=== PATIENT | female | born 1990 | race Caucasian/White ===

== ENCOUNTER 2018-03-29 16:01 | Inpatient (IN) | payer OTHER ==
[2018-03-29] MEDS ORDERED: THIAMINE 100 MG TAB PO SCH (17:00)
[2018-03-29] MEDS ORDERED: SODIUM CHLORIDE 0.9% 1,000 ML IV STA (17:03)
[2018-03-29] MEDS ORDERED: LORazepam 1 MG TAB PO STA (17:08)
[2018-03-29] MEDS ORDERED: ONDANSETRON 4 MG/2 ML VIAL IVP STA (17:09)
[2018-03-29 17:20] LABS: Chloride 102 mmol/L (98-107)
[2018-03-29 17:23] LABS: ALT 387 U/L (9-52); Albumin 4.1 g/dL (3.5-5.0); Alkaline Phosphatase 149 U/L (38-126); Amylase 133 U/L (30-110); Anion Gap 11 mmol/L; Blood Urea Nitrogen 4 mg/dL (7-17); Calcium 8.6 mg/dL (8.4-10.2); Carbon Dioxide 22 mmol/L (22-30); Glucose 92 mg/dL (74-99); Lipase 987 U/L (23-300); Potassium 3.9 mmol/L (3.5-5.1); Sodium 135 mmol/L (137-145); Total Bilirubin 1.1 mg/dL (0.2-1.3); Total Protein 7.1 g/dL (6.3-8.2)
[2018-03-29 17:24] LABS: Basophils % (A) 1 %; Eosinophils # (A) 0.1 k/uL (0-0.7); Eosinophils % (A) 4 %; HCT 30.4 % (34.0-46.0); HGB 10.7 gm/dL (11.4-16.0); Lymphocytes # (A) 0.3 k/uL (1.0-4.8); Lymphocytes % (A) 15 %; MCH 34.9 pg (25.0-35.0); MCHC 35.2 g/dL (31.0-37.0); MCV 99.2 fL (80.0-100.0); Macrocytosis Slight; Mean Platelet Volume 8.7; Monocytes # (A) 0.1 k/uL (0-1.0); Monocytes % (A) 6 %; Neutrophils # (A) 1.4 k/uL (1.3-7.7); Neutrophils % (A) 73 %; RBC 3.06 m/uL (3.80-5.40); RDW 15.6 % (11.5-15.5)
--- NOTE | 2018-03-29 17:24 | ED ---
General Adult HPI - General Chief complaint: Vaginal Bleeding Stated complaint: Bleeding rectum Time Seen by Provider: 03/29/18 16:17 Source: patient, RN notes reviewed Mode of arrival: ambulatory Limitations: no limitations - History of Present Illness Initial comments: 27-year-old female presents to the emergency department for a chief complaint of vaginal bleeding x 1 week. Patient was transferred from [facility] due to pancytopenia and vaginal bleeding. Patient states the bleeding started about one week ago and she has been passing clots. Patient has also been nauseous. She has a seizure disorder and takes Keppra for this. Patient also complains of lower abdominal cramping. Patient states her menstrual cycles are irregular and she has not had a period for the past 3 months. Patient denies any chance of . Patient denies concerns for sexually transmitted diseases. According to the documents from [facility] patient's hemoglobin decreased from 12.4 to 9.0 18 hours later while in the ED. Patient was held for an alcohol level of 413. Platelets were 43. Patient was sent for hematology consult. Patient states she is feeling somewhat lightheaded but this may be related to alcohol. Patient states she "drinks more days than not." Patient states she drinks no more than a pint of vodka on days that she does drink. Patient has no other complaints at this time including fevers, chest pain, headache, or visual changes. - Related Data Home Medications Medication Instructions Recorded Confirmed levETIRAcetam [Keppra] 750 mg PO BID 03/29/18 03/29/18 Allergies Allergy/AdvReac Type Severity Reaction Status Date / Time Penicillins Allergy Unknown Verified 03/29/18 16:15 Review of Systems ROS Statement: Those systems with pertinent positive or pertinent negative responses have been documented in the HPI. ROS Other: All systems not noted in ROS Statement are negative. Past Medical History Past Medical History: Seizure Disorder History of Any Multi-Drug Resistant Organisms: None Reported Past Surgical History: Section, Orthopedic Surgery Past Psychological History: No Psychological Hx Reported Smoking Status: Current some day smoker Past Alcohol Use History: Daily Past Drug Use History: None Reported - Past Family History Father Family Medical History: No Reported History Mother Family Medical History: No Reported History General Exam Limitations: no limitations General appearance: alert, in no apparent distress (well appearing, interactive , ) Head exam: Present: atraumatic, normocephalic, normal inspection Eye exam: Present: PERRL, EOMI, other (small subconjunctival hemorrhage noted of the right eye, patient states this improving and was worse one week ago.). Absent: scleral icterus, conjunctival injection ENT exam: Present: normal exam, normal oropharynx, mucous membranes moist, TM's normal bilaterally, normal external ear exam Neck exam: Present: normal inspection, full ROM. Absent: tenderness, meningismus, lymphadenopathy Respiratory exam: Present: normal lung sounds bilaterally. Absent: respiratory distress, wheezes, rales, rhonchi, stridor Cardiovascular Exam: Present: regular rate, normal rhythm, normal heart sounds. Absent: systolic murmur, diastolic murmur, rubs, gallop, clicks GI/Abdominal exam: Present: soft, tenderness (diffuse mild abdominal tenderness) , normal bowel sounds. Absent: distended, guarding, rebound, rigid External exam: Absent: erythema, swelling, lesions, lacerations, ecchymosis Speculum exam: Present: vaginal bleeding. Absent: vaginal discharge, cervical discharge, foreign body By manual exam: Present: adnexal tenderness, uterine tenderness, other (mild generalized tenderness noted on bimanual. No cervical motion tenderness.). Absent: cervical motion tenderness, adnexal mass, uterine enlargement Neurological exam: Present: alert, oriented X3, CN II-XII intact Psychiatric exam: Present: normal affect, normal mood Course Vital Signs 03/29/18 03/29/18 03/29/18 16:05 17:19 18:42 Temperature 98.3 F Pulse Rate 90 90 87 Pulse Rate [ Left Supine Brachial] Respiratory 18 18 18 Rate Blood Pressure 117/70 139/78 126/69 Blood Pressure [Left Arm Supine] O2 Sat by Pulse 100 100 100 Oximetry 03/29/18 03/29/18 03/29/18 19:38 21:01 22:07 Temperature 98.8 F Pulse Rate 94 91 Pulse Rate [ 90 Left Supine Brachial] Respiratory 16 17 16 Rate Blood Pressure 131/83 142/90 Blood Pressure 117/81 [Left Arm Supine] O2 Sat by Pulse 97 97 97 Oximetry Medical Decision Making - Medical Decision Making 27-year-old female transferred from [facility] for vaginal bleeding and pancytopenia. Patient has been experiencing vaginal bleeding for about one week. Patient denies any urinary symptoms, cough, congestion, shortness of breath, or fevers. Patient also complains of lower abdominal cramping. Patient is alert and oriented. She does not seem in distress. On exam patient has mild diffuse abdominal tenderness. Speculum exam reveals moderate vaginal bleeding with about 10 cc blood in vaginal vault. Bimanual exam does not reveal any cervical motion tenderness. Vitals within normal limits. Patient is afebrile. Patient does have leukopenia of 1.9 in the emergency department. Hemoglobin 10.7 and hematocrit 30.4. Platelet count 60. Patient also has an AST of 1387 and ALT of 387. Lipase 987. Patient does have a history of alcoholism. UA from [facility] shows negative leuk esterase without WBCs. Consistent findings here in the ER. Culture sent. HCG Quant negative. Ultrasound shows cervical cysts without endometrial thickening. Bilateral simple ovarian cyst. No evidence of ovarian torsion. On reevaluation patient is no longer tender upon palpation of the abdomen so CAT scan was not warranted at this point. It is likely that her lower abdominal cramping is related to vaginal bleeding. Patient would benefit from further workup of panctopenia as well as pancreatitis management. Patient will be admitted for pancytopenia of unknown source, vaginal bleeding, and pancreatitis. - Lab Data Result diagrams: 03/29/18 16:50 03/29/18 16:50 Lab Results 03/29/18 03/29/18 03/29/18 Range/Units 16:50 16:50 16:50 WBC 1.9 L* (3.8-10.6) k/uL RBC 3.06 L (3.80-5.40) m/uL Hgb 10.7 L (11.4-16.0) gm/dL Hct 30.4 L (34.0-46.0) % MCV 99.2 (80.0-100.0) fL MCH 34.9 (25.0-35.0) pg MCHC 35.2 (31.0-37.0) g/dL RDW 15.6 H (11.5-15.5) % Plt Count 60 L (150-450) k/uL Neutrophils % 73 % Lymphocytes % 15 % Monocytes % 6 % Eosinophils % 4 % Basophils % 1 % Neutrophils # 1.4 (1.3-7.7) k/uL Lymphocytes # 0.3 L (1.0-4.8) k/uL Monocytes # 0.1 (0-1.0) k/uL Eosinophils # 0.1 (0-0.7) k/uL Basophils # 0.0 (0-0.2) k/uL Manual Slide Review Performed Large Platelets Present Poikilocytosis (manual Present Macrocytosis Slight PT (9.0-12.0) sec INR (<1.2) APTT (22.0-30.0) sec Sodium 135 L (137-145) mmol/L Potassium 3.9 (3.5-5.1) mmol/L Chloride 102 (98-107) mmol/L Carbon Dioxide 22 (22-30) mmol/L Anion Gap 11 mmol/L BUN 4 L (7-17) mg/dL Creatinine 0.59 (0.52-1.04) mg/dL Est GFR (CKD-EPI)AfAm >90 (>60 ml/min/1.73 sqM) Est GFR (CKD-EPI)NonAf >90 (>60 ml/min/1.73 sqM) Glucose 92 (74-99) mg/dL Calcium 8.6 (8.4-10.2) mg/dL Magnesium (1.6-2.3) mg/dL Total Bilirubin 1.1 (0.2-1.3) mg/dL AST 1387 H (14-36) U/L ALT 387 H (9-52) U/L Alkaline Phosphatase 149 H (38-126) U/L Total Protein 7.1 (6.3-8.2) g/dL Albumin 4.1 (3.5-5.0) g/dL Amylase 133 H (30-110) U/L Lipase 987 H (23-300) U/L HCG, Quant <2.4 mIU/mL Urine Color Dark Red Urine Appearance Bloody H (Clear) Urine pH (5.0-8.0) Ur Specific [place] (1.001-1.035) Urine Protein (Negative) Urine Glucose (UA) (Negative) Urine Ketones (Negative) Urine Blood (Negative) Urine Nitrite (Negative) Urine Bilirubin (Negative) Urine Urobilinogen (<2.0) mg/dL Ur Leukocyte Esterase (Negative) Urine RBC >182 H (0-5) /hpf Urine WBC (0-5) /hpf Ur Squamous Epith Cells 3 (0-4) /hpf Urine Bacteria (None) /hpf Urine Mucus (None) /hpf Urine HCG, Qual (Not Detectd) Blood Type Blood Type Confirm Blood Type Recheck Antibody Screen Spec Expiration Date 03/29/18 03/29/18 03/29/18 Range/Units 16:50 16:50 16:50 WBC (3.8-10.6) k/uL RBC (3.80-5.40) m/uL Hgb (11.4-16.0) gm/dL Hct (34.0-46.0) % MCV (80.0-100.0) fL MCH (25.0-35.0) pg MCHC (31.0-37.0) g/dL RDW (11.5-15.5) % Plt Count (150-450) k/uL Neutrophils % % Lymphocytes % % Monocytes % % Eosinophils % % Basophils % % Neutrophils # (1.3-7.7) k/uL Lymphocytes # (1.0-4.8) k/uL Monocytes # (0-1.0) k/uL Eosinophils # (0-0.7) k/uL Basophils # (0-0.2) k/uL Manual Slide Review Large Platelets Poikilocytosis (manual Macrocytosis PT (9.0-12.0) sec INR (<1.2) APTT (22.0-30.0) sec Sodium (137-145) mmol/L Potassium (3.5-5.1) mmol/L Chloride (98-107) mmol/L Carbon Dioxide (22-30) mmol/L Anion Gap mmol/L BUN (7-17) mg/dL Creatinine (0.52-1.04) mg/dL Est GFR (CKD-EPI)AfAm (>60 ml/min/1.73 sqM) Est GFR (CKD-EPI)NonAf (>60 ml/min/1.73 sqM) Glucose (74-99) mg/dL Calcium (8.4-10.2) mg/dL Magnesium 1.3 L (1.6-2.3) mg/dL Total Bilirubin (0.2-1.3) mg/dL AST (14-36) U/L ALT (9-52) U/L Alkaline Phosphatase (38-126) U/L Total Protein (6.3-8.2) g/dL Albumin (3.5-5.0) g/dL Amylase (30-110) U/L Lipase (23-300) U/L HCG, Quant mIU/mL Urine Color Urine Appearance (Clear) Urine pH (5.0-8.0) Ur Specific [place] (1.001-1.035) Urine Protein (Negative) Urine Glucose (UA) (Negative) Urine Ketones (Negative) Urine Blood (Negative) Urine Nitrite (Negative) Urine Bilirubin (Negative) Urine Urobilinogen (<2.0) mg/dL Ur Leukocyte Esterase (Negative) Urine RBC (0-5) /hpf Urine WBC (0-5) /hpf Ur Squamous Epith Cells (0-4) /hpf Urine Bacteria (None) /hpf Urine Mucus (None) /hpf Urine HCG, Qual Not Detected (Not Detectd) Blood Type B Positive Blood Type Confirm Blood Type Recheck CABO Indicated Antibody Screen NEGATIVE Spec Expiration Date 04/01/2018 - 234903/29/18 03/29/18 03/29/18 Range/Units 16:50 17:10 19:30 WBC (3.8-10.6) k/uL RBC (3.80-5.40) m/uL Hgb (11.4-16.0) gm/dL Hct (34.0-46.0) % MCV (80.0-100.0) fL MCH (25.0-35.0) pg MCHC (31.0-37.0) g/dL RDW (11.5-15.5) % Plt Count (150-450) k/uL Neutrophils % % Lymphocytes % % Monocytes % % Eosinophils % % Basophils % % Neutrophils # (1.3-7.7) k/uL Lymphocytes # (1.0-4.8) k/uL Monocytes # (0-1.0) k/uL Eosinophils # (0-0.7) k/uL Basophils # (0-0.2) k/uL Manual Slide Review Large Platelets Poikilocytosis (manual Macrocytosis PT 9.8 (9.0-12.0) sec INR 1.0 (<1.2) APTT 22.8 (22.0-30.0) sec Sodium (137-145) mmol/L Potassium (3.5-5.1) mmol/L Chloride (98-107) mmol/L Carbon Dioxide (22-30) mmol/L Anion Gap mmol/L BUN (7-17) mg/dL Creatinine (0.52-1.04) mg/dL Est GFR (CKD-EPI)AfAm (>60 ml/min/1.73 sqM) Est GFR (CKD-EPI)NonAf (>60 ml/min/1.73 sqM) Glucose (74-99) mg/dL Calcium (8.4-10.2) mg/dL Magnesium (1.6-2.3) mg/dL Total Bilirubin (0.2-1.3) mg/dL AST (14-36) U/L ALT (9-52) U/L Alkaline Phosphatase (38-126) U/L Total Protein (6.3-8.2) g/dL Albumin (3.5-5.0) g/dL Amylase (30-110) U/L Lipase (23-300) U/L HCG, Quant mIU/mL Urine Color Yellow Urine Appearance Clear (Clear) Urine pH 7.0 (5.0-8.0) Ur Specific [place] 1.009 (1.001-1.035) Urine Protein Negative (Negative) Urine Glucose (UA) Negative (Negative) Urine Ketones Negative (Negative) Urine Blood Negative (Negative) Urine Nitrite Negative (Negative) Urine Bilirubin Negative (Negative) Urine Urobilinogen 4.0 (<2.0) mg/dL Ur Leukocyte Esterase Trace H (Negative) Urine RBC <1 (0-5) /hpf Urine WBC 5 (0-5) /hpf Ur Squamous Epith Cells (0-4) /hpf Urine Bacteria Rare H (None) /hpf Urine Mucus Rare H (None) /hpf Urine HCG, Qual (Not Detectd) Blood Type Blood Type Confirm B Positive Blood Type Recheck Antibody Screen Spec Expiration Date Disposition Clinical Impression: Pancytopenia, Pancreatitis, Vaginal bleeding Disposition: ADMITTED IP TO THIS [facility] Condition: Good Time of Disposition: 20:36
[2018-03-29 17:27] LABS: WBC 1.9 k/uL (3.8-10.6)
[2018-03-29 17:30] LABS: RBC,Urine >182 /hpf (0-5); Squamous Epithelial Cell,Urine 3 /hpf (0-4)
[2018-03-29 17:31] LABS: Color,Urine Dark Red
[2018-03-29 17:32] LABS: Appearance,Urine Bloody (Clear)
[2018-03-29 17:39] LABS: AST 1387 U/L (14-36)
[2018-03-29 17:40] LABS: HCG,Quantitative Serum <2.4 mIU/mL
[2018-03-29 17:41] LABS: Large Platelets Present; Platelet Count 60 k/uL (150-450); Poikilocytosis (M) Present
--- NOTE | 2018-03-29 17:57 | US ---
EXAMINATION TYPE: US transvaginal DATE OF EXAM: 03/29/2018 COMPARISON: NONE CLINICAL HISTORY: pain. Heavy vaginal bleeding x 1 week TECHNIQUE: Transvaginal (TV). Date of LMP: 1 week ago EXAM MEASUREMENTS: Uterus: 11.0 x 4.3 x 5.3 cm Endometrial Stripe: 1.2 cm Right Ovary: 3.2 x 2.0 x 3.5 cm Left Ovary: 2.5 x 1.7 x 3.1 cm 1. Uterus: Anteverted Heterogeneous with multiple Nabothian cysts in cervix 2. Endometrium: Ill-defined borders, thickened 3. Right Ovary: Dominant follicle= 1.8 x 1.1 cm 4. Left Ovary: Follicles Spectral, color and waveform doppler imaging shows good arterial and venous flow within the ovaries ; there is no evidence for ovarian torsion. 5. Bilateral Adnexa: wnl 6. Posterior cul-de-sac: wnl IMPRESSION: Cervical cysts. No endometrial thickening. Bilateral simple ovarian cysts. No evidence of ovarian torsion.
[2018-03-29 20:09] LABS: Partial Thromboplastin Time 22.8 sec (22.0-30.0); Prothrombin Time 9.8 sec (9.0-12.0)
[2018-03-29] MEDS ORDERED: NALOXONE 0.4 MG/ML 1 ML VIAL IV PRN (20:29)
[2018-03-29] MEDS ORDERED: LORazepam 2 MG/ML INJ IV PRN ×2 (21:23)
[2018-03-29] MEDS ORDERED: THIAMINE 100 MG/ML 2 ML VIAL IM STA (21:23)
[2018-03-29] MEDS ORDERED: SODIUM CHLORIDE 0.9% 1,000 ML IV SCH (21:30)
[2018-03-29] MEDS: THIAMINE 100 MG TAB PO SCH (22:28)
[2018-03-29 22:30] LABS: Appearance,Urine Clear (Clear); Bacteria,Urine Rare /hpf; Bilirubin,Urine Negative (Negative); Blood,Urine Negative (Negative); Color,Urine Yellow; Glucose,Urine (UA) Negative (Negative); Ketones,Urine Negative (Negative); Leukocyte Esterase,Urine Trace (Negative); Mucus,Urine Rare /hpf; Nitrite,Urine Negative (Negative); Protein,Urine Negative (Negative); RBC,Urine <1 /hpf (0-5); Specific Gravity,Urine 1.009 (1.001-1.035); WBC,Urine 5 /hpf (0-5)
[2018-03-29] MEDS ORDERED: HYDROmorphone 1 MG/ML 1 ML SYRINGE IVP PRN (23:26)
[2018-03-29] MEDS ORDERED: traMADol-ACETAMINOP 37.5-325MG 1 EACH TAB PO PRN (23:26)
[2018-03-29] MEDS ORDERED: TEMAZEPAM 15 MG CAP PO PRN (23:26)
[2018-03-29] MEDS ORDERED: traMADol 50 MG TAB PO PRN (23:27)
[2018-03-30] MEDS: MAGNESIUM SULFATE-D5W PMX 1 GM in DEXTROSE/WATER 1 100ML.BAG IVPB SCH ×2 (00:29→01:33)
[2018-03-30] MEDS: SODIUM CHLORIDE 0.9% 1,000 ML with POTASSIUM CHLORIDE 20 MEQ, MVI, ADULT NO.4 WITH VIT ... IV SCH ×10 (00:29→15:54)
--- NOTE | 2018-03-30 06:12 | HP ---
HISTORY AND PHYSICAL CHIEF COMPLAINTS: Vaginal bleeding and pancytopenia. HISTORY OF PRESENT ILLNESS: This 27-year-old woman with a past medical history of seizure disorder, history of heartburn, history of right ankle bruise sprain and significant history of alcohol and smoking being followed Dr. Salazar in the outpatient setting presented to [facility] with vaginal bleeding. The patient drinks 4-5 days out of the week and the patient could drink up to a pint of vodka and beer 5 or 6 on days that patient drinks. The patient was found to have pancytopenia and the patient was directed to [facility] for further evaluation and treatment. Hemoglobin reduced from 12.4 to 9 and alcohol was 413, platelets also reduced. There is no history of any fever, rigors. No headache, loss of consciousness, seizures at this time. PAST MEDICAL HISTORY: Seizure disorder, history of section, history of nicotine abuse, history of EtOH. MEDICATIONS: Prior to admission include Keppra 750 p.o. b.i.d. ALLERGIES: PENICILLIN. FAMILY HISTORY: No history of heart disease or strokes in family. SOCIAL HISTORY: History of smoking. No history of alcohol. REVIEW OF SYSTEMS: ENT: No diminished hearing or diminished vision. CARDIOVASCULAR: No angina. RESPIRATORY: As mentioned earlier. GI: No nausea. : No dysuria. NERVOUS SYSTEM: No numbness or weakness. ALLERGY/IMMUNOLOGY: No asthma or hayfever. MUSCULOSKELETAL: As mentioned earlier. HEMATOLOGY/ONCOLOGY: No history of anemia. ENDOCRINE: No history of diabetes or hypothyroidism. CONSTITUTIONAL: As mentioned earlier. DERMATOLOGY: Negative. RHEUMATOLOGY: Negative. PSYCHIATRY: As mentioned earlier. PHYSICAL EXAMINATION: Alert and oriented x3. Pulse 90, blood pressure 170/81, respiration 16, temperature 98.8, pulse ox 97% on room air. HEENT: Conjunctivae normal. Oral mucosa moist. Neck is no jugular venous distention. No carotid bruit. No lymph node enlargement. CARDIOVASCULAR: S1, S2. RESPIRATORY: Breath sounds diminished in the bases. A few scattered rhonchi. No crackles. ABDOMEN: Soft, mild diffuse disease. Nontender. No mass palpable. LEGS: No edema, no swelling. NERVOUS SYSTEM: Higher functions as mentioned. Moves all 4 limbs. No focal motor deficits. LYMPHATICS: No lymphadenopathy in the neck, axillae, groin. SKIN: No ulcer, rash, bleeding. LAB STUDIES: WBC 1, hemoglobin 10.7, platelets 60. Sodium is 135, AST is 1387, ALT is 387, and amylase 133 and lipase 987. ASSESSMENT: 1. Pancytopenia, possibly secondary to alcohol intake. 2. Acute alcoholic intoxication and withdrawal. 3. Acute pancreatitis possibly secondary to alcohol. 4. Acute alcoholic hepatitis with increased AST and ALT. 5. Hypomagnesemia. 6. Vaginal bleeding. 7. Seizure disorder. 8. History of untreated urinary tract infection. 9. History of gastroesophageal reflux disease. 10.History of right ankle sprain. 11.History of motion sickness. 12.History of nicotine dependence. RECOMMENDATIONS AND DISCUSSION: This 27-year-old woman who presented with multiple complex medical issues, we will monitor the patient closely. Continue the current management and symptomatic treatment. Alcohol cessation. CIWA protocol. Symptomatic treatment. Repeat labs. The exact etiology pancytopenia, unknown at this time, but could be secondary to alcohol. The patient also had normal coags with normal PT/INR and PTT. We will continue to monitor for any vaginal bleeding. In case of recurrence will recommend an [employer] consultation. Otherwise the transvaginal ultrasound showed cervical cyst and no evidence of torsion and endometrial thickening and bilateral simple ovarian cyst also. The prognosis guarded because of multiple complex medical issues and further recommendations to follow. I would also recommend a CT scan of the abdomen if not done elsewhere. A copy of dictation forwarded to for Dr. Salazar who is the primary physician. MMODL / IJN: [id number] /
[2018-03-30] MEDS: LORazepam 2 MG/ML INJ IV PRN ×2 (06:36→13:07)
[2018-03-30] MEDS: IOPAMIDOL-300 CONTRAST 30 ML VIAL (ORAL USE) PO PRN ×2 (06:43→07:58)
[2018-03-30 09:43] LABS: Basophils % (A) 1 %; Eosinophils # (A) 0.1 k/uL (0-0.7); Eosinophils % (A) 3 %; HCT 27.1 % (34.0-46.0); HGB 9.4 gm/dL (11.4-16.0); Lymphocytes # (A) 0.3 k/uL (1.0-4.8); Lymphocytes % (A) 8 %; MCH 35.3 pg (25.0-35.0); MCHC 34.7 g/dL (31.0-37.0); MCV 101.8 fL (80.0-100.0); Macrocytosis Slight; Monocytes # (A) 0.2 k/uL (0-1.0); Monocytes % (A) 6 %; Neutrophils # (A) 2.5 k/uL (1.3-7.7); Neutrophils % (A) 82 %; RBC 2.67 m/uL (3.80-5.40); RDW 15.9 % (11.5-15.5); WBC 3.1 k/uL (3.8-10.6)
[2018-03-30 10:00] LABS: ALT 537 U/L (9-52); Albumin 3.4 g/dL (3.5-5.0); Alkaline Phosphatase 127 U/L (38-126); Amylase 151 U/L (30-110); Anion Gap 7 mmol/L; Blood Urea Nitrogen 3 mg/dL (7-17); Calcium 8.4 mg/dL (8.4-10.2); Carbon Dioxide 27 mmol/L (22-30); Chloride 101 mmol/L (98-107); Glucose 87 mg/dL (74-99); Lipase 1245 U/L (23-300); Potassium 3.7 mmol/L (3.5-5.1); Sodium 135 mmol/L (137-145); Total Bilirubin 1.3 mg/dL (0.2-1.3); Total Protein 6.1 g/dL (6.3-8.2)
[2018-03-30 10:27] LABS: AST 1383 U/L (14-36)
[2018-03-30 10:37] LABS: Platelet Count 58 k/uL (150-450)
[2018-03-30 10:39] LABS: Poikilocytosis (M) Present
--- NOTE | 2018-03-30 11:10 | CT ---
EXAMINATION TYPE: CT abdomen pelvis wo con DATE OF EXAM: 03/30/2018 HISTORY: lower abdominal pain and vaginal bleeding CT DLP: 938 mGycm. Automated Exposure Control for Dose Reduction was Utilized. TECHNIQUE: CT scan of the abdomen and pelvis is performed with oral but without IV contrast. COMPARISON: Transvaginal pelvic ultrasound from yesterday. FINDINGS: Within the limitations of a non-contrast study, the following observations are made. LUNG BASES: No significant abnormality is appreciated. LIVER/GB: Liver is diffusely low dense consistent with marked diffuse fatty infiltration. Liver is fe lt overall upper limits of normal in size. Gallbladder has distended margins without CT dense intralu vero focal gallstones or surrounding inflammatory change. PANCREAS: Pancreas is slightly bulky particularly body and tail portion axial image 28 without surrou nding inflammatory change to suggest acute pancreatitis perhaps normal variant. SPLEEN: Spleen is upper limits of normal in size measuring 12.9 cm long axis axial image 24. Subcenti meter splenule splenic hilum axial image 29 is noted. ADRENALS: No significant abnormality is seen. KIDNEYS: No renal calculi or hydronephrosis is evident bilaterally. Bladder felt within normal limits . BOWEL: The oral contrast reaches level of the transverse colon. There is no suspicious small or large bowel dilatation. GENITAL ORGANS: There is heterogeneous anteverted uterus with complex suspected solid and cystic mass or lesion in the lower uterine segment and cervix, cervical neoplasm needs to be excluded seen best axial image 80. Correlation with direct physical exam and/or Pap smear is advised. Findings less susp icious on pelvic ultrasound which is more sensitive just showing multiple nabothian cysts. Both ovari es are seen in the adnexa without suspicious enlargement. LYMPH NODES: No greater than 1cm abdominal or pelvic lymph nodes are appreciated. OSSEOUS STRUCTURES: Mild facet arthropathy lower lumbar levels is seen.. OTHER: No significant additional abnormality is seen. IMPRESSION: Lower uterine segment and cervix are more suspicious on CT versus ultrasound and neoplasm needs to BE excluded. No suspicious masses or adenopathy otherwise identified.
[2018-03-30] MEDS ORDERED: ONDANSETRON 4 MG/2 ML VIAL IVP PRN (11:33)
[2018-03-30] MEDS: THIAMINE 100 MG TAB PO SCH ×2 (13:02→17:55)
--- NOTE | 2018-03-30 14:07 | P.CONS ---
History of Present Illness - Reason for Consult Consult date: 03/30/18 Pancreatitis elevated liver enzymes Requesting physician: Javier E Sheet - History of Present Illness 27-year-old female with a long-standing history of daily alcohol consumption on and off for several years last drink a few days prior to admission admitted with possible vaginal bleeding possibly hematuria she's unsure. Consultation requested for elevated pancreatic and liver enzymes. Denies history of pancreatic liver diseases. No history of hepatitis. She's been experiencing bloody discharge possibly vaginal possible hematuria with clots for 2 weeks. Mild lower abdominal pelvic discomfort. No history of pancreatitis. White count 1.9. Hemoglobin 10.7. Platelets 60,000. INR 1.0. Total bilirubin 1.1. AST 1387. ALT 387. AP 149. Lipase 987. Amylase 133. HCG not detected. Liver enzymes today total bilirubin 1.3. AST 1383. ALT 537. AP 127. Amylase 151. Lipase 1245. Presently denies upper abdominal pain. No fever or chills. No weight loss. Transvaginal ultrasound cervical cysts no endometrial thickening bilateral simple ovarian cysts. CT abdomen liver is diffusely low dense consistent with marked diffuse fatty infiltration. Gallbladder without stones or inflammatory changes. Pancreas slightly bulky in the body and tail without surrounding inflammatory change possible normal variant. Heterogeneous anteverted uterus with complex suspected solid and cystic mass or lesion in the lower uterine segment and cervix. Cervical neoplasm could not be excluded. Review of Systems Constitutional: Denies fever, chills, sweats, weight gain, or loss. HEENT: Negative for migraines, blurred vision or loss, earaches, drainage, tinnitus, oral mucosal lesions, dysphagia, or odynophagia. CARDIAC: Negative for chest pain, arrhythmias, or palpitation. RESPIRATORY: Negative for shortness of breath, hemoptysis, cough, or sputum production. GI: See HPI for pertinent findings. : Possible hematuria, denies urgency, frequency, polyuria, or dysuria. GYNc: Denies possibility of . Reports possible bloody vaginal discharge. MUSCULOSKELETAL: Negative for muscle aches, swelling, arthritis, and arthralgias. NEUROLOGIC: Negative for stroke or TIA. ENDOCRINE: Negative for thyroid problems. SKIN: Negative for rash or itching. 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 History of Any Multi-Drug Resistant Organisms: None Reported Past Surgical History: Section, Orthopedic Surgery Additional Past Surgical History / Comment(s): 2 rt foot sx in past Past Anesthesia/Blood Transfusion Reactions: Motion Sickness Past Psychological History: No Psychological Hx Reported Smoking Status: Current some day smoker Past Alcohol Use History: Daily Past Drug Use History: None Reported - Past Family History Father Family Medical History: No Reported History Mother Family Medical History: No Reported History Medications and Allergies Home Medications Medication Instructions Recorded Confirmed Type levETIRAcetam [Keppra] 750 mg PO BID 03/29/18 03/29/18 History Allergies Allergy/AdvReac Type Severity Reaction Status Date / Time Penicillins Allergy Unknown Verified 03/29/18 16:15 Physical Exam Vitals: Vital Signs Temp Pulse Pulse Resp BP BP Pulse Ox 03/30/18 07:00 98.8 F 100 20 109/72 100 03/29/18 22:07 98.8 F 90 16 117/81 97 03/29/18 21:01 91 17 142/90 97 03/29/18 19:38 94 16 131/83 97 03/29/18 18:42 87 18 126/69 100 03/29/18 17:19 90 18 139/78 100 03/29/18 16:05 98.3 F 90 18 117/70 100 Intake and Output 03/29/18 03/30/18 03/30/18 22:59 06:59 14:59 Intake Total 0 Balance 0 Intake: Oral 0 Other: # Voids 1 0 Weight 89.5 kg General appearance: The patient is alert, oriented, in no acute distress. HET: Head is normocephalic and atraumatic. Pupils are equal and reactive. Oropharynx is clear without lesions. Neck: Supple without lymphadenopathy. Trachea midline. Heart: S1 S2. Regular rate and rhythm. Lungs: No crackles or wheezes are heard. Abdomen: Soft, nontender, nondistended with bowel sounds. No peritoneal signs. No palpable organomegaly or masses. Extremities: Normal skin color and turgor. No cyanosis, rash, ulceration, clubbing, or edema. Radial and pedal pulses are 2/4 bilaterally. Neurological: No focal deficits. Strength and sensation are grossly intact. Results CBC & Chem 7: 18 08:34 03/30/18 08:34 Labs: Abnormal Lab Results - Last 24 Hours (Table) 03/29/18 03/29/18 03/29/18 Range/Units 16:50 16:50 16:50 WBC 1.9 L* (3.8-10.6) k/uL RBC 3.06 L (3.80-5.40) m/uL Hgb 10.7 L (11.4-16.0) gm/dL Hct 30.4 L (34.0-46.0) % MCV (80.0-100.0) fL MCH (25.0-35.0) pg RDW 15.6 H (11.5-15.5) % Plt Count 60 L (150-450) k/uL Lymphocytes # 0.3 L (1.0-4.8) k/uL Sodium 135 L (137-145) mmol/L BUN 4 L (7-17) mg/dL Magnesium (1.6-2.3) mg/dL AST 1387 H (14-36) U/L ALT 387 H (9-52) U/L Alkaline Phosphatase 149 H (38-126) U/L Total Protein (6.3-8.2) g/dL Albumin (3.5-5.0) g/dL Amylase 133 H (30-110) U/L Lipase 987 H (23-300) U/L Urine Appearance Bloody H (Clear) Ur Leukocyte Esterase (Negative) Urine RBC >182 H (0-5) /hpf Urine Bacteria (None) /hpf Urine Mucus (None) /hpf 03/29/18 03/29/18 03/30/18 Range/Units 16:50 19:30 08:34 WBC 3.1 L (3.8-10.6) k/uL RBC 2.67 L (3.80-5.40) m/uL Hgb 9.4 L (11.4-16.0) gm/dL Hct 27.1 L (34.0-46.0) % MCV 101.8 H (80.0-100.0) fL MCH 35.3 H (25.0-35.0) pg RDW 15.9 H (11.5-15.5) % Plt Count 58 L (150-450) k/uL Lymphocytes # 0.3 L (1.0-4.8) k/uL Sodium (137-145) mmol/L BUN (7-17) mg/dL Magnesium 1.3 L (1.6-2.3) mg/dL AST (14-36) U/L ALT (9-52) U/L Alkaline Phosphatase (38-126) U/L Total Protein (6.3-8.2) g/dL Albumin (3.5-5.0) g/dL Amylase (30-110) U/L Lipase (23-300) U/L Urine Appearance (Clear) Ur Leukocyte Esterase Trace H (Negative) Urine RBC (0-5) /hpf Urine Bacteria Rare H (None) /hpf Urine Mucus Rare H (None) /hpf 03/30/ Range/Units 08:34 WBC (3.8-10.6) k/uL RBC (3.80-5.40) m/uL Hgb (11.4-16.0) gm/dL Hct (34.0-46.0) % MCV (80.0-100.0) fL MCH (25.0-35.0) pg RDW (11.5-15.5) % Plt Count (150-450) k/uL Lymphocytes # (1.0-4.8) k/uL Sodium 135 L (137-145) mmol/L BUN 3 L (7-17) mg/dL Magnesium (1.6-2.3) mg/dL AST 1383 H (14-36) U/L ALT 537 H (9-52) U/L Alkaline Phosphatase 127 H (38-126) U/L Total Protein 6.1 L (6.3-8.2) g/dL Albumin 3.4 L (3.5-5.0) g/dL Amylase 151 H (30-110) U/L Lipase 1245 H (23-300) U/L Urine Appearance (Clear) Ur Leukocyte Esterase (Negative) Urine RBC (0-5) /hpf Urine Bacteria (None) /hpf Urine Mucus (None) /hpf CT scan - abdomen: report reviewed (Dr. Hartley) Assessment and Plan (1) Pancreatitis Narrative/Plan: 27-year-old female with a long-standing history of daily EtOH consumption admitted with possible vaginal bleeding possible hematuria 2 weeks with clots with elevated transaminases and pancreatic enzymes consistent with acute pancreatitis alcohol hepatitis underlying pancytopenia reflective of chronic liver disease platelet sequestration. CT imaging of the abdomen and pelvis could not exclude underlying cervical neoplasm. Underlying fatty liver disease suggested mild splenomegaly without biliary duct dilatation. Current Visit: Yes Status: Acute Code(s): K85.90 - ACUTE PANCREATITIS WITHOUT NECROSIS OR INFECTION, UNSP SNOMED Code(s): 37300195 (2) Alcoholic hepatitis Current Visit: Yes Status: Acute Code(s): K70.10 - ALCOHOLIC HEPATITIS WITHOUT ASCITES SNOMED Code(s): 869748771 (3) ETOH abuse Current Visit: Yes Status: Acute Code(s): F10.10 - ALCOHOL ABUSE, UNCOMPLICATED SNOMED Code(s): 00604610 (4) Cervix abnormality Narrative/Plan: Cervical neoplasm could not be excluded per CT of the abdomen and pelvis Current Visit: Yes Status: Acute Code(s): N88.9 - NONINFLAMMATORY DISORDER OF CERVIX UTERI, UNSPECIFIED SNOMED Code(s): 65975552 (5) Pancytopenia Current Visit: Yes Status: Acute Code(s): D61.818 - OTHER PANCYTOPENIA SNOMED Code(s): 874265126 Plan: 1. Hepatitis screen. AFP. Light diet as tolerated. Repeat CMP pancreatic enzymes in a.m. and in 1 week, follow-up in [place] office in 3-4 weeks for reevaluation. We'll follow with you. Alcoholic absence was advised. Gynecology consultation. Thank you for this kind referral and the opportunity to participate in the care of your patient. This consultation was discussed with Dr. Hartley. The impression and plan of care have been directed as dictated.
--- NOTE | 2018-03-30 17:58 | P.PN ---
Subjective Progress Note Date: 03/30/18 Progress note Being dictated for Dr. Graff. Interval history: This is a 27-year-old female admitted with pancytopenia, acute alcoholic intoxication with DTs, acute alcoholic pancreatitis, vaginal bleeding and multiple other medical issues. Maintained on CIWA protocol. Last Medicated with Ativan last night. Bloody discharge with Blood clots noted in urine-possibly vaginal, UA negative for blood. Hemoglobin 9.4. CT of abdomen and pelvis reporting lower uterine segment and cervix mass/lesion, suspicious of cervical neoplasm. Complains of fluctuating bilateral lower quadrants abdominal pain. Total bili 1.3, lipase worsening, 1245, LFTs remain elevated with ALT increased. Review of systems: CONSTITUTIONAL: No fever, positive fatigue HEENT: No recent visual problems or hearing problems. Denied any sore throat. CARDIOVASCULAR: No chest pain, orthopnea, PND, no palpitations, no syncope. PULMONARY: No shortness of breath, no cough, no hemoptysis. GASTROINTESTINAL: No diarrhea, no nausea, no vomiting, positive abdominal pain. Normoactive bowel sounds. NEUROLOGICAL: No headaches, no weakness, no numbness. HEMATOLOGICAL: Denies any bleeding or petechiae. GENITOURINARY: Denies any hematuria, burning micturition, frequency, or urgency. MUSCULOSKELETAL/RHEUMATOLOGICAL: Denies any joint pain, swelling, or any muscle pain. ENDOCRINE: Denies any polyuria or polydipsia. PSYCHIATRIC: No anxiety, no depression The rest of the 14 point review of systems is negative Active Medications Hydromorphone HCl (Dilaudid) 0.5 mg IVP Q6HR PRN PRN Reason: Severe Pain Potassium Chloride 20 meq/Parenteral Vitamin Supplement 10 ml/ Thiamine HCl 100 mg/Folic Acid 1 mg/ Sodium Chloride 1,021.2 mls @ 75 mls/hr IV .[id number] [facility] Last Admin: 03/30/18 15:54 Dose: 75 mls/hr Levetiracetam (Keppra) 750 mg PO BID [facility] Last Admin: 03/30/18 08:01 Dose: 750 mg Lorazepam (Ativan) 1 mg IV Q2HR PRN PRN Reason: CIWA 8 or 9 Last Admin: 03/30/18 13:07 Dose: 1 mg Lorazepam (Ativan) 1 mg IV Q1HR PRN PRN Reason: CIWA 10 to 15 Lorazepam (Ativan) 2 mg IV Q10M PRN PRN Reason: CIWA 16 or higher Stop: 03/31/18 21:23 Naloxone HCl (Narcan) 0.2 mg IV Q2M PRN PRN Reason: Opioid Reversal Ondansetron HCl (Zofran) 4 mg IVP Q6HR PRN PRN Reason: Nausea And Vomiting Temazepam (Restoril) 15 mg PO HS PRN PRN Reason: Insomnia Thiamine HCl (Vitamin B-1) 100 mg PO BID@1200,1700 CE Last Admin: 03/30/18 13:02 Dose: 100 mg Tramadol HCl (Ultram) 50 mg PO QID PRN PRN Reason: MODERATE Pain Objective - Vital Signs Vital signs: Vital Signs Temp 98.8 F 03/30/18 07:00 Pulse 100 03/30/18 07:00 Resp 20 03/30/18 07:00 BP 109/72 03/30/18 07:00 Pulse Ox 100 03/30/18 07:00 Intake & Output 03/29/18 03/30/18 03/30/18 18:59 06:59 18:59 Intake Total 0 Balance 0 Weight 77.111 kg 89.5 kg Intake: Oral 0 Other: # Voids 0 - Exam PHYSICAL EXAM: VITAL SIGNS: As above GENERAL: Sitting up in bed, no acute distress HEENT: Conjunctivae normal. eyes normal. Oral mucosa dry NECK: No JVD. No thyroid enlargement. No LNs CARDIOVASCULAR: S1, S2 muffled. No murmur RESPIRATION: Breath sounds diminished in the bases. No rhonchi or crackles. No bronchial breathing. ABDOMEN: Soft, nontender . No guarding. no masses palpable. Bowel sounds heard. LEGS: No edema. no swelling PSYCHIATRY: Alert and oriented -3, mood and affect normal. NERVOUS SYSTEM: Cranial N 2-12 grossly normal. Moves all 4 limbs. Diffuse weakness ,No focal deficits. - Labs CBC & Chem 7: 03/30/18 08:34 03/30/18 08:34 Labs: Abnormal Lab Results - Last 24 Hours (Table) 03/29/18 03/29/18 03/29/18 Range/Units 16:50 16:50 16:50 WBC 1.9 L* (3.8-10.6) k/uL RBC 3.06 L (3.80-5.40) m/uL Hgb 10.7 L (11.4-16.0) gm/dL Hct 30.4 L (34.0-46.0) % MCV (80.0-100.0) fL MCH (25.0-35.0) pg RDW 15.6 H (11.5-15.5) % Plt Count 60 L (150-450) k/uL Lymphocytes # 0.3 L (1.0-4.8) k/uL Sodium 135 L (137-145) mmol/L BUN 4 L (7-17) mg/dL Magnesium (1.6-2.3) mg/dL AST 1387 H (14-36) U/L ALT 387 H (9-52) U/L Alkaline Phosphatase 149 H (38-126) U/L Total Protein (6.3-8.2) g/dL Albumin (3.5-5.0) g/dL Amylase 133 H (30-110) U/L Lipase 987 H (23-300) U/L Urine Appearance Bloody H (Clear) Ur Leukocyte Esterase (Negative) Urine RBC >182 H (0-5) /hpf Urine Bacteria (None) /hpf Urine Mucus (None) /hpf 03/29/18 03/29/18 03/30/18 Range/Units 16:50 19:30 08:34 WBC 3.1 L (3.8-10.6) k/uL RBC 2.67 L (3.80-5.40) m/uL Hgb 9.4 L (11.4-16.0) gm/dL Hct 27.1 L (34.0-46.0) % MCV 101.8 H (80.0-100.0) fL MCH 35.3 H (25.0-35.0) pg RDW 15.9 H (11.5-15.5) % Plt Count 58 L (150-450) k/uL Lymphocytes # 0.3 L (1.0-4.8) k/uL Sodium (137-145) mmol/L BUN (7-17) mg/dL Magnesium 1.3 L (1.6-2.3) mg/dL AST (14-36) U/L ALT (9-52) U/L Alkaline Phosphatase (38-126) U/L Total Protein (6.3-8.2) g/dL Albumin (3.5-5.0) g/dL Amylase (30-110) U/L Lipase (23-300) U/L Urine Appearance (Clear) Ur Leukocyte Esterase Trace H (Negative) Urine RBC (0-5) /hpf Urine Bacteria Rare H (None) /hpf Urine Mucus Rare H (None) /hpf 03/30/ Range/Units 08:34 WBC (3.8-10.6) k/uL RBC (3.80-5.40) m/uL Hgb (11.4-16.0) gm/dL Hct (34.0-46.0) % MCV (80.0-100.0) fL MCH (25.0-35.0) pg RDW (11.5-15.5) % Plt Count (150-450) k/uL Lymphocytes # (1.0-4.8) k/uL Sodium 135 L (137-145) mmol/L BUN 3 L (7-17) mg/dL Magnesium (1.6-2.3) mg/dL AST 1383 H (14-36) U/L ALT 537 H (9-52) U/L Alkaline Phosphatase 127 H (38-126) U/L Total Protein 6.1 L (6.3-8.2) g/dL Albumin 3.4 L (3.5-5.0) g/dL Amylase 151 H (30-110) U/L Lipase 1245 H (23-300) U/L Urine Appearance (Clear) Ur Leukocyte Esterase (Negative) Urine RBC (0-5) /hpf Urine Bacteria (None) /hpf Urine Mucus (None) /hpf Assessment and Plan Assessment: 1. Pancytopenia, possibly secondary to alcohol intake 2. Acute alcohol intoxication with DTs 3. Acute pancreatitis possibly secondary to alcohol 4. Acute alcoholic hepatitis with elevated LFTs 5 vaginal bleeding, cervix mass, lesion, possible neoplasm per CT 6. Hypomagnesemia 7. Seizure disorder Plan: Continue current medication regime ,monitoring and symptomatic treatment. OB/ [employer] SUPERVISOR consulted regarding abnormal CT findings. Maintain CIWA protocol. Hepatitis screen pending. Diet advanced. Alcohol cessation readdressed. The impression and plan of care has been dictated as directed. : I performed a history and examination of this patient, discussed the same with the dictator. I agree with the dictator's note ,documented as a scribe. Any additional findings or plans will be noted.
--- NOTE | 2018-03-30 18:21 | P.OBCN ---
History of Present Illness Consult date: 03/30/18 Reason for consult: menorrhagia Chief complaint: Vaginal bleeding History of present illness: This patient is a pleasant 27-year-old 1 para 1 female who was transferred from [facility] yesterday for evaluation pancytopenia and vaginal bleeding. Please see dictated admission history and physical and medical consultation on this patient's admission, however her current medical history is significant for severe alcoholic hepatitis and seizure disorder. In regards to her gynecologic history, patient states that she has not seen a cleat blanker in approximately 5 years since the of her daughter. Patient states that her menstrual cycle is very irregular and she oftentimes skips for many months and then has prolonged bleeding for 1-2 weeks with clots. Patient has been sexually active however is not using anything for control. HCG here is negative. Patient states that she most recently started bleeding and went to the emergency department due to ill feeling and heavier bleeding. It appears her hemoglobin has stabilized at 9.4 and at this time she is not having any significant bleeding. Bleeding is dark red in nature. Imaging done at [facility] demonstrates a normal endometrial lining of 1.2 cm and a normal uterus. The cervix did appear to have multiple nabothian cysts. There was some concern on her CAT scan about a cystic mass in the lower uterine segment and cervix, however in comparison with her ultrasound this looked less suspicious and just consistent with nabothian cyst. Patient has not had a and examination or Pap smear in approximately 5 years. Review of Systems Genitourinary: Reports menorrhagia, Denies dysuria, Denies hematuria Menstruation: Reports as per HPI Past Medical History Past Medical History: Seizure Disorder Additional Past Medical History / Comment(s): Past obstetrical history significant for 1 section for failure to progress. History of Any Multi-Drug Resistant Organisms: None Reported Past Surgical History: Section, Orthopedic Surgery Additional Past Surgical History / Comment(s): 2 rt foot sx in past Past Anesthesia/Blood Transfusion Reactions: Motion Sickness Past Psychological History: No Psychological Hx Reported Smoking Status: Current some day smoker Past Alcohol Use History: Daily Past Drug Use History: None Reported - Past Family History Father Family Medical History: No Reported History Mother Family Medical History: No Reported History Medications and Allergies Home Medications Medication Instructions Recorded Confirmed Type levETIRAcetam [Keppra] 750 mg PO BID 03/29/18 03/29/18 History Allergies Allergy/AdvReac Type Severity Reaction Status Date / Time Penicillins Allergy Unknown Verified 03/29/18 16:15 Exam Vital Signs Temp Pulse Pulse Resp BP BP Pulse Ox 03/30/18 14:46 98.9 F 111 H 16 131/89 100 03/30/18 07:00 98.8 F 100 20 109/72 100 03/29/18 22:07 98.8 F 90 16 117/81 97 03/29/18 21:01 91 17 142/90 97 03/29/18 19:38 94 16 131/83 97 03/29/18 18:42 87 18 126/69 100 Intake and Output 03/30/18 03/30/18 03/30/18 06:59 14:59 22:59 Intake Total 0 600 Balance 0 600 Intake: Intake, IV Titration 600 Amount Sodium Chloride 0.9% 1, 600 000 ml @ 75 mls/hr IV . [id number] CE with Potassium Chloride 20 meq with Mvi, Adult No.4 with Vit K 10 ml with Thiamine 100 mg with Folic Acid 1 mg Rx#: [id number] Oral 0 Other: # Voids 0 Results Transvaginal ultrasound and CAT scan as above. Result Diagrams: 03/30/18 08:34 03/30/18 08:34 Abnormal Lab Results - Last 24 Hours (Table) 03/29/18 03/29/18 03/30/18 Range/Units 16:50 19:30 08:34 WBC 3.1 L (3.8-10.6) k/uL RBC 2.67 L (3.80-5.40) m/uL Hgb 9.4 L (11.4-16.0) gm/dL Hct 27.1 L (34.0-46.0) % MCV 101.8 H (80.0-100.0) fL MCH 35.3 H (25.0-35.0) pg RDW 15.9 H (11.5-15.5) % Plt Count 58 L (150-450) k/uL Lymphocytes # 0.3 L (1.0-4.8) k/uL Sodium (137-145) mmol/L BUN (7-17) mg/dL Magnesium 1.3 L (1.6-2.3) mg/dL AST (14-36) U/L ALT (9-52) U/L Alkaline Phosphatase (38-126) U/L Lactate Dehydrogenase (313-618) U/L Total Protein (6.3-8.2) g/dL Albumin (3.5-5.0) g/dL Amylase (30-110) U/L Lipase (23-300) U/L Ur Leukocyte Esterase Trace H (Negative) Urine Bacteria Rare H (None) /hpf Urine Mucus Rare H (None) /hpf 18 03/30/18 Range/Units 08:34 08:34 WBC (3.8-10.6) k/uL RBC (3.80-5.40) m/uL Hgb (11.4-16.0) gm/dL Hct (34.0-46.0) % MCV (80.0-100.0) fL MCH (25.0-35.0) pg RDW (11.5-15.5) % Plt Count (150-450) k/uL Lymphocytes # (1.0-4.8) k/uL Sodium 135 L (137-145) mmol/L BUN 3 L (7-17) mg/dL Magnesium (1.6-2.3) mg/dL AST 1383 H (14-36) U/L ALT 537 H (9-52) U/L Alkaline Phosphatase 127 H (38-126) U/L Lactate Dehydrogenase 2022 H (313-618) U/L Total Protein 6.1 L (6.3-8.2) g/dL Albumin 3.4 L (3.5-5.0) g/dL Amylase 151 H (30-110) U/L Lipase 1245 H (23-300) U/L Ur Leukocyte Esterase (Negative) Urine Bacteria (None) /hpf Urine Mucus (None) /hpf Assessment and Plan Assessment: This is a pleasant 27-year-old 1 para 1 female with what appears to be long-standing dysfunctional uterine bleeding. This most likely is anovulatory in nature per history. Fortunately at this age, it is unlikely to be neoplastic in etiology. Patient's prolonged bleeding is probably also secondary to her liver dysfunction and coagulation factors. Since she has significant liver enzyme elevations, she is not a hormone candidate to control her bleeding. Since the endometrium appears normal thickness, surgical intervention by D&C also will not provide any benefit and may actually increase her bleeding. Fortunately patient's bleeding does appear to be subsiding at this point and therefore I do not recommend any gynecologic intervention at this time. If she became significantly anemic then the best recourse would be to transfuse and replace. At this point this is not indicated. The ultrasound and CAT scan are suggestive of benign nabothian cysts of the cervix which are normal. That being said, it is important for this patient to have a pelvic exam and Pap smear to rule out cervical neoplasm. I have arranged for the patient to see me after discharge on April 09 at 9:45 AM in my office. She indicates to me that she is going into rehab for approximately 1 month starting later that day and therefore I we'll see her in the morning before she is admitted for rehab. I did not do an examination at this time because a Pap smear really can't be done with this bleeding. It should subside by the and at that time I can do an exam and cervical evaluation.. (1) Dysfunctional uterine bleeding Current Visit: Yes Status: Chronic Code(s): N93.8 - OTHER SPECIFIED ABNORMAL UTERINE AND VAGINAL BLEEDING SNOMED Code(s): 76737793
[2018-03-30 19:45] LABS: Iron Saturation 20.35 (12.00-45.00); Rheumatoid Factor 5 IU/mL (0-15)
[2018-03-30 20:09] LABS: Folate, Serum 15.3 ng/mL
--- NOTE | 2018-03-30 20:46 | P.CONS ---
History of Present Illness - Reason for Consult Consult date: 03/30/18 Pancytopenia Requesting physician: Nicci Graff - Chief Complaint Menorrhagia - History of Present Illness Janette is a pleasant 27 year old female who presented to [facility] after experiencing vaginal bleeding that was very heavy and contained multiple clots. She stated she has had irregular periods for some time now and assumed she was starting her monthly menses, although has never experienced such a severe menses. Apon initial evaluation in the Emergency department she was found to be pancytopenic and have liver transiminitis. Her WBC 1.9, Hgb = 10.7, Platelets 60. On Admission. She also admits to drinking one pint of vodka daily. She has been in and out of rehab in past. She states she has already signed to go back to rehab on April 08. Since admission her bleeding has improved. Review of Systems A full 14 point review of systems has been assessed and completed and all negative except HPI Past Medical History Past Medical History: Seizure Disorder Additional Past Medical History / Comment(s): Past obstetrical history significant for 1 section for failure to progress. History of Any Multi-Drug Resistant Organisms: None Reported Past Surgical History: Section, Orthopedic Surgery Additional Past Surgical History / Comment(s): 2 rt foot sx in past Past Anesthesia/Blood Transfusion Reactions: Motion Sickness Past Psychological History: No Psychological Hx Reported Smoking Status: Current some day smoker Past Alcohol Use History: Daily Past Drug Use History: None Reported - Past Family History Father Family Medical History: No Reported History Mother Family Medical History: No Reported History Medications and Allergies Home Medications Medication Instructions Recorded Confirmed Type levETIRAcetam [Keppra] 750 mg PO BID 03/29/18 03/29/18 History Allergies Allergy/AdvReac Type Severity Reaction Status Date / Time Penicillins Allergy Unknown Verified 03/29/18 16:15 Physical Exam Vitals: Vital Signs Temp Pulse Pulse Resp BP BP Pulse Ox 03/30/18 14:46 98.9 F 111 H 16 131/89 100 03/30/18 07:00 98.8 F 100 20 109/72 100 03/29/18 22:07 98.8 F 90 16 117/81 97 03/29/18 21:01 91 17 142/90 97 03/29/18 19:38 94 16 131/83 97 Intake and Output 03/30/18 03/30/18 03/30/18 06:59 14:59 22:59 Intake Total 0 600 Balance 0 600 Intake: Intake, IV Titration 600 Amount Sodium Chloride 0.9% 1, 600 000 ml @ 75 mls/hr IV . [id number] CE with Potassium Chloride 20 meq with Mvi, Adult No.4 with Vit K 10 ml with Thiamine 100 mg with Folic Acid 1 mg Rx#: [id number] Oral 0 Other: # Voids 0 - Constitutional General appearance: cooperative, no acute distress - EENT Eyes: EOMI, PERRLA, dentition normal ENT: NA/AT, normal oropharynx - Neck Supple, Trachea Midline Neck: normal ROM - Respiratory Respiratory: bilateral: CTA - Cardiovascular Rhythm: regular Heart sounds: normal: S1, S2 - Gastrointestinal General gastrointestinal: normal bowel sounds, soft - Integumentary Integumentary: pale - Neurologic Neurologic: CNII-XII intact - Musculoskeletal Musculoskeletal: gait normal, strength equal bilaterally - Psychiatric Psychiatric: A&O x's 3, appropriate affect, intact judgment & insight Results CBC & Chem 7: 03/30/18 08:34 03/30/18 08:34 Labs: Abnormal Lab Results - Last 24 Hours (Table) 03/29/18 03/29/18 03/30/18 Range/Units 16:50 19:30 08:34 WBC 3.1 L (3.8-10.6) k/uL RBC 2.67 L (3.80-5.40) m/uL Hgb 9.4 L (11.4-16.0) gm/dL Hct 27.1 L (34.0-46.0) % MCV 101.8 H (80.0-100.0) fL MCH 35.3 H (25.0-35.0) pg RDW 15.9 H (11.5-15.5) % Plt Count 58 L (150-450) k/uL Lymphocytes # 0.3 L (1.0-4.8) k/uL Sodium (137-145) mmol/L BUN (7-17) mg/dL Magnesium 1.3 L (1.6-2.3) mg/dL AST (14-36) U/L ALT (9-52) U/L Alkaline Phosphatase (38-126) U/L Lactate Dehydrogenase (313-618) U/L Total Protein (6.3-8.2) g/dL Albumin (3.5-5.0) g/dL Amylase (30-110) U/L Lipase (23-300) U/L Ur Leukocyte Esterase Trace H (Negative) Urine Bacteria Rare H (None) /hpf Urine Mucus Rare H (None) /hpf 03/30/18 03/30/18 Range/Units 08:34 08:34 WBC (3.8-10.6) k/uL RBC (3.80-5.40) m/uL Hgb (11.4-16.0) gm/dL Hct (34.0-46.0) % MCV (80.0-100.0) fL MCH (25.0-35.0) pg RDW (11.5-15.5) % Plt Count (150-450) k/uL Lymphocytes # (1.0-4.8) k/uL Sodium 135 L (137-145) mmol/L BUN 3 L (7-17) mg/dL Magnesium (1.6-2.3) mg/dL AST 1383 H (14-36) U/L ALT 537 H (9-52) U/L Alkaline Phosphatase 127 H (38-126) U/L Lactate Dehydrogenase 2022 H (313-618) U/L Total Protein 6.1 L (6.3-8.2) g/dL Albumin 3.4 L (3.5-5.0) g/dL Amylase 151 H (30-110) U/L Lipase 1245 H (23-300) U/L Ur Leukocyte Esterase (Negative) Urine Bacteria (None) /hpf Urine Mucus (None) /hpf Assessment and Plan Plan: Assessment and Recommendations: 1. Pancytopenia: - Likely secondary to underlying bone marrow suppression secondary to alcohol induced liver disease - Other etiology and full work-up in progress, will await results. - Transfusion support if bleeding and platlets less than 50K, Hemoglobin less than 7. - Await Vitamin B12, FOlate, Iron Studies, Peripheral smear, pancytopenia work- up. 2. Menorrhagia - Improved since admission - Abdominal CT, Ultrasound 3. 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 ETOH Abuse: - COunseled on Cessation THank you for allowing us to participate in the care of this patient, we will follow along with you
[2018-03-30 22:52] VITALS: RESP 17
[2018-03-31 01:58] LABS: Hepatitis A Antibody IgM Non-Reactive (Non-Reactive); Hepatitis B Core IgM Non-Reactive (Non-Reactive)
[2018-03-31 06:00] VITALS: BP 110/74; PULSE 84; TEMP 96.7
[2018-03-31] MEDS: SODIUM CHLORIDE 0.9% 1,000 ML with POTASSIUM CHLORIDE 20 MEQ, MVI, ADULT NO.4 WITH VIT ... IV SCH ×5 (06:40)
[2018-03-31 08:34] LABS: Anisocytosis Slight; Basophils % (A) 0 %; Eosinophils # (A) 0.1 k/uL (0-0.7); Eosinophils % (A) 6 %; HCT 26.3 % (34.0-46.0); HGB 9.3 gm/dL (11.4-16.0); Lymphocytes # (A) 0.4 k/uL (1.0-4.8); Lymphocytes % (A) 19 %; MCH 35.9 pg (25.0-35.0); MCHC 35.3 g/dL (31.0-37.0); MCV 101.9 fL (80.0-100.0); Macrocytosis Slight; Mean Platelet Volume 8.9; Monocytes # (A) 0.2 k/uL (0-1.0); Monocytes % (A) 8 %; Neutrophils # (A) 1.4 k/uL (1.3-7.7); Neutrophils % (A) 65 %; RBC 2.58 m/uL (3.80-5.40); WBC 2.1 k/uL (3.8-10.6)
[2018-03-31 08:35] LABS: ALT 347 U/L (9-52); AST 438 U/L (14-36); Albumin 3.3 g/dL (3.5-5.0); Alkaline Phosphatase 107 U/L (38-126); Amylase 137 U/L (30-110); Anion Gap 7 mmol/L; Blood Urea Nitrogen 3 mg/dL (7-17); Calcium 8.4 mg/dL (8.4-10.2); Carbon Dioxide 25 mmol/L (22-30); Chloride 104 mmol/L (98-107); Glucose 82 mg/dL (74-99); Lipase 748 U/L (23-300); Platelet Count 62 k/uL (150-450); Potassium 3.8 mmol/L (3.5-5.1); Sodium 136 mmol/L (137-145); Total Protein 6.2 g/dL (6.3-8.2)
[2018-03-31 08:36] LABS: INR 1.1 (<1.2); Prothrombin Time 10.5 sec (9.0-12.0)
[2018-03-31] MEDS: THIAMINE 100 MG TAB PO SCH (11:38)
--- NOTE | 2018-03-31 11:47 | PN ---
PROGRESS NOTE DATE OF SERVICE: March 31, 2018. CHIEF COMPLAINT: Vaginal bleeding. Janette is seen today as a followup. She feels better. She denies any abdominal pain, nausea, or vomiting. She continues to have some vaginal bleeding, but it is much better. CURRENT MEDICATION: Reviewed in her electronic medical record. PHYSICAL EXAMINATION: She is alert, oriented x3. No distress. Vital signs temperature 97.6. Afebrile. Pulse 84, regular, respirations 16, blood pressure 110/74. HEENT: Normocephalic, atraumatic. NECK: Supple. Chest equal expansion bilaterally. LUNGS: Clear. ABDOMEN: Soft. There is no tenderness or ascites or obvious organomegaly. Extremities revealed no edema. LABORATORY DATA: WBC of 2.1, hemoglobin 9.3, hematocrit is 26.3. MCV is 101.9, platelets are 62. Sodium 136, potassium 3.8, chloride 104, CO2 is 25, BUN is 3, creatinine 0.6. AST 438, ALT is 347, alkaline phosphatase is 107. IMPRESSION: Pancytopenia. This is likely related to significant alcohol consumption and in part related to acute liver injury from alcohol abuse as well. Also, she may have a component of iron deficiency anemia from heavy menstrual bleeding. RECOMMENDATION: 1. Her blood count appears to be slowly improving for now. 2. This should be repeated in the outpatient setting. If there is no improvement, then further workup would be considered. 3. Although her ferritin is within normal range, however, this is considered to be low in view of acute alcoholic hepatitis because this is an acute phase reactant. 4. Her current iron side studies really do not reflect her iron stores. This should be repeated once her liver enzymes improve. 5. She was highly advised to discontinue alcohol. MMODL / IJN: [id number] /
[2018-03-31 13:23] LABS: T4/T8 Ratio (CD4:CD8) 1.1 (1.0-3.7)
--- NOTE | 2018-03-31 14:36 | P.PN ---
Subjective Progress Note Date: 03/31/18 The patient is a 27-year-old female with history of daily alcohol consumption of several years duration was admitted to the hospital with possible hematuria/ vaginal bleeding. Colonoscopy to see her because of elevated liver and pancreas enzymes. The patient was having low abdominal and pelvic discomfort. No prior history of pancreatitis. She had significant elevation in her transaminases as well as alkaline phosphatase and lipase. CT of the abdomen showed diffuse fatty infiltration of the liver without any gallbladder inflammatory changes. There was no definite inflammatory changes in the pancreas. The patient was evaluated by hematology because of pancytopenia and by the [facility] service because of her vaginal bleeding. Today, the patient reports improvement in her abdominal pain. Her AST is down from 1383 to 438, ALT 347 and albumin 3.3. Amylase 137 lipase down to 748. Her hepatitis serology was negative. White cell count remained low at 2.1 platelets low at 62. Objective - Vital Signs Vital signs: Vital Signs Temp 96.7 F L 03/31/18 05:59 Pulse 84 03/31/18 05:59 Resp 17 03/31/18 05:59 BP 110/74 03/31/18 05:59 Pulse Ox 99 03/31/18 05:59 Intake & Output 03/30/18 03/31/18 03/31/18 18:59 06:59 18:59 Intake Total 600 Balance 600 Intake: Intake, IV Titration 600 Amount Sodium Chloride 0.9% 1, 600 000 ml @ 75 mls/hr IV . [id number] CE with Potassium Chloride 20 meq with Mvi, Adult No.4 with Vit K 10 ml with Thiamine 100 mg with Folic Acid 1 mg Rx#: [id number] Other: Voiding Method Toilet # Voids 1 - Exam General: Appears stated age, very pleasant, in no acute distress Neck: Normocephalic and atraumatic, conjunctivae pink and sclerae not icteric, mucous membranes moist and pink. No masses in the neck or tracheal shifts Lungs: Clear to auscultation with no dullness to percussion Heart: Regular, no abnormal sounds, gallops or friction rubs Abdomen: Soft, no tenderness, bowel sounds present. No masses or organomegalies Extremities: No clubbing, cyanosis or edema Neurologic: Alert and oriented 3, cranial nerves grossly intact, no gross sensory or motor abnormalities - Labs CBC & Chem 7: 03/31/18 08:02 03/31/18 08:02 Labs: Abnormal Lab Results - Last 24 Hours (Table) 03/30/18 03/30/18 03/30/18 Range/Units 08:34 08:34 08:34 WBC 3.1 L (3.8-10.6) k/uL RBC 2.67 L (3.80-5.40) m/uL Hgb 9.4 L (11.4-16.0) gm/dL Hct 27.1 L (34.0-46.0) % MCV 101.8 H (80.0-100.0) fL MCH 35.3 H (25.0-35.0) pg RDW 15.9 H (11.5-15.5) % Plt Count 58 L (150-450) k/uL Lymphocytes # 0.3 L (1.0-4.8) k/uL Sodium 135 L (137-145) mmol/L BUN 3 L (7-17) mg/dL Iron (50-170) ug/dL TIBC (228-460) ug/dL AST 1383 H (14-36) U/L ALT 537 H (9-52) U/L Alkaline Phosphatase 127 H (38-126) U/L Lactate Dehydrogenase 2022 H (313-618) U/L Total Protein 6.1 L (6.3-8.2) g/dL Albumin 3.4 L (3.5-5.0) g/dL Amylase 151 H (30-110) U/L Lipase 1245 H (23-300) U/L Vitamin B12 (200.0-944.0) pg/mL 03/30/18 03/31/18 03/31/18 Range/Units 08:34 08:02 08:02 WBC 2.1 L (3.8-10.6) k/uL RBC 2.58 L (3.80-5.40) m/uL Hgb 9.3 L (11.4-16.0) gm/dL Hct 26.3 L (34.0-46.0) % MCV 101.9 H (80.0-100.0) fL MCH 35.9 H (25.0-35.0) pg RDW 16.0 H (11.5-15.5) % Plt Count 62 L (150-450) k/uL Lymphocytes # 0.4 L (1.0-4.8) k/uL Sodium 136 L (137-145) mmol/L BUN 3 L (7-17) mg/dL Iron 46 L (50-170) ug/dL TIBC 226 L (228-460) ug/dL AST 438 H (14-36) U/L ALT 347 H (9-52) U/L Alkaline Phosphatase (38-126) U/L Lactate Dehydrogenase (313-618) U/L Total Protein 6.2 L (6.3-8.2) g/dL Albumin 3.3 L (3.5-5.0) g/dL Amylase 137 H (30-110) U/L Lipase 748 H (23-300) U/L Vitamin B12 1322.0 H (200.0-944.0) pg/mL Assessment and Plan Assessment: 27-year-old female with history of excessive alcohol use and biochemical and hematologic findings consistent with alcohol effects on bone marrow and liver. The patient seems to be doing clinically better and articulates interest and commitment to abstain from drinking alcohol and start alcohol rehab. Plan: I agree with your current management. Will advance to low-fat diet. Further plans based on her course.
--- NOTE | 2018-04-01 05:58 | DS ---
DISCHARGE SUMMARY DATE OF SERVICE: 03/31/2018. FINAL DIAGNOSES: 1. Pancytopenia possibly secondary to alcohol intake. 2. Acute alcohol intoxication and delirium tremens. 3. Acute pancreatitis possibly secondary to alcohol. 4. Acute alcoholic hepatitis, elevated LFTs. 5. Vaginal bleeding, rule out cervical mass. For outpatient followup per CLAIMS TECHNICIAN. 6. Hypomagnesia. 7. History of seizure disorder. DISCHARGE DISPOSITION: The patient will be discharged in stable condition with guarded prognosis. The patient is extremely keen on going home. HISTORY OF PRESENT ILLNESS: This 27-year-old woman with past medical history of multiple medical problems, was admitted with pancytopenia and vaginal bleeding. Patient treated. Monitored closely. The white count is stable at 2.2, hemoglobin 9.2, platelets 62. CLAIMS TECHNICIAN recommended outpatient followup and liver enzymes improved significantly. Patient is extremely keen on going home at this time. Alcohol cessation has been advised. Patient is also seen by multiple consultants including Gastroenterology during the hospitalization. On exam, vitals are stable. Cardiovascular: S1, S2. Abdomen: Soft. Nervous System: No focal deficits. DISCHARGE ADVICE: 1. Diet is cardiac. 2. Activity limited until followup. 3. No ETOH. 4. Follow up with Dr. Salazar in 2-3 days. 5. Follow with CLAIMS TECHNICIAN and Gastroenterology as mentioned earlier. 6. AA meetings. MEDICATIONS: 1. Keppra 750 p.o. b.i.d. 2. Tylenol 500 mg q.6h p.r.n. 3. Folic acid 1 mg. 4. Multivitamins. 5. Thiamin 100 mg p.o. daily. Once again, the patient is discharged in stable condition with guarded prognosis. MMODL / IJN: [id number] /
[2018-04-02 15:26] LABS: Albumin 3.68 g/dL (3.80-4.90); Gamma Globulin 0.87 g/dL (0.70-1.50); Protein, Total 5.9 g/dL (6.2-8.2)
== END 2018-03-31 13:54 | disposition home or self-care (01) | DRG 808 ==
LOC: EC 16:01 → 4MS4W 20:23
PROVIDERS: ADMIT Internal Medicine; ATTEND Internal Medicine
DX: D61.818 Other pancytopenia (principal); K85.20 Alcohol induced acute pancreatitis without necrosis or infection; F10.231 Alcohol dependence with withdrawal delirium; F10.221 Alcohol dependence with intoxication delirium; E83.42 Hypomagnesemia; F17.200 Nicotine dependence, unspecified, uncomplicated; G40.909 Epilepsy, unspecified, not intractable, without status epilepticus; K21.9 Gastro-esophageal reflux disease without esophagitis; K70.10 Alcoholic hepatitis without ascites; K76.0 Fatty (change of) liver, not elsewhere classified; N83.299 Other ovarian cyst, unspecified side; N85.4 Malposition of uterus; N88.8 Other specified noninflammatory disorders of cervix uteri; N93.8 Other specified abnormal uterine and vaginal bleeding; R79.1 Abnormal coagulation profile; Y90.8 Blood alcohol level of 240 mg/100 ml or more; Z79.899 Other long term (current) drug therapy; Z98.891 History of uterine scar from previous surgery; Z88.0 Allergy status to penicillin
CPT/HCPCS: 36415; 51701; 74176; 76830; 80053; 80074; 81001; 81025; 82105; 82150; 82607; 82728; 82746; 83010; 83540; 83550; 83615; 83690; 83735; 83883; 84165; 84702; 85025; 85610; 85730; 86038; 86334; 86355; 86357; 86359; 86360; 86431; 86850; 86900; 86901; 93975; 96361; 96374; 99285

== ENCOUNTER 2018-05-24 05:33 | Inpatient (IN) | payer OTHER ==
[2018-05-24] MEDS ORDERED: SODIUM CHLORIDE 0.9% 1,000 ML IV ONE ×2 (06:02→09:16)
[2018-05-24] MEDS ORDERED: LORazepam 2 MG/ML INJ IV STA (06:12)
--- NOTE | 2018-05-24 06:13 | ED ---
Altered Mental Status HPI - General Source: EMS Mode of arrival: EMS Limitations: no limitations - History of Present Illness MD Complaint: confusion, other (Tachycardia) -: hour(s) Severity: moderate Context: alcohol abuse Associated Symptoms: denies other symptoms <Nahum Martell - Last Filed: 05/24/18 07:34> <Guille Hannon - Last Filed: 05/24/18 09:34> - General Chief Complaint: Altered Mental Status Stated Complaint: Rapid heart rate Time Seen by Provider: 05/24/18 05:36 - History of Present Illness Initial Comments: This patient is 27-year-old woman who comes here from [facility]. The patient was somewhat confused this morning and also had been tachycardic. They stated that at the facility her heart rate was 150. The patient states that she had been drinking post to a fifth of vodka per day. She had stopped completely approximately 2 days ago now. She states that they are giving her Ativan at the other facility. She states she feels less tremulous with the Ativan. Patient denies headache, chest pain, dyspnea, abdominal pain or vomiting. (Nahum Martell) - Related Data Home Medications Medication Instructions Recorded Confirmed levETIRAcetam [Keppra] 750 mg PO BID 03/29/18 05/24/18 Allergies Allergy/AdvReac Type Severity Reaction Status Date / Time Penicillins Allergy Unknown Verified 05/24/18 08:01 Review of Systems ROS Other: All systems not noted in ROS Statement are negative. Constitutional: Denies: fever, chills, weakness Eyes: Denies: vision change Respiratory: Denies: cough, dyspnea Cardiovascular: Denies: chest pain, palpitations, edema, syncope Gastrointestinal: Denies: abdominal pain, nausea, vomiting, diarrhea, melena, hematochezia Genitourinary: Denies: dysuria Musculoskeletal: Denies: back pain Skin: Denies: rash Neurological: Denies: headache, weakness, numbness Psychiatric: Denies: anxiety <Nahum Martell - Last Filed: 05/24/18 07:34> ROS Other: All systems not noted in ROS Statement are negative. <Guille Hannon - Last Filed: 05/24/18 09:34> ROS Statement: Those systems with pertinent positive or pertinent negative responses have been documented in the HPI. Past Medical History Past Medical History: Seizure Disorder Additional Past Medical History / Comment(s): Past obstetrical history significant for 1 section for failure to progress. History of Any Multi-Drug Resistant Organisms: None Reported Past Surgical History: Section, Orthopedic Surgery Additional Past Surgical History / Comment(s): 2 rt foot sx in past Past Anesthesia/Blood Transfusion Reactions: Motion Sickness Past Psychological History: No Psychological Hx Reported Smoking Status: Former smoker Past Alcohol Use History: Heavy Past Drug Use History: None Reported - Past Family History Father Family Medical History: No Reported History Mother Family Medical History: No Reported History <JabsirNahum - Last Filed: 05/24/18 07:34> General Exam Limitations: no limitations General appearance: alert, anxious (Patient does appear very mildly anxious), other (There is a mild tremor) Head exam: Present: atraumatic, normocephalic Eye exam: Present: normal appearance. Absent: scleral icterus, conjunctival injection ENT exam: Present: normal oropharynx Neck exam: Present: normal inspection, full ROM Respiratory exam: Present: normal lung sounds bilaterally. Absent: respiratory distress, wheezes, rales, rhonchi, stridor Cardiovascular Exam: Present: normal rhythm, tachycardia, normal heart sounds. Absent: systolic murmur, diastolic murmur, rubs, gallop GI/Abdominal exam: Present: soft. Absent: distended, tenderness, guarding, rebound, rigid, mass, pulsatile mass Extremities exam: Present: normal inspection, normal capillary refill. Absent: pedal edema, calf tenderness Neurological exam: Present: alert, oriented X3, CN II-XII intact. Absent: motor sensory deficit Psychiatric exam: Present: anxious. Absent: homicidal ideation, suicidal ideation Skin exam: Present: warm, dry, intact, normal color. Absent: rash <JasbirNahum - Last Filed: 05/24/18 07:34> Vital Signs 05/24/18 05/24/18 05:35 08:48 Temperature 100.3 F H Pulse Rate 121 H 120 H Respiratory 20 16 Rate Blood Pressure 123/79 131/73 O2 Sat by Pulse 99 99 Oximetry Medical Decision Making - Lab Data Result diagrams: 05/24/18 05:35 05/24/18 05:35 - EKG Data -: EKG Interpreted by Me EKG shows normal: sinus rhythm, axis (Normal), intervals (Normal), QRS complexes (Normal) Rate: tachycardia (Rate 118 bpm) Interpretation: nonspecific ST-T wave changes <Nahum Martell - Last Filed: 05/24/18 07:34> - Lab Data Result diagrams: 05/24/18 05:35 05/24/18 05:35 <Guille Hannon - Last Filed: 05/24/18 09:34> - Medical Decision Making Patient evaluated by previous physician, she was given Ativan and symptoms did improve. Workup in the emergency department did show some significant abnormalities however these were chronic in nature including pancytopenia and elevated liver enzymes, these enzymes are down trending. Patient was discharged however at the time of discharge patient remains somewhat tachycardic , she was having hallucinations. Given the patient is proximally 48 hours since her last drink, she will be admitted to the hospital for alcohol withdrawal and concern for delirium tremens. Case discussed with admitting physician Dr. Muñiz, will accept admission. She is placed on Valium scheduled dosing as well as Ativan as needed based on [facility] protocol. She is also started on metoprolol. (Guille Hannon) - Lab Data Lab Results 05/24/18 05/24/18 05/24/18 Range/Units 05:35 05:35 05:35 WBC 3.0 L (3.8-10.6) k/uL RBC 2.92 L (3.80-5.40) m/uL Hgb 8.6 L (11.4-16.0) gm/dL Hct 26.7 L (34.0-46.0) % MCV 91.4 D (80.0-100.0) fL MCH 29.4 (25.0-35.0) pg MCHC 32.2 (31.0-37.0) g/dL RDW 14.9 (11.5-15.5) % Plt Count 69 L (150-450) k/uL Neutrophils % 71 % Lymphocytes % 13 % Monocytes % 11 % Eosinophils % 2 % Basophils % 1 % Neutrophils # 2.1 (1.3-7.7) k/uL Lymphocytes # 0.4 L (1.0-4.8) k/uL Monocytes # 0.3 (0-1.0) k/uL Eosinophils # 0.1 (0-0.7) k/uL Basophils # 0.0 (0-0.2) k/uL Hypochromasia Slight Poikilocytosis Slight PT (9.0-12.0) sec INR (<1.2) APTT (22.0-30.0) sec Sodium 134 L (137-145) mmol/L Potassium 3.5 (3.5-5.1) mmol/L Chloride 92 L (98-107) mmol/L Carbon Dioxide 23 (22-30) mmol/L Anion Gap 19 mmol/L BUN 11 (7-17) mg/dL Creatinine 0.70 (0.52-1.04) mg/dL Est GFR (CKD-EPI)AfAm >90 (>60 ml/min/1.73 sqM) Est GFR (CKD-EPI)NonAf >90 (>60 ml/min/1.73 sqM) Glucose 106 H (74-99) mg/dL Plasma Lactic Acid John (0.7-2.0) mmol/L Calcium 9.7 (8.4-10.2) mg/dL Total Bilirubin 0.8 (0.2-1.3) mg/dL AST 237 H (14-36) U/L ALT 144 H (9-52) U/L Alkaline Phosphatase 128 H (38-126) U/L Total Creatine Kinase 924 H (30-135) U/L CK-MB (CK-2) 3.4 H (0.0-2.4) ng/mL CK-MB (CK-2) Rel Index 0.4 Troponin I <0.012 (0.000-0.034) ng/mL Total Protein 7.8 (6.3-8.2) g/dL Albumin 4.6 (3.5-5.0) g/dL Urine Color Urine Appearance (Clear) Urine pH (5.0-8.0) Ur Specific [place] (1.001-1.035) Urine Protein (Negative) Urine Glucose (UA) (Negative) Urine Ketones (Negative) Urine Blood (Negative) Urine Nitrite (Negative) Urine Bilirubin (Negative) Urine Urobilinogen (<2.0) mg/dL Ur Leukocyte Esterase (Negative) Urine RBC (0-5) /hpf Urine WBC (0-5) /hpf Urine WBC Clumps (None) /hpf Ur Squamous Epith Cells (0-4) /hpf Urine Mucus (None) /hpf Urine Opiates Screen (NotDetected) Ur Oxycodone Screen (NotDetected) Urine Methadone Screen (NotDetected) Ur Propoxyphene Screen (NotDetected) Ur Barbiturates Screen (NotDetected) U Tricyclic Antidepress (NotDetected) Ur Phencyclidine Scrn (NotDetected) Ur Amphetamines Screen (NotDetected) U Methamphetamines Scrn (NotDetected) U Benzodiazepines Scrn (NotDetected) Urine Cocaine Screen (NotDetected) U Marijuana (THC) Screen (NotDetected) 05/24/18 05/24/18 05/24/18 Range/Units 05:35 05:35 05:35 WBC (3.8-10.6) k/uL RBC (3.80-5.40) m/uL Hgb (11.4-16.0) gm/dL Hct (34.0-46.0) % MCV (80.0-100.0) fL MCH (25.0-35.0) pg MCHC (31.0-37.0) g/dL RDW (11.5-15.5) % Plt Count (150-450) k/uL Neutrophils % % Lymphocytes % % Monocytes % % Eosinophils % % Basophils % % Neutrophils # (1.3-7.7) k/uL Lymphocytes # (1.0-4.8) k/uL Monocytes # (0-1.0) k/uL Eosinophils # (0-0.7) k/uL Basophils # (0-0.2) k/uL Hypochromasia Poikilocytosis PT 10.4 (9.0-12.0) sec INR 1.1 (<1.2) APTT 22.7 (22.0-30.0) sec Sodium (137-145) mmol/L Potassium (3.5-5.1) mmol/L Chloride (98-107) mmol/L Carbon Dioxide (22-30) mmol/L Anion Gap mmol/L BUN (7-17) mg/dL Creatinine (0.52-1.04) mg/dL Est GFR (CKD-EPI)AfAm (>60 ml/min/1.73 sqM) Est GFR (CKD-EPI)NonAf (>60 ml/min/1.73 sqM) Glucose (74-99) mg/dL Plasma Lactic Acid John 1.0 (0.7-2.0) mmol/L Calcium (8.4-10.2) mg/dL Total Bilirubin (0.2-1.3) mg/dL AST (14-36) U/L ALT (9-52) U/L Alkaline Phosphatase (38-126) U/L Total Creatine Kinase (30-135) U/L CK-MB (CK-2) (0.0-2.4) ng/mL CK-MB (CK-2) Rel Index Troponin I (0.000-0.034) ng/mL Total Protein (6.3-8.2) g/dL Albumin (3.5-5.0) g/dL Urine Color [place] Urine Appearance Cloudy H (Clear) Urine pH 6.0 (5.0-8.0) Ur Specific [place] 1.031 (1.001-1.035) Urine Protein 3+ H (Negative) Urine Glucose (UA) Negative (Negative) Urine Ketones 3+ H (Negative) Urine Blood Moderate H (Negative) Urine Nitrite Negative (Negative) Urine Bilirubin 1+ H (Negative) Urine Urobilinogen 4.0 (<2.0) mg/dL Ur Leukocyte Esterase Moderate H (Negative) Urine RBC 9 H (0-5) /hpf Urine WBC 15 H (0-5) /hpf Urine WBC Clumps Occasional H (None) /hpf Ur Squamous Epith Cells 25 H (0-4) /hpf Urine Mucus Moderate H (None) /hpf Urine Opiates Screen Not Detected (NotDetected) Ur Oxycodone Screen Not Detected (NotDetected) Urine Methadone Screen Not Detected (NotDetected) Ur Propoxyphene Screen Not Detected (NotDetected) Ur Barbiturates Screen Not Detected (NotDetected) U Tricyclic Antidepress Not Detected (NotDetected) Ur Phencyclidine Scrn Not Detected (NotDetected) Ur Amphetamines Screen Not Detected (NotDetected) U Methamphetamines Scrn Not Detected (NotDetected) U Benzodiazepines Scrn Detected H (NotDetected) Urine Cocaine Screen Not Detected (NotDetected) U Marijuana (THC) Screen Not Detected (NotDetected) Disposition Is patient prescribed a controlled substance at d/c from ED?: No <Nahum Martell - Last Filed: 05/24/18 07:34> Time of Disposition: 09:34 <Guille Hannon - Last Filed: 05/24/18 09:34> Clinical Impression: Alcohol withdrawal, Pancytopenia Disposition: ADMITTED IP TO THIS HOSP Condition: Stable Instructions: Alcohol Withdrawal (ED) Referrals: Robert Salazar MD [Primary Care Provider] - 1-2 days
[2018-05-24 06:49] LABS: Appearance,Urine Cloudy (Clear); Bilirubin,Urine 1+ (Negative); Blood,Urine Moderate (Negative); Color,Urine Orange; Glucose,Urine (UA) Negative (Negative); Ketones,Urine 3+ (Negative); Leukocyte Esterase,Urine Moderate (Negative); Mucus,Urine Moderate /hpf; Nitrite,Urine Negative (Negative); Protein,Urine 3+ (Negative); RBC,Urine 9 /hpf (0-5); Specific Gravity,Urine 1.031 (1.001-1.035); Squamous Epithelial Cell,Urine 25 /hpf (0-4); WBC,Urine 15 /hpf (0-5)
[2018-05-24 06:53] LABS: ALT 144 U/L (9-52); AST 237 U/L (14-36); Albumin 4.6 g/dL (3.5-5.0); Alkaline Phosphatase 128 U/L (38-126); Anion Gap 19 mmol/L; Blood Urea Nitrogen 11 mg/dL (7-17); Calcium 9.7 mg/dL (8.4-10.2); Carbon Dioxide 23 mmol/L (22-30); Chloride 92 mmol/L (98-107); Glucose 106 mg/dL (74-99); Potassium 3.5 mmol/L (3.5-5.1); Sodium 134 mmol/L (137-145); Total Bilirubin 0.8 mg/dL (0.2-1.3); Total Protein 7.8 g/dL (6.3-8.2)
[2018-05-24 06:55] LABS: Basophils % (A) 1 %; Eosinophils # (A) 0.1 k/uL (0-0.7); Eosinophils % (A) 2 %; HCT 26.7 % (34.0-46.0); HGB 8.6 gm/dL (11.4-16.0); Hypochromasia Slight; Lymphocytes # (A) 0.4 k/uL (1.0-4.8); Lymphocytes % (A) 13 %; MCH 29.4 pg (25.0-35.0); MCHC 32.2 g/dL (31.0-37.0); Mean Platelet Volume 10.8; Monocytes # (A) 0.3 k/uL (0-1.0); Monocytes % (A) 11 %; Neutrophils # (A) 2.1 k/uL (1.3-7.7); Neutrophils % (A) 71 %; Poikilocytosis Slight; RBC 2.92 m/uL (3.80-5.40); RDW 14.9 % (11.5-15.5)
[2018-05-24 06:57] LABS: Amphetamine Screen,Urine Not Detected (NotDetected); Barbiturate Screen,Urine Not Detected (NotDetected); Benzodiazepines Screen,Urine Detected (NotDetected); Cocaine Screen,Urine Not Detected (NotDetected); INR 1.1 (<1.2); Methadone Screen, Urine Not Detected (NotDetected); Opiate Screen,Urine Not Detected (NotDetected); Oxycodone Screen, Urine Not Detected (NotDetected); Partial Thromboplastin Time 22.7 sec (22.0-30.0); Phencyclidine Screen,Urine Not Detected (NotDetected); Prothrombin Time 10.4 sec (9.0-12.0); Tricyclic Antidepressant,Urine Not Detected (NotDetected); Urn Cannabinoid Scrn Not Detected (NotDetected)
[2018-05-24 07:01] LABS: MCV 91.4 fL (80.0-100.0)
[2018-05-24 07:06] LABS: Creatine Kinase 924 U/L (30-135)
[2018-05-24 07:18] LABS: Creatine Kinase MB 3.4 ng/mL (0.0-2.4); Troponin I <0.012 ng/mL (0.000-0.034)
--- NOTE | 2018-05-24 07:53 | XR ---
EXAMINATION TYPE: XR chest 2V DATE OF EXAM: 05/24/2018 COMPARISON: NONE HISTORY: Altered mental status and rapid heart rate. TECHNIQUE: Frontal and lateral views of the chest are obtained. FINDINGS: Overlying EKG leads are seen. There is no focal air space opacity, pleural effusion, or pne umothorax seen. The cardiac silhouette size is within normal limits. The osseous structures are in tact. IMPRESSION: No acute cardiopulmonary process.
--- NOTE | 2018-05-24 07:54 | CT ---
EXAMINATION TYPE: CT brain wo con DATE OF EXAM: 05/24/2018 COMPARISON: None. HISTORY: rapid heart rate, AMS CT DLP: 953.60 mGycm. Automated Exposure Control for Dose Reduction was Utilized. TECHNIQUE: CT scan of the head is performed without contrast. FINDINGS: There is no acute intracranial hemorrhage, mass effect, or midline shift identified. The ventricles and sulci are within normal limits in size. Borden-white matter differentiation is maintai johan. The globes are intact and the visualized sinuses are clear. IMPRESSION: No acute intracranial hemorrhage, mass effect, or midline shift is seen.
[2018-05-24 08:34] LABS: Platelet Count 69 k/uL (150-450)
[2018-05-24] MEDS ORDERED: THIAMINE 100 MG/ML 2 ML VIAL IM STA (09:16)
[2018-05-24] MEDS ORDERED: LORazepam 2 MG/ML INJ IV PRN (09:16)
[2018-05-24] MEDS ORDERED: NALOXONE 0.4 MG/ML 1 ML VIAL IV PRN (09:29)
[2018-05-24] MEDS: LORazepam 2 MG/ML INJ IV PRN ×20 (09:40→19:55)
[2018-05-24] MEDS ORDERED: HALOPERIDOL LACTATE 5 MG/ML 1 ML VIAL IM PRN (12:45)
[2018-05-24] MEDS ORDERED: HALOPERIDOL LACTATE 5 MG/ML 1 ML VIAL IM STA (12:48)
[2018-05-24] MEDS: SODIUM CHLORIDE 0.9% 1,000 ML IV SCH (12:53)
[2018-05-24 14:13] LABS: Glucose,Whole Blood 127 mg/dL (75-99)
--- NOTE | 2018-05-24 15:22 | P.CNPUL ---
History of Present Illness Consult date: 05/24/18 Requesting physician: Gonzales Muñiz Chief complaint: Altered mental status History of present illness: This is a 27-year-old female patient who follows with Dr. Salazar as her primary care physician. She has a history of alcoholism and alcoholic seizures from withdrawal in the past. She was on Keppra in the outpatient setting. She was recently admitted to [facility] and her last drink was approximately 48 hours ago. While there she was having altered mental status and hallucinations and EMS was called and she was transported here for the same. She was treated with Ativan and Haldol thus far. Mr. hernández was required to be called on her while on the selective care unit. She was subsequently transferred here to the intensive care unit and we are consulted for the same. Presently she is awake, agitated, hallucinating. Disoriented to place and time. Somewhat combative and trying to climb out of bed. The CIWA protocol is in place. She has received another 2 mg of Ativan. She has had a T -max of 100.3. She is tachycardic. Urinalysis cloudy and positive for moderate amount of leukocytes, WBCs, ketones, protein. Urine drug screen positive for benzodiazepines. AST 237, ALT 144, alk phos 128, total creatinine kinase 924. White count 3.0. Hemoglobin 8.6. Platelet count 69,000. Computed tomography scan of the brain revealed no acute intracranial hemorrhage, mass effect or midline shift. Chest x-ray reveals no acute pulmonary process. Review of Systems ROS unobtainable: due to mental status Past Medical History Past Medical History: Seizure Disorder Additional Past Medical History / Comment(s): Past obstetrical history significant for 1 section for failure to progress. History of Any Multi-Drug Resistant Organisms: None Reported Past Surgical History: Section, Orthopedic Surgery Additional Past Surgical History / Comment(s): 2 rt foot sx in past Past Anesthesia/Blood Transfusion Reactions: Motion Sickness Past Psychological History: No Psychological Hx Reported Smoking Status: Former smoker Past Alcohol Use History: Heavy Past Drug Use History: None Reported - Past Family History Father Family Medical History: No Reported History Mother Family Medical History: No Reported History Medications and Allergies Home Medications Medication Instructions Recorded Confirmed Type levETIRAcetam [Keppra] 750 mg PO BID 03/29/18 05/24/18 History Allergies Allergy/AdvReac Type Severity Reaction Status Date / Time Penicillins Allergy Unknown Verified 05/24/18 08:01 Physical Exam Vitals: Vital Signs Temp Pulse Pulse Resp BP BP Pulse Ox 05/24/18 12:00 97.7 F 120 H 20 134/94 98 05/24/18 10:44 99.2 F 121 H 20 120/84 96 05/24/18 10:09 125 H 16 132/71 99 05/24/18 08:48 120 H 16 131/73 99 05/24/18 05:35 100.3 F H 121 H 20 123/79 99 Intake and Output 05/24/18 05/24/18 05/24/18 06:59 14:59 22:59 Other: Weight 77.111 kg - Constitutional Alert, uncooperative, hallucinating General appearance: average body habitus, disheveled, mild distress - EENT Eyes: EOMI, PERRLA ENT: hearing grossly normal Ears: bilateral: normal - Neck Neck: normal ROM Carotids: bilateral: upstroke normal Thyroid: bilateral: normal size - Respiratory Respiratory: bilateral: CTA - Cardiovascular Rhythm: regular Heart sounds: normal: S1, S2 - Gastrointestinal General gastrointestinal: normal bowel sounds - Integumentary Integumentary: normal turgor - Neurologic Neurologic: CNII-XII intact - Musculoskeletal Musculoskeletal: generalized weakness - Psychiatric Disoriented, altered mental status, acute withdrawals. Results - Laboratory Findings CBC and BMP: 05/24/18 05:35 05/24/18 05:35 PT/INR, D-dimer PT 10.4 sec (9.0-12.0) 05/24/18 05:35 INR 1.1 (<1.2) 05/24/18 05:35 Abnormal lab findings: Abnormal Labs 05/24/18 05/24/18 05/24/18 05:35 05:35 05:35 WBC 3.0 L RBC 2.92 L Hgb 8.6 L Hct 26.7 L Plt Count 69 L Lymphocytes # 0.4 L Sodium 134 L Chloride 92 L Glucose 106 H POC Glucose (mg/dL) AST 237 H ALT 144 H Alkaline Phosphatase 128 H Total Creatine Kinase 924 H CK-MB (CK-2) 3.4 H Urine Appearance Urine Protein Urine Ketones Urine Blood Urine Bilirubin Ur Leukocyte Esterase Urine RBC Urine WBC Urine WBC Clumps Ur Squamous Epith Cells Urine Mucus U Benzodiazepines Scrn 05/24/18 05/24/18 05:35 14:11 WBC RBC Hgb Hct Plt Count Lymphocytes # Sodium Chloride Glucose POC Glucose (mg/dL) 127 H AST ALT Alkaline Phosphatase Total Creatine Kinase CK-MB (CK-2) Urine Appearance Cloudy H Urine Protein 3+ H Urine Ketones 3+ H Urine Blood Moderate H Urine Bilirubin 1+ H Ur Leukocyte Esterase Moderate H Urine RBC 9 H Urine WBC 15 H Urine WBC Clumps Occasional H Ur Squamous Epith Cells 25 H Urine Mucus Moderate H U Benzodiazepines Scrn Detected H - Diagnostic Findings Chest x-ray: image reviewed Assessment and Plan Assessment: Impression: #1 Altered mental status secondary to acute alcohol withdrawal. #2 Elevated liver enzymes secondary to alcoholism. #3 Pancytopenia secondary to above. #4 Urinary tract infection, culture pending. #5 Prior history of alcohol withdrawal seizures. #6 Chronic tobacco dependence. #7 Urine drug screen positive for benzodiazepines. Plan: The patient was seen and evaluated by Dr. Emerson. We'll monitor her here closely in the intensive care unit. A sitter is at the bedside. Continue CIWA protocol. Add ceftriaxone for suspected UTI. Resume Keppra. GI prophylaxis. Seizure precautions. We will continue to follow and make further recommendations based on her clinical status. I, the cosigning physician, performed a history & physical examination of the patient. Lungs sounds are clear. Maintaining good O2 saturations in the 90s on room air. I discussed the assessment and plan of care with my nurse practitioner, Erika Edmondson. I attest to the above note as dictated by her. Time with Patient: Greater than 30
[2018-05-24] MEDS ORDERED: DIAZEPAM 5 MG TAB PO SCH (16:00)
[2018-05-24] MEDS ORDERED: METOPROLOL TARTRATE 12.5 MG TAB PO SCH (16:00)
[2018-05-24] MEDS: PANTOPRAZOLE 40 MG/10 ML VIAL IVP SCH (16:30)
[2018-05-24] MEDS: THIAMINE 100 MG TAB PO SCH (16:30)
[2018-05-24] MEDS: PROPOFOL 1,000 MG in EMPTY BAG 1 BAG IV SCH (19:40)
--- NOTE | 2018-05-24 20:27 | XR ---
EXAMINATION TYPE: XR chest 1V portable DATE OF EXAM: 05/24/2018 COMPARISON: Today HISTORY: Check tube placement TECHNIQUE: Single frontal view of the chest is obtained. FINDINGS: Endotracheal tube is 2.5 cm from the roddy. Nasogastric tube is in good position. Lungs a re clear. There is no heart failure. There are chest leads. IMPRESSION: Tubing in good position. No cardiopulmonary disease.
[2018-05-24] MEDS: CIPROFLOXACIN HCL 500 MG TAB PO SCH (23:30)
[2018-05-24] MEDS: CHLORHEXIDINE GLUCONATE 15 ML CUP MUCOUS MEM SCH (23:32)
[2018-05-24] MEDS: METOPROLOL TARTRATE 25 MG TAB PO SCH (23:32)
[2018-05-25] MEDS: PROPOFOL 1,000 MG in EMPTY BAG 1 BAG IV SCH ×6 (00:06→22:03)
[2018-05-25] MEDS: SODIUM CHLORIDE 0.9% 1,000 ML IV SCH ×2 (00:08→07:13)
[2018-05-25] MEDS: LORazepam 2 MG/ML INJ IV PRN ×2 (00:08→00:40)
--- NOTE | 2018-05-25 00:41 | HP ---
HISTORY AND PHYSICAL DATE OF ADMISSION: 05/24/2018. PRESENTING COMPLAINT: Confused. HISTORY OF PRESENTING COMPLAINT: This is a 27-year-old patient who presented this morning to the ER from [facility]. Most of the history is obtained from the nursing, ER, and a gentleman called Donald with whom the patient has been living for 7 months. Telephone number [phone]. The patient has been drinking significant alcohol, including vodka off and on for quite some time. She has had multiple seizure episodes. She informed me that he has multiple admissions to [place] and [place]. They also told her that if she continued to drinking, she may have 1 or 2 years to live. The patient was decided to go to [facility] and patient was there for 2 days. The patient's last drink apparently was 2 days ago. The patient started hallucinating. She started seeing things, spiders and animals, became tachycardic, agitated. Hence, she was admitted for DTs. Initially she was put on Valium, then switched over to the CIWA protocol with Ativan, admitted to the medical floor. Patient continued to become agitated. Did get 1 dose of Haldol. The patient became more and more agitated, confused, tachycardic. She was moved over to the intensive care unit under top collar baster, Dr. Emerson. She continued to be on the protocol with Ativan. Later this evening, the patient became more and more confused and it was determined she was compromising her airway and had to be intubated by Dr. Emerson. The patient is currently living with Donald, who is 58 years of age, just a friend, just takes care of her. The patient also has a boyfriend, often times lives at different places. He also informs me that the patient has a 5-year-old daughter who lives with her parents. He does inform me that the patient's parents do not wish to be involved with her any more. I did tell him to have the parents call us and let us know that directly since they are next of kin. The patient also smokes cigarettes. History of seizures. REVIEW OF SYSTEMS:: When I saw the patient, the patient was rather very delirious, could not give me much of a history other than above. PAST MEDICAL HISTORY: Seizure disorder, chronic alcoholism. PAST SURGICAL HISTORY: , orthopedic surgery, two right foot surgeries. SOCIAL HISTORY: Drinks a significant amount of alcohol including vodka. Smokes cigarettes. Lives with a person called Donald, telephone number [phone]. No recreational drugs reported. FAMILY HISTORY: Cannot be obtained from the patient's state. HOME MEDICATIONS: Keppra 750 mg p.o. b.i.d. ALLERGIES: PENICILLIN. PHYSICAL EXAMINATION: Temperature 98.5, pulse 128, respirations 23, blood pressure 134/51, pulse ox 98 percent. GENERAL APPEARANCE: Well-built, 31.2, restless, confused. EYES: Pupils equal. Conjunctivae normal. HEENT: External nose and ears normal. Oral cavity normal. NECK: JVD unable to assess. Mass not palpable. Respiratory effort normal. LUNGS: Fair entry. CARDIOVASCULAR: 1st and 2nd heart sounds normal. No edema. ABDOMEN: Soft, nontender. Liver and spleen not palpable. LYMPHATIC: No lymph nodes palpable in neck or axillae. PSYCHIATRY: The patient is very confused, delirious. NEUROLOGIC: Pupils equal. No facial asymmetry. Moving all 4 limbs. Restless. INVESTIGATIONS: White count 3, hemoglobin 8.6, platelets 69. Potassium 3.5. BUN and creatinine normal. AST 237, ALT 144. Urine drug screen positive for benzodiazepine. CT scan of the brain nonacute. ASSESSMENT: 1. Acute delirium tremens from acute alcohol withdrawal. 2. Chronic alcohol dependence. 3. Alcoholic hepatitis. 4. Pancytopenia, probably due to marrow suppression from chronic alcoholism. 5. Seizure disorder related to alcoholism. 6. Poor social structure. 7. Acute respiratory compromise leading the patient to be on ventilator support. PLAN: Patient was on CIWA protocol and IV Ativan protocol, Lucia Mendosa. The patient will be followed by top collar baster, Dr. Emerson. Stem Cutter will be involved. Seizure precautions. The patient also had a sitter. Also blood will be sent off for hepatitis, HIV. PROGNOSIS: Guarded. MMODL / IJN: [id number] /
[2018-05-25] MEDS: MIDAZOLAM HCL 100 MG in SODIUM CHLORIDE 0.9% 80 ML IV SCH ×2 (01:17→10:13)
[2018-05-25] MEDS: fentaNYL (PF) 2,500 MCG in SODIUM CHLORIDE 0.9% 200 ML IV SCH (02:14)
[2018-05-25] MEDS: MORPHINE SULFATE 2 MG/ML SYRINGE IV SCH ×2 (03:26→03:27)
[2018-05-25] MEDS ORDERED: MORPHINE SULFATE 2 MG/ML SYRINGE IV PRN (03:26)
[2018-05-25] MEDS: ARTIFICIAL TEARS-HYPROMELLOSE DROPS 15 ML BTL BOTH EYES SCH ×6 (03:29→22:15)
[2018-05-25] MEDS: SCOPOLAMINE 1.5MG/72HR PATCH TRANSDERM SCH (04:12)
[2018-05-25 05:15] LABS: Basophils % (A) 0 %; Eosinophils # (A) 0.1 k/uL (0-0.7); Eosinophils % (A) 2 %; HCT 24.1 % (34.0-46.0); HGB 7.8 gm/dL (11.4-16.0); Hypochromasia Moderate; Lymphocytes # (A) 0.3 k/uL (1.0-4.8); Lymphocytes % (A) 8 %; MCH 30.5 pg (25.0-35.0); MCHC 32.2 g/dL (31.0-37.0); MCV 94.7 fL (80.0-100.0); Mean Platelet Volume 9.5; Monocytes # (A) 0.2 k/uL (0-1.0); Monocytes % (A) 6 %; Neutrophils % (A) 82 %; Poikilocytosis Slight; RBC 2.54 m/uL (3.80-5.40); RDW 15.4 % (11.5-15.5); WBC 3.6 k/uL (3.8-10.6)
[2018-05-25 05:16] LABS: Platelet Count 48 k/uL (150-450)
[2018-05-25 05:24] LABS: ALT 111 U/L (9-52); AST 136 U/L (14-36); Albumin 3.8 g/dL (3.5-5.0); Alkaline Phosphatase 80 U/L (38-126); Anion Gap 12 mmol/L; Blood Urea Nitrogen 8 mg/dL (7-17); Calcium 8.7 mg/dL (8.4-10.2); Carbon Dioxide 21 mmol/L (22-30); Chloride 104 mmol/L (98-107); Glucose 103 mg/dL (74-99); Magnesium 1.6 mg/dL (1.6-2.3); Phosphorus 5.5 mg/dL (2.5-4.5); Potassium 3.3 mmol/L (3.5-5.1); Sodium 137 mmol/L (137-145); Total Bilirubin 0.5 mg/dL (0.2-1.3); Total Protein 6.8 g/dL (6.3-8.2)
[2018-05-25] MEDS ORDERED: Magnesium Replacement Protocol 1 EACH MISC MISCELLANE PRN (06:23)
[2018-05-25] MEDS ORDERED: Potassium Replacement Protocol 1 EACH MISC MISCELLANE PRN (06:23)
[2018-05-25 06:38] LABS: Glucose,Whole Blood 106 mg/dL (75-99)
[2018-05-25] MEDS: POTASSIUM BICARBONATE/CIT AC 20 MEQ TABLET.EFF NG-TUBE SCH ×2 (06:41→09:11)
[2018-05-25] MEDS: MAGNESIUM SULFATE-D5W PMX 1 GM in DEXTROSE/WATER 1 100ML.BAG IVPB SCH ×2 (06:41→09:11)
--- NOTE | 2018-05-25 07:15 | XR ---
EXAMINATION TYPE: XR chest 1V portable DATE OF EXAM: 05/25/2018 COMPARISON: 05/24/2018 INDICATION: Tube placement TECHNIQUE: Single frontal view of the chest is obtained. FINDINGS: The heart size is mildly prominent. The pulmonary vasculature is normal. The lungs are clear. Endotracheal tube tip remains above the roddy. Nasogastric tube transverses the thorax. IMPRESSION: 1. Mild cardiomegaly 2. Lines and catheters remain in position
[2018-05-25 09:00] LABS: ABG Base Excess 1.9 mmol/L; ABG HCO3 26 mmol/L (21-25); ABG PCO2 36 mmHg (35-45); ABG PH 7.47 (7.35-7.45); ABG PO2 176 mmHg (83-108); ABG TCO2 27 mmol/L (19-24)
[2018-05-25] MEDS: CISATRACURIUM 200 MG in SODIUM CHLORIDE 0.9% 180 ML IV SCH (09:10)
[2018-05-25] MEDS: CHLORHEXIDINE GLUCONATE 15 ML CUP MUCOUS MEM SCH ×2 (09:11→22:15)
[2018-05-25] MEDS: PANTOPRAZOLE 40 MG/10 ML VIAL IVP SCH (09:12)
[2018-05-25] MEDS: CIPROFLOXACIN HCL 500 MG TAB PO SCH ×2 (09:12→22:15)
[2018-05-25] MEDS: METOPROLOL TARTRATE 25 MG TAB PO SCH ×2 (09:13→22:16)
--- NOTE | 2018-05-25 11:05 | P.PN ---
Subjective Progress Note Date: 05/25/18 Principal diagnosis: Acute alcohol withdrawal/delirium tremens This is a 27-year-old female patient who follows with Dr. Salazar as her primary care physician. She has a history of alcoholism and alcoholic seizures from withdrawal in the past. She was on Keppra in the outpatient setting. She was recently admitted to [facility] and her last drink was approximately 48 hours ago. While there she was having altered mental status and hallucinations and EMS was called and she was transported here for the same. She was treated with Ativan and Haldol thus far. Mr. heránndez was required to be called on her while on the selective care unit. She was subsequently transferred here to the intensive care unit and we are consulted for the same. Presently she is awake, agitated, hallucinating. Disoriented to place and time. Somewhat combative and trying to climb out of bed. The CIWA protocol is in place. She has received another 2 mg of Ativan. She has had a T -max of 100.3. She is tachycardic. Urinalysis cloudy and positive for moderate amount of leukocytes, WBCs, ketones, protein. Urine drug screen positive for benzodiazepines. AST 237, ALT 144, alk phos 128, total creatinine kinase 924. White count 3.0. Hemoglobin 8.6. Platelet count 69,000. Computed tomography scan of the brain revealed no acute intracranial hemorrhage, mass effect or midline shift. Chest x-ray reveals no acute pulmonary process. Patient was reevaluated today on 05/25/2018, after transfer to the ICU, and in spite of significant amount of Ativan given to the patient, she continued to have significant agitation, and took at least 3 or 4 people to calm her down. I was notified about the extreme agitation of the patient, hence I recommended intubation and recommended sedation using propofol. Patient continues to have extreme agitation even on a high dose of propofol, hence I added Versed, and she remained agitated in spite of propofol and Versed on board. Then we added fentanyl 50 g per hour. The patient is now on mechanical ventilation, on 50 g of propofol, 5 mg per hour of Versed, and 50 mcg/h of fentanyl. That seems to be calming the patient down enough that she doesn't extubate herself, and does not harm herself. No paralytics were used, we will try to avoid paralytic agents as much as possible. Her ventilator settings at present are tidal volume of 400, FiO2 of 40%, assist control rate of 20, and PEEP at 5. ABG showed a pO2 of 176 pCO2 of 36 pH of 7.47. CBC showed WBC count of 3.6 hemoglobin of 7.8. Electrolytes are normal except for a low potassium of 3.3 being corrected. Liver enzymes/transaminases are trending down. Her urine is suggestive of urinary tract infection there is evidence of pyuria, bacteriuria, and positive leukocyte esterase. Patient is already on antibiotics. Culture is pending. Chest x-ray showed no evidence of active disease. Adequate placement of the endotracheal tube and orogastric tube. Nutritional support will be initiated today. Via enteral feeding. Objective - Vital Signs Vital signs: Vital Signs Temp 99.2 F 05/25/18 04:30 Pulse 93 05/25/18 07:00 Resp 19 05/25/18 07:00 BP 106/59 05/25/18 07:00 Pulse Ox 99 05/25/18 07:00 Intake & Output 05/24/18 05/25/18 05/25/18 18:59 06:59 18:59 Intake Total 300 1144.031 480.235 Output Total 1720 120 Balance 300 -575.969 360.235 Weight 85 kg 88.5 kg Intake: IV 300 920 160 Sodium Chloride 0.9% 1, 300 900 150 000 ml @ 75 mls/hr IV . [id number] CE Rx#:[id number] fentaNYL (PF) 2,500 mcg 20 10 In Sodium Chloride 0.9% 200 ml @ 50 MCG/HR 5 mls/ hr IV .Q24H CE Rx#: [id number] Intake, IV Titration 224.031 260.235 Amount Magnesium Sulfate-D5w Pmx 100 1 gm In Dextrose/Water 1 100ml.bag @ 100 mls/hr IVPB Q1H CE Rx#: [id number] Midazolam HCl 100 mg In 3.031 68.233 Sodium Chloride 0.9% 80 ml @ 0.02 MG/KG/HR 1.7 mls/hr IV .Q24H CE Rx#: [id number] Propofol 1,000 mg In 221.000 92.002 Empty Bag 1 bag @ Titrate IV .Q0M CE Rx#: [id number] Other 60 Output: Gastric Drainage 250 Urine 1470 120 Other: Voiding Method Bedpan Indwelling Catheter # Voids 1 # Bowel Movements 1 - Exam Physical Exam: Revealed a 27-year-old female on mechanical ventilation, sedated , in no distress. Head: Atraumatic, normocephalic. HEENT:[Neck is supple.] [No neck masses.] [No thyromegaly.] [No JVD.] PERRLA, EOMI, no icterus. Endotracheal tube and orogastric tube are intact. Chest: [Clear throughout, no crackles, no rhonchi, no wheezes.] Cardiac Exam: [Normal S1 and S2, no S3 gallop, no murmur.] Abdomen: [Obese, Soft, nontender, no megaly, no rebound, no guarding, normal bowel sounds.] Extremities: [No clubbing, no edema, no cyanosis.] Good pulses bilaterally. Neurological Exam: Cannot be assessed, patient is heavily sedated with propofol , Versed, and she is also on fentanyl. Lymphatics: No lymphadenopathy. Psychiatric: Could not be assessed because of sedation. - Labs CBC & Chem 7: 05/25/18 04:41 05/25/18 04:41 Labs: Abnormal Lab Results - Last 24 Hours (Table) 05/24/18 05/25/18 05/25/18 Range/Units 14:11 04:41 04:41 WBC 3.6 L (3.8-10.6) k/uL RBC 2.54 L (3.80-5.40) m/uL Hgb 7.8 L (11.4-16.0) gm/dL Hct 24.1 L (34.0-46.0) % Plt Count 48 L (150-450) k/uL Lymphocytes # 0.3 L (1.0-4.8) k/uL ABG pH (7.35-7.45) ABG pO2 (83-108) mmHg ABG HCO3 (21-25) mmol/L ABG Total CO2 (19-24) mmol/L ABG O2 Saturation (94-97) % Potassium 3.3 L (3.5-5.1) mmol/L Carbon Dioxide 21 L (22-30) mmol/L Creatinine 0.47 L (0.52-1.04) mg/dL Glucose 103 H (74-99) mg/dL POC Glucose (mg/dL) 127 H (75-99) mg/dL Phosphorus 5.5 H (2.5-4.5) mg/dL AST 136 H (14-36) U/L ALT 111 H (9-52) U/L 05/25/18 05/25/18 Range/Units 06:37 08:59 WBC (3.8-10.6) k/uL RBC (3.80-5.40) m/uL Hgb (11.4-16.0) gm/dL Hct (34.0-46.0) % Plt Count (150-450) k/uL Lymphocytes # (1.0-4.8) k/uL ABG pH 7.47 H (7.35-7.45) ABG pO2 176 H (83-108) mmHg ABG HCO3 26 H (21-25) mmol/L ABG Total CO2 27 H (19-24) mmol/L ABG O2 Saturation 100.0 H (94-97) % Potassium (3.5-5.1) mmol/L Carbon Dioxide (22-30) mmol/L Creatinine (0.52-1.04) mg/dL Glucose (74-99) mg/dL POC Glucose (mg/dL) 106 H (75-99) mg/dL Phosphorus (2.5-4.5) mg/dL AST (14-36) U/L ALT (9-52) U/L Microbiology - Last 24 Hours (Table) 05/25/18 01:16 Sputum Culture - Preliminary Sputum 05/24/18 05:35 Urine Culture - Preliminary Urine,Voided Assessment and Plan Assessment: Impression: 1 acute hypoxic respiratory failure secondary to acute alcohol withdrawal and delirium tremens. 2 alcohol liver disease 3 pancytopenia secondary to underlying liver disease 4 acute urinary tract infection cultures are pending 5 history of alcohol withdrawal seizures 6 elevated liver enzymes secondary to chronic history of alcohol abuse and alcohol liver disease. Recommendation: Continue ventilatory support, sedation, alcohol withdrawal protocol, nutritional support, GI and DVT prophylaxis, I have no plans to extubate the patient today, but we'll address on a daily basis and have daily sedation interruption, and depending on her overall all the response to treatment, further decisions and recommendations will be made. Considering her extreme agitation yesterday in spite of propofol, may take longer. Of time for the patient to be extubated from mechanical ventilation. That will be decided upon on a daily basis. Critical care time is 38 minutes. Time with Patient: Greater than 30
[2018-05-25 12:08] LABS: Glucose,Whole Blood 104 mg/dL (75-99)
[2018-05-25] MEDS: THIAMINE 100 MG TAB PO SCH ×2 (12:14→17:08)
[2018-05-25 13:33] LABS: HIV 1 AB Non-Reactive (Non-Reactive); HIV AB P24 Non-Reactive (Non-Reactive); HIV P24 AG Non-Reactive (Non-Reactive)
--- NOTE | 2018-05-25 14:36 | PN ---
PROGRESS NOTE DATE OF SERVICE: 05/24/2018 PRESENTING COMPLAINT: DTs. INTERVAL HISTORY: This patient is a long-standing alcoholic, presented from [place] with DTs, DTs are pretty severe, had to be moved to the ICU, then had to be intubated because of respiratory compromise last evening. Patient's current drips include propofol 50, Versed 5, fentanyl 50, no trach secretion, FiO2 is 50% with a PEEP of 5. REVIEW OF SYSTEMS: Patient intubated. CURRENT MEDICATIONS: Reviewed that include as above. PHYSICAL EXAMINATION: Temperature 99.3, pulse 85, respiration 20, blood pressure 106/61, pulse ox 99% on mechanical ventilator. GENERAL APPEARANCE: Well-built, lying in bed, intubated. EYES: Pupils equal, conjunctivae normal. HEENT: External appearance of nose and ears normal. Oral cavity, endotracheal tube, neck JVD unable to assess. Mass not palpable. RESPIRATORY: Effort normal. LUNGS: Fair entry. CARDIOVASCULAR: First and second sounds normal. No edema. ABDOMEN: Soft, nontender. Liver and spleen not palpable. NEUROLOGICAL: Pupils are reactive. Plantars are downgoing. INVESTIGATIONS: Blood gases are noted. White count 3.6, hemoglobin 7.8, platelets 48, potassium 3.3. ASSESSMENT: 1. Acute delirium tremens, severe from alcohol withdrawal. 2. Chronic alcohol dependence. 3. Alcoholic hepatitis. 4. Pancytopenia probably due to marrow suppression from chronic alcoholism. 5. Seizure disorder related to alcoholism. 6. Poor social structure. 7. Acute respiratory compromise leading to patient being on ventilator support. 8. Hepatitis B surface antibody. PLAN: Continue current medication and treatment plan. Supportive care. IV fluids. Will also have Neurology see the patient because of seizures. MMODL / IJN: [id number] /
[2018-05-25 18:13] LABS: Glucose,Whole Blood 96 mg/dL (75-99)
--- NOTE | 2018-05-25 20:58 | CT ---
EXAMINATION TYPE: CT brain wo con DATE OF EXAM: 05/25/2018 COMPARISON: Yesterday HISTORY: ams, overdose CT DLP: 3115.5 mGycm. Automated Exposure Control for Dose Reduction was Utilized. TECHNIQUE: CT scan of the head is performed without contrast. FINDINGS: There is mild cerebral cortical atrophy. There is no mass effect nor midline shift. There i s no sign of intracranial hemorrhage. The calvarium is intact. Endotracheal tube is noted. IMPRESSION: Mild atrophy. No acute intracranial abnormality. No change.
[2018-05-25 23:44] LABS: Glucose,Whole Blood 92 mg/dL (75-99)
[2018-05-26] MEDS: MIDAZOLAM HCL 100 MG in SODIUM CHLORIDE 0.9% 80 ML IV SCH ×2 (00:30→18:59)
[2018-05-26] MEDS: SODIUM CHLORIDE 0.9% 1,000 ML IV SCH ×2 (00:31→14:25)
[2018-05-26] MEDS: CISATRACURIUM 200 MG in SODIUM CHLORIDE 0.9% 180 ML IV SCH (02:30)
[2018-05-26] MEDS: ARTIFICIAL TEARS-HYPROMELLOSE DROPS 15 ML BTL BOTH EYES SCH ×5 (04:36→20:41)
[2018-05-26] MEDS: PROPOFOL 1,000 MG in EMPTY BAG 1 BAG IV SCH ×5 (05:12→20:41)
[2018-05-26 05:45] LABS: Anion Gap 7 mmol/L; Blood Urea Nitrogen 7 mg/dL (7-17); Calcium 8.1 mg/dL (8.4-10.2); Carbon Dioxide 22 mmol/L (22-30); Chloride 108 mmol/L (98-107); Glucose 89 mg/dL (74-99); Phosphorus 4.9 mg/dL (2.5-4.5); Potassium 3.4 mmol/L (3.5-5.1); Sodium 137 mmol/L (137-145)
[2018-05-26 05:51] LABS: HCT 22.1 % (34.0-46.0); Hypochromasia Marked; MCH 29.9 pg (25.0-35.0); MCHC 31.4 g/dL (31.0-37.0); MCV 95.1 fL (80.0-100.0); Mean Platelet Volume 9.4; Poikilocytosis Slight; RBC 2.32 m/uL (3.80-5.40); RDW 15.3 % (11.5-15.5)
[2018-05-26 05:54] LABS: Platelet Count 71 k/uL (150-450)
[2018-05-26 05:57] LABS: HGB 6.9 gm/dL (11.4-16.0)
[2018-05-26 06:17] LABS: Basophils # (M) 0.03 k/uL (0-0.2); Eosinophils # (M) 0.12 k/uL (0-0.7); Lymphocytes # (M) 0.84 k/uL (1.0-4.8); Monocytes # (M) 0.15 k/uL (0-1.0); Neutrophils # (M) 1.86 k/uL (1.3-7.7); Neutrophils % (M) 62 %; Nucleated Red Blood Cells 0 /100 WBC (0-0); Total Cells Counted 100
[2018-05-26 06:22] LABS: Basophils % (A) 1 %; Eosinophils # (A) 0.1 k/uL (0-0.7); Eosinophils % (A) 5 %; HCT 22.7 % (34.0-46.0); HGB 7.4 gm/dL (11.4-16.0); Hypochromasia Moderate; Lymphocytes # (A) 0.5 k/uL (1.0-4.8); Lymphocytes % (A) 19 %; MCH 30.6 pg (25.0-35.0); MCHC 32.4 g/dL (31.0-37.0); MCV 94.5 fL (80.0-100.0); Mean Platelet Volume 9.8; Monocytes # (A) 0.3 k/uL (0-1.0); Monocytes % (A) 10 %; Neutrophils # (A) 1.6 k/uL (1.3-7.7); Neutrophils % (A) 63 %; Platelet Count 59 k/uL (150-450); Poikilocytosis Slight; RBC 2.41 m/uL (3.80-5.40); RDW 15.5 % (11.5-15.5); WBC 2.5 k/uL (3.8-10.6)
[2018-05-26 06:38] LABS: Glucose,Whole Blood 82 mg/dL (75-99)
--- NOTE | 2018-05-26 07:05 | XR ---
EXAMINATION TYPE: XR chest 1V portable DATE OF EXAM: 05/26/2018 HISTORY: Tube placement. REFERENCE: Previous study dated 05/25/2018. FINDINGS: The patient is intubated. ET tube is in satisfactory position overlying the T3-4 disc level . An NG tube is in place and its tip is in the stomach. The heart is normal in size. The lungs are clear. Pleural spaces are clear. IMPRESSION: NO ACTIVE CARDIOTHORACIC ABNORMALITY.
[2018-05-26 07:21] LABS: ABG Base Excess -0.7 mmol/L; ABG HCO3 24 mmol/L (21-25); ABG PCO2 36 mmHg (35-45); ABG PH 7.43 (7.35-7.45); ABG PO2 161 mmHg (83-108); ABG TCO2 25 mmol/L (19-24)
[2018-05-26] MEDS: CIPROFLOXACIN HCL 500 MG TAB PO SCH ×2 (08:52→20:41)
[2018-05-26] MEDS: POTASSIUM BICARBONATE/CIT AC 20 MEQ TABLET.EFF NG-TUBE SCH ×2 (08:52→08:56)
[2018-05-26] MEDS: METOPROLOL TARTRATE 25 MG TAB PO SCH ×2 (08:52→22:35)
[2018-05-26] MEDS: PANTOPRAZOLE 40 MG/10 ML VIAL IVP SCH (08:52)
[2018-05-26] MEDS: CHLORHEXIDINE GLUCONATE 15 ML CUP MUCOUS MEM SCH ×2 (08:52→20:41)
[2018-05-26] MEDS: THIAMINE 100 MG TAB PO SCH ×2 (11:12→16:06)
[2018-05-26 12:13] LABS: Glucose,Whole Blood 107 mg/dL (75-99)
--- NOTE | 2018-05-26 12:14 | P.PN ---
Subjective Progress Note Date: 05/26/18 Principal diagnosis: Acute alcohol withdrawal/delirium tremens This is a 27-year-old female patient who follows with Dr. Salazar as her primary care physician. She has a history of alcoholism and alcoholic seizures from withdrawal in the past. She was on Keppra in the outpatient setting. She was recently admitted to [facility] and her last drink was approximately 48 hours ago. While there she was having altered mental status and hallucinations and EMS was called and she was transported here for the same. She was treated with Ativan and Haldol thus far. Mr. hernández was required to be called on her while on the selective care unit. She was subsequently transferred here to the intensive care unit and we are consulted for the same. Presently she is awake, agitated, hallucinating. Disoriented to place and time. Somewhat combative and trying to climb out of bed. The CIWA protocol is in place. She has received another 2 mg of Ativan. She has had a T -max of 100.3. She is tachycardic. Urinalysis cloudy and positive for moderate amount of leukocytes, WBCs, ketones, protein. Urine drug screen positive for benzodiazepines. AST 237, ALT 144, alk phos 128, total creatinine kinase 924. White count 3.0. Hemoglobin 8.6. Platelet count 69,000. Computed tomography scan of the brain revealed no acute intracranial hemorrhage, mass effect or midline shift. Chest x-ray reveals no acute pulmonary process. Patient was reevaluated today on 05/25/2018, after transfer to the ICU, and in spite of significant amount of Ativan given to the patient, she continued to have significant agitation, and took at least 3 or 4 people to calm her down. I was notified about the extreme agitation of the patient, hence I recommended intubation and recommended sedation using propofol. Patient continues to have extreme agitation even on a high dose of propofol, hence I added Versed, and she remained agitated in spite of propofol and Versed on board. Then we added fentanyl 50 g per hour. The patient is now on mechanical ventilation, on 50 g of propofol, 5 mg per hour of Versed, and 50 mcg/h of fentanyl. That seems to be calming the patient down enough that she doesn't extubate herself, and does not harm herself. No paralytics were used, we will try to avoid paralytic agents as much as possible. Her ventilator settings at present are tidal volume of 400, FiO2 of 40%, assist control rate of 20, and PEEP at 5. ABG showed a pO2 of 176 pCO2 of 36 pH of 7.47. CBC showed WBC count of 3.6 hemoglobin of 7.8. Electrolytes are normal except for a low potassium of 3.3 being corrected. Liver enzymes/transaminases are trending down. Her urine is suggestive of urinary tract infection there is evidence of pyuria, bacteriuria, and positive leukocyte esterase. Patient is already on antibiotics. Culture is pending. Chest x-ray showed no evidence of active disease. Adequate placement of the endotracheal tube and orogastric tube. Nutritional support will be initiated today. Via enteral feeding. Reevaluated today on 05/26/2018, remains in the ICU on mechanical ventilation, ventilator settings were reviewed, and they are basically unchanged however the FiO2 was decreased down to 30%. Tidal volume is 400 assist control rate of 20 PEEP is 5. ABG was reviewed, chest x-ray was reviewed, both are relatively unremarkable. Labs were reviewed, she has a hemoglobin of 7.4, it was 6.9 yesterday. Seems to be consistent with iron deficiency anemia. Platelets are low at 59,000. Related to her chronic alcohol liver disease. ABG showed a pO2 of 161 pCO2 of 36 pH of 7.43. Patient remains on propofol, fentanyl, and Versed drip. Doses are being adjusted however she is mostly on 50 mcg/kg/m of propofol, 5 mg per hour of Versed and 50 mcg/h of fentanyl. Propofol was placed on hold, and were able to assess her mental status, patient is following instructions, but she gets easily agitated, tachycardic, tachypneic, even with minimal decrease in the amount of sedation. Hence I have no plans to extubate the patient today. Objective - Vital Signs Vital signs: Vital Signs Temp 99 F 05/26/18 08:00 Pulse 85 05/26/18 11:00 Resp 20 05/26/18 11:09 BP 105/58 05/26/18 11:00 Pulse Ox 100 05/26/18 11:00 Intake & Output 05/25/18 05/26/18 05/26/18 18:59 06:59 18:59 Intake Total 7874.055 9438.417 818.158 Output Total 710 595 395 Balance 780.235 936.417 423.158 Weight 89 kg 89.5 kg Intake: IV 880 960 400 Sodium Chloride 0.9% 1, 825 900 375 000 ml @ 75 mls/hr IV . [id number] CE Rx#:[id number] fentaNYL (PF) 2,500 mcg 55 60 25 In Sodium Chloride 0.9% 200 ml @ 50 MCG/HR 5 mls/ hr IV .Q24H CE Rx#: [id number] Intake, IV Titration 460.235 171.417 136.158 Amount Magnesium Sulfate-D5w Pmx 100 1 gm In Dextrose/Water 1 100ml.bag @ 100 mls/hr IVPB Q1H CE Rx#: [id number] Midazolam HCl 100 mg In 68.233 71.417 Sodium Chloride 0.9% 80 ml @ 0.02 MG/KG/HR 1.7 mls/hr IV .Q24H CE Rx#: [id number] Propofol 1,000 mg In 292.002 100 136.158 Empty Bag 1 bag @ Titrate IV .Q0M CE Rx#: [id number] Oral 60 Tube Feeding 30 250 132 Other 60 150 150 Output: Urine 710 595 395 Other: Voiding Method Indwelling Catheter Indwelling Catheter Indwelling Catheter # Voids 1 1 # Bowel Movements 0 0 - Exam Physical Exam: Revealed a 27-year-old female on mechanical ventilation, sedated , in no distress. Head: Atraumatic, normocephalic. HEENT:[Neck is supple.] [No neck masses.] [No thyromegaly.] [No JVD.] PERRLA, EOMI, no icterus. Endotracheal tube and orogastric tube are intact. Chest: [Clear throughout, no crackles, no rhonchi, no wheezes.] Cardiac Exam: [Normal S1 and S2, no S3 gallop, no murmur.] Abdomen: [Obese, Soft, nontender, no megaly, no rebound, no guarding, normal bowel sounds.] Extremities: [No clubbing, no edema, no cyanosis.] Good pulses bilaterally. Neurological Exam: Off propofol, patient was noted to follow simple instructions , but gets agitated very easily. Lymphatics: No lymphadenopathy. Psychiatric: Could not be assessed because of sedation. - Labs CBC & Chem 7: 05/26/18 06:10 05/26/18 05:05 Labs: Abnormal Lab Results - Last 24 Hours (Table) 05/25/18 05/26/18 05/26/18 Range/Units 12:05 05:05 05:05 WBC 3.0 L (3.8-10.6) k/uL RBC 2.32 L (3.80-5.40) m/uL Hgb 6.9 L* (11.4-16.0) gm/dL Hct 22.1 L (34.0-46.0) % Plt Count 71 L (150-450) k/uL Lymphocytes # (1.0-4.8) k/uL Lymphocytes # (Manual) 0.84 L (1.0-4.8) k/uL ABG pO2 (83-108) mmHg ABG Total CO2 (19-24) mmol/L ABG O2 Saturation (94-97) % Potassium 3.4 L (3.5-5.1) mmol/L Chloride 108 H (98-107) mmol/L Creatinine 0.46 L (0.52-1.04) mg/dL POC Glucose (mg/dL) 104 H (75-99) mg/dL Calcium 8.1 L (8.4-10.2) mg/dL Phosphorus 4.9 H (2.5-4.5) mg/dL 05/26/18 05/26/18 Range/Units 06:10 07:18 WBC 2.5 L (3.8-10.6) k/uL RBC 2.41 L (3.80-5.40) m/uL Hgb 7.4 L (11.4-16.0) gm/dL Hct 22.7 L (34.0-46.0) % Plt Count 59 L (150-450) k/uL Lymphocytes # 0.5 L (1.0-4.8) k/uL Lymphocytes # (Manual) (1.0-4.8) k/uL ABG pO2 161 H (83-108) mmHg ABG Total CO2 25 H (19-24) mmol/L ABG O2 Saturation 100.0 H (94-97) % Potassium (3.5-5.1) mmol/L Chloride (98-107) mmol/L Creatinine (0.52-1.04) mg/dL POC Glucose (mg/dL) (75-99) mg/dL Calcium (8.4-10.2) mg/dL Phosphorus (2.5-4.5) mg/dL Microbiology - Last 24 Hours (Table) 05/25/18 01:16 Gram Stain - Preliminary Sputum Sputum Culture - Preliminary 05/24/18 05:35 Urine Culture - Final Urine,Voided Assessment and Plan Assessment: Impression: 1 acute hypoxic respiratory failure secondary to acute alcohol withdrawal and delirium tremens. 2 alcohol liver disease 3 pancytopenia secondary to underlying liver disease 4 acute urinary tract infection cultures are pending 5 history of alcohol withdrawal seizures 6 elevated liver enzymes secondary to chronic history of alcohol abuse and alcohol liver disease. Recommendation: Continue ventilatory support, sedation, continue propofol Versed and fentanyl, continue nutritional support, GI and DVT prophylaxis, I have no plans to extubate the patient today, I was able to assess mental status briefly off propofol, patient gets extremely agitated once sedation is placed on hold for a longer time, hence no plans to extubate the patient critical care time is 35 minutes Time with Patient: Greater than 30
[2018-05-26 18:45] LABS: Glucose,Whole Blood 98 mg/dL (75-99)
--- NOTE | 2018-05-26 21:12 | P.PN ---
Subjective On-call hospitalist covering for Dr. Muñiz This is a pleasant 27 years old female who was sent from [place] for alcohol withdrawal and delirium tremens. Patient was found to be educated that need. Intubation on 05/25/2018 as well as adding multiple sedatives including Versed, propofol and fentanyl drips, her down. Patient has low hemoglobin of 6.9 and 7.4. Her labs from 2 months ago showing low aren't at 46 with low TIBC which shows more towards anemia of chronic disease. Iron saturation is within normal limits at 20. ferritin is within normal limits at 126. Patient has reactive hepatitis BS antibody. Her liver enzymes are trending down. B12 level more than 1000 and folate is within normal limits. Review of systems could not be done because pt is sedated medication reviewed: Cipro 500 mg, fentanyl 250 ml, peridex 15 ml, Keppra 750 mg, ativan as per [facility] protocol , midazolam 100 mg, morphine sulfate 2 mg, protonix 40 mg, scopolamine patch, normal saline at 75 ml/h, thiamin 100 mg Objective - Vital Signs Vital signs: Vital Signs Temp 99 F 05/26/18 08:00 Pulse 85 05/26/18 11:00 Resp 20 05/26/18 11:09 BP 105/58 05/26/18 11:00 Pulse Ox 100 05/26/18 11:00 Intake & Output 05/25/18 05/26/18 05/26/18 18:59 06:59 18:59 Intake Total 6259.370 3630.417 818.158 Output Total 710 595 395 Balance 780.235 936.417 423.158 Weight 89 kg 89.5 kg Intake: IV 880 960 400 Sodium Chloride 0.9% 1, 825 900 375 000 ml @ 75 mls/hr IV . [id number] CE Rx#:[id number] fentaNYL (PF) 2,500 mcg 55 60 25 In Sodium Chloride 0.9% 200 ml @ 50 MCG/HR 5 mls/ hr IV .Q24H CE Rx#: [id number] Intake, IV Titration 460.235 171.417 136.158 Amount Magnesium Sulfate-D5w Pmx 100 1 gm In Dextrose/Water 1 100ml.bag @ 100 mls/hr IVPB Q1H CE Rx#: [id number] Midazolam HCl 100 mg In 68.233 71.417 Sodium Chloride 0.9% 80 ml @ 0.02 MG/KG/HR 1.7 mls/hr IV .Q24H CE Rx#: [id number] Propofol 1,000 mg In 292.002 100 136.158 Empty Bag 1 bag @ Titrate IV .Q0M CE Rx#: [id number] Oral 60 Tube Feeding 30 250 132 Other 60 150 150 Output: Urine 710 595 395 Other: Voiding Method Indwelling Catheter Indwelling Catheter Indwelling Catheter # Voids 1 1 # Bowel Movements 0 0 - Exam -GENERAL: The patient is intubated and sedated, not in any acute distress. Well developed, well nourished. HEENT: Pupils are round and equally reacting to light. EOMI. No scleral icterus. No conjunctival pallor. Normocephalic, atraumatic. No pharyngeal erythema. No thyromegaly. CARDIOVASCULAR: S1 and S2 present. No murmurs, rubs, or gallops. PULMONARY: Chest is clear to auscultation, no wheezing or crackles. ABDOMEN: Soft, nontender, nondistended, normoactive bowel sounds. No palpable organomegaly. MUSCULOSKELETAL: No joint swelling or deformity. EXTREMITIES: No cyanosis, clubbing, or pedal edema. NEUROLOGICAL: Gross neurological examination did not reveal any focal deficits. SKIN: No rashes. - Labs CBC & Chem 7: 05/26/18 06:10 05/26/18 05:05 Labs: Abnormal Lab Results - Last 24 Hours (Table) 05/26/18 05/26/18 05/26/18 Range/Units 05:05 05:05 06:10 WBC 3.0 L 2.5 L (3.8-10.6) k/uL RBC 2.32 L 2.41 L (3.80-5.40) m/uL Hgb 6.9 L* 7.4 L (11.4-16.0) gm/dL Hct 22.1 L 22.7 L (34.0-46.0) % Plt Count 71 L 59 L (150-450) k/uL Lymphocytes # 0.5 L (1.0-4.8) k/uL Lymphocytes # (Manual) 0.84 L (1.0-4.8) k/uL ABG pO2 (83-108) mmHg ABG Total CO2 (19-24) mmol/L ABG O2 Saturation (94-97) % Potassium 3.4 L (3.5-5.1) mmol/L Chloride 108 H (98-107) mmol/L Creatinine 0.46 L (0.52-1.04) mg/dL POC Glucose (mg/dL) (75-99) mg/dL Calcium 8.1 L (8.4-10.2) mg/dL Phosphorus 4.9 H (2.5-4.5) mg/dL 05/26/18 05/26/18 Range/Units 07:18 12:11 WBC (3.8-10.6) k/uL RBC (3.80-5.40) m/uL Hgb (11.4-16.0) gm/dL Hct (34.0-46.0) % Plt Count (150-450) k/uL Lymphocytes # (1.0-4.8) k/uL Lymphocytes # (Manual) (1.0-4.8) k/uL ABG pO2 161 H (83-108) mmHg ABG Total CO2 25 H (19-24) mmol/L ABG O2 Saturation 100.0 H (94-97) % Potassium (3.5-5.1) mmol/L Chloride (98-107) mmol/L Creatinine (0.52-1.04) mg/dL POC Glucose (mg/dL) 107 H (75-99) mg/dL Calcium (8.4-10.2) mg/dL Phosphorus (2.5-4.5) mg/dL Microbiology - Last 24 Hours (Table) 05/25/18 01:16 Gram Stain - Preliminary Sputum Sputum Culture - Preliminary 05/24/18 05:35 Urine Culture - Final Urine,Voided Assessment and Plan Assessment: Acute alcohol withdrawal and delirium tremens Confusion and unable to protect her airway secondary to above, status post intubation History of alcohol withdrawal seizure UTI Chronic anemia Chronic alcoholic liver disease Pancytopenia , of unknown etiology Plan: This is a pleasant 27 years old female who presents because of alcohol withdrawal and delirium tremens that needed intubation. Labs and medication refills. Continue with same treatment. Continue with symptomatic treatment. Monitor lytes and vitals. Pulmonary/critical care unit team were consulted. Neurology has been called for her history of seizure. Patient with pancytopenia and recommend hematology team to see patient. DVT prophylaxis. Further recommendations of the clinical course of the patient DVT prophylaxis: Heparin GI prophylaxis: Protonix prognosis is guarded
[2018-05-26] MEDS ORDERED: Potassium Replacement Protocol 1 EACH MISC MISCELLANE PRN (22:33)
[2018-05-26] MEDS ORDERED: POTASSIUM CHLORIDE 10 MEQ in WATER FOR INJECTION 1 100ML.BAG IVPB SCH (22:45)
[2018-05-26] MEDS ORDERED: POTASSIUM BICARBONATE/CIT AC 20 MEQ TABLET.EFF NG-TUBE SCH (23:00)
[2018-05-27] MEDS: ARTIFICIAL TEARS-HYPROMELLOSE DROPS 15 ML BTL BOTH EYES SCH ×6 (00:20→21:16)
[2018-05-27 00:21] LABS: Glucose,Whole Blood 90 mg/dL (75-99)
[2018-05-27] MEDS: fentaNYL (PF) 2,500 MCG in SODIUM CHLORIDE 0.9% 200 ML IV SCH ×2 (00:33→14:15)
[2018-05-27] MEDS: CISATRACURIUM 200 MG in SODIUM CHLORIDE 0.9% 180 ML IV SCH ×2 (02:19→23:11)
[2018-05-27 03:49] LABS: Basophils % (A) 0 %; Eosinophils # (A) 0.1 k/uL (0-0.7); Eosinophils % (A) 4 %; HCT 21.9 % (34.0-46.0); HGB 7.1 gm/dL (11.4-16.0); Hypochromasia Moderate; Lymphocytes # (A) 0.4 k/uL (1.0-4.8); Lymphocytes % (A) 14 %; MCH 30.1 pg (25.0-35.0); MCHC 32.4 g/dL (31.0-37.0); MCV 92.7 fL (80.0-100.0); Mean Platelet Volume 8.8; Monocytes # (A) 0.4 k/uL (0-1.0); Monocytes % (A) 12 %; Neutrophils % (A) 66 %; Poikilocytosis Slight; RBC 2.36 m/uL (3.80-5.40); RDW 15.2 % (11.5-15.5)
[2018-05-27 03:50] LABS: Platelet Count 101 k/uL (150-450)
[2018-05-27 03:55] LABS: ALT 90 U/L (9-52); AST 90 U/L (14-36); Alkaline Phosphatase 95 U/L (38-126); Anion Gap 7 mmol/L; Blood Urea Nitrogen 4 mg/dL (7-17); Calcium 8.3 mg/dL (8.4-10.2); Carbon Dioxide 23 mmol/L (22-30); Chloride 107 mmol/L (98-107); Glucose 98 mg/dL (74-99); Magnesium 1.9 mg/dL (1.6-2.3); Phosphorus 4.5 mg/dL (2.5-4.5); Potassium 3.8 mmol/L (3.5-5.1); Sodium 137 mmol/L (137-145); Total Bilirubin 0.4 mg/dL (0.2-1.3); Total Protein 5.8 g/dL (6.3-8.2)
[2018-05-27] MEDS: MAGNESIUM SULFATE-D5W PMX 1 GM in DEXTROSE/WATER 1 100ML.BAG IVPB SCH ×2 (04:37→05:45)
[2018-05-27] MEDS: PROPOFOL 1,000 MG in EMPTY BAG 1 BAG IV SCH ×7 (04:37→22:50)
[2018-05-27] MEDS ORDERED: POTASSIUM BICARBONATE/CIT AC 20 MEQ TABLET.EFF NG-TUBE SCH (05:00)
[2018-05-27 05:09] LABS: ABG Base Excess 0.3 mmol/L; ABG HCO3 25 mmol/L (21-25); ABG Oxygen Saturation 99.5 % (94-97); ABG PCO2 38 mmHg (35-45); ABG PH 7.42 (7.35-7.45); ABG PO2 118 mmHg (83-108); ABG TCO2 26 mmol/L (19-24)
[2018-05-27] MEDS: MIDAZOLAM HCL 100 MG in SODIUM CHLORIDE 0.9% 80 ML IV SCH ×4 (05:45→15:18)
--- NOTE | 2018-05-27 05:55 | XR ---
EXAMINATION TYPE: XR chest 1V portable DATE OF EXAM: 05/27/2018 HISTORY: Tube placement. REFERENCE: Previous study dated 05/26/2018. FINDINGS: The patient's ET tube and NG tube remain in place, unchanged in appearance. The heart is mildly enlarged. There is bibasilar atelectasis. Pleural spaces are clear. IMPRESSION: 1. CARDIOMEGALY. 2. BIBASILAR ATELECTASIS.
[2018-05-27 05:58] LABS: Glucose,Whole Blood 115 mg/dL (75-99)
[2018-05-27] MEDS: CIPROFLOXACIN HCL 500 MG TAB PO SCH ×2 (08:06→21:57)
[2018-05-27] MEDS: CHLORHEXIDINE GLUCONATE 15 ML CUP MUCOUS MEM SCH ×2 (08:06→21:17)
[2018-05-27] MEDS: METOPROLOL TARTRATE 25 MG TAB PO SCH ×2 (08:06→21:07)
[2018-05-27] MEDS: PANTOPRAZOLE 40 MG/10 ML VIAL IVP SCH (08:06)
[2018-05-27] MEDS: SODIUM CHLORIDE 0.9% 1,000 ML IV SCH ×2 (08:07→17:06)
--- NOTE | 2018-05-27 09:44 | P.PN ---
Subjective Progress Note Date: 05/26/18 This patient is a 27-year-old female who was admitted from [place] [facility] for alcohol withdrawal and acute delirium tremens. Patient has a known history of alcohol abuse in the past. She also has underlying seizure disorder and has been taking anticonvulsant therapy with Keppra. She was admitted to the intensive care unit where she was started on a CIWA protocol for alcohol withdrawal. Her Keppra blood level is pending today. The patient was given a sedation holiday this morning but could not tolerate this. She had to be restarted on Diprivan. She is currently on Diprivan 50 g/ h and she remains heavily sedated. She does open her eyes only minimally the sternal rub. Her Keppra blood level is still pending from the laboratory. She has not had any fever today. We will continue close neurological follow-up of this patient in the intensive care unit. Objective - Vital Signs Vital signs: Vital Signs Temp 98.4 F 05/26/18 20:00 Pulse 79 05/26/18 21:00 Resp 20 05/26/18 21:00 BP 99/56 05/26/18 21:00 Pulse Ox 99 05/26/18 21:00 Intake & Output 05/26/18 05/26/18 05/27/18 06:59 18:59 06:59 Intake Total 9785.290 5530.118 316 Output Total 595 1255 170 Balance 936.417 730.118 146 Weight 89.5 kg Intake: IV 960 1040 160 Sodium Chloride 0.9% 1, 900 975 150 000 ml @ 75 mls/hr IV . [id number] CE Rx#:[id number] fentaNYL (PF) 2,500 mcg 60 65 10 In Sodium Chloride 0.9% 200 ml @ 50 MCG/HR 5 mls/ hr IV .Q24H CE Rx#: [id number] Intake, IV Titration 171.417 379.118 100 Amount Midazolam HCl 100 mg In 71.417 100.000 Sodium Chloride 0.9% 80 ml @ 0.02 MG/KG/HR 1.7 mls/hr IV .Q24H CE Rx#: [id number] Propofol 1,000 mg In 100 279.118 100 Empty Bag 1 bag @ Titrate IV .Q0M CE Rx#: [id number] Tube Feeding 250 356 56 Other 150 210 Output: Urine 595 1255 170 Other: Voiding Method Indwelling Catheter Indwelling Catheter # Voids 1 # Bowel Movements 0 0 - Exam Physical examination: PHYSICAL EXAMINATION: Patient is examined in the intensive care unit and she is currently intubated on the ventilator. She is receiving Diprivan for sedation. VITAL SIGNS: Blood pressure is [99/56]. Heart rate is [79]. Respiration is [20] . Temperature is [98.4]. HEENT: Head is atraumatic, neck is supple, there were no carotid bruits. CHEST: Lungs are clear to auscultation and percussion. CARDIAC: S1, S2 normal rate and rhythm. There is no murmur. ABDOMEN: Soft and nontender. Bowel sounds are present. EXTREMITIES: There is no pedal edema. Peripheral pulses are present, Neurological examination: Patient's neurological examination is unchanged from yesterday. - Labs CBC & Chem 7: 05/27/18 03:05 05/27/18 05:58 Labs: Abnormal Lab Results - Last 24 Hours (Table) 05/26/18 05/26/18 05/26/18 Range/Units 05:05 05:05 06:10 WBC 3.0 L 2.5 L (3.8-10.6) k/uL RBC 2.32 L 2.41 L (3.80-5.40) m/uL Hgb 6.9 L* 7.4 L (11.4-16.0) gm/dL Hct 22.1 L 22.7 L (34.0-46.0) % Plt Count 71 L 59 L (150-450) k/uL Lymphocytes # 0.5 L (1.0-4.8) k/uL Lymphocytes # (Manual) 0.84 L (1.0-4.8) k/uL ABG pO2 (83-108) mmHg ABG Total CO2 (19-24) mmol/L ABG O2 Saturation (94-97) % Potassium 3.4 L (3.5-5.1) mmol/L Chloride 108 H (98-107) mmol/L Creatinine 0.46 L (0.52-1.04) mg/dL POC Glucose (mg/dL) (75-99) mg/dL Calcium 8.1 L (8.4-10.2) mg/dL Phosphorus 4.9 H (2.5-4.5) mg/dL 05/26/18 05/26/18 Range/Units 07:18 12:11 WBC (3.8-10.6) k/uL RBC (3.80-5.40) m/uL Hgb (11.4-16.0) gm/dL Hct (34.0-46.0) % Plt Count (150-450) k/uL Lymphocytes # (1.0-4.8) k/uL Lymphocytes # (Manual) (1.0-4.8) k/uL ABG pO2 161 H (83-108) mmHg ABG Total CO2 25 H (19-24) mmol/L ABG O2 Saturation 100.0 H (94-97) % Potassium (3.5-5.1) mmol/L Chloride (98-107) mmol/L Creatinine (0.52-1.04) mg/dL POC Glucose (mg/dL) 107 H (75-99) mg/dL Calcium (8.4-10.2) mg/dL Phosphorus (2.5-4.5) mg/dL Assessment and Plan (1) Acute metabolic encephalopathy Current Visit: Yes Status: Acute Code(s): G93.41 - METABOLIC ENCEPHALOPATHY SNOMED Code(s): 25106478 (2) Alcohol withdrawal Current Visit: Yes Status: Acute Code(s): F10.239 - ALCOHOL DEPENDENCE WITH WITHDRAWAL, UNSPECIFIED SNOMED Code(s): 700246867 (3) Seizure disorder Current Visit: Yes Status: Acute Code(s): G40.909 - EPILEPSY, UNSP, NOT INTRACTABLE, WITHOUT STATUS EPILEPTICUS SNOMED Code(s): 774420520 (4) Alcoholic hepatitis Current Visit: No Status: Acute Code(s): K70.10 - ALCOHOLIC HEPATITIS WITHOUT ASCITES SNOMED Code(s): 294224071 (5) ETOH abuse Current Visit: No Status: Acute Code(s): F10.10 - ALCOHOL ABUSE, UNCOMPLICATED SNOMED Code(s): 03727662 Plan: This patient is a 27-year-old right-handed white female who is seen today in the intensive care unit as follow-up for alcohol withdrawal seizures. Patient was recovering from alcohol abuse and was at [place] [facility] when she was found to be obtunded with multiple breakthrough seizures. She has a history of underlying seizure disorder and is taking Keppra. Her Keppra blood level is still pending today. She was intubated in the ER and transferred to the intensive care unit where she has been closely monitored for the last several days. A sedation holiday was tried today but she failed. She is back on the ventilator with Diprivan at a setting of 50 g per hour. The patient remains sedated. Computed tomography scan of the brain failed to reveal any acute changes. She is afebrile. We will await the results of her Keppra level and adjust her dose as needed. Her overall prognosis at this time remains very guarded. We will continue close neurological follow-up of this patient in the intensive care unit.
--- NOTE | 2018-05-27 09:56 | P.CONS ---
History of Present Illness - Reason for Consult Consult date: 05/27/18 pancytopenia - History of Present Illness The patient is a 27-year-old lady, with an ongoing history of heavy alcohol use. The patient has had multiple admissions for alcohol toxicity. She was currently resident at [facility] as she was trying to quit. However she developed symptoms of withdrawal for which she was brought to the hospital. Due to progressive symptoms, the patient was intubated. Her CBC showed pancytopenia, with hemoglobin 7.1, WBC 3, and platelets 101. The patient was admitted in 03/31 for alcohol toxicity, and was noted to have pancytopenia at that time too, with W BC and platelets actually worse than the current admission. Hemoglobin on admission was 10 but had declined into the 8 range at the time of discharge. The patient is intubated and is unable to provide any history. Therefore history, and review of systems is obtained from nursing, as well as from the EMR. The patient is currently on her menstrual period. No other obvious bleeding has been noted. Review of Systems Obtained from nursing and EMR. Therefore somewhat limited Constitutional: Reports poor appetite, Reports weakness Eyes: denies blurred vision, denies pain Ears: deny: decreased hearing, ear discharge, earache, tinnitus Ears, nose, mouth and throat: Denies headache, Denies sore throat Cardiovascular: Reports decreased exercise tolerance Respiratory: Denies cough Gastrointestinal: Reports abdominal pain, Reports nausea Genitourinary: Denies dysuria, Denies hematuria Menstruation: Reports currently menstrual Musculoskeletal: Denies myalgias Integumentary: Denies pruritus, Denies rash Neurological: Reports as per HPI Psychiatric: Reports as per HPI, Reports anxiety Endocrine: Denies fatigue, Denies weight change Hematologic/Lymphatic: Reports as per HPI Past Medical History Past Medical History: Seizure Disorder Additional Past Medical History / Comment(s): Past obstetrical history significant for 1 section for failure to progress. History of Any Multi-Drug Resistant Organisms: None Reported Past Surgical History: Section, Orthopedic Surgery Additional Past Surgical History / Comment(s): 2 rt foot sx in past Past Anesthesia/Blood Transfusion Reactions: Motion Sickness Smoking Status: Former smoker - Past Family History Father Family Medical History: No Reported History Mother Family Medical History: No Reported History Medications and Allergies Home Medications Medication Instructions Recorded Confirmed Type levETIRAcetam [Keppra] 750 mg PO BID 03/29/18 05/24/18 History Allergies Allergy/AdvReac Type Severity Reaction Status Date / Time Penicillins Allergy Unknown Verified 05/24/18 08:01 Physical Exam Vitals: Vital Signs Temp Pulse Resp BP Pulse Ox 05/27/18 08:00 97 F L 73 19 111/59 100 05/27/18 07:43 19 05/27/18 07:00 82 19 109/53 99 05/27/18 06:00 84 20 107/58 100 05/27/18 05:00 96 20 109/66 100 05/27/18 04:00 99.0 F 93 20 111/64 100 05/27/18 03:00 73 20 103/52 100 05/27/18 02:00 85 20 97/48 100 05/27/18 01:00 107 H 20 113/60 100 05/27/18 00:00 99.3 F 97 20 106/64 100 05/26/18 23:00 82 20 97/58 99 05/26/18 22:00 80 20 101/61 100 05/26/18 21:00 79 20 99/56 99 05/26/18 20:00 98.4 F 73 20 96/55 99 05/26/18 19:00 85 20 97/59 100 05/26/18 18:00 74 19 103/56 99 05/26/18 17:00 81 20 95/52 98 05/26/18 16:00 98 F 78 19 99/56 98 05/26/18 15:41 21 05/26/18 15:00 92 21 101/52 100 05/26/18 14:00 68 20 105/65 99 05/26/18 13:00 71 20 98/54 98 05/26/18 12:00 99 F 80 20 102/59 99 05/26/18 11:09 20 05/26/18 11:00 85 20 105/58 100 05/26/18 10:00 93 19 101/52 99 Intake and Output 05/26/18 05/27/18 05/27/18 22:59 06:59 14:59 Intake Total 1250 1611.583 616.003 Output Total 730 790 635 Balance 520 821.583 -18.997 Intake: IV 640 840 240 Magnesium Sulfate-D5w Pmx 200 1 gm In Dextrose/Water 1 100ml.bag @ 100 mls/hr IVPB Q1H CE Rx#: [id number] Sodium Chloride 0.9% 1, 600 600 225 000 ml @ 75 mls/hr IV . [id number] CE Rx#:[id number] fentaNYL (PF) 2,500 mcg 40 40 15 In Sodium Chloride 0.9% 200 ml @ 50 MCG/HR 5 mls/ hr IV .Q24H CE Rx#: [id number] Intake, IV Titration 300 431.583 202.003 Amount Midazolam HCl 100 mg In 100 100 100 Sodium Chloride 0.9% 80 ml @ 0.02 MG/KG/HR 1.7 mls/hr IV .Q24H CE Rx#: [id number] Propofol 1,000 mg In 200 100 102.003 Empty Bag 1 bag @ Titrate IV .Q0M CE Rx#: [id number] fentaNYL (PF) 2,500 mcg 231.583 In Sodium Chloride 0.9% 200 ml @ 50 MCG/HR 5 mls/ hr IV .Q24H CE Rx#: [id number] Tube Feeding 280 280 84 Other 30 60 90 Output: Urine 730 790 635 Other: Voiding Method Indwelling Catheter Indwelling Catheter Indwelling Catheter # Voids 1 1 Weight 89 kg intubated, but arousable - Constitutional General appearance: no acute distress - EENT Eyes: PERRLA ENT: normal oropharynx - Neck Thyroid: bilateral: normal size - Respiratory Respiratory: bilateral: CTA - Cardiovascular Rhythm: regular Heart sounds: normal: S1, S2 - Gastrointestinal General gastrointestinal: normal bowel sounds, soft - Integumentary Integumentary: normal - Neurologic Intubated on vent. Moving all 4 extremities with normal-appearing strength - Musculoskeletal Musculoskeletal: generalized weakness, strength equal bilaterally - Psychiatric Intubated, on vent. Sedated Results CBC & Chem 7: 05/27/18 03:05 05/27/18 05:58 Labs: Abnormal Lab Results - Last 24 Hours (Table) 05/26/18 05/27/18 05/27/18 Range/Units 12:11 03:05 03:05 WBC 3.0 L (3.8-10.6) k/uL RBC 2.36 L (3.80-5.40) m/uL Hgb 7.1 L (11.4-16.0) gm/dL Hct 21.9 L (34.0-46.0) % Plt Count 101 L D (150-450) k/uL Lymphocytes # 0.4 L (1.0-4.8) k/uL ABG pO2 (83-108) mmHg ABG Total CO2 (19-24) mmol/L ABG O2 Saturation (94-97) % BUN 4 L (7-17) mg/dL Creatinine 0.43 L (0.52-1.04) mg/dL POC Glucose (mg/dL) 107 H (75-99) mg/dL Calcium 8.3 L (8.4-10.2) mg/dL AST 90 H (14-36) U/L ALT 90 H (9-52) U/L Total Protein 5.8 L (6.3-8.2) g/dL Albumin 3.0 L (3.5-5.0) g/dL 05/27/18 05/27/18 Range/Units 05:04 05:55 WBC (3.8-10.6) k/uL RBC (3.80-5.40) m/uL Hgb (11.4-16.0) gm/dL Hct (34.0-46.0) % Plt Count (150-450) k/uL Lymphocytes # (1.0-4.8) k/uL ABG pO2 118 H (83-108) mmHg ABG Total CO2 26 H (19-24) mmol/L ABG O2 Saturation 99.5 H (94-97) % BUN (7-17) mg/dL Creatinine (0.52-1.04) mg/dL POC Glucose (mg/dL) 115 H (75-99) mg/dL Calcium (8.4-10.2) mg/dL AST (14-36) U/L ALT (9-52) U/L Total Protein (6.3-8.2) g/dL Albumin (3.5-5.0) g/dL Microbiology - Last 24 Hours (Table) 05/25/18 01:16 Gram Stain - Final Sputum Sputum Culture - Final Comments: Pelvic ultrasound report reviewed. Chest x-ray: report reviewed CT Scan - head: report reviewed US - abdomen: report reviewed MRI - abdomen: report reviewed Assessment and Plan (1) Pancytopenia Narrative/Plan: This was present even during her previous admission and 03/31. Actually degree of leukopenia and thrombo-cytopenia is better this admission compared to last time. That is likely because the patient has been off alcohol for a few days at least. Hemoglobin is lower than the previous admission, but that could be due to the patient having active menstruation. - The patient's CT of the abdomen and pelvis confirmed diffuse fatty infiltration, as well as the spleen borderline-enlarged at 1.9 cm. - Therefore the etiology of the pancytopenia is most likely bone marrow suppression from alcohol. In this patient's case, additional stress due to alcohol withdrawal, as well as ongoing menstruation can also be contoured in. Given that the spleen is borderline in size, could also be an element of splenic sequestration. - WBC and platelets are in a safe range. They can be followed with monitoring. Transfuse PRBC to keep hemoglobin greater than 7. - Labs will be ordered to rule out any deficiency states, or other etiologies. - The patient will need follow-up after discharge to monitor for recovery of counts, assuming that she stays off the alcohol. Current Visit: Yes Status: Acute Code(s): D61.818 - OTHER PANCYTOPENIA SNOMED Code(s): 998889521 (2) Alcohol withdrawal Narrative/Plan: Patient currently being treated per protocol. She is intubated, but is being given sedation already. Defer to the admitting service and [facility] for continued management Current Visit: Yes Status: Acute Code(s): F10.239 - ALCOHOL DEPENDENCE WITH WITHDRAWAL, UNSPECIFIED SNOMED Code(s): 263437390
[2018-05-27] MEDS: THIAMINE 100 MG TAB PO SCH ×2 (12:06→17:28)
--- NOTE | 2018-05-27 12:08 | P.PN ---
Subjective On-call hospitalist covering for Dr. Muñiz This is a pleasant 27 years old female who was sent from [facility] for alcohol withdrawal and delirium tremens. Patient was found to be educated that need. Intubation on 05/25/2018 as well as adding multiple sedatives including Versed, propofol and fentanyl drips, her down. Patient has low hemoglobin of 6.9 and 7.4. Her labs from 2 months ago showing low aren't at 46 with low TIBC which shows more towards anemia of chronic disease. Iron saturation is within normal limits at 20. ferritin is within normal limits at 126. Patient has reactive hepatitis BS antibody. Her liver enzymes are trending down. B12 level more than 1000 and folate is within normal limits. 05/27/2018 Patient is still in ICU, intubated and on so that the implant and Versed, fentanyl and propofol. Patient got easily agitated and follow commands when the sedatives are low doses alert. Head CT was negative as per neurology recommendation. Patient continued to be on Keppra. Check level. Repeat chest x-ray from today shows cardiomegaly. Hematology evaluation is appreciated should most likely pancytopenia is up from heavy alcohol intoxication. As per staff patient was drinking about 1 pint per day. Liver enzymes are trending down Review of systems could not be done because pt is sedated medication reviewed: Cipro 500 mg, fentanyl 250 ml, peridex 15 ml, Keppra 750 mg, ativan as per [facility] protocol , midazolam 100 mg, morphine sulfate 2 mg, protonix 40 mg, scopolamine patch, normal saline at 75 ml/h, thiamin 100 mg Objective - Vital Signs Vital signs: Vital Signs Temp 97 F L 05/27/18 08:00 Pulse 84 05/27/18 11:00 Resp 21 05/27/18 11:00 BP 113/56 05/27/18 11:00 Pulse Ox 100 05/27/18 11:00 Intake & Output 05/26/18 05/27/18 05/27/18 18:59 06:59 18:59 Intake Total 1870.107 5173.583 732.003 Output Total 5817 646 6521 Balance 926.809 8920.583 -302.997 Weight 89 kg Intake: IV 1040 1080 400 Magnesium Sulfate-D5w Pmx 200 1 gm In Dextrose/Water 1 100ml.bag @ 100 mls/hr IVPB Q1H CE Rx#: [id number] Sodium Chloride 0.9% 1, 975 825 375 000 ml @ 75 mls/hr IV . [id number] CE Rx#:[id number] fentaNYL (PF) 2,500 mcg 65 55 25 In Sodium Chloride 0.9% 200 ml @ 50 MCG/HR 5 mls/ hr IV .Q24H CE Rx#: [id number] Intake, IV Titration 379.118 631.583 102.003 Amount Midazolam HCl 100 mg In 100.000 200 Sodium Chloride 0.9% 80 ml @ 0.02 MG/KG/HR 1.7 mls/hr IV .Q24H CE Rx#: [id number] Propofol 1,000 mg In 279.118 200 102.003 Empty Bag 1 bag @ Titrate IV .Q0M CE Rx#: [id number] fentaNYL (PF) 2,500 mcg 231.583 In Sodium Chloride 0.9% 200 ml @ 50 MCG/HR 5 mls/ hr IV .Q24H CE Rx#: [id number] Tube Feeding 356 420 140 Other 210 60 90 Output: Urine 5734 997 1109 Other: Voiding Method Indwelling Catheter Indwelling Catheter Indwelling Catheter # Voids 1 1 # Bowel Movements 0 - Exam -GENERAL: The patient is intubated and sedated, not in any acute distress. Well developed, well nourished. HEENT: Pupils are round and equally reacting to light. EOMI. No scleral icterus. No conjunctival pallor. Normocephalic, atraumatic. No pharyngeal erythema. No thyromegaly. CARDIOVASCULAR: S1 and S2 present. No murmurs, rubs, or gallops. PULMONARY: Chest is clear to auscultation, no wheezing or crackles. ABDOMEN: Soft, nontender, nondistended, normoactive bowel sounds. No palpable organomegaly. MUSCULOSKELETAL: No joint swelling or deformity. EXTREMITIES: No cyanosis, clubbing, or pedal edema. NEUROLOGICAL: Gross neurological examination did not reveal any focal deficits. SKIN: No rashes. - Labs CBC & Chem 7: 05/27/18 03:05 05/27/18 05:58 Labs: Abnormal Lab Results - Last 24 Hours (Table) 05/26/18 05/27/18 05/27/18 Range/Units 12:11 03:05 03:05 WBC 3.0 L (3.8-10.6) k/uL RBC 2.36 L (3.80-5.40) m/uL Hgb 7.1 L (11.4-16.0) gm/dL Hct 21.9 L (34.0-46.0) % Plt Count 101 L D (150-450) k/uL Lymphocytes # 0.4 L (1.0-4.8) k/uL ABG pO2 (83-108) mmHg ABG Total CO2 (19-24) mmol/L ABG O2 Saturation (94-97) % BUN 4 L (7-17) mg/dL Creatinine 0.43 L (0.52-1.04) mg/dL POC Glucose (mg/dL) 107 H (75-99) mg/dL Calcium 8.3 L (8.4-10.2) mg/dL AST 90 H (14-36) U/L ALT 90 H (9-52) U/L Total Protein 5.8 L (6.3-8.2) g/dL Albumin 3.0 L (3.5-5.0) g/dL 05/27/18 05/27/18 Range/Units 05:04 05:55 WBC (3.8-10.6) k/uL RBC (3.80-5.40) m/uL Hgb (11.4-16.0) gm/dL Hct (34.0-46.0) % Plt Count (150-450) k/uL Lymphocytes # (1.0-4.8) k/uL ABG pO2 118 H (83-108) mmHg ABG Total CO2 26 H (19-24) mmol/L ABG O2 Saturation 99.5 H (94-97) % BUN (7-17) mg/dL Creatinine (0.52-1.04) mg/dL POC Glucose (mg/dL) 115 H (75-99) mg/dL Calcium (8.4-10.2) mg/dL AST (14-36) U/L ALT (9-52) U/L Total Protein (6.3-8.2) g/dL Albumin (3.5-5.0) g/dL Microbiology - Last 24 Hours (Table) 05/25/18 01:16 Gram Stain - Final Sputum Sputum Culture - Final Assessment and Plan Assessment: Acute alcohol withdrawal and delirium tremens Confusion and unable to protect her airway secondary to above, status post intubation History of alcohol withdrawal seizure UTI Chronic alcoholic liver disease Chronic Pancytopenia , secondary to alcoholism Plan: This is a pleasant 27 years old female who presents because of alcohol withdrawal and delirium tremens that needed intubation. Labs and medication refills. Continue with same treatment. Continue with symptomatic treatment. Monitor lytes and vitals. Pulmonary/critical care unit team were consulted. Neurology has been called for her history of seizure. Patient with pancytopenia and recommend hematology team to see patient. DVT prophylaxis. Further recommendations of the clinical course of the patient DVT prophylaxis: Heparin GI prophylaxis: Protonix prognosis is guarded
--- NOTE | 2018-05-27 13:17 | P.PN ---
Subjective Progress Note Date: 05/27/18 Principal diagnosis: Acute alcohol withdrawal/delirium tremens This is a 27-year-old female patient who follows with Dr. Salazar as her primary care physician. She has a history of alcoholism and alcoholic seizures from withdrawal in the past. She was on Keppra in the outpatient setting. She was recently admitted to [facility] and her last drink was approximately 48 hours ago. While there she was having altered mental status and hallucinations and EMS was called and she was transported here for the same. She was treated with Ativan and Haldol thus far. Mr. hernández was required to be called on her while on the selective care unit. She was subsequently transferred here to the intensive care unit and we are consulted for the same. Presently she is awake, agitated, hallucinating. Disoriented to place and time. Somewhat combative and trying to climb out of bed. The CIWA protocol is in place. She has received another 2 mg of Ativan. She has had a T -max of 100.3. She is tachycardic. Urinalysis cloudy and positive for moderate amount of leukocytes, WBCs, ketones, protein. Urine drug screen positive for benzodiazepines. AST 237, ALT 144, alk phos 128, total creatinine kinase 924. White count 3.0. Hemoglobin 8.6. Platelet count 69,000. Computed tomography scan of the brain revealed no acute intracranial hemorrhage, mass effect or midline shift. Chest x-ray reveals no acute pulmonary process. Patient was reevaluated today on 05/25/2018, after transfer to the ICU, and in spite of significant amount of Ativan given to the patient, she continued to have significant agitation, and took at least 3 or 4 people to calm her down. I was notified about the extreme agitation of the patient, hence I recommended intubation and recommended sedation using propofol. Patient continues to have extreme agitation even on a high dose of propofol, hence I added Versed, and she remained agitated in spite of propofol and Versed on board. Then we added fentanyl 50 g per hour. The patient is now on mechanical ventilation, on 50 g of propofol, 5 mg per hour of Versed, and 50 mcg/h of fentanyl. That seems to be calming the patient down enough that she doesn't extubate herself, and does not harm herself. No paralytics were used, we will try to avoid paralytic agents as much as possible. Her ventilator settings at present are tidal volume of 400, FiO2 of 40%, assist control rate of 20, and PEEP at 5. ABG showed a pO2 of 176 pCO2 of 36 pH of 7.47. CBC showed WBC count of 3.6 hemoglobin of 7.8. Electrolytes are normal except for a low potassium of 3.3 being corrected. Liver enzymes/transaminases are trending down. Her urine is suggestive of urinary tract infection there is evidence of pyuria, bacteriuria, and positive leukocyte esterase. Patient is already on antibiotics. Culture is pending. Chest x-ray showed no evidence of active disease. Adequate placement of the endotracheal tube and orogastric tube. Nutritional support will be initiated today. Via enteral feeding. Reevaluated today on 05/26/2018, remains in the ICU on mechanical ventilation, ventilator settings were reviewed, and they are basically unchanged however the FiO2 was decreased down to 30%. Tidal volume is 400 assist control rate of 20 PEEP is 5. ABG was reviewed, chest x-ray was reviewed, both are relatively unremarkable. Labs were reviewed, she has a hemoglobin of 7.4, it was 6.9 yesterday. Seems to be consistent with iron deficiency anemia. Platelets are low at 59,000. Related to her chronic alcohol liver disease. ABG showed a pO2 of 161 pCO2 of 36 pH of 7.43. Patient remains on propofol, fentanyl, and Versed drip. Doses are being adjusted however she is mostly on 50 mcg/kg/m of propofol, 5 mg per hour of Versed and 50 mcg/h of fentanyl. Propofol was placed on hold, and were able to assess her mental status, patient is following instructions, but she gets easily agitated, tachycardic, tachypneic, even with minimal decrease in the amount of sedation. Hence I have no plans to extubate the patient today. Patient was reevaluated today on 05/27/2018, remains in the intensive care unit , on mechanical ventilation, her ventilator settings are basically the same as noted above, her FiO2 was decreased down to 28%. Chest x-ray today showed mostly atelectasis at the bases. ABG showed a pO2 of 118 pCO2 of 38 pH of 7.42. CBC continues to show pancytopenia with low WBC count, low hemoglobin, and low platelets. Seen by hematology on consultation, felt to have bone marrow suppression from alcohol. And additional stress from alcohol withdrawal. Ongoing menstruation is another factor to her anemia. Patient remains on multiple meds for sedation including propofol at 50 mcg/kg/m, Versed was earlier at 10 mg per hour, and she remains on fentanyl 50 g per hour. Objective - Vital Signs Vital signs: Vital Signs Temp 99 F 05/27/18 12:00 Pulse 76 05/27/18 13:00 Resp 20 05/27/18 13:00 BP 110/66 05/27/18 13:00 Pulse Ox 100 05/27/18 13:00 Intake & Output 05/26/18 05/27/18 05/27/18 18:59 06:59 18:59 Intake Total 1105.420 6142.583 1067.448 Output Total 2084 639 4692 Balance 089.840 7375.583 -382.552 Weight 89 kg Intake: IV 1040 1080 560 Magnesium Sulfate-D5w Pmx 200 1 gm In Dextrose/Water 1 100ml.bag @ 100 mls/hr IVPB Q1H CE Rx#: [id number] Sodium Chloride 0.9% 1, 975 825 525 000 ml @ 75 mls/hr IV . [id number] CE Rx#:[id number] fentaNYL (PF) 2,500 mcg 65 55 35 In Sodium Chloride 0.9% 200 ml @ 50 MCG/HR 5 mls/ hr IV .Q24H CE Rx#: [id number] Intake, IV Titration 379.118 631.583 191.448 Amount Midazolam HCl 100 mg In 100.000 200 Sodium Chloride 0.9% 80 ml @ 0.02 MG/KG/HR 1.7 mls/hr IV .Q24H CE Rx#: [id number] Propofol 1,000 mg In 279.118 200 191.448 Empty Bag 1 bag @ Titrate IV .Q0M CE Rx#: [id number] fentaNYL (PF) 2,500 mcg 231.583 In Sodium Chloride 0.9% 200 ml @ 50 MCG/HR 5 mls/ hr IV .Q24H CE Rx#: [id number] Tube Feeding 356 420 196 Other 210 60 120 Output: Urine 8583 603 1963 Other: Voiding Method Indwelling Catheter Indwelling Catheter Indwelling Catheter # Voids 1 1 # Bowel Movements 0 - Exam Physical Exam: Revealed a 27-year-old female on mechanical ventilation, sedated , in no distress. And to give the patient a sedation holiday today, just before we transfer to the [facility]. Suggested holding Versed to evaluate and assess mental status. Head: Atraumatic, normocephalic. HEENT:[Neck is supple.] [No neck masses.] [No thyromegaly.] [No JVD.] PERRLA, EOMI, no icterus. Chest: [Clear throughout, no crackles, no rhonchi, no wheezes.] Cardiac Exam: [Normal S1 and S2, no S3 gallop, no murmur.] Abdomen: [Obese, Soft, nontender, no megaly, no rebound, no guarding, normal bowel sounds.] Extremities: [No clubbing, no edema, no cyanosis.] Good pulses bilaterally. Neurological Exam: Could not be assessed, patient is heavily sedated. Nurses were instructed to hold sedation and assessment of status. Lymphatics: No lymphadenopathy. Psychiatric: Could not be assessed because of sedation. - Labs CBC & Chem 7: 05/27/18 03:05 05/27/18 05:58 Labs: Abnormal Lab Results - Last 24 Hours (Table) 05/27/18 05/27/18 05/27/18 Range/Units 03:05 03:05 05:04 WBC 3.0 L (3.8-10.6) k/uL RBC 2.36 L (3.80-5.40) m/uL Hgb 7.1 L (11.4-16.0) gm/dL Hct 21.9 L (34.0-46.0) % Plt Count 101 L D (150-450) k/uL Lymphocytes # 0.4 L (1.0-4.8) k/uL ABG pO2 118 H (83-108) mmHg ABG Total CO2 26 H (19-24) mmol/L ABG O2 Saturation 99.5 H (94-97) % BUN 4 L (7-17) mg/dL Creatinine 0.43 L (0.52-1.04) mg/dL POC Glucose (mg/dL) (75-99) mg/dL Calcium 8.3 L (8.4-10.2) mg/dL AST 90 H (14-36) U/L ALT 90 H (9-52) U/L Total Protein 5.8 L (6.3-8.2) g/dL Albumin 3.0 L (3.5-5.0) g/dL 05/27/18 Range/Units 05:55 WBC (3.8-10.6) k/uL RBC (3.80-5.40) m/uL Hgb (11.4-16.0) gm/dL Hct (34.0-46.0) % Plt Count (150-450) k/uL Lymphocytes # (1.0-4.8) k/uL ABG pO2 (83-108) mmHg ABG Total CO2 (19-24) mmol/L ABG O2 Saturation (94-97) % BUN (7-17) mg/dL Creatinine (0.52-1.04) mg/dL POC Glucose (mg/dL) 115 H (75-99) mg/dL Calcium (8.4-10.2) mg/dL AST (14-36) U/L ALT (9-52) U/L Total Protein (6.3-8.2) g/dL Albumin (3.5-5.0) g/dL Microbiology - Last 24 Hours (Table) 05/25/18 01:16 Gram Stain - Final Sputum Sputum Culture - Final Assessment and Plan Assessment: Impression: 1 acute hypoxic respiratory failure secondary to acute alcohol withdrawal and delirium tremens. 2 alcohol liver disease 3 pancytopenia secondary to underlying liver disease, bone marrow suppression, evaluated by hematology. We'll continue to monitor. 4 acute urinary tract infection cultures are nondiagnostic, was mostly skin and gentle sushant. 5 history of alcohol withdrawal seizures 6 elevated liver enzymes secondary to chronic history of alcohol abuse and alcohol liver disease. Recommendation: We plan to assess mental status today, we will hold sedation and evaluate, very likely that the patient will not be able to be extubated today, she gets extremely agitated as soon as the sedation wears off. I believe the patient will need a few more days of detox medication before we can easily wean off sedation and extubate. In the meantime we will continue nutritional support, ventilatory support, GI and DVT prophylaxis, monitor her abnormal CBC and pancytopenia, continue precautions for alcohol withdrawal at all times. Patient remains critically ill, and not quite ready for extubation at this point. We will continue to follow. Critical care time is 32 minutes. Time with Patient: Greater than 30
[2018-05-27 18:25] LABS: Glucose,Whole Blood 119 mg/dL (75-99)
[2018-05-28] MEDS: ARTIFICIAL TEARS-HYPROMELLOSE DROPS 15 ML BTL BOTH EYES SCH ×3 (00:22→08:46)
[2018-05-28] MEDS: MIDAZOLAM HCL 100 MG in SODIUM CHLORIDE 0.9% 80 ML IV SCH (00:51)
[2018-05-28] MEDS: PROPOFOL 1,000 MG in EMPTY BAG 1 BAG IV SCH ×2 (01:33→04:49)
[2018-05-28] MEDS: SCOPOLAMINE 1.5MG/72HR PATCH TRANSDERM SCH (01:33)
[2018-05-28 01:53] LABS: Glucose,Whole Blood 75 mg/dL (75-99)
[2018-05-28 06:07] LABS: HCT 27.4 % (34.0-46.0); HGB 8.3 gm/dL (11.4-16.0); Hypochromasia Marked; MCH 29.1 pg (25.0-35.0); MCHC 30.3 g/dL (31.0-37.0); Mean Platelet Volume 9.6; Platelet Count 142 k/uL (150-450); RBC 2.85 m/uL (3.80-5.40); RDW 14.9 % (11.5-15.5); WBC 3.1 k/uL (3.8-10.6)
[2018-05-28 06:08] LABS: Anion Gap 9 mmol/L; Blood Urea Nitrogen 5 mg/dL (7-17); Calcium 8.7 mg/dL (8.4-10.2); Carbon Dioxide 22 mmol/L (22-30); Chloride 106 mmol/L (98-107); Glucose 92 mg/dL (74-99); Phosphorus 5.4 mg/dL (2.5-4.5); Potassium 4.4 mmol/L (3.5-5.1); Sodium 137 mmol/L (137-145)
[2018-05-28 06:28] LABS: Eosinophils # (M) 0.12 k/uL (0-0.7); Lymphocytes # (M) 0.47 k/uL (1.0-4.8); Monocytes # (M) 0.74 k/uL (0-1.0); Neutrophils # (M) 1.77 k/uL (1.3-7.7); Neutrophils % (M) 57 %; Nucleated Red Blood Cells 0 /100 WBC (0-0); Total Cells Counted 100
[2018-05-28 06:29] LABS: Large Platelets Present
[2018-05-28 07:07] LABS: Glucose,Whole Blood 107 mg/dL (75-99)
[2018-05-28 07:53] LABS: ABG Base Excess -0.3 mmol/L; ABG HCO3 24 mmol/L (21-25); ABG PCO2 35 mmHg (35-45); ABG PH 7.44 (7.35-7.45); ABG PO2 159 mmHg (83-108); ABG TCO2 25 mmol/L (19-24)
--- NOTE | 2018-05-28 08:04 | XR ---
EXAMINATION TYPE: XR chest 1V portable DATE OF EXAM: 05/28/2018 Comparison: 05/27/2018 Clinical History: 27-year-old female Tube placement Findings: ET tube tip satisfactory. NG tube courses below the diaphragm. Heart normal size. Patient rotated tow ards the right altering the normal cardiomediastinal contours. There is some patchy lower lung opacit ies which persist and some strandy atelectasis at the left base. Heart upper limits of normal in size possibly accentuated due to portable technique.. Impression: Redemonstrated patchy lower lung opacities that could represent atelectasis or early infiltrates.
[2018-05-28] MEDS: CHLORHEXIDINE GLUCONATE 15 ML CUP MUCOUS MEM SCH (08:46)
[2018-05-28] MEDS: SODIUM CHLORIDE 0.9% 1,000 ML IV SCH (08:47)
[2018-05-28] MEDS: PANTOPRAZOLE 40 MG/10 ML VIAL IVP SCH (08:48)
[2018-05-28] MEDS: METOPROLOL TARTRATE 25 MG TAB PO SCH ×3 (08:53→21:08)
[2018-05-28] MEDS: CIPROFLOXACIN HCL 500 MG TAB PO SCH (08:54)
--- NOTE | 2018-05-28 09:04 | P.PN ---
Subjective Progress Note Date: 05/28/18 Principal diagnosis: Respiratory failure Progress note dated 05/28/2018 This is a 27-year-old female with acute hypoxemic respiratory failure secondary to acute alcohol withdrawal syndrome and delirium tremens. 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 Currently, the patient is sedated. We are going to do a daily interruption of sedation. Currently, her vent settings include the volume assist control mode, rate of 20, tidal volume of 400, FiO2 28% PEEP of 5. Arterial blood gases have not yet been done. Chest x-ray is normal. She is on propofol at 50 mics per kilogram per minute, fentanyl drip at 50 g per hour of Versed drip and saline at 75 mL an hour. She is also receiving vital AF at 28 with a goal of 28 mL. The patient was admitted on May 24 with alcohol withdrawal symptoms and delirium tremens and intubated on the . Objective - Vital Signs Vital signs: Vital Signs Temp 99.4 F 05/28/18 08:00 Pulse 75 05/28/18 08:00 Resp 14 05/28/18 08:00 BP 103/69 05/28/18 08:00 Pulse Ox 100 05/28/18 08:00 Intake & Output 05/27/18 05/28/18 05/28/18 18:59 06:59 18:59 Intake Total 1444.101 9336.575 188 Output Total 2570 1080 105 Balance -775.957 651.575 83 Weight 89.8 kg Intake: IV 960 960 160 Sodium Chloride 0.9% 1, 900 900 150 000 ml @ 75 mls/hr IV . [id number] CE Rx#:[id number] fentaNYL (PF) 2,500 mcg 60 60 10 In Sodium Chloride 0.9% 200 ml @ 50 MCG/HR 5 mls/ hr IV .Q24H CE Rx#: [id number] Intake, IV Titration 518.043 433.575 Amount Midazolam HCl 100 mg In 93 95.5 Sodium Chloride 0.9% 80 ml @ 0.02 MG/KG/HR 1.7 mls/hr IV .Q24H CE Rx#: [id number] Propofol 1,000 mg In 356.543 338.075 Empty Bag 1 bag @ Titrate IV .Q0M CE Rx#: [id number] fentaNYL (PF) 2,500 mcg 68.5 In Sodium Chloride 0.9% 200 ml @ 50 MCG/HR 5 mls/ hr IV .Q24H CE Rx#: [id number] Tube Feeding 196 308 28 Other 120 30 Output: Urine 2570 1080 105 Other: Voiding Method Indwelling Catheter Indwelling Catheter # Voids 1 - Exam No acute distress, sedated, orally placed endotracheal tube and NG tube. HEENT examination is grossly unremarkable. Mucous membranes are moist. Neck supple. Full range of motion. No adenopathy thyromegaly or neck vein distention. Cardiovascular examination reveals regular rhythm rate. S1-S2 normal. No S3 or S4. No discernible murmur noted. Lungs reveal coarse bilateral rhonchi. Breath sounds equal bilaterally. No wheezes. No crackles. Abdomen soft bowel sounds are heard. No masses or tenderness. Extremities are intact. No cyanosis clubbing or edema. Skin is without rash or lesion. Neurologic examination could not be adequately assessed as the patient is currently heavily sedated on propofol, fentanyl and Versed. - Labs CBC & Chem 7: 05/28/18 05:46 05/28/18 05:46 Labs: Abnormal Lab Results - Last 24 Hours (Table) 05/27/18 05/28/18 05/28/18 Range/Units 18:13 05:46 05:46 WBC 3.1 L (3.8-10.6) k/uL RBC 2.85 L (3.80-5.40) m/uL Hgb 8.3 L (11.4-16.0) gm/dL Hct 27.4 L (34.0-46.0) % MCHC 30.3 L (31.0-37.0) g/dL Plt Count 142 L (150-450) k/uL Lymphocytes # (Manual) 0.47 L (1.0-4.8) k/uL BUN 5 L (7-17) mg/dL Creatinine 0.43 L (0.52-1.04) mg/dL POC Glucose (mg/dL) 119 H (75-99) mg/dL Phosphorus 5.4 H (2.5-4.5) mg/dL 05/28/18 Range/Units 07:03 WBC (3.8-10.6) k/uL RBC (3.80-5.40) m/uL Hgb (11.4-16.0) gm/dL Hct (34.0-46.0) % MCHC (31.0-37.0) g/dL Plt Count (150-450) k/uL Lymphocytes # (Manual) (1.0-4.8) k/uL BUN (7-17) mg/dL Creatinine (0.52-1.04) mg/dL POC Glucose (mg/dL) 107 H (75-99) mg/dL Phosphorus (2.5-4.5) mg/dL Microbiology - Last 24 Hours (Table) 05/25/18 01:16 Gram Stain - Final Sputum Sputum Culture - Final Assessment and Plan Assessment: Assessment Acute hypoxemic respiratory failure, with intubation on May 24, secondary to acute alcohol withdrawal and delirium tremens Alcoholic liver disease Alcohol involvement of bone marrow with pancytopenia Acute urinary tract infection History of alcohol withdrawal seizures Elevated liver enzymes secondary to alcoholic liver disease Failure to wean from mechanical ventilation Plan: Plan dated 05/28/2018 The patient will get a daily interruption of sedation with a spontaneous breathing trial. We will stop or wean the propofol, fentanyl, and Versed. Apparently, when she received a daily interruption of sedation, she was alert and oriented. Attempt will be made at trying to extubate her today. Labs x- rays and medications are all reviewed. Chest x-ray looked excellent. Microbiology is negative. White count 3.1 hemoglobin 8.3 hematocrit 27.4 and platelet count 142,000. Sodium 137 potassium 4.4 chloride 106 CO2 22 a 90 abnormal with a BUN of 5 and a creatinine of 0.43. Prognosis is guarded. Critical care time 33 minutes Time with Patient: Greater than 30
[2018-05-28] MEDS: LORazepam 2 MG/ML INJ IV PRN (10:13)
[2018-05-28] MEDS: fentaNYL (PF) 2,500 MCG in SODIUM CHLORIDE 0.9% 200 ML IV SCH (10:43)
[2018-05-28 11:43] LABS: Iron Saturation 6.04 (12.00-45.00); Protein, Total 6.2 g/dL (6.2-8.2)
[2018-05-28 12:08] LABS: Glucose,Whole Blood 111 mg/dL (75-99)
[2018-05-28] MEDS ORDERED: ONDANSETRON 4 MG/2 ML VIAL IVP PRN (12:27)
[2018-05-28] MEDS ORDERED: ACETAMINOPHEN IV (For NPO) 1,000 MG in EMPTY BAG 1 BAG IVPB ONE (12:33)
[2018-05-28] MEDS: LIDOCAINE 2% (PF) 20 MG/ML 2 ML AMP INHALATION ONE ×2 (14:10→21:28)
[2018-05-28] MEDS: RACEPINEPHRINE 2.25% NEB 0.5 ML NEBU INHALATION STA ×2 (14:10→21:28)
[2018-05-28] MEDS: DEXAMETHASONE SOD PHOSPHATE 10 MG/ML 1 ML VIAL IV SCH ×2 (14:24→17:24)
[2018-05-28] MEDS: THIAMINE 100 MG TAB PO SCH ×2 (15:26→17:26)
[2018-05-28 15:42] LABS: Reticulocyte % 1.6 % (0.5-2.0)
[2018-05-28] MEDS ORDERED: ACETAMINOPHEN IV (For NPO) 1,000 MG in EMPTY BAG 1 BAG IVPB PRN (17:47)
[2018-05-28 18:34] LABS: Glucose,Whole Blood 131 mg/dL (75-99)
--- NOTE | 2018-05-28 19:42 | P.PN ---
Subjective On-call hospitalist covering for Dr. Muñiz This is a pleasant 27 years old female who was sent from [place] for alcohol withdrawal and delirium tremens. Patient was found to be educated that need. Intubation on 05/25/2018 as well as adding multiple sedatives including Versed, propofol and fentanyl drips, her down. Patient has low hemoglobin of 6.9 and 7.4. Her labs from 2 months ago showing low aren't at 46 with low TIBC which shows more towards anemia of chronic disease. Iron saturation is within normal limits at 20. ferritin is within normal limits at 126. Patient has reactive hepatitis BS antibody. Her liver enzymes are trending down. B12 level more than 1000 and folate is within normal limits. 05/27/2018 Patient is still in ICU, intubated and on so that the implant and Versed, fentanyl and propofol. Patient got easily agitated and follow commands when the sedatives are low doses alert. Head CT was negative as per neurology recommendation. Patient continued to be on Keppra. Check level. Repeat chest x-ray from today shows cardiomegaly. Hematology evaluation is appreciated should most likely pancytopenia is up from heavy alcohol intoxication. As per staff patient was drinking about 1 pint per day. Liver enzymes are trending down 05/28/2018 Patient got extubated today, she looks calm. She has some heart problems and she looks tired. The patient didn't complain of any specific signs and symptoms. No chest pain. No dyspnea. No change in urine bowel habits. No nausea vomiting. No shakiness or trauma. No fever.patient was started on the Review of systems could not be done because pt was started medication reviewed: Cipro 500 mg, fentanyl 250 ml, peridex 15 ml, Keppra 750 mg, ativan as per [facility] protocol , midazolam 100 mg, morphine sulfate 2 mg, protonix 40 mg, scopolamine patch, normal saline at 75 ml/h, thiamin 100 mg. She is continued to be on Cipro on Keppra.pancytopenia but looks his stable mostly due to alcohol effect. Objective - Vital Signs Vital signs: Vital Signs Temp 100.7 F H 05/28/18 16:00 Pulse 105 H 05/28/18 19:00 Resp 20 05/28/18 19:00 BP 118/77 05/28/18 19:00 Pulse Ox 94 L 05/28/18 19:00 Intake & Output 05/28/18 05/28/18 05/29/18 06:59 18:59 06:59 Intake Total 4479.714 6686 Output Total 1080 2215 Balance 651.575 -1136 Weight 89.8 kg 89.8 kg Intake: IV 960 995 Sodium Chloride 0.9% 1, 900 975 000 ml @ 75 mls/hr IV . [id number] CE Rx#:[id number] fentaNYL (PF) 2,500 mcg 60 20 In Sodium Chloride 0.9% 200 ml @ 50 MCG/HR 5 mls/ hr IV .Q24H CE Rx#: [id number] Intake, IV Titration 433.575 Amount Midazolam HCl 100 mg In 95.5 Sodium Chloride 0.9% 80 ml @ 0.02 MG/KG/HR 1.7 mls/hr IV .Q24H CE Rx#: [id number] Propofol 1,000 mg In 338.075 Empty Bag 1 bag @ Titrate IV .Q0M CE Rx#: [id number] Tube Feeding 308 84 Other 30 Output: Urine 1080 2215 Other: Voiding Method Indwelling Catheter Indwelling Catheter - Exam -GENERAL: The patient is intubated and sedated, not in any acute distress. Well developed, well nourished. HEENT: Pupils are round and equally reacting to light. EOMI. No scleral icterus. No conjunctival pallor. Normocephalic, atraumatic. No pharyngeal erythema. No thyromegaly. CARDIOVASCULAR: S1 and S2 present. No murmurs, rubs, or gallops. PULMONARY: Chest is clear to auscultation, no wheezing or crackles. ABDOMEN: Soft, nontender, nondistended, normoactive bowel sounds. No palpable organomegaly. MUSCULOSKELETAL: No joint swelling or deformity. EXTREMITIES: No cyanosis, clubbing, or pedal edema. NEUROLOGICAL: Gross neurological examination did not reveal any focal deficits. SKIN: No rashes. - Labs CBC & Chem 7: 05/28/18 05:46 05/28/18 05:46 Labs: Abnormal Lab Results - Last 24 Hours (Table) 05/28/18 05/28/18 05/28/18 Range/Units 05:46 05:46 05:46 WBC 3.1 L (3.8-10.6) k/uL RBC 2.85 L (3.80-5.40) m/uL Hgb 8.3 L (11.4-16.0) gm/dL Hct 27.4 L (34.0-46.0) % MCHC 30.3 L (31.0-37.0) g/dL Plt Count 142 L (150-450) k/uL Lymphocytes # (Manual) 0.47 L (1.0-4.8) k/uL ABG pO2 (83-108) mmHg ABG Total CO2 (19-24) mmol/L ABG O2 Saturation (94-97) % BUN 5 L (7-17) mg/dL Creatinine 0.43 L (0.52-1.04) mg/dL POC Glucose (mg/dL) (75-99) mg/dL Phosphorus 5.4 H (2.5-4.5) mg/dL Iron 18 L (50-170) ug/dL Iron Saturation 6.04 L (12.00-45.00) [place] LC, Quant 2.11 H (0.33-1.94) mg/dL 05/28/18 05/28/18 05/28/18 Range/Units 07:03 07:24 12:05 WBC (3.8-10.6) k/uL RBC (3.80-5.40) m/uL Hgb (11.4-16.0) gm/dL Hct (34.0-46.0) % MCHC (31.0-37.0) g/dL Plt Count (150-450) k/uL Lymphocytes # (Manual) (1.0-4.8) k/uL ABG pO2 159 H (83-108) mmHg ABG Total CO2 25 H (19-24) mmol/L ABG O2 Saturation 100.0 H (94-97) % BUN (7-17) mg/dL Creatinine (0.52-1.04) mg/dL POC Glucose (mg/dL) 107 H 111 H (75-99) mg/dL Phosphorus (2.5-4.5) mg/dL Iron (50-170) ug/dL Iron Saturation (12.00-45.00) [place] LC, Quant (0.33-1.94) mg/dL 05/28/18 Range/Units 18:08 WBC (3.8-10.6) k/uL RBC (3.80-5.40) m/uL Hgb (11.4-16.0) gm/dL Hct (34.0-46.0) % MCHC (31.0-37.0) g/dL Plt Count (150-450) k/uL Lymphocytes # (Manual) (1.0-4.8) k/uL ABG pO2 (83-108) mmHg ABG Total CO2 (19-24) mmol/L ABG O2 Saturation (94-97) % BUN (7-17) mg/dL Creatinine (0.52-1.04) mg/dL POC Glucose (mg/dL) 131 H (75-99) mg/dL Phosphorus (2.5-4.5) mg/dL Iron (50-170) ug/dL Iron Saturation (12.00-45.00) [place] LC, Quant (0.33-1.94) mg/dL Assessment and Plan Assessment: Acute alcohol withdrawal and delirium tremens Confusion and unable to protect her airway secondary to above, status post intubation History of alcohol withdrawal seizure UTI Chronic alcoholic liver disease Chronic Pancytopenia , secondary to alcoholism Plan: This is a pleasant 27 years old female who presents because of alcohol withdrawal and delirium tremens that needed intubation. Labs and medication refills. Continue with same treatment. Continue with symptomatic treatment. Monitor lytes and vitals. Pulmonary/critical care unit team were consulted. Neurology has been called for her history of seizure. Patient with pancytopenia and recommend hematology team to see patient. DVT prophylaxis. Further recommendations of the clinical course of the patient DVT prophylaxis: Heparin GI prophylaxis: Protonix prognosis is guarded
[2018-05-28] MEDS: levETIRAcetam IV 750 MG in SODIUM CHLORIDE 0.9% 100 ML IVPB SCH (20:56)
[2018-05-28] MEDS ORDERED: CIPROFLOXACIN/DEXTROSE PMX 400 MG in DEXTROSE/WATER 1 200ML.BAG IVPB SCH (21:00)
[2018-05-28] MEDS ORDERED: CIPROFLOXACIN HCL 500 MG TAB PO SCH (21:00)
--- NOTE | 2018-05-28 23:07 | P.PN ---
Subjective Progress Note Date: 05/28/18 This patient is a 27-year-old female who was admitted from [place] [facility] program for alcohol withdrawal and acute delirium tremens. Patient has a known history of alcohol abuse in the past. She also has underlying seizure disorder and has been taking anticonvulsant therapy with Keppra. She was admitted to the intensive care unit where she was started on a CIWA protocol for alcohol withdrawal. Her Keppra blood level is pending today. The patient was given a sedation holiday this morning but could not tolerate this. She had to be restarted on Diprivan. She is currently on Diprivan 50 g/ h and she remains heavily sedated. She does open her eyes only minimally the sternal rub. Her Keppra blood level was available today from the laboratory. Her Keppra level is therapeutic at 14.8. She is to be maintained on current dose of Keppra. Patient does have a history of alcohol leak liver disease with pancytopenia secondary from alcohol involvement and bone marrow suppression. She has a history of alcohol withdrawal seizures in the past as well. As noted her Keppra blood level did come back therapeutic range. She is to continue on her current dose of Keppra. She has evidence of a diffuse metabolic encephalopathy at this time. We will continue to monitor her progress daily to see if there is ongoing improvement in her mental status. We will continue close neurological follow-up of this patient Objective - Vital Signs Vital signs: Vital Signs Temp 100.7 F H 05/28/18 16:00 Pulse 117 H 05/28/18 21:44 Resp 20 05/28/18 19:00 BP 118/77 05/28/18 19:00 Pulse Ox 94 L 05/28/18 19:00 Intake & Output 05/28/18 05/28/18 05/29/18 06:59 18:59 06:59 Intake Total 5990.041 4824 Output Total 8532 2215 Balance 651.575 -1136 Weight 89.8 kg 89.8 kg Intake: IV 960 995 Sodium Chloride 0.9% 1, 900 975 000 ml @ 75 mls/hr IV . [id number] CE Rx#:[id number] fentaNYL (PF) 2,500 mcg 60 20 In Sodium Chloride 0.9% 200 ml @ 50 MCG/HR 5 mls/ hr IV .Q24H CE Rx#: [id number] Intake, IV Titration 433.575 Amount Midazolam HCl 100 mg In 95.5 Sodium Chloride 0.9% 80 ml @ 0.02 MG/KG/HR 1.7 mls/hr IV .Q24H CE Rx#: [id number] Propofol 1,000 mg In 338.075 Empty Bag 1 bag @ Titrate IV .Q0M CE Rx#: [id number] Tube Feeding 308 84 Other 30 Output: Urine 1080 2215 Other: Voiding Method Indwelling Catheter Indwelling Catheter - Exam Physical examination: PHYSICAL EXAMINATION: Patient is examined in the intensive care unit and she is currently intubated on the ventilator. She is receiving Diprivan for sedation. VITAL SIGNS: Blood pressure is [118/77]. Heart rate is [105]. Respiration is [20 ]. Temperature is [100.7]. HEENT: Head is atraumatic, neck is supple, there were no carotid bruits. CHEST: Lungs are clear to auscultation and percussion. CARDIAC: S1, S2 normal rate and rhythm. There is no murmur. ABDOMEN: Soft and nontender. Bowel sounds are present. EXTREMITIES: There is no pedal edema. Peripheral pulses are present, Neurological examination: Patient's neurological examination is unchanged from yesterday. - Labs CBC & Chem 7: 05/28/18 05:46 05/28/18 05:46 Labs: Abnormal Lab Results - Last 24 Hours (Table) 05/28/18 05/28/18 05/28/18 Range/Units 05:46 05:46 05:46 WBC 3.1 L (3.8-10.6) k/uL RBC 2.85 L (3.80-5.40) m/uL Hgb 8.3 L (11.4-16.0) gm/dL Hct 27.4 L (34.0-46.0) % MCHC 30.3 L (31.0-37.0) g/dL Plt Count 142 L (150-450) k/uL Lymphocytes # (Manual) 0.47 L (1.0-4.8) k/uL ABG pO2 (83-108) mmHg ABG Total CO2 (19-24) mmol/L ABG O2 Saturation (94-97) % BUN 5 L (7-17) mg/dL Creatinine 0.43 L (0.52-1.04) mg/dL POC Glucose (mg/dL) (75-99) mg/dL Phosphorus 5.4 H (2.5-4.5) mg/dL Iron 18 L (50-170) ug/dL Iron Saturation 6.04 L (12.00-45.00) Free [place] LC, Quant 2.11 H (0.33-1.94) mg/dL 05/28/18 05/28/18 05/28/18 Range/Units 07:03 07:24 12:05 WBC (3.8-10.6) k/uL RBC (3.80-5.40) m/uL Hgb (11.4-16.0) gm/dL Hct (34.0-46.0) % MCHC (31.0-37.0) g/dL Plt Count (150-450) k/uL Lymphocytes # (Manual) (1.0-4.8) k/uL ABG pO2 159 H (83-108) mmHg ABG Total CO2 25 H (19-24) mmol/L ABG O2 Saturation 100.0 H (94-97) % BUN (7-17) mg/dL Creatinine (0.52-1.04) mg/dL POC Glucose (mg/dL) 107 H 111 H (75-99) mg/dL Phosphorus (2.5-4.5) mg/dL Iron (50-170) ug/dL Iron Saturation (12.00-45.00) Free [place] LC, Quant (0.33-1.94) mg/dL 05/28/18 Range/Units 18:08 WBC (3.8-10.6) k/uL RBC (3.80-5.40) m/uL Hgb (11.4-16.0) gm/dL Hct (34.0-46.0) % MCHC (31.0-37.0) g/dL Plt Count (150-450) k/uL Lymphocytes # (Manual) (1.0-4.8) k/uL ABG pO2 (83-108) mmHg ABG Total CO2 (19-24) mmol/L ABG O2 Saturation (94-97) % BUN (7-17) mg/dL Creatinine (0.52-1.04) mg/dL POC Glucose (mg/dL) 131 H (75-99) mg/dL Phosphorus (2.5-4.5) mg/dL Iron (50-170) ug/dL Iron Saturation (12.00-45.00) [place] LC, Quant (0.33-1.94) mg/dL Assessment and Plan (1) Acute metabolic encephalopathy Current Visit: Yes Status: Acute Code(s): G93.41 - METABOLIC ENCEPHALOPATHY SNOMED Code(s): 84870472 (2) Alcohol withdrawal Current Visit: Yes Status: Acute Code(s): F10.239 - ALCOHOL DEPENDENCE WITH WITHDRAWAL, UNSPECIFIED SNOMED Code(s): 976731885 (3) Seizure disorder Current Visit: Yes Status: Acute Code(s): G40.909 - EPILEPSY, UNSP, NOT INTRACTABLE, WITHOUT STATUS EPILEPTICUS SNOMED Code(s): 028152625 (4) Alcoholic hepatitis Current Visit: No Status: Acute Code(s): K70.10 - ALCOHOLIC HEPATITIS WITHOUT ASCITES SNOMED Code(s): 632231825 (5) ETOH abuse Current Visit: No Status: Acute Code(s): F10.10 - ALCOHOL ABUSE, UNCOMPLICATED SNOMED Code(s): 66813191 Plan: This patient is a 27-year-old female was admitted to the intensive care unit for treatment of acute hypoxemic respiratory failure. She has a history of alcohol leak liver disease with pancytopenia likely secondary from alcohol abuse. She was residing at [place] [facility] prior to [facility]. She was intubated back on 05/25/2018 and attempts have been made to wean her. Patient was eventually extubated today and she looks to be following simple commands. She is not able to give details as to what had happened at [place] prior to her admission. The patient is to be maintained on a CIWA protocol given her history of alcohol abuse. She is currently on Cipro. As noted her Keppra level did come back in a therapeutic range. We will continue close neurological follow-up with this patient during this admission. Her overall prognosis at this time remains very guarded.
[2018-05-28 23:56] LABS: Glucose,Whole Blood 102 mg/dL (75-99)
[2018-05-29] MEDS: DEXAMETHASONE SOD PHOSPHATE 10 MG/ML 1 ML VIAL IV SCH ×2 (01:47→10:02)
[2018-05-29 06:45] LABS: Anion Gap 14 mmol/L; Blood Urea Nitrogen 8 mg/dL (7-17); Calcium 9.7 mg/dL (8.4-10.2); Carbon Dioxide 21 mmol/L (22-30); Chloride 104 mmol/L (98-107); Glucose 103 mg/dL (74-99); Magnesium 1.9 mg/dL (1.6-2.3); Phosphorus 4.5 mg/dL (2.5-4.5); Potassium 4.4 mmol/L (3.5-5.1); Sodium 139 mmol/L (137-145)
[2018-05-29 06:48] LABS: Basophils % (A) 0 %; Eosinophils % (A) 1 %; HCT 26.5 % (34.0-46.0); HGB 8.4 gm/dL (11.4-16.0); Hypochromasia Moderate; Lymphocytes # (A) 0.4 k/uL (1.0-4.8); Lymphocytes % (A) 10 %; MCH 29.1 pg (25.0-35.0); MCHC 31.5 g/dL (31.0-37.0); MCV 92.2 fL (80.0-100.0); Mean Platelet Volume 8.2; Monocytes # (A) 0.3 k/uL (0-1.0); Monocytes % (A) 8 %; Neutrophils # (A) 3.2 k/uL (1.3-7.7); Neutrophils % (A) 80 %; Platelet Count 230 k/uL (150-450); Poikilocytosis Slight; RBC 2.88 m/uL (3.80-5.40); RDW 14.7 % (11.5-15.5)
--- NOTE | 2018-05-29 06:59 | P.PN ---
Subjective Progress Note Date: 05/29/18 Principal diagnosis: Respiratory failure Progress note dated 05/28/2018 This is a 27-year-old female with acute hypoxemic respiratory failure secondary to acute alcohol withdrawal syndrome and delirium tremens. 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 Currently, the patient is sedated. We are going to do a daily interruption of sedation. Currently, her vent settings include the volume assist control mode, rate of 20, tidal volume of 400, FiO2 28% PEEP of 5. Arterial blood gases have not yet been done. Chest x-ray is normal. She is on propofol at 50 mics per kilogram per minute, fentanyl drip at 50 g per hour of Versed drip and saline at 75 mL an hour. She is also receiving vital AF at 28 with a goal of 28 mL. The patient was admitted on May 24 with alcohol withdrawal symptoms and delirium tremens and intubated on the . Progress note dated 05/29/2018 This is a 27-year-old female with a history of acute hypoxemic respiratory failure secondary to acute alcohol withdrawal syndrome and delirium tremens. She has a history of alcoholic liver disease, pancytopenia secondary to bone marrow involvement from her alcohol intake, alcohol withdrawal seizures, elevated liver function test and a history of chronic alcohol abuse with previous and right foot surgery. She also has a history of ongoing heavy tobacco use and drinks 1/5 of vodka per day. Yesterday, after evaluating her, I decided that it was time for her to be extubated. We will ahead and woke her up, and did a cuff leak test and we went ahead and extubated her to nasal cannula. The patient did develop some post extubation stridor. He was treated with Decadron 6 mg IV push every 6 hours 4 doses and also aerosolized lidocaine and a Vaponefrin. Currently she is doing relatively well. She is very stable. Currently she is on O2 at 3 L by nasal cannula and receiving IV at 75 mL an hour. She apparently developed developed some blisters difficulty swallowing and speech was called for a swallow evaluation. In addition, we had some Lovenox at 40 mg subcu daily for DVT prophylaxis. Objective - Vital Signs Vital signs: Vital Signs Temp 99 F 05/29/18 04:00 Pulse 93 05/29/18 06:30 Resp 20 05/29/18 06:30 BP 113/66 05/29/18 06:30 Pulse Ox 100 05/29/18 06:30 Intake & Output 05/28/18 05/28/18 05/29/18 06:59 18:59 06:59 Intake Total 0384.693 9195 1125 Output Total 1080 2215 1190 Balance 651.575 -1136 -65 Weight 89.8 kg 89.8 kg 83.9 kg Intake: IV 496 183 5099 Ciprofloxacin/Dextrose 200 Pmx 400 mg In Dextrose/ Water 1 200ml.bag @ 200 mls/hr IVPB Q12HR CE Rx# :[id number] Sodium Chloride 0.9% 1, 900 975 825 000 ml @ 75 mls/hr IV . [id number] CE Rx#:[id number] fentaNYL (PF) 2,500 mcg 60 20 In Sodium Chloride 0.9% 200 ml @ 50 MCG/HR 5 mls/ hr IV .Q24H CE Rx#: [id number] levETIRAcetam IV 750 mg 100 In Sodium Chloride 0.9% 100 ml @ 400 mls/hr IVPB Q12HR CE Rx#:[id number] Intake, IV Titration 433.575 Amount Midazolam HCl 100 mg In 95.5 Sodium Chloride 0.9% 80 ml @ 0.02 MG/KG/HR 1.7 mls/hr IV .Q24H CE Rx#: [id number] Propofol 1,000 mg In 338.075 Empty Bag 1 bag @ Titrate IV .Q0M CE Rx#: [id number] Tube Feeding 308 84 Other 30 Output: Urine 1080 2215 1190 Other: Voiding Method Indwelling Catheter Indwelling Catheter Indwelling Catheter - Exam No acute distress, oriented 3, nasal O2 in place. HEENT examination is grossly unremarkable. Mucous membranes are moist. Neck supple. Full range of motion. No adenopathy thyromegaly or neck vein distention. Minimal stridor noted. Cardiovascular examination reveals regular rhythm rate. S1-S2 normal. No S3 or S4. No discernible murmur noted. Lungs reveal coarse bilateral rhonchi. Breath sounds equal bilaterally. No wheezes. No crackles. Abdomen soft bowel sounds are heard. No masses or tenderness. Extremities are intact. No cyanosis clubbing or edema. Skin is without rash or lesion. Neurologic examination is brief but nonfocal. - Labs CBC & Chem 7: 05/28/18 05:46 05/29/18 05:31 Labs: Abnormal Lab Results - Last 24 Hours (Table) 05/28/18 05/28/18 05/28/18 Range/Units 05:46 05:46 07:03 ABG pO2 (83-108) mmHg ABG Total CO2 (19-24) mmol/L ABG O2 Saturation (94-97) % Carbon Dioxide (22-30) mmol/L Creatinine (0.52-1.04) mg/dL Glucose (74-99) mg/dL POC Glucose (mg/dL) 107 H (75-99) mg/dL Iron 18 L (50-170) ug/dL Iron Saturation 6.04 L (12.00-45.00) RBC Folate 980 H (280 - 791) ng/mL Free Comfrey LC, Quant 2.11 H (0.33-1.94) mg/dL 05/28/18 05/28/18 05/28/18 Range/Units 07:24 12:05 18:08 ABG pO2 159 H (83-108) mmHg ABG Total CO2 25 H (19-24) mmol/L ABG O2 Saturation 100.0 H (94-97) % Carbon Dioxide (22-30) mmol/L Creatinine (0.52-1.04) mg/dL Glucose (74-99) mg/dL POC Glucose (mg/dL) 111 H 131 H (75-99) mg/dL Iron (50-170) ug/dL Iron Saturation (12.00-45.00) RBC Folate (280 - 791) ng/mL Free Comfrey LC, Quant (0.33-1.94) mg/dL 05/28/18 05/29/18 Range/Units 23:53 05:31 ABG pO2 (83-108) mmHg ABG Total CO2 (19-24) mmol/L ABG O2 Saturation (94-97) % Carbon Dioxide 21 L (22-30) mmol/L Creatinine 0.45 L (0.52-1.04) mg/dL Glucose 103 H (74-99) mg/dL POC Glucose (mg/dL) 102 H (75-99) mg/dL Iron (50-170) ug/dL Iron Saturation (12.00-45.00) RBC Folate (280 - 791) ng/mL Free Comfrey LC, Quant (0.33-1.94) mg/dL Assessment and Plan Assessment: Assessment Acute hypoxemic respiratory failure, with intubation on May 24, secondary to acute alcohol withdrawal and delirium tremens, Status post extubation on May 28. Post extubation stridor, treated with Decadron as well as aerosolized epinephrine and lidocaine. Alcoholic liver disease Alcohol involvement of bone marrow with pancytopenia Acute urinary tract infection History of alcohol withdrawal seizures Elevated liver enzymes secondary to alcoholic liver disease Failure to wean from mechanical ventilation Plan: Plan dated 05/28/2018 The patient will get a daily interruption of sedation with a spontaneous breathing trial. We will stop or wean the propofol, fentanyl, and Versed. Apparently, when she received a daily interruption of sedation, she was alert and oriented. Attempt will be made at trying to extubate her today. Labs x- rays and medications are all reviewed. Chest x-ray looked excellent. Microbiology is negative. White count 3.1 hemoglobin 8.3 hematocrit 27.4 and platelet count 142,000. Sodium 137 potassium 4.4 chloride 106 CO2 22 a 90 abnormal with a BUN of 5 and a creatinine of 0.43. Prognosis is guarded. Critical care time 33 minutes Plan dated 05/29/2018 The patient was extubated yesterday. She did develop post extubation stridor treated with Decadron IV and aerosolized lidocaine and Vaponefrin. She's currently on 3 L nasal cannula. She seems relatively comfortable. She's getting a saline IV at 75 mL an hour. Speech will be evaluating her today because of her difficulty in swallowing. Should she pass, we can advance her diet. Currently, hemoglobin is 8.4 hematocrit 26.5 and white count is 4. Platelet count is 230,000. Sodium and potassium are normal. Chlorides 104. CO2 21. BUN and creatinine were 8 and 0.45 respectively. Microbiologic studies are negative. Orders are reviewed. Additional recommendations and suggestions are forthcoming. Prognosis is guarded. Critical care time 33 minutes Time with Patient: Greater than 30
[2018-05-29 07:37] LABS: Glucose,Whole Blood 101 mg/dL (75-99)
[2018-05-29] MEDS: SODIUM CHLORIDE 0.9% 1,000 ML IV SCH ×3 (08:55→21:32)
[2018-05-29] MEDS: ENOXAPARIN 40 MG/0.4 ML SYRINGE SQ SCH (08:55)
[2018-05-29] MEDS: PANTOPRAZOLE 40 MG/10 ML VIAL IVP SCH (08:55)
[2018-05-29] MEDS: levETIRAcetam IV 750 MG in SODIUM CHLORIDE 0.9% 100 ML IVPB SCH ×2 (08:56→21:17)
[2018-05-29] MEDS: MAGNESIUM SULFATE-D5W PMX 1 GM in DEXTROSE/WATER 1 100ML.BAG IVPB SCH ×2 (08:56→11:04)
[2018-05-29] MEDS: METOPROLOL TARTRATE 25 MG TAB PO SCH ×2 (08:59→21:29)
[2018-05-29 11:02] LABS: Albumin 3.29 g/dL (3.80-4.90); Gamma Globulin 0.81 g/dL (0.70-1.50)
--- NOTE | 2018-05-29 13:24 | P.PN ---
Subjective On-call hospitalist covering for Dr. Muñiz This is a pleasant 27 years old female who was sent from [place] for alcohol withdrawal and delirium tremens. Patient was found to be educated that need. Intubation on 05/25/2018 as well as adding multiple sedatives including Versed, propofol and fentanyl drips, her down. Patient has low hemoglobin of 6.9 and 7.4. Her labs from 2 months ago showing low aren't at 46 with low TIBC which shows more towards anemia of chronic disease. Iron saturation is within normal limits at 20. ferritin is within normal limits at 126. Patient has reactive hepatitis BS antibody. Her liver enzymes are trending down. B12 level more than 1000 and folate is within normal limits. 05/27/2018 Patient is still in ICU, intubated and on so that the implant and Versed, fentanyl and propofol. Patient got easily agitated and follow commands when the sedatives are low doses alert. Head CT was negative as per neurology recommendation. Patient continued to be on Keppra. Check level. Repeat chest x-ray from today shows cardiomegaly. Hematology evaluation is appreciated should most likely pancytopenia is up from heavy alcohol intoxication. As per staff patient was drinking about 1 pint per day. Liver enzymes are trending down 05/28/2018 Patient got extubated today, she looks calm. She has some heart problems and she looks tired. The patient didn't complain of any specific signs and symptoms. No chest pain. No dyspnea. No change in urine bowel habits. No nausea vomiting. No shakiness or trauma. No fever. 05/29/2018 Patient seen and examined in the ICU today. Patient status post extubation. All sedatives continued. Patient is awake and does not complain from symptoms. She denies chest pain. No abdominal pain. No nausea vomiting. No change in urine or bowel habits. No dyspnea. No fever. Cipro was DC'd. Keppra level is therapeutic, neurology following the patient.. Speech Evaluation is pending. WBC 4.0. Hemoglobin 8.4. And platelets normal at 2:30. Pancytopenia looks resolving goes more due to alcohol toxicity. BMP was unremarkable CONSTITUTIONAL: No fever, no malaise, no fatigue. HEENT: No recent visual problems or hearing problems. Denied any sore throat. CARDIOVASCULAR: No orthopnea, PND, no palpitations, no syncope. PULMONARY: No shortness of breath, no cough, no hemoptysis. GASTROINTESTINAL: No diarrhea, no nausea, no vomiting, no abdominal pain. Normoactive bowel sounds. NEUROLOGICAL: No headaches, no weakness, no numbness. HEMATOLOGICAL: Denies any bleeding or petechiae. GENITOURINARY: Denies any burning micturition, frequency, or urgency. MUSCULOSKELETAL/RHEUMATOLOGICAL: Denies any joint pain, swelling, or any muscle pain. ENDOCRINE: Denies any polyuria or polydipsia. medication reviewed: Lovenox 40 mg, Keppra 750 mg, Lopressor 25 mg, Zofran 4 mg , Protonix 40 mg, normal saline at 75 mL/h, thiamine 100 mg t. Objective - Vital Signs Vital signs: Vital Signs Temp 99.5 F 05/29/18 12:00 Pulse 83 05/29/18 12:00 Resp 16 05/29/18 12:00 BP 120/76 05/29/18 12:00 Pulse Ox 100 05/29/18 12:00 Intake & Output 05/28/18 05/29/18 05/29/18 18:59 06:59 18:59 Intake Total 1079 1125 750 Output Total 2215 1190 335 Balance -1136 -65 415 Weight 89.8 kg 83.9 kg Intake: IV 995 1125 650 Ciprofloxacin/Dextrose 200 Pmx 400 mg In Dextrose/ Water 1 200ml.bag @ 200 mls/hr IVPB Q12HR CE Rx# :[id number] Sodium Chloride 0.9% 1, 975 825 450 000 ml @ 75 mls/hr IV . [id number] CE Rx#:[id number] fentaNYL (PF) 2,500 mcg 20 In Sodium Chloride 0.9% 200 ml @ 50 MCG/HR 5 mls/ hr IV .Q24H CE Rx#: [id number] levETIRAcetam IV 750 mg 100 200 In Sodium Chloride 0.9% 100 ml @ 400 mls/hr IVPB Q12HR CE Rx#:[id number] Intake, IV Titration 100 Amount Magnesium Sulfate-D5w Pmx 100 1 gm In Dextrose/Water 1 100ml.bag @ 100 mls/hr IVPB Q1H CE Rx#: [id number] Tube Feeding 84 Output: Urine 2215 1190 335 Other: Voiding Method Indwelling Catheter Indwelling Catheter - Exam -GENERAL: The patient is intubated and sedated, not in any acute distress. Well developed, well nourished. HEENT: Pupils are round and equally reacting to light. EOMI. No scleral icterus. No conjunctival pallor. Normocephalic, atraumatic. No pharyngeal erythema. No thyromegaly. CARDIOVASCULAR: S1 and S2 present. No murmurs, rubs, or gallops. PULMONARY: Chest is clear to auscultation, no wheezing or crackles. ABDOMEN: Soft, nontender, nondistended, normoactive bowel sounds. No palpable organomegaly. MUSCULOSKELETAL: No joint swelling or deformity. EXTREMITIES: No cyanosis, clubbing, or pedal edema. NEUROLOGICAL: Gross neurological examination did not reveal any focal deficits. SKIN: No rashes. - Labs CBC & Chem 7: 05/29/18 05:31 05/29/18 05:31 Labs: Abnormal Lab Results - Last 24 Hours (Table) 05/28/18 05/28/18 05/28/18 Range/Units 05:46 05:46 18:08 RBC (3.80-5.40) m/uL Hgb (11.4-16.0) gm/dL Hct (34.0-46.0) % Lymphocytes # (1.0-4.8) k/uL Carbon Dioxide (22-30) mmol/L Creatinine (0.52-1.04) mg/dL Glucose (74-99) mg/dL POC Glucose (mg/dL) 131 H (75-99) mg/dL Albumin (PEP) 3.29 L (3.80-4.90) g/dL RBC Folate 980 H (280 - 791) ng/mL 05/28/18 05/29/18 05/29/18 Range/Units 23:53 05:31 05:31 RBC 2.88 L (3.80-5.40) m/uL Hgb 8.4 L (11.4-16.0) gm/dL Hct 26.5 L (34.0-46.0) % Lymphocytes # 0.4 L (1.0-4.8) k/uL Carbon Dioxide 21 L (22-30) mmol/L Creatinine 0.45 L (0.52-1.04) mg/dL Glucose 103 H (74-99) mg/dL POC Glucose (mg/dL) 102 H (75-99) mg/dL Albumin (PEP) (3.80-4.90) g/dL RBC Folate (280 - 791) ng/mL 05/29/18 Range/Units 06:58 RBC (3.80-5.40) m/uL Hgb (11.4-16.0) gm/dL Hct (34.0-46.0) % Lymphocytes # (1.0-4.8) k/uL Carbon Dioxide (22-30) mmol/L Creatinine (0.52-1.04) mg/dL Glucose (74-99) mg/dL POC Glucose (mg/dL) 101 H (75-99) mg/dL Albumin (PEP) (3.80-4.90) g/dL RBC Folate (280 - 791) ng/mL Assessment and Plan Assessment: Acute alcohol withdrawal and delirium tremens Confusion and unable to protect her airway secondary to above, status post intubation History of alcohol withdrawal seizure UTI Chronic alcoholic liver disease Chronic Pancytopenia , secondary to alcoholism Plan: This is a pleasant 27 years old female who presents because of alcohol withdrawal and delirium tremens that needed intubation. Labs and medication refills. Continue with same treatment. Continue with symptomatic treatment. Monitor lytes and vitals. Pulmonary/critical care unit team were consulted. Neurology has been called for her history of seizure. Patient with pancytopenia and recommend hematology team to see patient. DVT prophylaxis. Further recommendations of the clinical course of the patient DVT prophylaxis: lovenox GI prophylaxis: Protonix prognosis is guarded
[2018-05-29] MEDS: THIAMINE 100 MG TAB PO SCH ×2 (13:32→17:01)
[2018-05-29 13:45] LABS: Glucose,Whole Blood 163 mg/dL (75-99)
[2018-05-29] MEDS: INSULIN ASPART 100 UNIT/ML 1 ML 10 ML VIAL SQ SCH ×2 (14:04→17:16)
[2018-05-29] MEDS ORDERED: diphenhydrAMINE 25 MG CAP PO PRN (15:18)
[2018-05-29] MEDS ORDERED: diphenhydrAMINE 25 MG CAP PO ONE (16:41)
[2018-05-29 17:20] LABS: Glucose,Whole Blood 132 mg/dL (75-99)
--- NOTE | 2018-05-29 18:17 | P.PN ---
Subjective Progress Note Date: 05/29/18 Principal diagnosis: Pancytopenia Pt seen in f/u in ICU, she is shakey, feels anxious, her abd hurts, mild nausea , she had T max 100.7F in the last 24 hours, she continues on abx. She is menstruating, states the flow has slowed down, denies dysuria, hematuria, black or bloody stool. She does not remember what has happened to her the last several days. Objective - Vital Signs Vital signs: Vital Signs Temp 98.6 F 05/29/18 16:00 Pulse 89 05/29/18 18:00 Resp 12 05/29/18 18:00 BP 113/77 05/29/18 18:00 Pulse Ox 97 05/29/18 18:00 Intake & Output 05/28/18 05/29/18 05/29/18 18:59 06:59 18:59 Intake Total 1079 1125 1955 Output Total 2215 1190 1315 Balance -1136 -65 640 Weight 89.8 kg 83.9 kg Intake: IV 995 1125 1000 Ciprofloxacin/Dextrose 200 Pmx 400 mg In Dextrose/ Water 1 200ml.bag @ 200 mls/hr IVPB Q12HR CE Rx# :[id number] Sodium Chloride 0.9% 1, 975 825 900 000 ml @ 75 mls/hr IV . [id number] CE Rx#:[id number] fentaNYL (PF) 2,500 mcg 20 In Sodium Chloride 0.9% 200 ml @ 50 MCG/HR 5 mls/ hr IV .Q24H CE Rx#: [id number] levETIRAcetam IV 750 mg 100 100 In Sodium Chloride 0.9% 100 ml @ 400 mls/hr IVPB Q12HR CE Rx#:[id number] Intake, IV Titration 200 Amount Magnesium Sulfate-D5w Pmx 200 1 gm In Dextrose/Water 1 100ml.bag @ 100 mls/hr IVPB Q1H CE Rx#: [id number] Oral 755 Tube Feeding 84 Output: Urine 2215 1190 1315 Other: Voiding Method Indwelling Catheter Indwelling Catheter Indwelling Catheter - Constitutional General appearance: Present: average body habitus, cooperative, mild distress - EENT Eyes: Present: anicteric sclerae, EOMI ENT: Present: hearing grossly normal, normal oropharynx - Respiratory Respiratory: bilateral: CTA - Cardiovascular Rhythm: regular Heart sounds: normal: S1, S2 Abnormal Heart Sounds: Absent: systolic murmur, diastolic murmur, rub, S3 Gallop , S4 Gallop, click, other - Peripheral edema leg Peripheral Edema: bilateral: Trace - Gastrointestinal General gastrointestinal: Present: normal bowel sounds, soft - Integumentary Integumentary: Present: pale - Neurologic Neurologic: Present: CNII-XII intact - Musculoskeletal Musculoskeletal: Present: generalized weakness - Psychiatric Psychiatric: Present: A&O x's 3, appropriate affect, intact judgment & insight - Labs CBC & Chem 7: 05/29/18 05:31 05/29/18 05:31 Labs: Abnormal Lab Results - Last 24 Hours (Table) 05/28/18 05/28/18 05/28/18 Range/Units 05:46 05:46 18:08 RBC (3.80-5.40) m/uL Hgb (11.4-16.0) gm/dL Hct (34.0-46.0) % Lymphocytes # (1.0-4.8) k/uL Carbon Dioxide (22-30) mmol/L Creatinine (0.52-1.04) mg/dL Glucose (74-99) mg/dL POC Glucose (mg/dL) 131 H (75-99) mg/dL Albumin (PEP) 3.29 L (3.80-4.90) g/dL RBC Folate 980 H (280 - 791) ng/mL 05/28/18 05/29/18 05/29/18 Range/Units 23:53 05:31 05:31 RBC 2.88 L (3.80-5.40) m/uL Hgb 8.4 L (11.4-16.0) gm/dL Hct 26.5 L (34.0-46.0) % Lymphocytes # 0.4 L (1.0-4.8) k/uL Carbon Dioxide 21 L (22-30) mmol/L Creatinine 0.45 L (0.52-1.04) mg/dL Glucose 103 H (74-99) mg/dL POC Glucose (mg/dL) 102 H (75-99) mg/dL Albumin (PEP) (3.80-4.90) g/dL RBC Folate (280 - 791) ng/mL 05/29/18 05/29/18 05/29/18 Range/Units 06:58 13:41 17:05 RBC (3.80-5.40) m/uL Hgb (11.4-16.0) gm/dL Hct (34.0-46.0) % Lymphocytes # (1.0-4.8) k/uL Carbon Dioxide (22-30) mmol/L Creatinine (0.52-1.04) mg/dL Glucose (74-99) mg/dL POC Glucose (mg/dL) 101 H 163 H 132 H (75-99) mg/dL Albumin (PEP) (3.80-4.90) g/dL RBC Folate (280 - 791) ng/mL Assessment and Plan (1) Pancytopenia Narrative/Plan: As pt is recovering from ETOH withdraw her WBC has stabilized, platelets are improving and Hgb is stable. Paraproteinemia work up negative Iron deficiency. Will await >24 hours without fever before initiating parenteral iron supplementation Discussed with pt what happened to her and that she was having alcohol withdraw. Explained that her blood problem is in part related to alcohol abuse as alcohol damages the bone marrow and its ability to produce blood. She seemed to understand. She did understand that her current situation is a direct result of alcohol abuse. Encouraged pt to ask for help and support. Current Visit: Yes Status: Acute Priority: High Code(s): D61.818 - OTHER PANCYTOPENIA SNOMED Code(s): 667098312 Plan: Due to iron deficiency a GI work up would be indicated. Will discuss case with GI and get their opinion as to when would be the best time to evaluate pt. No acute interventions from a Hematology standpoint. Cont to monitor CBC
[2018-05-29] MEDS: diphenhydrAMINE 25 MG CAP PO SCH (21:29)
[2018-05-29 21:36] LABS: Glucose,Whole Blood 109 mg/dL (75-99)
[2018-05-30] MEDS: INSULIN ASPART 100 UNIT/ML 1 ML 10 ML VIAL SQ SCH ×5 (00:42→23:52)
[2018-05-30 05:41] LABS: HGB 8.5 gm/dL (11.4-16.0); Hypochromasia Moderate; MCHC 32.6 g/dL (31.0-37.0); MCV 91.9 fL (80.0-100.0); Mean Platelet Volume 8.8; Platelet Count 293 k/uL (150-450); Poikilocytosis Slight; RBC 2.83 m/uL (3.80-5.40); RDW 14.8 % (11.5-15.5); WBC 4.3 k/uL (3.8-10.6)
[2018-05-30 05:45] LABS: Anion Gap 10 mmol/L; Blood Urea Nitrogen 13 mg/dL (7-17); Calcium 9.2 mg/dL (8.4-10.2); Carbon Dioxide 20 mmol/L (22-30); Chloride 108 mmol/L (98-107); Glucose 108 mg/dL (74-99); Magnesium 1.8 mg/dL (1.6-2.3); Potassium 4.3 mmol/L (3.5-5.1); Sodium 138 mmol/L (137-145)
[2018-05-30 06:45] LABS: Band Neutrophils % 1 %; Eosinophils # (M) 0.04 k/uL (0-0.7); Lymphocytes # (M) 1.08 k/uL (1.0-4.8); Neutrophils % (M) 59 %; Nucleated Red Blood Cells 0 /100 WBC (0-0); Total Cells Counted 100
[2018-05-30 06:46] LABS: Anisocytosis (M) Present; Large Platelets Present; Polychromasia Present
[2018-05-30 07:48] LABS: Glucose,Whole Blood 104 mg/dL (75-99)
[2018-05-30] MEDS: PANTOPRAZOLE 40 MG TABLET PO SCH (08:00)
[2018-05-30] MEDS: levETIRAcetam IV 750 MG in SODIUM CHLORIDE 0.9% 100 ML IVPB SCH ×2 (08:00→20:28)
[2018-05-30] MEDS: diphenhydrAMINE 25 MG CAP PO SCH ×3 (08:01→23:11)
[2018-05-30] MEDS: METOPROLOL TARTRATE 25 MG TAB PO SCH ×2 (08:01→20:29)
[2018-05-30] MEDS: ENOXAPARIN 40 MG/0.4 ML SYRINGE SQ SCH (08:01)
--- NOTE | 2018-05-30 08:11 | P.PN ---
Subjective Progress Note Date: 05/30/18 Principal diagnosis: Acute hypoxic rest or a failure secondary to acute alcohol intoxication, and delirium tremens Progress note dated 05/28/2018 This is a 27-year-old female with acute hypoxemic respiratory failure secondary to acute alcohol withdrawal syndrome and delirium tremens. 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 Currently, the patient is sedated. We are going to do a daily interruption of sedation. Currently, her vent settings include the volume assist control mode, rate of 20, tidal volume of 400, FiO2 28% PEEP of 5. Arterial blood gases have not yet been done. Chest x-ray is normal. She is on propofol at 50 mics per kilogram per minute, fentanyl drip at 50 g per hour of Versed drip and saline at 75 mL an hour. She is also receiving vital AF at 28 with a goal of 28 mL. The patient was admitted on May 24 with alcohol withdrawal symptoms and delirium tremens and intubated on the . Progress note dated 05/29/2018 This is a 27-year-old female with a history of acute hypoxemic respiratory failure secondary to acute alcohol withdrawal syndrome and delirium tremens. She has a history of alcoholic liver disease, pancytopenia secondary to bone marrow involvement from her alcohol intake, alcohol withdrawal seizures, elevated liver function test and a history of chronic alcohol abuse with previous and right foot surgery. She also has a history of ongoing heavy tobacco use and drinks 1/5 of vodka per day. Yesterday, after evaluating her, I decided that it was time for her to be extubated. We will ahead and woke her up, and did a cuff leak test and we went ahead and extubated her to nasal cannula. The patient did develop some post extubation stridor. He was treated with Decadron 6 mg IV push every 6 hours 4 doses and also aerosolized lidocaine and a Vaponefrin. Currently she is doing relatively well. She is very stable. Currently she is on O2 at 3 L by nasal cannula and receiving IV at 75 mL an hour. She apparently developed developed some blisters difficulty swallowing and speech was called for a swallow evaluation. In addition, we had some Lovenox at 40 mg subcu daily for DVT prophylaxis. On 05/30/2018 patient seen in follow-up in the intensive care unit. She is awake and alert, oriented 3, in no acute distress, she sits up in the breakfast , room air pulse ox is 98%, vital signs are stable, she is afebrile. Lung sounds are clear to auscultation. No signs of DTs. IV 0.9 has been hep- locked. Patient did pass her swallow evaluation, and she is tolerating oral diet, currently on chopped diet. No new chest x-rays today, today's blood work has been reviewed, the WBCs 4.3, hemoglobin is 8.5, sodium is 138, potassium is 4.3, chloride is 108, CO2 is 20, BUN is 13, creatinine 0.49. Magnesium is 1.8. Sputum and urine cultures are negative. From pulmonary standpoint patient can be moved out of the intensive care unit today to general medical floor. Discontinue Staples catheter, ambulate patient. Objective - Vital Signs Vital signs: Vital Signs Temp 98.2 F 05/30/18 04:00 Pulse 75 05/30/18 06:00 Resp 17 05/30/18 06:00 BP 117/78 05/30/18 06:00 Pulse Ox 96 05/30/18 06:00 Intake & Output 05/29/18 05/30/18 05/30/18 18:59 06:59 18:59 Intake Total 1955 1225 Output Total 1315 1375 Balance 640 -150 Weight 83.8 kg Intake: IV 1000 1225 Sodium Chloride 0.9% 1, 900 825 000 ml @ 75 mls/hr IV . [id number] [facility] Rx#:[id number] levETIRAcetam IV 750 mg 100 400 In Sodium Chloride 0.9% 100 ml @ 400 mls/hr IVPB Q12HR [facility] Rx#:[id number] Intake, IV Titration 200 Amount Magnesium Sulfate-D5w Pmx 200 1 gm In Dextrose/Water 1 100ml.bag @ 100 mls/hr IVPB Q1H [facility] Rx#: [id number] Oral 755 Output: Urine 1315 1375 Other: Voiding Method Indwelling Catheter Indwelling Catheter - Exam No acute distress, oriented 3, nasal O2 in place. HEENT examination is grossly unremarkable. Mucous membranes are moist. Neck supple. Full range of motion. No adenopathy thyromegaly or neck vein distention. Minimal stridor noted. Cardiovascular examination reveals regular rhythm rate. S1-S2 normal. No S3 or S4. No discernible murmur noted. Lungs sounds are clear. Breath sounds equal bilaterally. No wheezes. No crackles. Abdomen soft bowel sounds are heard. No masses or tenderness. Extremities are intact. No cyanosis clubbing or edema. Skin is without rash or lesion. Neurologic examination is brief but nonfocal - Labs CBC & Chem 7: 05/30/18 04:59 05/30/18 04:59 Labs: Abnormal Lab Results - Last 24 Hours (Table) 05/28/18 05/29/18 05/29/18 Range/Units 05:46 13:41 17:05 RBC (3.80-5.40) m/uL Hgb (11.4-16.0) gm/dL Hct (34.0-46.0) % Chloride (98-107) mmol/L Carbon Dioxide (22-30) mmol/L Creatinine (0.52-1.04) mg/dL Glucose (74-99) mg/dL POC Glucose (mg/dL) 163 H 132 H (75-99) mg/dL Albumin (PEP) 3.29 L (3.80-4.90) g/dL 05/29/18 05/30/18 05/30/18 Range/Units 21:34 04:59 04:59 RBC 2.83 L (3.80-5.40) m/uL Hgb 8.5 L (11.4-16.0) gm/dL Hct 26.0 L (34.0-46.0) % Chloride 108 H (98-107) mmol/L Carbon Dioxide 20 L (22-30) mmol/L Creatinine 0.49 L (0.52-1.04) mg/dL Glucose 108 H (74-99) mg/dL POC Glucose (mg/dL) 109 H (75-99) mg/dL Albumin (PEP) (3.80-4.90) g/dL 05/30/18 Range/Units 07:34 RBC (3.80-5.40) m/uL Hgb (11.4-16.0) gm/dL Hct (34.0-46.0) % Chloride (98-107) mmol/L Carbon Dioxide (22-30) mmol/L Creatinine (0.52-1.04) mg/dL Glucose (74-99) mg/dL POC Glucose (mg/dL) 104 H (75-99) mg/dL Albumin (PEP) (3.80-4.90) g/dL Assessment and Plan Plan: Assessment: Acute hypoxemic respiratory failure, with intubation on May 24, secondary to acute alcohol withdrawal and delirium tremens, Status post extubation on May 28. Post extubation stridor, treated with Decadron as well as aerosolized epinephrine and lidocaine. Alcoholic liver disease Alcohol involvement of bone marrow with pancytopenia Acute urinary tract infection History of alcohol withdrawal seizures Elevated liver enzymes secondary to alcoholic liver disease Plan: Patient is doing well, advance her diet, discontinue Staples catheter, ambulate the patient. Hep-Lock IV fluids. Patient can move out of the intensive care unit today to general medical floor. We will see the patient on as-needed basis. I performed a history & physical examination of the patient and discussed their management with my nurse practitioner, Cecille Rios. I reviewed the nurse practitioner's note and agree with the documented findings and plan of care. Lung sounds are clear. The findings and the impression was discussed with the patient. I attest to the documentation by the nurse practitioner. Time with Patient: Less than 30
[2018-05-30 09:20] VITALS: BMI 30.7
--- NOTE | 2018-05-30 09:48 | P.CN ---
Psychiatric Consult - . Consult date: 05/30/18 Consult:: 05/29/18 14:35 Alcohol use disorder severe Assessment and Plan Assessment: History of Present Illness The patient is a 27-year-old lady, with an ongoing history of heavy alcohol use. The patient has had multiple admissions for alcohol toxicity. She was currently resident at [facility] as she was trying to quit. However she developed symptoms of withdrawal for which she was brought to the hospital. Due to progressive symptoms, the patient was intubated. Her CBC showed pancytopenia, with hemoglobin 7.1, WBC 3, and platelets 101. The patient was admitted in 03/31 for alcohol toxicity, and was noted to have pancytopenia at that time too, with W BC and platelets actually worse than the current admission. Hemoglobin on admission was 10 but had declined into the 8 range at the time of discharge. Clinical note the last 5 days from internal medicine is listed below; 05/27/2018 Patient is still in ICU, intubated and on so that the implant and Versed, fentanyl and propofol. Patient got easily agitated and follow commands when the sedatives are low doses alert. Head CT was negative as per neurology recommendation. Patient continued to be on Keppra. Check level. Repeat chest x-ray from today shows cardiomegaly. Hematology evaluation is appreciated should most likely pancytopenia is up from heavy alcohol intoxication. As per staff patient was drinking about 1 pint per day. Liver enzymes are trending down 05/28/2018 Patient got extubated today, she looks calm. She has some heart problems and she looks tired. The patient didn't complain of any specific signs and symptoms. No chest pain. No dyspnea. No change in urine bowel habits. No nausea vomiting. No shakiness or trauma. No fever. 05/29/2018 Patient seen and examined in the ICU today. Patient status post extubation. All sedatives continued. Patient is awake and does not complain from symptoms. She denies chest pain. No abdominal pain. No nausea vomiting. No change in urine or bowel habits. No dyspnea. No fever. Cipro was DC'd. Keppra level is therapeutic, neurology following the patient.. Speech Evaluation is pending. WBC 4.0. Hemoglobin 8.4. And platelets normal at 2:30. Pancytopenia looks resolving goes more due to alcohol toxicity. BMP was unremarkable Past Medical History Past Medical History: Seizure Disorder Additional Past Medical History / Comment(s): Past obstetrical history significant for 1 section for failure to progress. History of Any Multi-Drug Resistant Organisms: None Reported Past Surgical History: Section, Orthopedic Surgery Additional Past Surgical History / Comment(s): 2 rt foot sx in past Past Anesthesia/Blood Transfusion Reactions: Motion Sickness Past Psychological History: Alcohol use disorder severe; nicotine use disorder severe Smoking Status: Former smoker Past Alcohol Use History: Heavy Past Drug Use History: Alcohol use disorder severe; nicotine disorder severe Musculoskeletal Examination - Abnormal/Involuntary Movements: [none, tremors, spasm, tics] Strength: [greater than antigravity (greater than/equal to 3/5) in all extremities, weakness:] Muscle Tone: [no impairment, dystonia, hypertonic/myoclonus, rigidity, flaccid] Gait: [grossly normal, antalgic, limping, in wheelchair, wide-based] Station: [grossly normal, unsteady, in wheelchair] Mental Status Examination - General Appearance: [well groomed, appears stated age, Speech/Language: [spontaneous Attitude/Behavior: [cooperative Mood: [euthymic Affect: [full range Orientation: [time, person, place situation] Thought Content: [wnl Risk Factors: [ she is not suicidal (ideations, plan), and/or Homicidal ( ideations, plan), Perception: [wnl, she denies in any hallucinations hallucinations (auditory, visual, tactile) Thought Processes: [goal-oriented, Concentration/Attention Span: [wnl, [Per observation and interview with the patient] Recent Memory: [wnl 3 out of 3 in 3 minutes] Remote Memory: [wnl, [past events, as related history] Intelligence: [ average] [based on history, based on vocabulary, syntax, grammar , and content] Judgement: [good] [per patient's behavior/history of present illness] Insight: [good] [understanding severity of illness/history of present illness] Clinical impression and diagnosis; is a recovering alcohol use disorder severe with severe complications from her use. At the present time this 27-year-old is able to make good decisions and has a capacity to understand the right and wrong. She is able to be discharged and return to [facility] for treatment. Recommendations: Discharge, follow-up at [place], AA meetings 90 9D would also recommend Re[facility]ia and/or naltrexone future Thank you for the consult Naseem Hurt D.O. PhD attending psychiatrist [facility] (1) Alcohol withdrawal Current Visit: Yes Status: Acute Code(s): F10.239 - ALCOHOL DEPENDENCE WITH WITHDRAWAL, UNSPECIFIED SNOMED Code(s): 165194614 Time with Patient: Less than 30
[2018-05-30 11:55] LABS: Glucose,Whole Blood 112 mg/dL (75-99)
[2018-05-30] MEDS: THIAMINE 100 MG TAB PO SCH ×2 (11:55→16:55)
[2018-05-30] MEDS: SODIUM FERRIC GLUCONAT-SUCROSE 125 MG in SODIUM CHLORIDE 0.9% 100 ML IVPB SCH (12:30)
--- NOTE | 2018-05-30 21:55 | P.PN ---
Subjective On-call hospitalist covering for Dr. Muñiz This is a pleasant 27 years old female who was sent from [place] for alcohol withdrawal and delirium tremens. Patient was found to be educated that need. Intubation on 05/25/2018 as well as adding multiple sedatives including Versed, propofol and fentanyl drips, her down. Patient has low hemoglobin of 6.9 and 7.4. Her labs from 2 months ago showing low aren't at 46 with low TIBC which shows more towards anemia of chronic disease. Iron saturation is within normal limits at 20. ferritin is within normal limits at 126. Patient has reactive hepatitis BS antibody. Her liver enzymes are trending down. B12 level more than 1000 and folate is within normal limits. 05/27/2018 Patient is still in ICU, intubated and on so that the implant and Versed, fentanyl and propofol. Patient got easily agitated and follow commands when the sedatives are low doses alert. Head CT was negative as per neurology recommendation. Patient continued to be on Keppra. Check level. Repeat chest x-ray from today shows cardiomegaly. Hematology evaluation is appreciated should most likely pancytopenia is up from heavy alcohol intoxication. As per staff patient was drinking about 1 pint per day. Liver enzymes are trending down 05/28/2018 Patient got extubated today, she looks calm. She has some heart problems and she looks tired. The patient didn't complain of any specific signs and symptoms. No chest pain. No dyspnea. No change in urine bowel habits. No nausea vomiting. No shakiness or trauma. No fever. 05/29/2018 Patient seen and examined in the ICU today. Patient status post extubation. All sedatives continued. Patient is awake and does not complain from symptoms. She denies chest pain. No abdominal pain. No nausea vomiting. No change in urine or bowel habits. No dyspnea. No fever. Cipro was DC'd. Keppra level is therapeutic, neurology following the patient.. Speech Evaluation is pending. WBC 4.0. Hemoglobin 8.4. And platelets normal at 2:30. Pancytopenia looks resolving goes more due to alcohol toxicity. BMP was unremarkable 05/30/2018 pt is more stable today , she denies chest pain or dyspnea , no other complaint , pt is going to be transferred out of the icu pending bed in the general medical floor, pt is pending evaluation to be sent back to [place] to finish he detox therapy . Objective - Vital Signs Vital signs: Vital Signs Temp 99.0 F 05/30/18 12:00 Pulse 80 05/30/18 12:00 Resp 14 05/30/18 12:00 BP 117/80 05/30/18 12:00 Pulse Ox 98 05/30/18 12:00 Intake & Output 05/29/18 05/30/18 05/30/18 18:59 06:59 18:59 Intake Total 1955 1225 840 Output Total 1315 1375 250 Balance 640 -150 590 Weight 83.8 kg 83.8 kg Intake: IV 1000 1225 200 Sodium Chloride 0.9% 1, 900 825 000 ml @ 75 mls/hr IV . [id number] [facility] Rx#:[id number] Sodium Ferric Gluconat- 100 Sucrose 125 mg In Sodium Chloride 0.9% 100 ml @ 100 mls/hr IVPB DAILY [facility] Rx#:[id number] levETIRAcetam IV 750 mg 100 400 100 In Sodium Chloride 0.9% 100 ml @ 400 mls/hr IVPB Q12HR [facility] Rx#:[id number] Intake, IV Titration 200 Amount Magnesium Sulfate-D5w Pmx 200 1 gm In Dextrose/Water 1 100ml.bag @ 100 mls/hr IVPB Q1H [facility] Rx#: [id number] Oral 755 640 Output: Urine 1315 1375 250 Other: Voiding Method Indwelling Catheter Indwelling Catheter Toilet # Voids 1 - Exam -GENERAL: The patient is intubated and sedated, not in any acute distress. Well developed, well nourished. HEENT: Pupils are round and equally reacting to light. EOMI. No scleral icterus. No conjunctival pallor. Normocephalic, atraumatic. No pharyngeal erythema. No thyromegaly. CARDIOVASCULAR: S1 and S2 present. No murmurs, rubs, or gallops. PULMONARY: Chest is clear to auscultation, no wheezing or crackles. ABDOMEN: Soft, nontender, nondistended, normoactive bowel sounds. No palpable organomegaly. MUSCULOSKELETAL: No joint swelling or deformity. EXTREMITIES: No cyanosis, clubbing, or pedal edema. NEUROLOGICAL: Gross neurological examination did not reveal any focal deficits. SKIN: No rashes. - Labs CBC & Chem 7: 05/30/18 04:59 05/30/18 04:59 Labs: Abnormal Lab Results - Last 24 Hours (Table) 05/29/18 05/29/18 05/30/18 Range/Units 17:05 21:34 04:59 RBC 2.83 L (3.80-5.40) m/uL Hgb 8.5 L (11.4-16.0) gm/dL Hct 26.0 L (34.0-46.0) % Chloride (98-107) mmol/L Carbon Dioxide (22-30) mmol/L Creatinine (0.52-1.04) mg/dL Glucose (74-99) mg/dL POC Glucose (mg/dL) 132 H 109 H (75-99) mg/dL 05/30/18 05/30/18 05/30/18 Range/Units 04:59 07:34 11:52 RBC (3.80-5.40) m/uL Hgb (11.4-16.0) gm/dL Hct (34.0-46.0) % Chloride 108 H (98-107) mmol/L Carbon Dioxide 20 L (22-30) mmol/L Creatinine 0.49 L (0.52-1.04) mg/dL Glucose 108 H (74-99) mg/dL POC Glucose (mg/dL) 104 H 112 H (75-99) mg/dL Assessment and Plan Assessment: Acute alcohol withdrawal and delirium tremens Confusion and unable to protect her airway secondary to above, status post intubation History of alcohol withdrawal seizure UTI Chronic alcoholic liver disease Chronic Pancytopenia , secondary to alcoholism Plan: This is a pleasant 27 years old female who presents because of alcohol withdrawal and delirium tremens that needed intubation. Labs and medication refills. Continue with same treatment. Continue with symptomatic treatment. Monitor lytes and vitals. Pulmonary/critical care unit team were consulted. Neurology has been called for her history of seizure. Patient with pancytopenia and recommend hematology team to see patient. DVT prophylaxis. Further recommendations of the clinical course of the patient DVT prophylaxis: lovenox GI prophylaxis: Protonix prognosis is guarded
[2018-05-30 23:46] LABS: Glucose,Whole Blood 111 mg/dL (75-99)
[2018-05-31 06:27] LABS: Glucose,Whole Blood 104 mg/dL (75-99)
[2018-05-31] MEDS: INSULIN ASPART 100 UNIT/ML 1 ML 10 ML VIAL SQ SCH (06:34)
[2018-05-31 07:37] LABS: Methylmalonic Acid <0.10 umol/L (<0.40)
[2018-05-31] MEDS: PANTOPRAZOLE 40 MG TABLET PO SCH (08:50)
[2018-05-31] MEDS: ENOXAPARIN 40 MG/0.4 ML SYRINGE SQ SCH (08:50)
[2018-05-31] MEDS ORDERED: levETIRAcetam 250 MG TAB PO SCH (09:00)
--- NOTE | 2018-05-31 09:02 | P.PN ---
Subjective Progress Note Date: 05/31/18 Principal diagnosis: Acute hypoxic rest or a failure secondary to acute alcohol intoxication, and delirium tremens Progress note dated 05/28/2018 This is a 27-year-old female with acute hypoxemic respiratory failure secondary to acute alcohol withdrawal syndrome and delirium tremens. 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 Currently, the patient is sedated. We are going to do a daily interruption of sedation. Currently, her vent settings include the volume assist control mode, rate of 20, tidal volume of 400, FiO2 28% PEEP of 5. Arterial blood gases have not yet been done. Chest x-ray is normal. She is on propofol at 50 mics per kilogram per minute, fentanyl drip at 50 g per hour of Versed drip and saline at 75 mL an hour. She is also receiving vital AF at 28 with a goal of 28 mL. The patient was admitted on May 24 with alcohol withdrawal symptoms and delirium tremens and intubated on the . Progress note dated 05/29/2018 This is a 27-year-old female with a history of acute hypoxemic respiratory failure secondary to acute alcohol withdrawal syndrome and delirium tremens. She has a history of alcoholic liver disease, pancytopenia secondary to bone marrow involvement from her alcohol intake, alcohol withdrawal seizures, elevated liver function test and a history of chronic alcohol abuse with previous and right foot surgery. She also has a history of ongoing heavy tobacco use and drinks 1/5 of vodka per day. Yesterday, after evaluating her, I decided that it was time for her to be extubated. We will ahead and woke her up, and did a cuff leak test and we went ahead and extubated her to nasal cannula. The patient did develop some post extubation stridor. He was treated with Decadron 6 mg IV push every 6 hours 4 doses and also aerosolized lidocaine and a Vaponefrin. Currently she is doing relatively well. She is very stable. Currently she is on O2 at 3 L by nasal cannula and receiving IV at 75 mL an hour. She apparently developed developed some blisters difficulty swallowing and speech was called for a swallow evaluation. In addition, we had some Lovenox at 40 mg subcu daily for DVT prophylaxis. On 05/30/2018 patient seen in follow-up in the intensive care unit. She is awake and alert, oriented 3, in no acute distress, she sits up in the breakfast , room air pulse ox is 98%, vital signs are stable, she is afebrile. Lung sounds are clear to auscultation. No signs of DTs. IV 0.9 has been hep- locked. Patient did pass her swallow evaluation, and she is tolerating oral diet, currently on chopped diet. No new chest x-rays today, today's blood work has been reviewed, the WBCs 4.3, hemoglobin is 8.5, sodium is 138, potassium is 4.3, chloride is 108, CO2 is 20, BUN is 13, creatinine 0.49. Magnesium is 1.8. Sputum and urine cultures are negative. From pulmonary standpoint patient can be moved out of the intensive care unit today to general medical floor. Discontinue Staples catheter, ambulate patient. On 05/31/2018 patient seen in follow-up. Patient has been an overflow for general medical floor since yesterday. She is sitting up in bed, awake and alert, in no acute distress, denies any shortness of breath, denies any chest pain, she has ambulated, and tolerated activity well. Her IV fluids have been hep-locked, she is afebrile, room air pulse ox 95%, no acute issues overnight. Patient is awaiting transfer to the [facility] sometime today. Objective - Vital Signs Vital signs: Vital Signs Temp 98.6 F 05/31/18 08:00 Pulse 64 05/31/18 08:00 Resp 12 05/31/18 08:00 BP 103/58 05/31/18 08:00 Pulse Ox 95 05/31/18 08:55 Intake & Output 05/30/18 05/31/18 05/31/18 18:59 06:59 18:59 Intake Total 1080 240 Output Total 250 0 Balance 830 240 Weight 83.8 kg Intake: IV 200 0 Sodium Chloride 0.9% 1, 0 000 ml @ 75 mls/hr IV . [id number] [facility] Rx#:[id number] Sodium Ferric Gluconat- 100 Sucrose 125 mg In Sodium Chloride 0.9% 100 ml @ 100 mls/hr IVPB DAILY [facility] Rx#:[id number] levETIRAcetam IV 750 mg 100 In Sodium Chloride 0.9% 100 ml @ 400 mls/hr IVPB Q12HR [facility] Rx#:[id number] Oral 880 240 Output: Urine 250 0 Other: Voiding Method Toilet # Voids 2 1 - Exam No acute distress, oriented 3, on room air HEENT examination is grossly unremarkable. Mucous membranes are moist. Neck supple. Full range of motion. No adenopathy thyromegaly or neck vein distention. Minimal stridor noted. Cardiovascular examination reveals regular rhythm rate. S1-S2 normal. No S3 or S4. No discernible murmur noted. Lungs sounds are clear. Breath sounds equal bilaterally. No wheezes. No crackles. Abdomen soft bowel sounds are heard. No masses or tenderness. Extremities are intact. No cyanosis clubbing or edema. Skin is without rash or lesion. Neurologic examination is brief but nonfocal - Labs CBC & Chem 7: 05/30/18 04:59 05/30/18 04:59 Labs: Abnormal Lab Results - Last 24 Hours (Table) 05/30/18 05/30/18 05/31/18 Range/Units 11:52 23:41 06:13 POC Glucose (mg/dL) 112 H 111 H 104 H (75-99) mg/dL Assessment and Plan Plan: Assessment: Acute hypoxemic respiratory failure, with intubation on May 24, secondary to acute alcohol withdrawal and delirium tremens, Status post extubation on May 28. Post extubation stridor, treated with Decadron as well as aerosolized epinephrine and lidocaine. Alcoholic liver disease Alcohol involvement of bone marrow with pancytopenia Acute urinary tract infection History of alcohol withdrawal seizures Elevated liver enzymes secondary to alcoholic liver disease Plan: Patient is doing well, no evidence of DTs, she is awake and alert, no acute distress, vital signs are stable. No new chest x-rays or lab work. Awaiting transfer to the [facility] sometime today. I performed a history & physical examination of the patient and discussed their management with my nurse practitioner, Cecille Rios. I reviewed the nurse practitioner's note and agree with the documented findings and plan of care. Lung sounds are clear. The findings and the impression was discussed with the patient. I attest to the documentation by the nurse practitioner. Time with Patient: Less than 30
[2018-05-31] MEDS ORDERED: FERROUS SULFATE 325 MG TAB PO SCH (09:30)
[2018-05-31] MEDS: SODIUM FERRIC GLUCONAT-SUCROSE 125 MG in SODIUM CHLORIDE 0.9% 100 ML IVPB SCH (09:43)
--- NOTE | 2018-05-31 10:45 | P.DS ---
Providers Date of admission: 05/24/18 09:31 Attending physician: Gonzales Muñiz Consults: 05/24/18 13:42 Consult Physician Urgent Consulting Provider: Liza Emerson Consult Reason/Comments: ICU MANAGEMENT Do you want consulting provider notified?: Yes 05/25/18 13:34 Consult Physician Routine Consulting Provider: Priya Read Consult Reason/Comments: seizures Do you want consulting provider notified?: Yes 05/26/18 12:27 Consult Physician Routine Consulting Provider: Eddy Arias Consult Reason/Comments: pancytopenia Do you want consulting provider notified?: Yes 05/28/18 19:52 Consult Physician Routine Consulting Provider: Naseem Hurt Consult Reason/Comments: alcohol abuse Do you want consulting provider notified?: Yes, Notify in am Primary care physician: [facility] Course: On-call hospitalist covering for Dr. Muñiz This is a pleasant 27 years old female who was sent from [place] for alcohol withdrawal and delirium tremens. Patient has a long history of alcohol abuse with multiple hospitalization for the same reason. Patient still in December she drinks about 1 pint of liquor every day. On the presentation patient was delirious and agitated. She got intubated for a few days and started on several sedatives including Versed, propofol and fentanyl drips. A few days patient started improving and they weaned her off as well as got extubated. Patient currently lying in bed feeling comfortable awake and oriented. She denies chest pain. No dyspnea. No change in urine or bowel habits. No nausea or vomiting. No fever Patient also found to have pancytopenia secondary mostly to alcoholism. The patient's CT of the abdomen and pelvis confirmed diffuse fatty infiltration, as well as the spleen borderline-enlarged at 1.9 cm. patient was provided with iron therapy as per recommendation of the tunnel kiln operator. Patient has history of seizure and she was on Keppra 750 mg twice a day. Patient has been evaluated by neurologist. CT of the head no acute intracranial abnormality. Patient was stable in the hospital with no more seizure activities. Also patient has been treated for possible mild aspiration pneumonia with antibiotics. She had fever which is subsided over the last 2-3 days. And on the day of discharge patient denies any respiratory symptoms except for mild cough with scant yellow phlegm about 3 times in the whole 24 hours. Fever subsided and WBC came back to normal. She has been cleared by all consultants including the cheesemaker/pulmonary, neurologist, psychiatrist and tunnel kiln operator team for discharge Problems and management plan was discussed with the patient and she verbalized understanding Patient is found stable and can be discharged to [place] [facility] guarded prognosis. However she needs follow-up as an outpatient. Patient agrees with making appointments for her Patient is going back to [place] to finish her 21 days of detox as inpatient rehab. And she is telling me she is going to follow up is in as an outpatient rehab after that. physical exam Gen.: Patient alert awake and oriented X 3, NOT IN DISTRESS CVS: s1-s2, RRR, no murmur CHEST:bilateral CTA, no wheezing or crepitation Abdomen: Soft, no tenderness, no distention, positive bowel sounds Extremities: No leg edema or induration Time spent more than 35 minutes Patient Condition at Discharge: Stable Plan - Discharge Summary Discharge Rx Participant: No New Discharge Prescriptions: New Pantoprazole [Protonix] 40 mg PO DAILY #15 tablet. Thiamine [Vitamin B-1] 100 mg PO BID@1200,1700 30 Days #30 tab No Action levETIRAcetam [Keppra] 750 mg PO BID Discharge Medication List levETIRAcetam [Keppra] 750 mg PO BID 03/29/18 [History] Pantoprazole [Protonix] 40 mg PO DAILY #15 tablet. 05/31/18 [Rx] Thiamine [Vitamin B-1] 100 mg PO BID@1200,1700 30 Days #30 tab 05/31/18 [Rx] Follow up Appointment(s)/Referral(s): Eddy Arias MD [STAFF PHYSICIAN] - 1 Week Robert Salazar MD [Primary Care Provider] - 1-2 days Priya Read MD [STAFF PHYSICIAN] - 2 Weeks Patient Instructions/Handouts: Alcohol Withdrawal (ED) Discharge Disposition: OTHER INSTITUTION NOT DEFINED
[2018-05-31 12:26] VITALS: BP 122/77; PULSE 80; RESP 14; TEMP 98.2
[2018-05-31 13:18] LABS: Albumin 4.1 g/dL (3.5-5.0); Bilirubin, Delta 0.3 mg/dL (0.0-0.2); Bilirubin,Unconjugated 0.1 mg/dL (0.0-1.1); Total Bilirubin 0.4 mg/dL (0.2-1.3); Total Protein 7.3 g/dL (6.3-8.2)
[2018-05-31] MEDS ORDERED: SCOPOLAMINE 1.5MG/72HR PATCH TRANSDERM SCH (13:30)
[2018-05-31] MEDS: THIAMINE 100 MG TAB PO SCH (13:48)
== END 2018-05-31 16:20 | disposition designated cancer center or children's hospital (05) | DRG 896 ==
LOC: EC 05:33 → 6SEL 09:31 → 6ICU 14:03 → 2SICU 05-27 10:55
PROVIDERS: ADMIT Hospitalist; ATTEND Hospitalist
PROC: 5A1945Z Respiratory Ventilation, 24-96 Consecutive Hours (ICD-10-PCS; principal; 2018-05-24)
PROC: 0BH17EZ Insertion of Endotracheal Airway into Trachea, Via Natural or Artificial Opening (ICD-10-PCS; 2018-05-24)
PROC: 0D9670Z Drainage of Stomach with Drainage Device, Via Natural or Artificial Opening (ICD-10-PCS; 2018-05-24)
PROC: 3E0G76Z Introduction of Nutritional Substance into Upper GI, Via Natural or Artificial Opening (ICD-10-PCS; 2018-05-25)
DX: F10.231 Alcohol dependence with withdrawal delirium (principal); D61.811 Other drug-induced pancytopenia; J96.01 Acute respiratory failure with hypoxia; G93.41 Metabolic encephalopathy; J69.0 Pneumonitis due to inhalation of food and vomit; N39.0 Urinary tract infection, site not specified; J98.11 Atelectasis; K70.10 Alcoholic hepatitis without ascites; G40.909 Epilepsy, unspecified, not intractable, without status epilepticus; D50.9 Iron deficiency anemia, unspecified; I51.7 Cardiomegaly; F17.210 Nicotine dependence, cigarettes, uncomplicated; D63.8 Anemia in other chronic diseases classified elsewhere; Z79.899 Other long term (current) drug therapy; Z98.891 History of uterine scar from previous surgery; Z88.0 Allergy status to penicillin
CPT/HCPCS: 36415; 36600; 70450; 71045; 71046; 80048; 80053; 80076; 80177; 80306; 81001; 82550; 82553; 82607; 82728; 82747; 82805; 83540; 83550; 83605; 83735; 83883; 83921; 84100; 84132; 84165; 84484; 84703; 85025; 85045; 85610; 85730; 86706; 87070; 87086; 87205; 87390; 94002; 94003; 94640; 96361; 96374; 96376; 99285

== ENCOUNTER 2019-06-17 11:58 | Inpatient (IN) | payer OTHER ==
[2019-06-17 15:34] VITALS: BMI 27.3
[2019-06-17] MEDS ORDERED: NALOXONE 0.4 MG/ML 1 ML VIAL IV PRN (16:12)
[2019-06-17] MEDS ORDERED: ACETAMINOPHEN TAB 500 MG TAB PO PRN (16:14)
[2019-06-17] MEDS ORDERED: cloNIDine HCL 0.1 MG TAB PO PRN (16:14)
[2019-06-17] MEDS ORDERED: TEMAZEPAM 15 MG CAP PO PRN (16:14)
[2019-06-17] MEDS ORDERED: HYDROcodone/APAP 5-325MG 1 EACH TAB PO PRN (16:14)
[2019-06-17] MEDS ORDERED: SODIUM CHLORIDE 0.9% 1,000 ML IV SCH (16:15)
[2019-06-17] MEDS ORDERED: LORazepam 2 MG/ML INJ IV PRN (16:15)
[2019-06-17] MEDS ORDERED: THIAMINE 100 MG/ML 2 ML VIAL IM STA (16:15)
[2019-06-17] MEDS ORDERED: IBUPROFEN 600 MG TAB PO PRN (16:16)
[2019-06-17 16:25] LABS: ALT 57 U/L (9-52); AST 79 U/L (14-36); African American GFR (CKD) >90 (>60 ml/min/1.73 sqM); Albumin 3.2 g/dL (3.5-5.0); Alkaline Phosphatase 122 U/L (38-126); Anion Gap 14 mmol/L; Blood Urea Nitrogen 13 mg/dL (7-17); Calcium 7.6 mg/dL (8.4-10.2); Carbon Dioxide 20 mmol/L (22-30); Chloride 102 mmol/L (98-107); Glucose 123 mg/dL (74-99); Potassium 3.6 mmol/L (3.5-5.1); Sodium 136 mmol/L (137-145); Total Bilirubin 0.7 mg/dL (0.2-1.3); Total Protein 6.1 g/dL (6.3-8.2)
[2019-06-17] MEDS: ATOMOXETINE HCL 10 MG PO SCH (16:37)
[2019-06-17 16:39] LABS: HCT 25.7 % (34.0-46.0); HGB 9.1 gm/dL (11.4-16.0); MCH 37.4 pg (25.0-35.0); MCHC 35.6 g/dL (31.0-37.0); MCV 105.2 fL (80.0-100.0); Macrocytosis Slight; RBC 2.44 m/uL (3.80-5.40); RDW 13.2 % (11.5-15.5); WBC 7.6 k/uL (3.8-10.6)
[2019-06-17 16:41] LABS: Platelet Count 61 k/uL (150-450)
[2019-06-17] MEDS ORDERED: SODIUM CHLORIDE 0.9% 500 ML 500 ML IV ONE ×2 (16:42→17:06)
[2019-06-17] MEDS: SODIUM CHLORIDE 0.9% 1,000 ML IV SCH (16:51)
[2019-06-17] MEDS: THIAMINE 100 MG TAB PO SCH (16:52)
[2019-06-17 17:00] LABS: Band Neutrophils % 17 %; Lymphocytes # (M) 0.15 k/uL (1.0-4.8); Metamyelocytes # (M) 0.08 k/uL (0); Metamyelocytes % 1 %; Monocytes # (M) 0.08 k/uL (0-1.0); Neutrophils % (M) 81 %; Nucleated Red Blood Cells 0 /100 WBC (0-0); Total Cells Counted 200
[2019-06-17 17:01] LABS: Dohle Bodies Present
[2019-06-17] MEDS: SODIUM CHLORIDE 0.9% 1,000 ML with MVI, ADULT NO.4 WITH VIT K 10 ML, THIAMINE 100 MG, F... IV ONE ×4 (17:12)
[2019-06-17] MEDS ORDERED: THIAMINE 100 MG TAB PO SCH (17:30)
[2019-06-17] MEDS ORDERED: LEVOFLOXACIN 500MG-D5W PMX 500 MG in DEXTROSE/WATER 1 100ML.BAG IVPB SCH (18:00)
--- NOTE | 2019-06-17 18:05 | US ---
EXAMINATION TYPE: US renals and bladder DATE OF EXAM: 06/17/2019 COMPARISON: CT 2018 CLINICAL HISTORY: enlarged kidneys , UTI . Enlarged kidneys, UTI per order. Bilateral flank pain x 1 week. Hematuria per patient. EXAM MEASUREMENTS: Right Kidney: 12.8 x 6.9 x 5.3 cm Left Kidney: 12.5 x 6.3 x 5.6 cm Patient gassy, slightly limited exam due to gas and rib shadow. Right Kidney: Appears enlarged. Left Kidney: Appears enlarged. Bladder: appears to be anechoic. Bilateral Jets seen: Right jet seen. Incidental, spleen measures 13.8 cm. IMPRESSION: 1. No hydronephrosis or nephrolithiasis. Kidneys are prominent in size. 2. Incidental note is made of mild splenomegaly
[2019-06-17 18:14] LABS: Appearance,Urine Cloudy (Clear); Bacteria,Urine Rare /hpf; Bilirubin,Urine Negative (Negative); Blood,Urine Large (Negative); Color,Urine Yellow; Glucose,Urine (UA) Negative (Negative); Ketones,Urine Negative (Negative); Leukocyte Esterase,Urine Moderate (Negative); Mucus,Urine Rare /hpf; Nitrite,Urine Negative (Negative); PH, Urine 6.5 (5.0-8.0); Protein,Urine 1+ (Negative); RBC,Urine 23 /hpf (0-5); Specific Gravity,Urine 1.015 (1.001-1.035); Squamous Epithelial Cell,Urine 7 /hpf (0-4)
[2019-06-17] MEDS: ALBUTEROL NEBULIZED 2.5 MG/3 ML INHALATION SCH ×2 (19:07→19:18)
--- NOTE | 2019-06-17 19:19 | XR ---
EXAMINATION TYPE: XR chest 1V portable DATE OF EXAM: 06/17/2019 COMPARISON: 05/28/2018 HISTORY: Shortness of breath TECHNIQUE: Single frontal view of the chest is obtained. FINDINGS: There is no focal air space opacity, pleural effusion, or pneumothorax seen. The cardiac silhouette size is within normal limits. The osseous structures are intact. No overt failure. IMPRESSION: No acute process.
[2019-06-17] MEDS: LORazepam 2 MG/ML INJ IV PRN ×2 (19:50→23:18)
[2019-06-17] MEDS: IOPAMIDOL CONTRAST (ORAL USE) VIAL PO PRN ×2 (20:06→21:17)
[2019-06-17] MEDS: HEPARIN SODIUM,PORCINE 5,000 UNIT/ML 1 ML VIAL SQ SCH (20:15)
[2019-06-17] MEDS: levETIRAcetam 500 MG TAB PO SCH (20:17)
--- NOTE | 2019-06-17 21:37 | HP ---
HISTORY AND PHYSICAL CHIEF COMPLAINTS: Abdominal pain and UTI and EtOH withdrawal. HISTORY OF PRESENT ILLNESS: This 28-year-old woman with a past medical history of multiple medical problems including seizure disorder, history of section, history of DJD, ADHD, anxiety, depression, being followed by Dede Harmon in the outpatient setting also had an episode of sepsis related to UTI 2 years ago. Patient treated in [facility], improved. Currently the patient is not feeling well over the past several days. The patient was drinking heavily about a pint a day and the patient is trying to cut down on the last drink was about yesterday. The patient is complaining of lower abdominal pain. Patient also complaining of occasional cough and shortness of breath and sputum and the patient went to [facility] where the patient was found to have evidence of sepsis, elevated lactic acid, and UTI with sepsis suspected and the patient directly transferred to [facility] after discussing the case with the on-call physician. There is no history of any headache, loss of consciousness, seizures. No history of any chest pain, palpitations, hematochezia or melena at this time. PAST HISTORY: Of seizure disorder, history EtOH abuse, ADHD, anxiety, depression, nicotine dependence, previous history of sepsis. MEDICATIONS: Home medications are reviewed and include: 1. Protonix 40 mg b.i.d. 2. Vitamin B1 100 mg p.o. b.i.d. 3. Motrin 600 mg p.o. q.8 p.r.n. 4. Strattera 10 mg q.a.m. 5. Keppra 750 p.o. b.i.d. 6. ProAir 2 puffs q.4 p.r.n. ALLERGIES: CEFTRIAXONE AND PENICILLIN. FAMILY HISTORY: No history of heart disease or strokes in the family. SOCIAL HISTORY: Previous history of smoking. Occasional alcohol intake. REVIEW OF SYSTEMS: ENT: No diminished vision. No diminished hearing. CARDIOVASCULAR: No angina or palpitations. RESPIRATION: As mentioned earlier. GI no nausea or vomiting. as mentioned earlier. NERVOUS SYSTEM: As mentioned earlier. ALLERGY/IMMUNOLOGY: No asthma or hayfever. MUSCULOSKELETAL as mentioned earlier. HEMATOLOGY/ONCOLOGY: No history of anemia. ENDOCRINE: No history of diabetes or hypothyroidism. CONSTITUTIONAL: As mentioned earlier. DERMATOLOGY: Negative. RHEUMATOLOGY: Negative. PSYCHIATRY: As mentioned earlier. PHYSICAL EXAMINATION: Alert and oriented times three. Pulse is 135, blood pressure 114/70, respiration 18, temp 98.2, pulse ox 98% on room air. HEENT: Conjunctivae normal. Oral mucosa moist. Otherwise, cold sores present. NECK is no jugular venous distention. No carotid bruit. No lymph node enlargement . Cardiovascular system: S1, S2 normal. No S3, no S4. RESPIRATORY: Breath sounds diminished in the bases. Bilateral scattered rhonchi and a few crackles. ABDOMEN: Soft. Mild diffuse discomfort on palpation. No guarding. No rigidity. No mass palpable. LEGS: No edema. No swelling. NERVOUS SYSTEM: Higher functions as mentioned earlier. Moves all 4 limbs. No motor or sensory deficit. LYMPHATICS: No lymph nodes palpable in the neck, axillae or groin. JOINTS: No active deforming arthropathy. LABS: WBC 7.2, hemoglobin 10.1, and MCV 105.2. Sodium 132, potassium 3.6. Lactic acid 4.6. UA noted. ASSESSMENT: 1. Possible acute urinary tract infection with sepsis present on admission. 2. ETOH withdrawal and early delirium tremens. 3. Anemia macrocytic secondary to alcohol. 4. Thrombocytopenia. 5. Hyponatremia. 6. Elevated plasma lactic acid. 7. Hypocalcemia. 8. Increased AST and ALT, possibly alcoholic hepatitis. 9. History of previous sepsis related to urinary tract infection. 10.History of seizure disorder. 11.History of attention-deficit disorder/attention deficit hyperactivity disorder. 12.Anxiety, depression. 13.History of nicotine dependence. RECOMMENDATIONS AND DISCUSSION: In this 28-year-old woman who presented with multiple complex medical issues, we will monitor the patient closely. Continue the current medications, management symptomatic treatment. Recommend initiating intravenous antibiotics, infectious disease evaluation. I would also recommend a CT scan of the abdomen and pelvis. Symptomatic treatment. Proton pump inhibitors. Resume the home medication. Overall prognosis extremely guarded because of multiple complex medical issues. [facility] protocol for alcohol withdrawal and prognosis guarded. Further recommendations to follow. A copy of dictation forwarded to Dr. Dede Harmon who is the primary physician. MMODL / IJN: [id number] /
--- NOTE | 2019-06-17 22:10 | CT ---
EXAMINATION TYPE: CT abdomen pelvis w con DATE OF EXAM: 06/17/2019 COMPARISON: 03/30/2018 HISTORY: abdominal pain CT DLP: 970.2 mGycm Automated exposure control for dose reduction was used. TECHNIQUE: Helical acquisition of images was performed from the lung bases through the pelvis. CONTRAST: Performed without Oral Contrast and with IV Contrast, patient injected with 100 mL of Isovue 300. FINDINGS: Lung bases are clear. There is no pleural effusion. There is fatty infiltration of the liver. Spleen is intact. Stomach is intact. There is no evidence of pancreatic mass. Bile ducts are not dilated. Ga llbladder has normal size. There is no adrenal mass. There is mild left-sided hydronephrosis and slightly delayed left-sided lyle logram compared to the right. Kidneys have normal size. There is mild left-sided hydroureter. There i s probably a 5 mm calculus distal left ureter. Appendix appears normal. There is no mesenteric edema. Bladder distends smoothly. Uterus is anteverte d. There is extensive cystic enlargement of the cervical region of the uterus. This measures 4 x 3 cm . There is no ascites. There is no free air. There is minimal fat stranding and fluid at the left parac olic gutter. This is probably related to perinephric edema. Lumbar spine is intact. I see no bony elías tructive process. IMPRESSION: THERE IS MILD LEFT-SIDED HYDRONEPHROSIS AND HYDROURETER AND PROBABLY OBSTRUCTING CALCULUS DISTAL LEFT URETER AT THE URETERAL VESICLE JUNCTION. FATTY INFILTRATION OF THE LIVER. NORMAL APPENDIX. COMPLEX CYSTIC ENLARGEMENT OF THE LOWER UTERINE SEGMENT AND CERVIX WHICH APPEARS SLIGHTLY INCREASED C OMPARED TO OLD CT SCAN. CERVICAL TUMOR IS POSSIBLE. ULTRASOUND WOULD BE HELPFUL FOR FURTHER EVALUATIO N IF CLINICALLY INDICATED.
[2019-06-17] MEDS: ONDANSETRON 4 MG/2 ML VIAL IVP PRN (23:18)
[2019-06-18] MEDS: ALBUTEROL NEBULIZED 2.5 MG/3 ML INHALATION SCH ×5 (00:55→15:30)
[2019-06-18] MEDS: LORazepam 2 MG/ML INJ IV PRN ×4 (03:17→11:44)
[2019-06-18] MEDS: SODIUM CHLORIDE 0.9% 1,000 ML IV SCH (03:20)
[2019-06-18] MEDS: SODIUM CHLORIDE 0.9% 1,000 ML with MVI, ADULT NO.4 WITH VIT K 10 ML, THIAMINE 100 MG, F... IV ONE ×4 (05:17)
[2019-06-18] MEDS: THIAMINE 100 MG TAB PO SCH (05:59)
[2019-06-18 06:47] LABS: HCT 33.7 % (34.0-46.0); HGB 11.4 gm/dL (11.4-16.0); MCHC 33.7 g/dL (31.0-37.0); MCV 106.8 fL (80.0-100.0); Macrocytosis Moderate; Mean Platelet Volume 7.3; Platelet Count 53 k/uL (150-450); RBC 3.16 m/uL (3.80-5.40); RDW 13.2 % (11.5-15.5)
[2019-06-18] MEDS: ONDANSETRON 4 MG/2 ML VIAL IVP PRN (06:55)
[2019-06-18] MEDS ORDERED: PANTOPRAZOLE 40 MG TABLET PO SCH (07:30)
[2019-06-18 07:52] LABS: African American GFR (CKD) >90 (>60 ml/min/1.73 sqM); Anion Gap 15 mmol/L; Blood Urea Nitrogen 12 mg/dL (7-17); Calcium 8.5 mg/dL (8.4-10.2); Carbon Dioxide 21 mmol/L (22-30); Chloride 107 mmol/L (98-107); Glucose 102 mg/dL (74-99); Potassium 4.2 mmol/L (3.5-5.1); Sodium 143 mmol/L (137-145)
[2019-06-18] MEDS: levETIRAcetam 500 MG TAB PO SCH (08:03)
[2019-06-18] MEDS: HEPARIN SODIUM,PORCINE 5,000 UNIT/ML 1 ML VIAL SQ SCH (08:20)
[2019-06-18] MEDS: ATOMOXETINE HCL 10 MG PO SCH (08:20)
[2019-06-18 08:26] LABS: Monocytes # (M) 0.16 k/uL (0-1.0); Neutrophils % (M) 93 %; Nucleated Red Blood Cells 0 /100 WBC (0-0); Total Cells Counted 100
[2019-06-18 08:52] VITALS: RESP 18
[2019-06-18] MEDS ORDERED: FOLIC ACID 1 MG TAB PO SCH (12:00)
[2019-06-18] MEDS ORDERED: MULTIVITAMINS, THERA 1 EACH TAB PO SCH (12:00)
[2019-06-18 12:09] VITALS: BP 135/82; PULSE 115; TEMP 98.2
--- NOTE | 2019-06-18 13:24 | P.GSCN ---
History of Present Illness Consult date: 06/18/19 Reason for Consult: The patient is a 28-year-old female who was transferred from [facility] because of urinary tract infection with sepsis and alcohol intoxicat ion. Patient states that for the week prior to coming in the hospital she had abdominal pain and fever and chills nausea and vomiting. On the emergency room she was evaluated and found to have an elevated lactic acid 4.8 infected appearing urine and a computed tomography scan identifying a 5 mm distal ureteral stone on the left lateral hydronephrosis and 2 tiny stones one in each kidney. Patient who is an alcoholic has been drinking heavily for the last year. she has been incarcerated for this problem in the past. She has never had a stone. She is feeling better than she did when she was up from [facility]. There is a family history of stones. She has had a previous urine infection. There's been no blood in the urine. She has been afebrile since she is in the hospital. Her lactic acid is dropped to 1.6. White count is normal at 8000. Review of Systems - Constitutional Reports fever, Reports lethargy - Gastrointestinal Reports abdominal pain Past Medical History Past Medical History: Seizure Disorder Additional Past Medical History / Comment(s): Past obstetrical history significant for 1 section for failure to progress. ETOH abuse History of Any Multi-Drug Resistant Organisms: None Reported Past Surgical History: Section, Orthopedic Surgery Additional Past Surgical History / Comment(s): 2 rt foot sx in past Past Anesthesia/Blood Transfusion Reactions: Motion Sickness Past Psychological History: ADD/ADHD, Anxiety, Depression Smoking Status: Former smoker Past Alcohol Use History: Heavy Additional Past Alcohol Use History / Comment(s): started smoking at age 18- a pack will last 2 weeks. pt stated she drinks 4-5 days out of the week. if drinking liquour she will drink a pint of vodka or if beer she will take in 5-6 on days that she drinks Past Drug Use History: None Reported - Past Family History Father Family Medical History: No Reported History Mother Family Medical History: No Reported History Medications and Allergies Home Medications Medication Instructions Recorded Confirmed Type Albuterol Sulfate [Proair 2 puff PO RT-Q4H PRN 06/17/19 06/17/19 History Respiclick] Atomoxetine HCl [Strattera] 20 mg PO BID 06/17/19 06/17/19 History Dextroamphetamine/Amphetamine 20 mg PO BID 06/17/19 06/17/19 History [Adderall] Ibuprofen [Motrin] 600 mg PO Q8HR PRN 06/17/19 06/17/19 History levETIRAcetam [Keppra] 1,000 mg PO BID 06/17/19 06/17/19 History Allergies Allergy/AdvReac Type Severity Reaction Status Date / Time ceftriaxone Allergy Anaphylaxis Verified 06/17/19 18:29 Penicillins Allergy Unknown Verified 06/17/19 18:29 Surgical - Exam Vital Signs Temp Pulse Resp BP Pulse Ox 98.2 F 135 H 18 114/70 98 06/17/19 15:19 06/17/19 15:19 06/17/19 15:19 06/17/19 15:19 06/17/19 15:19 - General Disheveled well developed, well nourished, no distress - Eyes PERRL - ENT no hearing loss - Neck trachea midline - Respiratory normal expansion, normal respiratory effort - Cardiovascular Tachycardic, 110 - Abdomen Mild left flank pain Abdomen: soft, non tender - Neurologic normal coordination, normal sensation - Musculoskeletal normal gait, normal posture - Psychiatric oriented to time, oriented to person, oriented to place, speech is normal, memory intact Results - Labs 06/18/19 06:04 06/18/19 06:04 Abnormal Lab Results - Last 24 Hours (Table) 06/17/19 06/17/19 06/17/19 Range/Units 15:58 15:58 16:04 RBC 2.44 L (3.80-5.40) m/uL Hgb 9.1 L (11.4-16.0) gm/dL Hct 25.7 L (34.0-46.0) % MCV 105.2 H (80.0-100.0) fL MCH 37.4 H (25.0-35.0) pg Plt Count 61 L (150-450) k/uL Lymphocytes # (Manual) 0.15 L (1.0-4.8) k/uL Metamyelocytes # (Man) 0.08 H (0) k/uL Sodium 136 L (137-145) mmol/L Carbon Dioxide 20 L (22-30) mmol/L Glucose 123 H (74-99) mg/dL Plasma Lactic Acid John 4.6 H* (0.7-2.0) mmol/L Calcium 7.6 L (8.4-10.2) mg/dL AST 79 H (14-36) U/L ALT 57 H (9-52) U/L Total Protein 6.1 L (6.3-8.2) g/dL Albumin 3.2 L (3.5-5.0) g/dL Urine Appearance (Clear) Urine Protein (Negative) Urine Blood (Negative) Ur Leukocyte Esterase (Negative) Urine RBC (0-5) /hpf Urine WBC (0-5) /hpf Ur Squamous Epith Cells (0-4) /hpf Urine Bacteria (None) /hpf Urine Mucus (None) /hpf 06/17/19 06/17/19 06/18/19 Range/Units 17:40 20:24 06:04 RBC 3.16 L (3.80-5.40) m/uL Hgb (11.4-16.0) gm/dL Hct 33.7 L (34.0-46.0) % MCV 106.8 H (80.0-100.0) fL MCH 36.0 H (25.0-35.0) pg Plt Count 53 L (150-450) k/uL Lymphocytes # (Manual) 0.40 L (1.0-4.8) k/uL Metamyelocytes # (Man) (0) k/uL Sodium (137-145) mmol/L Carbon Dioxide (22-30) mmol/L Glucose (74-99) mg/dL Plasma Lactic Acid John 4.8 H* (0.7-2.0) mmol/L Calcium (8.4-10.2) mg/dL AST (14-36) U/L ALT (9-52) U/L Total Protein (6.3-8.2) g/dL Albumin (3.5-5.0) g/dL Urine Appearance Cloudy H (Clear) Urine Protein 1+ H (Negative) Urine Blood Large H (Negative) Ur Leukocyte Esterase Moderate H (Negative) Urine RBC 23 H (0-5) /hpf Urine WBC 49 H (0-5) /hpf Ur Squamous Epith Cells 7 H (0-4) /hpf Urine Bacteria Rare H (None) /hpf Urine Mucus Rare H (None) /hpf 06/18/19 Range/Units 06:04 RBC (3.80-5.40) m/uL Hgb (11.4-16.0) gm/dL Hct (34.0-46.0) % MCV (80.0-100.0) fL MCH (25.0-35.0) pg Plt Count (150-450) k/uL Lymphocytes # (Manual) (1.0-4.8) k/uL Metamyelocytes # (Man) (0) k/uL Sodium (137-145) mmol/L Carbon Dioxide 21 L (22-30) mmol/L Glucose 102 H (74-99) mg/dL Plasma Lactic Acid John (0.7-2.0) mmol/L Calcium (8.4-10.2) mg/dL AST (14-36) U/L ALT (9-52) U/L Total Protein (6.3-8.2) g/dL Albumin (3.5-5.0) g/dL Urine Appearance (Clear) Urine Protein (Negative) Urine Blood (Negative) Ur Leukocyte Esterase (Negative) Urine RBC (0-5) /hpf Urine WBC (0-5) /hpf Ur Squamous Epith Cells (0-4) /hpf Urine Bacteria (None) /hpf Urine Mucus (None) /hpf Microbiology - Last 24 Hours (Table) 06/17/19 17:40 Urine Culture - Preliminary Urine,Voided Diabetes panel 06/17/19 06/18/19 Range/Units 15:58 06:04 Sodium 136 L 143 (137-145) mmol/L Potassium 3.6 4.2 (3.5-5.1) mmol/L Chloride 102 107 (98-107) mmol/L Carbon Dioxide 20 L 21 L (22-30) mmol/L BUN 13 12 (7-17) mg/dL Creatinine 0.65 0.61 (0.52-1.04) mg/dL Glucose 123 H 102 H (74-99) mg/dL Calcium 7.6 L 8.5 (8.4-10.2) mg/dL AST 79 H (14-36) U/L ALT 57 H (9-52) U/L Alkaline Phosphatase 122 (38-126) U/L Total Protein 6.1 L (6.3-8.2) g/dL Albumin 3.2 L (3.5-5.0) g/dL Calcium panel 06/17/19 06/18/19 Range/Units 15:58 06:04 Calcium 7.6 L 8.5 (8.4-10.2) mg/dL Albumin 3.2 L (3.5-5.0) g/dL Pituitary panel 06/17/19 06/18/19 Range/Units 15:58 06:04 Sodium 136 L 143 (137-145) mmol/L Potassium 3.6 4.2 (3.5-5.1) mmol/L Chloride 102 107 (98-107) mmol/L Carbon Dioxide 20 L 21 L (22-30) mmol/L BUN 13 12 (7-17) mg/dL Creatinine 0.65 0.61 (0.52-1.04) mg/dL Glucose 123 H 102 H (74-99) mg/dL Calcium 7.6 L 8.5 (8.4-10.2) mg/dL Adrenal panel 06/17/19 06/18/19 Range/Units 15:58 06:04 Sodium 136 L 143 (137-145) mmol/L Potassium 3.6 4.2 (3.5-5.1) mmol/L Chloride 102 107 (98-107) mmol/L Carbon Dioxide 20 L 21 L (22-30) mmol/L BUN 13 12 (7-17) mg/dL Creatinine 0.65 0.61 (0.52-1.04) mg/dL Glucose 123 H 102 H (74-99) mg/dL Calcium 7.6 L 8.5 (8.4-10.2) mg/dL Total Bilirubin 0.7 (0.2-1.3) mg/dL AST 79 H (14-36) U/L ALT 57 H (9-52) U/L Alkaline Phosphatase 122 (38-126) U/L Total Protein 6.1 L (6.3-8.2) g/dL Albumin 3.2 L (3.5-5.0) g/dL - Imaging CT scan - abdomen: report reviewed, image reviewed CT scan - pelvis: report reviewed, image reviewed Assessment and Plan Assessment: Impression: Left ureteral calculus with obstruction, urinary tract infection with sepsis resolving, alcohol withdrawal Recommendations: Patient appears to responded quickly to antibiotics. Her pain is minimal. At this point in time I do not think emergent stent is necessary. We'll see how she does overnight. If she continues to improve and spontaneous passage is an option if the patient has a fever or her vital signs deteriorate then she would need a stent. I'll follow patient with you.
--- NOTE | 2019-06-18 14:54 | P.CN ---
Psychiatric Consult - . Consult date: 06/18/19 Consult:: Reason for consultation: Alcohol dependence, and depression Identifying data: Patient is a 28-year-old female who has history of depression, alcohol use disorder, ADHD, hypothyroidism, and seizure disorder. The patient was seen while she was at medical floor. Chief complaint and history of present illness: The patient was admitted to medical floor because of abdominal pain, UTI, and alcohol withdrawal. Patient reports having alcohol withdrawal symptoms including nausea, night sweating, shaking, and headache. Patient is currently receiving when necessary Ativan for alcohol withdrawal symptoms monitored by CIWA scale. She reports last time at alcohol drink was 2 nights ago. Patient reports history of depression for which she receives treatment at [facility] and she already placed on Zoloft but she couldn't recall the dose. Patient reports a stabilization of her depression symptoms and denies feeling hopeless, worthless, or suicidal. She denies any suicidal ideation, intent, or plan to hurt self or others. She denies diminished motivation, lack of interest, feeling guilty, or sleep disturbances. Patient denies any current symptoms of severe unremitting anxiety, racing thoughts, or panic attacks. She denies any current or previous history of manic symptoms including feeling inflated self-esteem, a euphoric mood, unusual increased level of energy, lack need to sleep due to increased activities, impulsive and irrational behavior. Patient denies any current or previous history of psychotic symptoms including auditory/visual hallucinations, paranoid ideation, delusions. She reports history of PTSD symptoms including nightmares and flashbacks and reliving trauma which wasn't related to previous psychological trauma when she was 5-year-old but she preferred not to talk about it now. Patient denies any history of self-injurious behavior or severe mood disturbance or personality disorder. Past psychiatric history: Previous psychiatric hospitalization: Denies any previous psychiatric hospitalization. Previous suicidal attempts: Denies any previous suicidal attempts. Previous psychiatric treatment: Reports currently connected with [facility] and she receives therapy and psychiatric medication management through [facility]. She reports currently on Zoloft but she couldn't recall the dose. Substance use history: Nicotine: Smokes about 5-10 cigarettes every week. Alcohol: Started to drink at age 20, and escalated very quickly to heavy drinking at age 21 with average 4-5m double shots and few beers every night. She reports was drinking heavily for a few years and had history of previous inpatient rehab treatment with the last time was about one year ago. She reports history of severe DTs and alcohol withdrawal seizures. She reports history of DWIs was the last time was 2011. She denies any history of using street drugs including cannabis, methamphetamine, cocaine, or heroin. Denies any history of IV drug use. Family history of psychiatric illness: Denies any family history of substance use disorder, depression, other mental illness, or suicide. Brief social history: Patient was born in [place] and moved to [place] with her parents when she was 5-year-old. Completed high school and has bachelor degree in special education. Never and has 1 daughter. Denies any history of legal problems besides been arrested related to previous DWIs. Reports history of psychological trauma when she was 5-year-old but she preferred not to talk about it. She reports symptoms of PTSD Mental status examination; Appearance: The patient appears stated age, dressed in hospital gown, no specific features. Gait/posture: Normal gait, Normal arm swinging, No abnormal movements. Attitude and behavior: engaged, cooperative, eye contact. Motor activity: Increased psychomotor activity which is most probably due to withdrawal from alcohol Speech: Normal rate, tone. Mood: Anxious Affect: Constricted Thought form: goal-directed, linear, coherent. Thought content: Non-delusional, denies suicidal thoughts, denies homicidal thoughts, denies intentions or plans. Perception: Denies any auditory or visual hallucinations Attention: No impairment. Patient was able to repeat serial 5. Orientation: Patient patient was fully oriented to time place person and situation. Insight: Patient has fair insight about his psychiatric disorder. Judgment: Patient has fair judgment about his psychiatric treatment. Assessment: Major depressive disorder, recurrent, severe without psychotic features. Post traumatic stress disorder. Alcohol use disorder, severe. Alcohol withdrawal ADHD by history Recommendations: Addressed and ensured patient's safety, patient is not actively suicidal, and she denies any active plan or intent of suicide. Patient is psychiatrically stable, and does not meet the criteria for psychiatric hospitalization. Discharge of the patient's when medically stable. At this time there is no need for further follow-up by psychiatric team. Medication management: Continue with her prior to admission psychiatric medications including Zoloft. Please contact [facility] or the patient's pharmacy to obtain information about the most recent dose of Zoloft prior to admission. Continue follow-up with [facility] after discharge for medication management. Consider taper doses of benzodiazepines for alcohol withdrawal symptoms considering the patient has history of severe withdrawal including DTs and alcohol withdrawal seizures. Individual therapy: Continue outpatient therapy with [facility] Discussed the treatment plan with the requesting physician/service. Brief supportive psychotherapy was provided regarding patient's acute and chronic stressors. Psycho-education was provided to the patient. Thank you for permitting me to assist in this patient's treatment. Please call psychiatry department if you have any question or need further help with this case. 06/18/19 14:38
[2019-06-18] MEDS ORDERED: LEVOFLOXACIN 500 MG TAB PO SCH (18:00)
--- NOTE | 2019-06-18 22:04 | PN ---
PROGRESS NOTE DATE OF SERVICE: 06/18/2019 This 28-year-old woman who was admitted with UTI with possible sepsis also had abdominal pain. The patient also had possible urolithiasis. A CT scan of the abdomen and pelvis showed mild left-sided hydronephrosis, hydroureter, and probably obstructing calculus distal left ureter at the UV junction, and complex cystic enlargement of the lower uterine segment was also noted with fatty liver. The patient had significant ETOH and apparently going through early DTs also. Patient is being closely monitored. Psychiatry evaluation in progress. Past medical history reviewed. REVIEW OF SYSTEMS: CARDIOVASCULAR SYSTEM: No angina, palpitations. RESPIRATORY SYSTEM: No cough, hemoptysis. GI: As mentioned earlier. : As mentioned earlier. NERVOUS SYSTEM: No numbness, weakness. CURRENT MEDICATIONS: Reviewed. They include: 1. Tylenol p.r.n. 2. Lindon 5 mg q.6 p.r.n. 3. Ventolin p.r.n. 4. Catapres 0.1 . 5. Folic acid 1 mg daily. 6. Heparin. 7. Motrin. 8. Keppra. 9. Levaquin. 10.Ativan. 11.Multivitamins. 12.Narcan. 13.Zofran. 14.Restoril. 15.Vitamin B1. Doses are reviewed. PHYSICAL EXAMINATION: Patient is alert, oriented x3. Pulse 115, blood pressure 135/82, respiration 18, temperature 98.2, pulse ox 99% on room air. HEENT: Conjunctivae normal. NECK: No jugular venous distention. CARDIOVASCULAR SYSTEM: S1, S2 muffled. RESPIRATORY SYSTEM: Breath sounds diminished at the bases. A few scattered rhonchi. No crackles. ABDOMEN: Soft, non-tender. LEGS: No edema. No swelling. NERVOUS SYSTEM: No focal deficit. LABS: Labs at this time show WBC 8, hemoglobin 11.4. ASSESSMENT: 1. Acute urinary tract infection with sepsis, present on admission. 2. Left-sided hydronephrosis and hydroureter, possibly caused by obstructing calculus in the left ureteral junction. 3. Ethanol withdrawal and early delirium tremens. 4. Anemia, macrocytic, secondary to alcohol. 5. Thrombocytopenia. 6. Hyponatremia. 7. Elevated plasma lactic acid. 8. Hypocalcemia. 9. Increased AST, ALT, possibly alcoholic hepatitis. 10.History of possible sepsis related to urinary tract infection previously. 11.Seizure disorder. 12.History of attention deficit disorder, attention deficit hyperactivity disorder. 13.History of anxiety, depression. 14.History of nicotine dependence. RECOMMENDATIONS AND DISCUSSION: I recommend to continue current medications, continue with the monitoring, symptomatic treatment. Continue with the antibiotics. Urology evaluation. Psychiatry evaluation appreciated. Prognosis guarded because of multiple complex medical issues. We will follow the cultures. Further recommendations to follow. MMODL / IJN: [id number] / ZITA
--- NOTE | 2019-06-19 05:42 | DS ---
DISCHARGE SUMMARY DATE OF SERVICE: 06/18/2019 FINAL DIAGNOSES: 1. Acute urinary tract infection with possible sepsis, present on admission. 2. EtOH withdrawal and early delirium tremens. 3. Anemia macrocytic secondary alcohol. 4. Thrombocytopenia. 5. Hyponatremia. 6. Elevated plasma lactic acid. 7. Hypocalcemia. 8. Increased AST, ALT, possible alcoholic hepatitis. 9. History of previous sepsis related to urinary tract infection. 10.History of seizure disorder. 11.History of attention deficit disorder, attention deficit hyperactivity disorder. 12.Depression. 13.History of nicotine dependence. 14.History of anxiety. DISCHARGE DISPOSITION: The patient left the hospital AGAINST MEDICAL ADVICE. HISTORY OF PRESENT ILLNESS: This 28-year-old woman with a past medical history of multiple medical problems admitted with acute urinary tract infection and multiple other complex medical issues. Patient also had some DTs, however, the patient is not willing to stay and the patient signed against herself. Please refer to multiple notes for information. The prognosis remains guarded. Psychiatry also saw the patient. MMODL / IJN: [id number] /
== END 2019-06-18 16:31 | disposition left against medical advice (07) | DRG 872 ==
LOC: 3SCARD 15:17
PROVIDERS: ADMIT Internal Medicine; ATTEND Internal Medicine
DX: A41.9 Sepsis, unspecified organism (principal); E87.1 Hypo-osmolality and hyponatremia; F10.231 Alcohol dependence with withdrawal delirium; N13.6 Pyonephrosis; D53.9 Nutritional anemia, unspecified; D69.6 Thrombocytopenia, unspecified; E83.51 Hypocalcemia; F32.9 Major depressive disorder, single episode, unspecified; F41.9 Anxiety disorder, unspecified; G40.909 Epilepsy, unspecified, not intractable, without status epilepticus; K76.0 Fatty (change of) liver, not elsewhere classified; Z87.891 Personal history of nicotine dependence; Z98.891 History of uterine scar from previous surgery; Z88.1 Allergy status to other antibiotic agents; Z88.0 Allergy status to penicillin; Z79.1 Long term (current) use of non-steroidal anti-inflammatories (NSAID); Z79.899 Other long term (current) drug therapy; K70.10 Alcoholic hepatitis without ascites
CPT/HCPCS: 71045; 74177; 76770; 80048; 80053; 81001; 83605; 83735; 84703; 85025; 87040; 87086; 87502; 94640; 94760

== ENCOUNTER 2019-11-28 18:50 | Inpatient (IN) | payer OTHER ==
[2019-11-28] MEDS ORDERED: SODIUM CHLORIDE 0.9% 1,000 ML IV STA ×2 (19:08→20:05)
[2019-11-28] MEDS ORDERED: ONDANSETRON 4 MG/2 ML VIAL IVP STA (19:22)
[2019-11-28] MEDS ORDERED: MORPHINE SULFATE 4 MG/ML SYRINGE IVP STA (19:22)
[2019-11-28 19:30] LABS: Basophils % (A) 1 %; Eosinophils # (A) 0.1 k/uL (0-0.7); Eosinophils % (A) 1 %; Lymphocytes # (A) 0.8 k/uL (1.0-4.8); Lymphocytes % (A) 15 %; MCH 36.1 pg (25.0-35.0); MCHC 33.1 g/dL (31.0-37.0); MCV 108.8 fL (80.0-100.0); Macrocytosis Marked; Monocytes # (A) 0.5 k/uL (0-1.0); Monocytes % (A) 8 %; Neutrophils # (A) 3.9 k/uL (1.3-7.7); Neutrophils % (A) 73 %; RDW 14.6 % (11.5-15.5); WBC 5.3 k/uL (3.8-10.6)
[2019-11-28 19:42] LABS: ALT 68 U/L (4-34); AST 430 U/L (14-36); African American GFR (CKD) >90 (>60 ml/min/1.73 sqM); Albumin 3.5 g/dL (3.5-5.0); Alkaline Phosphatase 375 U/L (38-126); Amylase 188 U/L (30-110); Anion Gap 14 mmol/L; Blood Urea Nitrogen 4 mg/dL (7-17); Calcium 7.8 mg/dL (8.4-10.2); Carbon Dioxide 23 mmol/L (22-30); Chloride 102 mmol/L (98-107); Glucose 117 mg/dL (74-99); Non-African American GFR(CKD) >90 (>60 ml/min/1.73 sqM); Potassium 3.4 mmol/L (3.5-5.1); Sodium 139 mmol/L (137-145); Total Bilirubin 2.8 mg/dL (0.2-1.3); Total Protein 6.7 g/dL (6.3-8.2)
[2019-11-28 19:44] LABS: Bacteria,Urine Rare /hpf; Mucus,Urine Rare /hpf; RBC,Urine 37 /hpf (0-5); Squamous Epithelial Cell,Urine <1 /hpf (0-4); WBC,Urine 11 /hpf (0-5)
[2019-11-28 19:46] LABS: INR 1.1 (<1.2); Partial Thromboplastin Time 24.2 sec (22.0-30.0); Prothrombin Time 11.7 sec (9.0-12.0)
[2019-11-28 19:47] LABS: Appearance,Urine Clear (Clear)
[2019-11-28 19:48] LABS: Color,Urine Orange
[2019-11-28 19:51] LABS: Alcohol 392 mg/dL
[2019-11-28 20:07] LABS: HCT 18.5 % (34.0-46.0); HGB 6.1 gm/dL (11.4-16.0)
[2019-11-28 20:28] LABS: Platelet Count 89 k/uL (150-450)
--- NOTE | 2019-11-28 21:45 | US ---
EXAMINATION TYPE: US transvaginal DATE OF EXAM: 11/28/2019 COMPARISON: 03/29/2018 CLINICAL HISTORY: bleeding. Vaginal bleeding x 3 months with clots. Hx . Hx 2 miscarriages. . TECHNIQUE: Transvaginal (TV). Date of LMP: Unknown EXAM MEASUREMENTS: Uterus: 9.3 x 4.6 x 4.0 cm Endometrial Stripe: 0.35 cm Right Ovary: 3.3 x 2.9 x 1.7 cm Left Ovary: 3.1 x 1.8 x 2.0 cm 1. Uterus: Anteverted Septated complex area seen in cervix that measures 2.4 x 1.8 x 1.6 cm. Multi ple anechoic areas seen in cervix. 2. Endometrium: Appears to be wnl. 3. Right Ovary: Anechoic area seen measurin.4 x 1.3 x 0.8 cm. 4. Left Ovary: Limited due to depth and position posterior to the uterus. Hypoechoic area seen measu rin.4 x 1.4 x 1.2 cm. Spectral, color and waveform doppler imaging shows arterial and venous flow within the ovaries. 5. Bilateral Adnexa: Appear to be wnl. 6. Posterior cul-de-sac: Appears to be wnl. IMPRESSION: Multiple cervical cysts. Negative transvaginal pelvic sonogram. No adverse change compared to old exa m. No evidence of ovarian torsion.
[2019-11-28] MEDS ORDERED: ONDANSETRON 4 MG/2 ML VIAL IVP PRN (22:27)
[2019-11-28] MEDS ORDERED: HYDROmorphone 0.5 MG/0.5 ML SYRINGE IVP PRN (22:27)
[2019-11-28] MEDS ORDERED: NALOXONE 0.4 MG/ML 1 ML VIAL IV PRN (22:27)
--- NOTE | 2019-11-28 22:27 | ED ---
General Adult HPI - General Source: patient, RN notes reviewed Mode of arrival: EMS Limitations: no limitations <Josafat Pedraza - Last Filed: 11/28/19 23:38> <Amanda Mcclellan - Last Filed: 11/30/19 13:49> - General Chief complaint: Vaginal Bleeding Stated complaint: Vaginal Bleeding Time Seen by Provider: 11/28/19 19:00 - History of Present Illness Initial comments: 29-year-old female with a history of 2 miscarriages presents to the emergency department for a chief complaint of vaginal bleeding 3 months. Patient states she has had vaginal bleeding for 3 months on and off. States that she was going to see an FINAL APPLICATION REVIEWER at [facility] but does not know their name and never had an appointment. Patient states she has been feeling a little lightheaded on and off for the past few weeks. Patient states that she was seen at [facility] yesterday and left because she had to take care of some things at home. States that she was told she may have something wrong with her gallbladder and that her liver enzymes are high. Patient does admit to chronic alcoholism. States she has not been drinking much lately.Patient has no other complaints at this time including shortness of breath, chest pain, abdominal pain, nausea or vomiting, headache, or visual changes. (Josafat Pedraza) - Related Data Home Medications Medication Instructions Recorded Confirmed Dextroamphetamine/Amphetamine 20 mg PO BID PRN 06/17/19 11/28/19 [Adderall] levETIRAcetam [Keppra] 1,000 mg PO BID 06/17/19 11/28/19 LORazepam [Ativan] 1 - 2 mg PO Q6HR PRN 11/28/19 11/28/19 Ondansetron HCl [Zofran] 8 mg PO Q8HR PRN 11/28/19 11/28/19 Potassium Chloride ER [K-Dur 10] 20 mg PO DAILY 11/28/19 11/28/19 Vitamin C (Unknown Dose) 1 tab PO DAILY 11/28/19 11/28/19 Allergies Allergy/AdvReac Type Severity Reaction Status Date / Time ceftriaxone Allergy Anaphylaxis Verified 11/28/19 22:42 Penicillins Allergy Rash/Hives Verified 11/28/19 22:42 Review of Systems ROS Other: All systems not noted in ROS Statement are negative. <Josafat Pedraza P - Last Filed: 11/28/19 23:38> ROS Other: All systems not noted in ROS Statement are negative. <Amanda Mcclellan - Last Filed: 11/30/19 13:49> ROS Statement: Those systems with pertinent positive or pertinent negative responses have been documented in the HPI. Past Medical History Past Medical History: Seizure Disorder Additional Past Medical History / Comment(s): Past obstetrical history significant for 1 section for failure to progress. ETOH abuse History of Any Multi-Drug Resistant Organisms: None Reported Past Surgical History: Section, Orthopedic Surgery Additional Past Surgical History / Comment(s): 2 rt foot sx in past Past Anesthesia/Blood Transfusion Reactions: Motion Sickness Past Psychological History: ADD/ADHD, Anxiety, Depression Smoking Status: Former smoker Past Alcohol Use History: Abuse Past Drug Use History: None Reported - Past Family History Father Family Medical History: No Reported History Mother Family Medical History: No Reported History <Josafat Pedraza P - Last Filed: 11/28/19 23:38> General Exam Limitations: no limitations General appearance: alert, in no apparent distress Head exam: Present: atraumatic, normocephalic, normal inspection Eye exam: Present: normal appearance, PERRL, EOMI. Absent: scleral icterus, conjunctival injection, periorbital swelling ENT exam: Present: normal exam, mucous membranes moist Neck exam: Present: normal inspection, full ROM. Absent: tenderness, meningismus, lymphadenopathy Respiratory exam: Present: normal lung sounds bilaterally. Absent: respiratory distress, wheezes, rales, rhonchi, stridor Cardiovascular Exam: Present: regular rate, normal rhythm, normal heart sounds. Absent: systolic murmur, diastolic murmur, rubs, gallop, clicks GI/Abdominal exam: Present: soft, tenderness (Mild upper abdominal tenderness generalized in nature.), normal bowel sounds. Absent: distended, guarding, rebound, rigid External exam: Present: normal external exam. Absent: erythema, swelling, lesions, lacerations, ecchymosis Speculum exam: Present: vaginal bleeding (Moderate vaginal bleeding on exam). Absent: normal speculum exam, erythema, vaginal discharge By manual exam: Present: normal by manual exam. Absent: cervical motion tenderness, adnexal tenderness, adnexal mass, uterine enlargement, uterine tenderness, other Neurological exam: Present: alert Psychiatric exam: Present: normal affect, normal mood <Josafat Pedraza - Last Filed: 11/28/19 23:38> Course Vital Signs 11/28/19 11/28/19 11/28/19 18:56 20:38 22:10 Temperature 97.8 F 98.3 F 98.2 F Pulse Rate 124 H 110 H 110 H Respiratory 20 16 20 Rate Blood Pressure 138/94 110/76 116/75 O2 Sat by Pulse 100 100 100 Oximetry 11/28/19 11/28/19 22:15 22:25 Temperature 98.2 F 98 F Pulse Rate 110 H 109 H Respiratory 20 18 Rate Blood Pressure 116/75 101/65 O2 Sat by Pulse 100 100 Oximetry Medical Decision Making - Lab Data Result diagrams: 11/28/19 17:56 11/28/19 17:56 <Josafat Pedraza - Last Filed: 11/28/19 23:38> - Lab Data Result diagrams: 11/30/19 07:17 11/30/19 07:17 <Amanda Mcclellan - Last Filed: 11/30/19 13:49> - Medical Decision Making Vitals are stable however patient is mildly tachycardic around 110. Pelvic exam did reveal moderate vaginal bleeding. She did have tenderness in the upper abdomen as well. CBC was obtained and shows a hemoglobin of 6.1. It appears patient has been anemic in the past however this is significantly more anemic than she has been. Patient also has macrocytosis and thermal cytopenia consistent with chronic alcoholism. Total bilirubin is found to be 2.8 with associated transaminitis and elevated pancreatic enzymes. Ultrasound report obtained from outside facility showed mild thickening of gallbladder chun, cannot exclude acalculous cholecystitis. Patient was started on Flagyl and Levaquin given penicillin ALLERGY. Surgery will be consulted. Patient was transfused with 1 unit of packed red blood cells here in the emergency department. FINAL APPLICATION REVIEWER mailroom personnel will be consulted for vaginal bleeding. Dr. Mcclellan spoke with Dr. Ma extensively about this patient and he does accept the admission. Patient will also be started on CIWA given alcohol of 390. (Josafat Pedraza) I was available for consultation in the emergency department. The history and physical exam were done by the midlevel provider. I was consulted for this patients care. I reviewed the case with the midlevel provider and based on their presentation of the patient, I agree with the assessment, medical decision making and plan of care as documented. I discussed the case with Dr. Jauregui who accepted admission of the patient. Chart was dictated using [employer] dictation software. Attempts were made to correct any dictation errors however some typographical errors may persist. Patient was seen during a national state of emergency due to the Covid-19 pandemic. (Amanda Mcclellan) - Lab Data Lab Results 11/28/19 11/28/19 11/28/19 Range/Units 17:56 17:56 17:56 WBC (3.8-10.6) k/uL RBC (3.80-5.40) m/uL Hgb (11.4-16.0) gm/dL Hct (34.0-46.0) % MCV (80.0-100.0) fL MCH (25.0-35.0) pg MCHC (31.0-37.0) g/dL RDW (11.5-15.5) % Plt Count (150-450) k/uL Neutrophils % % Lymphocytes % % Monocytes % % Eosinophils % % Basophils % % Neutrophils # (1.3-7.7) k/uL Lymphocytes # (1.0-4.8) k/uL Monocytes # (0-1.0) k/uL Eosinophils # (0-0.7) k/uL Basophils # (0-0.2) k/uL Manual Slide Review Macrocytosis PT 11.7 (9.0-12.0) sec INR 1.1 (<1.2) APTT 24.2 (22.0-30.0) sec Sodium 139 (137-145) mmol/L Potassium 3.4 L (3.5-5.1) mmol/L Chloride 102 (98-107) mmol/L Carbon Dioxide 23 (22-30) mmol/L Anion Gap 14 mmol/L BUN 4 L (7-17) mg/dL Creatinine 0.47 L (0.52-1.04) mg/dL Est GFR (CKD-EPI)AfAm >90 (>60 ml/min/1.73 sqM) Est GFR (CKD-EPI)NonAf >90 (>60 ml/min/1.73 sqM) Glucose 117 H (74-99) mg/dL Calcium 7.8 L (8.4-10.2) mg/dL Magnesium (1.6-2.3) mg/dL Total Bilirubin 2.8 H (0.2-1.3) mg/dL AST 430 H (14-36) U/L ALT 68 H (4-34) U/L Alkaline Phosphatase 375 H (38-126) U/L Total Protein 6.7 (6.3-8.2) g/dL Albumin 3.5 (3.5-5.0) g/dL Amylase 188 H (30-110) U/L Lipase 1146 H (23-300) U/L Urine Color Urine Appearance (Clear) Urine RBC (0-5) /hpf Urine WBC (0-5) /hpf Ur Squamous Epith Cells (0-4) /hpf Urine Bacteria (None) /hpf Urine Mucus (None) /hpf Urine HCG, Qual Not Detected (Not Detectd) Serum Alcohol 392 H* mg/dL Blood Type Blood Type Recheck Bld Type Recheck Status Antibody Screen Crossmatch Spec Expiration Date 11/28/19 11/28/19 11/28/19 Range/Units 17:56 17:56 17:56 WBC 5.3 (3.8-10.6) k/uL RBC 1.70 L (3.80-5.40) m/uL Hgb 6.1 L* (11.4-16.0) gm/dL Hct 18.5 L* (34.0-46.0) % MCV 108.8 H (80.0-100.0) fL MCH 36.1 H (25.0-35.0) pg MCHC 33.1 (31.0-37.0) g/dL RDW 14.6 (11.5-15.5) % Plt Count 89 L (150-450) k/uL Neutrophils % 73 % Lymphocytes % 15 % Monocytes % 8 % Eosinophils % 1 % Basophils % 1 % Neutrophils # 3.9 (1.3-7.7) k/uL Lymphocytes # 0.8 L (1.0-4.8) k/uL Monocytes # 0.5 (0-1.0) k/uL Eosinophils # 0.1 (0-0.7) k/uL Basophils # 0.0 (0-0.2) k/uL Manual Slide Review Performed Macrocytosis Marked A PT (9.0-12.0) sec INR (<1.2) APTT (22.0-30.0) sec Sodium (137-145) mmol/L Potassium (3.5-5.1) mmol/L Chloride (98-107) mmol/L Carbon Dioxide (22-30) mmol/L Anion Gap mmol/L BUN (7-17) mg/dL Creatinine (0.52-1.04) mg/dL Est GFR (CKD-EPI)AfAm (>60 ml/min/1.73 sqM) Est GFR (CKD-EPI)NonAf (>60 ml/min/1.73 sqM) Glucose (74-99) mg/dL Calcium (8.4-10.2) mg/dL Magnesium 1.6 (1.6-2.3) mg/dL Total Bilirubin (0.2-1.3) mg/dL AST (14-36) U/L ALT (4-34) U/L Alkaline Phosphatase (38-126) U/L Total Protein (6.3-8.2) g/dL Albumin (3.5-5.0) g/dL Amylase (30-110) U/L Lipase (23-300) U/L Urine Color [place] Urine Appearance Clear (Clear) Urine RBC 37 H (0-5) /hpf Urine WBC 11 H (0-5) /hpf Ur Squamous Epith Cells <1 (0-4) /hpf Urine Bacteria Rare H (None) /hpf Urine Mucus Rare H (None) /hpf Urine HCG, Qual (Not Detectd) Serum Alcohol mg/dL Blood Type Blood Type Recheck Bld Type Recheck Status Antibody Screen Crossmatch Spec Expiration Date 11/28/19 Range/Units 20:49 WBC (3.8-10.6) k/uL RBC (3.80-5.40) m/uL Hgb (11.4-16.0) gm/dL Hct (34.0-46.0) % MCV (80.0-100.0) fL MCH (25.0-35.0) pg MCHC (31.0-37.0) g/dL RDW (11.5-15.5) % Plt Count (150-450) k/uL Neutrophils % % Lymphocytes % % Monocytes % % Eosinophils % % Basophils % % Neutrophils # (1.3-7.7) k/uL Lymphocytes # (1.0-4.8) k/uL Monocytes # (0-1.0) k/uL Eosinophils # (0-0.7) k/uL Basophils # (0-0.2) k/uL Manual Slide Review Macrocytosis PT (9.0-12.0) sec INR (<1.2) APTT (22.0-30.0) sec Sodium (137-145) mmol/L Potassium (3.5-5.1) mmol/L Chloride (98-107) mmol/L Carbon Dioxide (22-30) mmol/L Anion Gap mmol/L BUN (7-17) mg/dL Creatinine (0.52-1.04) mg/dL Est GFR (CKD-EPI)AfAm (>60 ml/min/1.73 sqM) Est GFR (CKD-EPI)NonAf (>60 ml/min/1.73 sqM) Glucose (74-99) mg/dL Calcium (8.4-10.2) mg/dL Magnesium (1.6-2.3) mg/dL Total Bilirubin (0.2-1.3) mg/dL AST (14-36) U/L ALT (4-34) U/L Alkaline Phosphatase (38-126) U/L Total Protein (6.3-8.2) g/dL Albumin (3.5-5.0) g/dL Amylase (30-110) U/L Lipase (23-300) U/L Urine Color Urine Appearance (Clear) Urine RBC (0-5) /hpf Urine WBC (0-5) /hpf Ur Squamous Epith Cells (0-4) /hpf Urine Bacteria (None) /hpf Urine Mucus (None) /hpf Urine HCG, Qual (Not Detectd) Serum Alcohol mg/dL Blood Type B Positive Blood Type Recheck B Pos Bld Type Recheck Status No Antibody Screen NEGATIVE Crossmatch See Detail Spec Expiration Date 12/01/2019 - 234 Critical Care Time Critical Care Time: Yes <Amanda Mcclellan - Last Filed: 11/30/19 13:49> Critical Care Time: 30 minutes for transfusion of blood products (Amanda Mcclellan) Disposition Is patient prescribed a controlled substance at d/c from ED?: No Time of Disposition: 22:27 <Josafat Pedraza - Last Filed: 11/28/19 23:38> <Amanda Mcclellan - Last Filed: 11/30/19 13:49> Clinical Impression: Menorrhagia, Acalculous cholecystitis, ETOH abuse, Transaminitis Disposition: ADMITTED IP TO THIS HOSP Condition: Fair
[2019-11-28] MEDS ORDERED: LORazepam 2 MG/ML INJ IV PRN ×2 (22:29)
[2019-11-28] MEDS ORDERED: THIAMINE 100 MG/ML 2 ML VIAL IM STA (22:29)
[2019-11-28] MEDS ORDERED: LEVOFLOXACIN 750MG-D5W PMX 750 MG in DEXTROSE/WATER 1 150ML.BAG IVPB STA (22:30)
[2019-11-28] MEDS ORDERED: metroNIDAZOLE-NS PMX 500 MG in SALINE 1 100ML.BAG IVPB STA (22:31)
[2019-11-28] MEDS ORDERED: ONDANSETRON 4 MG TAB PO PRN (23:30)
[2019-11-29] MEDS: SODIUM CHLORIDE 0.9% 1,000 ML IV SCH ×3 (00:44→20:29)
[2019-11-29] MEDS: levETIRAcetam 500 MG TAB PO SCH ×3 (00:55→20:28)
[2019-11-29] MEDS: LEVOFLOXACIN 750MG-D5W PMX 750 MG in DEXTROSE/WATER 1 150ML.BAG IVPB SCH (02:17)
[2019-11-29] MEDS: metroNIDAZOLE-NS PMX 500 MG in SALINE 1 100ML.BAG IVPB SCH ×3 (03:42→19:35)
[2019-11-29] MEDS: METOCLOPRAMIDE 5 MG/ML 2 ML VIAL IVP PRN ×2 (05:57→14:22)
[2019-11-29] MEDS: LORazepam 2 MG/ML INJ IV PRN ×5 (06:06→20:28)
[2019-11-29 08:31] LABS: Anisocytosis Slight; Basophils % (A) 0 %; Eosinophils % (A) 2 %; Lymphocytes # (A) 0.3 k/uL (1.0-4.8); Lymphocytes % (A) 12 %; MCH 33.5 pg (25.0-35.0); MCHC 32.6 g/dL (31.0-37.0); Macrocytosis Moderate; Mean Platelet Volume 9.1; Monocytes # (A) 0.2 k/uL (0-1.0); Monocytes % (A) 9 %; Neutrophils # (A) 2.1 k/uL (1.3-7.7); Neutrophils % (A) 76 %; RBC 1.72 m/uL (3.80-5.40); RDW 18.4 % (11.5-15.5); WBC 2.8 k/uL (3.8-10.6)
[2019-11-29 08:33] LABS: ALT 60 U/L (4-34); AST 281 U/L (14-36); African American GFR (CKD) >90 (>60 ml/min/1.73 sqM); Albumin 2.8 g/dL (3.5-5.0); Alkaline Phosphatase 294 U/L (38-126); Anion Gap 12 mmol/L; Blood Urea Nitrogen 2 mg/dL (7-17); Carbon Dioxide 23 mmol/L (22-30); Chloride 101 mmol/L (98-107); Glucose 87 mg/dL (74-99); Non-African American GFR(CKD) >90 (>60 ml/min/1.73 sqM); Potassium 3.2 mmol/L (3.5-5.1); Sodium 136 mmol/L (137-145); Total Bilirubin 2.3 mg/dL (0.2-1.3); Total Protein 5.6 g/dL (6.3-8.2)
--- NOTE | 2019-11-29 08:36 | P.GSCN ---
History of Present Illness Consult date: 11/29/19 Reason for Consult: Elevated liver enzymes History of present illness: 29-year-old female presents to the hospital with vaginal bleeding. Patient with history of chronic heavy alcohol abuse and underlying liver issues related to that. Patient was found to be anemic which appears to be a chronic issue for her. She has anemia dating back several years. Patient still drinking heavily on a daily basis. Liver enzymes and pancreatic enzymes both elevated significantly. Denies abdominal pain. Patient had an ultrasound at an outside institution showing a thickened gallbladder wall without stones. Patient does have some intermittent nausea and vomiting. Patient is a poor historian. GI has not been consulted. Patient previously seen by hematology for her pancytopenia. Review of Systems The patient denies any acute changes in vision or hearing, no dysphagia or odynophagia, no chest pain or shortness of breath, no dysuria or hematuria, no headache, no runny nose, no rectal bleeding or melena, no unexplained weight loss Past Medical History Past Medical History: Seizure Disorder Additional Past Medical History / Comment(s): Past obstetrical history significant for 1 section for failure to progress. ETOH abuse History of Any Multi-Drug Resistant Organisms: None Reported Past Surgical History: Section, Orthopedic Surgery Additional Past Surgical History / Comment(s): 2 rt foot sx in past Past Anesthesia/Blood Transfusion Reactions: Motion Sickness Past Psychological History: ADD/ADHD, Anxiety, Depression Smoking Status: Former smoker Past Alcohol Use History: Abuse Past Drug Use History: None Reported - Past Family History Father Family Medical History: No Reported History Mother Family Medical History: No Reported History Medications and Allergies Home Medications Medication Instructions Recorded Confirmed Type Dextroamphetamine/Amphetamine 20 mg PO BID PRN 06/17/19 11/28/19 History [Adderall] levETIRAcetam [Keppra] 1,000 mg PO BID 06/17/19 11/28/19 History LORazepam [Ativan] 1 - 2 mg PO Q6HR PRN 11/28/19 11/28/19 History Ondansetron HCl [Zofran] 8 mg PO Q8HR PRN 11/28/19 11/28/19 History Potassium Chloride ER [K-Dur 10] 20 mg PO DAILY 11/28/19 11/28/19 History Vitamin C (Unknown Dose) 1 tab PO DAILY 11/28/19 11/28/19 History Allergies Allergy/AdvReac Type Severity Reaction Status Date / Time ceftriaxone Allergy Anaphylaxis Verified 11/28/19 22:42 Penicillins Allergy Rash/Hives Verified 11/28/19 22:42 Surgical - Exam Vital Signs Temp Pulse Resp BP Pulse Ox 97.8 F 124 H 20 138/94 100 11/28/19 18:56 11/28/19 18:56 11/28/19 18:56 11/28/19 18:56 11/28/19 18:56 Physical exam: General: Well-developed, well-nourished HEENT: Normocephalic, sclerae nonicteric Abdomen: Nontender, nondistended Extremities: No edema Neuro: Alert and oriented Results - Labs 11/28/19 17:56 11/28/19 17:56 Abnormal Lab Results - Last 24 Hours (Table) 11/28/19 11/28/19 11/28/19 Range/Units 17:56 17:56 17:56 RBC 1.70 L (3.80-5.40) m/uL Hgb 6.1 L* (11.4-16.0) gm/dL Hct 18.5 L* (34.0-46.0) % MCV 108.8 H (80.0-100.0) fL MCH 36.1 H (25.0-35.0) pg Plt Count 89 L (150-450) k/uL Lymphocytes # 0.8 L (1.0-4.8) k/uL Macrocytosis Marked A Potassium 3.4 L (3.5-5.1) mmol/L BUN 4 L (7-17) mg/dL Creatinine 0.47 L (0.52-1.04) mg/dL Glucose 117 H (74-99) mg/dL Calcium 7.8 L (8.4-10.2) mg/dL Total Bilirubin 2.8 H (0.2-1.3) mg/dL AST 430 H (14-36) U/L ALT 68 H (4-34) U/L Alkaline Phosphatase 375 H (38-126) U/L Amylase 188 H (30-110) U/L Lipase 1146 H (23-300) U/L Urine RBC 37 H (0-5) /hpf Urine WBC 11 H (0-5) /hpf Urine Bacteria Rare H (None) /hpf Urine Mucus Rare H (None) /hpf Serum Alcohol 392 H* mg/dL Crossmatch 11/28/19 Range/Units 20:49 RBC (3.80-5.40) m/uL Hgb (11.4-16.0) gm/dL Hct (34.0-46.0) % MCV (80.0-100.0) fL MCH (25.0-35.0) pg Plt Count (150-450) k/uL Lymphocytes # (1.0-4.8) k/uL Macrocytosis Potassium (3.5-5.1) mmol/L BUN (7-17) mg/dL Creatinine (0.52-1.04) mg/dL Glucose (74-99) mg/dL Calcium (8.4-10.2) mg/dL Total Bilirubin (0.2-1.3) mg/dL AST (14-36) U/L ALT (4-34) U/L Alkaline Phosphatase (38-126) U/L Amylase (30-110) U/L Lipase (23-300) U/L Urine RBC (0-5) /hpf Urine WBC (0-5) /hpf Urine Bacteria (None) /hpf Urine Mucus (None) /hpf Serum Alcohol mg/dL Crossmatch See Detail Microbiology - Last 24 Hours (Table) 11/28/19 17:56 Urine Culture - Preliminary Urine,Voided Diabetes panel 11/28/19 Range/Units 17:56 Sodium 139 (137-145) mmol/L Potassium 3.4 L (3.5-5.1) mmol/L Chloride 102 (98-107) mmol/L Carbon Dioxide 23 (22-30) mmol/L BUN 4 L (7-17) mg/dL Creatinine 0.47 L (0.52-1.04) mg/dL Glucose 117 H (74-99) mg/dL Calcium 7.8 L (8.4-10.2) mg/dL AST 430 H (14-36) U/L ALT 68 H (4-34) U/L Alkaline Phosphatase 375 H (38-126) U/L Total Protein 6.7 (6.3-8.2) g/dL Albumin 3.5 (3.5-5.0) g/dL Thyroid panel 11/29/19 Range/Units 00:28 TSH 1.880 (0.465-4.680) mIU/L Calcium panel 11/28/19 Range/Units 17:56 Calcium 7.8 L (8.4-10.2) mg/dL Albumin 3.5 (3.5-5.0) g/dL Pituitary panel 11/28/19 11/29/19 Range/Units 17:56 00:28 Sodium 139 (137-145) mmol/L Potassium 3.4 L (3.5-5.1) mmol/L Chloride 102 (98-107) mmol/L Carbon Dioxide 23 (22-30) mmol/L BUN 4 L (7-17) mg/dL Creatinine 0.47 L (0.52-1.04) mg/dL Glucose 117 H (74-99) mg/dL Calcium 7.8 L (8.4-10.2) mg/dL TSH 1.880 (0.465-4.680) mIU/L Adrenal panel 11/28/19 Range/Units 17:56 Sodium 139 (137-145) mmol/L Potassium 3.4 L (3.5-5.1) mmol/L Chloride 102 (98-107) mmol/L Carbon Dioxide 23 (22-30) mmol/L BUN 4 L (7-17) mg/dL Creatinine 0.47 L (0.52-1.04) mg/dL Glucose 117 H (74-99) mg/dL Calcium 7.8 L (8.4-10.2) mg/dL Total Bilirubin 2.8 H (0.2-1.3) mg/dL AST 430 H (14-36) U/L ALT 68 H (4-34) U/L Alkaline Phosphatase 375 H (38-126) U/L Total Protein 6.7 (6.3-8.2) g/dL Albumin 3.5 (3.5-5.0) g/dL Assessment and Plan (1) Transaminitis Narrative/Plan: 29-year-old female with admission for vaginal bleeding. Patient found to have significant liver enzyme elevation and pancreatic enzyme elevation most likely related to her history of heavy alcohol abuse. No evidence for cholecystitis clinically at this time. No plans for cholecystectomy or further workup. Recommend GI evaluation to evaluate degree of hepatic dysfunction and to discuss with patient the impact her alcohol abuse is having on her liver function and possible complications related to that. Current Visit: Yes Status: Acute Code(s): R74.0 - NONSPEC ELEV OF LEVELS OF TRANSAMNS & LACTIC ACID DEHYDRGNSE SNOMED Code(s): 078322523
[2019-11-29 08:37] LABS: HCT 17.6 % (34.0-46.0); HGB 5.7 gm/dL (11.4-16.0); MCV 102.6 fL (80.0-100.0)
[2019-11-29 08:38] LABS: Platelet Count 52 k/uL (150-450)
[2019-11-29] MEDS ORDERED: levETIRAcetam 500 MG TAB PO SCH (09:00)
[2019-11-29] MEDS: THIAMINE 100 MG TAB PO SCH ×2 (09:09→17:39)
--- NOTE | 2019-11-29 09:32 | P.OBCN ---
History of Present Illness Consult date: 11/29/19 Requesting physician: Alfredo Ma Reason for consult: menorrhagia Chief complaint: Vaginal bleeding History of present illness: This is a 29-year-old female 1 para 1 who presents with an approximately three-month history of irregular heavy bleeding. Her history is somewhat unreliable. She told the ER in [place] that the bleeding had been going on for 1 month. She states the bleeding is off-and-on and sometimes slows for approximately 1 day and then starts up again. She states she has to change a pad every 15 minutes when the bleeding is heaviest. She does state she has a h istory of irregular periods for a number of years and usually would only bleeding every couple months. She states her normal menses will last approximately 7 days. She has not seen a private branch exchange repairer for this problem since it started 3 months ago. She is sexually active and not currently using anything for control. She states she is not trying to get but she does want to in the future. Her current beta hCG level is negative. She was seen by my partner, Dr. Duke, in consultation when she was in the hospital in March 2018 for similar reasons. She did follow up with him 1 time in the office and did have a Pap smear and cultures done at that time. Her cultures were negative for STDs but she did have a Pap smear showing atypical squamous cells of undetermined significance with positive high risk HPV. She was scheduled for a colposcopy and did not show for that. She was discharged from our office after that. Patient states currently she is nauseated and occasionally dizzy. She does complain of some mild cramping more in the right lower quadrant. Obstetrical history: . History of a section at full-term at [facility] approximately 7 years ago. Gynecologic history: No history of sexually transmitted diseases. She has been with her current partner for the last 3-1/2 years. She does have a history of a Pap smear showing ASCUS with positive high-risk HPV in May 2018. Review of Systems Gastrointestinal: Reports nausea Genitourinary: Reports abnormal vaginal bleeding, Reports dysmenorrhea, Reports menorrhagia Menstruation: Reports menses 8 or > days, Reports menses variable, Reports period heavy Past Medical History Past Medical History: Liver Disease, Seizure Disorder Additional Past Medical History / Comment(s): Past obstetrical history significant for 1 section for failure to progress. ETOH abuse History of Any Multi-Drug Resistant Organisms: None Reported Past Surgical History: Section, Orthopedic Surgery Additional Past Surgical History / Comment(s): 2 rt foot sx in past Past Anesthesia/Blood Transfusion Reactions: Motion Sickness Past Psychological History: ADD/ADHD, Anxiety, Depression Smoking Status: Former smoker Past Alcohol Use History: Abuse, Daily Additional Past Alcohol Use History / Comment(s): She states she drinks 1 pint of vodka daily. She states she has to have a drink in the morning when she wakes up to control her tremors and nausea. She does state that she has been to rehab in the past and it does not work for her. She states she does better doing it on her own. Past Drug Use History: None Reported - Past Family History Father Family Medical History: No Reported History Mother Family Medical History: No Reported History Medications and Allergies Home Medications Medication Instructions Recorded Confirmed Type Dextroamphetamine/Amphetamine 20 mg PO BID PRN 06/17/19 11/28/19 History [Adderall] levETIRAcetam [Keppra] 1,000 mg PO BID 06/17/19 11/28/19 History LORazepam [Ativan] 1 - 2 mg PO Q6HR PRN 11/28/19 11/28/19 History Ondansetron HCl [Zofran] 8 mg PO Q8HR PRN 11/28/19 11/28/19 History Potassium Chloride ER [K-Dur 10] 20 mg PO DAILY 11/28/19 11/28/19 History Vitamin C (Unknown Dose) 1 tab PO DAILY 11/28/19 11/28/19 History Allergies Allergy/AdvReac Type Severity Reaction Status Date / Time ceftriaxone Allergy Anaphylaxis Verified 11/28/19 22:42 Penicillins Allergy Rash/Hives Verified 11/28/19 22:42 Exam Osteopathic Statement: *. No significant issues noted on an osteopathic structural exam other than those noted in the History and Physical/Consult. Vital Signs Temp Pulse Pulse Resp BP BP Pulse Ox 11/29/19 05:49 98.5 F 117 H 16 118/80 100 11/29/19 00:34 98.1 F 106 H 16 110/59 99 11/28/19 23:00 98 F 107 H 18 125/84 100 11/28/19 22:25 98 F 109 H 18 101/65 100 11/28/19 22:15 98.2 F 110 H 20 116/75 100 11/28/19 22:10 98.2 F 110 H 20 116/75 100 11/28/19 20:38 98.3 F 110 H 16 110/76 100 11/28/19 18:56 97.8 F 124 H 20 138/94 100 Intake and Output 11/28/19 11/29/19 11/29/19 22:59 06:59 14:59 Intake Total 0 960 Balance 0 960 Intake: Intake, IV Titration 650 Amount Sodium Chloride 0.9% 1, 450 000 ml @ 75 mls/hr IV . [id number] Rx#:[id number] metroNIDAZOLE-NS PMX 500 100 mg In Saline 1 100ml.bag @ 100 mls/hr IVPB ONCE STA Rx#:[id number] metroNIDAZOLE-NS PMX 500 100 mg In Saline 1 100ml.bag @ 100 mls/hr IVPB Q8H [facility] Rx#:[id number] Blood Product 0 310 Rc As-1 Unit 0 310 [id number] Other: Voiding Method Toilet # Voids 1 Weight 68.039 kg 68.039 kg - OBG Physical Exam Abdomen detail: right lower quadrant: tenderness (Mild tenderness to palpation) Vagina: Her kurt-pad is examined and shows scant serosanguineous discharge with no clots noted. The patient does state that she just changed it not too long ago. Results Pelvic ultrasound report shows a lining thickness of 0.35 centimeters and normal sized uterus. Small follicle cysts are noted on both ovaries. There are nabothian cysts noted that had previously been noted on past ultrasounds. Result Diagrams: 11/29/19 07:27 11/29/19 07:27 Abnormal Lab Results - Last 24 Hours (Table) 11/28/19 11/28/19 11/28/19 Range/Units 17:56 17:56 17:56 WBC (3.8-10.6) k/uL RBC 1.70 L (3.80-5.40) m/uL Hgb 6.1 L* (11.4-16.0) gm/dL Hct 18.5 L* (34.0-46.0) % MCV 108.8 H (80.0-100.0) fL MCH 36.1 H (25.0-35.0) pg RDW (11.5-15.5) % Plt Count 89 L (150-450) k/uL Lymphocytes # 0.8 L (1.0-4.8) k/uL Macrocytosis Marked A Sodium (137-145) mmol/L Potassium 3.4 L (3.5-5.1) mmol/L BUN 4 L (7-17) mg/dL Creatinine 0.47 L (0.52-1.04) mg/dL Glucose 117 H (74-99) mg/dL Calcium 7.8 L (8.4-10.2) mg/dL Total Bilirubin 2.8 H (0.2-1.3) mg/dL AST 430 H (14-36) U/L ALT 68 H (4-34) U/L Alkaline Phosphatase 375 H (38-126) U/L Total Protein (6.3-8.2) g/dL Albumin (3.5-5.0) g/dL Amylase 188 H (30-110) U/L Lipase 1146 H (23-300) U/L Urine RBC 37 H (0-5) /hpf Urine WBC 11 H (0-5) /hpf Urine Bacteria Rare H (None) /hpf Urine Mucus Rare H (None) /hpf Serum Alcohol 392 H* mg/dL Crossmatch 11/28/19 11/29/19 11/29/19 Range/Units 20:49 07:27 07:27 WBC 2.8 L (3.8-10.6) k/uL RBC 1.72 L (3.80-5.40) m/uL Hgb 5.7 L* (11.4-16.0) gm/dL Hct 17.6 L* (34.0-46.0) % MCV 102.6 H D (80.0-100.0) fL MCH (25.0-35.0) pg RDW 18.4 H (11.5-15.5) % Plt Count 52 L (150-450) k/uL Lymphocytes # 0.3 L (1.0-4.8) k/uL Macrocytosis Sodium 136 L (137-145) mmol/L Potassium 3.2 L (3.5-5.1) mmol/L BUN 2 L (7-17) mg/dL Creatinine 0.45 L (0.52-1.04) mg/dL Glucose (74-99) mg/dL Calcium 7.0 L (8.4-10.2) mg/dL Total Bilirubin 2.3 H (0.2-1.3) mg/dL AST 281 H (14-36) U/L ALT 60 H (4-34) U/L Alkaline Phosphatase 294 H (38-126) U/L Total Protein 5.6 L (6.3-8.2) g/dL Albumin 2.8 L (3.5-5.0) g/dL Amylase (30-110) U/L Lipase (23-300) U/L Urine RBC (0-5) /hpf Urine WBC (0-5) /hpf Urine Bacteria (None) /hpf Urine Mucus (None) /hpf Serum Alcohol mg/dL Crossmatch See Detail Microbiology - Last 24 Hours (Table) 11/28/19 17:56 Urine Culture - Preliminary Urine,Voided US - abdomen: report reviewed Assessment and Plan (1) Chronic anemia Current Visit: Yes Status: Acute Code(s): D64.9 - ANEMIA, UNSPECIFIED SNOMED Code(s): 100177070 (2) Dysfunctional uterine bleeding Current Visit: No Status: Chronic Code(s): N93.8 - OTHER SPECIFIED ABNORMAL UTERINE AND VAGINAL BLEEDING SNOMED Code(s): 45161260232387 Plan: It appears this patient's dysfunctional bleeding has been ongoing for several years now aced on her history. It also appears she has been chronically anemic when reviewing records over the past few years. Her dysfunctional bleeding is most likely due to her alcoholism and liver disease. She is not a candidate for any hormonal control of her bleeding due to her liver disease. I also do not recommend a D&C at this time since her lining is not thickened and a D&C may actually increase her bleeding with her liver disease and low platelet count. The patient doesn't wish to have future fertility and therefore an endometrial ablation is not recommended. My only recommendation at this time is to replace her blood and to try to correct her liver abnormalities as best as possible. She will need outpatient follow-up for a repeat Pap smear after discharge. I can arrange that when she is ready for discharge. I also recommend GI consultation for her liver disease and alcoholism. She may also benefit from psychiatric consultation. I am currently off and Dr. Duke is covering until Monday at 8 AM. Please contact him if you have any further questions.
[2019-11-29] MEDS ORDERED: Potassium Replacement Protocol 1 EACH MISC MISCELLANE PRN (09:48)
[2019-11-29] MEDS ORDERED: Magnesium Replacement Protocol 1 EACH MISC MISCELLANE PRN (09:52)
--- NOTE | 2019-11-29 13:15 | XR ---
EXAMINATION TYPE: XR KUB DATE OF EXAM: 11/29/2019 COMPARISON: None INDICATION: Right lower quadrant pain abdominal vaginal bleeding TECHNIQUE: Single view abdomen supine view FINDINGS: There is a normal bowel gas pattern. Air and fecal debris is within the colon. Descending colon is so mewhat more prominent air-filled no suspicious changes suggest obstruction. Psoas margins are normal. No organomegaly is present. IMPRESSION: 1. Nonspecific abdomen
[2019-11-29] MEDS ORDERED: ACETAMINOPHEN TAB 325 MG TAB PO STA (13:57)
[2019-11-29] MEDS: POTASSIUM CHLORIDE ER 20 MEQ TAB.ER PO SCH ×2 (14:13→16:01)
--- NOTE | 2019-11-29 16:36 | HP ---
HISTORY AND PHYSICAL A 29-year-old white female came in to the hospital. History of 2 miscarriages. Vaginal bleeding for 3 months. Never seen a green plumber which is being ordered now at this point. She also was in [place] yesterday for acute cholecystitis and alcoholic pancreatitis for which she is admitted to the hospital now as well as vaginal bleeding with a hemoglobin of 6. She is being transfused a unit of blood. 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 Denies any shortness of breath, chest pain, abdominal pain, nausea, vomiting, headache, visual changes, HOME MEDICINES: Apparently she takes Adderall 20 b.i.d., Keppra 1000 b.i.d., Ativan 1-2 q.6 hours, potassium chloride 20 mEq a day, Zofran 8 mg q.8 hours p.r.n., vitamin C daily. ALLERGIES: To PENICILLIN, CIPRO. 14-POINT REVIEW OF SYSTEMS: Negative except for as mentioned in HPI. PAST MEDICAL HISTORY: Seizure disorder, for failure to progress. Ethanol abuse, orthopedic surgery, . She has screws in the right foot from one orthopedic surgery. History of anxiety, depression, ADHD. Former smoker, alcohol abuse. FAMILY HISTORY: Father, mother unknown. She looks her stated age. CARDIOVASCULAR: S1, S2. LUNGS: Clear. GI: Shows tenderness to palpation, diffuse across the abdomen. No mass. No guarding. EXTREMITIES: No cyanosis, clubbing, edema. NEUROLOGIC: Cranial nerves are intact. PSYCH: Fair mood and affect. Heart rate is 110-124, temp 97 to 98, blood pressure is 110 to 130s/75-91, respiratory rate 18 to 20. HEMATOLOGY: Negative Homans. Hemoglobin 6.1. ASSESSMENT: Severe anemia secondary to vaginal bleeding, acute elevated lipase and amylase secondary to alcoholic/acute cholecystitis versus chronic alcoholic pancreatitis. Surgical consult, [facility] protocol. Transfuse blood. Replace potassium for hypokalemia. She is negative for . Please see further orders. H and P for menorrhagia, acalculous cholecystitis, alcohol abuse, transaminitis, pancreatitis, vaginal bleeding. MMODL / IJN: [id number] /
--- NOTE | 2019-11-29 17:27 | CONS ---
CONSULTATION DATE OF SERVICE: 11/29/2019 REASON FOR CONSULTATION: Requesting physician Melita reason for consultation severe anemia, elevated LFTs and history of alcohol use. HISTORY OF PRESENT ILLNESS: The patient is a 29-year-old white female who presents to the hospital with severe vaginal bleeding. She has history of heavy alcohol abuse for the last 15 years duration and when she came into the emergency room complaining of fatigue, weakness, abdominal pain, and lightheadedness. She was noted to have a hemoglobin of 6.5 g/dL and also noted to have jaundice with elevated LFTs and hence we are consulted in regard to this issue. The patient is quite cranky this afternoon, does not want to give most of the history. She has indicated that all the doctors are asking her the same questions most of the history was obtained from the nursing staff in the patient's chart. Apparently, she has heavy alcohol abuse, drinks a pint a day for the last 15 years. Does not recall having any liver disease in the past. No history of jaundice or hepatitis before. She denies any abdominal pain. She denies any rectal bleeding or melena. In fact, she states that she has been having severe constipation and did not have a bowel movement for one month. Prior to 3 months, she was having regular bowel movements. Most of her symptoms started about 3 months ago. PAST MEDICAL HISTORY: Significant for seizure disorder, heavy alcohol abuse. SURGICAL HISTORY: , orthopedic surgery with the left foot surgery. MEDICATIONS: At home include Adderall, Keppra, Ativan, vitamin C, potassium chloride, and Zofran. ALLERGIES: CEFTRIAXONE and PENICILLIN. SOCIAL HISTORY: Former smoker. Heavy alcohol abuse. FAMILY HISTORY: Unremarkable. REVIEW OF SYSTEMS: CARDIOPULMONARY: She denies any chest pain or shortness of breath. GI: As mentioned earlier. : No dysuria, hematuria. MUSCULOSKELETAL: Unremarkable. ENDOCRINE: Unremarkable. PSYCHIATRIC: History of seizure disorder. ENT: Vision unremarkable. CONSTITUTIONAL: No recent weight loss. No fever, chills, night sweats. HEMATOLOGY: Severe anemia. PHYSICAL EXAMINATION: She appears comfortable. Blood pressure 112/73, pulse rate 130, temperature 99.5. HEENT: Examination unremarkable, conjunctivae are pink, sclerae nonicteric, oral cavity no lesions. NECK: No JVD or lymph node enlargement. CHEST: Clear to auscultation. HEART: Regular rate and rhythm. ABDOMEN: Soft. Bowel sounds are positive. No organomegaly. Mild tenderness in the right upper quadrant area. There was hepatomegaly noted. EXTREMITIES: No pedal edema. SKIN: No rashes. NEUROLOGIC: Alert and oriented x3. No focal deficits. LABS: WBC 5.3, hemoglobin 6.1, platelets 89, 000. AST and ALT of 430 and 60 respectively. T- bilirubin is 2.8, alkaline phosphatase 375, amylase 180 and lipase 1146. Serum alcohol 392. INR 1.1. IMPRESSION: 1. Severe symptomatic microcytic anemia which is multifactorial in etiology. Most of it is probably related to excessive vaginal bleeding. AUDIO VISUAL COLLECTIONS COORDINATOR has been consulted who will be evaluating the patient shortly. No evidence of active GI bleed. 2. History of heavy alcohol abuse. 3. Elevated LFTs and jaundice with a bilirubin of 2.3 and AST more than ALT, all consistent with chronic alcoholic liver disease. 4. Thrombocytopenia, secondary to probably underlying severe portal hypertension from chronic alcoholic liver disease. 5. Elevated amylase and lipase consistent with mild pancreatitis secondary to alcohol abuse. RECOMMENDATIONS: 1. Await AUDIO VISUAL COLLECTIONS COORDINATOR recommendations. 2. Agree with blood transfusion. 3. Abstinence from alcohol. 4. No need for any EGD or colonoscopy at the present time. 5. Had a lengthy discussion with the patient regarding abstinence from alcohol. 6. Will start her on MiraLAX for constipation. 7. Continue Protonix 40 mg daily. 8. No plans on any endoscopy intervention at the present time. Will follow with you closely. Thank you for this consultation. CRYS / CANDIDON: [id number] /
--- NOTE | 2019-11-29 17:31 | P.CONS ---
History of Present Illness - Reason for Consult Consult date: 11/29/19 Pancytopenia Requesting physician: Josafat Pedraza - Chief Complaint Menses Heavy, dizziness - History of Present Illness Janette is a 29 year old female who is known for previous admissions secondary to alcoholism. She apparently presented to [facility] first although left AMA because of things she had to do at home. She presented to [facility] as [place] told her that she may need her gallbladder out. On presentation her blood alcohol level over 300, hemoglobin 4.7, platelets 62K, and LFTs increased. Lipase and amylase increased. And today her WBC have started to decrease. In the past she has presented with similiar results including elevated liver function and pancytopenia. She stated she has been having her period for months, on and off and heavier than normal. She admits to still drinking daily, although states she has been cutting back. Overall she is tired and not very responsive to questions, poor historian. Review of Systems A 14 point review assessed and completed and all neg except HPI, patient is poor historian Past Medical History Past Medical History: Liver Disease, Seizure Disorder Additional Past Medical History / Comment(s): Past obstetrical history significant for 1 section for failure to progress. ETOH abuse History of Any Multi-Drug Resistant Organisms: None Reported Past Surgical History: Section, Orthopedic Surgery Additional Past Surgical History / Comment(s): 2 rt foot sx in past Past Anesthesia/Blood Transfusion Reactions: Motion Sickness Past Psychological History: ADD/ADHD, Anxiety, Depression Smoking Status: Former smoker Past Alcohol Use History: Abuse, Daily Additional Past Alcohol Use History / Comment(s): She states she drinks 1 pint of vodka daily. She states she has to have a drink in the morning when she wakes up to control her tremors and nausea. She does state that she has been to rehab in the past and it does not work for her. She states she does better doing it on her own. Past Drug Use History: None Reported - Past Family History Father Family Medical History: No Reported History Mother Family Medical History: No Reported History Medications and Allergies Home Medications Medication Instructions Recorded Confirmed Type Dextroamphetamine/Amphetamine 20 mg PO BID PRN 06/17/19 11/28/19 History [Adderall] levETIRAcetam [Keppra] 1,000 mg PO BID 06/17/19 11/28/19 History LORazepam [Ativan] 1 - 2 mg PO Q6HR PRN 11/28/19 11/28/19 History Ondansetron HCl [Zofran] 8 mg PO Q8HR PRN 11/28/19 11/28/19 History Potassium Chloride ER [K-Dur 10] 20 mg PO DAILY 11/28/19 11/28/19 History Vitamin C (Unknown Dose) 1 tab PO DAILY 11/28/19 11/28/19 History Allergies Allergy/AdvReac Type Severity Reaction Status Date / Time ceftriaxone Allergy Anaphylaxis Verified 11/28/19 22:42 Penicillins Allergy Rash/Hives Verified 11/28/19 22:42 Physical Exam Vitals: Vital Signs Temp Pulse Pulse Resp BP BP Pulse Ox 11/29/19 14:06 99.2 F 119 H 20 117/69 100 11/29/19 12:21 99.5 F 120 H 20 112/73 98 11/29/19 11:51 98.5 F 122 H 18 125/62 100 11/29/19 11:41 98.4 F 118 H 16 119/75 100 11/29/19 11:32 99.2 F 124 H 18 115/67 100 11/29/19 05:49 98.5 F 117 H 16 118/80 100 11/29/19 00:34 98.1 F 106 H 16 110/59 99 11/28/19 23:00 98 F 107 H 18 125/84 100 11/28/19 22:25 98 F 109 H 18 101/65 100 11/28/19 22:15 98.2 F 110 H 20 116/75 100 11/28/19 22:10 98.2 F 110 H 20 116/75 100 11/28/19 20:38 98.3 F 110 H 16 110/76 100 11/28/19 18:56 97.8 F 124 H 20 138/94 100 Intake and Output 11/29/19 11/29/19 11/29/19 06:59 14:59 22:59 Intake Total 960 310 Balance 960 310 Intake: Intake, IV Titration 650 Amount Sodium Chloride 0.9% 1, 450 000 ml @ 75 mls/hr IV . [id number] [facility] Rx#:[id number] metroNIDAZOLE-NS PMX 500 100 mg In Saline 1 100ml.bag @ 100 mls/hr IVPB ONCE STA Rx#:[id number] metroNIDAZOLE-NS PMX 500 100 mg In Saline 1 100ml.bag @ 100 mls/hr IVPB Q8H [facility] Rx#:[id number] Blood Product 310 310 Rc As-1 Unit 310 [id number] Rc Pheresis 2 As3 Unit 310 [id number] Other: Voiding Method Toilet Toilet # Voids 1 Weight 68.039 kg Gen: Alert, Lethargic Head: NCAT Neck: SUPPLE Lungs: CTA rodolfo Heart: Tachy, reg Abd: Guarded tender Ex: No edema Mood: Flat and disengaged Results CBC & Chem 7: 11/29/19 07:27 11/29/19 07:27 Labs: Abnormal Lab Results - Last 24 Hours (Table) 11/28/19 11/28/19 11/28/19 Range/Units 17:56 17:56 17:56 WBC (3.8-10.6) k/uL RBC 1.70 L (3.80-5.40) m/uL Hgb 6.1 L* (11.4-16.0) gm/dL Hct 18.5 L* (34.0-46.0) % MCV 108.8 H (80.0-100.0) fL MCH 36.1 H (25.0-35.0) pg RDW (11.5-15.5) % Plt Count 89 L (150-450) k/uL Lymphocytes # 0.8 L (1.0-4.8) k/uL Macrocytosis Marked A Sodium (137-145) mmol/L Potassium 3.4 L (3.5-5.1) mmol/L BUN 4 L (7-17) mg/dL Creatinine 0.47 L (0.52-1.04) mg/dL Glucose 117 H (74-99) mg/dL Calcium 7.8 L (8.4-10.2) mg/dL Magnesium (1.6-2.3) mg/dL Total Bilirubin 2.8 H (0.2-1.3) mg/dL AST 430 H (14-36) U/L ALT 68 H (4-34) U/L Alkaline Phosphatase 375 H (38-126) U/L Total Protein (6.3-8.2) g/dL Albumin (3.5-5.0) g/dL Amylase 188 H (30-110) U/L Lipase 1146 H (23-300) U/L Urine RBC 37 H (0-5) /hpf Urine WBC 11 H (0-5) /hpf Urine Bacteria Rare H (None) /hpf Urine Mucus Rare H (None) /hpf Serum Alcohol 392 H* mg/dL Crossmatch 11/28/19 11/29/19 11/29/19 Range/Units 20:49 07:27 07:27 WBC 2.8 L (3.8-10.6) k/uL RBC 1.72 L (3.80-5.40) m/uL Hgb 5.7 L* (11.4-16.0) gm/dL Hct 17.6 L* (34.0-46.0) % MCV 102.6 H D (80.0-100.0) fL MCH (25.0-35.0) pg RDW 18.4 H (11.5-15.5) % Plt Count 52 L (150-450) k/uL Lymphocytes # 0.3 L (1.0-4.8) k/uL Macrocytosis Sodium 136 L (137-145) mmol/L Potassium 3.2 L (3.5-5.1) mmol/L BUN 2 L (7-17) mg/dL Creatinine 0.45 L (0.52-1.04) mg/dL Glucose (74-99) mg/dL Calcium 7.0 L (8.4-10.2) mg/dL Magnesium (1.6-2.3) mg/dL Total Bilirubin 2.3 H (0.2-1.3) mg/dL AST 281 H (14-36) U/L ALT 60 H (4-34) U/L Alkaline Phosphatase 294 H (38-126) U/L Total Protein 5.6 L (6.3-8.2) g/dL Albumin 2.8 L (3.5-5.0) g/dL Amylase (30-110) U/L Lipase (23-300) U/L Urine RBC (0-5) /hpf Urine WBC (0-5) /hpf Urine Bacteria (None) /hpf Urine Mucus (None) /hpf Serum Alcohol mg/dL Crossmatch See Detail 11/29/19 Range/Units 07:27 WBC (3.8-10.6) k/uL RBC (3.80-5.40) m/uL Hgb (11.4-16.0) gm/dL Hct (34.0-46.0) % MCV (80.0-100.0) fL MCH (25.0-35.0) pg RDW (11.5-15.5) % Plt Count (150-450) k/uL Lymphocytes # (1.0-4.8) k/uL Macrocytosis Sodium (137-145) mmol/L Potassium (3.5-5.1) mmol/L BUN (7-17) mg/dL Creatinine (0.52-1.04) mg/dL Glucose (74-99) mg/dL Calcium (8.4-10.2) mg/dL Magnesium 1.3 L (1.6-2.3) mg/dL Total Bilirubin (0.2-1.3) mg/dL AST (14-36) U/L ALT (4-34) U/L Alkaline Phosphatase (38-126) U/L Total Protein (6.3-8.2) g/dL Albumin (3.5-5.0) g/dL Amylase (30-110) U/L Lipase (23-300) U/L Urine RBC (0-5) /hpf Urine WBC (0-5) /hpf Urine Bacteria (None) /hpf Urine Mucus (None) /hpf Serum Alcohol mg/dL Crossmatch Microbiology - Last 24 Hours (Table) 11/28/19 17:56 Urine Culture - Preliminary Urine,Voided Assessment and Plan Plan: Assessment and Plan Pancytopenia: - The patient's CT of the abdomen and pelvis confirmed diffuse fatty infiltration, as well as the spleen borderline-enlarged at 1.9 cm. - Therefore the etiology of the pancytopenia is most likely bone marrow suppression from alcohol. In this patient's case, additional stress due to alc ohol withdrawal, as well as ongoing menstruation can also be contoured in. Given that the spleen is borderline in size, could also be an element of splenic sequestration. - WBC and platelets are in a safe range. They can be followed with monitoring. Transfuse PRBC to keep hemoglobin greater than 7. - Labs will be ordered to rule out any deficiency states, or other etiologies. - The patient will need follow-up after discharge to monitor for recovery of counts, assuming that she stays off the alcohol. Leukopenia with lymphocytopenia: - This has been present even back at her 2018 admissions, and most likely related to bone marrow suppression from her chronic alcohol use and significant anemia Macrocytic anemia: - Likely related to acute on chronic blood loss through menses, exacerbated with chronic daily alcohol use and underlying liver disease from alcoholism - Transfuse PRBC for hemoglobin less than 7 - Continue to monitor bleeding Thrombocytopenia - Within safe range above 50K, although if heavy bleeding would recommend transfusion less than 50K or if less than 10K Alcohol withdrawal Patient currently being treated per protocol. B12 and folate levels ordered ETOH level on arrival 362 ^^ Pancreatitis - General surgery did consult regarding potential of cholecystitis although no evidence to relate to that at this time. Increased Liver Function - Secondary to underlying liver disease and ETOH Hypokalemia, Hypomagnesia - Secondary to decreased PO intake as a result of ETOH Hyperbilirubinemia
[2019-11-29 18:16] LABS: C Reactive Protein <5.0 mg/L (<10.0); LDH 800 U/L (313-618)
[2019-11-29] MEDS ORDERED: METOPROLOL TARTRATE 12.5 MG TAB PO SCH (21:00)
[2019-11-29] MEDS ORDERED: PANTOPRAZOLE 40 MG/10 ML VIAL IVP SCH (21:00)
[2019-11-29 21:36] LABS: Anisocytosis Slight; Basophils % (A) 0 %; Eosinophils % (A) 1 %; HCT 25.8 % (34.0-46.0); Lymphocytes # (A) 0.4 k/uL (1.0-4.8); Lymphocytes % (A) 8 %; MCH 32.6 pg (25.0-35.0); Macrocytosis Slight; Mean Platelet Volume 9.3; Monocytes # (A) 0.4 k/uL (0-1.0); Monocytes % (A) 8 %; Neutrophils # (A) 3.9 k/uL (1.3-7.7); Neutrophils % (A) 81 %; Poikilocytosis Slight; RBC 2.69 m/uL (3.80-5.40); RDW 19.9 % (11.5-15.5); WBC 4.7 k/uL (3.8-10.6)
[2019-11-29 21:41] LABS: HGB 8.8 gm/dL (11.4-16.0); MCV 95.9 fL (80.0-100.0); Platelet Count 72 k/uL (150-450)
[2019-11-29 22:57] LABS: Reticulocyte % 5.27 % (0.10-1.80)
[2019-11-29 23:16] LABS: % Iron Saturation 15.36 (12.00-45.00); Iron 41 ug/dL (50-170); Rheumatoid Factor, Qnt <4 IU/mL (0-15); Total Iron Binding Capacity 267 ug/dL (228-460)
[2019-11-30] MEDS: LEVOFLOXACIN 750MG-D5W PMX 750 MG in DEXTROSE/WATER 1 150ML.BAG IVPB SCH (00:23)
[2019-11-30] MEDS: metroNIDAZOLE-NS PMX 500 MG in SALINE 1 100ML.BAG IVPB SCH (02:19)
[2019-11-30] MEDS: LORazepam 2 MG/ML INJ IV PRN (02:21)
[2019-11-30] MEDS: SODIUM CHLORIDE 0.9% 1,000 ML IV SCH (02:25)
[2019-11-30 06:23] VITALS: BP 121/81; RESP 20; TEMP 98.4
[2019-11-30 07:40] LABS: Anisocytosis Moderate; Basophils % (A) 1 %; Eosinophils % (A) 1 %; HCT 23.5 % (34.0-46.0); Lymphocytes # (A) 0.3 k/uL (1.0-4.8); Lymphocytes % (A) 9 %; MCH 32.5 pg (25.0-35.0); MCHC 33.9 g/dL (31.0-37.0); MCV 95.9 fL (80.0-100.0); Macrocytosis Slight; Mean Platelet Volume 9.5; Monocytes # (A) 0.3 k/uL (0-1.0); Monocytes % (A) 11 %; Neutrophils # (A) 2.3 k/uL (1.3-7.7); Neutrophils % (A) 76 %; Poikilocytosis Slight; RBC 2.45 m/uL (3.80-5.40); RDW 20.1 % (11.5-15.5)
[2019-11-30 07:48] LABS: Platelet Count 64 k/uL (150-450)
[2019-11-30 08:03] LABS: ALT 52 U/L (4-34); AST 250 U/L (14-36); African American GFR (CKD) >90 (>60 ml/min/1.73 sqM); Albumin 2.8 g/dL (3.5-5.0); Alkaline Phosphatase 298 U/L (38-126); Amylase 74 U/L (30-110); Anion Gap 8 mmol/L; Blood Urea Nitrogen <2 mg/dL (7-17); Calcium 7.6 mg/dL (8.4-10.2); Carbon Dioxide 26 mmol/L (22-30); Chloride 97 mmol/L (98-107); Glucose 89 mg/dL (74-99); Magnesium 1.1 mg/dL (1.6-2.3); Non-African American GFR(CKD) >90 (>60 ml/min/1.73 sqM); Potassium 3.9 mmol/L (3.5-5.1); Sodium 131 mmol/L (137-145); Total Bilirubin 4.2 mg/dL (0.2-1.3); Total Protein 5.9 g/dL (6.3-8.2)
[2019-11-30 08:10] VITALS: PULSE 123
[2019-11-30] MEDS ORDERED: POLYETHYLENE GLYCOL 3350 17 GM POWD.PACK PO SCH (09:00)
--- NOTE | 2019-11-30 09:39 | P.PN ---
Subjective Progress Note Date: 11/30/19 Principal diagnosis: Cholecystitis Patient doing better today. Consult from gynecology, hematology, GI noted. Patient threatening to leave AGAINST MEDICAL ADVICE this morning. She is afebrile. Denies abdominal pain. Liver enzymes increased from previous. Objective - Vital Signs Vital signs: Vital Signs Temp 98.4 F 11/30/19 06:22 Pulse 123 H 11/30/19 08:00 Resp 20 11/30/19 08:00 BP 121/81 11/30/19 06:22 Pulse Ox 99 11/30/19 06:22 Intake & Output 11/29/19 11/30/19 11/30/19 18:59 06:59 18:59 Intake Total 310 2009 Balance 310 2009 Intake: Intake, IV Titration 1700 Amount Levofloxacin 750Mg-D5w 100 Pmx 750 mg In Dextrose/ Water 1 150ml.bag @ 100 mls/hr IVPB Q24H [facility] Rx#: [id number] Sodium Chloride 0.9% 1, 1500 000 ml @ 150 mls/hr IV . Q6H40M [facility] Rx#:[id number] metroNIDAZOLE-NS PMX 500 100 mg In Saline 1 100ml.bag @ 100 mls/hr IVPB Q8H [facility] Rx#:[id number] Blood Product 310 310 Rc Pheresis 2 As3 Unit 310 [id number] Rc Pheresis As-3 Unit 0 310 [id number] Other: Voiding Method Toilet Toilet Toilet # Voids 2 5 5 - Exam Abdomen: Soft, nontender, nondistended - Labs CBC & Chem 7: 11/30/19 07:17 11/30/19 07:17 Labs: Abnormal Lab Results - Last 24 Hours (Table) 11/28/19 11/29/19 11/29/19 Range/Units 20:49 07:27 07:27 WBC (3.8-10.6) k/uL RBC (3.80-5.40) m/uL Hgb (11.4-16.0) gm/dL Hct (34.0-46.0) % RDW (11.5-15.5) % Plt Count (150-450) k/uL Lymphocytes # (1.0-4.8) k/uL ESR 46 H (0-20) mm/hr Retic Count 5.27 H (0.10-1.80) % Sodium (137-145) mmol/L Chloride (98-107) mmol/L BUN (7-17) mg/dL Calcium (8.4-10.2) mg/dL Magnesium 1.3 L (1.6-2.3) mg/dL Iron (50-170) ug/dL Total Bilirubin (0.2-1.3) mg/dL AST (14-36) U/L ALT (4-34) U/L Alkaline Phosphatase (38-126) U/L Lactate Dehydrogenase (313-618) U/L Total Protein (6.3-8.2) g/dL Albumin (3.5-5.0) g/dL Crossmatch See Detail 11/29/19 11/29/19 11/30/19 Range/Units 07:27 21:07 07:17 WBC (3.8-10.6) k/uL RBC 2.69 L (3.80-5.40) m/uL Hgb 8.8 L D (11.4-16.0) gm/dL Hct 25.8 L (34.0-46.0) % RDW 19.9 H (11.5-15.5) % Plt Count 72 L (150-450) k/uL Lymphocytes # 0.4 L (1.0-4.8) k/uL ESR (0-20) mm/hr Retic Count (0.10-1.80) % Sodium 131 L (137-145) mmol/L Chloride 97 L (98-107) mmol/L BUN <2 L (7-17) mg/dL Calcium 7.6 L (8.4-10.2) mg/dL Magnesium 1.1 L (1.6-2.3) mg/dL Iron 41 L (50-170) ug/dL Total Bilirubin 4.2 H (0.2-1.3) mg/dL AST 250 H (14-36) U/L ALT 52 H (4-34) U/L Alkaline Phosphatase 298 H (38-126) U/L Lactate Dehydrogenase 800 H (313-618) U/L Total Protein 5.9 L (6.3-8.2) g/dL Albumin 2.8 L (3.5-5.0) g/dL Crossmatch 11/30/19 Range/Units 07:17 WBC 3.0 L (3.8-10.6) k/uL RBC 2.45 L (3.80-5.40) m/uL Hgb 8.0 L (11.4-16.0) gm/dL Hct 23.5 L (34.0-46.0) % RDW 20.1 H (11.5-15.5) % Plt Count 64 L (150-450) k/uL Lymphocytes # 0.3 L (1.0-4.8) k/uL ESR (0-20) mm/hr Retic Count (0.10-1.80) % Sodium (137-145) mmol/L Chloride (98-107) mmol/L BUN (7-17) mg/dL Calcium (8.4-10.2) mg/dL Magnesium (1.6-2.3) mg/dL Iron (50-170) ug/dL Total Bilirubin (0.2-1.3) mg/dL AST (14-36) U/L ALT (4-34) U/L Alkaline Phosphatase (38-126) U/L Lactate Dehydrogenase (313-618) U/L Total Protein (6.3-8.2) g/dL Albumin (3.5-5.0) g/dL Crossmatch Microbiology - Last 24 Hours (Table) 11/29/19 00:28 Blood Culture - Preliminary Blood No Growth after 24 hours 11/28/19 17:56 Urine Culture - Final Urine,Voided Assessment and Plan (1) Transaminitis Narrative/Plan: Patient with elevated liver enzymes. Gallbladder wall thickening on recent ultrasound likely related to adjacent hepatitis from alcohol use. No surgical plans. Stable for discharge. Status: Acute Code(s): R74.0 - NONSPEC ELEV OF LEVELS OF TRANSAMNS & LACTIC ACID DEHYDRGNSE SNOMED Code(s): 672979238
== END 2019-11-30 08:48 | disposition home or self-care (01) | DRG 760 ==
LOC: EC 18:50 → 5NMEDONC 22:21
PROVIDERS: ADMIT Family Medicine; ATTEND Family Medicine
PROC: 30233N1 Transfusion of Nonautologous Red Blood Cells into Peripheral Vein, Percutaneous Approach (ICD-10-PCS; principal; 2019-11-28)
DX: N92.0 Excessive and frequent menstruation with regular cycle (principal); D61.818 Other pancytopenia; K76.6 Portal hypertension; D62 Acute posthemorrhagic anemia; K86.0 Alcohol-induced chronic pancreatitis; F10.239 Alcohol dependence with withdrawal, unspecified; K70.10 Alcoholic hepatitis without ascites; G40.909 Epilepsy, unspecified, not intractable, without status epilepticus; F90.9 Attention-deficit hyperactivity disorder, unspecified type; R16.1 Splenomegaly, not elsewhere classified; F41.9 Anxiety disorder, unspecified; F32.9 Major depressive disorder, single episode, unspecified; R00.0 Tachycardia, unspecified; E87.6 Hypokalemia; R87.810 Cervical high risk human papillomavirus (HPV) DNA test positive; E83.42 Hypomagnesemia; F10.20 Alcohol dependence, uncomplicated; Y90.8 Blood alcohol level of 240 mg/100 ml or more; Z87.59 Personal history of other complications of pregnancy, childbirth and the puerperium; Z79.899 Other long term (current) drug therapy; Z98.890 Other specified postprocedural states; Z87.891 Personal history of nicotine dependence; Z98.891 History of uterine scar from previous surgery; Z88.0 Allergy status to penicillin; Z88.1 Allergy status to other antibiotic agents
CPT/HCPCS: 36415; 36430; 74018; 76830; 80053; 80320; 81001; 81025; 82140; 82150; 82607; 82728; 83540; 83550; 83615; 83690; 83735; 83921; 84132; 84443; 84484; 85025; 85045; 85610; 85652; 85730; 86038; 86140; 86431; 86850; 86900; 86901; 86920; 87040; 87086; 93005; 93975; 96361; 96374; 96375; 99291

== ENCOUNTER 2020-01-05 22:02 | Inpatient (IN) | payer OTHER ==
[2020-01-06] MEDS: LORazepam 2 MG/ML INJ IV PRN ×7 (02:12→22:18)
[2020-01-06] MEDS: HYDROmorphone 0.5 MG/0.5 ML SYRINGE IVP PRN ×4 (02:12→20:00)
[2020-01-06] MEDS: POTASSIUM CHLORIDE ER 20 MEQ TAB.ER PO SCH ×2 (02:16→05:22)
[2020-01-06] MEDS ORDERED: NALOXONE 0.4 MG/ML 1 ML VIAL IV PRN (04:15)
[2020-01-06 04:39] LABS: Anisocytosis Slight; Basophils % (A) 1 %; Eosinophils # (A) 0.1 k/uL (0-0.7); Eosinophils % (A) 1 %; HCT 23.9 % (34.0-46.0); HGB 7.8 gm/dL (11.4-16.0); Hypochromasia Moderate; Lymphocytes % (A) 11 %; MCHC 32.8 g/dL (31.0-37.0); MCV 94.6 fL (80.0-100.0); Macrocytosis Slight; Mean Platelet Volume 8.1; Monocytes # (A) 0.4 k/uL (0-1.0); Monocytes % (A) 5 %; Neutrophils # (A) 7.3 k/uL (1.3-7.7); Neutrophils % (A) 81 %; Poikilocytosis Slight; RBC 2.53 m/uL (3.80-5.40)
[2020-01-06 04:51] LABS: Platelet Count 248 k/uL (150-450)
[2020-01-06 04:55] LABS: ALT 27 U/L (4-34); AST 131 U/L (14-36); African American GFR (CKD) >90 (>60 ml/min/1.73 sqM); Albumin 2.3 g/dL (3.5-5.0); Alkaline Phosphatase 439 U/L (38-126); Anion Gap 14 mmol/L; Blood Urea Nitrogen <2 mg/dL (7-17); Calcium 7.1 mg/dL (8.4-10.2); Carbon Dioxide 22 mmol/L (22-30); Chloride 100 mmol/L (98-107); Glucose 97 mg/dL (74-99); Non-African American GFR(CKD) >90 (>60 ml/min/1.73 sqM); Potassium 3.4 mmol/L (3.5-5.1); Sodium 136 mmol/L (137-145); Total Bilirubin 4.8 mg/dL (0.2-1.3); Total Protein 5.3 g/dL (6.3-8.2)
[2020-01-06 04:56] LABS: Lactic Acid, Venous 5.2 mmol/L (0.7-2.0)
[2020-01-06] MEDS: SODIUM CHLORIDE 0.9% 1,000 ML IV SCH ×3 (05:22→23:16)
--- NOTE | 2020-01-06 07:27 | XR ---
EXAMINATION TYPE: XR chest 1V portable DATE OF EXAM: 01/06/2020 COMPARISON: Prior chest x-ray 06/17/2019 HISTORY: Enlarged abdomen, ethanol abuse, alcoholic hepatitis and acute metabolic encephalopathy TECHNIQUE: Single frontal view of the chest is obtained. FINDINGS: Lung volumes are low. Patchy basilar density is noted. There is no pneumothorax or pleural effusion. Heart size is within normal limits. There are overlying cardiac leads. Patient is rotated. IMPRESSION: Expiratory rotated exam. Probable subsegmental basilar atelectasis.
[2020-01-06] MEDS: levETIRAcetam 500 MG TAB PO SCH ×2 (07:46→19:59)
[2020-01-06] MEDS: FAMOTIDINE 20 MG TAB PO SCH ×2 (07:47→19:59)
[2020-01-06] MEDS: HEPARIN SODIUM,PORCINE 5,000 UNIT/ML 1 ML VIAL SQ SCH ×2 (07:47→19:59)
[2020-01-06 08:03] LABS: Anisocytosis Slight; Basophils # (A) 0.1 k/uL (0-0.2); Basophils % (A) 1 %; Eosinophils # (A) 0.1 k/uL (0-0.7); Eosinophils % (A) 1 %; HCT 25.1 % (34.0-46.0); HGB 8.1 gm/dL (11.4-16.0); Hypochromasia Moderate; Lymphocytes # (A) 0.9 k/uL (1.0-4.8); Lymphocytes % (A) 11 %; MCH 30.5 pg (25.0-35.0); MCV 95.1 fL (80.0-100.0); Macrocytosis Slight; Mean Platelet Volume 8.5; Monocytes # (A) 0.4 k/uL (0-1.0); Monocytes % (A) 5 %; Neutrophils # (A) 6.7 k/uL (1.3-7.7); Neutrophils % (A) 82 %; Platelet Count 303 k/uL (150-450); Poikilocytosis Slight; RBC 2.64 m/uL (3.80-5.40); RDW 18.1 % (11.5-15.5); WBC 8.2 k/uL (3.8-10.6)
[2020-01-06 08:13] LABS: INR 1.2 (<1.2); Prothrombin Time 12.3 sec (9.0-12.0)
[2020-01-06 08:25] LABS: ALT 27 U/L (4-34); AST 130 U/L (14-36); African American GFR (CKD) >90 (>60 ml/min/1.73 sqM); Albumin 2.3 g/dL (3.5-5.0); Alkaline Phosphatase 459 U/L (38-126); Anion Gap 14 mmol/L; Blood Urea Nitrogen <2 mg/dL (7-17); Calcium 7.3 mg/dL (8.4-10.2); Carbon Dioxide 23 mmol/L (22-30); Chloride 99 mmol/L (98-107); Glucose 78 mg/dL (74-99); Non-African American GFR(CKD) >90 (>60 ml/min/1.73 sqM); Potassium 3.8 mmol/L (3.5-5.1); Sodium 136 mmol/L (137-145); Total Bilirubin 5.2 mg/dL (0.2-1.3); Total Protein 5.4 g/dL (6.3-8.2)
[2020-01-06] MEDS ORDERED: Potassium Replacement Protocol 1 EACH MISC MISCELLANE PRN (09:31)
[2020-01-06 09:39] LABS: Appearance,Urine Cloudy (Clear); Bacteria,Urine Rare /hpf; Bilirubin,Urine 2+ (Negative); Blood,Urine Negative (Negative); Color,Urine Dark Yellow; Glucose,Urine (UA) Negative (Negative); Ketones,Urine Negative (Negative); Leukocyte Esterase,Urine Negative (Negative); Mucus,Urine Rare /hpf; Nitrite,Urine Negative (Negative); PH, Urine 6.5 (5.0-8.0); Protein,Urine Negative (Negative); Specific Gravity,Urine 1.011 (1.001-1.035); Squamous Epithelial Cell,Urine 5 /hpf (0-4); Urobilinogen,Urine <2.0 mg/dL (<2.0); WBC,Urine 2 /hpf (0-5)
[2020-01-06] MEDS ORDERED: SODIUM CHLORIDE 0.9% 1,000 ML IV ONE ×2 (09:39→14:41)
[2020-01-06] MEDS ORDERED: POTASSIUM CHLORIDE ER 20 MEQ TAB.ER PO SCH (10:00)
[2020-01-06] MEDS: ONDANSETRON 4 MG/2 ML VIAL IVP PRN ×3 (11:06→23:16)
[2020-01-06] MEDS: HYDROcodone/APAP 5-325MG 1 EACH TAB PO PRN ×3 (11:06→23:16)
[2020-01-06] MEDS ORDERED: THIAMINE 100 MG/ML 2 ML VIAL IM STA (11:30)
[2020-01-06 11:53] LABS: Amylase <30 U/L (30-110)
--- NOTE | 2020-01-06 13:08 | P.HPIM ---
History of Present Illness Patient is a pleasant 29-year-old female came in with complaints of abdominal pain prominently in the epigastric area burning sensation. Nonradiating abdominal pain and mild to moderate severity her abdominal pain resolved. Patient is an alcoholic does drink alcohol daily basis does appear to have mild ascites clinically along with mildly elevated INR of 1.2. Patient drinks about a pint of alcohol every day patient last drink was yesterday morning patient is already having withdrawals patient is on alcohol withdrawal precautions. Patient denied any fever chills patient was having will nausea yesterday which resolved at this time. Patient is bit tachycardic with elevated lactic acid secondary to liver failure. Ammonia level is 23 liver enzymes are elevated along with the elevated bilirubin of 5.2 patient has low hemoglobin of 8.1 patient was recently treated for vaginal bleeding. Review of Systems REVIEW OF SYSTEMS: CONSTITUTIONAL: No fever, no malaise, no fatigue. HEENT: No recent visual problems or hearing problems. Denied any sore throat. CARDIOVASCULAR: No chest pain, orthopnea, PND, no palpitations, no syncope. PULMONARY: No shortness of breath, no cough, no hemoptysis. GASTROINTESTINAL: As mentioned in HPI NEUROLOGICAL: No headaches, no weakness, no numbness. HEMATOLOGICAL: Denies any bleeding or petechiae. GENITOURINARY: Denies any burning micturition, frequency, or urgency. MUSCULOSKELETAL/RHEUMATOLOGICAL: Denies any joint pain, swelling, or any muscle pain. ENDOCRINE: Denies any polyuria or polydipsia. The rest of the 14-point review of systems is negative. Past Medical History Past Medical History: Liver Disease, Pneumonia, Seizure Disorder Additional Past Medical History / Comment(s): Past obstetrical history significant for 1 section for failure to progress. ETOH abuse. Bronchitis, Sepsis (2013) History of Any Multi-Drug Resistant Organisms: None Reported Past Surgical History: Section, Orthopedic Surgery Additional Past Surgical History / Comment(s): 2 rt foot sx in past Past Anesthesia/Blood Transfusion Reactions: Motion Sickness Past Psychological History: ADD/ADHD, Anxiety Smoking Status: Former smoker Past Alcohol Use History: Abuse, Daily Additional Past Alcohol Use History / Comment(s): She states she drinks 2 gallon of vodka in 2 days. She states she has to have a drink in the morning when she wakes up to control her tremors and nausea. She does state that she has been to rehab in the past and it does not work for her. Past Drug Use History: None Reported - Past Family History Father Family Medical History: No Reported History Mother Family Medical History: No Reported History Medications and Allergies Home Medications Medication Instructions Recorded Confirmed Type Dextroamphetamine/Amphetamine 20 mg PO TID PRN 06/17/19 01/06/20 History [Adderall] levETIRAcetam [Keppra] 1,000 mg PO BID 06/17/19 01/06/20 History Ondansetron HCl [Zofran] 8 mg PO Q8HR PRN 11/28/19 01/06/20 History Ascorbic Acid [Vitamin C] 1,000 mg PO DAILY 01/06/20 01/06/20 History Potassium Gluconate 99 mg PO DAILY 01/06/20 01/06/20 History traZODone HCL [Desyrel] 100 mg PO HS PRN 01/06/20 01/06/20 History Allergies Allergy/AdvReac Type Severity Reaction Status Date / Time ceftriaxone Allergy Anaphylaxis Verified 01/06/20 09:33 Penicillins Allergy Rash/Hives Verified 01/06/20 09:33 Physical Exam Vitals: Vital Signs Temp Pulse Resp BP BP Pulse Ox 01/06/20 11:00 120 H 16 95/64 96 01/06/20 10:30 124 H 22 109/66 96 01/06/20 10:00 122 H 18 113/86 95 01/06/20 09:30 121 H 20 104/65 94 L 01/06/20 09:00 118 H 21 107/71 97 01/06/20 08:30 117 H 13 112/84 92 L 01/06/20 08:00 98.6 F 116 H 21 102/80 97 01/06/20 07:00 112 H 15 99/77 96 01/06/20 06:30 112 H 13 105/79 93 L 01/06/20 06:00 112 H 22 99/68 97 01/06/20 05:30 112 H 13 106/76 92 L 01/06/20 05:00 110 H 14 112/68 98 01/06/20 04:30 110 H 14 104/68 98 01/06/20 04:00 98.9 F 112 H 13 106/69 98 01/06/20 03:30 112 H 12 112/72 98 01/06/20 03:20 110 H 13 106/76 99 01/06/20 03:00 113 H 15 110/72 84 L 01/06/20 02:40 115 H 21 107/81 95 01/06/20 02:30 115 H 23 113/82 95 01/06/20 02:00 112 H 20 107/81 96 01/06/20 00:40 98.9 F 117 H 23 113/82 100 01/06/20 00:30 20 110/72 94 L Intake and Output 01/05/20 01/06/20 01/06/20 22:59 06:59 14:59 Intake Total 675 1500 Output Total 0 525 Balance 675 975 Intake: Intake, IV Titration 375 1300 Amount Sodium Chloride 0.9% 1, 375 300 000 ml @ 100 mls/hr IV . Q10H [facility] Rx#:[id number] Sodium Chloride 0.9% 1, 1000 000 ml @ 999 mls/hr IV . Q1H1M [facility] Rx#:[id number] Oral 300 200 Output: Urine 0 525 Other: Weight 82 kg 82 kg PHYSICAL EXAMINATION: GENERAL: The patient is alert and oriented x3, not in any acute distress. Well developed, well nourished. Does have unintentional course resting tremors HEENT: Pupils are round and equally reacting to light. EOMI. does have scleral icterus. No conjunctival pallor. Normocephalic, atraumatic. No pharyngeal erythema. No thyromegaly. CARDIOVASCULAR: S1 and S2 present. No murmurs, rubs, or gallops. PULMONARY: Chest is clear to auscultation, no wheezing or crackles. ABDOMEN: Soft, nontender, nondistended, normoactive bowel sounds. No palpable organomegaly. Not really appreciate shifting dullness MUSCULOSKELETAL: No joint swelling or deformity. EXTREMITIES: No cyanosis, clubbing, or pedal edema. NEUROLOGICAL: Gross neurological examination did not reveal any focal deficits. SKIN: No rashes. Results CBC & Chem 7: 01/06/20 07:27 01/06/20 07:27 Labs: Abnormal Lab Results - Last 24 Hours (Table) 01/06/20 01/06/20 01/06/20 Range/Units 04:12 04:12 04:12 RBC 2.53 L (3.80-5.40) m/uL Hgb 7.8 L (11.4-16.0) gm/dL Hct 23.9 L (34.0-46.0) % RDW 18.0 H (11.5-15.5) % Lymphocytes # (1.0-4.8) k/uL PT (9.0-12.0) sec INR (<1.2) Sodium 136 L (137-145) mmol/L Potassium 3.4 L (3.5-5.1) mmol/L BUN <2 L (7-17) mg/dL Creatinine 0.25 L (0.52-1.04) mg/dL Plasma Lactic Acid John 5.2 H* (0.7-2.0) mmol/L Calcium 7.1 L (8.4-10.2) mg/dL Total Bilirubin 4.8 H (0.2-1.3) mg/dL AST 131 H (14-36) U/L Alkaline Phosphatase 439 H (38-126) U/L Total Protein 5.3 L (6.3-8.2) g/dL Albumin 2.3 L (3.5-5.0) g/dL Amylase (30-110) U/L Urine Appearance (Clear) Urine Bilirubin (Negative) Ur Squamous Epith Cells (0-4) /hpf Urine Bacteria (None) /hpf Urine Mucus (None) /hpf 01/06/20 01/06/20 01/06/20 Range/Units 07:27 07:27 07:27 RBC 2.64 L (3.80-5.40) m/uL Hgb 8.1 L (11.4-16.0) gm/dL Hct 25.1 L (34.0-46.0) % RDW 18.1 H (11.5-15.5) % Lymphocytes # 0.9 L (1.0-4.8) k/uL PT 12.3 H (9.0-12.0) sec INR 1.2 H (<1.2) Sodium 136 L (137-145) mmol/L Potassium (3.5-5.1) mmol/L BUN <2 L (7-17) mg/dL Creatinine 0.31 L (0.52-1.04) mg/dL Plasma Lactic Acid John (0.7-2.0) mmol/L Calcium 7.3 L (8.4-10.2) mg/dL Total Bilirubin 5.2 H (0.2-1.3) mg/dL AST 130 H (14-36) U/L Alkaline Phosphatase 459 H (38-126) U/L Total Protein 5.4 L (6.3-8.2) g/dL Albumin 2.3 L (3.5-5.0) g/dL Amylase (30-110) U/L Urine Appearance (Clear) Urine Bilirubin (Negative) Ur Squamous Epith Cells (0-4) /hpf Urine Bacteria (None) /hpf Urine Mucus (None) /hpf 01/06/20 01/06/20 01/06/20 Range/Units 07:27 07:55 09:04 RBC (3.80-5.40) m/uL Hgb (11.4-16.0) gm/dL Hct (34.0-46.0) % RDW (11.5-15.5) % Lymphocytes # (1.0-4.8) k/uL PT (9.0-12.0) sec INR (<1.2) Sodium (137-145) mmol/L Potassium (3.5-5.1) mmol/L BUN (7-17) mg/dL Creatinine (0.52-1.04) mg/dL Plasma Lactic Acid John 4.6 H* (0.7-2.0) mmol/L Calcium (8.4-10.2) mg/dL Total Bilirubin (0.2-1.3) mg/dL AST (14-36) U/L Alkaline Phosphatase (38-126) U/L Total Protein (6.3-8.2) g/dL Albumin (3.5-5.0) g/dL Amylase <30 L (30-110) U/L Urine Appearance Cloudy H (Clear) Urine Bilirubin 2+ H (Negative) Ur Squamous Epith Cells 5 H (0-4) /hpf Urine Bacteria Rare H (None) /hpf Urine Mucus Rare H (None) /hpf Thrombosis Risk Factor Assmnt - Choose All That Apply Any of the Below Risk Factors Present?: No Other Risk Factors: No Thrombosis Risk Factor Assessment Level: Very Low Risk Assessment and Plan Plan: -Alcohol withdrawal, delirium tremens patient is on Ativan CIWA protocol alcohol cessation counseling was provided. -Abdominal pain probably secondary to alcoholic gastritis patient is on IV Pepcid with improved symptoms which will be continued -Mild acquired lefty secondary to possible cirrhosis -Acute alcoholic hepatitis with possibly of cirrhosis OF THE ABDOMEN IS BEING OBTAINED TO ASSESS FOR ASCITES -ANEMIA APPEARS TO BE CHRONIC NO ACUTE GI BLEED OR VAGINAL BLEED AND ANEMIA IS PROBABLY MULTIFACTORIAL INCLUDING IRON DEFICIENCY AND SECONDARY TO ALCOHOL abuse or liver disease. -Tachycardia secondary to alcohol withdrawal will use a beta corine if needed as clonidine is controlled the blood pressure significantly patient blood pressure is already low. Hypokalemia potassium is being supplemented -Lactic acidosis secondary to liver failure continue with IV fluids at this time. -Obstructive jaundice secondary to either alcoholic hepatitis or cirrhosis DVT prophylaxis with subcutaneous heparin
--- NOTE | 2020-01-06 13:21 | P.CNPUL ---
History of Present Illness Consult date: 01/06/20 Requesting physician: Sharda Enrique Reason for consult: other Chief complaint: Abdominal pain History of present illness: This is a 29-year-old female with history of alcoholic liver disease, alcoholism, patient had frequent admissions in the past for alcoholism and abdominal pain, normally she sighs out AMA after few days of being in the hospital. This time the patient presented to [facility] with a one- week history of abdominal pain and epigastric discomfort described as a burning sensation. He and was nonradiating. It was described as [id number] in severity. Patient normally drinks 1 pint of alcohol every day. Patient was evaluated initially at [facility], and she was noted to be tachycardic, she had elevated lactic acid, abnormal liver enzymes, normal ammonia level, and she had low hemoglobin of 8.1. And elevated bilirubin. Patient was transferred to [facility], and because of concern of alcohol withdrawal patient was admitted to the ICU, and placed on alcohol withdrawal protocol. I saw her this morning, patient seems to be in no distress. I recommended ultrasound of the abdomen and pelvis as she may have ascites. I also ordered pancreatic enzymes including amylase and lipase. Chest x-ray done on this admission showed mostly bibasilar atelectasis. Review of Systems CONSTITUTIONAL: No weight loss no fever no chills. HEENT: Negative CARDIOVASCULAR: Negative PULMONARY: Denies cough wheezing or shortness of breath. GASTROINTESTINAL: Mostly abdominal pain. NEUROLOGICAL: Negative HEMATOLOGICAL: Negative GENITOURINARY: Negative MUSCULOSKELETAL/RHEUMATOLOGICAL: Negative ENDOCRINE: Negative Psychiatric: Denies any symptoms of active depression. Skin: No rashes. Past Medical History Past Medical History: Liver Disease, Pneumonia, Seizure Disorder Additional Past Medical History / Comment(s): Past obstetrical history sig nificant for 1 section for failure to progress. ETOH abuse. Bronchitis, Sepsis (2013) History of Any Multi-Drug Resistant Organisms: None Reported Past Surgical History: Section, Orthopedic Surgery Additional Past Surgical History / Comment(s): 2 rt foot sx in past Past Anesthesia/Blood Transfusion Reactions: Motion Sickness Past Psychological History: ADD/ADHD, Anxiety Smoking Status: Former smoker Past Alcohol Use History: Abuse, Daily Additional Past Alcohol Use History / Comment(s): She states she drinks 2 gallon of vodka in 2 days. She states she has to have a drink in the morning when she wakes up to control her tremors and nausea. She does state that she has been to rehab in the past and it does not work for her. Past Drug Use History: None Reported - Past Family History Father Family Medical History: No Reported History Mother Family Medical History: No Reported History Medications and Allergies Home Medications Medication Instructions Recorded Confirmed Type Dextroamphetamine/Amphetamine 20 mg PO TID PRN 06/17/19 01/06/20 History [Adderall] levETIRAcetam [Keppra] 1,000 mg PO BID 06/17/19 01/06/20 History Ondansetron HCl [Zofran] 8 mg PO Q8HR PRN 11/28/19 01/06/20 History Ascorbic Acid [Vitamin C] 1,000 mg PO DAILY 01/06/20 01/06/20 History Potassium Gluconate 99 mg PO DAILY 01/06/20 01/06/20 History traZODone HCL [Desyrel] 100 mg PO HS PRN 01/06/20 01/06/20 History Allergies Allergy/AdvReac Type Severity Reaction Status Date / Time ceftriaxone Allergy Anaphylaxis Verified 01/06/20 09:33 Penicillins Allergy Rash/Hives Verified 01/06/20 09:33 Physical Exam Vitals: Vital Signs Temp Pulse Resp BP BP Pulse Ox 01/06/20 11:00 120 H 16 95/64 96 01/06/20 10:30 124 H 22 109/66 96 01/06/20 10:00 122 H 18 113/86 95 01/06/20 09:30 121 H 20 104/65 94 L 01/06/20 09:00 118 H 21 107/71 97 01/06/20 08:30 117 H 13 112/84 92 L 01/06/20 08:00 98.6 F 116 H 21 102/80 97 01/06/20 07:00 112 H 15 99/77 96 01/06/20 06:30 112 H 13 105/79 93 L 01/06/20 06:00 112 H 22 99/68 97 01/06/20 05:30 112 H 13 106/76 92 L 01/06/20 05:00 110 H 14 112/68 98 01/06/20 04:30 110 H 14 104/68 98 01/06/20 04:00 98.9 F 112 H 13 106/69 98 01/06/20 03:30 112 H 12 112/72 98 01/06/20 03:20 110 H 13 106/76 99 01/06/20 03:00 113 H 15 110/72 84 L 01/06/20 02:40 115 H 21 107/81 95 01/06/20 02:30 115 H 23 113/82 95 01/06/20 02:00 112 H 20 107/81 96 01/06/20 00:40 98.9 F 117 H 23 113/82 100 01/06/20 00:30 20 110/72 94 L Intake and Output 01/05/20 01/06/20 01/06/20 22:59 06:59 14:59 Intake Total 675 1500 Output Total 0 525 Balance 675 975 Intake: Intake, IV Titration 375 1300 Amount Sodium Chloride 0.9% 1, 375 300 000 ml @ 100 mls/hr IV . Q10H CE Rx#:[id number] Sodium Chloride 0.9% 1, 1000 000 ml @ 999 mls/hr IV . Q1H1M ONE Rx#:[id number] Oral 300 200 Output: Urine 0 525 Other: Weight 82 kg 82 kg Physical Exam: Revealed 29-year-old female in no distress. Head: Atraumatic, normocephalic. HEENT:[Neck is supple.] [No neck masses.] [No thyromegaly.] [No JVD.] PERRLA, EOMI, positive icterus. Chest: [Clear throughout, no crackles, no rhonchi, no wheezes.] Cardiac Exam: [Normal S1 and S2, no S3 gallop, no murmur.] Abdomen: [Soft slightly distended, slightly tender, no rebound no guarding. Positive bowel sounds. Extremities: [No clubbing, no edema, no cyanosis.] Neurological Exam: [No focal neurologic deficit.] Alert and oriented 3. Psychiatric: Normal mood, blunt affect, normal mental status examination. Skin: No rashes. Lymphatics: No lymphadenopathy. Results - Laboratory Findings CBC and BMP: 01/06/20 07:27 01/06/20 07:27 PT/INR, D-dimer PT 12.3 sec (9.0-12.0) H 01/06/20 07:27 INR 1.2 (<1.2) H 01/06/20 07:27 Abnormal lab findings: Abnormal Labs 01/06/20 01/06/20 01/06/20 04:12 04:12 04:12 RBC 2.53 L Hgb 7.8 L Hct 23.9 L RDW 18.0 H Lymphocytes # PT INR Sodium 136 L Potassium 3.4 L BUN <2 L Creatinine 0.25 L Plasma Lactic Acid John 5.2 H* Calcium 7.1 L Total Bilirubin 4.8 H AST 131 H Alkaline Phosphatase 439 H Total Protein 5.3 L Albumin 2.3 L Amylase Urine Appearance Urine Bilirubin Ur Squamous Epith Cells Urine Bacteria Urine Mucus 01/06/20 01/06/20 01/06/20 07:27 07:27 07:27 RBC 2.64 L Hgb 8.1 L Hct 25.1 L RDW 18.1 H Lymphocytes # 0.9 L PT 12.3 H INR 1.2 H Sodium 136 L Potassium BUN <2 L Creatinine 0.31 L Plasma Lactic Acid John Calcium 7.3 L Total Bilirubin 5.2 H AST 130 H Alkaline Phosphatase 459 H Total Protein 5.4 L Albumin 2.3 L Amylase Urine Appearance Urine Bilirubin Ur Squamous Epith Cells Urine Bacteria Urine Mucus 01/06/20 01/06/20 01/06/20 07:27 07:55 09:04 RBC Hgb Hct RDW Lymphocytes # PT INR Sodium Potassium BUN Creatinine Plasma Lactic Acid John 4.6 H* Calcium Total Bilirubin AST Alkaline Phosphatase Total Protein Albumin Amylase <30 L Urine Appearance Cloudy H Urine Bilirubin 2+ H Ur Squamous Epith Cells 5 H Urine Bacteria Rare H Urine Mucus Rare H - Diagnostic Findings Chest x-ray: image reviewed (As noted in HPI.) Assessment and Plan Assessment: Impression: Chronic recurrent abdominal pain, differential diagnoses includes gastritis, pancreatitis, workup is in progress. History of alcoholism, patient is an excellent set up for possible alcohol withdrawal and delirium tremens. 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 Acute alcoholic hepatitis. Sinus tachycardia related to alcohol withdrawal. Patient is presently on the alcohol withdrawal protocol. Lactic acidosis secondary to underlying liver disease and cirrhosis. Anemia of chronic disease and alcohol liver disease. Recommendation: Continue to monitor in the ICU for the next 24 hours. Placed on alcohol withdrawal protocol and including Ativan and thiamine. IV fluids Ultrasound of the abdomen and pelvis was ordered. Pancreatic enzymes were ordered. GI and DVT prophylaxis. We'll continue to follow. Time with Patient: Greater than 30
[2020-01-06] MEDS: THIAMINE 100 MG TAB PO SCH (17:12)
[2020-01-06] MEDS ORDERED: levETIRAcetam 500 MG TAB PO SCH (21:00)
[2020-01-07] MEDS: LORazepam 2 MG/ML INJ IV PRN ×8 (00:15→22:56)
[2020-01-07] MEDS: HYDROmorphone 0.5 MG/0.5 ML SYRINGE IVP PRN ×3 (03:00→17:05)
[2020-01-07] MEDS: SODIUM CHLORIDE 0.9% 1,000 ML IV SCH ×2 (03:01→19:33)
[2020-01-07] MEDS: ONDANSETRON 4 MG/2 ML VIAL IVP PRN ×3 (05:42→22:56)
[2020-01-07] MEDS: THIAMINE 100 MG TAB PO SCH ×2 (05:42→17:44)
[2020-01-07] MEDS: HYDROcodone/APAP 5-325MG 1 EACH TAB PO PRN ×3 (05:42→21:30)
[2020-01-07 05:44] LABS: ALT 23 U/L (4-34); AST 114 U/L (14-36); African American GFR (CKD) >90 (>60 ml/min/1.73 sqM); Albumin 2.1 g/dL (3.5-5.0); Alkaline Phosphatase 461 U/L (38-126); Anion Gap 8 mmol/L; Blood Urea Nitrogen <2 mg/dL (7-17); Calcium 7.5 mg/dL (8.4-10.2); Carbon Dioxide 25 mmol/L (22-30); Chloride 98 mmol/L (98-107); Glucose 80 mg/dL (74-99); Non-African American GFR(CKD) >90 (>60 ml/min/1.73 sqM); Sodium 131 mmol/L (137-145); Total Bilirubin 6.2 mg/dL (0.2-1.3); Total Protein 5.1 g/dL (6.3-8.2)
[2020-01-07 05:46] LABS: Anisocytosis Slight; Basophils % (A) 0 %; Eosinophils # (A) 0.2 k/uL (0-0.7); Eosinophils % (A) 2 %; HCT 23.9 % (34.0-46.0); HGB 7.8 gm/dL (11.4-16.0); Hypochromasia Moderate; Lymphocytes # (A) 0.7 k/uL (1.0-4.8); Lymphocytes % (A) 7 %; MCH 31.3 pg (25.0-35.0); MCHC 32.5 g/dL (31.0-37.0); MCV 96.3 fL (80.0-100.0); Macrocytosis Slight; Mean Platelet Volume 8.7; Monocytes # (A) 0.3 k/uL (0-1.0); Monocytes % (A) 3 %; Neutrophils # (A) 8.2 k/uL (1.3-7.7); Neutrophils % (A) 87 %; Platelet Count 245 k/uL (150-450); Poikilocytosis Slight; RBC 2.49 m/uL (3.80-5.40); RDW 18.2 % (11.5-15.5); WBC 9.5 k/uL (3.8-10.6)
--- NOTE | 2020-01-07 07:08 | XR ---
EXAMINATION TYPE: XR chest 1V portable DATE OF EXAM: 01/07/2020 COMPARISON: Prior chest x-ray 01/06/2020 HISTORY: Abnormal chest x-ray TECHNIQUE: Single frontal view of the chest is obtained. FINDINGS: Patchy bibasilar density persists. No evident pneumothorax. Lung volumes are low. Heart si ze is within normal limits. Central vascularity is somewhat prominent. IMPRESSION: Findings are similar to prior exam. Expiratory exam, correlate to exclude pneumonia vers us subsegmental atelectatic changes.
[2020-01-07 08:11] LABS: Glucose,Whole Blood 104 mg/dL (75-99)
[2020-01-07] MEDS ORDERED: LACTULOSE 20 GM/30 ML CUP PO PRN (08:22)
[2020-01-07] MEDS: HEPARIN SODIUM,PORCINE 5,000 UNIT/ML 1 ML VIAL SQ SCH ×2 (09:00→21:34)
[2020-01-07] MEDS: FAMOTIDINE 20 MG TAB PO SCH ×2 (09:00→21:31)
[2020-01-07] MEDS: MULTIVITAMINS, THERA 1 EACH TAB PO SCH (09:00)
[2020-01-07] MEDS: levETIRAcetam 500 MG TAB PO SCH ×2 (09:00→21:31)
--- NOTE | 2020-01-07 09:31 | CONS ---
CONSULTATION DATE OF SERVICE: 01/06/2020. REASON FOR CONSULTATION: Elevated LFTs and history of liver cirrhosis. HISTORY OF PRESENT ILLNESS: The patient is a 29-year-old white female with history of alcoholic liver disease with previous hospitalizations with acute alcoholic hepatitis who presented to [facility] yesterday for abdominal pain, abdominal distention for the last 3-4 day's duration. The patient said she was recently admitted to [facility] from where she was transferred to [facility] when she was in the intensive care unit for a week and according to her, she was having severe vaginal bleeding and had a [facility] consultation, but does not recall any details. She was just discharged home about 3 or 4 days ago. For the last few days, started having abdominal distention with abdominal pain and hence went to [facility] where she was noted to have severe tachycardia, somewhat hypertensive and elevated LFTs and she was transferred to [facility] for further management. Today, she continues to complain of abdominal distention and abdominal pain. She complains of some nausea but no emesis. No rectal bleeding or melena. She has history of heavy alcohol use for the last 14 years duration. She drinks at least a pint of alcohol daily. Last intake was yesterday. PAST MEDICAL HISTORY: Significant for previous hospitalizations because of acute alcoholic hepatitis. History of seizure disorder, vaginal bleeding. PAST SURGICAL HISTORY: , right foot surgery. SOCIAL HISTORY: Former smoker. Alcohol use as mentioned above on a daily basis. MEDICATIONS: At home include Adderall, Keppra, Zofran, vitamin C, Desyrel and potassium. ALLERGIES: CEFTRIAXONE and PENICILLIN. FAMILY HISTORY: Unremarkable. REVIEW OF SYSTEMS: CARDIOPULMONARY: She denies any chest pain or shortness of breath. : No hematuria. MUSCULOSKELETAL: Unremarkable. SKIN: Unremarkable. ENDOCRINE: Unremarkable. PSYCHIATRIC: Unremarkable. NEUROLOGY: Slight tremors. ENT/VISION: Unremarkable. CONSTITUTIONAL: No recent weight loss. No fever, chills, night sweats. PHYSICAL EXAMINATION: She appears comfortable, in no apparent distress. VITAL SIGNS: Blood pressure 109/66, pulse rate 104 per minute and afebrile. HEENT': Examination unremarkable. Conjunctivae pink. Sclerae anicteric, oral cavity no lesions. NECK: No JVD or lymph node enlargement. CHEST: Clear to auscultation. ABDOMEN: Distended with mild diffuse tenderness, noted. No rebound or rigidity. There was some free fluid. Some shifting dullness noted. EXTREMITIES: No pedal edema. SKIN : No rashes. NEURO: Mild tremors noted in the upper extremities. Alert and oriented x3. No focal deficits. LABS: Done today hemoglobin 7.8, WBC 8.2, platelets 303. INR 1.2, T-bilirubin 5.2, AST 130, ALT 27, alkaline phosphatase 459, and lactic acid was 4. Amylase and lipase are within normal limits. Ammonia level is 23. IMPRESSION: 1. Abdominal pain, abdominal distention in this lady who presents to the hospital and noted to have elevated serum transaminases are consistent with acute alcoholic hepatitis, possible mild ascites. The patient had previous hospitalization with similar symptoms about a year ago. 2. History of heavy alcohol abuse. 3. Abdominal distention, rule out ascites. 4. Anemia probably related to underlying liver disease. The patient also has having excessive menorrhagia for which she was evaluated by [facility] in the past. 5. Lactic acidosis. RECOMMENDATIONS: 1. Obtain ultrasound of the abdomen. 2. Monitor for alcohol withdrawal and DTs. 3. Start her on clear liquid diet. 4. Repeat labs in the morning. 5. We will follow with you closely. Thank you for this consultation. MMODL / IJN: [id number] /
--- NOTE | 2020-01-07 10:25 | PN ---
PROGRESS NOTE PULMONARY/CRITICAL CARE PROGRESS NOTE: DATE OF SERVICE: 01/07/2020 This is a 29-year-old female who apparently has a history of chronic alcohol abuse with alcoholic liver disease and has had frequent admissions to the hospital for alcoholism and abdominal pain. According to my partner though, she apparently was in the hospital for a couple days and then signed out against medical advice. Apparently, she at this time presented to [facility] on January 05. She apparently was complaining of abdominal pain and epigastric discomfort. It was described as being moderate in severity. She typically drinks 1 pint of vodka a day. She was evaluated at [facility] and she was tachycardic with an elevated lactic acid with abnormal liver enzymes. For that reason, the patient was transferred to [facility] where she was admitted for concerns of alcohol withdrawal syndrome. Currently, the patient is resting comfortably. She is not receiving any supplemental oxygen. Her IV is saline at 120 mL an hour. She did test negative for COVID-19 infection. She also apparently has a history of vaginal bleeding and seizure disorder. Current vital signs are reviewed. Temperature is 99.4, heart rate 133, respiratory rate 21, blood pressure 98/62, mean 74, room air saturation 94%. Appears in no acute distress. She is tachycardic. HEENT: Examination is grossly unremarkable. Not receiving any supplemental oxygen. She is a bit pale. NECK: Supple, full range of motion. No adenopathy. Neck veins are flat. CARDIOVASCULAR: Examination reveals tachycardia. Heart rate about 130 beats per minute. It is regular. S1, S2 normal. LUNGS: Reveal mostly clear breath sounds. A few scattered rhonchi. No wheezes or crackles. ABDOMEN: Soft. Bowel sounds are noted. Some mild tenderness on palpation, particularly in the epigastric area. She does not have a surgical abdomen. EXTREMITIES: Intact. No cyanosis, clubbing, or edema. SKIN: Without rash. It is pale. NEUROLOGIC: Examination is brief but nonfocal. LAB: Date is reviewed. White count 9.5, hemoglobin 7.8, hematocrit 23.9, platelet count 345,000, sodium 131, potassium 4, chloride 98, CO2 is 25, anion gap is 8. BUN and creatinine were less than 2 and 0.28. Plasma lactic acid was 4.0, 4.7 and 2.8. Her total bilirubin with bilirubin was 6.2. Her AST was 114, ALT 23, albumin 2.1, alkaline phosphatase 2461. Her urine was cloudy. There is 2+ bilirubin. Rare bacteria. Microbiology is pending or negative. Her chest x-ray shows some bibasilar atelectasis. Subsequent chest x-ray again shows small lung volumes and bibasilar atelectasis. CURRENT MEDICATIONS: Reviewed. She is currently receiving Pepcid, heparin, [place], Dilaudid, Keppra, Ativan, multivitamins, Narcan, Zofran, potassium replacement, and thiamine. ASSESSMENT: 1. History of chronic alcohol abuse with likely acute alcoholic hepatitis. 2. History of alcoholic liver disease with chronic alcohol abuse and probable acute alcohol withdrawal syndrome. 3. Rule out delirium tremens. 4. Seizure disorder, may relate to alcohol-induced seizures. 5. Sinus tachycardia, likely secondary to alcohol withdrawal syndrome. 6. Lactic acidosis, likely secondary to liver disease. 7. Anemia of chronic disease. 8. Hyperbilirubinemia. 9. History of vaginal bleeding. 10.Prior history of tobacco use. PLAN: Currently, the patient is being monitored here in the ICU. She likely is going to have some manifestations of alcohol withdrawal syndrome. She is currently a bit tachycardic and certainly that likely relates to withdrawal. Will continue to monitor. The patient has IV fluids at 120 mL an hour. Will make sure she has GI, DVT prophylaxis. Pancreatic enzymes were ordered. Additional recommendations and suggestions are forthcoming. Prognosis is guarded. Amylase and lipase levels were normal. MMODL / IJN: [id number] /
--- NOTE | 2020-01-07 10:34 | US ---
EXAMINATION TYPE: US abdomen complete DATE OF EXAM: 01/07/2020 COMPARISON: NONE CLINICAL HISTORY: abd pain ascites. EXAM MEASUREMENTS: Liver Length: 23 cm Gallbladder Wall: .5 cm CBD: .7 cm Spleen: 15.7 cm Right Kidney: 12.8 x 5.2 x 5.0 cm Left Kidney: 11.7 x 5.1 x 4.6 cm Pancreas: Obscured by bowel gas Liver: Increased attenuation hepatomegaly. Gallbladder: Thickened wall pericholecystic fluid visualized. Evidence for sonographic Nguyễn's sign: No CBD: Dilated Spleen: Splenomegaly Right Kidney: wnl Left Kidney: wnl Upper IVC: limited Abd Aorta: limited There is small amount of ascites. IMPRESSION: Correlate for cholecystitis, gallbladder wall thickening and pericholecystic fluid could be present due to underlying ascites. Common bile duct is dilated, consider gastroenterology consult. Splenomegaly. Hepatomegaly with probable hepatic steatosis. Ascites is minimal. Exam is limited.
--- NOTE | 2020-01-07 12:58 | PN ---
PROGRESS NOTE DATE OF SERVICE: 01/07/2020 Patient is a 29-year-old pleasant white female with history of alcoholic liver disease with acute alcoholic hepatitis, admitted to hospital with abdominal distention and fatigue and weakness. She did have ultrasound of the abdomen done this morning. Report results are still pending at the time of this dictation. She has been on a regular diet tolerating well. No nausea, vomiting. Still continues to be tachycardic and has some and going through alcohol withdrawal. PHYSICAL EXAMINATION: Appears comfortable no apparent distress. VITAL SIGNS: Blood pressure is 105/62, pulse is 131, temperature 98.1. HEENT examination unremarkable. Conjunctivae pink. Sclerae anicteric. Oral cavity no lesions abdomen sclerae are slightly icteric. Oral cavity no lesions the auscultation. HEART: Regular rate and rhythm abdomen is slightly distended but soft extremities no pedal edema skin no rashes neuro tremors not identified. LABS: From today WBC 7 9.2, hemoglobin 7.8, platelets normal. Basic metabolic panel is within normal limits. Plasma lactic acid today is 2.3, T-bilirubin is 6.2, AST 114, ALT 23, alkaline phosphatase 461. IMPRESSION: 1. Acute alcoholic hepatitis with possible portal hypertension. 2. Abdominal distention, r/o ascites. 3. Anemia, but clinically no evidence of active bleeding. She did have significant vaginal bleeding a few days ago. 4. Acute alcohol withdrawal, being monitored closely. 5. Lactic acidosis secondary to underlying chronic liver disease and acute alcoholic hepatitis. RECOMMENDATIONS: 1. Await results of ultrasound of the abdomen. 2. Continue with oral lactulose for chronic constipation as well as underlying chronic liver disease. 3. Monitor LFTs on a daily basis. 4. Management of alcohol withdrawal. 5. Advance to regular low-salt diet. Will follow with you closely. Thank you for this consultation. MMODL / IJN: [id number] /
--- NOTE | 2020-01-07 15:03 | P.PN ---
Subjective 29-year-old female came in with complaints of abdominal pain prominently in the epigastric area burning sensation. Nonradiating abdominal pain and mild to moderate severity her abdominal pain resolved. Patient is an alcoholic does drink alcohol daily basis does appear to have mild ascites clinically along with mildly elevated INR of 1.2. Patient drinks about a pint of alcohol every day patient last drink was yesterday morning patient is already having withdrawals patient is on alcohol withdrawal precautions. Patient denied any fever chills patient was having will nausea yesterday which resolved at this time. Patient is bit tachycardic with elevated lactic acid secondary to liver failure. Ammonia level is 23 liver enzymes are elevated along with the elevated bilirubin of 5.2 patient has low hemoglobin of 8.1 patient was recently treated for vaginal bleeding. 01/07/2020 Patient is still having significant withdrawals patient is still drowsy because of Ativan and not able to answer questions very well patient is comparing of abd ominal pain which is crampy in nature the midabdomen ultrasound of the abdomen did show some thickening of the gallbladder but appears to be secondary to mild ascites she is having. Patient is being treated for cirrhosis and alcoholic hepatitis as well. Patient had a low-grade fever. Which is believed to be secondary to atelectasis rest of the workup is negative for sepsis. Patient remains tachycardic part of which is secondary to fever and part of which is secondary to alcohol withdrawal we'll use low-dose of metoprolol blood pressure is borderline. We'll also an beta-hCG unfortunately this was not obtained since her admission. Constitutional: Denied any fatigue denied any fever. Cardio vascular: denied any chest pain, palpitations Gastrointestinal as mentioned in HPI Pulmonary: Denied any shortness of breath cough Neurologic denied any new focal deficits All inpatient medications were reviewed and appropriate changes in these medications as dictated in the interval history and assessment and plan. Objective - Vital Signs Vital signs: Vital Signs Temp 98.8 F 01/07/20 12:00 Pulse 125 H 01/07/20 13:00 Resp 15 01/07/20 13:00 BP 94/66 01/07/20 13:00 Pulse Ox 94 L 01/07/20 13:00 Intake & Output 01/06/20 01/07/20 01/07/20 18:59 06:59 18:59 Intake Total 4550 1400 840 Output Total 525 925 450 Balance 4025 475 390 Weight 82 kg 84.3 kg Intake: Intake, IV Titration 3800 1400 840 Amount Sodium Chloride 0.9% 1, 800 1400 840 000 ml @ 120 mls/hr IV . Q8H20M CE Rx#:[id number] Sodium Chloride 0.9% 1, 1000 000 ml @ 999 mls/hr IV . Q1H1M ONE Rx#:[id number] Sodium Chloride 0.9% 1, 2000 000 ml @ 999 mls/hr IV . Q1H1M ONE Rx#:[id number] Oral 750 Output: Urine 525 925 450 Other: # Voids 0 - Exam PHYSICAL EXAMINATION: GENERAL: is drowsy HEENT: Pupils are round and equally reacting to light. EOMI. No scleral icterus. No conjunctival pallor. Normocephalic, atraumatic. No pharyngeal erythema. No thyromegaly. CARDIOVASCULAR: S1 and S2 present. No murmurs, rubs, or gallops. PULMONARY: Chest is clear to auscultation, no wheezing or crackles. ABDOMEN: Soft, nontender, nondistended, normoactive bowel sounds. No palpable organomegaly. Mild ascites MUSCULOSKELETAL: No joint swelling or deformity. EXTREMITIES: No cyanosis, clubbing, or pedal edema. NEUROLOGICAL: Gross neurological examination did not reveal any focal deficits. SKIN: No rashes. - Labs CBC & Chem 7: 01/07/20 05:19 01/07/20 05:19 Labs: Abnormal Lab Results - Last 24 Hours (Table) 01/06/20 01/06/20 01/06/20 Range/Units 00:33 16:58 21:26 RBC (3.80-5.40) m/uL Hgb (11.4-16.0) gm/dL Hct (34.0-46.0) % RDW (11.5-15.5) % Neutrophils # (1.3-7.7) k/uL Lymphocytes # (1.0-4.8) k/uL Sodium (137-145) mmol/L BUN (7-17) mg/dL Creatinine (0.52-1.04) mg/dL POC Glucose (mg/dL) 104 H (75-99) mg/dL Plasma Lactic Acid John 4.3 H* 4.0 H* (0.7-2.0) mmol/L Calcium (8.4-10.2) mg/dL Total Bilirubin (0.2-1.3) mg/dL AST (14-36) U/L Alkaline Phosphatase (38-126) U/L Total Protein (6.3-8.2) g/dL Albumin (3.5-5.0) g/dL 01/07/20 01/07/20 01/07/20 Range/Units 01:41 05:19 05:19 RBC 2.49 L (3.80-5.40) m/uL Hgb 7.8 L (11.4-16.0) gm/dL Hct 23.9 L (34.0-46.0) % RDW 18.2 H (11.5-15.5) % Neutrophils # 8.2 H (1.3-7.7) k/uL Lymphocytes # 0.7 L (1.0-4.8) k/uL Sodium 131 L (137-145) mmol/L BUN <2 L (7-17) mg/dL Creatinine 0.28 L (0.52-1.04) mg/dL POC Glucose (mg/dL) (75-99) mg/dL Plasma Lactic Acid John 4.7 H* (0.7-2.0) mmol/L Calcium 7.5 L (8.4-10.2) mg/dL Total Bilirubin 6.2 H (0.2-1.3) mg/dL AST 114 H (14-36) U/L Alkaline Phosphatase 461 H (38-126) U/L Total Protein 5.1 L (6.3-8.2) g/dL Albumin 2.1 L (3.5-5.0) g/dL 01/07/20 01/07/20 Range/Units 05:19 09:03 RBC (3.80-5.40) m/uL Hgb (11.4-16.0) gm/dL Hct (34.0-46.0) % RDW (11.5-15.5) % Neutrophils # (1.3-7.7) k/uL Lymphocytes # (1.0-4.8) k/uL Sodium (137-145) mmol/L BUN (7-17) mg/dL Creatinine (0.52-1.04) mg/dL POC Glucose (mg/dL) (75-99) mg/dL Plasma Lactic Acid John 2.8 H* 2.3 H* (0.7-2.0) mmol/L Calcium (8.4-10.2) mg/dL Total Bilirubin (0.2-1.3) mg/dL AST (14-36) U/L Alkaline Phosphatase (38-126) U/L Total Protein (6.3-8.2) g/dL Albumin (3.5-5.0) g/dL Assessment and Plan Plan: -Alcohol withdrawal, delirium tremens patient is on Ativan CIWA protocol alcohol cessation counseling was provided. She is having significant withdrawals -Low-grade fever secondary to -Abdominal pain probably secondary to alcoholic gastritis patient is on IV Pepcid with improved symptoms which will be continued. Patient does have ascites low suspicion for spontaneous better peritonitis -Mild acquired lefty secondary to possible cirrhosis -Acute alcoholic hepatitis with possibly of cirrhosis OF THE ABDOMEN IS BEING OBTAINED TO ASSESS FOR ASCITES -ANEMIA APPEARS TO BE CHRONIC NO ACUTE GI BLEED OR VAGINAL BLEED AND ANEMIA IS PROBABLY MULTIFACTORIAL INCLUDING IRON DEFICIENCY AND SECONDARY TO ALCOHOL abuse or liver disease. -Tachycardia secondary to alcohol withdrawal will use a beta corine if needed as clonidine is controlled the blood pressure significantly patient blood pressure is already low. Hypokalemia potassium is being supplemented -Lactic acidosis secondary to liver failure continue with IV fluids at this time. -Obstructive jaundice secondary to either alcoholic hepatitis or cirrhosis DVT prophylaxis with subcutaneous heparin
[2020-01-07] MEDS: METOPROLOL TARTRATE 12.5 MG TAB PO SCH (21:30)
[2020-01-08] MEDS: HYDROmorphone 0.5 MG/0.5 ML SYRINGE IVP PRN ×3 (00:09→20:07)
[2020-01-08] MEDS: LORazepam 2 MG/ML INJ IV PRN ×6 (01:29→22:22)
[2020-01-08] MEDS: ONDANSETRON 4 MG/2 ML VIAL IVP PRN ×2 (04:58→20:07)
[2020-01-08] MEDS: THIAMINE 100 MG TAB PO SCH ×2 (05:00→16:44)
[2020-01-08] MEDS: HYDROcodone/APAP 5-325MG 1 EACH TAB PO PRN ×2 (05:00→11:13)
[2020-01-08] MEDS: SODIUM CHLORIDE 0.9% 1,000 ML IV SCH ×2 (06:17→11:18)
[2020-01-08 07:57] LABS: ALT 19 U/L (4-34); AST 74 U/L (14-36); African American GFR (CKD) >90 (>60 ml/min/1.73 sqM); Albumin 2.1 g/dL (3.5-5.0); Alkaline Phosphatase 391 U/L (38-126); Anion Gap 8 mmol/L; Blood Urea Nitrogen <2 mg/dL (7-17); Calcium 7.5 mg/dL (8.4-10.2); Carbon Dioxide 24 mmol/L (22-30); Chloride 100 mmol/L (98-107); Glucose 75 mg/dL (74-99); Non-African American GFR(CKD) >90 (>60 ml/min/1.73 sqM); Potassium 3.4 mmol/L (3.5-5.1); Sodium 132 mmol/L (137-145); Total Bilirubin 6.4 mg/dL (0.2-1.3); Total Protein 5.1 g/dL (6.3-8.2)
[2020-01-08] MEDS: levETIRAcetam 500 MG TAB PO SCH ×2 (08:03→20:07)
[2020-01-08] MEDS: FAMOTIDINE 20 MG TAB PO SCH ×2 (08:04→20:08)
[2020-01-08] MEDS: MULTIVITAMINS, THERA 1 EACH TAB PO SCH (08:04)
[2020-01-08] MEDS: METOPROLOL TARTRATE 12.5 MG TAB PO SCH ×2 (08:04→20:07)
[2020-01-08] MEDS: HEPARIN SODIUM,PORCINE 5,000 UNIT/ML 1 ML VIAL SQ SCH ×2 (08:04→20:07)
[2020-01-08] MEDS ORDERED: IOPAMIDOL CONTRAST (ORAL USE) VIAL PO PRN (12:24)
--- NOTE | 2020-01-08 12:38 | P.PN ---
Subjective 29-year-old female came in with complaints of abdominal pain prominently in the epigastric area burning sensation. Nonradiating abdominal pain and mild to moderate severity her abdominal pain resolved. Patient is an alcoholic does drink alcohol daily basis does appear to have mild ascites clinically along with mildly elevated INR of 1.2. Patient drinks about a pint of alcohol every day patient last drink was yesterday morning patient is already having withdrawals patient is on alcohol withdrawal precautions. Patient denied any fever chills patient was having will nausea yesterday which resolved at this time. Patient is bit tachycardic with elevated lactic acid secondary to liver failure. Ammonia level is 23 liver enzymes are elevated along with the elevated bilirubin of 5.2 patient has low hemoglobin of 8.1 patient was recently treated for vaginal bleeding. 01/07/2020 Patient is still having significant withdrawals patient is still drowsy because of Ativan and not able to answer questions very well patient is comparing of abd ominal pain which is crampy in nature the midabdomen ultrasound of the abdomen did show some thickening of the gallbladder but appears to be secondary to mild ascites she is having. Patient is being treated for cirrhosis and alcoholic hepatitis as well. Patient had a low-grade fever. Which is believed to be secondary to atelectasis rest of the workup is negative for sepsis. Patient remains tachycardic part of which is secondary to fever and part of which is secondary to alcohol withdrawal we'll use low-dose of metoprolol blood pressure is borderline. We'll also an beta-hCG unfortunately this was not obtained since her admission. 01/08/2020 Patient can use to have fever blood cultures will be obtained as well as obtain a computed tomography scan of the abdomen to rule out any intra-abdominal abscesses possibilities that is contributing to her fever. Patient will be started on Unasyn patient didn't of drinking alcohol that she was able to hide in her room she still having withdrawals. Constitutional: Denied any fatigue denied any fever. Cardio vascular: denied any chest pain, palpitations Gastrointestinal as mentioned in HPI Pulmonary: Denied any shortness of breath cough Neurologic denied any new focal deficits All inpatient medications were reviewed and appropriate changes in these medications as dictated in the interval history and assessment and plan. Objective - Vital Signs Vital signs: Vital Signs Temp 100.6 F H 01/08/20 11:10 Pulse 116 H 01/08/20 11:10 Resp 16 01/08/20 11:10 BP 99/54 01/08/20 11:10 Pulse Ox 96 01/08/20 11:10 Intake & Output 01/07/20 01/08/20 01/08/20 18:59 06:59 18:59 Intake Total 1080 840 Output Total 650 Balance 430 840 Weight 83.6 kg Intake: Intake, IV Titration 1080 Amount Sodium Chloride 0.9% 1, 1080 000 ml @ 120 mls/hr IV . Q8H20M CE Rx#:[id number] Oral 840 Output: Urine 650 Other: # Voids 2 1 - Exam PHYSICAL EXAMINATION: GENERAL: is drowsy HEENT: Pupils are round and equally reacting to light. EOMI. No scleral icterus. No conjunctival pallor. Normocephalic, atraumatic. No pharyngeal erythema. No thyromegaly. CARDIOVASCULAR: S1 and S2 present. No murmurs, rubs, or gallops. PULMONARY: Chest is clear to auscultation, no wheezing or crackles. ABDOMEN: Soft, nontender, nondistended, normoactive bowel sounds. No palpable organomegaly. Mild ascites MUSCULOSKELETAL: No joint swelling or deformity. EXTREMITIES: No cyanosis, clubbing, or pedal edema. NEUROLOGICAL: Gross neurological examination did not reveal any focal deficits. SKIN: No rashes. - Labs CBC & Chem 7: 01/07/20 05:19 01/08/20 06:56 Labs: Abnormal Lab Results - Last 24 Hours (Table) 01/08/20 Range/Units 06:56 Sodium 132 L (137-145) mmol/L Potassium 3.4 L (3.5-5.1) mmol/L BUN <2 L (7-17) mg/dL Creatinine 0.33 L (0.52-1.04) mg/dL Calcium 7.5 L (8.4-10.2) mg/dL Total Bilirubin 6.4 H (0.2-1.3) mg/dL AST 74 H (14-36) U/L Alkaline Phosphatase 391 H (38-126) U/L Total Protein 5.1 L (6.3-8.2) g/dL Albumin 2.1 L (3.5-5.0) g/dL Assessment and Plan Plan: -Alcohol withdrawal, delirium tremens patient is on Ativan CIWA protocol alcohol cessation counseling was provided. She is having significant withdrawals -Possible sepsis source of infection is unknown Unasyn will be started although workup is only significant for some atelectasis on the chest x-ray patient will obtain a computed tomography scan of the abdomen to rule out any intra-abdominal abscess although I cannot completely rule out spontaneous bacterial peritonitis as source of fever and infection -Abdominal pain probably secondary to alcoholic gastritis patient is on IV Pepcid with improved symptoms which will be continued. I cannot rule out SBP -Mild acquired lefty secondary to possible cirrhosis -Acute alcoholic hepatitis with possibly of cirrhosis, patient does have ascites still on IV fluids which will be discontinued -High port 8 anemia probably hypervolemic hyponatremia will discontinue IV fluids. -ANEMIA APPEARS TO BE CHRONIC NO ACUTE GI BLEED OR VAGINAL BLEED AND ANEMIA IS P ROBABLY MULTIFACTORIAL INCLUDING IRON DEFICIENCY AND SECONDARY TO ALCOHOL abuse or liver disease. -Tachycardia secondary to alcohol withdrawal will use a beta corine if needed as clonidine is controlled the blood pressure significantly patient blood pressure is already low. Hypokalemia potassium is being supplemented -Lactic acidosis secondary to liver failure continue with IV fluids at this time . -Obstructive jaundice secondary to either alcoholic hepatitis or cirrhosis DVT prophylaxis with subcutaneous heparin
--- NOTE | 2020-01-08 12:39 | P.GSCN ---
History of Present Illness Consult date: 01/08/20 Reason for Consult: Abdominal pain History of present illness: 29-year-old female who is known to our service. Patient with recent admission i november for alcohol-induced hepatitis and pancreatitis. Apparently she is homeless now. She came back to the hospital with bloating and upper abdominal pain. Ultrasound was performed which showed once again a thickened gallbladder wall and ascites. Patient's liver enzymes significantly elevated. CAT scan has been ordered because of low-grade fevers currently thought to be related to atelectasis. Amylase and lipase this admission are normal. Bilirubin 6. GI is following. We were consulted after the ultrasound showed a thickened gallbladder wall. No stones seen. Patient has been receiving Ativan for alcohol withdrawal symptoms. Patient is somewhat sedated currently. Not able to provide any significant history. Review of Systems The patient denies any acute changes in vision or hearing, no dysphagia or odynophagia, no chest pain or shortness of breath, no dysuria or hematuria, no headache, no runny nose, no rectal bleeding or melena, no unexplained weight loss Past Medical History Past Medical History: Liver Disease, Pneumonia, Seizure Disorder Additional Past Medical History / Comment(s): Past obstetrical history significant for 1 section for failure to progress. ETOH abuse. Bronchitis, Sepsis (2013) History of Any Multi-Drug Resistant Organisms: None Reported Past Surgical History: Section, Orthopedic Surgery Additional Past Surgical History / Comment(s): 2 rt foot sx in past Past Anesthesia/Blood Transfusion Reactions: Motion Sickness Past Psychological History: ADD/ADHD, Anxiety Smoking Status: Former smoker Past Alcohol Use History: Abuse, Daily Additional Past Alcohol Use History / Comment(s): She states she drinks 2 gallon of vodka in 2 days. She states she has to have a drink in the morning when she wakes up to control her tremors and nausea. She does state that she has been to rehab in the past and it does not work for her. Past Drug Use History: None Reported - Past Family History Father Family Medical History: No Reported History Mother Family Medical History: No Reported History Medications and Allergies Home Medications Medication Instructions Recorded Confirmed Type Dextroamphetamine/Amphetamine 20 mg PO TID PRN 06/17/19 01/06/20 History [Adderall] levETIRAcetam [Keppra] 1,000 mg PO BID 06/17/19 01/06/20 History Ondansetron HCl [Zofran] 8 mg PO Q8HR PRN 11/28/19 01/06/20 History Ascorbic Acid [Vitamin C] 1,000 mg PO DAILY 01/06/20 01/06/20 History Potassium Gluconate 99 mg PO DAILY 01/06/20 01/06/20 History traZODone HCL [Desyrel] 100 mg PO HS PRN 01/06/20 01/06/20 History Allergies Allergy/AdvReac Type Severity Reaction Status Date / Time ceftriaxone Allergy Anaphylaxis Verified 01/06/20 09:33 Penicillins Allergy Rash/Hives Verified 01/06/20 09:33 Surgical - Exam Vital Signs Resp BP Pulse Ox 20 110/72 94 L 01/06/20 00:30 01/06/20 00:30 01/06/20 00:30 Physical exam: General: Well-developed, well-nourished HEENT: Normocephalic, sclerae nonicteric Abdomen: Mild upper abdominal tenderness bilaterally, mild distention Extremities: No edema Neuro: Alert and oriented Results - Labs 01/07/20 05:19 01/08/20 06:56 Abnormal Lab Results - Last 24 Hours (Table) 01/08/20 Range/Units 06:56 Sodium 132 L (137-145) mmol/L Potassium 3.4 L (3.5-5.1) mmol/L BUN <2 L (7-17) mg/dL Creatinine 0.33 L (0.52-1.04) mg/dL Calcium 7.5 L (8.4-10.2) mg/dL Total Bilirubin 6.4 H (0.2-1.3) mg/dL AST 74 H (14-36) U/L Alkaline Phosphatase 391 H (38-126) U/L Total Protein 5.1 L (6.3-8.2) g/dL Albumin 2.1 L (3.5-5.0) g/dL Diabetes panel 01/08/20 Range/Units 06:56 Sodium 132 L (137-145) mmol/L Potassium 3.4 L (3.5-5.1) mmol/L Chloride 100 (98-107) mmol/L Carbon Dioxide 24 (22-30) mmol/L BUN <2 L (7-17) mg/dL Creatinine 0.33 L (0.52-1.04) mg/dL Glucose 75 (74-99) mg/dL Calcium 7.5 L (8.4-10.2) mg/dL AST 74 H (14-36) U/L ALT 19 (4-34) U/L Alkaline Phosphatase 391 H (38-126) U/L Total Protein 5.1 L (6.3-8.2) g/dL Albumin 2.1 L (3.5-5.0) g/dL Calcium panel 01/08/20 Range/Units 06:56 Calcium 7.5 L (8.4-10.2) mg/dL Albumin 2.1 L (3.5-5.0) g/dL Pituitary panel 01/08/20 Range/Units 06:56 Sodium 132 L (137-145) mmol/L Potassium 3.4 L (3.5-5.1) mmol/L Chloride 100 (98-107) mmol/L Carbon Dioxide 24 (22-30) mmol/L BUN <2 L (7-17) mg/dL Creatinine 0.33 L (0.52-1.04) mg/dL Glucose 75 (74-99) mg/dL Calcium 7.5 L (8.4-10.2) mg/dL Adrenal panel 01/08/20 Range/Units 06:56 Sodium 132 L (137-145) mmol/L Potassium 3.4 L (3.5-5.1) mmol/L Chloride 100 (98-107) mmol/L Carbon Dioxide 24 (22-30) mmol/L BUN <2 L (7-17) mg/dL Creatinine 0.33 L (0.52-1.04) mg/dL Glucose 75 (74-99) mg/dL Calcium 7.5 L (8.4-10.2) mg/dL Total Bilirubin 6.4 H (0.2-1.3) mg/dL AST 74 H (14-36) U/L ALT 19 (4-34) U/L Alkaline Phosphatase 391 H (38-126) U/L Total Protein 5.1 L (6.3-8.2) g/dL Albumin 2.1 L (3.5-5.0) g/dL Assessment and Plan Assessment: 29-year-old female with significant ongoing alcohol use. Recent admission for alcohol-induced hepatitis and pancreatitis. Currently with upper abdominal pain right and left upper quadrants. Agree with presumptive diagnosis of alcohol- induced gastritis. Patient may be having some discomfort from the liver itself. CAT scan has been ordered. Will review once obtained. We will follow with you.
--- NOTE | 2020-01-08 13:44 | CT ---
EXAMINATION TYPE: CT abdomen pelvis w con DATE OF EXAM: 01/08/2020 COMPARISON: 06/17/2019 HISTORY: ascites, pain CT DLP: 1601.4 mGycm CONTRAST: CT scan of the abdomen and pelvis is performed with Oral Contrast and with IV Contrast, patient injec prashant with 100 mL of Isovue 300. FINDINGS: LUNG BASES-: Bilateral pleural effusions noted as well as basilar compressive atelectasis. LIVER/GB: No calcified gallstones. There is hepatomegaly with underlying fatty hepatic infiltratio n. There is distention of the gallbladder measuring approximately 8 cm in greatest dimension. Fluid i s seen about the gallbladder as well as about the liver edge. No space occupying hepatic lesion. Bili freddy tree is of normal caliber. PANCREAS: No inflammation. No distinct mass. SPLEEN: Splenomegaly measuring 14.2 cm craniocaudal dimension. No lesion seen. ADRENALS: No nodule. No thickening. KIDNEYS/BLADDER: No hydronephrosis. 3 mm nonobstructing calculus upper pole left kidney. No distinct renal mass. Urinary bladder grossly unremarkable. BOWEL: Normal appendix. Normal bowel caliber. Wall thickening right hemicolon may reflect underlying colitis nonspecific type. The remainder of the small and large bowel are of normal caliber. GENITAL ORGANS: No gross abnormality. LYMPH NODES: No greater than 1cm abdominal or pelvic lymph nodes are appreciated. AORTA: No significant abnormality. OSSEOUS STRUCTURES: No significant abnormality is seen. OTHER: Ascites throughout the abdomen and pelvis mild in degree although moderate within the pelvis. IMPRESSION: 1. Correlate for Budd-Chiari syndrome. Intrahepatic portion of the IVC is diminutive in size. There i s hepatosplenomegaly noted as well as ascites and pleural effusions. Recanalized umbilical vein noted . 2. Wall thickening right hemicolon may reflect nonspecific colitis. Correlate clinically.
[2020-01-08] MEDS ORDERED: Potassium Replacement Protocol 1 EACH MISC MISCELLANE PRN (14:51)
[2020-01-08] MEDS: POTASSIUM CHLORIDE ER 20 MEQ TAB.ER PO SCH ×2 (15:30→16:44)
--- NOTE | 2020-01-08 16:44 | PN ---
PROGRESS NOTE PULMONARY/CRITICAL CARE PROGRESS NOTE: DATE OF SERVICE: 01/08/2020 This is a 29-year-old female with history of chronic alcohol abuse with alcoholic hepatitis and chronic liver disease secondary to significant alcohol intake. The patient was admitted with a diagnosis of probable alcohol withdrawal syndrome and possible delirium tremens. She was in the ICU. She was transferred out yesterday. In addition, she has a history of mild lactic acidosis which has resolved itself, sinus tachycardia, seizure disorder, anemia and hyperbilirubinemia. Currently doing reasonably well. Not requiring any supplemental oxygen. She does have a sitter in the room. No major complaints other than the fact that she "does not feel well." PHYSICAL EXAMINATION: VITAL SIGNS: Current vital signs are reviewed. Temperature is 100.6, heart rate 116, respiratory rate 16, blood pressure 99/54, mean 69, room-air saturation 96%. GENERAL APPEARANCE: Appears in no acute distress. HEENT: Examination is grossly unremarkable. No supplemental oxygen noted. NECK: Supple. Full range of motion. CARDIOVASCULAR: Examination reveals mild tachycardia. I have the heart rate right around 100 or so. It is sinus and regular. LUNGS: Lungs reveal clear breath sounds. ABDOMEN: Mildly distended. EXTREMITIES: Intact. SKIN: Skin reveals evidence of jaundice. She also has scleral icterus. NEUROLOGIC: Neurologic examination is brief but nonfocal. LABS/IMAGING: Reviewed. Sodium 132, potassium 3.4, chloride 100, CO2 24, anion gap 8. BUN and creatinine were less than 2 and 0.33. Lactic acid is down to 1.9. Calcium 7.5, total bilirubin 6.4, and albumin is 2.1. Microbiology is pending or negative. CT scan of abdomen and pelvis was ordered. It shows possible Budd-Chiari syndrome with intrahepatic portions of the IVC which is diminutive in size. There is hepatic splenomegaly noted as well as ascites and pleural effusions. Recanalized umbilical vein is also noted. There is also thickening of the right hemicolon which might reflect nonspecific colitis. Medications are reviewed. ASSESSMENT: 1. History of chronic alcohol abuse with likely acute alcoholic hepatitis. 2. History of alcoholic liver disease with chronic alcohol abuse and probable acute alcohol withdrawal syndrome. 3. Rule out delirium tremens. 4. Seizure disorder, which may relate to alcohol-induced seizures. 5. Sinus tachycardia, likely secondary to alcohol withdrawal syndrome. 6. Lactic acidosis, resolved. 7. Anemia of chronic disease. 8. Hyperbilirubinemia. 9. History of vaginal bleeding. 10.Prior history of tobacco use. 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 PLAN: The patient will be followed. She was moved out of the ICU yesterday. She continues to receive IV fluids. She does have a sitter in place. Will continue to watch her closely for any evidence of severe alcohol withdrawal syndrome. She continues to get Ativan as needed. No additional recommendations are made. Prognosis is poor. MMODL / IJN: [id number] /
[2020-01-08] MEDS: LEVOFLOXACIN 500MG-D5W PMX 500 MG in DEXTROSE/WATER 1 100ML.BAG IVPB SCH (20:11)
--- NOTE | 2020-01-09 01:03 | PN ---
PROGRESS NOTE DATE OF DICTATION: 01/08/2020 The patient is a 29-year-old pleasant white female with history of alcohol abuse admitted to the hospital with abdominal pain, abdominal distention and acute alcoholic hepatitis. She has history of alcohol abuse for the last 14 years duration. She continues to remain in the intensive care unit and having somewhat agitated and going through alcohol withdrawal. She is being monitored closely. She is very less communicative today and as per the nursing staff has been very agitated and received some Ativan. She had low grade fever with temperature 100.2 this morning. Complains of diffuse abdominal pain and not feeling well. PHYSICAL EXAMINATION: Vital signs show a T-max of 100.6, heart rate 116, respirations 16, blood pressure 99/54. HEENT EXAMINATION: Unremarkable. Conjunctivae pink. Sclerae icteric. Oral cavity, no lesions. NECK: No JVD or lymph node enlargement. CHEST: Clear to auscultation. HEART: Regular rate and rhythm. Tachycardia noted. ABDOMEN: Slightly distended, but there was mild diffuse tenderness noted. No free fluid appreciated. EXTREMITIES: No pedal edema. NEURO: She is responding to verbal stimuli, but she is very lethargic. LABS: Labs done from today: WBC 9.5, hemoglobin 7.8, platelets normal. T-bilirubin 6.4, AST 74, ALT 19, alkaline phosphatase 391. Plasma lactic acid is 1.9. Ultrasound of the abdomen done yesterday did show evidence of mild ascites, hepatomegaly, gallbladder wall thickening with pericholecystic fluid, dilated common bile duct. No gallstones noted and fatty liver seen. IMPRESSION: 1. Acute alcoholic liver disease with acute alcoholic hepatitis. 2. Diffuse abdominal pain. Ultrasound of the abdomen showed evidence of mild ascites and fatty liver. There was evidence of pericholecystic fluid and possibility of acute cholecystitis could not be excluded. 3. Anemia with stable hemoglobin, clinically no active bleeding. 4. Chronic constipation on oral lactulose. RECOMMENDATIONS: 1. Surgical consultation to rule out acute cholecystitis given the abdominal pain and low-grade fever though it can be explained on the basis of acute alcoholic hepatitis. 2. Patient on broad-spectrum antibiotics. 3. Continue with Pepcid 20 mg twice daily. 4. Pain medications as needed. 5. Monitor for alcohol withdrawal and DTs. 6. We will follow with you closely. Thank you for this consultation. MMODL / IJN: [id number] /
[2020-01-09] MEDS: HYDROmorphone 0.5 MG/0.5 ML SYRINGE IVP PRN (01:46)
[2020-01-09] MEDS: LORazepam 2 MG/ML INJ IV PRN ×3 (02:48→23:50)
[2020-01-09] MEDS: THIAMINE 100 MG TAB PO SCH ×2 (03:31→18:30)
[2020-01-09] MEDS: HYDROcodone/APAP 5-325MG 1 EACH TAB PO PRN ×2 (03:31→10:25)
[2020-01-09 07:59] LABS: ALT 16 U/L (4-34); AST 51 U/L (14-36); African American GFR (CKD) >90 (>60 ml/min/1.73 sqM); Alkaline Phosphatase 320 U/L (38-126); Anion Gap 8 mmol/L; Blood Urea Nitrogen <2 mg/dL (7-17); Calcium 7.7 mg/dL (8.4-10.2); Carbon Dioxide 22 mmol/L (22-30); Chloride 103 mmol/L (98-107); Glucose 86 mg/dL (74-99); Non-African American GFR(CKD) >90 (>60 ml/min/1.73 sqM); Potassium 3.6 mmol/L (3.5-5.1); Sodium 133 mmol/L (137-145); Total Bilirubin 6.3 mg/dL (0.2-1.3); Total Protein 4.9 g/dL (6.3-8.2)
[2020-01-09 08:23] LABS: Anisocytosis Slight; Basophils % (A) 0 %; Eosinophils # (A) 0.1 k/uL (0-0.7); Eosinophils % (A) 2 %; HCT 22.2 % (34.0-46.0); Hypochromasia Marked; Lymphocytes # (A) 0.5 k/uL (1.0-4.8); Lymphocytes % (A) 9 %; MCH 30.4 pg (25.0-35.0); MCHC 30.9 g/dL (31.0-37.0); MCV 98.3 fL (80.0-100.0); Macrocytosis Slight; Mean Platelet Volume 9.7; Monocytes # (A) 0.4 k/uL (0-1.0); Monocytes % (A) 6 %; Neutrophils # (A) 4.8 k/uL (1.3-7.7); Neutrophils % (A) 81 %; Platelet Count 214 k/uL (150-450); RBC 2.26 m/uL (3.80-5.40); RDW 19.8 % (11.5-15.5)
[2020-01-09 08:29] LABS: HGB 6.9 gm/dL (11.4-16.0)
--- NOTE | 2020-01-09 09:50 | P.PN ---
<Kennedi Houser - Last Filed: 01/09/20 09:42> Subjective Progress Note Date: 01/09/20 CHIEF COMPLAINT: Abdominal pain HISTORY OF PRESENT ILLNESS: Patient examined this morning at the bedside. Patient is sleepy during examination. She reports epigastric pain and right upper quadrant pain. She reports nausea. Denies vomiting. She reports having a small bowel movement today. Hemoglobin 6.9. CT abdomen and pelvis reveals no calcified gallstones. Hepatomegaly with underlying fatty hepatic infiltration. Distention of the gallbladder measuring 8 cm in greatest dimension. Fluid is seen around the gallbladder as well as liver edge. Biliary tree is of normal caliber. PHYSICAL EXAM: VITAL SIGNS: Reviewed. GENERAL: Well-developed in no acute distress. HEENT: No sclera icterus. Extraocular movements grossly intact. Moist buccal mucosa. Head is atraumatic, normocephalic. ABDOMEN: Soft. Nondistended. Tenderness to epigastric region and right upper quadrant. NEUROLOGIC: Alert and oriented. Cranial nerves II through XII grossly intact. ASSESSMENT: 1. Abdominal pain, possible alcohol-induced gastritis 2. History of alcohol abuse PLAN: -Continue diet as tolerated -Monitor hemoglobin. Defer any transfusions per internal medicine -Dr. Bernard will re-evaluate patient this afternoon. Further recommendations pending. Nurse practitioner note has been reviewed by physician. Signing provider agrees with the documented findings, assessment, and plan of care. Objective - Vital Signs Vital signs: Vital Signs Temp 98.8 F 01/09/20 07:54 Pulse 110 H 01/09/20 07:54 Resp 16 01/09/20 07:54 BP 100/58 01/09/20 07:54 Pulse Ox 95 01/09/20 07:54 Intake & Output 01/08/20 01/09/20 01/09/20 18:59 06:59 18:59 Weight 83.6 kg 84 kg Other: Voiding Method Bedside Commode # Voids 1 5 - Labs CBC & Chem 7: 01/09/20 07:29 01/09/20 07:29 Labs: Abnormal Lab Results - Last 24 Hours (Table) 01/09/20 01/09/20 Range/Units 07:29 07:29 RBC 2.26 L (3.80-5.40) m/uL Hgb 6.9 L* (11.4-16.0) gm/dL Hct 22.2 L (34.0-46.0) % MCHC 30.9 L (31.0-37.0) g/dL RDW 19.8 H (11.5-15.5) % Lymphocytes # 0.5 L (1.0-4.8) k/uL Sodium 133 L (137-145) mmol/L BUN <2 L (7-17) mg/dL Creatinine 0.34 L (0.52-1.04) mg/dL Calcium 7.7 L (8.4-10.2) mg/dL Total Bilirubin 6.3 H (0.2-1.3) mg/dL AST 51 H (14-36) U/L Alkaline Phosphatase 320 H (38-126) U/L Total Protein 4.9 L (6.3-8.2) g/dL Albumin 2.0 L (3.5-5.0) g/dL <Kiko Bernard - Last Filed: 01/09/20 12:39> Subjective As above. Patient remains awake however somewhat lethargic. Able to provide better history than yesterday. Complaining of bilateral upper quadrant abdominal pain. CAT scan reviewed. Gallbladder is distended with some gallbladder wall thickening. No stones identified. Ascites and generalized edema noted. Patient with low-grade fevers. White blood cell count normal. Continue antibiotics. Patient high risks for bleeding or exacerbation of liver failure with surgical intervention. Appearance on gallbladder certainly could be secondary to bowel rest and ascites. Repeat labs tomorrow. We'll follow closely with you. Objective - Vital Signs Vital signs: Vital Signs Temp 100.0 F H 01/09/20 11:52 Pulse 69 01/09/20 11:52 Resp 16 01/09/20 11:52 BP 113/57 01/09/20 11:52 Pulse Ox 96 01/09/20 11:52 Intake & Output 01/08/20 01/09/20 01/09/20 18:59 06:59 18:59 Intake Total 787 Balance 787 Weight 83.6 kg 84 kg Intake: Oral 787 Other: Voiding Method Bedside Commode # Voids 1 5 - Labs CBC & Chem 7: 01/09/20 07:29 01/09/20 07:29 Labs: Abnormal Lab Results - Last 24 Hours (Table) 01/09/20 01/09/2020 Range/Units 07:29 07:29 10:37 RBC 2.26 L (3.80-5.40) m/uL Hgb 6.9 L* (11.4-16.0) gm/dL Hct 22.2 L (34.0-46.0) % MCHC 30.9 L (31.0-37.0) g/dL RDW 19.8 H (11.5-15.5) % Lymphocytes # 0.5 L (1.0-4.8) k/uL Sodium 133 L (137-145) mmol/L BUN <2 L (7-17) mg/dL Creatinine 0.34 L (0.52-1.04) mg/dL Calcium 7.7 L (8.4-10.2) mg/dL Total Bilirubin 6.3 H (0.2-1.3) mg/dL AST 51 H (14-36) U/L Alkaline Phosphatase 320 H (38-126) U/L Total Protein 4.9 L (6.3-8.2) g/dL Albumin 2.0 L (3.5-5.0) g/dL Crossmatch See Detail
[2020-01-09] MEDS: FAMOTIDINE 20 MG TAB PO SCH ×2 (10:40→21:29)
[2020-01-09] MEDS: HEPARIN SODIUM,PORCINE 5,000 UNIT/ML 1 ML VIAL SQ SCH ×2 (10:41→21:19)
[2020-01-09] MEDS: METOPROLOL TARTRATE 12.5 MG TAB PO SCH ×2 (10:42→21:29)
[2020-01-09] MEDS: levETIRAcetam 500 MG TAB PO SCH ×2 (10:42→21:29)
[2020-01-09] MEDS: MULTIVITAMINS, THERA 1 EACH TAB PO SCH (10:43)
[2020-01-09] MEDS: KETOROLAC 30 MG/ML 1 ML VIAL IVP PRN ×2 (13:08→18:33)
--- NOTE | 2020-01-09 14:39 | P.PN ---
Subjective Progress Note Date: 01/09/20 Principal diagnosis: History of chronic alcohol abuse with likely acute alcoholic hepatitis On 01/09/2020 patient seen in follow-up on selective care unit, she is resting in bed, her leg is hanging off the side of the bed, she seen somnolent, but opens eyes to verbal stimulation, she has a public safety officer at the bedside, has intermittent confusion. No signs of any respiratory distress, room air pulse ox is 96%, hemodynamically patient is stable, fever this afternoon, with a temp of 100.0F. Patient is or nonlabored, lung sounds are clear, diminished at the bases. Today's labs have been reviewed, showing with little, 6.0, hemoglobin of 6.9, sodium of 133, the rest of the electrolytes were within normal limits, BUN of less than 2, creatinine is 0.34. Patient will receive a unit of packed red blood cells today. Patient did report some epigastric discomfort apparently had some nausea, no vomiting. Surgery and GI services are following. Patient is on lactulose, antibiotics, and a form of Levaquin, she is on CIWA protocol, she is receiving thiamine replacement Objective - Vital Signs Vital signs: Vital Signs Temp 100.0 F H 01/09/20 11:52 Pulse 69 01/09/20 11:52 Resp 16 01/09/20 11:52 BP 113/57 01/09/20 11:52 Pulse Ox 96 01/09/20 11:52 Intake & Output 01/08/20 01/09/20 01/09/20 18:59 06:59 18:59 Intake Total 787 Balance 787 Weight 83.6 kg 84 kg Intake: Oral 787 Other: Voiding Method Bedside Commode # Voids 1 5 - Exam GENERAL EXAM: Somnolent, intermittently confused, jaundiced 29-year-old white female, sitting in bed, with a public safety officer at the bedside currently on room air with a pulse ox of 96% comfortable in no apparent distress. HEAD: Normocephalic/atraumatic. EYES: Normal reaction of pupils, equal size. Conjunctiva pink, sclera white. NOSE: Clear with pink turbinates. THROAT: No erythema or exudates. NECK: No masses, no JVD, no thyroid enlargement, no adenopathy. CHEST: No chest wall deformity. Symmetrical expansion. LUNGS: Equal air entry with no crackles, wheeze, rhonchi or dullness. CVS: Regular rate and rhythm, normal S1 and S2, no gallops, no murmurs, no rubs ABDOMEN: Soft, nontender. No hepatosplenomegaly, normal bowel sounds, no guarding or rigidity. EXTREMITIES: No clubbing, no edema, no cyanosis, 2+ pulses and upper and lower extremities. MUSCULOSKELETAL: Muscle strength and tone normal. SPINE: No scoliosis or deformity SKIN: No rashes CENTRAL NERVOUS SYSTEM: Somnolent, but easily arousable to verbal stimulation, intermittently confused. No focal deficits, tone is normal in all 4 extremities. - Labs CBC & Chem 7: 01/09/20 07:29 01/09/20 07:29 Labs: Abnormal Lab Results - Last 24 Hours (Table) 01/09/20 01/09/20 01/09/20 Range/Units 07:29 07:29 10:37 RBC 2.26 L (3.80-5.40) m/uL Hgb 6.9 L* (11.4-16.0) gm/dL Hct 22.2 L (34.0-46.0) % MCHC 30.9 L (31.0-37.0) g/dL RDW 19.8 H (11.5-15.5) % Lymphocytes # 0.5 L (1.0-4.8) k/uL Sodium 133 L (137-145) mmol/L BUN <2 L (7-17) mg/dL Creatinine 0.34 L (0.52-1.04) mg/dL Calcium 7.7 L (8.4-10.2) mg/dL Total Bilirubin 6.3 H (0.2-1.3) mg/dL AST 51 H (14-36) U/L Alkaline Phosphatase 320 H (38-126) U/L Total Protein 4.9 L (6.3-8.2) g/dL Albumin 2.0 L (3.5-5.0) g/dL Crossmatch See Detail Assessment and Plan Plan: Assessment: #1. History of chronic alcohol abuse with likely acute alcoholic hepatitis #2. History of alcoholic liver disease with chronic alcohol abuse and probable acute alcohol withdrawal syndrome #3. Rule out delirium tremens #4. Seizure disorder could be induced by alcohol withdrawal syndrome #5. Sinus tachycardia, related to acute alcohol syndrome #6. Lactic acidosis, resolved #7. Anemia of chronic disease #8. Hyperbilirubinemia #9. 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 Continue with thiamine replacement, and MVI replacement. Surgical services are following, GI service is following. I performed a history & physical examination of the patient and discussed their management with my nurse practitioner, Cecille Rios. I reviewed the nurse practitioner's note and agree with the documented findings and plan of care. Lung sounds are positive for diminished breath sounds at the bases. The findings and the impression was discussed with the patient. I attest to the documentation by the nurse practitioner. Time with Patient: Less than 30
--- NOTE | 2020-01-09 16:05 | P.PN ---
Subjective Progress Note Date: 01/09/20 Principal diagnosis: 29-year-old female came in with complaints of abdominal pain prominently in the epigastric area burning sensation. Nonradiating abdominal pain and mild to mod erate severity her abdominal pain resolved. Patient is an alcoholic does drink alcohol daily basis does appear to have mild ascites clinically along with mildly elevated INR of 1.2. Patient drinks about a pint of alcohol every day patient last drink was yesterday morning patient is already having withdrawals patient is on alcohol withdrawal precautions. Patient denied any fever chills patient was having will nausea yesterday which resolved at this time. Patient is bit tachycardic with elevated lactic acid secondary to liver failure. Ammonia level is 23 liver enzymes are elevated along with the elevated bilirubin of 5.2 patient has low hemoglobin of 8.1 patient was recently treated for v aginal bleeding. 01/07/2020 Patient is still having significant withdrawals patient is still drowsy because of Ativan and not able to answer questions very well patient is comparing of abdominal pain which is crampy in nature the midabdomen ultrasound of the abdomen did show some thickening of the gallbladder but appears to be secondary to mild ascites she is having. Patient is being treated for cirrhosis and alcoholic hepatitis as well. Patient had a low-grade fever. Which is believed to be secondary to atelectasis rest of the workup is negative for sepsis. Patient remains tachycardic part of which is secondary to fever and part of which is secondary to alcohol withdrawal we'll use low-dose of metoprolol blood pressure is borderline. We'll also an beta-hCG unfortunately this was not obtained since her admission. 01/08/2020 Patient can use to have fever blood cultures will be obtained as well as obtain a computed tomography scan of the abdomen to rule out any intra-abdominal abs cesses possibilities that is contributing to her fever. Patient will be started on Unasyn patient didn't of drinking alcohol that she was able to hide in her room she still having withdrawals. Constitutional: Denied any fatigue denied any fever. Cardio vascular: denied any chest pain, palpitations Gastrointestinal as mentioned in HPI Pulmonary: Denied any shortness of breath cough Neurologic denied any new focal deficits All inpatient medications were reviewed and appropriate changes in these medications as dictated in the interval history and assessment and plan. 01/09/2020 Patient seen and evaluated in follow-up today with no acute overnight issues. Patient has been afebrile today. Hemoglobin this morning 6.9 and awaiting to receive 1 unit of PRBCs. Multiple consultations following. Patient is maintained on alcohol withdrawal protocol and does have a sitter at the bedside for safety. Patient states that she feels nauseated at times although is eating small amounts of meals. No reports of chest pain, shortness of breath, or palpitations. No reports of vomiting just intermittent nausea as mentioned previously. Objective - Vital Signs Vital signs: Vital Signs Temp 100.0 F H 01/09/20 11:52 Pulse 69 01/09/20 11:52 Resp 16 01/09/20 11:52 BP 113/57 01/09/20 11:52 Pulse Ox 96 01/09/20 11:52 Intake & Output 01/08/20 01/09/20 01/09/20 18:59 06:59 18:59 Intake Total 1034 Balance 1034 Weight 83.6 kg 84 kg Intake: Oral 1034 Other: Voiding Method Bedside Commode # Voids 1 5 4 - Exam GENERAL: Patient is awake, alert and oriented 2. Flat affect HEENT: Pupils are round and equally reacting to light. EOMI. No scleral icterus. No conjunctival pallor. Normocephalic, atraumatic. No pharyngeal erythema. No th yromegaly. CARDIOVASCULAR: S1 and S2 present. No murmurs, rubs, or gallops. PULMONARY: Chest is clear to auscultation, no wheezing or crackles. ABDOMEN: Soft, nontender, nondistended, normoactive bowel sounds. No palpable organomegaly. Mild ascites MUSCULOSKELETAL: No joint swelling or deformity. EXTREMITIES: No cyanosis, clubbing, or pedal edema. NEUROLOGICAL: Gross neurological examination did not reveal any focal deficits. SKIN: No rashes. - Labs CBC & Chem 7: 01/09/20 07:29 01/09/20 07:29 Labs: Abnormal Lab Results - Last 24 Hours (Table) 01/09/20 01/09/20 01/09/20 Range/Units 07:29 07:29 10:37 RBC 2.26 L (3.80-5.40) m/uL Hgb 6.9 L* (11.4-16.0) gm/dL Hct 22.2 L (34.0-46.0) % MCHC 30.9 L (31.0-37.0) g/dL RDW 19.8 H (11.5-15.5) % Lymphocytes # 0.5 L (1.0-4.8) k/uL Sodium 133 L (137-145) mmol/L BUN <2 L (7-17) mg/dL Creatinine 0.34 L (0.52-1.04) mg/dL Calcium 7.7 L (8.4-10.2) mg/dL Total Bilirubin 6.3 H (0.2-1.3) mg/dL AST 51 H (14-36) U/L Alkaline Phosphatase 320 H (38-126) U/L Total Protein 4.9 L (6.3-8.2) g/dL Albumin 2.0 L (3.5-5.0) g/dL Crossmatch See Detail Microbiology - Last 24 Hours (Table) 01/08/20 13:00 Blood Culture - Preliminary Blood No Growth after 24 hours Assessment and Plan Assessment: -Alcohol withdrawal, delirium tremens patient is on Ativan CIWA protocol alcohol cessation counseling was provided. She is having significant withdrawals, slightly improved today -Possible sepsis source of infection is unknown Unasyn will be started although workup is only significant for some atelectasis on the chest x-ray patient will obtain a computed tomography scan of the abdomen to rule out any intra-abdominal abscess although I cannot completely rule out spontaneous bacterial peritonitis as source of fever and infection, blood cultures thus far remain negative -Abdominal pain probably secondary to alcoholic gastritis patient is on IV Pepcid with improved symptoms which will be continued. I cannot rule out SBP -Mild acquired lefty secondary to possible cirrhosis -Acute alcoholic hepatitis with possibly of cirrhosis, patient does have ascites still on IV fluids which will be discontinued -Hyponatremia probably hypervolemic hyponatremia will discontinue IV fluids. -ANEMIA APPEARS TO BE CHRONIC NO ACUTE GI BLEED OR VAGINAL BLEED AND ANEMIA IS PROBABLY MULTIFACTORIAL INCLUDING IRON DEFICIENCY AND SECONDARY TO ALCOHOL abuse or liver disease. -Tachycardia secondary to alcohol withdrawal will use a beta corine if needed as clonidine is controlled the blood pressure significantly patient blood pressure is already low. -Hypokalemia potassium is being supplemented, improved early 3.6 -Lactic acidosis secondary to liver failure continue with IV fluids at this time, improved -Obstructive jaundice secondary to either alcoholic hepatitis or cirrhosis -DVT prophylaxis with subcutaneous heparin
[2020-01-09] MEDS: metroNIDAZOLE-NS PMX 500 MG in SALINE 1 100ML.BAG IVPB SCH ×2 (16:53→23:39)
--- NOTE | 2020-01-09 17:49 | PN ---
PROGRESS NOTE DATE OF DICTATION: 01/09/2020 This patient is a 29-year-old pleasant young girl admitted to the hospital with altered mental status, abdominal pain, not feeling well for the last few days, history of heavy alcohol abuse. She was noted to have elevated serum transaminases and jaundice consistent with acute alcoholic hepatitis. The patient has been having low-grade fever since yesterday morning. Dr. Bernard has been consulted for possible acute cholecystitis. At this time he recommended continuing conservative approach with antibiotics and observation. The patient complains of diffuse abdominal pain. She reports no nausea, vomiting. Has decreased oral intake. No rectal bleeding or melena. No vaginal bleeding. PHYSICAL EXAMINATION: She seems somewhat lethargic. T-max 100, pulse rate 69, blood pressure 113/57. HEENT examination unremarkable. Conjunctivae pink. Sclerae icteric. Oral cavity no lesions. NECK: No JVD or lymph node enlargement. CHEST: Clear to auscultation. HEART: Regular rate and rhythm. ABDOMEN: Soft. There was mild diffuse tenderness throughout the abdomen in the right upper quadrant area, but the rest of the abdomen was tender. No fluid thrill noted. EXTREMITIES: No pedal edema. NEUROLOGIC: She is alert, oriented to name and place. LABS: Labs done today show WBC 6.0, hemoglobin down to 6.9, platelets 214. T-bilirubin is 6.3, AST 51, ALT 60, alkaline phosphatase 320. IMPRESSION: 1. Low-grade fever and diffuse abdominal pain right upper quadrant area. Possible acute cholecystitis. Dr. Bernard is following the patient closely. At present he is recommending conservative approach with IV antibiotics. The patient is receiving Levaquin, but will add Flagyl to the regimen. 2. Anemia with drop in hemoglobin. Clinically no evidence of active bleeding. Most likely anemia is multifactorial in etiology secondary to chronic liver disease. 3. Elevated liver function tests and jaundice consistent with acute alcoholic hepatitis possible alcoholic cirrhosis of the liver. 4. Lactic acidosis, resolving. 5. History of vaginal bleeding. RECOMMENDATIONS: 1. Continue with Levaquin. 2. Will add Flagyl 500 mg q.8 hours. 3. Monitor LFTs closely. 4. Agree with one unit of PRBC transfusion. 5. Will follow with you closely. Thank you for this consultation. MMODL / IJN: [id number] /
[2020-01-09] MEDS ORDERED: POTASSIUM CHLORIDE ER 20 MEQ TAB.ER PO STA (19:28)
[2020-01-09] MEDS: ONDANSETRON 4 MG/2 ML VIAL IVP PRN (21:29)
[2020-01-09] MEDS: LEVOFLOXACIN 500MG-D5W PMX 500 MG in DEXTROSE/WATER 1 100ML.BAG IVPB SCH (22:34)
[2020-01-10] MEDS: KETOROLAC 30 MG/ML 1 ML VIAL IVP PRN ×3 (04:21→16:19)
[2020-01-10] MEDS: ONDANSETRON 4 MG/2 ML VIAL IVP PRN ×2 (04:25→09:32)
[2020-01-10] MEDS: THIAMINE 100 MG TAB PO SCH ×2 (06:11→16:18)
[2020-01-10 08:21] LABS: INR 1.7 (<1.2); Prothrombin Time 16.6 sec (9.0-12.0)
[2020-01-10 08:27] LABS: Anisocytosis Moderate; Basophils % (A) 0 %; Eosinophils # (A) 0.1 k/uL (0-0.7); Eosinophils % (A) 2 %; HCT 26.9 % (34.0-46.0); Hypochromasia Marked; Lymphocytes # (A) 0.5 k/uL (1.0-4.8); Lymphocytes % (A) 7 %; MCHC 31.6 g/dL (31.0-37.0); MCV 98.2 fL (80.0-100.0); Macrocytosis Moderate; Mean Platelet Volume 9.7; Monocytes # (A) 0.6 k/uL (0-1.0); Monocytes % (A) 9 %; Neutrophils # (A) 5.5 k/uL (1.3-7.7); Neutrophils % (A) 80 %; Platelet Count 174 k/uL (150-450); RBC 2.74 m/uL (3.80-5.40); RDW 20.2 % (11.5-15.5); WBC 6.9 k/uL (3.8-10.6)
[2020-01-10 08:33] LABS: HGB 8.5 gm/dL (11.4-16.0)
[2020-01-10 08:34] LABS: ALT 13 U/L (4-34); AST 43 U/L (14-36); African American GFR (CKD) >90 (>60 ml/min/1.73 sqM); Albumin 1.9 g/dL (3.5-5.0); Alkaline Phosphatase 276 U/L (38-126); Anion Gap 7 mmol/L; Blood Urea Nitrogen <2 mg/dL (7-17); Calcium 7.8 mg/dL (8.4-10.2); Carbon Dioxide 22 mmol/L (22-30); Chloride 105 mmol/L (98-107); Glucose 64 mg/dL (74-99); Non-African American GFR(CKD) >90 (>60 ml/min/1.73 sqM); Potassium 3.7 mmol/L (3.5-5.1); Sodium 134 mmol/L (137-145); Total Bilirubin 6.8 mg/dL (0.2-1.3); Total Protein 4.8 g/dL (6.3-8.2)
[2020-01-10] MEDS: metroNIDAZOLE-NS PMX 500 MG in SALINE 1 100ML.BAG IVPB SCH (09:32)
[2020-01-10] MEDS: levETIRAcetam 500 MG TAB PO SCH ×2 (09:33→21:03)
[2020-01-10] MEDS: HEPARIN SODIUM,PORCINE 5,000 UNIT/ML 1 ML VIAL SQ SCH ×2 (09:33→21:03)
[2020-01-10] MEDS: FAMOTIDINE 20 MG TAB PO SCH ×2 (09:33→21:03)
[2020-01-10] MEDS: MULTIVITAMINS, THERA 1 EACH TAB PO SCH (09:33)
[2020-01-10] MEDS: METOPROLOL TARTRATE 12.5 MG TAB PO SCH ×2 (09:33→21:03)
--- NOTE | 2020-01-10 10:49 | P.PN ---
<Kennedi Houser - Last Filed: 01/10/20 10:47> Subjective Progress Note Date: 01/10/20 CHIEF COMPLAINT: Abdominal pain HISTORY OF PRESENT ILLNESS: Patient examined this morning at the bedside. Patient complains of pain 07/23 this morning. However, she is just about to receive pain medication. She states the pain is about the same as it was yesterday. Hemoglobin 8.5 this morning. Patient received 1 unit packed RBCs yesterday. Bilirubin 6.8. AST 43. ALT 13. Alkaline phosphatase 276. WBC 6.9. Blood pressure stable. HR low 100s. Afebrile this morning. PHYSICAL EXAM: VITAL SIGNS: Reviewed. GENERAL: Well-developed in no acute distress. HEENT: No sclera icterus. Extraocular movements grossly intact. Moist buccal mucosa. Head is atraumatic, normocephalic. ABDOMEN: Soft. Nondistended. Tenderness to epigastric region and right upper quadrant. NEUROLOGIC: Alert and oriented. Cranial nerves II through XII grossly intact. ASSESSMENT: 1. Abdominal pain, possible alcohol-induced gastritis 2. History of alcohol abuse PLAN: -Continue diet as tolerated -Pain control -Dr. Bernard will re-evaluate patient today. Further recommendations pending. Nurse practitioner note has been reviewed by physician. Signing provider agrees with the documented findings, assessment, and plan of care. Objective - Vital Signs Vital signs: Vital Signs Temp 97.9 F 01/10/20 08:30 Pulse 100 01/10/20 08:30 Resp 16 01/10/20 08:30 BP 100/63 01/10/20 08:30 Pulse Ox 98 01/10/20 08:30 Intake & Output 01/09/20 01/10/20 01/10/20 18:59 06:59 18:59 Intake Total 1574 310 Output Total 200 Balance 1574 110 Weight 84.5 kg Intake: Oral 1574 Blood Product 0 310 Rc As-3 Unit 0 310 [id number] Output: Urine 200 Other: Voiding Method Bedside Commode # Voids 4 2 # Bowel Movements 1 1 - Labs CBC & Chem 7: 01/10/20 06:39 01/10/20 06:39 Labs: Abnormal Lab Results - Last 24 Hours (Table) 01/09/20 01/10/20 01/10/20 Range/Units 10:37 06:39 06:39 RBC 2.74 L (3.80-5.40) m/uL Hgb 8.5 L D (11.4-16.0) gm/dL Hct 26.9 L (34.0-46.0) % RDW 20.2 H (11.5-15.5) % Lymphocytes # 0.5 L (1.0-4.8) k/uL PT 16.6 H (9.0-12.0) sec INR 1.7 H (<1.2) Sodium (137-145) mmol/L BUN (7-17) mg/dL Creatinine (0.52-1.04) mg/dL Glucose (74-99) mg/dL Calcium (8.4-10.2) mg/dL Total Bilirubin (0.2-1.3) mg/dL AST (14-36) U/L Alkaline Phosphatase (38-126) U/L Total Protein (6.3-8.2) g/dL Albumin (3.5-5.0) g/dL Crossmatch See Detail 01/10/20 Range/Units 06:39 RBC (3.80-5.40) m/uL Hgb (11.4-16.0) gm/dL Hct (34.0-46.0) % RDW (11.5-15.5) % Lymphocytes # (1.0-4.8) k/uL PT (9.0-12.0) sec INR (<1.2) Sodium 134 L (137-145) mmol/L BUN <2 L (7-17) mg/dL Creatinine 0.34 L (0.52-1.04) mg/dL Glucose 64 L (74-99) mg/dL Calcium 7.8 L (8.4-10.2) mg/dL Total Bilirubin 6.8 H (0.2-1.3) mg/dL AST 43 H (14-36) U/L Alkaline Phosphatase 276 H (38-126) U/L Total Protein 4.8 L (6.3-8.2) g/dL Albumin 1.9 L (3.5-5.0) g/dL Crossmatch Microbiology - Last 24 Hours (Table) 01/08/20 13:00 Blood Culture - Preliminary Blood No Growth after 24 hours <Kiko Bernard - Last Filed: 01/10/20 11:48> Subjective As above. Slightly more alert than yesterday evening. Labs noted. INR 1.7. Still complaining of left upper quadrant and right upper quadrant discomfort. Tolerating diet. Continue antibiotics. Will follow Objective - Vital Signs Vital signs: Vital Signs Temp 98.0 F 01/10/20 11:07 Pulse 101 H 01/10/20 11:07 Resp 16 01/10/20 11:07 BP 100/56 01/10/20 11:07 Pulse Ox 97 01/10/20 11:07 Intake & Output 01/09/20 01/10/20 01/10/20 18:59 06:59 18:59 Intake Total 1574 310 Output Total 200 Balance 1574 110 Weight 84.5 kg Intake: Oral 1574 Blood Product 0 310 Rc As-3 Unit 0 310 [id number] Output: Urine 200 Other: Voiding Method Bedside Commode # Voids 4 2 1 # Bowel Movements 1 1 1 - Labs CBC & Chem 7: 01/10/20 06:39 01/10/20 06:39 Labs: Abnormal Lab Results - Last 24 Hours (Table) 01/09/20 01/10/20 01/10/20 Range/Units 10:37 06:39 06:39 RBC 2.74 L (3.80-5.40) m/uL Hgb 8.5 L D (11.4-16.0) gm/dL Hct 26.9 L (34.0-46.0) % RDW 20.2 H (11.5-15.5) % Lymphocytes # 0.5 L (1.0-4.8) k/uL PT 16.6 H (9.0-12.0) sec INR 1.7 H (<1.2) Sodium (137-145) mmol/L BUN (7-17) mg/dL Creatinine (0.52-1.04) mg/dL Glucose (74-99) mg/dL Calcium (8.4-10.2) mg/dL Total Bilirubin (0.2-1.3) mg/dL AST (14-36) U/L Alkaline Phosphatase (38-126) U/L Total Protein (6.3-8.2) g/dL Albumin (3.5-5.0) g/dL Crossmatch See Detail 01/10/20 Range/Units 06:39 RBC (3.80-5.40) m/uL Hgb (11.4-16.0) gm/dL Hct (34.0-46.0) % RDW (11.5-15.5) % Lymphocytes # (1.0-4.8) k/uL PT (9.0-12.0) sec INR (<1.2) Sodium 134 L (137-145) mmol/L BUN <2 L (7-17) mg/dL Creatinine 0.34 L (0.52-1.04) mg/dL Glucose 64 L (74-99) mg/dL Calcium 7.8 L (8.4-10.2) mg/dL Total Bilirubin 6.8 H (0.2-1.3) mg/dL AST 43 H (14-36) U/L Alkaline Phosphatase 276 H (38-126) U/L Total Protein 4.8 L (6.3-8.2) g/dL Albumin 1.9 L (3.5-5.0) g/dL Crossmatch Microbiology - Last 24 Hours (Table) 01/08/20 13:00 Blood Culture - Preliminary Blood No Growth after 24 hours
--- NOTE | 2020-01-10 15:14 | P.PN ---
Subjective Progress Note Date: 01/10/20 Principal diagnosis: History of chronic alcohol abuse with likely acute alcoholic hepatitis On 01/09/2020 patient seen in follow-up on selective care unit, she is resting in bed, her leg is hanging off the side of the bed, she seen somnolent, but opens eyes to verbal stimulation, she has a patient safety tech at the bedside, has intermittent confusion. No signs of any respiratory distress, room air pulse ox is 96%, hemodynamically patient is stable, fever this afternoon, with a temp of 100.0F. Patient is or nonlabored, lung sounds are clear, diminished at the bases. Today's labs have been reviewed, showing with little, 6.0, hemoglobin of 6.9, sodium of 133, the rest of the electrolytes were within normal limits, BUN of less than 2, creatinine is 0.34. Patient will receive a unit of packed red blood cells today. Patient did report some epigastric discomfort apparently had some nausea, no vomiting. Surgery and GI services are following. Patient is on lactulose, antibiotics, and a form of Levaquin, she is on CIWA protocol, she is receiving thiamine replacement On 01/10/2020 patient seen in follow-up on selective care unit, she is much more alert and oriented today, no signs of delirium tremens, she is answering questions appropriately, she states she does not want to go to rehab for her chronic alcoholism, he prefers to go home with her parents. Appears to be in no acute distress, no signs of any respiratory distress, room air pulse ox is 97%, afebrile, hemodynamically stable, still slightly tachycardic, with a rate of 101 BPM, yesterday patient received a unit of blood for hemoglobin of 6.9, no obvious signs of bleeding, today's hemoglobin is 8.5, platelet count is 174, white count is normal at 6.9, INR is 1.7, serum sodium is 134, the rest of the electrolytes were within normal limits, BUN was less than 2, and creatinine was 0.34, liver enzymes are improving, bilirubin is 6.8, patient remains on oral metoprolol, antibiotics in the form of Levaquin and Flagyl, he is receiving lactulose. Blood culture has shown no growth. Surgery is following, patient is still complaining of some abdominal pain, receiving pain medications. No acute issues overnight. Social work is following, patient may need placement for [facility] for chronic alcoholism, however patient refuses to speak to manager social work. Objective - Vital Signs Vital signs: Vital Signs Temp 98.0 F 01/10/20 11:07 Pulse 101 H 01/10/20 11:07 Resp 16 01/10/20 11:07 BP 100/56 01/10/20 11:07 Pulse Ox 97 01/10/20 11:07 Intake & Output 01/09/20 01/10/20 01/10/20 18:59 06:59 18:59 Intake Total 1574 310 Output Total 200 Balance 1574 110 Weight 84.5 kg 84.5 kg Intake: Oral 1574 Blood Product 0 310 Rc As-3 Unit 0 310 [id number] Output: Urine 200 Other: Voiding Method Bedside Commode # Voids 4 2 1 # Bowel Movements 1 1 1 - Exam GENERAL EXAM: Awake and alert, jaundiced 29-year-old white female, sitting in bed, with a patient safety tech at the bedside currently on room air with a pulse ox of 96% comfortable in no apparent distress. HEAD: Normocephalic/atraumatic. EYES: Normal reaction of pupils, equal size. Conjunctiva pink, sclera white. NOSE: Clear with pink turbinates. THROAT: No erythema or exudates. NECK: No masses, no JVD, no thyroid enlargement, no adenopathy. CHEST: No chest wall deformity. Symmetrical expansion. LUNGS: Equal air entry with no crackles, wheeze, rhonchi or dullness. CVS: Regular rate and rhythm, normal S1 and S2, no gallops, no murmurs, no rubs ABDOMEN: Soft, nontender. No hepatosplenomegaly, normal bowel sounds, no gu arding or rigidity. EXTREMITIES: No clubbing, no edema, no cyanosis, 2+ pulses and upper and lower e xtremities. MUSCULOSKELETAL: Muscle strength and tone normal. SPINE: No scoliosis or deformity SKIN: No rashes CENTRAL NERVOUS SYSTEM: Awake and alert, oriented 3, No focal deficits, tone is normal in all 4 extremities. - Labs CBC & Chem 7: 01/10/20 06:39 01/10/20 06:39 Labs: Abnormal Lab Results - Last 24 Hours (Table) 01/09/20 01/10/20 01/10/20 Range/Units 10:37 06:39 06:39 RBC 2.74 L (3.80-5.40) m/uL Hgb 8.5 L D (11.4-16.0) gm/dL Hct 26.9 L (34.0-46.0) % RDW 20.2 H (11.5-15.5) % Lymphocytes # 0.5 L (1.0-4.8) k/uL PT 16.6 H (9.0-12.0) sec INR 1.7 H (<1.2) Sodium (137-145) mmol/L BUN (7-17) mg/dL Creatinine (0.52-1.04) mg/dL Glucose (74-99) mg/dL Calcium (8.4-10.2) mg/dL Total Bilirubin (0.2-1.3) mg/dL AST (14-36) U/L Alkaline Phosphatase (38-126) U/L Total Protein (6.3-8.2) g/dL Albumin (3.5-5.0) g/dL Crossmatch See Detail 01/10/20 Range/Units 06:39 RBC (3.80-5.40) m/uL Hgb (11.4-16.0) gm/dL Hct (34.0-46.0) % RDW (11.5-15.5) % Lymphocytes # (1.0-4.8) k/uL PT (9.0-12.0) sec INR (<1.2) Sodium 134 L (137-145) mmol/L BUN <2 L (7-17) mg/dL Creatinine 0.34 L (0.52-1.04) mg/dL Glucose 64 L (74-99) mg/dL Calcium 7.8 L (8.4-10.2) mg/dL Total Bilirubin 6.8 H (0.2-1.3) mg/dL AST 43 H (14-36) U/L Alkaline Phosphatase 276 H (38-126) U/L Total Protein 4.8 L (6.3-8.2) g/dL Albumin 1.9 L (3.5-5.0) g/dL Crossmatch Microbiology - Last 24 Hours (Table) 01/08/20 13:00 Blood Culture - Preliminary Blood No Growth after 24 hours Assessment and Plan Plan: Assessment: #1. History of chronic alcohol abuse with likely acute alcoholic hepatitis #2. History of alcoholic liver disease with chronic alcohol abuse and probable acute alcohol withdrawal syndrome #3. Rule out delirium tremens #4. Seizure disorder could be induced by alcohol withdrawal syndrome #5. Sinus tachycardia, related to acute alcohol syndrome #6. Lactic acidosis, resolved #7. Anemia of chronic disease #8. Hyperbilirubinemia #9. 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 No fever or chills. No compressive shortness of breath or chest pain, from pulmonary perspective she can be considered for discharge possibly to rehab in view of her chronic alcoholism. Social work is following, the patient refuses to speak to them. Pulmonary/critical care services will sign off and follow on as-needed basis I performed a history & physical examination of the patient and discussed their management with my nurse practitioner, Cecille Rios. I reviewed the nurse practitioner's note and agree with the documented findings and plan of care. Lung sounds are positive for diminished breath sounds at the bases. The findings and the impression was discussed with the patient. I attest to the documentation by the nurse practitioner. Time with Patient: Less than 30
--- NOTE | 2020-01-10 15:42 | P.PN ---
Subjective Progress Note Date: 01/10/20 Principal diagnosis: 29-year-old female came in with complaints of abdominal pain prominently in the epigastric area burning sensation. Nonradiating abdominal pain and mild to mod erate severity her abdominal pain resolved. Patient is an alcoholic does drink alcohol daily basis does appear to have mild ascites clinically along with mildly elevated INR of 1.2. Patient drinks about a pint of alcohol every day patient last drink was yesterday morning patient is already having withdrawals patient is on alcohol withdrawal precautions. Patient denied any fever chills patient was having will nausea yesterday which resolved at this time. Patient is bit tachycardic with elevated lactic acid secondary to liver failure. Ammonia level is 23 liver enzymes are elevated along with the elevated bilirubin of 5.2 patient has low hemoglobin of 8.1 patient was recently treated for v aginal bleeding. 01/07/2020 Patient is still having significant withdrawals patient is still drowsy because of Ativan and not able to answer questions very well patient is comparing of abdominal pain which is crampy in nature the midabdomen ultrasound of the abdomen did show some thickening of the gallbladder but appears to be secondary to mild ascites she is having. Patient is being treated for cirrhosis and alcoholic hepatitis as well. Patient had a low-grade fever. Which is believed to be secondary to atelectasis rest of the workup is negative for sepsis. Patient remains tachycardic part of which is secondary to fever and part of which is secondary to alcohol withdrawal we'll use low-dose of metoprolol blood pressure is borderline. We'll also an beta-hCG unfortunately this was not obtained since her admission. 01/08/2020 Patient can use to have fever blood cultures will be obtained as well as obtain a computed tomography scan of the abdomen to rule out any intra-abdominal abs cesses possibilities that is contributing to her fever. Patient will be started on Unasyn patient didn't of drinking alcohol that she was able to hide in her room she still having withdrawals. Constitutional: Denied any fatigue denied any fever. Cardio vascular: denied any chest pain, palpitations Gastrointestinal as mentioned in HPI Pulmonary: Denied any shortness of breath cough Neurologic denied any new focal deficits All inpatient medications were reviewed and appropriate changes in these medications as dictated in the interval history and assessment and plan. 01/09/2020 Patient seen and evaluated in follow-up today with no acute overnight issues. Patient has been afebrile today. Hemoglobin this morning 6.9 and awaiting to receive 1 unit of PRBCs. Multiple consultations following. Patient is maintained on alcohol withdrawal protocol and does have a sitter at the bedside for safety. Patient states that she feels nauseated at times although is eating small amounts of meals. No reports of chest pain, shortness of breath, or palpitations. No reports of vomiting just intermittent nausea as mentioned previously. 01/10/2020 Patient is seen in follow-up today alert and oriented 3 and per nursing staff has not slept well overnight. Patient did receive a unit of PRBCs and current hemoglobin today is 8.5. IV fluids have been discontinued. Sodium today is 134 with a potassium of 3.7 and total bilirubin slightly elevated at 6.8. Multiple medical consultations following. Social work also consulted as patient will probably benefit from some form of alcohol rehab. Surgery following and recommending continued IV antibiotics along with close monitoring. Patient ramesh es any suicidal ideation at this time. Patient states she is still having some withdrawal symptoms although is slightly improved today. Patient continues to have some right and left upper quadrant pain and is currently maintained on pain medications. Patient continues to have intermittent nausea with some vomiting although is able to keep down chocolate ensure drinks with minimal food. Will repeat a.m. labs. Patient denies having any chest pain or shortness of breath. Patient is afebrile now for 24 hours. Objective - Vital Signs Vital signs: Vital Signs Temp 98.0 F 01/10/20 11:07 Pulse 101 H 01/10/20 11:07 Resp 16 01/10/20 11:07 BP 100/56 01/10/20 11:07 Pulse Ox 97 01/10/20 11:07 Intake & Output 01/09/20 01/10/20 01/10/20 18:59 06:59 18:59 Intake Total 1574 310 Output Total 200 Balance 1574 110 Weight 84.5 kg Intake: Oral 1574 Blood Product 0 310 Rc As-3 Unit 0 310 [id number] Output: Urine 200 Other: Voiding Method Bedside Commode # Voids 4 2 1 # Bowel Movements 1 1 1 - Exam GENERAL: Patient is awake, alert and oriented 3. Flat affect HEENT: Pupils are round and equally reacting to light. EOMI. No scleral icterus. No conjunctival pallor. Normocephalic, atraumatic. No pharyngeal erythema. No thyromegaly. CARDIOVASCULAR: S1 and S2 present. No murmurs, rubs, or gallops. PULMONARY: Chest is clear to auscultation, no wheezing or crackles. ABDOMEN: Soft, nontender, nondistended, normoactive bowel sounds. No palpable organomegaly. Mild ascites MUSCULOSKELETAL: No joint swelling or deformity. EXTREMITIES: No cyanosis, clubbing, or pedal edema. NEUROLOGICAL: Gross neurological examination did not reveal any focal deficits. SKIN: No rashes. - Labs CBC & Chem 7: 01/10/20 06:39 01/10/20 06:39 Labs: Abnormal Lab Results - Last 24 Hours (Table) 01/09/20 01/10/20 01/10/20 Range/Units 10:37 06:39 06:39 RBC 2.74 L (3.80-5.40) m/uL Hgb 8.5 L D (11.4-16.0) gm/dL Hct 26.9 L (34.0-46.0) % RDW 20.2 H (11.5-15.5) % Lymphocytes # 0.5 L (1.0-4.8) k/uL PT 16.6 H (9.0-12.0) sec INR 1.7 H (<1.2) Sodium (137-145) mmol/L BUN (7-17) mg/dL Creatinine (0.52-1.04) mg/dL Glucose (74-99) mg/dL Calcium (8.4-10.2) mg/dL Total Bilirubin (0.2-1.3) mg/dL AST (14-36) U/L Alkaline Phosphatase (38-126) U/L Total Protein (6.3-8.2) g/dL Albumin (3.5-5.0) g/dL Crossmatch See Detail 01/10/20 Range/Units 06:39 RBC (3.80-5.40) m/uL Hgb (11.4-16.0) gm/dL Hct (34.0-46.0) % RDW (11.5-15.5) % Lymphocytes # (1.0-4.8) k/uL PT (9.0-12.0) sec INR (<1.2) Sodium 134 L (137-145) mmol/L BUN <2 L (7-17) mg/dL Creatinine 0.34 L (0.52-1.04) mg/dL Glucose 64 L (74-99) mg/dL Calcium 7.8 L (8.4-10.2) mg/dL Total Bilirubin 6.8 H (0.2-1.3) mg/dL AST 43 H (14-36) U/L Alkaline Phosphatase 276 H (38-126) U/L Total Protein 4.8 L (6.3-8.2) g/dL Albumin 1.9 L (3.5-5.0) g/dL Crossmatch Microbiology - Last 24 Hours (Table) 01/08/20 13:00 Blood Culture - Preliminary Blood No Growth after 24 hours Assessment and Plan Assessment: -Alcohol withdrawal, delirium tremens patient is on Ativan CIWA protocol alcohol cessation counseling was provided. Withdrawal slightly improving from yesterday. -Possible sepsis source of infection is unknown Levaquin will be started although workup is only significant for some atelectasis on the chest x-ray patient will obtain a computed tomography scan of the abdomen to rule out any intra-abdominal abscess although I cannot completely rule out spontaneous bacterial peritonitis as source of fever and infection, blood cultures thus far remain negative, patient remains on Levaquin with Flagyl added -Abdominal pain probably secondary to alcoholic gastritis patient is on IV Pepcid with improved symptoms which will be continued. I cannot rule out SBP -Mild acquired lefty secondary to possible cirrhosis -Acute alcoholic hepatitis with possibly of cirrhosis, patient does have mild ascites -Hyponatremia probably hypervolemic hyponatremia , proving -ANEMIA APPEARS TO BE CHRONIC NO ACUTE GI BLEED OR VAGINAL BLEED AND ANEMIA IS PROBABLY MULTIFACTORIAL INCLUDING IRON DEFICIENCY AND SECONDARY TO ALCOHOL abuse or liver disease. -Tachycardia secondary to alcohol withdrawal will use a beta corine if needed as clonidine is controlled the blood pressure significantly patient blood pressure is already low. -Hypokalemia improved -Lactic acidosis secondary to liver failure continue with IV fluids at this time, improved -Obstructive jaundice secondary to either alcoholic hepatitis or cirrhosis -DVT prophylaxis with subcutaneous heparin
[2020-01-10] MEDS: metroNIDAZOLE 500 MG TAB PO SCH (16:18)
[2020-01-10] MEDS: LORazepam 2 MG/ML INJ IV PRN ×2 (17:43→21:16)
--- NOTE | 2020-01-10 20:51 | P.PN ---
Subjective Progress Note Date: 01/10/20 Principal diagnosis: Normocytic anemia, elevated liver enzymes, alcoholic hepatitis The patient seen lying in bed denying any acute complaints at this time. No nausea or vomiting. Tolerating diet. Objective - Vital Signs Vital signs: Vital Signs Temp 98.0 F 01/10/20 11:07 Pulse 101 H 01/10/20 11:07 Resp 16 01/10/20 11:07 BP 100/56 01/10/20 11:07 Pulse Ox 97 01/10/20 11:07 Intake & Output 01/09/20 01/10/20 01/10/20 18:59 06:59 18:59 Intake Total 1574 310 Output Total 200 Balance 1574 110 Weight 84.5 kg Intake: Oral 1574 Blood Product 0 310 Rc As-3 Unit 0 310 [id number] Output: Urine 200 Other: Voiding Method Bedside Commode # Voids 4 2 1 # Bowel Movements 1 1 1 - Exam On physical examination, patient appears comfortable in no apparent distress. HEAD: Normocephalic, atraumatic. EYES: No scleral icterus. No conjunctival injection. MOUTH: No lesions, tongue midline. NECK: Trachea midline, no gross abnormalities. ABDOMEN: Soft, obese. Bowel sounds are positive. No organomegaly. No guarding or rigidity. EXTREMITIES: No pedal edema. SKIN: No rashes, no jaundice. NEUROLOGIC: Alert and oriented x3, no asterixis noted. No focal deficits. - Labs CBC & Chem 7: 01/10/20 06:39 01/10/20 06:39 Labs: Abnormal Lab Results - Last 24 Hours (Table) 01/09/20 01/10/20 01/10/20 Range/Units 10:37 06:39 06:39 RBC 2.74 L (3.80-5.40) m/uL Hgb 8.5 L D (11.4-16.0) gm/dL Hct 26.9 L (34.0-46.0) % RDW 20.2 H (11.5-15.5) % Lymphocytes # 0.5 L (1.0-4.8) k/uL PT 16.6 H (9.0-12.0) sec INR 1.7 H (<1.2) Sodium (137-145) mmol/L BUN (7-17) mg/dL Creatinine (0.52-1.04) mg/dL Glucose (74-99) mg/dL Calcium (8.4-10.2) mg/dL Total Bilirubin (0.2-1.3) mg/dL AST (14-36) U/L Alkaline Phosphatase (38-126) U/L Total Protein (6.3-8.2) g/dL Albumin (3.5-5.0) g/dL Crossmatch See Detail 01/10/20 Range/Units 06:39 RBC (3.80-5.40) m/uL Hgb (11.4-16.0) gm/dL Hct (34.0-46.0) % RDW (11.5-15.5) % Lymphocytes # (1.0-4.8) k/uL PT (9.0-12.0) sec INR (<1.2) Sodium 134 L (137-145) mmol/L BUN <2 L (7-17) mg/dL Creatinine 0.34 L (0.52-1.04) mg/dL Glucose 64 L (74-99) mg/dL Calcium 7.8 L (8.4-10.2) mg/dL Total Bilirubin 6.8 H (0.2-1.3) mg/dL AST 43 H (14-36) U/L Alkaline Phosphatase 276 H (38-126) U/L Total Protein 4.8 L (6.3-8.2) g/dL Albumin 1.9 L (3.5-5.0) g/dL Crossmatch Microbiology - Last 24 Hours (Table) 01/08/20 13:00 Blood Culture - Preliminary Blood No Growth after 24 hours Assessment and Plan (1) Elevated liver enzymes Narrative/Plan: 29-year-old female with a history of alcohol abuse with elevated liver enzymes, likely multifactorial. Liver enzymes secondary to alcohol abuse, suspicion for acute cholecystitis, also for a component of acute alcohol hepatitis. Currently being treated conservatively and with antibiotic therapy. Current Visit: Yes Status: Acute Code(s): R74.8 - ABNORMAL LEVELS OF OTHER SERUM ENZYMES SNOMED Code(s): 004282259 (2) Alcoholic hepatitis Current Visit: No Status: Acute Code(s): K70.10 - ALCOHOLIC HEPATITIS WITHOUT ASCITES SNOMED Code(s): 359542329 (3) Normocytic anemia Current Visit: Yes Status: Acute Code(s): D64.9 - ANEMIA, UNSPECIFIED SNOMED Code(s): 725840191 Plan: Supportive care Okay for diet Continue to monitor hemoglobin and hematocrit and transfuse as needed Continue to monitor BMP, LFTs Alcohol abstinence Continue to switch her antibiotic therapy Appreciate recommendations from surgical service Thank you for allowing us to care the patient we will continue to follow
[2020-01-10] MEDS: LEVOFLOXACIN 500 MG TAB PO SCH (21:03)
[2020-01-11] MEDS: metroNIDAZOLE 500 MG TAB PO SCH ×2 (00:11→08:51)
--- NOTE | 2020-01-11 00:40 | P.CONS ---
History of Present Illness - Reason for Consult Consult date: 01/10/20 Fever Requesting physician: Sharda Enrique - Chief Complaint abd pain x 1 week - History of Present Illness Patient is a 29-year-old female with a past medical significant for alcoholic liver disease and previous admission for acute alcohol hepatitis presented to the [facility] with abdominal pain and distention that has been going on for about 4 to 5 days in the [facility] patient was noticed to have severe tachycardia hypertension elevated liver enzymes for the patient will be transferred to [facility] for further m anagement patient on presentation to this facility has been afebrile she did have low-grade fever of 100.6 on 07 January and has been Fahrenheit yesterday afternoon that has prompted this infectious disease consultation patient has been complaining of pain in the mostly epigastric area dull aching to sharp 0.7- 10 out of 10 no radiation has been nauseated but no vomiting and denies any diarrhea or constipation denies any chest pain or shortness of breath or cough and no urinary symptoms patient did have a ultrasound of the abdomen concern for cholecystitis gallbladder wall thickening and pericholecystic fluid for the patient has been evaluated by general surgery not recommending any surgical inte rvention patient did have a CT of abdominal pelvis which did shows evidence of hepatosplenomegaly and ascites improved region within the right hemicolon and fairly nonspecific colitis patient did have a Rocephin and penicillin allergy she is currently being treated with a Levaquin infectious disease was consulted for further management of antibiotic and concern for his fever. Her blood pressure numbers are negative so far, patient was not a good historian Review of Systems Positive point has been mentioned in HPI rest of the systems are negative Past Medical History Past Medical History: Liver Disease, Pneumonia, Seizure Disorder Additional Past Medical History / Comment(s): Past obstetrical history significant for 1 section for failure to progress. ETOH abuse. Bronchitis, Sepsis (2013) History of Any Multi-Drug Resistant Organisms: None Reported Past Surgical History: Section, Orthopedic Surgery Additional Past Surgical History / Comment(s): 2 rt foot sx in past Past Anesthesia/Blood Transfusion Reactions: Motion Sickness Past Psychological History: ADD/ADHD, Anxiety Smoking Status: Former smoker Past Alcohol Use History: Abuse, Daily Additional Past Alcohol Use History / Comment(s): She states she drinks 2 gallon of vodka in 2 days. She states she has to have a drink in the morning when she wakes up to control her tremors and nausea. She does state that she has been to rehab in the past and it does not work for her. Past Drug Use History: None Reported - Past Family History Father Family Medical History: No Reported History Mother Family Medical History: No Reported History Medications and Allergies Home Medications Medication Instructions Recorded Confirmed Type Dextroamphetamine/Amphetamine 20 mg PO TID PRN 06/17/19 01/06/20 History [Adderall] levETIRAcetam [Keppra] 1,000 mg PO BID 06/17/19 01/06/20 History Ondansetron HCl [Zofran] 8 mg PO Q8HR PRN 11/28/19 01/06/20 History Ascorbic Acid [Vitamin C] 1,000 mg PO DAILY 01/06/20 01/06/20 History Potassium Gluconate 99 mg PO DAILY 01/06/20 01/06/20 History traZODone HCL [Desyrel] 100 mg PO HS PRN 01/06/20 01/06/20 History Allergies Allergy/AdvReac Type Severity Reaction Status Date / Time ceftriaxone Allergy Anaphylaxis Verified 01/06/20 09:33 Penicillins Allergy Rash/Hives Verified 01/06/20 09:33 Physical Exam Vitals: Vital Signs Temp Pulse Resp BP Pulse Ox 01/10/20 15:09 98.5 F 74 16 90/56 100 01/10/20 11:07 98.0 F 101 H 16 100/56 97 01/10/20 08:30 97.9 F 100 16 100/63 98 01/10/20 04:00 98.7 F 102 H 16 97/52 97 01/10/20 00:00 98 F 101 H 16 91/56 97 Intake and Output 01/10/20 01/10/20 01/10/20 06:59 14:59 22:59 Output Total 200 350 Balance -200 -350 Output: Urine 200 350 Other: Voiding Method Bedside Commode # Voids 2 1 1 # Bowel Movements 1 1 Weight 84.5 kg 84.5 kg GENERAL DESCRIPTION: Middle-aged female lying in bed, no distress. No tachypnea or accessory muscle of respiration use. HEENT: scleral icterus +. Oral mucous membrane is dry. NECK: Trachea central, no thyromegaly. LUNGS: Unlabored breathing. Clear to auscultation anteriorly. No wheeze or crackle. HEART: S1, S2, regular rate and rhythm. ABDOMEN: Soft, mildly distended and epigastric tenderness , hepatomegaly EXTREMITIES: 1+ edema of feet. SKIN: No rash, no masses palpable. NEUROLOGICAL: The patient is awake, alert, oriented x3, mood and affect normal. Results CBC & Chem 7: 01/10/20 06:39 01/10/20 06:39 Labs: Abnormal Lab Results - Last 24 Hours (Table) 01/10/20 01/10/20 01/10/20 Range/Units 06:39 06:39 06:39 RBC 2.74 L (3.80-5.40) m/uL Hgb 8.5 L D (11.4-16.0) gm/dL Hct 26.9 L (34.0-46.0) % RDW 20.2 H (11.5-15.5) % Lymphocytes # 0.5 L (1.0-4.8) k/uL PT 16.6 H (9.0-12.0) sec INR 1.7 H (<1.2) Sodium 134 L (137-145) mmol/L BUN <2 L (7-17) mg/dL Creatinine 0.34 L (0.52-1.04) mg/dL Glucose 64 L (74-99) mg/dL Calcium 7.8 L (8.4-10.2) mg/dL Total Bilirubin 6.8 H (0.2-1.3) mg/dL AST 43 H (14-36) U/L Alkaline Phosphatase 276 H (38-126) U/L Total Protein 4.8 L (6.3-8.2) g/dL Albumin 1.9 L (3.5-5.0) g/dL Microbiology - Last 24 Hours (Table) 01/08/20 13:00 Blood Culture - Preliminary Blood No Growth after 48 hours Assessment and Plan Assessment: 1-patient have with her low-grade fever more likely due to her underlying alcoholic hepatitis no ultrasound has been suspicious for cholecystitis however CT abdominal pelvis was not suggestive of cholecystitis and CT abdominal pelvis did not show any other abdominal pathology,. Chest is negative for any consolidation urine has been negative and white count has been normal 2-patient with penicillin and cephalosporin allergy that would limit the Number of antibiotics safe to use. (1) Fever Current Visit: Yes Status: Acute Code(s): R50.9 - FEVER, UNSPECIFIED SNOMED Code(s): 686696892 Plan: 1-Levaquin 500 mg daily to continue while waiting for the condition to stabilize and culture to finalize We will follow on clinical condition and cultures to further adjust medication if needed Thank you for this consultation we will follow the patient along with you Time with Patient: Greater than 30
[2020-01-11] MEDS: KETOROLAC 30 MG/ML 1 ML VIAL IVP PRN ×2 (00:49→08:51)
[2020-01-11] MEDS: LORazepam 2 MG/ML INJ IV PRN ×5 (04:47→20:04)
[2020-01-11] MEDS: THIAMINE 100 MG TAB PO SCH ×2 (06:32→17:44)
[2020-01-11 07:31] LABS: Anisocytosis Moderate; Basophils % (A) 0 %; Eosinophils # (A) 0.1 k/uL (0-0.7); Eosinophils % (A) 1 %; HCT 27.3 % (34.0-46.0); HGB 8.8 gm/dL (11.4-16.0); Hypochromasia Moderate; Lymphocytes # (A) 0.7 k/uL (1.0-4.8); Lymphocytes % (A) 9 %; MCH 32.1 pg (25.0-35.0); MCHC 32.3 g/dL (31.0-37.0); MCV 99.2 fL (80.0-100.0); Macrocytosis Moderate; Mean Platelet Volume 9.3; Monocytes # (A) 0.7 k/uL (0-1.0); Monocytes % (A) 8 %; Neutrophils # (A) 6.4 k/uL (1.3-7.7); Neutrophils % (A) 80 %; Platelet Count 189 k/uL (150-450); Poikilocytosis Slight; RBC 2.75 m/uL (3.80-5.40); RDW 20.7 % (11.5-15.5)
[2020-01-11 07:39] LABS: INR 1.8 (<1.2); Prothrombin Time 17.4 sec (9.0-12.0)
[2020-01-11 08:04] LABS: ALT 12 U/L (4-34); AST 38 U/L (14-36); African American GFR (CKD) >90 (>60 ml/min/1.73 sqM); Albumin 1.9 g/dL (3.5-5.0); Alkaline Phosphatase 257 U/L (38-126); Anion Gap 7 mmol/L; Blood Urea Nitrogen <2 mg/dL (7-17); Calcium 7.8 mg/dL (8.4-10.2); Carbon Dioxide 23 mmol/L (22-30); Chloride 105 mmol/L (98-107); Glucose 71 mg/dL (74-99); Non-African American GFR(CKD) >90 (>60 ml/min/1.73 sqM); Potassium 3.7 mmol/L (3.5-5.1); Sodium 135 mmol/L (137-145); Total Bilirubin 7.2 mg/dL (0.2-1.3); Total Protein 4.8 g/dL (6.3-8.2)
[2020-01-11] MEDS: METOPROLOL TARTRATE 12.5 MG TAB PO SCH ×2 (08:51→20:02)
[2020-01-11] MEDS: MULTIVITAMINS, THERA 1 EACH TAB PO SCH (08:51)
[2020-01-11] MEDS: levETIRAcetam 500 MG TAB PO SCH ×2 (08:51→20:03)
[2020-01-11] MEDS: HEPARIN SODIUM,PORCINE 5,000 UNIT/ML 1 ML VIAL SQ SCH ×2 (08:51→20:03)
[2020-01-11] MEDS: FAMOTIDINE 20 MG TAB PO SCH ×2 (08:51→20:03)
--- NOTE | 2020-01-11 10:50 | P.PN ---
Subjective Progress Note Date: 01/11/20 Principal diagnosis: Abdominal pain Patient feels better today. She is much more alert at this time. INR is 1.8. Pain is bilateral upper quadrants and periumbilical today. Tolerating diet although appetite diminished. States her pain is coming and going at this point. Objective - Vital Signs Vital signs: Vital Signs Temp 98.1 F 01/11/20 08:00 Pulse 109 H 01/11/20 08:00 Resp 16 01/11/20 08:00 BP 91/54 01/11/20 08:00 Pulse Ox 95 01/11/20 08:00 Intake & Output 01/10/20 01/11/20 01/11/20 18:59 06:59 18:59 Intake Total 480 240 Output Total 650 Balance -170 240 Weight 84.5 kg 83 kg Intake: Oral 480 240 Output: Urine 650 Other: Voiding Method Bedpan Bedside Commode Bedpan # Voids 1 # Bowel Movements 1 - Exam Abdomen: Soft, mild upper abdominal tenderness, no rebound or guarding - Labs CBC & Chem 7: 01/11/20 07:05 01/11/20 07:05 Labs: Abnormal Lab Results - Last 24 Hours (Table) 01/11/20 01/11/20 01/11/20 Range/Units 07:05 07:05 07:05 RBC 2.75 L (3.80-5.40) m/uL Hgb 8.8 L (11.4-16.0) gm/dL Hct 27.3 L (34.0-46.0) % RDW 20.7 H (11.5-15.5) % Lymphocytes # 0.7 L (1.0-4.8) k/uL PT 17.4 H (9.0-12.0) sec INR 1.8 H (<1.2) Sodium 135 L (137-145) mmol/L BUN <2 L (7-17) mg/dL Creatinine 0.41 L (0.52-1.04) mg/dL Glucose 71 L (74-99) mg/dL Calcium 7.8 L (8.4-10.2) mg/dL Total Bilirubin 7.2 H (0.2-1.3) mg/dL AST 38 H (14-36) U/L Alkaline Phosphatase 257 H (38-126) U/L Total Protein 4.8 L (6.3-8.2) g/dL Albumin 1.9 L (3.5-5.0) g/dL Microbiology - Last 24 Hours (Table) 01/08/20 13:00 Blood Culture - Preliminary Blood No Growth after 48 hours Assessment and Plan (1) Acalculous cholecystitis Narrative/Plan: Patient doing better. Continue low-fat diet. Monitor labs. Continue alcohol c essation. Current Visit: No Status: Acute Code(s): K81.9 - CHOLECYSTITIS, UNSPECIFIED SNOMED Code(s): 68580089
[2020-01-11] MEDS: traMADol 50 MG TAB PO SCH ×3 (12:33→20:04)
--- NOTE | 2020-01-11 13:01 | P.PN ---
Subjective 29-year-old female came in with complaints of abdominal pain prominently in the epigastric area burning sensation. Nonradiating abdominal pain and mild to moderate severity her abdominal pain resolved. Patient is an alcoholic does drink alcohol daily basis does appear to have mild ascites clinically along with mildly elevated INR of 1.2. Patient drinks about a pint of alcohol every day patient last drink was yesterday morning patient is already having withdrawals patient is on alcohol withdrawal precautions. Patient denied any fever chills patient was having will nausea yesterday which resolved at this time. Patient is bit tachycardic with elevated lactic acid secondary to liver failure. Ammonia level is 23 liver enzymes are elevated along with the elevated bilirubin of 5.2 patient has low hemoglobin of 8.1 patient was recently treated for vaginal bleeding. 01/07/2020 Patient is still having significant withdrawals patient is still drowsy because of Ativan and not able to answer questions very well patient is comparing of abd ominal pain which is crampy in nature the midabdomen ultrasound of the abdomen did show some thickening of the gallbladder but appears to be secondary to mild ascites she is having. Patient is being treated for cirrhosis and alcoholic hepatitis as well. Patient had a low-grade fever. Which is believed to be secondary to atelectasis rest of the workup is negative for sepsis. Patient remains tachycardic part of which is secondary to fever and part of which is secondary to alcohol withdrawal we'll use low-dose of metoprolol blood pressure is borderline. We'll also an beta-hCG unfortunately this was not obtained since her admission. 01/08/2020 Patient can use to have fever blood cultures will be obtained as well as obtain a computed tomography scan of the abdomen to rule out any intra-abdominal abscesses possibilities that is contributing to her fever. Patient will be started on Unasyn patient didn't of drinking alcohol that she was able to hide in her room she still having withdrawals. Constitutional: Denied any fatigue denied any fever. Cardio vascular: denied any chest pain, palpitations Gastrointestinal as mentioned in HPI Pulmonary: Denied any shortness of breath cough Neurologic denied any new focal deficits All inpatient medications were reviewed and appropriate changes in these medications as dictated in the interval history and assessment and plan. 01/09/2020 Patient seen and evaluated in follow-up today with no acute overnight issues. Patient has been afebrile today. Hemoglobin this morning 6.9 and awaiting to receive 1 unit of PRBCs. Multiple consultations following. Patient is maintained on alcohol withdrawal protocol and does have a sitter at the bedside for safety. Patient states that she feels nauseated at times although is eating small amounts of meals. No reports of chest pain, shortness of breath, or palpitations. No reports of vomiting just intermittent nausea as mentioned previously. 01/10/2020 Patient is seen in follow-up today alert and oriented 3 and per nursing staff has not slept well overnight. Patient did receive a unit of PRBCs and current hemoglobin today is 8.5. IV fluids have been discontinued. Sodium today is 134 with a potassium of 3.7 and total bilirubin slightly elevated at 6.8. Multiple medical consultations following. Social work also consulted as patient will probably benefit from some form of alcohol rehab. Surgery following and recommending continued IV antibiotics along with close monitoring. Patient denies any suicidal ideation at this time. Patient states she is still having some withdrawal symptoms although is slightly improved today. Patient continues to have some right and left upper quadrant pain and is currently maintained on pain medications. Patient continues to have intermittent nausea with some vomiting although is able to keep down chocolate ensure drinks with minimal claire d. Will repeat a.m. labs. Patient denies having any chest pain or shortness of breath. Patient is afebrile now for 24 hours. 01/11/2020 Patient is comparing of epigastric abdominal burning sensation as well as superpubic pain. Patient's fevers or believed secondary to alcoholic [place] and no evidence of diuretic late is because of which metronidazole will be discontinued and levofloxacin although will be continued all the cultures so far are negative. INR is 1.9 patient is quite weak may require subacute rehabilitation because of which I'm unable to discharge the patient today because of her epigastric abdominal tenderness and changing the pain medications from Toradol 2 tramadol Constitutional: Denied any fatigue denied any fever. Cardio vascular: denied any chest pain, palpitations Gastrointestinal denied any nausea vomiting or melena. As mentioned above Pulmonary: Denied any shortness of breath cough Neurologic denied any new focal deficits All inpatient medications were reviewed and appropriate changes in these medications as dictated in the interval history and assessment and plan. Objective - Vital Signs Vital signs: Vital Signs Temp 98.1 F 01/11/20 08:00 Pulse 109 H 01/11/20 08:00 Resp 16 01/11/20 08:00 BP 91/54 01/11/20 08:00 Pulse Ox 95 01/11/20 08:00 Intake & Output 01/10/20 01/11/20 01/11/20 18:59 06:59 18:59 Intake Total 480 240 Output Total 650 Balance -170 240 Weight 84.5 kg 83 kg Intake: Oral 480 240 Output: Urine 650 Other: Voiding Method Bedpan Bedside Commode Bedpan # Voids 1 # Bowel Movements 1 - Exam GENERAL: Patient is awake, alert and oriented 3. HEENT: Pupils are round and equally reacting to light. EOMI. No scleral icterus. No conjunctival pallor. Normocephalic, atraumatic. No pharyngeal erythema. No thyromegaly. CARDIOVASCULAR: S1 and S2 present. No murmurs, rubs, or gallops. PULMONARY: Chest is clear to auscultation, no wheezing or crackles. ABDOMEN: Soft, mild tenderness in the epigastric area, nondistended, normoactive bowel sounds. No palpable organomegaly. Mild ascites MUSCULOSKELETAL: No joint swelling or deformity. EXTREMITIES: No cyanosis, clubbing, or pedal edema. NEUROLOGICAL: Gross neurological examination did not reveal any focal deficits. SKIN: No rashes. - Labs CBC & Chem 7: 01/11/20 07:05 01/11/20 07:05 Labs: Abnormal Lab Results - Last 24 Hours (Table) 01/11/20 01/11/20 01/11/20 Range/Units 07:05 07:05 07:05 RBC 2.75 L (3.80-5.40) m/uL Hgb 8.8 L (11.4-16.0) gm/dL Hct 27.3 L (34.0-46.0) % RDW 20.7 H (11.5-15.5) % Lymphocytes # 0.7 L (1.0-4.8) k/uL PT 17.4 H (9.0-12.0) sec INR 1.8 H (<1.2) Sodium 135 L (137-145) mmol/L BUN <2 L (7-17) mg/dL Creatinine 0.41 L (0.52-1.04) mg/dL Glucose 71 L (74-99) mg/dL Calcium 7.8 L (8.4-10.2) mg/dL Total Bilirubin 7.2 H (0.2-1.3) mg/dL AST 38 H (14-36) U/L Alkaline Phosphatase 257 H (38-126) U/L Total Protein 4.8 L (6.3-8.2) g/dL Albumin 1.9 L (3.5-5.0) g/dL Microbiology - Last 24 Hours (Table) 01/08/20 13:00 Blood Culture - Preliminary Blood No Growth after 48 hours Assessment and Plan Plan: -Alcohol withdrawal, delirium tremens patient is on Ativan CIWA protocol patient doesn't have any withdrawals -Possible sepsis source of infection is unknown Levaquin , metronidazole will be discussed uterine there is no evidence of diabetes mellitus Levaquin although will be continued and patient was evaluated by infectious disease. -Abdominal pain probably secondary to alcoholic gastritis patient patient was switched to tramadol from Toradol because of epigastric abdominal pain -Mild acquired lefty secondary to possible cirrhosis -Acute alcoholic hepatitis with possibly of cirrhosis, patient does have mild ascites -Hyponatremia probably hypervolemic hyponatremia , "" -ANEMIA APPEARS TO BE CHRONIC NO ACUTE GI BLEED OR VAGINAL BLEED AND ANEMIA IS PROBABLY MULTIFACTORIAL INCLUDING IRON DEFICIENCY AND SECONDARY TO ALCOHOL abuse or liver disease. -Lactic acidosis secondary to liver failure continue with IV fluids at this time, improved -Obstructive jaundice secondary to either alcoholic hepatitis or cirrhosis Generalized weakness may require -DVT prophylaxis with subcutaneous heparin
[2020-01-11] MEDS ORDERED: MORPHINE SULFATE 4 MG/ML SYRINGE IVP ONE (13:38)
--- NOTE | 2020-01-11 15:25 | P.PN ---
Subjective Progress Note Date: 01/11/20 Principal diagnosis: History of chronic alcohol abuse with likely acute alcoholic hepatitis The patient is seen today in 01/11/2020 in follow-up on the selective care unit. She remains awake and alert in no acute distress. No delirium tremens noted. She is maintaining good O2 saturations in the 90s on room air. She's been afebrile. She is status post 1 unit of packed red blood cells this admission. Current hemoglobin 8.8. Platelet count 189. INR 1.8. AST 38. ALT 12. Sodium 135. Potassium 3.7. Creatinine 0.41. Objective - Vital Signs Vital signs: Vital Signs Temp 98.1 F 01/11/20 08:00 Pulse 109 H 01/11/20 08:00 Resp 16 01/11/20 08:00 BP 91/54 01/11/20 08:00 Pulse Ox 95 01/11/20 08:00 Intake & Output 01/10/20 01/11/20 01/11/20 18:59 06:59 18:59 Intake Total 480 240 Output Total 650 Balance -170 240 Weight 84.5 kg 83 kg Intake: Oral 480 240 Output: Urine 650 Other: Voiding Method Bedpan Bedside Commode Bedpan # Voids 1 3 # Bowel Movements 1 2 - Exam GENERAL EXAM: Awake and alert, jaundiced 29-year-old white female, sitting in bed, with a vehicle safety inspector at the bedside, currently on room air, comfortable in no apparent distress. HEAD: Normocephalic/atraumatic. EYES: Normal reaction of pupils, equal size. Conjunctiva pink, sclera white. NOSE: Clear with pink turbinates. THROAT: No erythema or exudates. NECK: No masses, no JVD, no thyroid enlargement, no adenopathy. CHEST: No chest wall deformity. Symmetrical expansion. LUNGS: Equal air entry with no crackles, wheeze, rhonchi or dullness. CVS: Regular rate and rhythm, normal S1 and S2, no gallops, no murmurs, no rubs ABDOMEN: Soft, nontender. No hepatosplenomegaly, normal bowel sounds, no guarding or rigidity. EXTREMITIES: No clubbing, no edema, no cyanosis, 2+ pulses and upper and lower extremities. MUSCULOSKELETAL: Muscle strength and tone normal. SPINE: No scoliosis or deformity SKIN: No rashes CENTRAL NERVOUS SYSTEM: Awake and alert, oriented 3, No focal deficits, tone is normal in all 4 extremities. - Labs CBC & Chem 7: 01/11/20 07:05 01/11/20 07:05 Labs: Abnormal Lab Results - Last 24 Hours (Table) 01/11/20 01/11/20 01/11/20 Range/Units 07:05 07:05 07:05 RBC 2.75 L (3.80-5.40) m/uL Hgb 8.8 L (11.4-16.0) gm/dL Hct 27.3 L (34.0-46.0) % RDW 20.7 H (11.5-15.5) % Lymphocytes # 0.7 L (1.0-4.8) k/uL PT 17.4 H (9.0-12.0) sec INR 1.8 H (<1.2) Sodium 135 L (137-145) mmol/L BUN <2 L (7-17) mg/dL Creatinine 0.41 L (0.52-1.04) mg/dL Glucose 71 L (74-99) mg/dL Calcium 7.8 L (8.4-10.2) mg/dL Total Bilirubin 7.2 H (0.2-1.3) mg/dL AST 38 H (14-36) U/L Alkaline Phosphatase 257 H (38-126) U/L Total Protein 4.8 L (6.3-8.2) g/dL Albumin 1.9 L (3.5-5.0) g/dL Microbiology - Last 24 Hours (Table) 01/08/20 13:00 Blood Culture - Preliminary Blood No Growth after 72 hours Assessment and Plan Assessment: #1. History of chronic alcohol abuse with likely acute alcoholic hepatitis #2. History of alcoholic liver disease with chronic alcohol abuse and probable acute alcohol withdrawal syndrome #3. Rule out delirium tremens #4. Seizure disorder could be induced by alcohol withdrawal syndrome #5. Sinus tachycardia, related to acute alcohol syndrome #6. Lactic acidosis, resolved #7. Anemia of chronic disease #8. Hyperbilirubinemia #9. 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 Vance Discharge planning is in place Patient is reluctant to go to rehab I, the cosigning physician, performed a history & physical examination of the patient. Lungs sounds are clear. Maintaining good O2 saturations in the 90s on room air. I discussed the assessment and plan of care with my nurse practitioner, Erika Edmondson. I attest to the above note as dictated by her.
[2020-01-11] MEDS: LEVOFLOXACIN 500 MG TAB PO SCH (20:03)
[2020-01-11] MEDS: ONDANSETRON 4 MG/2 ML VIAL IVP PRN (20:03)
--- NOTE | 2020-01-11 22:24 | P.PN ---
Subjective Progress Note Date: 01/11/20 Principal diagnosis: Normocytic anemia, elevated liver enzymes, alcoholic hepatitis The patient seen lying in bed, she is tolerating diet but is reporting some vague epigastric abdominal pain. No nausea or vomiting. She is asking for discharge home to be in her bed. Objective - Vital Signs Vital signs: Vital Signs Temp 98.1 F 01/11/20 08:00 Pulse 109 H 01/11/20 08:00 Resp 16 01/11/20 08:00 BP 91/54 01/11/20 08:00 Pulse Ox 95 01/11/20 08:00 Intake & Output 01/10/20 01/11/20 01/11/20 18:59 06:59 18:59 Intake Total 480 240 Output Total 650 Balance -170 240 Weight 84.5 kg 83 kg Intake: Oral 480 240 Output: Urine 650 Other: Voiding Method Bedpan Bedside Commode Bedpan # Voids 1 3 # Bowel Movements 1 2 - Exam On physical examination, patient appears comfortable in no apparent distress. HEAD: Normocephalic, atraumatic. EYES: No scleral icterus. No conjunctival injection. MOUTH: No lesions, tongue midline. NECK: Trachea midline, no gross abnormalities. ABDOMEN: Soft, obese. Bowel sounds are positive. No organomegaly. No guarding or rigidity. EXTREMITIES: No pedal edema. SKIN: No rashes, no jaundice. NEUROLOGIC: Alert and oriented x3, no asterixis noted. No focal deficits. - Labs CBC & Chem 7: 01/11/20 07:05 01/11/20 07:05 Labs: Abnormal Lab Results - Last 24 Hours (Table) 01/11/20 01/11/20 01/11/20 Range/Units 07:05 07:05 07:05 RBC 2.75 L (3.80-5.40) m/uL Hgb 8.8 L (11.4-16.0) gm/dL Hct 27.3 L (34.0-46.0) % RDW 20.7 H (11.5-15.5) % Lymphocytes # 0.7 L (1.0-4.8) k/uL PT 17.4 H (9.0-12.0) sec INR 1.8 H (<1.2) Sodium 135 L (137-145) mmol/L BUN <2 L (7-17) mg/dL Creatinine 0.41 L (0.52-1.04) mg/dL Glucose 71 L (74-99) mg/dL Calcium 7.8 L (8.4-10.2) mg/dL Total Bilirubin 7.2 H (0.2-1.3) mg/dL AST 38 H (14-36) U/L Alkaline Phosphatase 257 H (38-126) U/L Total Protein 4.8 L (6.3-8.2) g/dL Albumin 1.9 L (3.5-5.0) g/dL Microbiology - Last 24 Hours (Table) 01/08/20 13:00 Blood Culture - Preliminary Blood No Growth after 48 hours Assessment and Plan (1) Elevated liver enzymes Narrative/Plan: 29-year-old female with a history of alcohol abuse with elevated liver enzymes, likely multifactorial. Liver enzymes secondary to alcohol abuse, suspicion for acute cholecystitis, also for a component of acute alcohol hepatitis. Currently being treated conservatively and with antibiotic therapy. Current Visit: Yes Status: Acute Code(s): R74.8 - ABNORMAL LEVELS OF OTHER SERUM ENZYMES SNOMED Code(s): 417341126 (2) Alcoholic hepatitis Current Visit: No Status: Acute Code(s): K70.10 - ALCOHOLIC HEPATITIS WITHOUT ASCITES SNOMED Code(s): 127728821 (3) Normocytic anemia Current Visit: Yes Status: Acute Code(s): D64.9 - ANEMIA, UNSPECIFIED SNOMED Code(s): 302235420 Plan: Supportive care Okay for diet Continue to monitor hemoglobin and hematocrit and transfuse as needed Continue to monitor BMP, LFTs Alcohol abstinence Continue to switch her antibiotic therapy Appreciate recommendations from surgical service Thank you for allowing us to care the patient we will continue to follow
--- NOTE | 2020-01-12 00:28 | PN ---
PROGRESS NOTE DATE OF SERVICE: 01/11/2020 REASON FOR FOLLOWUP: Fever. INTERVAL HISTORY: The patient is currently afebrile. The patient is breathing comfortably. Denies having any chest pain. No shortness of breath or cough. Some abdominal pain, but no worsening. No nausea, no vomiting or any diarrhea. PHYSICAL EXAMINATION: Blood pressure is 110/58 with a pulse of 113, temperature 98.1. She is 99% on room air. General description is a middle-aged female lying in bed in no distress. Respiratory system: Unlabored breathing, clear to auscultation anteriorly. Heart S1, S2. Regular rate and rhythm. Abdomen soft, mildly distended. No guarding or rigidity. LABS: Hemoglobin 8.8, white count 8.0, BUN of 2 creatinine 0.41. DIAGNOSTIC IMPRESSION AND PLAN: Patient admitted with fever, possibly reactive versus gastrointestinal source in this patient who did have alcoholic hepatitis, possible cirrhosis. Patient is covered with Levaquin antibiotic to continue while waiting for the culture to finalize and continue supportive care. MMODL / IJN: [id number] /
[2020-01-12] MEDS: ONDANSETRON 4 MG/2 ML VIAL IVP PRN ×2 (04:02→19:41)
[2020-01-12] MEDS: KETOROLAC 30 MG/ML 1 ML VIAL IVP PRN (04:02)
[2020-01-12] MEDS: THIAMINE 100 MG TAB PO SCH ×2 (06:06→15:29)
[2020-01-12] MEDS: MULTIVITAMINS, THERA 1 EACH TAB PO SCH (10:07)
[2020-01-12] MEDS: traMADol 50 MG TAB PO SCH ×4 (10:07→23:25)
[2020-01-12] MEDS: METOPROLOL TARTRATE 12.5 MG TAB PO SCH ×2 (10:07→21:31)
[2020-01-12] MEDS: FAMOTIDINE 20 MG TAB PO SCH ×2 (10:07→21:31)
[2020-01-12] MEDS: levETIRAcetam 500 MG TAB PO SCH ×2 (10:08→21:31)
[2020-01-12] MEDS: HEPARIN SODIUM,PORCINE 5,000 UNIT/ML 1 ML VIAL SQ SCH ×2 (10:08→21:33)
--- NOTE | 2020-01-12 12:18 | P.PN ---
Subjective 29-year-old female came in with complaints of abdominal pain prominently in the epigastric area burning sensation. Nonradiating abdominal pain and mild to moderate severity her abdominal pain resolved. Patient is an alcoholic does drink alcohol daily basis does appear to have mild ascites clinically along with mildly elevated INR of 1.2. Patient drinks about a pint of alcohol every day patient last drink was yesterday morning patient is already having withdrawals patient is on alcohol withdrawal precautions. Patient denied any fever chills patient was having will nausea yesterday which resolved at this time. Patient is bit tachycardic with elevated lactic acid secondary to liver failure. Ammonia level is 23 liver enzymes are elevated along with the elevated bilirubin of 5.2 patient has low hemoglobin of 8.1 patient was recently treated for vaginal bleeding. 01/07/2020 Patient is still having significant withdrawals patient is still drowsy because of Ativan and not able to answer questions very well patient is comparing of abd ominal pain which is crampy in nature the midabdomen ultrasound of the abdomen did show some thickening of the gallbladder but appears to be secondary to mild ascites she is having. Patient is being treated for cirrhosis and alcoholic hepatitis as well. Patient had a low-grade fever. Which is believed to be secondary to atelectasis rest of the workup is negative for sepsis. Patient remains tachycardic part of which is secondary to fever and part of which is secondary to alcohol withdrawal we'll use low-dose of metoprolol blood pressure is borderline. We'll also an beta-hCG unfortunately this was not obtained since her admission. 01/08/2020 Patient can use to have fever blood cultures will be obtained as well as obtain a computed tomography scan of the abdomen to rule out any intra-abdominal abscesses possibilities that is contributing to her fever. Patient will be started on Unasyn patient didn't of drinking alcohol that she was able to hide in her room she still having withdrawals. Constitutional: Denied any fatigue denied any fever. Cardio vascular: denied any chest pain, palpitations Gastrointestinal as mentioned in HPI Pulmonary: Denied any shortness of breath cough Neurologic denied any new focal deficits All inpatient medications were reviewed and appropriate changes in these medications as dictated in the interval history and assessment and plan. 01/09/2020 Patient seen and evaluated in follow-up today with no acute overnight issues. Patient has been afebrile today. Hemoglobin this morning 6.9 and awaiting to receive 1 unit of PRBCs. Multiple consultations following. Patient is maintained on alcohol withdrawal protocol and does have a sitter at the bedside for safety. Patient states that she feels nauseated at times although is eating small amounts of meals. No reports of chest pain, shortness of breath, or palpitations. No reports of vomiting just intermittent nausea as mentioned previously. 01/10/2020 Patient is seen in follow-up today alert and oriented 3 and per nursing staff has not slept well overnight. Patient did receive a unit of PRBCs and current hemoglobin today is 8.5. IV fluids have been discontinued. Sodium today is 134 with a potassium of 3.7 and total bilirubin slightly elevated at 6.8. Multiple medical consultations following. Social work also consulted as patient will probably benefit from some form of alcohol rehab. Surgery following and recommending continued IV antibiotics along with close monitoring. Patient denies any suicidal ideation at this time. Patient states she is still having some withdrawal symptoms although is slightly improved today. Patient continues to have some right and left upper quadrant pain and is currently maintained on pain medications. Patient continues to have intermittent nausea with some vomiting although is able to keep down chocolate ensure drinks with minimal claire d. Will repeat a.m. labs. Patient denies having any chest pain or shortness of breath. Patient is afebrile now for 24 hours. 01/11/2020 Patient is comparing of epigastric abdominal burning sensation as well as superpubic pain. Patient's fevers or believed secondary to alcoholic [place] and no evidence of diuretic late is because of which metronidazole will be discontinued and levofloxacin although will be continued all the cultures so far are negative. INR is 1.9 patient is quite weak may require subacute rehabilitation because of which I'm unable to discharge the patient today because of her epigastric abdominal tenderness and changing the pain medications from Toradol 2 tramadol 01/12/2020 Patient's abdominal pain is better patient feels a bit better but will need to have physical therapy evaluation which is pending at this time may need subacute rehabilitation had a lengthy discussion about her alcohol use again today Constitutional: Denied any fatigue denied any fever. Cardio vascular: denied any chest pain, palpitations Gastrointestinal denied any nausea vomiting or melena. As mentioned above Pulmonary: Denied any shortness of breath cough Neurologic denied any new focal deficits All inpatient medications were reviewed and appropriate changes in these medications as dictated in the interval history and assessment and plan. Objective - Vital Signs Vital signs: Vital Signs Temp 96.8 F L 01/12/20 09:59 Pulse 109 H 01/12/20 09:59 Resp 18 01/12/20 09:59 BP 98/57 01/12/20 09:59 Pulse Ox 95 01/12/20 09:59 Intake & Output 01/11/20 01/12/20 01/12/20 18:59 06:59 18:59 Intake Total 240 240 420 Output Total 100 Balance 240 140 420 Intake: Oral 240 240 420 Output: Urine 100 Other: Voiding Method Bedside Commode Bedpan Bedside Commode Bedpan Bedpan # Voids 3 1 # Bowel Movements 2 - Exam GENERAL: Patient is awake, alert and oriented 3. HEENT: Pupils are round and equally reacting to light. EOMI. No scleral icterus. No conjunctival pallor. Normocephalic, atraumatic. No pharyngeal erythema. No thyromegaly. CARDIOVASCULAR: S1 and S2 present. No murmurs, rubs, or gallops. PULMONARY: Chest is clear to auscultation, no wheezing or crackles. ABDOMEN: Soft, mild tenderness in the epigastric area, nondistended, normoactive bowel sounds. No palpable organomegaly. Mild ascites MUSCULOSKELETAL: No joint swelling or deformity. EXTREMITIES: No cyanosis, clubbing, or pedal edema. NEUROLOGICAL: Gross neurological examination did not reveal any focal deficits. SKIN: No rashes. - Labs CBC & Chem 7: 01/11/20 07:05 01/11/20 07:05 Labs: Microbiology - Last 24 Hours (Table) 01/08/20 13:00 Blood Culture - Preliminary Blood No Growth after 72 hours Assessment and Plan Plan: -Alcohol withdrawal, delirium tremens patient is on Ativan CIWA protocol patient doesn't have any withdrawals -Possible sepsis source of infection is unknown Levaquin , metronidazole will be discussed uterine there is no evidence of diabetes mellitus Levaquin although will be continued and patient was evaluated by infectious disease. -Abdominal pain probably secondary to alcoholic gastritis patient patient was switched to tramadol from Toradol because of epigastric abdominal pain -Mild acquired lefty secondary to possible cirrhosis -Acute alcoholic hepatitis with possibly of cirrhosis, patient does have mild ascites -Hyponatremia probably hypervolemic hyponatremia , "" -ANEMIA APPEARS TO BE CHRONIC NO ACUTE GI BLEED OR VAGINAL BLEED AND ANEMIA IS PROBABLY MULTIFACTORIAL INCLUDING IRON DEFICIENCY AND SECONDARY TO ALCOHOL abuse or liver disease. -Lactic acidosis secondary to liver failure continue with IV fluids at this time, improved -Obstructive jaundice secondary to either alcoholic hepatitis or cirrhosis Generalized weakness may require subacute rehab -DVT prophylaxis with subcutaneous heparin
--- NOTE | 2020-01-12 13:58 | P.PN ---
Subjective Progress Note Date: 01/12/20 Principal diagnosis: History of chronic alcohol abuse with likely acute alcoholic hepatitis The patient is seen today in 01/12/2020 in follow-up on the selective care unit. She remains awake and alert in no acute distress. She is maintaining good O2 saturations in the 90s on room air. She's been afebrile. No delirium tremens noted. She remains in the CIWA protocol. Continued on Keppra , no seizure activity noted. Objective - Vital Signs Vital signs: Vital Signs Temp 96.8 F L 01/12/20 09:59 Pulse 109 H 01/12/20 09:59 Resp 18 01/12/20 09:59 BP 98/57 01/12/20 09:59 Pulse Ox 95 01/12/20 09:59 Intake & Output 01/11/20 01/12/20 01/12/20 18:59 06:59 18:59 Intake Total 240 240 420 Output Total 100 Balance 240 140 420 Intake: Oral 240 240 420 Output: Urine 100 Other: Voiding Method Bedside Commode Bedpan Bedside Commode Bedpan Bedpan # Voids 3 1 # Bowel Movements 2 - Exam GENERAL EXAM: Awake and alert, jaundiced 29-year-old white female, currently on room air, comfortable in no apparent distress. HEAD: Normocephalic/atraumatic. EYES: Normal reaction of pupils, equal size. Conjunctiva pink, sclera white. NOSE: Clear with pink turbinates. THROAT: No erythema or exudates. NECK: No masses, no JVD, no thyroid enlargement, no adenopathy. CHEST: No chest wall deformity. Symmetrical expansion. LUNGS: Equal air entry with no crackles, wheeze, rhonchi or dullness. CVS: Regular rate and rhythm, normal S1 and S2, no gallops, no murmurs, no rubs ABDOMEN: Soft, nontender. No hepatosplenomegaly, normal bowel sounds, no guarding or rigidity. EXTREMITIES: No clubbing, no edema, no cyanosis, 2+ pulses and upper and lower extremities. MUSCULOSKELETAL: Muscle strength and tone normal. SPINE: No scoliosis or deformity SKIN: No rashes CENTRAL NERVOUS SYSTEM: Awake and alert, oriented 3, No focal deficits, tone is normal in all 4 extremities. - Labs CBC & Chem 7: 01/11/20 07:05 01/11/20 07:05 Labs: Microbiology - Last 24 Hours (Table) 01/08/20 13:00 Blood Culture - Preliminary Blood No Growth after 72 hours Assessment and Plan Assessment: #1. History of chronic alcohol abuse with likely acute alcoholic hepatitis #2. History of alcoholic liver disease with chronic alcohol abuse and probable acute alcohol withdrawal syndrome #3. Coagulopathy secondary to above, INR 1.8 #4. 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 Sinus tachycardia, related to acute alcohol syndrome #6. Lactic acidosis, resolved #7. Anemia of chronic disease., Status post 1 unit packed red blood cells this admission. Hemoglobin 8.8. #8. Hyperbilirubinemia #9. 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 Rajiv Cristobal from the pulmonary and critical care standpoint Discharge planning is in place Patient is reluctant to go to rehab I, the cosigning physician, performed a history & physical examination of the patient. Lungs sounds are clear. Maintaining good O2 saturations in the 90s on room air. I discussed the assessment and plan of care with my nurse practitioner, Erika Edmondson. I attest to the above note as dictated by her.
--- NOTE | 2020-01-12 14:03 | P.PN ---
Subjective Progress Note Date: 01/12/20 Principal diagnosis: Abdominal pain Patient sitting up at the bedside. Pain is improved. Heart rate 110s. She is afebrile. No labs today. Slightly improved appetite. Objective - Vital Signs Vital signs: Vital Signs Temp 96.4 F L 01/12/20 11:30 Pulse 104 H 01/12/20 11:30 Resp 18 01/12/20 11:30 BP 102/65 01/12/20 11:30 Pulse Ox 99 01/12/20 11:30 Intake & Output 01/11/20 01/12/20 01/12/20 18:59 06:59 18:59 Intake Total 240 240 420 Output Total 100 Balance 240 140 420 Intake: Oral 240 240 420 Output: Urine 100 Other: Voiding Method Bedside Commode Bedpan Bedside Commode Bedpan Bedpan # Voids 3 1 # Bowel Movements 2 - Exam Abdomen: Soft, mild upper abdominal tenderness, no rebound or guarding - Labs CBC & Chem 7: 01/11/20 07:05 01/11/20 07:05 Labs: Microbiology - Last 24 Hours (Table) 01/08/20 13:00 Blood Culture - Preliminary Blood No Growth after 72 hours Assessment and Plan (1) Acalculous cholecystitis Narrative/Plan: Continue diet as tolerated. Monitor repeat labs tomorrow. Increase activity. Current Visit: No Status: Acute Code(s): K81.9 - CHOLECYSTITIS, UNSPECIFIED SNOMED Code(s): 76490814
[2020-01-12] MEDS: LEVOFLOXACIN 500 MG TAB PO SCH (19:41)
[2020-01-12] MEDS ORDERED: PHYTONADIONE ORAL 5 MG/5 ML ORAL.SYRG PO STA (20:08)
--- NOTE | 2020-01-12 20:12 | P.PN ---
Subjective Progress Note Date: 01/12/20 Principal diagnosis: Normocytic anemia, elevated liver enzymes, alcoholic hepatitis The patient seen lying in bed, she is tolerating diet and reporting less abdominal pain today. No nausea or vomiting. Objective - Vital Signs Vital signs: Vital Signs Temp 96.8 F L 01/12/20 09:59 Pulse 109 H 01/12/20 09:59 Resp 18 01/12/20 09:59 BP 98/57 01/12/20 09:59 Pulse Ox 95 01/12/20 09:59 Intake & Output 01/11/20 01/12/20 01/12/20 18:59 06:59 18:59 Intake Total 240 240 420 Output Total 100 Balance 240 140 420 Intake: Oral 240 240 420 Output: Urine 100 Other: Voiding Method Bedside Commode Bedpan Bedpan # Voids 3 1 # Bowel Movements 2 - Exam On physical examination, patient appears comfortable in no apparent distress. HEAD: Normocephalic, atraumatic. EYES: No scleral icterus. No conjunctival injection. MOUTH: No lesions, tongue midline. NECK: Trachea midline, no gross abnormalities. ABDOMEN: Soft, obese. Bowel sounds are positive. No organomegaly. No guarding or rigidity. EXTREMITIES: No pedal edema. SKIN: No rashes, no jaundice. NEUROLOGIC: Alert and oriented x3, no asterixis noted. No focal deficits. - Labs CBC & Chem 7: 01/11/20 07:05 01/11/20 07:05 Labs: Microbiology - Last 24 Hours (Table) 01/08/20 13:00 Blood Culture - Preliminary Blood No Growth after 72 hours Assessment and Plan (1) Elevated liver enzymes Narrative/Plan: 29-year-old female with a history of alcohol abuse with elevated liver enzymes, likely multifactorial. Liver enzymes secondary to alcohol abuse, suspicion for acute cholecystitis, also for a component of acute alcohol hepatitis. Currently being treated conservatively and with antibiotic therapy. Current Visit: Yes Status: Acute Code(s): R74.8 - ABNORMAL LEVELS OF OTHER SERUM ENZYMES SNOMED Code(s): 015772759 (2) Alcoholic hepatitis Current Visit: No Status: Acute Code(s): K70.10 - ALCOHOLIC HEPATITIS WITHOUT ASCITES SNOMED Code(s): 116915632 (3) Normocytic anemia Current Visit: Yes Status: Acute Code(s): D64.9 - ANEMIA, UNSPECIFIED SNOMED Code(s): 814828500 Plan: Supportive care Okay for diet Continue to monitor hemoglobin and hematocrit and transfuse as needed Continue to monitor BMP, LFTs, INR Dose of vitamin K ordered Alcohol abstinence Continue to switch her antibiotic therapy Appreciate recommendations from surgical service Thank you for allowing us to care the patient we will continue to follow
[2020-01-13] MEDS: traMADol 50 MG TAB PO SCH ×5 (02:31→21:29)
--- NOTE | 2020-01-13 02:39 | PN ---
PROGRESS NOTE DATE OF SERVICE: 01/12/2020 REASON FOR FOLLOWUP: Fever. INTERVAL HISTORY: The patient is currently afebrile. The patient is breathing comfortably. Patient denies having any chest pain or cough. Abdominal pain is currently improved. No further vomiting and no diarrhea. PHYSICAL EXAMINATION: Blood pressure 97/62 with a pulse of 105, temperature 96.8. She is 99% on room air. General description is a middle-aged female lying in bed in no distress. RESPIRATORY SYSTEM: Unlabored breathing, clear to auscultation anteriorly. HEART: S1, S2. Regular rate and rhythm. ABDOMEN: Soft, no tenderness. LABS: Hemoglobin 8.8, white count of 8.0. BUN of 2, creatinine 0.41. Culture has been negative so far. DIAGNOSTIC IMPRESSION AND PLAN: Patient with fever possibly reactive in this patient admitted to hospital with alcoholic hepatitis and a question of cholecystitis. The patient is currently covered with Levaquin because of her multiple antibiotic allergies and continue with supportive care. MMODL / IJN: [id number] /
[2020-01-13] MEDS: LORazepam 2 MG/ML INJ IV PRN ×4 (03:21→20:47)
[2020-01-13] MEDS: ONDANSETRON 4 MG/2 ML VIAL IVP PRN ×2 (04:01→10:26)
[2020-01-13 07:30] LABS: INR 1.9 (<1.2); Prothrombin Time 18.4 sec (9.0-12.0)
[2020-01-13 07:35] LABS: ALT 10 U/L (4-34); AST 48 U/L (14-36); African American GFR (CKD) >90 (>60 ml/min/1.73 sqM); Albumin 2.1 g/dL (3.5-5.0); Alkaline Phosphatase 233 U/L (38-126); Bilirubin, Conjugated 6.1 mg/dL (0.0-0.3); Bilirubin, Delta 3.5 mg/dL (0.0-0.2); Bilirubin,Unconjugated 1.4 mg/dL (0.0-1.1); Blood Urea Nitrogen 3 mg/dL (7-17); Calcium 7.7 mg/dL (8.4-10.2); Carbon Dioxide 19 mmol/L (22-30); Chloride 104 mmol/L (98-107); Glucose 56 mg/dL (74-99); Non-African American GFR(CKD) >90 (>60 ml/min/1.73 sqM); Potassium 3.9 mmol/L (3.5-5.1); Total Protein 5.4 g/dL (6.3-8.2)
[2020-01-13] MEDS: HEPARIN SODIUM,PORCINE 5,000 UNIT/ML 1 ML VIAL SQ SCH ×2 (07:41→20:49)
[2020-01-13] MEDS: MULTIVITAMINS, THERA 1 EACH TAB PO SCH (07:42)
[2020-01-13] MEDS: THIAMINE 100 MG TAB PO SCH ×2 (07:42→17:27)
[2020-01-13] MEDS: FAMOTIDINE 20 MG TAB PO SCH ×2 (07:42→21:29)
[2020-01-13] MEDS: levETIRAcetam 500 MG TAB PO SCH ×2 (07:49→20:49)
[2020-01-13] MEDS: METOPROLOL TARTRATE 12.5 MG TAB PO SCH ×2 (07:50→20:47)
[2020-01-13 08:47] LABS: Anion Gap 10 mmol/L; Sodium 133 mmol/L (137-145)
--- NOTE | 2020-01-13 08:53 | P.PN ---
Subjective Progress Note Date: 01/13/20 Principal diagnosis: Abdominal pain Patient somewhat more drowsy today. Said she received morphine this morning. Describes her pain being worse today. Mostly upper abdomen. Bilirubin 11.0, INR 1.9. CBC pending. Appetite remains diminished. She is afebrile. Tachycardia continues. Objective - Vital Signs Vital signs: Vital Signs Temp 99.4 F 01/13/20 05:45 Pulse 118 H 01/13/20 05:45 Resp 18 01/13/20 05:45 BP 98/63 01/13/20 05:45 Pulse Ox 98 01/13/20 05:45 Intake & Output 01/12/20 01/13/20 01/13/20 18:59 06:59 18:59 Intake Total 980 300 Output Total 120 Balance 860 300 Intake: IV 160 saline 160 Oral 820 300 Output: Urine 120 Other: Voiding Method Bedside Commode Bedside Commode Bedpan Bedpan # Voids 1 - Exam Abdomen: Soft, nondistended, mild upper abdominal tenderness both right and left upper quadrants - Labs CBC & Chem 7: 01/11/20 07:05 01/13/20 05:55 Labs: Abnormal Lab Results - Last 24 Hours (Table) 01/13/20 01/13/20 Range/Units 05:55 05:55 PT 18.4 H (9.0-12.0) sec INR 1.9 H (<1.2) Sodium 133 L (137-145) mmol/L Carbon Dioxide 19 L (22-30) mmol/L BUN 3 L (7-17) mg/dL Creatinine 0.44 L (0.52-1.04) mg/dL Glucose 56 L (74-99) mg/dL Calcium 7.7 L (8.4-10.2) mg/dL Total Bilirubin 11.0 H (0.2-1.3) mg/dL Conjugated Bilirubin 6.1 H (0.0-0.3) mg/dL Unconjugated Bilirubin 1.4 H (0.0-1.1) mg/dL Delta Bilirubin 3.5 H (0.0-0.2) mg/dL AST 48 H (14-36) U/L Alkaline Phosphatase 233 H (38-126) U/L Total Protein 5.4 L (6.3-8.2) g/dL Albumin 2.1 L (3.5-5.0) g/dL Microbiology - Last 24 Hours (Table) 01/08/20 13:00 Blood Culture - Preliminary Blood No Growth after 96 hours Assessment and Plan (1) Acalculous cholecystitis Narrative/Plan: Patient with worsening pain again. She had been doing better. Liver function also decompensated further. Will discuss with GI and medicine. Current Visit: No Status: Acute Code(s): K81.9 - CHOLECYSTITIS, UNSPECIFIED SNOMED Code(s): 54645665
[2020-01-13] MEDS ORDERED: MORPHINE SULFATE 2 MG/ML SYRINGE IVP STA (10:01)
--- NOTE | 2020-01-13 13:29 | P.PN ---
Subjective Progress Note Date: 01/13/20 This patient is 29 with known history of alcoholism and alcoholic liver cirrhosis and today the patient is being seen in follow-up in the medical floor. The patient was hospitalized earlier for abdominal pain and she was transferred to us from [facility] as the patient was noted to be having ta chycardia on lactic acidosis in addition to abnormal LFTs. The patient got transferred to us for further treatment. The patient was in the intensive care unit due to concerns of alcohol withdrawal. We'll monitor the patient. She was diagnosed having a component of acute alcoholic hepatitis as the patient was still drinking 1 pint of liquor on a daily basis. She did not have any significant alcohol withdrawal symptoms such as delirium tremens. No seizure activity. Her lactic acidosis resolved. The patient got transferred to a medical floor. CAT scan of the abdomen and pelvis raised the possibility of a Budd-Chiari syndrome and for that reason general surgery and gastroenterology were with the patient and this was essentially ruled out. For now, she is still a bit drowsy and sleepy. Her coagulation profile is abnormal related to liver cirrhosis. She has abnormal bilirubin which is on the rise up to 11 and AST and a lengthy are mildly elevated with an alkaline phosphatase of 233. Note that the ultrasound the liver had shown no evidence of any cholecystitis. There was evidence of hepatomegaly with probable hepatic steatosis. Ascites was minimal and there is evidence of splenomegaly. The patient is currently on Pepcid, lactulose, Keppra for alcoholic seizures and she has not required any Ativan intake. No signs of any delirium tremens for now. Objective - Vital Signs Vital signs: Vital Signs Temp 98.4 F 01/13/20 12:43 Pulse 121 H 01/13/20 12:43 Resp 18 01/13/20 12:43 BP 94/56 01/13/20 12:43 Pulse Ox 98 01/13/20 12:43 Intake & Output 01/12/20 01/13/20 01/13/20 18:59 06:59 18:59 Intake Total 980 300 Output Total 120 Balance 860 300 Intake: IV 160 saline 160 Oral 820 300 Output: Urine 120 Other: Voiding Method Bedside Commode Bedside Commode Bedpan Bedpan # Voids 1 - Exam GENERAL EXAM: Awake and alert, jaundiced 29-year-old white female, sitting in bed, with a industrial health and safety professor at the bedside currently on room air with a pulse ox of 96% comfortable in no apparent distress. HEAD: Normocephalic/atraumatic. EYES: Normal reaction of pupils, equal size, sclera white. And there is evidence of conjunctival icterus. NOSE: Clear with pink turbinates. THROAT: No erythema or exudates. NECK: No masses, no JVD, no thyroid enlargement, no adenopathy. CHEST: No chest wall deformity. Symmetrical expansion. LUNGS: Equal air entry with no crackles, wheeze, rhonchi or dullness. CVS: Regular rate and rhythm, normal S1 and S2, no gallops, no murmurs, no rubs ABDOMEN: Soft, nontender. No hepatosplenomegaly, normal bowel sounds, no guarding or rigidity. EXTREMITIES: No clubbing, no edema, no cyanosis, 2+ pulses and upper and lower extremities. MUSCULOSKELETAL: Muscle strength and tone normal. SPINE: No scoliosis or deformity SKIN: No rashes CENTRAL NERVOUS SYSTEM: Awake and alert, oriented 3, slowing answering questions and she is admitted lethargic and drowsy., No focal deficits, tone is normal in all 4 extremities. - Labs CBC & Chem 7: 01/11/20 07:05 01/13/20 05:55 Labs: Abnormal Lab Results - Last 24 Hours (Table) 01/13/20 01/13/20 Range/Units 05:55 05:55 PT 18.4 H (9.0-12.0) sec INR 1.9 H (<1.2) Sodium 133 L (137-145) mmol/L Carbon Dioxide 19 L (22-30) mmol/L BUN 3 L (7-17) mg/dL Creatinine 0.44 L (0.52-1.04) mg/dL Glucose 56 L (74-99) mg/dL Calcium 7.7 L (8.4-10.2) mg/dL Total Bilirubin 11.0 H (0.2-1.3) mg/dL Conjugated Bilirubin 6.1 H (0.0-0.3) mg/dL Unconjugated Bilirubin 1.4 H (0.0-1.1) mg/dL Delta Bilirubin 3.5 H (0.0-0.2) mg/dL AST 48 H (14-36) U/L Alkaline Phosphatase 233 H (38-126) U/L Total Protein 5.4 L (6.3-8.2) g/dL Albumin 2.1 L (3.5-5.0) g/dL Microbiology - Last 24 Hours (Table) 01/08/20 13:00 Blood Culture - Preliminary Blood No Growth after 96 hours Assessment and Plan Plan: #1. Chronic liver failure secondary to alcoholism and liver cirrhosis. The patient presented with acute decompensation with a component of acute alcoholic hepatitis including lactic acidosis and altered mental status and she gradually improved. The patient does not have any signs of the hand tremors for now. Nevertheless, her bilirubin is on the rise and she continues to have coagulopathy related to liver failure. No concern for Budd-Chiari syndrome based on the surgical and the GI evaluation. #2. Chronic alcoholism #3. Altered mental status secondary to above, improved #4. Seizure disorder could be induced by alcohol withdrawal syndrome #5. Sinus tachycardia, related to acute alcohol syndrome #6. Lactic acidosis, resolved #7. Anemia of chronic disease #8. Hyperbilirubinemia and the bilirubin is on the rise. #9. 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 It should this point in time. We'll continue to follow. Nevertheless, the patient has significant hepatic dysfunction and would like further input from general surgery and gastroenterology regarding the ongoing rise of the LFTs.
--- NOTE | 2020-01-13 15:43 | P.PN ---
Subjective Progress Note Date: 01/13/20 Principal diagnosis: 29-year-old female came in with complaints of abdominal pain prominently in the epigastric area burning sensation. Nonradiating abdominal pain and mild to mod erate severity her abdominal pain resolved. Patient is an alcoholic does drink alcohol daily basis does appear to have mild ascites clinically along with mildly elevated INR of 1.2. Patient drinks about a pint of alcohol every day patient last drink was yesterday morning patient is already having withdrawals patient is on alcohol withdrawal precautions. Patient denied any fever chills patient was having will nausea yesterday which resolved at this time. Patient is bit tachycardic with elevated lactic acid secondary to liver failure. Ammonia level is 23 liver enzymes are elevated along with the elevated bilirubin of 5.2 patient has low hemoglobin of 8.1 patient was recently treated for v aginal bleeding. 01/07/2020 Patient is still having significant withdrawals patient is still drowsy because of Ativan and not able to answer questions very well patient is comparing of abdominal pain which is crampy in nature the midabdomen ultrasound of the abdomen did show some thickening of the gallbladder but appears to be secondary to mild ascites she is having. Patient is being treated for cirrhosis and alcoholic hepatitis as well. Patient had a low-grade fever. Which is believed to be secondary to atelectasis rest of the workup is negative for sepsis. Patient remains tachycardic part of which is secondary to fever and part of which is secondary to alcohol withdrawal we'll use low-dose of metoprolol blood pressure is borderline. We'll also an beta-hCG unfortunately this was not obtained since her admission. 01/08/2020 Patient can use to have fever blood cultures will be obtained as well as obtain a computed tomography scan of the abdomen to rule out any intra-abdominal abs cesses possibilities that is contributing to her fever. Patient will be started on Unasyn patient didn't of drinking alcohol that she was able to hide in her room she still having withdrawals. Constitutional: Denied any fatigue denied any fever. Cardio vascular: denied any chest pain, palpitations Gastrointestinal as mentioned in HPI Pulmonary: Denied any shortness of breath cough Neurologic denied any new focal deficits All inpatient medications were reviewed and appropriate changes in these medications as dictated in the interval history and assessment and plan. 01/09/2020 Patient seen and evaluated in follow-up today with no acute overnight issues. Patient has been afebrile today. Hemoglobin this morning 6.9 and awaiting to receive 1 unit of PRBCs. Multiple consultations following. Patient is maintained on alcohol withdrawal protocol and does have a sitter at the bedside for safety. Patient states that she feels nauseated at times although is eating small amounts of meals. No reports of chest pain, shortness of breath, or palpitations. No reports of vomiting just intermittent nausea as mentioned previously. 01/10/2020 Patient is seen in follow-up today alert and oriented 3 and per nursing staff has not slept well overnight. Patient did receive a unit of PRBCs and current hemoglobin today is 8.5. IV fluids have been discontinued. Sodium today is 134 with a potassium of 3.7 and total bilirubin slightly elevated at 6.8. Multiple medical consultations following. Social work also consulted as patient will probably benefit from some form of alcohol rehab. Surgery following and recommending continued IV antibiotics along with close monitoring. Patient ramesh es any suicidal ideation at this time. Patient states she is still having some withdrawal symptoms although is slightly improved today. Patient continues to have some right and left upper quadrant pain and is currently maintained on pain medications. Patient continues to have intermittent nausea with some vomiting although is able to keep down chocolate ensure drinks with minimal food. Will repeat a.m. labs. Patient denies having any chest pain or shortness of breath. Patient is afebrile now for 24 hours. 01/11/2020 Patient is comparing of epigastric abdominal burning sensation as well as superpubic pain. Patient's fevers or believed secondary to alcoholic [place] and no evidence of diuretic late is because of which metronidazole will be discontinued and levofloxacin although will be continued all the cultures so far are negative. INR is 1.9 patient is quite weak may require subacute rehabilitation because of which I'm unable to discharge the patient today because of her epigastric abdominal tenderness and changing the pain medications from Toradol 2 tramadol 01/12/2020 Patient's abdominal pain is better patient feels a bit better but will need to have physical therapy evaluation which is pending at this time may need subacute rehabilitation had a lengthy discussion about her alcohol use again today Constitutional: Denied any fatigue denied any fever. Cardio vascular: denied any chest pain, palpitations Gastrointestinal denied any nausea vomiting or melena. As mentioned above Pulmonary: Denied any shortness of breath cough Neurologic denied any new focal deficits All inpatient medications were reviewed and appropriate changes in these medications as dictated in the interval history and assessment and plan. 01/13/2020 Patient is seen and evaluated in follow-up today stating that she continues to be weak although PT/OT in to evaluate the patient and patient refused. Patient states she continues to have abdominal pain and states that her muscles are aching and also stating that Ultram is not helping. Patient given a one-time dose for morphine. Patient currently remains on Levaquin and will continue at this time. Patient was given a dose of vitamin K yesterday for coagulopathy. Multiple medical consultations following. Patient also continues to refuse alcohol rehab at this time. Patient is lethargic but arousable and has not been getting up and out of the bed at all. Patient's appetite continues to be poor and continues to have intermittent nausea and states that she did have one episode of emesis yesterday. Bilirubin elevated at 11.0 . Sodium 133 today. INR is 1.9. Patient also continues to be tachycardic in the 120s with no report s of chest pain or palpitations at this time. Objective - Vital Signs Vital signs: Vital Signs Temp 98.4 F 01/13/20 12:43 Pulse 121 H 01/13/20 12:43 Resp 18 01/13/20 12:43 BP 94/56 01/13/20 12:43 Pulse Ox 98 01/13/20 12:43 Intake & Output 01/12/20 01/13/20 01/13/20 18:59 06:59 18:59 Intake Total 980 300 200 Output Total 120 Balance 860 300 200 Intake: IV 160 saline 160 Oral 820 300 200 Output: Urine 120 Other: Voiding Method Bedside Commode Bedside Commode Incontinent Bedpan Bedpan # Voids 1 1 - Exam GENERAL: Patient is asleep, but arousable awake, alert and oriented 3. very lethargic HEENT: Pupils are round and equally reacting to light. EOMI. No scleral icterus. No conjunctival pallor. Normocephalic, atraumatic. No pharyngeal erythema. No thyromegaly. CARDIOVASCULAR: S1 and S2 present. No murmurs, rubs, or gallops. PULMONARY: Chest is clear to auscultation, no wheezing or crackles. ABDOMEN: Soft, mild tenderness in the epigastric area, nondistended, normoactive bowel sounds. No palpable organomegaly. Mild ascites MUSCULOSKELETAL: No joint swelling or deformity. EXTREMITIES: No cyanosis, clubbing, or pedal edema. NEUROLOGICAL: Gross neurological examination did not reveal any focal deficits. SKIN: No rashes. - Labs CBC & Chem 7: 01/11/20 07:05 01/13/20 05:55 Labs: Abnormal Lab Results - Last 24 Hours (Table) 01/13/20 01/13/20 Range/Units 05:55 05:55 PT 18.4 H (9.0-12.0) sec INR 1.9 H (<1.2) Sodium 133 L (137-145) mmol/L Carbon Dioxide 19 L (22-30) mmol/L BUN 3 L (7-17) mg/dL Creatinine 0.44 L (0.52-1.04) mg/dL Glucose 56 L (74-99) mg/dL Calcium 7.7 L (8.4-10.2) mg/dL Total Bilirubin 11.0 H (0.2-1.3) mg/dL Conjugated Bilirubin 6.1 H (0.0-0.3) mg/dL Unconjugated Bilirubin 1.4 H (0.0-1.1) mg/dL Delta Bilirubin 3.5 H (0.0-0.2) mg/dL AST 48 H (14-36) U/L Alkaline Phosphatase 233 H (38-126) U/L Total Protein 5.4 L (6.3-8.2) g/dL Albumin 2.1 L (3.5-5.0) g/dL Microbiology - Last 24 Hours (Table) 01/08/20 13:00 Blood Culture - Preliminary Blood No Growth after 120 hours Assessment and Plan Assessment: -Alcohol withdrawal, delirium tremens patient is on Ativan CIWA protocol patient doesn't have any withdrawals -Possible sepsis source of infection is unknown Levaquin , Flagyl discontinued -Abdominal pain probably secondary to alcoholic gastritis patient patient was switched to tramadol from Toradol because of epigastric abdominal pain -Mild acquired lefty secondary to possible cirrhosis -Acute alcoholic hepatitis with possibly of cirrhosis, patient does have mild ascites -Hyponatremia probably hypervolemic hyponatremia , current sodium is 133 -ANEMIA APPEARS TO BE CHRONIC NO ACUTE GI BLEED OR VAGINAL BLEED AND ANEMIA IS PROBABLY MULTIFACTORIAL INCLUDING IRON DEFICIENCY AND SECONDARY TO ALCOHOL abuse or liver disease. -Lactic acidosis secondary to liver failure, improved -Obstructive jaundice secondary to either alcoholic hepatitis or cirrhosis -Generalized weakness may require subacute rehab, will attempt PT/OT eval as patient refused today -DVT prophylaxis with subcutaneous heparin
[2020-01-13] MEDS ORDERED: PHYTONADIONE ORAL 5 MG/5 ML ORAL.SYRG PO STA (16:38)
[2020-01-13] MEDS: LEVOFLOXACIN 500 MG TAB PO SCH (20:48)
--- NOTE | 2020-01-13 23:47 | PN ---
PROGRESS NOTE DATE OF SERVICE: 01/13/2020. REASON FOR FOLLOWUP: Fever and acalculous cholecystitis. INTERVAL HISTORY: The patient is currently afebrile. She is breathing comfortably. Still complaining of pain to the right upper abdominal area. No nausea, no vomiting. No chest pain, shortness of breath or cough. PHYSICAL EXAMINATION: Blood pressure 94/56 with the pulse of 121, temperature 98.4. She is 98% room air. General description is a middle-aged female lying in bed in no distress. RESPIRATORY SYSTEM: Unlabored breathing, clear to auscultation anteriorly. HEART: S1, S2. Regular rate and rhythm. ABDOMEN: Soft, slightly distended. No guarding or rigidity. LABS: Creatinine 0.44. Liver enzymes elevated. DIAGNOSTIC IMPRESSION AND PLAN: Patient with low-grade fever, multifactorial with concern for possible acalculous cholecystitis. Patient is currently on Levaquin. Fever resolved. Continue and monitor clinical course closely. MMODL / IJN: [id number] /
[2020-01-14] MEDS: LORazepam 2 MG/ML INJ IV PRN ×2 (00:20→08:44)
[2020-01-14 05:46] VITALS: RESP 18
[2020-01-14 07:58] LABS: ALT 9 U/L (4-34); AST 43 U/L (14-36); African American GFR (CKD) >90 (>60 ml/min/1.73 sqM); Albumin 1.9 g/dL (3.5-5.0); Alkaline Phosphatase 194 U/L (38-126); Anion Gap 10 mmol/L; Blood Urea Nitrogen <2 mg/dL (7-17); Calcium 7.5 mg/dL (8.4-10.2); Carbon Dioxide 22 mmol/L (22-30); Chloride 102 mmol/L (98-107); Glucose 67 mg/dL (74-99); Non-African American GFR(CKD) >90 (>60 ml/min/1.73 sqM); Potassium 3.4 mmol/L (3.5-5.1); Sodium 134 mmol/L (137-145); Total Bilirubin 11.8 mg/dL (0.2-1.3); Total Protein 5.1 g/dL (6.3-8.2)
[2020-01-14 08:16] LABS: Anisocytosis Slight; Basophils % (A) 0 %; Eosinophils # (A) 0.1 k/uL (0-0.7); Eosinophils % (A) 1 %; HCT 27.5 % (34.0-46.0); HGB 8.5 gm/dL (11.4-16.0); Hypochromasia Marked; Lymphocytes % (A) 10 %; MCH 31.6 pg (25.0-35.0); MCHC 31.1 g/dL (31.0-37.0); MCV 101.5 fL (80.0-100.0); Macrocytosis Moderate; Monocytes % (A) 10 %; Neutrophils # (A) 7.4 k/uL (1.3-7.7); Neutrophils % (A) 77 %; Platelet Count 198 k/uL (150-450); RBC 2.71 m/uL (3.80-5.40); RDW 19.9 % (11.5-15.5); WBC 9.7 k/uL (3.8-10.6)
[2020-01-14] MEDS: THIAMINE 100 MG TAB PO SCH (08:33)
[2020-01-14] MEDS: levETIRAcetam 500 MG TAB PO SCH (08:33)
[2020-01-14] MEDS: MULTIVITAMINS, THERA 1 EACH TAB PO SCH (08:34)
[2020-01-14] MEDS: traMADol 50 MG TAB PO SCH ×2 (08:34→13:11)
[2020-01-14] MEDS: FAMOTIDINE 20 MG TAB PO SCH (08:34)
[2020-01-14] MEDS: METOPROLOL TARTRATE 12.5 MG TAB PO SCH (08:34)
[2020-01-14] MEDS: HEPARIN SODIUM,PORCINE 5,000 UNIT/ML 1 ML VIAL SQ SCH (08:35)
[2020-01-14] MEDS: ONDANSETRON 4 MG/2 ML VIAL IVP PRN (08:43)
[2020-01-14] MEDS: POTASSIUM CHLORIDE ER 20 MEQ TAB.ER PO SCH ×2 (08:43→09:49)
[2020-01-14 10:00] LABS: INR 1.9 (<1.2); Prothrombin Time 18.6 sec (9.0-12.0)
--- NOTE | 2020-01-14 10:48 | P.PN ---
<Kennedi Houser - Last Filed: 01/14/20 10:44> Subjective Progress Note Date: 01/14/20 CHIEF COMPLAINT: Abdominal pain HISTORY OF PRESENT ILLNESS: Patient examined this morning. She is sitting up in the chair. Patient remains somewhat lethargic and slow to answer questions. She continues to report abdominal pain in the right and left upper quadrants. She states her pain is about the same as yesterday. WBC 9.7. Hemoglobin 8.5. Bilirubin 11.8. AST 43. ALT 9. Alkaline phosphatase 194. She remains tachycardic. Afebrile this morning. PHYSICAL EXAM: VITAL SIGNS: Reviewed. GENERAL: Well-developed in no acute distress. HEENT: No sclera icterus. Extraocular movements grossly intact. Moist buccal mucosa. Head is atraumatic, normocephalic. ABDOMEN: Soft. Nondistended. Tenderness to right and left upper quadrants with palpation. NEUROLOGIC: Drowsy.Cranial nerves II through XII grossly intact. ASSESSMENT: 1. Abdominal pain 2. Acalculous cholecystitis 3. History of alcohol abuse 4. Hyperbilirubinemia PLAN: -Continue diet as tolerated -Pain control -Monitor LFTs -Dr. Bernard will re-evaluate patient today. Further recommendations pending. Nurse practitioner note has been reviewed by physician. Signing provider agrees with the documented findings, assessment, and plan of care. Objective - Vital Signs Vital signs: Vital Signs Temp 98.3 F 01/14/20 05:00 Pulse 101 H 01/14/20 05:00 Resp 18 01/14/20 05:00 BP 96/65 01/14/20 05:00 Pulse Ox 96 01/14/20 05:00 Intake & Output 01/13/20 01/14/20 01/14/20 18:59 06:59 18:59 Intake Total 200 200 Balance 200 200 Intake: Oral 200 200 Other: Voiding Method Incontinent Incontinent # Voids 1 1 1 - Labs CBC & Chem 7: 01/14/20 06:14 01/14/20 06:14 Labs: Abnormal Lab Results - Last 24 Hours (Table) 01/14/20 01/14/20 Range/Units 06:14 06:14 RBC 2.71 L (3.80-5.40) m/uL Hgb 8.5 L (11.4-16.0) gm/dL Hct 27.5 L (34.0-46.0) % MCV 101.5 H (80.0-100.0) fL RDW 19.9 H (11.5-15.5) % Sodium 134 L (137-145) mmol/L Potassium 3.4 L (3.5-5.1) mmol/L BUN <2 L (7-17) mg/dL Creatinine 0.44 L (0.52-1.04) mg/dL Glucose 67 L (74-99) mg/dL Calcium 7.5 L (8.4-10.2) mg/dL Total Bilirubin 11.8 H (0.2-1.3) mg/dL AST 43 H (14-36) U/L Alkaline Phosphatase 194 H (38-126) U/L Total Protein 5.1 L (6.3-8.2) g/dL Albumin 1.9 L (3.5-5.0) g/dL Microbiology - Last 24 Hours (Table) 01/08/20 13:00 Blood Culture - Preliminary Blood No Growth after 120 hours <Kiko Bernard - Last Filed: 01/14/20 15:20> Subjective As above. Patient says her pain is improved currently. Bilirubin increased further. Possible MRCP for GI. Objective - Vital Signs Vital signs: Vital Signs Temp 99.5 F 01/14/20 11:14 Pulse 110 H 01/14/20 11:14 Resp 18 01/14/20 11:14 BP 97/55 01/14/20 11:14 Pulse Ox 98 01/14/20 11:14 Intake & Output 01/13/20 01/14/20 01/14/20 18:59 06:59 18:59 Intake Total 200 200 50 Balance 200 200 50 Weight 83 kg Intake: Intake, IV Titration 50 Amount Phytonadione 10 mg In 50 Sodium Chloride 0.9% 50 ml @ 100 mls/hr IVPB ONCE STA Rx#:[id number] Oral 200 200 Other: Voiding Method Incontinent Incontinent Incontinent # Voids 1 1 3 - Labs CBC & Chem 7: 01/14/20 06:14 01/14/20 06:14 Labs: Abnormal Lab Results - Last 24 Hours (Table) 01/14/20 01/14/20 01/14/20 Range/Units 06:14 06:14 09:42 RBC 2.71 L (3.80-5.40) m/uL Hgb 8.5 L (11.4-16.0) gm/dL Hct 27.5 L (34.0-46.0) % MCV 101.5 H (80.0-100.0) fL RDW 19.9 H (11.5-15.5) % PT 18.6 H (9.0-12.0) sec INR 1.9 H (<1.2) Sodium 134 L (137-145) mmol/L Potassium 3.4 L (3.5-5.1) mmol/L BUN <2 L (7-17) mg/dL Creatinine 0.44 L (0.52-1.04) mg/dL Glucose 67 L (74-99) mg/dL Calcium 7.5 L (8.4-10.2) mg/dL Total Bilirubin 11.8 H (0.2-1.3) mg/dL AST 43 H (14-36) U/L Alkaline Phosphatase 194 H (38-126) U/L Total Protein 5.1 L (6.3-8.2) g/dL Albumin 1.9 L (3.5-5.0) g/dL Microbiology - Last 24 Hours (Table) 01/08/20 13:00 Blood Culture - Preliminary Blood No Growth after 120 hours Assessment and Plan (1) Acalculous cholecystitis Current Visit: No Status: Acute Code(s): K81.9 - CHOLECYSTITIS, UNSPECIFIED SNOMED Code(s): 25626933
[2020-01-14] MEDS ORDERED: LORazepam 1 MG TAB PO PRN (11:08)
[2020-01-14 11:43] VITALS: BP 97/55; PULSE 110; TEMP 99.5
[2020-01-14] MEDS ORDERED: PHYTONADIONE 10 MG in SODIUM CHLORIDE 0.9% 50 ML IVPB STA (11:46)
--- NOTE | 2020-01-14 13:28 | P.PN ---
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 No signs of any respiratory distress, room air pulse ox is 96%, hemodynamically patient is stable, fever this afternoon, with a temp of 100.0F. Patient is or nonlabored, lung sounds are clear, diminished at the bases. Today's labs have been reviewed, showing with little, 6.0, hemoglobin of 6.9, sodium of 133, the rest of the electrolytes were within normal limits, BUN of less than 2, creatinine is 0.34. Patient will receive a unit of packed red blood cells today. Patient did report some epigastric discomfort apparently had some nausea, no vomiting. Surgery and GI services are following. Patient is on lactulose, antibiotics, and a form of Levaquin, she is on CIWA protocol, she is receiving thiamine replacement On 01/10/2020 patient seen in follow-up on selective care unit, she is much more alert and oriented today, no signs of delirium tremens, she is answering questions appropriately, she states she does not want to go to rehab for her chronic alcoholism, he prefers to go home with her parents. Appears to be in no acute distress, no signs of any respiratory distress, room air pulse ox is 97%, afebrile, hemodynamically stable, still slightly tachycardic, with a rate of 101 BPM, yesterday patient received a unit of blood for hemoglobin of 6.9, no obvious signs of bleeding, today's hemoglobin is 8.5, platelet count is 174, white count is normal at 6.9, INR is 1.7, serum sodium is 134, the rest of the electrolytes were within normal limits, BUN was less than 2, and creatinine was 0.34, liver enzymes are improving, bilirubin is 6.8, patient remains on oral metoprolol, antibiotics in the form of Levaquin and Flagyl, he is receiving lactulose. Blood culture has shown no growth. Surgery is following, patient is still complaining of some abdominal pain, receiving pain medications. No acute issues overnight. Social work is following, patient may need placement for [facility] for chronic alcoholism, however patient refuses to speak to social work coordinator. On 01/14/2020 patient is seen in follow-up on the general medical floor. Patient is awake and alert, she is quite withdrawn on today's exam, although she is oriented 3, appears to be in no acute distress. She is on room air, pulse ox is 98%, hemodynamically patient is stable, denies any fever or chills, denies any difficulty breathing, appears to still be jaundiced, today's labs have been reviewed showing white blood cell count of 9.7, hemoglobin is 8.5, INR is 1.9, sodium is 134, potassium 3.4, chloride is 102, B1 is less than 2, creatinine is 0.4, denies any nausea or vomiting. Surgery is following, patient is tolerating diet, there is some tenderness to the right and left upper quadrants with palpation, otherwise no acute distress, slightly tachycardia but afebrile. She is receiving morphine for pain control. Total bilirubin remains on the rise, and is up to 11.8 on today's labs. Objective - Vital Signs Vital signs: Vital Signs Temp 99.5 F 01/14/20 11:14 Pulse 110 H 01/14/20 11:14 Resp 18 01/14/20 11:14 BP 97/55 01/14/20 11:14 Pulse Ox 98 01/14/20 11:14 Intake & Output 01/13/20 01/14/20 01/14/20 18:59 06:59 18:59 Intake Total 200 200 Balance 200 200 Intake: Oral 200 200 Other: Voiding Method Incontinent Incontinent Incontinent # Voids 1 1 1 - Exam GENERAL EXAM: Awake and alert, jaundiced 29-year-old white female, sitting up on the edge of the bed, on room air, is quite withdrawn, slow to respond, but answering questions appropriately, she is oriented 3 HEAD: Normocephalic/atraumatic. EYES: Normal reaction of pupils, equal size. Conjunctiva pink, sclera white. NOSE: Clear with pink turbinates. THROAT: No erythema or exudates. NECK: No masses, no JVD, no thyroid enlargement, no adenopathy. CHEST: No chest wall deformity. Symmetrical expansion. LUNGS: Equal air entry with no crackles, wheeze, rhonchi or dullness. CVS: Regular rate and rhythm, normal S1 and S2, no gallops, no murmurs, no rubs ABDOMEN: Soft, nontender. No hepatosplenomegaly, normal bowel sounds, no guarding or rigidity. Mild tenderness in the epigastric area EXTREMITIES: No clubbing, no edema, no cyanosis, 2+ pulses and upper and lower extremities. MUSCULOSKELETAL: Muscle strength and tone normal. SPINE: No scoliosis or deformity SKIN: No rashes CENTRAL NERVOUS SYSTEM: Awake and alert, oriented 3, No focal deficits, tone is normal in all 4 extremities. - Labs CBC & Chem 7: 01/14/20 06:14 01/14/20 06:14 Labs: Abnormal Lab Results - Last 24 Hours (Table) 01/14/20 01/14/20 01/14/20 Range/Units 06:14 06:14 09:42 RBC 2.71 L (3.80-5.40) m/uL Hgb 8.5 L (11.4-16.0) gm/dL Hct 27.5 L (34.0-46.0) % MCV 101.5 H (80.0-100.0) fL RDW 19.9 H (11.5-15.5) % PT 18.6 H (9.0-12.0) sec INR 1.9 H (<1.2) Sodium 134 L (137-145) mmol/L Potassium 3.4 L (3.5-5.1) mmol/L BUN <2 L (7-17) mg/dL Creatinine 0.44 L (0.52-1.04) mg/dL Glucose 67 L (74-99) mg/dL Calcium 7.5 L (8.4-10.2) mg/dL Total Bilirubin 11.8 H (0.2-1.3) mg/dL AST 43 H (14-36) U/L Alkaline Phosphatase 194 H (38-126) U/L Total Protein 5.1 L (6.3-8.2) g/dL Albumin 1.9 L (3.5-5.0) g/dL Microbiology - Last 24 Hours (Table) 01/08/20 13:00 Blood Culture - Preliminary Blood No Growth after 120 hours Assessment and Plan Plan: Assessment: #1. History of chronic alcohol abuse with likely acute alcoholic hepatitis #2. History of alcoholic liver disease with chronic alcohol abuse and probable acute alcohol withdrawal syndrome #3. Rule out delirium tremens #4. Seizure disorder could be induced by alcohol withdrawal syndrome #5. Sinus tachycardia, related to acute alcohol syndrome #6. Lactic acidosis, resolved #7. Anemia of chronic disease #8. Hyperbilirubinemia, and on today's labs serum bilirubin is up to 11.8, surgical services are following #9. 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 No nausea or vomiting, no signs of delirium tremens. No difficulty breathing. Were told that the patient is being considered for discharge home by the nurse. I performed a history & physical examination of the patient and discussed their management with my nurse practitioner, Cecille Rios. I reviewed the nurse practitioner's note and agree with the documented findings and plan of care. Lung sounds are positive for diminished breath sounds at the bases. The findings and the impression was discussed with the patient. I attest to the documentation by the nurse practitioner. Time with Patient: Less than 30
[2020-01-14 15:02] VITALS: BMI 30.4
--- NOTE | 2020-01-14 15:11 | PN ---
PROGRESS NOTE DATE OF SERVICE: 01/14/2020 REASON FOR FOLLOWUP: Fever, possible acalculous cholecystitis. INTERVAL HISTORY: The patient is currently afebrile. The patient seemed to be feeling better. Still complaining of pain in the upper abdominal area but no worsening. No nausea, no vomiting. No chest pain, shortness of breath or cough. PHYSICAL EXAMINATION: Blood pressure 97/55 with a pulse of 110, temperature 98.5, she is 98% on room air. General description is a middle-aged female, up in the bed in no distress. RESPIRATORY SYSTEM: Unlabored breathing, clear to auscultation anteriorly. HEART: S1, S2. Regular rate and rhythm.. ABDOMEN: Soft, no tenderness. No guarding or rigidity. LABS: White count of 9.7, creatinine 0.44. Blood culture has been negative. DIAGNOSTIC IMPRESSION AND PLAN: Patient with a fever with multiple antibiotic allergies, possible abdominal source and a question of acalculous cholecystitis. Overall improvement. Levaquin to continue for about a week to finish a course of therapy. Continue supportive care. MMODL / IJN: [id number] /
--- NOTE | 2020-01-14 16:07 | P.DS ---
Providers Date of admission: 01/06/20 00:29 Expected date of discharge: 01/14/20 Attending physician: Vik Cheema Consults: 01/06/20 01:47 Consult Physician Routine Consulting Provider: Pippa Raphael Consult Reason/Comments: Bleeding, alcohol use Do you want consulting provider notified?: Yes Placement Type Exists?: Yes 01/06/20 04:14 Consult Physician Routine Consulting Provider: Liza Emerson Consult Reason/Comments: ICU management Do you want consulting provider notified?: Already Contacted 01/06/20 04:15 Consult Physician Routine Consulting Provider: Liza Emerson Consult Reason/Comments: ICU management Do you want consulting provider notified?: Already Contacted 01/08/20 11:12 Consult Physician Routine Consulting Provider: Kiko Bernard Consult Reason/Comments: abd pain, fever, cholecystitis Do you want consulting provider notified?: Yes 01/09/20 16:30 Consult Physician Routine Consulting Provider: Brenna Arndt Consult Reason/Comments: fever Do you want consulting provider notified?: Yes Primary care physician: Stated None Hospital Course: Final Diagnosis -Alcohol withdrawal, delirium tremens -Possible sepsis source of infection is unknown -Abdominal pain probably secondary to alcoholic gastritis -Acute alcoholic hepatitis with possibly of cirrhosis, ascites -Hyponatremia probably hypervolemic hyponatremia -ANEMIA APPEARS TO BE CHRONIC -Lactic acidosis secondary to liver failure, improved -Obstructive jaundice secondary to either alcoholic hepatitis or cirrhosis -Generalized weakness -DVT prophylaxis Discharge disposition Patient is being discharged in a stable condition with guarded prognosis to home. Patient instructed to follow-up with primary care provider along with surgery and GI in the outpatient setting. Patient strongly encouraged to go to [facility] for alcohol rehab although patient is refusing at this time. Patient will continue on a short course of oral antibiotics in the form of Levaquin for the next 5 days. Total time taken is 35 minutes. History of present illness This is a 29-year-old female who was recently admitted with abdominal pain, ascites, and alcohol withdrawals and was being closely monitored. Multiple medical consultations following. Patient's bilirubin continues to be elevated and is currently 11.8. Patient's INR is 1.9 with coagulopathy and given another dose of vitamin K 10 mg IV piggyback today. Patient was maintained on CIWA protocol and was transitioned oral today. Patient continues to have elevated liver functions along with hyponatremia. Patient did receive 1 unit of PRBCs for hemoglobin less than 7 during hospitalization. Patient was seen and evaluated by physical therapy as she has a 1-2 person assist due to severe weakness and unsteady gait recommending subacute rehab for strength and mobility although patient continues to refuse stating she'll be going home with her parents and once stabilized will be going to [facility] for alcohol rehab. GI recommended MRCP although patient is refusing to stay. During hospitalization patient continues to have severely poor oral intake mostly only drinking her ensures. Patient states she has no appetite here and will eat at home. Discussed with the patient at length about her drinking and how severe the situation is and patient states she is aware all per nursing staff boyfriend reported she will most likely be drinking tonight. Patient is a high risk for readmissions. Patient continues to be slightly tachycardic and will continue on metoprolol 12.5 mg twice daily. Patient was treated with IV antibiotics and will continue with Levaquin 500 mg daily for the next 5 days. Patient will need to follow-up with GI and surgery in the outpatient setting and also to establish with a primary care provider. Currently no reports of chest pain, palpitations, or shortness of breath. Patient is afebrile. No reports of nausea or vomiting and patient is tolerating diet minimally. Guarded prognosis On exam vital signs are stable. Temp is 99.5F, pulse is 110, respirations are 18, blood pressure 97/55, oxygen saturation is 98% on room air. Cardio S1, S2 are present. Respiratory shows diminished breath sounds with no wheezing or rhonchi noted. Abdomen is soft and mild tenderness noted of the right upper quadrant. Nervous system shows diffuse weakness. Please refer to medication reconciliation sheet for a list of medications. Patient Condition at Discharge: Poor Plan - Discharge Summary Discharge Rx Participant: Yes New Discharge Prescriptions: New Levofloxacin [Levaquin] 500 mg PO DAILY@1999 5 Days #5 tab Metoprolol Tartrate [Lopressor] 12.5 mg PO BID 30 Days #60 tab Multivitamins, Thera [Multivitamin (formulary)] 1 each PO DAILY 30 Days #30 tab Famotidine [Pepcid] 20 mg PO DAILY 30 Days #30 tab traMADol HCl [Ultram] 50 mg PO QID #12 tab Thiamine [Vitamin B-1] 100 mg PO BID-W/MEALS 30 Days #60 tab Continue levETIRAcetam [Keppra] 1,000 mg PO BID Ondansetron HCl [Zofran] 8 mg PO Q8HR PRN PRN Reason: Nausea Potassium Gluconate 99 mg PO DAILY Ascorbic Acid [Vitamin C] 1,000 mg PO DAILY traZODone HCL [Desyrel] 100 mg PO HS PRN PRN Reason: sleep Discontinued Dextroamphetamine/Amphetamine [Adderall] 20 mg PO TID PRN PRN Reason: ADHD Discharge Medication List levETIRAcetam [Keppra] 1,000 mg PO BID 06/17/19 [History] Ondansetron HCl [Zofran] 8 mg PO Q8HR PRN 11/28/19 [History] Ascorbic Acid [Vitamin C] 1,000 mg PO DAILY 01/06/20 [History] Potassium Gluconate 99 mg PO DAILY 01/06/20 [History] traZODone HCL [Desyrel] 100 mg PO HS PRN 01/06/20 [History] Famotidine [Pepcid] 20 mg PO DAILY 30 Days #30 tab 01/14/20 [Rx] Levofloxacin [Levaquin] 500 mg PO DAILY@1999 5 Days #5 tab 01/14/20 [Rx] Metoprolol Tartrate [Lopressor] 12.5 mg PO BID 30 Days #60 tab 01/14/20 [Rx] Multivitamins, Thera [Multivitamin (formulary)] 1 each PO DAILY 30 Days #30 tab 01/14/20 [Rx] Thiamine [Vitamin B-1] 100 mg PO BID-W/MEALS 30 Days #60 tab 01/14/20 [Rx] traMADol HCl [Ultram] 50 mg PO QID #12 tab 01/14/20 [Rx] Follow up Appointment(s)/Referral(s): Kiko Bernard MD [Medical Doctor] - 1 Week (patient instructed to make a follow up appointment with Dr. Bernard for one week- unable to get throught to the office) Jefry Hartley MD [STAFF PHYSICIAN] - 01/28/20 11:00 am (Come at 10:45 bring picture id and insurance card .) Ambulatory/Diagnostic Orders: Complete Blood Count w/diff [LAB.AMB] Time Frame: 2 Days, Location: None Selected Comprehensive Metabolic Panel [LAB.AMB] Time Frame: 2 Days, Location: None Selected Prothrombin Time INR [LAB.AMB] Time Frame: 2 Days, Location: None Selected Patient Instructions/Handouts: Metoprolol (By mouth), Famotidine (By mouth), Thiamine (By mouth), Multivitamins, Adult Formula (By mouth), Tramadol (By mouth), Levofloxacin (By mouth), Cirrhosis (DC), Abuse of Alcohol (DC), Ascites (DC) Activity/Diet/Wound Care/Special Instructions: -Activity Limited until follow-up -Follow-up with primary care provider upon discharge -Repeat labs in 2-3 days - see prescription -Continue current diet (low salt) -Follow-up with GI doctor (Dr. Hartley) in the outpatient setting -Follow-up with surgeon (Dr. Bernard) in the outpatient setting Avoid all alcohol intake -Follow-up with [facility] for rehab -Continue antibiotics for 5 days until finished Discharge Disposition: HOME SELF-CARE
== END 2020-01-14 17:35 | disposition home or self-care (01) | DRG 871 ==
LOC: 2SICU 01-06 00:29 → 3SCARD 01-07 15:42 → 5NMEDONC 01-12 16:59
PROVIDERS: ADMIT Internal Medicine; ATTEND Internal Medicine
PROC: 30233N1 Transfusion of Nonautologous Red Blood Cells into Peripheral Vein, Percutaneous Approach (ICD-10-PCS; principal; 2020-01-09)
DX: A41.9 Sepsis, unspecified organism (principal); K83.1 Obstruction of bile duct; F10.231 Alcohol dependence with withdrawal delirium; E87.2 Acidosis; D68.4 Acquired coagulation factor deficiency; E87.1 Hypo-osmolality and hyponatremia; J98.11 Atelectasis; D63.8 Anemia in other chronic diseases classified elsewhere; K70.31 Alcoholic cirrhosis of liver with ascites; K72.90 Hepatic failure, unspecified without coma; K81.9 Cholecystitis, unspecified; K70.11 Alcoholic hepatitis with ascites; K29.20 Alcoholic gastritis without bleeding; Z11.59 Encounter for screening for other viral diseases; E87.6 Hypokalemia; I10 Essential (primary) hypertension; G40.909 Epilepsy, unspecified, not intractable, without status epilepticus; F41.9 Anxiety disorder, unspecified; K76.0 Fatty (change of) liver, not elsewhere classified; K59.09 Other constipation; F90.9 Attention-deficit hyperactivity disorder, unspecified type; N92.0 Excessive and frequent menstruation with regular cycle; E87.70 Fluid overload, unspecified; K52.9 Noninfective gastroenteritis and colitis, unspecified; R26.81 Unsteadiness on feet; Z79.899 Other long term (current) drug therapy; Z71.41 Alcohol abuse counseling and surveillance of alcoholic; Z87.01 Personal history of pneumonia (recurrent); Z98.891 History of uterine scar from previous surgery; Z86.19 Personal history of other infectious and parasitic diseases; Z98.890 Other specified postprocedural states; Z87.891 Personal history of nicotine dependence; Z59.0 Homelessness; Z88.1 Allergy status to other antibiotic agents; Z88.0 Allergy status to penicillin
CPT/HCPCS: 71045; 74177; 76700; 80053; 81001; 82140; 82150; 82248; 83605; 83690; 84132; 84703; 85025; 85610; 86850; 86900; 86901; 86920; 87040

== ENCOUNTER 2020-01-16 11:36 | Emergency (ER) | payer OTHER ==
[2020-01-16 11:42] VITALS: TEMP 98.7
[2020-01-16] MEDS ORDERED: MORPHINE SULFATE 2 MG/ML SYRINGE IVP STA (11:56)
[2020-01-16] MEDS ORDERED: SODIUM CHLORIDE 0.9% 500 ML 500 ML IV STA (11:56)
[2020-01-16 12:16] LABS: Anisocytosis Moderate; Basophils # (A) 0.1 k/uL (0-0.2); Basophils % (A) 0 %; Eosinophils # (A) 0.2 k/uL (0-0.7); Eosinophils % (A) 1 %; HCT 27.2 % (34.0-46.0); HGB 8.8 gm/dL (11.4-16.0); Hypochromasia Moderate; Lymphocytes % (A) 7 %; MCH 31.6 pg (25.0-35.0); MCHC 32.4 g/dL (31.0-37.0); MCV 97.5 fL (80.0-100.0); Macrocytosis Moderate; Mean Platelet Volume 9.2; Monocytes # (A) 1.1 k/uL (0-1.0); Monocytes % (A) 7 %; Neutrophils # (A) 12.5 k/uL (1.3-7.7); Neutrophils % (A) 83 %; Platelet Count 239 k/uL (150-450); RBC 2.79 m/uL (3.80-5.40); RDW 20.3 % (11.5-15.5)
[2020-01-16 12:24] LABS: ALT 8 U/L (4-34); AST 45 U/L (14-36); African American GFR (CKD) >90 (>60 ml/min/1.73 sqM); Albumin 1.9 g/dL (3.5-5.0); Alcohol 62 mg/dL; Alkaline Phosphatase 169 U/L (38-126); Anion Gap 8 mmol/L; Bilirubin, Conjugated 8.3 mg/dL (0.0-0.3); Bilirubin, Delta 4.1 mg/dL (0.0-0.2); Bilirubin,Unconjugated 1.6 mg/dL (0.0-1.1); Blood Urea Nitrogen <2 mg/dL (7-17); Calcium 7.4 mg/dL (8.4-10.2); Carbon Dioxide 20 mmol/L (22-30); Chloride 102 mmol/L (98-107); Glucose 97 mg/dL (74-99); Non-African American GFR(CKD) >90 (>60 ml/min/1.73 sqM); Potassium 3.2 mmol/L (3.5-5.1); Sodium 130 mmol/L (137-145); Total Protein 5.4 g/dL (6.3-8.2)
[2020-01-16] MEDS ORDERED: LORazepam 2 MG/ML INJ IV PRN ×3 (12:46)
[2020-01-16] MEDS ORDERED: THIAMINE 100 MG/ML 2 ML VIAL IM STA (12:46)
[2020-01-16] MEDS ORDERED: SODIUM CHLORIDE 0.9% 500 ML 500 ML IV ONE ×2 (13:04→17:51)
--- NOTE | 2020-01-16 13:24 | US ---
EXAMINATION TYPE: US gallbladder DATE OF EXAM: 01/16/2020 COMPARISON: Ultrasound dated 01/07/[address] dated 01/08/2020 CLINICAL HISTORY: RUQ pa in. Abdominal pain, bloating, jaundice, nausea EXAM MEASUREMENTS: Liver Length: 26.0 cm Gallbladder Wall: 1.1 cm Right Kidney: 13.5 x 5.3 x 6.5 cm Pancreas: Obscured by bowel gas Liver: Enlarged. There is increased echogenicity of the hepatic parenchyma with diminished visualiza tion of the portal triads most commonly relating to hepatic steatosis although Budd-Chiari syndrome w as suggested on the prior CT, limiting evaluation for underlying hepatic masses. Gallbladder: thickened wall, pericholecystic fluid noted Evidence for sonographic Nguyễn's sign: yes CBD: obscured Right Kidney: no evidence of hydronephrosis Ascites noted Splenomegaly as the spleen measures 17.3 cm. IMPRESSION: 1. Sonographic findings are again compatible with acute cholecystitis as there is gallbladder wall th ickening and pericholecystic fluid is seen on the prior of 01/07/2020. Abdominal ascites is also again seen. Common bile duct is obscured at this time however was dilated on the prior ultrasound. 2. Splenomegaly is incidentally noted. 3. Heterogenous echotexture of the liver and hepatomegaly. Budd-Chiari syndrome is suggested on the p rior CT of 01/08/2020. 4. Obscuration of the pancreas and common bile duct by overlying bowel gas.
[2020-01-16 13:32] VITALS: RESP 16
[2020-01-16] MEDS ORDERED: KETOROLAC 30 MG/ML 1 ML VIAL IVP STA (13:40)
[2020-01-16] MEDS ORDERED: LEVOFLOXACIN 750MG-D5W PMX 750 MG in DEXTROSE/WATER 1 150ML.BAG IVPB STA (13:40)
--- NOTE | 2020-01-16 13:44 | ED ---
General Adult HPI - General Chief complaint: Abdominal Pain Stated complaint: Abd pain Time Seen by Provider: 01/16/20 11:41 Source: EMS, RN notes reviewed, old records reviewed Mode of arrival: EMS Limitations: no limitations - History of Present Illness Initial comments: 29-year-old female patient past history significant for daily alcohol abuse, liver cirrhosis presents to ED for chief complaint of right upper quadrant abdominal pain. Patient wants that she was recently discharged in the pain has been persistent. She states that she feels generally weak. Denies any other complaints at this time. - Related Data Home Medications Medication Instructions Recorded Confirmed levETIRAcetam [Keppra] 1,000 mg PO BID 06/17/19 01/06/20 Ondansetron HCl [Zofran] 8 mg PO Q8HR PRN 11/28/19 01/06/20 Ascorbic Acid [Vitamin C] 1,000 mg PO DAILY 01/06/20 01/06/20 Potassium Gluconate 99 mg PO DAILY 01/06/20 01/06/20 traZODone HCL [Desyrel] 100 mg PO HS PRN 01/06/20 01/06/20 Previous Rx's Medication Instructions Recorded Famotidine [Pepcid] 20 mg PO DAILY 30 Days #30 tab 01/14/20 Levofloxacin [Levaquin] 500 mg PO DAILY@2000 5 Days #5 tab 01/14/20 Metoprolol Tartrate [Lopressor] 12.5 mg PO BID 30 Days #60 tab 01/14/20 Multivitamins, Thera [Multivitamin 1 each PO DAILY 30 Days #30 tab 01/14/20 (formulary)] Thiamine [Vitamin B-1] 100 mg PO BID-W/MEALS 30 Days #60 01/14/20 tab traMADol HCl [Ultram] 50 mg PO QID #12 tab 01/14/20 Allergies Allergy/AdvReac Type Severity Reaction Status Date / Time ceftriaxone Allergy Anaphylaxis Verified 01/06/20 09:33 Penicillins Allergy Rash/Hives Verified 01/06/20 09:33 Review of Systems ROS Statement: Those systems with pertinent positive or pertinent negative responses have been documented in the HPI. ROS Other: All systems not noted in ROS Statement are negative. Past Medical History Past Medical History: Liver Disease, Pneumonia, Seizure Disorder Additional Past Medical History / Comment(s): Past obstetrical history signi ficant for 1 section for failure to progress. ETOH abuse. Bronchitis, Sepsis (2014) History of Any Multi-Drug Resistant Organisms: None Reported Past Surgical History: Section, Orthopedic Surgery Additional Past Surgical History / Comment(s): 2 rt foot sx in past Past Anesthesia/Blood Transfusion Reactions: Motion Sickness Past Psychological History: ADD/ADHD, Anxiety Smoking Status: Former smoker Past Alcohol Use History: Abuse, Daily Past Drug Use History: None Reported - Past Family History Father Family Medical History: No Reported History Mother Family Medical History: No Reported History General Exam - General Exam Comments Initial Comments: Constitutional: NAD, AOX3, Pt has pleasant affect. HEENT: NC/AT, trachea midline, neck supple, no lymphadenopathy. Posterior pharynx non erythematous, without exudates. External ears appear normal, without discharge. Mucous membranes moist. Eyes PERRLA, EOM intact. There is scleral icterus. Cardiopulmonary: RRR, no murmurs, rubs or gallops, no JVD noted. Lungs CTAB in anterior and posterior lovell. No peripheral edema. Abdominal exam: Abdomen is moderately-distended. Abdomen moderately tender to palpation and right upper quadrant and left upper quadrant region. Bowel sounds active in LLQ. Neuro: CN II-XII grossly intact. No nuchal rigidity. No raccon eyes, no razo sign, no hemotympanum. No cervical spinal tenderness. MSK: No posterior calf tenderness bilaterally, homans sign negative bilaterally. Posterior tibialis and radial pulse +2 bilaterally. Sensation intact in upper and lower extremities. Full active ROM in upper and lower extremities, 5/5 stregnth. Limitations: no limitations Course Vital Signs 01/16/20 01/16/20 01/16/20 11:38 11:42 12:20 Temperature 98.7 F Pulse Rate 92 90 79 Respiratory 6 L 16 20 Rate Blood Pressure 86/63 90/57 86/61 O2 Sat by Pulse 97 97 97 Oximetry 01/16/20 01/16/20 01/16/20 13:32 14:00 16:36 Temperature Pulse Rate 91 90 93 Respiratory 16 16 16 Rate Blood Pressure 100/63 105/68 111/58 O2 Sat by Pulse 97 93 L 99 Oximetry Procedures - [place] Protocol (Time Out) Nurse: Gwendolyn Peterson Medical Decision Making - Medical Decision Making 29-year-old female patient past history significant for daily alcohol abuse, liver cirrhosis presents to ED for chief complaint of right upper quadrant abdominal pain. Patient wants that she was recently discharged in the pain has been persistent. She states that she feels generally weak. Denies any other complaints at this time. Patient will tender stable, afebrile. Physical exam doesn't display significant jaundice and right upper quadrant tenderness. Laboratory investigations are obtained, leukocytosis of 15.0. Patient does have INR of 1.7. Potassium of 3.2. Lactic acid of 3.2, reflex 2.3. Patient was administered fluid bolus. Bilirubin is 14. Alcohol is 62. Ultrasound is compatible with acute cholecystitis. Abdominal ascites. Splenomegaly. Heterogenous echotexture of the liver and hepatomegaly. General surgeon in this facility Dr. Bernard declines this case. Patient will be transferred to [facility] where she was previously seen. Accepting physician Dr. Griffin, pt was initiated on levaquin due to allergies. Csae discussed with Dr. Andrews. - Lab Data Result diagrams: 01/16/20 11:46 01/16/20 11:46 Lab Results 01/16/20 01/16/20 01/16/20 Range/Units 11:46 11:46 11:46 WBC 15.0 H (3.8-10.6) k/uL RBC 2.79 L (3.80-5.40) m/uL Hgb 8.8 L (11.4-16.0) gm/dL Hct 27.2 L (34.0-46.0) % MCV 97.5 (80.0-100.0) fL MCH 31.6 (25.0-35.0) pg MCHC 32.4 (31.0-37.0) g/dL RDW 20.3 H (11.5-15.5) % Plt Count 239 (150-450) k/uL Neutrophils % 83 % Lymphocytes % 7 % Monocytes % 7 % Eosinophils % 1 % Basophils % 0 % Neutrophils # 12.5 H (1.3-7.7) k/uL Lymphocytes # 1.0 (1.0-4.8) k/uL Monocytes # 1.1 H (0-1.0) k/uL Eosinophils # 0.2 (0-0.7) k/uL Basophils # 0.1 (0-0.2) k/uL Hypochromasia Moderate Anisocytosis Moderate Macrocytosis Moderate PT (9.0-12.0) sec INR (<1.2) APTT (22.0-30.0) sec Sodium 130 L (137-145) mmol/L Potassium 3.2 L (3.5-5.1) mmol/L Chloride 102 (98-107) mmol/L Carbon Dioxide 20 L (22-30) mmol/L Anion Gap 8 mmol/L BUN <2 L (7-17) mg/dL Creatinine 0.43 L (0.52-1.04) mg/dL Est GFR (CKD-EPI)AfAm >90 (>60 ml/min/1.73 sqM) Est GFR (CKD-EPI)NonAf >90 (>60 ml/min/1.73 sqM) Glucose 97 (74-99) mg/dL Lactic Ac Sepsis Rflx Plasma Lactic Acid John 3.2 H* (0.7-2.0) mmol/L Calcium 7.4 L (8.4-10.2) mg/dL Total Bilirubin 14.0 H (0.2-1.3) mg/dL Conjugated Bilirubin 8.3 H (0.0-0.3) mg/dL Unconjugated Bilirubin 1.6 H (0.0-1.1) mg/dL Delta Bilirubin 4.1 H (0.0-0.2) mg/dL AST 45 H (14-36) U/L ALT 8 (4-34) U/L Alkaline Phosphatase 169 H (38-126) U/L Total Protein 5.4 L (6.3-8.2) g/dL Albumin 1.9 L (3.5-5.0) g/dL Lipase 18 L (23-300) U/L HCG, Qual Urine Color Urine Appearance (Clear) Urine pH (5.0-8.0) Ur Specific [place] (1.001-1.035) Urine Protein (Negative) Urine Glucose (UA) (Negative) Urine Ketones (Negative) Urine Blood (Negative) Urine Nitrite (Negative) Urine Bilirubin (Negative) Urine Urobilinogen (<2.0) mg/dL Ur Leukocyte Esterase (Negative) Urine RBC (0-5) /hpf Urine WBC (0-5) /hpf Ur Squamous Epith Cells (0-4) /hpf Urine Bacteria (None) /hpf Hyaline Casts (0-2) /lpf Granular Casts (0) /lpf Urine Mucus (None) /hpf Urine HCG, Qual (Not Detectd) Urine Opiates Screen (NotDetected) Ur Oxycodone Screen (NotDetected) Urine Methadone Screen (NotDetected) Ur Propoxyphene Screen (NotDetected) Ur Barbiturates Screen (NotDetected) U Tricyclic Antidepress (NotDetected) Ur Phencyclidine Scrn (NotDetected) Ur Amphetamines Screen (NotDetected) U Methamphetamines Scrn (NotDetected) U Benzodiazepines Scrn (NotDetected) Urine Cocaine Screen (NotDetected) U Marijuana (THC) Screen (NotDetected) Serum Alcohol 62 mg/dL 01/16/20 01/16/20 01/16/20 Range/Units 11:46 11:46 12:27 WBC (3.8-10.6) k/uL RBC (3.80-5.40) m/uL Hgb (11.4-16.0) gm/dL Hct (34.0-46.0) % MCV (80.0-100.0) fL MCH (25.0-35.0) pg MCHC (31.0-37.0) g/dL RDW (11.5-15.5) % Plt Count (150-450) k/uL Neutrophils % % Lymphocytes % % Monocytes % % Eosinophils % % Basophils % % Neutrophils # (1.3-7.7) k/uL Lymphocytes # (1.0-4.8) k/uL Monocytes # (0-1.0) k/uL Eosinophils # (0-0.7) k/uL Basophils # (0-0.2) k/uL Hypochromasia Anisocytosis Macrocytosis PT 16.6 H (9.0-12.0) sec INR 1.7 H (<1.2) APTT 36.2 H (22.0-30.0) sec Sodium (137-145) mmol/L Potassium (3.5-5.1) mmol/L Chloride (98-107) mmol/L Carbon Dioxide (22-30) mmol/L Anion Gap mmol/L BUN (7-17) mg/dL Creatinine (0.52-1.04) mg/dL Est GFR (CKD-EPI)AfAm (>60 ml/min/1.73 sqM) Est GFR (CKD-EPI)NonAf (>60 ml/min/1.73 sqM) Glucose (74-99) mg/dL Lactic Ac Sepsis Rflx Y Plasma Lactic Acid John (0.7-2.0) mmol/L Calcium (8.4-10.2) mg/dL Total Bilirubin (0.2-1.3) mg/dL Conjugated Bilirubin (0.0-0.3) mg/dL Unconjugated Bilirubin (0.0-1.1) mg/dL Delta Bilirubin (0.0-0.2) mg/dL AST (14-36) U/L ALT (4-34) U/L Alkaline Phosphatase (38-126) U/L Total Protein (6.3-8.2) g/dL Albumin (3.5-5.0) g/dL Lipase (23-300) U/L HCG, Qual Not Detected Urine Color Urine Appearance (Clear) Urine pH (5.0-8.0) Ur Specific [place] (1.001-1.035) Urine Protein (Negative) Urine Glucose (UA) (Negative) Urine Ketones (Negative) Urine Blood (Negative) Urine Nitrite (Negative) Urine Bilirubin (Negative) Urine Urobilinogen (<2.0) mg/dL Ur Leukocyte Esterase (Negative) Urine RBC (0-5) /hpf Urine WBC (0-5) /hpf Ur Squamous Epith Cells (0-4) /hpf Urine Bacteria (None) /hpf Hyaline Casts (0-2) /lpf Granular Casts (0) /lpf Urine Mucus (None) /hpf Urine HCG, Qual (Not Detectd) Urine Opiates Screen (NotDetected) Ur Oxycodone Screen (NotDetected) Urine Methadone Screen (NotDetected) Ur Propoxyphene Screen (NotDetected) Ur Barbiturates Screen (NotDetected) U Tricyclic Antidepress (NotDetected) Ur Phencyclidine Scrn (NotDetected) Ur Amphetamines Screen (NotDetected) U Methamphetamines Scrn (NotDetected) U Benzodiazepines Scrn (NotDetected) Urine Cocaine Screen (NotDetected) U Marijuana (THC) Screen (NotDetected) Serum Alcohol mg/dL 01/16/20 01/16/20 01/16/20 Range/Units 15:14 15:15 15:19 WBC (3.8-10.6) k/uL RBC (3.80-5.40) m/uL Hgb (11.4-16.0) gm/dL Hct (34.0-46.0) % MCV (80.0-100.0) fL MCH (25.0-35.0) pg MCHC (31.0-37.0) g/dL RDW (11.5-15.5) % Plt Count (150-450) k/uL Neutrophils % % Lymphocytes % % Monocytes % % Eosinophils % % Basophils % % Neutrophils # (1.3-7.7) k/uL Lymphocytes # (1.0-4.8) k/uL Monocytes # (0-1.0) k/uL Eosinophils # (0-0.7) k/uL Basophils # (0-0.2) k/uL Hypochromasia Anisocytosis Macrocytosis PT (9.0-12.0) sec INR (<1.2) APTT (22.0-30.0) sec Sodium (137-145) mmol/L Potassium (3.5-5.1) mmol/L Chloride (98-107) mmol/L Carbon Dioxide (22-30) mmol/L Anion Gap mmol/L BUN (7-17) mg/dL Creatinine (0.52-1.04) mg/dL Est GFR (CKD-EPI)AfAm (>60 ml/min/1.73 sqM) Est GFR (CKD-EPI)NonAf (>60 ml/min/1.73 sqM) Glucose (74-99) mg/dL Lactic Ac Sepsis Rflx Plasma Lactic Acid John 2.3 H* (0.7-2.0) mmol/L Calcium (8.4-10.2) mg/dL Total Bilirubin (0.2-1.3) mg/dL Conjugated Bilirubin (0.0-0.3) mg/dL Unconjugated Bilirubin (0.0-1.1) mg/dL Delta Bilirubin (0.0-0.2) mg/dL AST (14-36) U/L ALT (4-34) U/L Alkaline Phosphatase (38-126) U/L Total Protein (6.3-8.2) g/dL Albumin (3.5-5.0) g/dL Lipase (23-300) U/L HCG, Qual Urine Color Dark Brown Urine Appearance Cloudy H (Clear) Urine pH 6.5 (5.0-8.0) Ur Specific [place] 1.017 (1.001-1.035) Urine Protein Trace H (Negative) Urine Glucose (UA) Negative (Negative) Urine Ketones Negative (Negative) Urine Blood Negative (Negative) Urine Nitrite Negative (Negative) Urine Bilirubin 4+ H (Negative) Urine Urobilinogen 2.0 (<2.0) mg/dL Ur Leukocyte Esterase Small H (Negative) Urine RBC 2 (0-5) /hpf Urine WBC 3 (0-5) /hpf Ur Squamous Epith Cells 15 H (0-4) /hpf Urine Bacteria Many H (None) /hpf Hyaline Casts 2 (0-2) /lpf Granular Casts 8 (0) /lpf Urine Mucus Many H (None) /hpf Urine HCG, Qual Not Detected (Not Detectd) Urine Opiates Screen Detected H (NotDetected) Ur Oxycodone Screen Not Detected (NotDetected) Urine Methadone Screen Not Detected (NotDetected) Ur Propoxyphene Screen Not Detected (NotDetected) Ur Barbiturates Screen Not Detected (NotDetected) U Tricyclic Antidepress Not Detected (NotDetected) Ur Phencyclidine Scrn Not Detected (NotDetected) Ur Amphetamines Screen Not Detected (NotDetected) U Methamphetamines Scrn Not Detected (NotDetected) U Benzodiazepines Scrn Detected H (NotDetected) Urine Cocaine Screen Not Detected (NotDetected) U Marijuana (THC) Screen Not Detected (NotDetected) Serum Alcohol mg/dL Disposition Clinical Impression: Liver failure, Acute cholecystitis, Hyperbilirubinemia Disposition: OTHER INSTITUTION NOT DEFINED Condition: Serious Is patient prescribed a controlled substance at d/c from ED?: No Referrals: Dede Harmon MD [Primary Care Provider] - 1-2 days - Out of Hospital Transfer - Req. Specs Out of Hospital Transfer - Requested Specifics: Other Emergency Center ([facility])
[2020-01-16] MEDS ORDERED: MORPHINE SULFATE 4 MG/ML SYRINGE IV STA (13:50)
[2020-01-16 15:25] LABS: INR 1.7 (<1.2); Partial Thromboplastin Time 36.2 sec (22.0-30.0); Prothrombin Time 16.6 sec (9.0-12.0)
[2020-01-16 15:41] LABS: Appearance,Urine Cloudy (Clear); Bacteria,Urine Many /hpf; Bilirubin,Urine 4+ (Negative); Blood,Urine Negative (Negative); Color,Urine Dark Brown; Glucose,Urine (UA) Negative (Negative); Granular Casts,Urine 8 /lpf (0); Hyaline Casts,Urine 2 /lpf (0-2); Ketones,Urine Negative (Negative); Leukocyte Esterase,Urine Small (Negative); Mucus,Urine Many /hpf; Nitrite,Urine Negative (Negative); PH, Urine 6.5 (5.0-8.0); Protein,Urine Trace (Negative); RBC,Urine 2 /hpf (0-5); Specific Gravity,Urine 1.017 (1.001-1.035); Squamous Epithelial Cell,Urine 15 /hpf (0-4); WBC,Urine 3 /hpf (0-5)
[2020-01-16 15:53] LABS: Amphetamine Screen,Urine Not Detected (NotDetected); Barbiturate Screen,Urine Not Detected (NotDetected); Benzodiazepines Screen,Urine Detected (NotDetected); Cocaine Screen,Urine Not Detected (NotDetected); Methadone Screen, Urine Not Detected (NotDetected); Opiate Screen,Urine Detected (NotDetected); Oxycodone Screen, Urine Not Detected (NotDetected); Phencyclidine Screen,Urine Not Detected (NotDetected); Tricyclic Antidepressant,Urine Not Detected (NotDetected); Urn Cannabinoid Scrn Not Detected (NotDetected)
[2020-01-16] MEDS ORDERED: THIAMINE 100 MG TAB PO SCH (17:30)
[2020-01-16] MEDS ORDERED: levETIRAcetam 500 MG TAB PO SCH (17:45)
[2020-01-16 17:50] VITALS: BP 130/90; PULSE 86
[2020-01-16] MEDS ORDERED: LORazepam 2 MG/ML INJ IV STA (17:51)
== END 2020-01-16 18:44 | disposition other institution (70) ==
LOC: EC 11:36
DX: K72.90 Hepatic failure, unspecified without coma (principal); K81.0 Acute cholecystitis; E80.6 Other disorders of bilirubin metabolism; G40.909 Epilepsy, unspecified, not intractable, without status epilepticus; F41.9 Anxiety disorder, unspecified; Z79.899 Other long term (current) drug therapy; Z88.0 Allergy status to penicillin; Z88.1 Allergy status to other antibiotic agents; Z87.891 Personal history of nicotine dependence
CPT/HCPCS: 36415; 93005; 80053; 82248; 83605; 83690; 85025; 85610; 85730; 81001; 81025; 84703; 87040; 80306; 76705; 99285; 96365; 96375; 96361 ×2; G0480; J2270; J1956; 80320

== ENCOUNTER 2020-02-09 23:28 | Inpatient (IN) | payer OTHER ==
[2020-02-09] MEDS ORDERED: MORPHINE SULFATE 4 MG/ML SYRINGE IV STA (23:44)
[2020-02-09] MEDS ORDERED: PANTOPRAZOLE 40 MG/10 ML VIAL IVP STA (23:44)
[2020-02-09] MEDS ORDERED: ONDANSETRON 4 MG/2 ML VIAL IVP STA (23:44)
[2020-02-10 00:30] LABS: Anisocytosis Moderate; Basophils % (A) 0 %; Eosinophils # (A) 0.3 k/uL (0-0.7); Eosinophils % (A) 2 %; HCT 26.5 % (34.0-46.0); HGB 8.2 gm/dL (11.4-16.0); Hypochromasia Marked; Lymphocytes % (A) 6 %; MCH 31.1 pg (25.0-35.0); MCV 100.4 fL (80.0-100.0); Macrocytosis Moderate; Mean Platelet Volume 7.9; Monocytes # (A) 0.9 k/uL (0-1.0); Monocytes % (A) 6 %; Neutrophils # (A) 14.2 k/uL (1.3-7.7); Neutrophils % (A) 85 %; Platelet Count 257 k/uL (150-450); RBC 2.64 m/uL (3.80-5.40); RDW 20.1 % (11.5-15.5); WBC 16.7 k/uL (3.8-10.6)
--- NOTE | 2020-02-10 00:31 | XR ---
EXAMINATION TYPE: XR KUB DATE OF EXAM: 02/10/2020 COMPARISON: 11/29/2019 HISTORY: Abdominal pain. Fluid retention. TECHNIQUE: 2 views upright FINDINGS: There is increased density over the abdomen suggestive of abdominal ascites. There is no si gn of free air. There is no evidence of a bowel obstruction. There is slight blunting of the costophr enic angles. There are no pathologic calcifications over the kidneys. IMPRESSION: Abdominal ascites. Small pleural effusions. No bowel obstruction. Abnormalities appear ne w compared to recent exam.
--- NOTE | 2020-02-10 00:38 | ED ---
Abdominal Pain HPI - General Chief Complaint: Abdominal Pain Stated Complaint: Retaining fluid Time Seen by Provider: 02/09/20 23:30 Source: EMS, RN notes reviewed, old records reviewed Mode of arrival: EMS Limitations: no limitations - History of Present Illness Initial Comments: This is a 29-year-old female DF for evaluation patient severe distress of chronic disease, patient states she does not feel well. Is nauseous with abdominal pain diffuse diffuse abdominal fullness. Patient denies any fevers no nausea vomiting currently, no diarrhea MD Complaint: abdominal pain -: days(s) Location: diffuse Radiation: epigastric, suprapubic Migration to: no migration Severity: moderate Severity scale (1-10): 7 Consistency: constant Improves With: nothing Worsens With: nothing Context: other (History of same secondary to cirrhosis) Associated Symptoms: nausea - Related Data Home Medications Medication Instructions Recorded Confirmed Folic Acid 1 mg PO DAILY 02/10/20 02/10/20 Lactulose 30 gm PO QID 02/10/20 02/10/20 Midodrine [ProAmatine] 5 mg PO TID-W/MEALS 02/10/20 02/10/20 Ondansetron HCl [Zofran] 4 mg PO Q12H PRN 02/10/20 02/10/20 Pantoprazole [Protonix] 40 mg PO DAILY PRN 02/10/20 02/10/20 Spironolactone [Aldactone] 25 mg PO DAILY 02/10/20 02/10/20 Thiamine [Vitamin B-1] 100 mg PO DAILY 02/10/20 02/10/20 levETIRAcetam [Keppra] 750 mg PO BID 02/10/20 02/10/20 oxyCODONE HCL [OxyIR] 5 mg PO Q6H PRN 02/10/20 02/10/20 Allergies Allergy/AdvReac Type Severity Reaction Status Date / Time ceftriaxone Allergy Anaphylaxis Verified 02/10/20 09:14 Penicillins Allergy Rash/Hives Verified 02/10/20 09:14 Review of Systems ROS Statement: Those systems with pertinent positive or pertinent negative responses have been documented in the HPI. ROS Other: All systems not noted in ROS Statement are negative. Past Medical History Past Medical History: Liver Disease, Pneumonia, Seizure Disorder Additional Past Medical History / Comment(s): Past obstetrical history significant for 1 section for failure to progress. ETOH abuse. Bronchitis, Sepsis (2013) History of Any Multi-Drug Resistant Organisms: None Reported Past Surgical History: Section, Orthopedic Surgery Additional Past Surgical History / Comment(s): 2 rt foot sx in past Past Anesthesia/Blood Transfusion Reactions: Motion Sickness Past Psychological History: ADD/ADHD, Anxiety Smoking Status: Former smoker Past Alcohol Use History: Abuse, Daily Past Drug Use History: None Reported - Past Family History Father Family Medical History: No Reported History Mother Family Medical History: No Reported History General Exam Limitations: no limitations General appearance: alert, in no apparent distress Head exam: Present: atraumatic, normocephalic, normal inspection Eye exam: Present: normal appearance, PERRL, EOMI. Absent: scleral icterus, c onjunctival injection, periorbital swelling ENT exam: Present: normal exam, mucous membranes moist Neck exam: Present: normal inspection. Absent: tenderness, meningismus, lymphadenopathy Respiratory exam: Present: normal lung sounds bilaterally. Absent: respiratory distress, wheezes, rales, rhonchi, stridor Cardiovascular Exam: Present: normal rhythm, tachycardia, normal heart sounds. Absent: systolic murmur, diastolic murmur, rubs, gallop, clicks GI/Abdominal exam: Present: soft, distended, tenderness, guarding (Ascites), normal bowel sounds. Absent: rebound, rigid Extremities exam: Present: normal inspection, full ROM, normal capillary refill. Absent: tenderness, pedal edema, joint swelling, calf tenderness Back exam: Present: normal inspection Neurological exam: Present: alert, oriented X3, CN II-XII intact Psychiatric exam: Present: normal affect, normal mood Skin exam: Present: warm, dry, intact, normal color. Absent: rash Course Vital Signs 02/09/20 02/10/20 02/10/20 23:33 01:26 03:17 Temperature 98.1 F Pulse Rate 112 H 106 H 102 H Pulse Rate [ Pulse Oximetery ] Respiratory 18 18 18 Rate Blood Pressure 112/78 114/59 105/60 Blood Pressure [Left Arm] O2 Sat by Pulse 100 98 100 Oximetry 02/10/20 02/10/20 02/10/20 04:39 07:00 10:25 Temperature 98 F Pulse Rate 90 100 Pulse Rate [ 101 H Pulse Oximetery ] Respiratory 18 18 16 Rate Blood Pressure 110/70 110/61 Blood Pressure 111/74 [Left Arm] O2 Sat by Pulse 100 98 100 Oximetry 02/10/20 02/10/20 02/10/20 10:43 11:00 11:20 Temperature Pulse Rate Pulse Rate [ 102 H 101 H 102 H Pulse Oximetery ] Respiratory 16 18 16 Rate Blood Pressure Blood Pressure 103/73 106/69 109/71 [Left Arm] O2 Sat by Pulse 100 100 100 Oximetry 02/10/20 02/10/20 15:28 18:27 Temperature 98.0 F 98.4 F Pulse Rate 78 Pulse Rate [ 105 H Pulse Oximetery ] Respiratory 18 18 Rate Blood Pressure 98/52 Blood Pressure 104/62 [Left Arm] O2 Sat by Pulse 98 100 Oximetry - Reevaluation(s) Reevaluation #1: 02/10/20 05:17 Medical history is reviewed Reevaluation #2: 02/10/20 05:17 Patient has been transfer prior to [facility] for evaluation they deemed her unnecessary for gallbladder removal or to high risk for gallbladder removal the patient still having pain - Consultations Consultation #1: spoke with Dr. Edwardo dacosta ultrasound regarding possibility of admission or transfer Medical Decision Making - Medical Decision Making 29 female persistent liver cirrhosis and ascites, patient does a therapeutic paracentesis, - Lab Data Result diagrams: 02/09/20 23:59 02/10/20 23:08 Lab Results 02/09/20 02/09/20 02/09/20 Range/Units 23:59 23:59 23:59 WBC 16.7 H (3.8-10.6) k/uL RBC 2.64 L (3.80-5.40) m/uL Hgb 8.2 L (11.4-16.0) gm/dL Hct 26.5 L (34.0-46.0) % MCV 100.4 H (80.0-100.0) fL MCH 31.1 (25.0-35.0) pg MCHC 31.0 (31.0-37.0) g/dL RDW 20.1 H (11.5-15.5) % Plt Count 257 (150-450) k/uL Neutrophils % 85 % Lymphocytes % 6 % Monocytes % 6 % Eosinophils % 2 % Basophils % 0 % Neutrophils # 14.2 H (1.3-7.7) k/uL Lymphocytes # 1.0 (1.0-4.8) k/uL Monocytes # 0.9 (0-1.0) k/uL Eosinophils # 0.3 (0-0.7) k/uL Basophils # 0.0 (0-0.2) k/uL Hypochromasia Marked Anisocytosis Moderate Macrocytosis Moderate PT 19.2 H (9.0-12.0) sec INR 2.0 H (<1.2) APTT 48.9 H (22.0-30.0) sec Sodium 134 L (137-145) mmol/L Potassium 2.9 L (3.5-5.1) mmol/L Chloride 101 (98-107) mmol/L Carbon Dioxide 19 L (22-30) mmol/L Anion Gap 14 mmol/L BUN 3 L (7-17) mg/dL Creatinine 0.77 (0.52-1.04) mg/dL Est GFR (CKD-EPI)AfAm >90 (>60 ml/min/1.73 sqM) Est GFR (CKD-EPI)NonAf >90 (>60 ml/min/1.73 sqM) Glucose 95 (74-99) mg/dL Lactic Ac Sepsis Rflx Plasma Lactic Acid John (0.7-2.0) mmol/L Calcium 8.3 L (8.4-10.2) mg/dL Phosphorus 5.1 H (2.5-4.5) mg/dL Total Bilirubin 20.4 H* (0.2-1.3) mg/dL AST 97 H (14-36) U/L ALT 17 (4-34) U/L Alkaline Phosphatase 263 H (38-126) U/L Ammonia (<30) umol/L Creatine Kinase 32 (30-135) U/L Total Protein 6.8 (6.3-8.2) g/dL Albumin 2.9 L (3.5-5.0) g/dL Amylase 48 (30-110) U/L Lipase 153 (23-300) U/L Urine Color Urine Appearance (Clear) Urine pH (5.0-8.0) Ur Specific Carpenter (1.001-1.035) Urine Protein (Negative) Urine Glucose (UA) (Negative) Urine Ketones (Negative) Urine Blood (Negative) Urine Nitrite (Negative) Urine Bilirubin (Negative) Urine Urobilinogen (<2.0) mg/dL Ur Leukocyte Esterase (Negative) Urine RBC (0-5) /hpf Urine WBC (0-5) /hpf Ur Squamous Epith Cells (0-4) /hpf Urine Bacteria (None) /hpf Urine Mucus (None) /hpf Serum Alcohol <10 mg/dL Coronavirus (PCR) (Not Detected) 02/09/20 02/10/20 02/10/20 Range/Units 23:59 00:32 00:46 WBC (3.8-10.6) k/uL RBC (3.80-5.40) m/uL Hgb (11.4-16.0) gm/dL Hct (34.0-46.0) % MCV (80.0-100.0) fL MCH (25.0-35.0) pg MCHC (31.0-37.0) g/dL RDW (11.5-15.5) % Plt Count (150-450) k/uL Neutrophils % % Lymphocytes % % Monocytes % % Eosinophils % % Basophils % % Neutrophils # (1.3-7.7) k/uL Lymphocytes # (1.0-4.8) k/uL Monocytes # (0-1.0) k/uL Eosinophils # (0-0.7) k/uL Basophils # (0-0.2) k/uL Hypochromasia Anisocytosis Macrocytosis PT (9.0-12.0) sec INR (<1.2) APTT (22.0-30.0) sec Sodium (137-145) mmol/L Potassium (3.5-5.1) mmol/L Chloride (98-107) mmol/L Carbon Dioxide (22-30) mmol/L Anion Gap mmol/L BUN (7-17) mg/dL Creatinine (0.52-1.04) mg/dL Est GFR (CKD-EPI)AfAm (>60 ml/min/1.73 sqM) Est GFR (CKD-EPI)NonAf (>60 ml/min/1.73 sqM) Glucose (74-99) mg/dL Lactic Ac Sepsis Rflx Y Plasma Lactic Acid John 3.8 H* (0.7-2.0) mmol/L Calcium (8.4-10.2) mg/dL Phosphorus (2.5-4.5) mg/dL Total Bilirubin (0.2-1.3) mg/dL AST (14-36) U/L ALT (4-34) U/L Alkaline Phosphatase (38-126) U/L Ammonia 66 H (<30) umol/L Creatine Kinase (30-135) U/L Total Protein (6.3-8.2) g/dL Albumin (3.5-5.0) g/dL Amylase (30-110) U/L Lipase (23-300) U/L Urine Color Dark Yellow Urine Appearance Cloudy H (Clear) Urine pH 6.5 (5.0-8.0) Ur Specific Carpenter 1.007 (1.001-1.035) Urine Protein Negative (Negative) Urine Glucose (UA) Negative (Negative) Urine Ketones Negative (Negative) Urine Blood Negative (Negative) Urine Nitrite Negative (Negative) Urine Bilirubin 3+ H (Negative) Urine Urobilinogen <2.0 (<2.0) mg/dL Ur Leukocyte Esterase Trace H (Negative) Urine RBC 2 (0-5) /hpf Urine WBC 8 H (0-5) /hpf Ur Squamous Epith Cells 2 (0-4) /hpf Urine Bacteria Rare H (None) /hpf Urine Mucus Rare H (None) /hpf Serum Alcohol mg/dL Coronavirus (PCR) (Not Detected) 02/10/20 02/10/20 Range/Units 03:12 04:36 WBC (3.8-10.6) k/uL RBC (3.80-5.40) m/uL Hgb (11.4-16.0) gm/dL Hct (34.0-46.0) % MCV (80.0-100.0) fL MCH (25.0-35.0) pg MCHC (31.0-37.0) g/dL RDW (11.5-15.5) % Plt Count (150-450) k/uL Neutrophils % % Lymphocytes % % Monocytes % % Eosinophils % % Basophils % % Neutrophils # (1.3-7.7) k/uL Lymphocytes # (1.0-4.8) k/uL Monocytes # (0-1.0) k/uL Eosinophils # (0-0.7) k/uL Basophils # (0-0.2) k/uL Hypochromasia Anisocytosis Macrocytosis PT (9.0-12.0) sec INR (<1.2) APTT (22.0-30.0) sec Sodium (137-145) mmol/L Potassium (3.5-5.1) mmol/L Chloride (98-107) mmol/L Carbon Dioxide (22-30) mmol/L Anion Gap mmol/L BUN (7-17) mg/dL Creatinine (0.52-1.04) mg/dL Est GFR (CKD-EPI)AfAm (>60 ml/min/1.73 sqM) Est GFR (CKD-EPI)NonAf (>60 ml/min/1.73 sqM) Glucose (74-99) mg/dL Lactic Ac Sepsis Rflx Plasma Lactic Acid John 1.9 (0.7-2.0) mmol/L Calcium (8.4-10.2) mg/dL Phosphorus (2.5-4.5) mg/dL Total Bilirubin (0.2-1.3) mg/dL AST (14-36) U/L ALT (4-34) U/L Alkaline Phosphatase (38-126) U/L Ammonia (<30) umol/L Creatine Kinase (30-135) U/L Total Protein (6.3-8.2) g/dL Albumin (3.5-5.0) g/dL Amylase (30-110) U/L Lipase (23-300) U/L Urine Color Urine Appearance (Clear) Urine pH (5.0-8.0) Ur Specific Carpenter (1.001-1.035) Urine Protein (Negative) Urine Glucose (UA) (Negative) Urine Ketones (Negative) Urine Blood (Negative) Urine Nitrite (Negative) Urine Bilirubin (Negative) Urine Urobilinogen (<2.0) mg/dL Ur Leukocyte Esterase (Negative) Urine RBC (0-5) /hpf Urine WBC (0-5) /hpf Ur Squamous Epith Cells (0-4) /hpf Urine Bacteria (None) /hpf Urine Mucus (None) /hpf Serum Alcohol mg/dL Coronavirus (PCR) Not Detected (Not Detected) - Radiology Data Radiology results: report reviewed (X-ray KUB negative for acute disease), image reviewed Disposition Clinical Impression: Liver failure, Hyperbilirubinemia, Ascites, Hyperammonemia, Abdominal pain Disposition: ADMITTED IP TO THIS HOSP Condition: Serious Is patient prescribed a controlled substance at d/c from ED?: No
[2020-02-10 00:46] LABS: Lactic Acid, Venous 3.8 mmol/L (0.7-2.0)
[2020-02-10 00:47] LABS: ALT 17 U/L (4-34); AST 97 U/L (14-36); African American GFR (CKD) >90 (>60 ml/min/1.73 sqM); Albumin 2.9 g/dL (3.5-5.0); Alcohol <10 mg/dL; Alkaline Phosphatase 263 U/L (38-126); Amylase 48 U/L (30-110); Anion Gap 14 mmol/L; Blood Urea Nitrogen 3 mg/dL (7-17); Calcium 8.3 mg/dL (8.4-10.2); Carbon Dioxide 19 mmol/L (22-30); Chloride 101 mmol/L (98-107); Creatine Kinase 32 U/L (30-135); Glucose 95 mg/dL (74-99); Non-African American GFR(CKD) >90 (>60 ml/min/1.73 sqM); Phosphorus 5.1 mg/dL (2.5-4.5); Potassium 2.9 mmol/L (3.5-5.1); Sodium 134 mmol/L (137-145); Total Protein 6.8 g/dL (6.3-8.2)
[2020-02-10 01:01] LABS: Appearance,Urine Cloudy (Clear); Bacteria,Urine Rare /hpf; Bilirubin,Urine 3+ (Negative); Blood,Urine Negative (Negative); Color,Urine Dark Yellow; Glucose,Urine (UA) Negative (Negative); Ketones,Urine Negative (Negative); Leukocyte Esterase,Urine Trace (Negative); Mucus,Urine Rare /hpf; Nitrite,Urine Negative (Negative); PH, Urine 6.5 (5.0-8.0); Protein,Urine Negative (Negative); RBC,Urine 2 /hpf (0-5); Specific Gravity,Urine 1.007 (1.001-1.035); Squamous Epithelial Cell,Urine 2 /hpf (0-4); Urobilinogen,Urine <2.0 mg/dL (<2.0); WBC,Urine 8 /hpf (0-5)
[2020-02-10 01:04] LABS: Total Bilirubin 20.4 mg/dL (0.2-1.3)
[2020-02-10 01:18] LABS: Partial Thromboplastin Time 48.9 sec (22.0-30.0); Prothrombin Time 19.2 sec (9.0-12.0)
[2020-02-10] MEDS: MORPHINE SULFATE 4 MG/ML SYRINGE IVP PRN ×4 (03:21→18:32)
[2020-02-10] MEDS ORDERED: ONDANSETRON 4 MG/2 ML VIAL IVP STA (03:45)
--- NOTE | 2020-02-10 05:54 | US ---
EXAMINATION TYPE: US gallbladder DATE OF EXAM: 02/10/2020 COMPARISON: 01/16/2020 CLINICAL HISTORY: abd pain. Pain EXAM MEASUREMENTS: Liver Length: 21 cm Gallbladder Wall: 0.7 cm CBD: 0.4 cm Right Kidney: 12.5 x 5.4 x 4.9 cm Pancreas: Obscured by bowel gas Liver: Enlarged, heterogeneous, similar to previous Gallbladder: Wall thickening with pericholecystic fluid, similar to previous Evidence for sonographic Nguyễn's sign: Yes CBD: wnl Right Kidney: wnl Ascites present IMPRESSION: There is moderate gallbladder wall thickening and edema. There is abdominal ascites. No gallstones se en. No dilated ducts. Gallbladder appearance consistent with cholecystitis. No significant change com pared to old exam. Hepatomegaly.
[2020-02-10] MEDS: ONDANSETRON 4 MG/2 ML VIAL IVP PRN ×3 (07:54→18:32)
[2020-02-10] MEDS ORDERED: PHYTONADIONE 10 MG in SODIUM CHLORIDE 0.9% 50 ML IVPB STA (09:19)
[2020-02-10] MEDS ORDERED: NALOXONE 0.4 MG/ML 1 ML VIAL IV PRN (11:58)
[2020-02-10] MEDS ORDERED: ONDANSETRON 4 MG TAB PO PRN (12:12)
[2020-02-10] MEDS ORDERED: PANTOPRAZOLE 40 MG TABLET PO PRN (12:12)
--- NOTE | 2020-02-10 12:13 | P.HPIM ---
History of Present Illness H&P Date: 02/10/20 Chief Complaint: Abdominal pain 29-year-old female presents to the emergency department with worsening abdominal pain over the past few days. Her abdomen has been increasingly distended. She is asking if it could be tapped. She also stated that her legs have been increasingly swelling. Patient denies any fevers no nausea vomiting currently, no diarrhea. She stated that she was just discharged from [facility] a few weeks ago and while she was there she had a paracentesis done as well but they did not take out much volume according to patient. She is currently making arrangements to follow-up at [facility] as outpatient. She does have an appointment with a primary care physician tomorrow. She stated that the last time she had a drink was 2 months ago. Evaluation in the emergency department revealed normal vital signs, WBC count was 16,000, INR 2, bilirubin up to 20. Normal kidney function. AST 97, normal ALT. Alcohol level was negative. Review of Systems Complete review of system performed, pertinent positives per HPI, otherwise negative Past Medical History Past Medical History: Liver Disease, Pneumonia, Seizure Disorder Additional Past Medical History / Comment(s): Past obstetrical history significant for 1 section for failure to progress. ETOH abuse. Bronchitis, Sepsis (2013) History of Any Multi-Drug Resistant Organisms: None Reported Past Surgical History: Section, Orthopedic Surgery Additional Past Surgical History / Comment(s): 2 rt foot sx in past Past Anesthesia/Blood Transfusion Reactions: Motion Sickness Past Psychological History: ADD/ADHD, Anxiety Smoking Status: Former smoker Past Alcohol Use History: Abuse, Daily Past Drug Use History: None Reported - Past Family History Father Family Medical History: No Reported History Mother Family Medical History: No Reported History Medications and Allergies Home Medications Medication Instructions Recorded Confirmed Type Folic Acid 1 mg PO DAILY 02/10/20 02/10/20 History Lactulose 30 gm PO QID 02/10/20 02/10/20 History Midodrine [ProAmatine] 5 mg PO TID-W/MEALS 02/10/20 02/10/20 History Ondansetron HCl [Zofran] 4 mg PO Q12H PRN 02/10/20 02/10/20 History Pantoprazole [Protonix] 40 mg PO DAILY PRN 02/10/20 02/10/20 History Spironolactone [Aldactone] 25 mg PO DAILY 02/10/20 02/10/20 History Thiamine [Vitamin B-1] 100 mg PO DAILY 02/10/20 02/10/20 History levETIRAcetam [Keppra] 750 mg PO BID 02/10/20 02/10/20 History oxyCODONE HCL [OxyIR] 5 mg PO Q6H PRN 02/10/20 02/10/20 History Allergies Allergy/AdvReac Type Severity Reaction Status Date / Time ceftriaxone Allergy Anaphylaxis Verified 02/10/20 09:14 Penicillins Allergy Rash/Hives Verified 02/10/20 09:14 Physical Exam Vitals: Vital Signs Temp Pulse Pulse Resp BP BP Pulse Ox 02/10/20 11:20 102 H 16 109/71 100 02/10/20 11:00 101 H 18 106/69 100 02/10/20 10:43 102 H 16 103/73 100 02/10/20 10:25 101 H 16 111/74 100 02/10/20 07:00 98 F 100 18 110/61 98 02/10/20 04:39 90 18 110/70 100 02/10/20 03:17 102 H 18 105/60 100 02/10/20 01:26 106 H 18 114/59 98 02/09/20 23:33 98.1 F 112 H 18 112/78 100 Intake and Output 02/09/20 02/10/20 02/10/20 22:59 06:59 14:59 Other: Weight 81.647 kg Constitutional: No acute distress, conversant, pleasant Eyes: icteric sclerae, moist conjunctiva, no lid-lag, PERRLA, ENMT: Oropharynx clear, no erythema, exudates Neck: Supple, FROM, no masses, or JVD, No carotid bruits, No thyromegaly Lungs: Clear to auscultation, Clear to percussion, Normal respiratory effort, no accessory muscle use Cardiovascular: Heart regular in rate and rhythm, No murmurs, gallops, or rubs, 2+ peripheral edema Abdominal: Tense, distended, nontender, no guarding, rebound or rigidity, Normoactive bowel sounds, No hepatomegaly, No splenomegaly, No palpable mass Skin: Normal temperature, tone, texture, turgor, no induration, No subcutaneous nodules, No rash, lesions, No ulcers Extremities: No digital cyanosis, No clubbing, Pedal pulses intact and symmetrical, Radial pulses intact and symmetrical, No calf tenderness Psychiatric: Alert and oriented to person, place and time, appropriate affect, intact judgement Neuro: Muscles Strength 5/5 in all 4 extremities, Sensation to light touch grossly present throughout, Cranial nerves II-XII grossly intact, no focal sensory deficits Results CBC & Chem 7: 02/09/20 23:59 02/09/20 23:59 Labs: Abnormal Lab Results - Last 24 Hours (Table) 02/09/20 02/09/20 02/09/20 Range/Units 23:59 23:59 23:59 WBC 16.7 H (3.8-10.6) k/uL RBC 2.64 L (3.80-5.40) m/uL Hgb 8.2 L (11.4-16.0) gm/dL Hct 26.5 L (34.0-46.0) % MCV 100.4 H (80.0-100.0) fL RDW 20.1 H (11.5-15.5) % Neutrophils # 14.2 H (1.3-7.7) k/uL PT 19.2 H (9.0-12.0) sec INR 2.0 H (<1.2) APTT 48.9 H (22.0-30.0) sec Sodium 134 L (137-145) mmol/L Potassium 2.9 L (3.5-5.1) mmol/L Carbon Dioxide 19 L (22-30) mmol/L BUN 3 L (7-17) mg/dL Plasma Lactic Acid John (0.7-2.0) mmol/L Calcium 8.3 L (8.4-10.2) mg/dL Phosphorus 5.1 H (2.5-4.5) mg/dL Total Bilirubin 20.4 H* (0.2-1.3) mg/dL AST 97 H (14-36) U/L Alkaline Phosphatase 263 H (38-126) U/L Ammonia (<30) umol/L Albumin 2.9 L (3.5-5.0) g/dL Urine Appearance (Clear) Urine Bilirubin (Negative) Ur Leukocyte Esterase (Negative) Urine WBC (0-5) /hpf Urine Bacteria (None) /hpf Urine Mucus (None) /hpf 06/28/20 06/29/20 Range/Units 23:59 00:32 WBC (3.8-10.6) k/uL RBC (3.80-5.40) m/uL Hgb (11.4-16.0) gm/dL Hct (34.0-46.0) % MCV (80.0-100.0) fL RDW (11.5-15.5) % Neutrophils # (1.3-7.7) k/uL PT (9.0-12.0) sec INR (<1.2) APTT (22.0-30.0) sec Sodium (137-145) mmol/L Potassium (3.5-5.1) mmol/L Carbon Dioxide (22-30) mmol/L BUN (7-17) mg/dL Plasma Lactic Acid John 3.8 H* (0.7-2.0) mmol/L Calcium (8.4-10.2) mg/dL Phosphorus (2.5-4.5) mg/dL Total Bilirubin (0.2-1.3) mg/dL AST (14-36) U/L Alkaline Phosphatase (38-126) U/L Ammonia 66 H (<30) umol/L Albumin (3.5-5.0) g/dL Urine Appearance Cloudy H (Clear) Urine Bilirubin 3+ H (Negative) Ur Leukocyte Esterase Trace H (Negative) Urine WBC 8 H (0-5) /hpf Urine Bacteria Rare H (None) /hpf Urine Mucus Rare H (None) /hpf Assessment and Plan Plan: Alcoholic hepatitis with cirrhosis and coagulopathy Discussed with Dr. Hartley Due to high INR and give 10 mg of vitamin K IV Follow-up INR in a.m. Follow-up liver function and bilirubin in a.m. Ascites Status post paracentesis Give albumin 25gm Start Lasix and continue home Aldactone History of seizure Continue Keppra Anemia of chronic disease Stable at this time Continue to monitor hemoglobin Leukocytosis Unclear etiology No evidence of infection Follow in a.m. History of alcoholism Currently in remission Patient admitted to inpatient, expected length of stay more than 2 minutes Anticipated disposition; home Anticipated discharge: 3-4 days
--- NOTE | 2020-02-10 12:14 | US ---
Ultrasound-guided paracentesis. DATE OF EXAM: 02/10/2020 CLINICAL HISTORY: Ascites The procedure was discussed with the patient. The risks, complications, benefits, and alternatives we re discussed and any questions were answered. Informed consent was obtained. The patient was placed s upine on the ultrasound table and prepped and draped in the usual sterile fashion. All elements of maximal barrier technique were utilized. Under ultrasound guidance, access into the right lower quadrant was obtained, via the paracentesis catheter system and direct ultrasound guidanc e. Approximately 5.4 liters of straw-colored fluid was removed. The patient was stable throughout the pr ocedure and remained stable upon discharge from Department of Radiology. IMPRESSION: Successful paracentesis under ultrasound guidance.
[2020-02-10] MEDS: ALBUMIN HUMAN 25% 50 ML in EMPTY BAG 1 BAG IVPB SCH ×2 (13:07→13:21)
[2020-02-10] MEDS: MIDODRINE 5 MG TAB PO SCH ×2 (13:11→17:28)
[2020-02-10] MEDS: FUROSEMIDE 40 MG TAB PO SCH (13:12)
[2020-02-10] MEDS: LACTULOSE 20 GM/30 ML CUP PO SCH ×3 (13:14→21:43)
[2020-02-10] MEDS ORDERED: LORazepam 2 MG/ML INJ IV PRN ×3 (19:19)
[2020-02-10] MEDS: POTASSIUM CHLORIDE ER 20 MEQ TAB.ER PO SCH ×2 (19:54→21:42)
[2020-02-10 20:30] LABS: African American GFR (CKD) >90 (>60 ml/min/1.73 sqM); Anion Gap 12 mmol/L; Blood Urea Nitrogen <2 mg/dL (7-17); Calcium 8.4 mg/dL (8.4-10.2); Carbon Dioxide 22 mmol/L (22-30); Chloride 102 mmol/L (98-107); Glucose 102 mg/dL (74-99); Non-African American GFR(CKD) >90 (>60 ml/min/1.73 sqM); Sodium 136 mmol/L (137-145)
[2020-02-10] MEDS ORDERED: traZODone HCL 100 MG TAB PO PRN (22:25)
[2020-02-10 22:46] LABS: Appearance,BF Clear; Color,BF Yellow; Nucleated Cells, Body Fluid 12 /uL; RBC, Body Fluid 17 /uL
[2020-02-11] MEDS: POTASSIUM CHLORIDE ER 20 MEQ TAB.ER PO SCH ×4 (01:19→05:56)
[2020-02-11] MEDS: MORPHINE SULFATE 4 MG/ML SYRINGE IVP PRN ×2 (01:37→09:33)
[2020-02-11] MEDS: ONDANSETRON 4 MG/2 ML VIAL IVP PRN ×2 (01:41→09:32)
[2020-02-11 03:36] LABS: Anisocytosis Slight; Basophils # (A) 0.1 k/uL (0-0.2); Basophils % (A) 0 %; Eosinophils # (A) 0.2 k/uL (0-0.7); Eosinophils % (A) 1 %; HCT 24.5 % (34.0-46.0); HGB 7.7 gm/dL (11.4-16.0); Hypochromasia Marked; Lymphocytes % (A) 6 %; MCH 31.5 pg (25.0-35.0); MCHC 31.4 g/dL (31.0-37.0); MCV 100.6 fL (80.0-100.0); Macrocytosis Moderate; Mean Platelet Volume 7.7; Monocytes # (A) 0.8 k/uL (0-1.0); Monocytes % (A) 5 %; Neutrophils # (A) 12.8 k/uL (1.3-7.7); Neutrophils % (A) 85 %; Platelet Count 238 k/uL (150-450); RBC 2.44 m/uL (3.80-5.40); RDW 19.7 % (11.5-15.5); WBC 15.1 k/uL (3.8-10.6)
[2020-02-11 03:40] LABS: ALT 16 U/L (4-34); AST 94 U/L (14-36); African American GFR (CKD) >90 (>60 ml/min/1.73 sqM); Albumin 2.9 g/dL (3.5-5.0); Alkaline Phosphatase 239 U/L (38-126); Anion Gap 12 mmol/L; Blood Urea Nitrogen <2 mg/dL (7-17); Calcium 8.3 mg/dL (8.4-10.2); Carbon Dioxide 24 mmol/L (22-30); Chloride 101 mmol/L (98-107); Glucose 102 mg/dL (74-99); Magnesium 1.6 mg/dL (1.6-2.3); Non-African American GFR(CKD) >90 (>60 ml/min/1.73 sqM); Phosphorus 5.5 mg/dL (2.5-4.5); Potassium 3.1 mmol/L (3.5-5.1); Sodium 137 mmol/L (137-145); Total Protein 6.6 g/dL (6.3-8.2)
[2020-02-11 03:54] LABS: Total Bilirubin 19.8 mg/dL (0.2-1.3)
[2020-02-11 04:14] LABS: Glucose, BF Source Paracentesis Fluid; Glucose, Body Fluid 85 mg/dL; LDH, Body Fluid Source Paracentesis Fluid
[2020-02-11 04:21] VITALS: BP 95/56; PULSE 118; RESP 20; TEMP 98.5
[2020-02-11] MEDS ORDERED: THIAMINE 100 MG TAB PO SCH ×2 (07:30→09:00)
[2020-02-11] MEDS ORDERED: POTASSIUM CHLORIDE 10 MEQ in WATER FOR INJECTION 1 100ML.BAG IVPB STA (07:49)
[2020-02-11] MEDS ORDERED: POTASSIUM CHLORIDE ER 20 MEQ TAB.ER PO ONE (09:00)
[2020-02-11] MEDS ORDERED: SPIRONOLACTONE 25 MG TAB PO SCH (09:00)
[2020-02-11] MEDS ORDERED: FOLIC ACID 1 MG TAB PO SCH (09:00)
[2020-02-11] MEDS: FUROSEMIDE 40 MG TAB PO SCH (09:37)
[2020-02-11] MEDS: MIDODRINE 5 MG TAB PO SCH ×2 (09:39→11:35)
[2020-02-11] MEDS: LACTULOSE 20 GM/30 ML CUP PO SCH ×2 (09:39→11:36)
--- NOTE | 2020-02-11 11:36 | P.DS ---
Providers Date of admission: 02/10/20 07:40 Expected date of discharge: 02/11/20 Attending physician: Carlito Mchugh MD Consults: 02/10/20 11:58 Consult Physician Routine Consulting Provider: Jefry Hartley Consult Reason/Comments: hepatitis Do you want consulting provider notified?: Yes Primary care physician: [facility] Course: 29-year-old female presents to the emergency department with worsening abdominal pain over the past few days. Her abdomen has been increasingly distended and she was also having bilateral lower extremities edema. In the ER she was asking if her abdomen could be tapped. Patient denied any fevers, no nausea vomiting, no diarrhea. She stated that she was just discharged from [facility] a few weeks ago and while she was there she had a paracentesis done as well but they did not take out much volume according to patient. She is currently making arrangements to follow-up at [facility] as outpatient. She is also starting to establish her care with a primary care physician tomorrow. She stated that the last time she had a drink was 2 months ago. Evaluation in the emergency department revealed normal vital signs, WBC count was 16,000, INR 2, bilirubin up to 20. Normal kidney function. AST 97, normal ALT. Alcohol level was negative. Patient was admitted for further evaluation and management. Patient had ultrasound-guided paracentesis, 5.3 L of fluid was taken out. Albumin was given. She was also started on Lasix for diuresis. She was already taking Aldactone. The next day her potassium was low and this was replaced. It seems that her INR and bilirubin values are chronically elevated and current values are not so far away from baseline. Patient was discussed and seen by GI doctor Naeem. I talked to him today about discharging her home, he stated that he has not seen her yet but if her fluid overload improved which was the case then she could go. Patient asked for narcotic pain management medic ations and I declined to provide that to her due to history of alcoholism. She was advised to follow up with GI specialist at [facility], she is aware of that. Time for discharge 35 minutes. Patient Condition at Discharge: Serious Plan - Discharge Summary Discharge Rx Participant: No New Discharge Prescriptions: New Potassium Chloride ER [K-Dur 20] 20 meq PO DAILY 30 Days #30 tab Furosemide [Lasix] 40 mg PO DAILY 30 Days #30 tab Continue Pantoprazole [Protonix] 40 mg PO DAILY PRN PRN Reason: GERD Ondansetron HCl [Zofran] 4 mg PO Q12H PRN PRN Reason: Nausea And Vomiting levETIRAcetam [Keppra] 750 mg PO BID Midodrine [ProAmatine] 5 mg PO TID-W/MEALS Thiamine [Vitamin B-1] 100 mg PO DAILY Spironolactone [Aldactone] 25 mg PO DAILY Folic Acid 1 mg PO DAILY Lactulose 30 gm PO QID Discontinued oxyCODONE HCL [OxyIR] 5 mg PO Q6H PRN PRN Reason: Pain Discharge Medication List Folic Acid 1 mg PO DAILY 02/10/20 [History] Lactulose 30 gm PO QID 02/10/20 [History] Midodrine [ProAmatine] 5 mg PO TID-W/MEALS 02/10/20 [History] Ondansetron HCl [Zofran] 4 mg PO Q12H PRN 02/10/20 [History] Pantoprazole [Protonix] 40 mg PO DAILY PRN 02/10/20 [History] Spironolactone [Aldactone] 25 mg PO DAILY 02/10/20 [History] Thiamine [Vitamin B-1] 100 mg PO DAILY 02/10/20 [History] levETIRAcetam [Keppra] 750 mg PO BID 02/10/20 [History] Furosemide [Lasix] 40 mg PO DAILY 30 Days #30 tab 02/11/20 [Rx] Potassium Chloride ER [K-Dur 20] 20 meq PO DAILY 30 Days #30 tab 02/11/20 [Rx] Follow up Appointment(s)/Referral(s): [facility], [NON-STAFF] - Dede Harmon MD [Primary Care Provider] - 1-2 days
--- NOTE | 2020-02-11 23:23 | P.CONS ---
History of Present Illness - Reason for Consult Consult date: 02/10/20 Ascites, alcoholic hepatitis Requesting physician: Pal Live - Chief Complaint Abdominal distension - History of Present Illness 29-year-old female with a known history of alcohol abuse and recent hospitalization for acute alcoholic hepatitis with ascites who presented to the hospital for evaluation of abdominal pain and distention. The patient had an extensive stay both locally and after transferred to [facility]. She is unclear about medications and dosages but does believe she is on diuretic therapy as well as lactulose for encephalopathy. The patient has been home for approximately 2 weeks after discharge from [facility] and has noted increasing swelling of her abdomen and lower extremities. She presented to the hospital for further evaluation. She denies any fevers, nausea, vomiting or change in bowel habits although she does have loose stool with lactulose. She did require paracentesis at [facility] and believes approximate 4.5 L were removed at that time. She has been abstinent from alcohol for over 2 month s since her initial admission. On presentation WBC 16.7, hemoglobin 8.2, platelet count 257,000, ammonia 66, lipase 53, amylase 48, INR 2.0, total bilirubin 20.4, alkaline phosphatase 263, AST 97 and ALTs 17. Review of Systems REVIEW OF SYSTEMS: CONSTITUTIONAL: Denies any fevers, chills, weight change or fatigue. CARDIOVASCULAR: Denies any chest pain, palpitations high or low blood pressures RESPIRATORY: Denies any shortness of breath, hemoptysis or cough. GENITOURINARY: No dysuria or hematuria, she does report dark urine. MUSCULOSKELETAL: No weakness reported. SKIN: Denies any new rashes or lesions, jaundice or pallor. PSYCHIATRIC: Denies any depression or anxiety, she does have a known history of alcohol abuse for which she has been abstinent for over 2 months per her report. NEUROLOGY: Denies headache, denies any new focal deficits. EARS/NOSE/THROAT: No recent hearing change, congestion, nasal discharge or sore throat. EYES: No pain in eyes, discharge or change in vision. GASTROINTESTINAL: As per HPI. Past Medical History Past Medical History: Liver Disease, Pneumonia, Seizure Disorder Additional Past Medical History / Comment(s): Past obstetrical history significant for 1 section for failure to progress. ETOH abuse. Bronchitis, Sepsis (2013) History of Any Multi-Drug Resistant Organisms: None Reported Past Surgical History: Section, Orthopedic Surgery Additional Past Surgical History / Comment(s): 2 rt foot sx in past Past Anesthesia/Blood Transfusion Reactions: Motion Sickness Smoking Status: Former smoker - Past Family History Father Family Medical History: No Reported History Additional Family Medical History / Comment(s): anxiety Mother Family Medical History: No Reported History Medications and Allergies Home Medications Medication Instructions Recorded Confirmed Type Folic Acid 1 mg PO DAILY 02/10/20 02/10/20 History Lactulose 30 gm PO QID 02/10/20 02/10/20 History Midodrine [ProAmatine] 5 mg PO TID-W/MEALS 02/10/20 02/10/20 History Ondansetron HCl [Zofran] 4 mg PO Q12H PRN 02/10/20 02/10/20 History Pantoprazole [Protonix] 40 mg PO DAILY PRN 02/10/20 02/10/20 History Spironolactone [Aldactone] 25 mg PO DAILY 02/10/20 02/10/20 History Thiamine [Vitamin B-1] 100 mg PO DAILY 02/10/20 02/10/20 History levETIRAcetam [Keppra] 750 mg PO BID 02/10/20 02/10/20 History Furosemide [Lasix] 40 mg PO DAILY 30 Days #30 tab 02/11/20 Rx Potassium Chloride ER [K-Dur 20] 20 meq PO DAILY 30 Days #30 tab 02/11/20 Rx Allergies Allergy/AdvReac Type Severity Reaction Status Date / Time ceftriaxone Allergy Anaphylaxis Verified 02/10/20 09:14 Penicillins Allergy Rash/Hives Verified 02/10/20 09:14 Physical Exam Vitals: Vital Signs Temp Pulse Pulse Resp BP BP Pulse Ox 02/10/20 11:20 102 H 16 109/71 100 02/10/20 11:00 101 H 18 106/69 100 02/10/20 10:43 102 H 16 103/73 100 02/10/20 10:25 101 H 16 111/74 100 02/10/20 07:00 98 F 100 18 110/61 98 02/10/20 04:39 90 18 110/70 100 02/10/20 03:17 102 H 18 105/60 100 02/10/20 01:26 106 H 18 114/59 98 02/09/20 23:33 98.1 F 112 H 18 112/78 100 Intake and Output 02/09/20 02/10/20 02/10/20 22:59 06:59 14:59 Other: Weight 81.647 kg 81.647 kg On physical examination, patient appears comfortable in no apparent distress. HEAD: Normocephalic, atraumatic. EYES: Scleral icterus. No conjunctival injection. MOUTH: No lesions, tongue midline. NECK: Trachea midline, no gross abnormalities. CHEST: Clear to auscultation with no wheezing or rhonchi appreciated. HEART: Regular rate and rhythm. ABDOMEN: Soft, and only mildly distended status post paracentesis. Bowel sounds are positive. No organomegaly. No guarding or rigidity. EXTREMITIES: No pedal edema. SKIN: No rashes, no jaundice. NEUROLOGIC: Alert and oriented x3, with no asterixis noted. No focal deficits. Results CBC & Chem 7: 02/11/20 03:07 02/11/20 08:04 Labs: Abnormal Lab Results - Last 24 Hours (Table) 02/09/20 02/09/20 02/09/20 Range/Units 23:59 23:59 23:59 WBC 16.7 H (3.8-10.6) k/uL RBC 2.64 L (3.80-5.40) m/uL Hgb 8.2 L (11.4-16.0) gm/dL Hct 26.5 L (34.0-46.0) % MCV 100.4 H (80.0-100.0) fL RDW 20.1 H (11.5-15.5) % Neutrophils # 14.2 H (1.3-7.7) k/uL PT 19.2 H (9.0-12.0) sec INR 2.0 H (<1.2) APTT 48.9 H (22.0-30.0) sec Sodium 134 L (137-145) mmol/L Potassium 2.9 L (3.5-5.1) mmol/L Carbon Dioxide 19 L (22-30) mmol/L BUN 3 L (7-17) mg/dL Plasma Lactic Acid John (0.7-2.0) mmol/L Calcium 8.3 L (8.4-10.2) mg/dL Phosphorus 5.1 H (2.5-4.5) mg/dL Total Bilirubin 20.4 H* (0.2-1.3) mg/dL AST 97 H (14-36) U/L Alkaline Phosphatase 263 H (38-126) U/L Ammonia (<30) umol/L Albumin 2.9 L (3.5-5.0) g/dL Urine Appearance (Clear) Urine Bilirubin (Negative) Ur Leukocyte Esterase (Negative) Urine WBC (0-5) /hpf Urine Bacteria (None) /hpf Urine Mucus (None) /hpf 02/09/20 02/10/20 Range/Units 23:59 00:32 WBC (3.8-10.6) k/uL RBC (3.80-5.40) m/uL Hgb (11.4-16.0) gm/dL Hct (34.0-46.0) % MCV (80.0-100.0) fL RDW (11.5-15.5) % Neutrophils # (1.3-7.7) k/uL PT (9.0-12.0) sec INR (<1.2) APTT (22.0-30.0) sec Sodium (137-145) mmol/L Potassium (3.5-5.1) mmol/L Carbon Dioxide (22-30) mmol/L BUN (7-17) mg/dL Plasma Lactic Acid John 3.8 H* (0.7-2.0) mmol/L Calcium (8.4-10.2) mg/dL Phosphorus (2.5-4.5) mg/dL Total Bilirubin (0.2-1.3) mg/dL AST (14-36) U/L Alkaline Phosphatase (38-126) U/L Ammonia 66 H (<30) umol/L Albumin (3.5-5.0) g/dL Urine Appearance Cloudy H (Clear) Urine Bilirubin 3+ H (Negative) Ur Leukocyte Esterase Trace H (Negative) Urine WBC 8 H (0-5) /hpf Urine Bacteria Rare H (None) /hpf Urine Mucus Rare H (None) /hpf US - abdomen: report reviewed (Ultrasound paracentesis with 5.4 L of ascitic fluid removed) Assessment and Plan (1) Alcoholic hepatitis Narrative/Plan: 29-year-old female with a known history of alcohol abuse for which she has been abstinent for approximately 2 months and recent hospitalizations both locally and at [facility] for acute alcoholic hepatitis with ascites and encephalopathy. Previously she required paracentesis at [facility] and reports approximately 4.5 L of ascitic fluid removed at that time. She does believe she was on diuretic therapy but had increasing abdominal distention prior to presentation as well as lower extremity swelling. She is status post p aracentesis with 5.4 L of ascitic fluid removed. Status: Acute Code(s): K70.10 - ALCOHOLIC HEPATITIS WITHOUT ASCITES SNOMED Code(s): 861580617 (2) Abdominal pain Status: Acute Code(s): R10.9 - UNSPECIFIED ABDOMINAL PAIN SNOMED Code(s): 03505215 (3) Ascites Status: Acute Code(s): R18.8 - OTHER ASCITES SNOMED Code(s): 944858141 (4) Elevated liver enzymes Status: Acute Code(s): R74.8 - ABNORMAL LEVELS OF OTHER SERUM ENZYMES SNOMED Code(s): 913042847 Plan: Supportive care Sodium restricted diet Continue lactulose 4 times a day Continue management Continue Lasix and Aldactone Alcohol abstinence Patient will need close follow-up after discharge for continued titration of medications in evaluation for possible repeat paracentesis Thank you for allowing us to participate in the care of the patient
== END 2020-02-11 14:00 | disposition home or self-care (01) | DRG 433 ==
LOC: EC 23:28 → 5NMEDONC 02-10 03:06 → UNDOADMIN 02-10 03:06 → 5NMEDONC 02-10 07:40
PROVIDERS: ADMIT Internal Medicine; ATTEND Internal Medicine
PROC: 0W9G3ZZ Drainage of Peritoneal Cavity, Percutaneous Approach (ICD-10-PCS; principal; 2020-02-10)
DX: K70.11 Alcoholic hepatitis with ascites (principal); D68.9 Coagulation defect, unspecified; K70.31 Alcoholic cirrhosis of liver with ascites; K72.90 Hepatic failure, unspecified without coma; D63.8 Anemia in other chronic diseases classified elsewhere; D72.829 Elevated white blood cell count, unspecified; F41.9 Anxiety disorder, unspecified; F90.9 Attention-deficit hyperactivity disorder, unspecified type; G40.909 Epilepsy, unspecified, not intractable, without status epilepticus; Z79.899 Other long term (current) drug therapy; Z87.891 Personal history of nicotine dependence; F10.21 Alcohol dependence, in remission; Z87.01 Personal history of pneumonia (recurrent); Z88.0 Allergy status to penicillin; Z88.8 Allergy status to other drugs, medicaments and biological substances
CPT/HCPCS: 36415; 49083; 74018; 76705; 80048; 80053; 80320; 81001; 82140; 82150; 82550; 82945; 83605; 83615; 83690; 83735; 84100; 84132; 84157; 85025; 85610; 85730; 87070; 87075; 87205; 89050; 96365; 96366; 96375; 96376; 99285

== ENCOUNTER 2020-03-09 19:54 | Inpatient (IN) | payer OTHER ==
[2020-03-10] MEDS ORDERED: MORPHINE SULFATE 4 MG/ML SYRINGE IV PRN (01:02)
[2020-03-10] MEDS ORDERED: NALOXONE 0.4 MG/ML 1 ML VIAL IV PRN (01:02)
[2020-03-10] MEDS ORDERED: LORazepam 2 MG/ML INJ IV PRN ×3 (01:06)
[2020-03-10] MEDS ORDERED: THIAMINE 100 MG/ML 2 ML VIAL IM STA (01:06)
--- NOTE | 2020-03-10 01:28 | P.HPIM ---
History of Present Illness H&P Date: 03/10/20 Chief Complaint: confusion , alcohol withdrawal 29 year old female with alcohol abuse, and end stage liver disease, and seizure disorder. patient was taken to the hospital as she has seemed more confused and tired today, she was also complaining of shakes and did not want to keep drinking alcohol. she admits to long history of heavy alcohol use on daily basis , with multiple relapses. she also knows that she has end stage liver disease due to alcohol. she seeked medical help to day to help her cut back on alcohol knowing that she would have seizures and if she just stopped alcohol all at once without medical help. she claims that she is at her baseline status of her health. she denies any GI bleeding, she reports very poor PO intake, she had abd paracentesis twice in the past, and feels a little bloated at this time, her last tap was about a month ago. she claims to be compliant with her meds and her most recent breakthrough seizure was about 3-4 weeks ago. she is homeless and stays with some friends who cares about her. she recognizes that she has addiction to alcohol but feels very helpless, she does not want to and hoping that one day someone can help her quit. but she admits that she would use any excuse to convince herself to drink again even while trying to cut back. she has a daughter that lives with her parents at the moment. she reports chronic abd pain , left sided throbbing in nature, has been going on for 1 year, unchanged, denies any fever or chills, denies any urinary changes (urine is dark at baseline) denies any urinary symptoms, denies any nausea or vomiting, nothing makes her pain worse or better. she has very poor apetite but denies vomiting,. she is not aware of any history of esophageal varices or bleeding. she felt more confused over the past few days , which is another reason her roommate decided that she needs to go to the hospital patient was transferred to our facility from [place] for alcohol withdrawal and hepatic encephalopathy grade I labs [facility] were reviewed and showed hgb 8.5 with macrocytosis and thrombocytopenia , WBC 10.4 INR 1.7 ammonia 61 AST 190 alk phos 397 bili 12.[address] brain and spine were unremarkable for any acute pathology Review of Systems Pertinent positives as noted in HPI. All other systems were reviewed and are negative Past Medical History Past Medical History: Liver Disease, Pneumonia, Seizure Disorder Additional Past Medical History / Comment(s): Past obstetrical history significant for 1 section for failure to progress. ETOH abuse. Bronchitis, Sepsis (2013) History of Any Multi-Drug Resistant Organisms: None Reported Past Surgical History: Section, Orthopedic Surgery Additional Past Surgical History / Comment(s): 2 rt foot sx in past Past Anesthesia/Blood Transfusion Reactions: Motion Sickness Past Psychological History: ADD/ADHD, Anxiety Past Alcohol Use History: Abuse, Daily Past Drug Use History: None Reported - Past Family History Father Family Medical History: No Reported History Additional Family Medical History / Comment(s): anxiety Mother Family Medical History: No Reported History Medications and Allergies Home Medications Medication Instructions Recorded Confirmed Type RX: Folic Acid 1 mg PO DAILY 02/10/20 02/10/20 History RX: Lactulose 30 gm PO QID 02/10/20 02/10/20 History RX: Midodrine [ProAmatine] 5 mg PO TID-W/MEALS 02/10/20 02/10/20 History RX: Ondansetron HCl [Zofran] 4 mg PO Q12H PRN 02/10/20 02/10/20 History RX: Pantoprazole [Protonix] 40 mg PO DAILY PRN 02/10/20 02/10/20 History RX: Spironolactone [Aldactone] 25 mg PO DAILY 02/10/20 02/10/20 History RX: Thiamine [Vitamin B-1] 100 mg PO DAILY 02/10/20 02/10/20 History RX: levETIRAcetam [Keppra] 750 mg PO BID 02/10/20 02/10/20 History RX: Furosemide [Lasix] 40 mg PO DAILY 30 Days #30 tab 02/11/20 Rx RX: Potassium Chloride ER [K-Dur 20 meq PO DAILY 30 Days #30 tab 02/11/20 Rx 20] Allergies Allergy/AdvReac Type Severity Reaction Status Date / Time ceftriaxone Allergy Anaphylaxis Verified 02/10/20 09:14 Penicillins Allergy Rash/Hives Verified 02/10/20 09:14 Physical Exam Vitals: Intake and Output 03/09/20 03/09/20 03/10/20 14:59 22:59 06:59 Other: Weight 68.3 kg Constitutional: No acute distress, conversant, pleasant, Eyes: Deeply jaundiced sclerae, moist conjunctiva, Pupils equal round reactive to light ENMT: NC/AT Oropharynx clear,, angular stomatitis, no erythema, or exudates Neck: Supple, FROM, no masses, or JVD No carotid bruits No thyromegaly Lungs: Clear to auscultation Clear to percussion Normal respiratory effort, no accessory muscle use Cardiovascular: Heart regular in rate and rhythm, No murmurs, gallops, or rubs No peripheral edema Abdominal: Soft, very mild distention Tenderness to deep palpation over the left lower quadrant of the abdomen, no guarding, rebound or rigidity Abdomen moving with respiration Normoactive bowel sounds No hepatomegaly, No splenomegaly No palpable mass No abdominal wall hernia noted Skin: Deeply jaundiced otherwise Normal temperature, tone, texture, turgor No induration No subcutaneous nodules No rash, lesions No ulcers Extremities: No digital cyanosis No clubbing Pedal pulses intact and symmetrical Radial pulses intact and symmetrical No calf tenderness Psychiatric: Alert and oriented to person, place and time Appropriate affect fair judgement Neuro positive asterixis Muscles Strength 5/5 in all 4 extremities Sensation to light touch grossly present throughout Cranial nerves II-XII grossly intact No focal sensory deficits Lymphatics: no palpable cervical or supraclavicular , or inguinal lymph nodes Assessment and Plan Assessment: Alcohol abuse with acute alcohol withdrawal syndrome Acute hepatic encephalopathy grade 1 End-stage liver disease secondary to alcohol hepatitis Alcohol abuse Seizure disorder Plan IV fluid hydration Resume spironolactone Supportive care Alcohol call withdrawal precautions Seizure precautions Resume seizure meds Benzodiazepines per CIWA Thiamine Check blood culture Interventional radiology for abdominal paracentesis evaluation diagnostic and tapping if she has significant ascites Protonix twice a day Lactulose with goal of 3 bowel movements per day Follow up labs in a.m. GI consult Regular diet Blood culture Check UA CODE STATUS: Full code DVT prophylaxis: Heparin subcu 3 times a day Discussed with: Patient, ER, RN Anticipated length of stay more than [address]: Pending clinical course A total of 75 minutes was spent on the care of this complex patient more than 50% of the time was spent in counseling and care coordination.
[2020-03-10] MEDS: LACTULOSE 20 GM/30 ML CUP PO SCH ×5 (01:38→22:28)
[2020-03-10] MEDS: PANTOPRAZOLE 40 MG TABLET PO SCH ×3 (01:38→18:02)
[2020-03-10] MEDS: LORazepam 2 MG/ML INJ IV PRN ×3 (01:38→20:29)
[2020-03-10] MEDS: SODIUM CHLORIDE 0.9% 1,000 ML IV SCH ×3 (01:39→22:28)
[2020-03-10] MEDS: ONDANSETRON 4 MG/2 ML VIAL IVP PRN ×3 (02:21→20:29)
[2020-03-10 02:34] LABS: Amorphous Sediment,Urine Rare /hpf; Appearance,Urine Cloudy (Clear); Bilirubin,Urine 2+ (Negative); Blood,Urine Negative (Negative); Color,Urine Dark Brown; Glucose,Urine (UA) Negative (Negative); Ketones,Urine Negative (Negative); Leukocyte Esterase,Urine Moderate (Negative); Mucus,Urine Rare /hpf; Nitrite,Urine Negative (Negative); Protein,Urine Trace (Negative); RBC,Urine 2 /hpf (0-5); Specific Gravity,Urine 1.015 (1.001-1.035); Squamous Epithelial Cell,Urine 6 /hpf (0-4); WBC,Urine 8 /hpf (0-5)
[2020-03-10] MEDS: SPIRONOLACTONE 25 MG TAB PO SCH (07:34)
[2020-03-10] MEDS ORDERED: SODIUM CHLORIDE 0.9% 1,000 ML IV ONE (08:03)
[2020-03-10] MEDS: FOLIC ACID 1 MG TAB PO SCH (08:14)
[2020-03-10] MEDS: HEPARIN SODIUM,PORCINE 5,000 UNIT/ML 1 ML VIAL SQ SCH ×2 (08:15→17:57)
[2020-03-10] MEDS: NICOTINE 14MG/24HR PATCH TRANSDERM SCH (08:15)
[2020-03-10 08:32] LABS: Anisocytosis Slight; Basophils % (A) 0 %; Eosinophils # (A) 0.1 k/uL (0-0.7); Eosinophils % (A) 1 %; HCT 23.2 % (34.0-46.0); HGB 7.5 gm/dL (11.4-16.0); Lymphocytes # (A) 1.1 k/uL (1.0-4.8); Lymphocytes % (A) 23 %; MCH 32.4 pg (25.0-35.0); MCHC 32.5 g/dL (31.0-37.0); MCV 99.7 fL (80.0-100.0); Macrocytosis Slight; Mean Platelet Volume 8.5; Monocytes # (A) 0.1 k/uL (0-1.0); Monocytes % (A) 3 %; Neutrophils # (A) 3.3 k/uL (1.3-7.7); Neutrophils % (A) 72 %; RBC 2.33 m/uL (3.80-5.40); RDW 16.7 % (11.5-15.5); WBC 4.6 k/uL (3.8-10.6)
[2020-03-10 08:37] LABS: Prothrombin Time 19.1 sec (9.0-12.0)
[2020-03-10 08:47] LABS: ALT 32 U/L (4-34); AST 162 U/L (14-36); African American GFR (CKD) >90 (>60 ml/min/1.73 sqM); Albumin 2.6 g/dL (3.5-5.0); Alkaline Phosphatase 308 U/L (38-126); Anion Gap 13 mmol/L; Blood Urea Nitrogen 3 mg/dL (7-17); Calcium 7.8 mg/dL (8.4-10.2); Carbon Dioxide 25 mmol/L (22-30); Chloride 100 mmol/L (98-107); Glucose 130 mg/dL (74-99); Magnesium 1.5 mg/dL (1.6-2.3); Non-African American GFR(CKD) >90 (>60 ml/min/1.73 sqM); Phosphorus 5.3 mg/dL (2.5-4.5); Potassium 3.5 mmol/L (3.5-5.1); Sodium 138 mmol/L (137-145); Total Bilirubin 10.2 mg/dL (0.2-1.3); Total Protein 7.1 g/dL (6.3-8.2)
[2020-03-10] MEDS: levETIRAcetam 500 MG TAB PO SCH ×2 (08:50→22:27)
--- NOTE | 2020-03-10 08:59 | US ---
EXAMINATION TYPE: US abdomen limited DATE OF EXAM: 03/10/2020 COMPARISON: NONE CLINICAL HISTORY: assess for fluid pocket. Mild fluid. IMPRESSION: Small amount of ascites noted.
[2020-03-10 09:15] LABS: Platelet Count 78 k/uL (150-450)
--- NOTE | 2020-03-10 15:38 | US ---
EXAMINATION TYPE: US paracentesis abd w/image DATE OF EXAM: 03/10/2020 CLINICAL HISTORY: Ascites. Concern for infection. HIGH RISK OB: Dr. Hanane Ashley. Preprocedure preliminary sonographic imaging demonstrated small volume ascites. The procedure was discussed with the patient. The risks, complications, benefits, and alternatives we re discussed and any questions were answered. Informed consent was obtained. The patient was placed s upine on the ultrasound table and prepped and draped in the usual sterile fashion. All elements of maximal barrier technique were utilized. Under ultrasound guidance, access into the right upper quadrant was obtained with a 5 [place] one-step centesis catheter. Approximately 900 liters of clear serous fluid was removed. Catheter was removed and sterile bandage was applied. The patient was stable throughout the procedure and remained stable upon discharge from Department of Radiology. IMPRESSION: Successful ultrasound-guided diagnostic paracentesis, with removal of 0.9 liters of clear serous flui d.
[2020-03-10 17:41] LABS: Appearance,BF Clear; Nucleated Cells, Body Fluid 25 /uL; RBC, Body Fluid 485 /uL
[2020-03-10 17:47] LABS: Mononuclear WBC,Body Fluid 92 %; Polynuclear WBC,Body Fluid 8 %; Total Cells Counted,Body Fluid 100
[2020-03-10] MEDS: THIAMINE 100 MG TAB PO SCH (18:02)
--- NOTE | 2020-03-10 18:40 | P.PN ---
Subjective Progress Note Date: 03/10/20 Patient was seen and evaluated at the bedside on 03/10. She reports continued mild abdominal discomfort. Denied fever, chills, vomiting, chest pain, shortness of breath. Objective - Vital Signs Vital signs: Vital Signs Temp 98.8 F 03/10/20 15:00 Pulse 124 H 03/10/20 15:00 Resp 18 03/10/20 15:00 BP 93/59 03/10/20 15:00 Pulse Ox 100 03/10/20 15:00 Intake & Output 03/09/20 03/10/20 03/10/20 18:59 06:59 18:59 Weight 68.3 kg Other: # Voids 1 3 - Exam General: Jaundiced female, in no acute distress, appears stated age, normal weight HEENT: NC/AT, scleral icterus present, dry conjunctiva, no lid-lag, PERRLA Cardiovascular: S1/S2 wnl, no murmurs, rubs, or gallops Lungs: Clear to auscultation, normal respiratory effort, no accessory muscle use Abdominal: Soft, non-tender, mildly distended, no guarding, rebound, or rigidity Skin: Jaundiced Extremities: No edema or contractures Psychiatric: Alert and oriented to person, place and time, appropriate affect Neuro: CN II-XII grossly intact, Strength 5/5 in all 4 extremities, Speech intact, Sensation to light touch grossly intact throughout - Labs CBC & Chem 7: 03/10/20 07:57 03/10/20 07:57 Labs: Abnormal Lab Results - Last 24 Hours (Table) 03/10/20 03/10/20 03/10/20 Range/Units 02:11 07:57 07:57 RBC 2.33 L (3.80-5.40) m/uL Hgb 7.5 L (11.4-16.0) gm/dL Hct 23.2 L (34.0-46.0) % RDW 16.7 H (11.5-15.5) % Plt Count 78 L D (150-450) k/uL PT 19.1 H (9.0-12.0) sec INR 2.0 H (<1.2) BUN (7-17) mg/dL Creatinine (0.52-1.04) mg/dL Glucose (74-99) mg/dL Calcium (8.4-10.2) mg/dL Phosphorus (2.5-4.5) mg/dL Magnesium (1.6-2.3) mg/dL Total Bilirubin (0.2-1.3) mg/dL AST (14-36) U/L Alkaline Phosphatase (38-126) U/L Albumin (3.5-5.0) g/dL Urine Appearance Cloudy H (Clear) Urine Protein Trace H (Negative) Urine Bilirubin 2+ H (Negative) Ur Leukocyte Esterase Moderate H (Negative) Urine WBC 8 H (0-5) /hpf Ur Squamous Epith Cells 6 H (0-4) /hpf Amorphous Sediment Rare H (None) /hpf Urine Mucus Rare H (None) /hpf 03/10/20 Range/Units 07:57 RBC (3.80-5.40) m/uL Hgb (11.4-16.0) gm/dL Hct (34.0-46.0) % RDW (11.5-15.5) % Plt Count (150-450) k/uL PT (9.0-12.0) sec INR (<1.2) BUN 3 L (7-17) mg/dL Creatinine 0.41 L (0.52-1.04) mg/dL Glucose 130 H (74-99) mg/dL Calcium 7.8 L (8.4-10.2) mg/dL Phosphorus 5.3 H (2.5-4.5) mg/dL Magnesium 1.5 L (1.6-2.3) mg/dL Total Bilirubin 10.2 H (0.2-1.3) mg/dL AST 162 H (14-36) U/L Alkaline Phosphatase 308 H (38-126) U/L Albumin 2.6 L (3.5-5.0) g/dL Urine Appearance (Clear) Urine Protein (Negative) Urine Bilirubin (Negative) Ur Leukocyte Esterase (Negative) Urine WBC (0-5) /hpf Ur Squamous Epith Cells (0-4) /hpf Amorphous Sediment (None) /hpf Urine Mucus (None) /hpf Assessment and Plan Plan: Acute liver failure in setting of chronic alcohol abuse -Status post diagnostic paracentesis with 0.9 L removal -Continue with CIWA protocol -Seizure, aspiration, fall precautions -Continue with thiamine -Follow up blood cultures -Continue with lactulose and monitor ammonia -GI consulted, recommendations pending Bicytopenia -Due to chronic L call abuse -Monitor for now
[2020-03-10] MEDS: RIFAXIMIN 550 MG TABLET PO SCH (22:28)
[2020-03-11] MEDS: LORazepam 2 MG/ML INJ IV PRN ×7 (00:08→21:54)
[2020-03-11] MEDS: HEPARIN SODIUM,PORCINE 5,000 UNIT/ML 1 ML VIAL SQ SCH ×3 (00:09→16:12)
[2020-03-11] MEDS ORDERED: ACETAMINOPHEN TAB 500 MG TAB PO PRN (00:25)
[2020-03-11] MEDS ORDERED: chlordiazePOXIDE 25 MG CAP PO STA (00:27)
[2020-03-11 01:04] LABS: Total Protein, Body Fluid 820 mg/dL
[2020-03-11 01:17] LABS: Glucose, Body Fluid 112 mg/dL
[2020-03-11] MEDS: SODIUM CHLORIDE 0.9% 1,000 ML IV SCH ×2 (07:26→18:19)
[2020-03-11] MEDS: LACTULOSE 20 GM/30 ML CUP PO SCH ×4 (07:33→21:55)
[2020-03-11] MEDS: FOLIC ACID 1 MG TAB PO SCH (07:33)
[2020-03-11] MEDS: THIAMINE 100 MG TAB PO SCH ×2 (07:33→16:59)
[2020-03-11] MEDS: RIFAXIMIN 550 MG TABLET PO SCH ×2 (07:34→21:55)
[2020-03-11] MEDS: PANTOPRAZOLE 40 MG TABLET PO SCH (07:34)
[2020-03-11] MEDS: levETIRAcetam 500 MG TAB PO SCH ×2 (07:34→21:55)
[2020-03-11] MEDS: NICOTINE 14MG/24HR PATCH TRANSDERM SCH (07:34)
[2020-03-11] MEDS: SPIRONOLACTONE 25 MG TAB PO SCH (07:38)
[2020-03-11 08:05] LABS: ALT 32 U/L (4-34); AST 160 U/L (14-36); African American GFR (CKD) >90 (>60 ml/min/1.73 sqM); Albumin 2.2 g/dL (3.5-5.0); Alkaline Phosphatase 297 U/L (38-126); Anion Gap 4 mmol/L; Blood Urea Nitrogen 2 mg/dL (7-17); Calcium 8.1 mg/dL (8.4-10.2); Carbon Dioxide 26 mmol/L (22-30); Chloride 106 mmol/L (98-107); Glucose 82 mg/dL (74-99); Non-African American GFR(CKD) >90 (>60 ml/min/1.73 sqM); Potassium 3.5 mmol/L (3.5-5.1); Sodium 136 mmol/L (137-145); Total Protein 6.4 g/dL (6.3-8.2)
[2020-03-11 08:12] LABS: Anisocytosis Slight; MCHC 33.5 g/dL (31.0-37.0); MCV 101.6 fL (80.0-100.0); Macrocytosis Slight; Mean Platelet Volume 8.3; RBC 1.84 m/uL (3.80-5.40); RDW 16.6 % (11.5-15.5); WBC 3.1 k/uL (3.8-10.6)
[2020-03-11 08:19] LABS: HGB 6.3 gm/dL (11.4-16.0)
[2020-03-11 08:20] LABS: HCT 18.7 % (34.0-46.0); Platelet Count 50 k/uL (150-450)
[2020-03-11] MEDS: MAGNESIUM OXIDE 400 MG TAB PO SCH ×2 (09:51→21:55)
[2020-03-11] MEDS ORDERED: FUROSEMIDE 40 MG TAB PO SCH (10:00)
--- NOTE | 2020-03-11 10:56 | P.PN ---
Subjective Progress Note Date: 03/11/20 Patient is awake and alert. She appeared confused and was unable to answer my questions appropriately. Her hemoglobin this morning dropped to 6.3. No blood in bowel movement or dark stool reported. Objective - Vital Signs Vital signs: Vital Signs Temp 97.9 F 03/11/20 07:00 Pulse 125 H 03/11/20 07:00 Resp 16 03/11/20 07:00 BP 99/65 03/11/20 07:00 Pulse Ox 98 03/11/20 07:00 Intake & Output 03/10/20 03/11/20 03/11/20 18:59 06:59 18:59 Other: Voiding Method Bedside Commode # Voids 3 0 - Exam General: The patient is awake and alert, she appeared confused Eye: Ictirec conjunctiva bilaterally Neck: The neck is supple, there is no JVD. Cardiovascular: Normal S1-S2, no S3-S4, no murmurs. Respiratory: Lungs clear to auscultation bilaterally Gastrointestinal: Abdomen is soft, nontender Musculoskeletal: There is no pedal edema. Skin: Skin is warm and dry - Labs CBC & Chem 7: 03/11/20 07:14 03/11/20 07:14 Labs: Abnormal Lab Results - Last 24 Hours (Table) 03/11/20 03/11/20 03/11/20 Range/Units 07:14 07:14 07:14 WBC 3.1 L (3.8-10.6) k/uL RBC 1.84 L (3.80-5.40) m/uL Hgb 6.3 L* (11.4-16.0) gm/dL Hct 18.7 L* (34.0-46.0) % MCV 101.6 H (80.0-100.0) fL RDW 16.6 H (11.5-15.5) % Plt Count 50 L (150-450) k/uL Sodium 136 L (137-145) mmol/L BUN 2 L (7-17) mg/dL Creatinine 0.42 L (0.52-1.04) mg/dL Calcium 8.1 L (8.4-10.2) mg/dL Total Bilirubin 10.0 H (0.2-1.3) mg/dL AST 160 H (14-36) U/L Alkaline Phosphatase 297 H (38-126) U/L Ammonia 50 H (<30) umol/L Albumin 2.2 L (3.5-5.0) g/dL Crossmatch 03/11/20 Range/Units 09:00 WBC (3.8-10.6) k/uL RBC (3.80-5.40) m/uL Hgb (11.4-16.0) gm/dL Hct (34.0-46.0) % MCV (80.0-100.0) fL RDW (11.5-15.5) % Plt Count (150-450) k/uL Sodium (137-145) mmol/L BUN (7-17) mg/dL Creatinine (0.52-1.04) mg/dL Calcium (8.4-10.2) mg/dL Total Bilirubin (0.2-1.3) mg/dL AST (14-36) U/L Alkaline Phosphatase (38-126) U/L Ammonia (<30) umol/L Albumin (3.5-5.0) g/dL Crossmatch See Detail Microbiology - Last 24 Hours (Table) 03/10/20 14:30 Gram Stain - Preliminary Ascites Fluid Body Fluid Culture - Preliminary 03/10/20 01:48 Blood Culture - Preliminary Blood No Growth after 24 hours 03/10/20 14:40 Anaerobic Culture - Preliminary Paracentesis Fluid Assessment and Plan Assessment: 1. Alcohol abuse with acute alcohol withdrawal syndrome: Counseled extensively to quit. [facility] protocol as needed. 2. Acute hepatic encephalopathy grade 1: Continue lactulose and rifaximin. Daily ammonia level. 3. End-stage liver disease secondary to alcohol hepatitis: Awaiting GI evaluation. Bilirubin improving compared to last week but remain high. 4. Ascites, status post paracentesis with 0.9 L removal. Continue Lasix daily. 5. Hypomagnesemia, replaced. Repeat lab work in the morning 6. Seizure disorder: Maintained on Keppra. Seizure disorder in place. 7. Acute anemia, with possible acute blood loss anemia awaiting GI evaluation. 1 units of blood ordered today for hemoglobin of 6.3. We'll monitor CBC daily. Continue IV Protonix.
[2020-03-11] MEDS: PANTOPRAZOLE 40 MG/10 ML VIAL IVP SCH (11:39)
[2020-03-11 12:05] LABS: ALT 30 U/L (4-34); AST 158 U/L (14-36); African American GFR (CKD) >90 (>60 ml/min/1.73 sqM); Albumin 2.3 g/dL (3.5-5.0); Alkaline Phosphatase 290 U/L (38-126); Anion Gap 7 mmol/L; Blood Urea Nitrogen 3 mg/dL (7-17); Calcium 8.5 mg/dL (8.4-10.2); Carbon Dioxide 22 mmol/L (22-30); Chloride 106 mmol/L (98-107); Glucose 97 mg/dL (74-99); Non-African American GFR(CKD) >90 (>60 ml/min/1.73 sqM); Potassium 3.8 mmol/L (3.5-5.1); Sodium 135 mmol/L (137-145); Total Bilirubin 10.6 mg/dL (0.2-1.3); Total Protein 6.5 g/dL (6.3-8.2)
[2020-03-11] MEDS: ONDANSETRON 4 MG/2 ML VIAL IVP PRN (13:56)
--- NOTE | 2020-03-11 14:43 | P.PN ---
Subjective Progress Note Date: 03/10/20 Principal diagnosis: Alcoholic hepatitis Attempt was made to see the patient, however she was not available as she was undergoing paracentesis. We'll see the patient tomorrow. Objective - Vital Signs Vital signs: Vital Signs Temp 97.9 F 03/11/20 07:00 Pulse 125 H 03/11/20 07:00 Resp 16 03/11/20 07:00 BP 99/65 03/11/20 07:00 Pulse Ox 98 03/11/20 07:00 Intake & Output 03/10/20 03/11/20 03/11/20 18:59 06:59 18:59 Intake Total 0 Balance 0 Intake: Blood Product 0 Rc As-1 Unit 0 [id number] Other: Voiding Method Bedside Commode # Voids 3 0 - Labs CBC & Chem 7: 03/11/20 07:14 03/11/20 11:16 Labs: Abnormal Lab Results - Last 24 Hours (Table) 03/11/20 03/11/20 03/11/20 Range/Units 07:14 07:14 07:14 WBC 3.1 L (3.8-10.6) k/uL RBC 1.84 L (3.80-5.40) m/uL Hgb 6.3 L* (11.4-16.0) gm/dL Hct 18.7 L* (34.0-46.0) % MCV 101.6 H (80.0-100.0) fL RDW 16.6 H (11.5-15.5) % Plt Count 50 L (150-450) k/uL Sodium 136 L (137-145) mmol/L BUN 2 L (7-17) mg/dL Creatinine 0.42 L (0.52-1.04) mg/dL Calcium 8.1 L (8.4-10.2) mg/dL Total Bilirubin 10.0 H (0.2-1.3) mg/dL AST 160 H (14-36) U/L Alkaline Phosphatase 297 H (38-126) U/L Ammonia 50 H (<30) umol/L Albumin 2.2 L (3.5-5.0) g/dL Crossmatch 03/11/20 03/11/20 Range/Units 09:00 11:16 WBC (3.8-10.6) k/uL RBC (3.80-5.40) m/uL Hgb (11.4-16.0) gm/dL Hct (34.0-46.0) % MCV (80.0-100.0) fL RDW (11.5-15.5) % Plt Count (150-450) k/uL Sodium 135 L (137-145) mmol/L BUN 3 L (7-17) mg/dL Creatinine 0.43 L (0.52-1.04) mg/dL Calcium (8.4-10.2) mg/dL Total Bilirubin 10.6 H (0.2-1.3) mg/dL AST 158 H (14-36) U/L Alkaline Phosphatase 290 H (38-126) U/L Ammonia (<30) umol/L Albumin 2.3 L (3.5-5.0) g/dL Crossmatch See Detail Microbiology - Last 24 Hours (Table) 03/10/20 14:30 Gram Stain - Preliminary Ascites Fluid Body Fluid Culture - Preliminary 03/10/20 01:48 Blood Culture - Preliminary Blood No Growth after 24 hours 03/10/20 14:40 Anaerobic Culture - Preliminary Paracentesis Fluid
[2020-03-12] MEDS: HEPARIN SODIUM,PORCINE 5,000 UNIT/ML 1 ML VIAL SQ SCH ×4 (00:27→23:36)
[2020-03-12] MEDS: LORazepam 2 MG/ML INJ IV PRN ×6 (03:05→23:49)
[2020-03-12] MEDS: SODIUM CHLORIDE 0.9% 1,000 ML IV SCH (03:05)
[2020-03-12] MEDS: ONDANSETRON 4 MG/2 ML VIAL IVP PRN ×2 (03:40→17:44)
[2020-03-12] MEDS ORDERED: PHYTONADIONE 10 MG in SODIUM CHLORIDE 0.9% 50 ML IVPB STA (06:43)
--- NOTE | 2020-03-12 06:48 | P.CONS ---
History of Present Illness - Reason for Consult Consult date: 03/11/20 Alcoholic hepatitis, encephalopathy Requesting physician: Alannah Jacob - Chief Complaint Alcohol withdrawal, confusion - History of Present Illness 29-year-old female with a medical history significant for alcohol abuse, with multiple recent admissions for acute alcoholic hepatitis with ascites, and medical noncompliance who presented as a transfer from an outside facility for evaluation of alcohol withdrawal and hepatic encephalopathy. Patient had been evaluated for increasing confusion and on presentation to our hospital patient had a ammonia level of 50. Previously the patient had been transferred to [facility] and undergone paracentesis. On her last admission to this hospital the patient was reporting alcohol abstinence for approximately 2 months however she does admit that she has resumed drinking. She denies any GI bleeding with no hematemesis, coffee-ground emesis, hematochezia or melena but has remained persistently anemic. The patient is status post paracentesis yesterday was 0.9 L of ascitic fluid removed. The patient has not followed up with gastroenterology after discharge from the hospital. She is unclear about her medications which she is supposed to be taking at home. No other acute complaints at this time. Laboratory evaluation on presentation significant for WBC 4.6, hemoglobin 7.5, platelet count 70,000, INR 2, total bilirubin 7.8, alkaline phosphatase 308, AST 162 and ALT 32 with a creatinine of 0.8. Review of Systems REVIEW OF SYSTEMS: CONSTITUTIONAL: Denies any fevers, chills, weight change but she does report fatigue and lethargy. CARDIOVASCULAR: Denies any chest pain, palpitations high or low blood pressures RESPIRATORY: Denies any shortness of breath, hemoptysis or cough. GENITOURINARY: No dysuria or hematuria, but she does report dark colored urine. MUSCULOSKELETAL: No focal weakness reported. SKIN: Denies any new rashes or lesions, jaundice or pallor. PSYCHIATRIC: The patient has a history of drug abuse and alcohol abuse. NEUROLOGY: Denies headache, denies any new focal deficits, patient confused on presentation. EARS/NOSE/THROAT: No recent hearing change, congestion, nasal discharge or sore throat. EYES: No pain in eyes, discharge or change in vision. GASTROINTESTINAL: As per HPI. Past Medical History Past Medical History: Liver Disease, Pneumonia, Seizure Disorder Additional Past Medical History / Comment(s): Past obstetrical history significant for 1 section for failure to progress. ETOH abuse. Bronchitis, Sepsis (2013) History of Any Multi-Drug Resistant Organisms: None Reported Past Surgical History: Section, Orthopedic Surgery Additional Past Surgical History / Comment(s): 2 rt foot sx in past Past Anesthesia/Blood Transfusion Reactions: Motion Sickness Past Psychological History: ADD/ADHD, Anxiety Past Alcohol Use History: Abuse, Daily Past Drug Use History: None Reported - Past Family History Father Family Medical History: No Reported History Additional Family Medical History / Comment(s): anxiety Mother Family Medical History: No Reported History Medications and Allergies Home Medications Medication Instructions Recorded Confirmed Type Folic Acid 1 mg PO DAILY 02/10/20 03/10/20 History Lactulose 30 gm PO QID 02/10/20 03/10/20 History Midodrine [ProAmatine] 5 mg PO AC-TID 02/10/20 03/10/20 History Ondansetron HCl [Zofran] 4 mg PO Q12H PRN 02/10/20 03/10/20 History Pantoprazole [Protonix] 40 mg PO DAILY PRN 02/10/20 03/10/20 History Spironolactone [Aldactone] 25 mg PO DAILY 02/10/20 03/10/20 History Thiamine [Vitamin B-1] 100 mg PO DAILY 02/10/20 03/10/20 History levETIRAcetam [Keppra] 750 mg PO BID 02/10/20 03/10/20 History Furosemide [Lasix] 40 mg PO DAILY 30 Days #30 tab 02/11/20 03/10/20 Rx Potassium Chloride ER [K-Dur 20] 20 meq PO DAILY 30 Days #30 tab 02/11/20 03/10/20 Rx Multivitamins, Thera [Multivitamin 1 tab PO DAILY 03/10/20 03/10/20 History (formulary)] Trimethobenzamide HCl [Tigan] 300 mg PO BID PRN 03/10/20 03/10/20 History traMADol HCL 50 mg PO BID PRN 03/10/20 03/10/20 History Allergies Allergy/AdvReac Type Severity Reaction Status Date / Time ceftriaxone Allergy Anaphylaxis Verified 03/10/20 07:04 Penicillins Allergy Rash/Hives Verified 03/10/20 07:04 Physical Exam Vitals: Vital Signs Temp Pulse Resp BP Pulse Ox 03/10/20 10:34 131 H 94/58 99 03/10/20 07:00 98.1 F 142 H 16 87/50 98 03/10/20 06:20 14 03/10/20 03:15 126 H 96/47 96 03/10/20 00:00 98.7 F 115 H 14 101/52 99 Intake and Output 03/09/20 03/10/20 03/10/20 22:59 06:59 14:59 Other: # Voids 1 Weight 68.3 kg On physical examination, patient appears comfortable in no apparent distress. HEAD: Normocephalic, atraumatic. EYES: Scleral icterus. No conjunctival injection. MOUTH: No lesions, tongue midline. NECK: Trachea midline, no gross abnormalities. CHEST: Decreased air entry in all lung [place]. HEART: Tachycardic, regular rhythm. ABDOMEN: Soft, nondistended, mildly tender to palpation. Bowel sounds are positive. No organomegaly. No guarding or rigidity. EXTREMITIES: Bilateral pedal edema. SKIN: No rashes, jaundice. NEUROLOGIC: Alert and oriented to person with asterixis noted. No focal deficits. Results CBC & Chem 7: 03/11/20 07:14 03/11/20 11:16 Labs: Abnormal Lab Results - Last 24 Hours (Table) 03/10/20 03/10/20 03/10/20 Range/Units 02:11 07:57 07:57 RBC 2.33 L (3.80-5.40) m/uL Hgb 7.5 L (11.4-16.0) gm/dL Hct 23.2 L (34.0-46.0) % RDW 16.7 H (11.5-15.5) % Plt Count 78 L D (150-450) k/uL PT 19.1 H (9.0-12.0) sec INR 2.0 H (<1.2) BUN (7-17) mg/dL Creatinine (0.52-1.04) mg/dL Glucose (74-99) mg/dL Calcium (8.4-10.2) mg/dL Phosphorus (2.5-4.5) mg/dL Magnesium (1.6-2.3) mg/dL Total Bilirubin (0.2-1.3) mg/dL AST (14-36) U/L Alkaline Phosphatase (38-126) U/L Albumin (3.5-5.0) g/dL Urine Appearance Cloudy H (Clear) Urine Protein Trace H (Negative) Urine Bilirubin 2+ H (Negative) Ur Leukocyte Esterase Moderate H (Negative) Urine WBC 8 H (0-5) /hpf Ur Squamous Epith Cells 6 H (0-4) /hpf Amorphous Sediment Rare H (None) /hpf Urine Mucus Rare H (None) /hpf 03/10/20 Range/Units 07:57 RBC (3.80-5.40) m/uL Hgb (11.4-16.0) gm/dL Hct (34.0-46.0) % RDW (11.5-15.5) % Plt Count (150-450) k/uL PT (9.0-12.0) sec INR (<1.2) BUN 3 L (7-17) mg/dL Creatinine 0.41 L (0.52-1.04) mg/dL Glucose 130 H (74-99) mg/dL Calcium 7.8 L (8.4-10.2) mg/dL Phosphorus 5.3 H (2.5-4.5) mg/dL Magnesium 1.5 L (1.6-2.3) mg/dL Total Bilirubin 10.2 H (0.2-1.3) mg/dL AST 162 H (14-36) U/L Alkaline Phosphatase 308 H (38-126) U/L Albumin 2.6 L (3.5-5.0) g/dL Urine Appearance (Clear) Urine Protein (Negative) Urine Bilirubin (Negative) Ur Leukocyte Esterase (Negative) Urine WBC (0-5) /hpf Ur Squamous Epith Cells (0-4) /hpf Amorphous Sediment (None) /hpf Urine Mucus (None) /hpf US - abdomen: report reviewed (Ultrasound of the abdomen with 0.9 L of ascitic fluid removed) Assessment and Plan (1) Alcoholic hepatitis Narrative/Plan: 29-year-old female with medical history significant for alcohol abuse with multiple hospitalizations for alcoholic hepatitis with encephalopathy and a scites previously transferred to [facility], who presented as a transfer from outside facility for encephalopathy and alcohol withdrawal. The patient had previously reported 2 months of abstinence from alcohol but resumed drinking prior to coming back to the hospital. The patient had been prescribed medicines including diuretics and lactulose for encephalopathy as an outpatient but is unclear if she was compliant with these medications. The patient is a poor historian. She has not followed up with gastroenterology in the office after discharge and has continued to drink as stated. On current admission she has been reinitiated on diuretic therapy with Aldactone and Lasix has been held due to persistent hypotension and also initiated on lactulose and rifaximin therapy. Paracentesis has been ordered with fluid studies with 0.9 L [place] fluid removed. Current Visit: No Status: Acute Code(s): K70.10 - ALCOHOLIC HEPATITIS WITHOUT ASCITES SNOMED Code(s): 557382690 (2) Hepatic encephalopathy Current Visit: Yes Status: Acute Code(s): K72.90 - HEPATIC FAILURE, UNSPECIFIED WITHOUT COMA SNOMED Code(s): 53345651 (3) Acalculous cholecystitis Current Visit: No Status: Acute Code(s): K81.9 - CHOLECYSTITIS, UNSPECIFIED SNOMED Code(s): 34724901 (4) Ascites Current Visit: No Status: Acute Code(s): R18.8 - OTHER ASCITES SNOMED Code(s): 572601469 (5) Chronic anemia Current Visit: No Status: Acute Code(s): D64.9 - ANEMIA, UNSPECIFIED SNOMED Code(s): 950222441 (6) ETOH abuse Current Visit: No Status: Acute Code(s): F10.10 - ALCOHOL ABUSE, UNCOMPLICATED SNOMED Code(s): 78788214 (7) Elevated liver enzymes Current Visit: No Status: Acute Code(s): R74.8 - ABNORMAL LEVELS OF OTHER SERUM ENZYMES SNOMED Code(s): 882636809 Plan: Supportive care Okay for sodium restricted diet Continue to monitor CBC, BMP, LFTs and INR Vitamin K ordered Alcohol abstinence Continue to monitor and treated for alcohol withdrawal Low-dose midrodrine therapy initiated in the setting of persistent hypotension Continue Aldactone therapy, consideration for titration of medication as well as addition of Lasix dependent on electrolytes, kidney function and blood pressures Packed red blood cells have been ordered as patient's hemoglobin fell today, they're clinically no signs or symptoms of GI bleeding, can consider EGD when medically stable either prior to discharge or in the outpatient setting Overall poor prognosis in the setting of continued alcohol use Thank you for allowing us to participate in the care of the patient we will continue to follow
[2020-03-12 07:20] LABS: INR 2.1 (<1.2); Prothrombin Time 20.3 sec (9.0-12.0)
[2020-03-12 07:22] LABS: Anisocytosis Slight; Basophils % (A) 0 %; Eosinophils # (A) 0.1 k/uL (0-0.7); Eosinophils % (A) 1 %; HCT 25.9 % (34.0-46.0); Lymphocytes # (A) 0.4 k/uL (1.0-4.8); Lymphocytes % (A) 8 %; MCH 32.3 pg (25.0-35.0); MCHC 32.3 g/dL (31.0-37.0); MCV 100.1 fL (80.0-100.0); Macrocytosis Slight; Mean Platelet Volume 8.7; Monocytes # (A) 0.3 k/uL (0-1.0); Monocytes % (A) 6 %; Neutrophils # (A) 4.7 k/uL (1.3-7.7); Neutrophils % (A) 84 %; RBC 2.58 m/uL (3.80-5.40); RDW 17.6 % (11.5-15.5); WBC 5.6 k/uL (3.8-10.6)
[2020-03-12 07:25] LABS: HGB 8.4 gm/dL (11.4-16.0)
[2020-03-12 07:26] LABS: Platelet Count 55 k/uL (150-450)
[2020-03-12] MEDS ORDERED: Magnesium Replacement Protocol 1 EACH MISC MISCELLANE PRN (08:14)
[2020-03-12] MEDS ORDERED: Potassium Replacement Protocol 1 EACH MISC MISCELLANE PRN (08:14)
[2020-03-12] MEDS: PANTOPRAZOLE 40 MG/10 ML VIAL IVP SCH (08:31)
[2020-03-12] MEDS: LACTULOSE 20 GM/30 ML CUP PO SCH ×4 (08:32→20:56)
[2020-03-12] MEDS: NICOTINE 14MG/24HR PATCH TRANSDERM SCH (08:32)
[2020-03-12] MEDS: MAGNESIUM OXIDE 400 MG TAB PO SCH ×2 (08:32→20:55)
[2020-03-12] MEDS: MAGNESIUM SULFATE-D5W PMX 1 GM in DEXTROSE/WATER 1 100ML.BAG IVPB SCH ×2 (08:33→09:57)
[2020-03-12] MEDS: SPIRONOLACTONE 25 MG TAB PO SCH (08:33)
[2020-03-12] MEDS: FOLIC ACID 1 MG TAB PO SCH (08:33)
[2020-03-12] MEDS: levETIRAcetam 500 MG TAB PO SCH ×2 (08:33→20:56)
[2020-03-12] MEDS: THIAMINE 100 MG TAB PO SCH ×2 (08:33→17:19)
[2020-03-12] MEDS: MIDODRINE 5 MG TAB PO SCH ×3 (08:33→17:19)
[2020-03-12] MEDS: RIFAXIMIN 550 MG TABLET PO SCH ×2 (08:34→20:56)
[2020-03-12] MEDS ORDERED: SODIUM CHLORIDE 0.9% 500 ML 500 ML IV ONE (09:21)
--- NOTE | 2020-03-12 09:30 | P.PN ---
Subjective Progress Note Date: 03/12/20 Patient is awake and alert. She is still confused. Heart rate up in the 140s. Hemoglobin is stable today. Objective - Vital Signs Vital signs: Vital Signs Temp 98.4 F 03/12/20 07:00 Pulse 140 H 03/12/20 07:00 Resp 18 03/12/20 07:00 BP 91/52 03/12/20 07:00 Pulse Ox 96 03/12/20 07:00 Intake & Output 03/11/20 03/12/20 03/12/20 18:59 06:59 18:59 Intake Total 310 300 Output Total 2 Balance 310 298 Intake: Oral 300 Blood Product 310 Rc As-1 Unit 310 [id number] Output: Stool 0 Urine/Stool Mix 2 Other: Voiding Method Bedside Commode # Voids 3 1 # Bowel Movements 1 - Exam General: The patient is awake and alert, she appeared confused Eye: Ictirec conjunctiva bilaterally Neck: The neck is supple, there is no JVD. Cardiovascular: Normal S1-S2, no S3-S4, no murmurs. Respiratory: Lungs clear to auscultation bilaterally Gastrointestinal: Abdomen is soft, nontender Musculoskeletal: There is no pedal edema. Skin: Skin is warm and dry - Labs CBC & Chem 7: 03/12/20 06:50 03/11/20 11:16 Labs: Abnormal Lab Results - Last 24 Hours (Table) 03/11/20 03/11/20 03/12/20 Range/Units 09:00 11:16 06:50 RBC 2.58 L (3.80-5.40) m/uL Hgb 8.4 L D (11.4-16.0) gm/dL Hct 25.9 L (34.0-46.0) % MCV 100.1 H (80.0-100.0) fL RDW 17.6 H (11.5-15.5) % Plt Count 55 L (150-450) k/uL Lymphocytes # 0.4 L (1.0-4.8) k/uL PT (9.0-12.0) sec INR (<1.2) Sodium 135 L (137-145) mmol/L BUN 3 L (7-17) mg/dL Creatinine 0.43 L (0.52-1.04) mg/dL Magnesium (1.6-2.3) mg/dL Total Bilirubin 10.6 H (0.2-1.3) mg/dL AST 158 H (14-36) U/L Alkaline Phosphatase 290 H (38-126) U/L Ammonia (<30) umol/L Albumin 2.3 L (3.5-5.0) g/dL Crossmatch See Detail 03/12/20 03/12/20 03/12/20 Range/Units 06:50 06:50 06:50 RBC (3.80-5.40) m/uL Hgb (11.4-16.0) gm/dL Hct (34.0-46.0) % MCV (80.0-100.0) fL RDW (11.5-15.5) % Plt Count (150-450) k/uL Lymphocytes # (1.0-4.8) k/uL PT 20.3 H (9.0-12.0) sec INR 2.1 H (<1.2) Sodium (137-145) mmol/L BUN (7-17) mg/dL Creatinine (0.52-1.04) mg/dL Magnesium 1.3 L (1.6-2.3) mg/dL Total Bilirubin (0.2-1.3) mg/dL AST (14-36) U/L Alkaline Phosphatase (38-126) U/L Ammonia 55 H (<30) umol/L Albumin (3.5-5.0) g/dL Crossmatch Microbiology - Last 24 Hours (Table) 03/10/20 01:48 Blood Culture - Preliminary Blood No Growth after 48 hours 03/10/20 14:30 Gram Stain - Preliminary Ascites Fluid Body Fluid Culture - Preliminary Assessment and Plan Assessment: 1. Alcohol abuse with acute alcohol withdrawal syndrome: Counseled extensively to quit. [facility] protocol as needed. 2. Acute hepatic encephalopathy: Continue lactulose and rifaximin. Daily ammonia level, currently within acceptable range 3. 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 Bilirubin improving compared to last week but remain high. 4. Ascites, status post paracentesis with 0.9 L removal. Continue Lasix daily. 5. Hypomagnesemia, replaced. Repeat lab work in the morning 6. Seizure disorder: Maintained on Keppra. Seizure disorder in place. 7. Acute anemia, with possible acute blood loss anemia awaiting GI evaluation. 1 units of blood ordered today for hemoglobin of 6.3. We'll monitor CBC daily. Continue IV Protonix. 8. Sinus tachycardia: Probably secondary to dehydration. I would challenge with IV fluid bolus. Check thyroid function test. 9. Coagulopathy: Vitamin K ordered today per GI. We will continue to monitor INR. 10. Thrombocytopenia, secondary to underlying liver disease. We will continue to monitor Patient's overall condition is guarded. No family members around to be updated about her current condition. I would discuss with GI if she needs to be transferred to a tertiary care facility
[2020-03-12 10:35] LABS: ALT 33 U/L (4-34); AST 154 U/L (14-36); African American GFR (CKD) >90 (>60 ml/min/1.73 sqM); Albumin 2.5 g/dL (3.5-5.0); Alkaline Phosphatase 345 U/L (38-126); Anion Gap 7 mmol/L; Blood Urea Nitrogen 2 mg/dL (7-17); Calcium 8.5 mg/dL (8.4-10.2); Carbon Dioxide 20 mmol/L (22-30); Chloride 107 mmol/L (98-107); Glucose 101 mg/dL (74-99); Non-African American GFR(CKD) >90 (>60 ml/min/1.73 sqM); Sodium 134 mmol/L (137-145); Total Bilirubin 11.1 mg/dL (0.2-1.3); Total Protein 7.3 g/dL (6.3-8.2)
[2020-03-12 10:37] LABS: Potassium 3.8 mmol/L (3.5-5.1)
[2020-03-13] MEDS: LORazepam 2 MG/ML INJ IV PRN ×3 (04:33→20:44)
[2020-03-13 08:17] LABS: Anisocytosis Slight; Basophils % (A) 0 %; Eosinophils # (A) 0.1 k/uL (0-0.7); Eosinophils % (A) 3 %; HGB 7.1 gm/dL (11.4-16.0); Lymphocytes # (A) 0.7 k/uL (1.0-4.8); Lymphocytes % (A) 17 %; MCH 32.3 pg (25.0-35.0); MCHC 32.1 g/dL (31.0-37.0); MCV 100.5 fL (80.0-100.0); Macrocytosis Slight; Mean Platelet Volume 8.5; Monocytes # (A) 0.3 k/uL (0-1.0); Monocytes % (A) 6 %; Neutrophils # (A) 3.1 k/uL (1.3-7.7); Neutrophils % (A) 73 %; RBC 2.19 m/uL (3.80-5.40); RDW 18.5 % (11.5-15.5); WBC 4.3 k/uL (3.8-10.6)
[2020-03-13 08:24] LABS: Platelet Count 59 k/uL (150-450)
[2020-03-13 08:25] LABS: INR 2.1 (<1.2); Prothrombin Time 20.3 sec (9.0-12.0)
[2020-03-13] MEDS: HEPARIN SODIUM,PORCINE 5,000 UNIT/ML 1 ML VIAL SQ SCH ×2 (08:35→16:45)
[2020-03-13] MEDS: PANTOPRAZOLE 40 MG/10 ML VIAL IVP SCH (08:35)
[2020-03-13] MEDS: LACTULOSE 20 GM/30 ML CUP PO SCH ×4 (08:35→22:12)
[2020-03-13] MEDS: RIFAXIMIN 550 MG TABLET PO SCH ×2 (08:36→20:43)
[2020-03-13] MEDS: FOLIC ACID 1 MG TAB PO SCH (08:36)
[2020-03-13] MEDS: MIDODRINE 5 MG TAB PO SCH ×3 (08:36→16:48)
[2020-03-13] MEDS: SPIRONOLACTONE 25 MG TAB PO SCH (08:36)
[2020-03-13] MEDS: MAGNESIUM OXIDE 400 MG TAB PO SCH ×2 (08:36→20:43)
[2020-03-13] MEDS: THIAMINE 100 MG TAB PO SCH ×2 (08:36→16:44)
[2020-03-13] MEDS: NICOTINE 14MG/24HR PATCH TRANSDERM SCH (08:37)
[2020-03-13] MEDS: levETIRAcetam 500 MG TAB PO SCH ×2 (08:37→20:43)
[2020-03-13 08:58] LABS: ALT 25 U/L (4-34); AST 91 U/L (14-36); African American GFR (CKD) >90 (>60 ml/min/1.73 sqM); Albumin 2.1 g/dL (3.5-5.0); Alkaline Phosphatase 268 U/L (38-126); Anion Gap 6 mmol/L; Blood Urea Nitrogen <2 mg/dL (7-17); Calcium 7.9 mg/dL (8.4-10.2); Carbon Dioxide 21 mmol/L (22-30); Chloride 110 mmol/L (98-107); Glucose 91 mg/dL (74-99); Magnesium 1.8 mg/dL (1.6-2.3); Non-African American GFR(CKD) >90 (>60 ml/min/1.73 sqM); Potassium 3.4 mmol/L (3.5-5.1); Sodium 137 mmol/L (137-145); Total Bilirubin 8.4 mg/dL (0.2-1.3); Total Protein 6.1 g/dL (6.3-8.2)
--- NOTE | 2020-03-13 11:03 | P.PN ---
Subjective Progress Note Date: 03/12/20 Principal diagnosis: Alcoholic hepatitis, pancytopenia, ascites, hepatic encephalopathy Patient was seen lying in bed today. Patient's awake alert and oriented to her symptom place. Extensive discussion with the patient regarding her poor prognosis and patient was encouraged to stop drinking. She denies any signs or symptoms of GI bleeding at this time. Objective - Vital Signs Vital signs: Vital Signs Temp 98.5 F 03/12/20 14:17 Pulse 124 H 03/12/20 16:00 Resp 18 03/12/20 14:17 BP 113/56 03/12/20 14:17 Pulse Ox 95 03/12/20 14:17 Intake & Output 03/12/20 03/12/20 03/13/20 06:59 18:59 06:59 Intake Total 300 240 Output Total 2 Balance 298 240 Intake: Oral 300 240 Output: Stool 0 Urine/Stool Mix 2 Other: Voiding Method Bedside Commode Bedside Commode # Voids 1 3 # Bowel Movements 1 3 - Exam On physical examination, patient appears comfortable in no apparent distress. HEAD: Normocephalic, atraumatic. EYES: Scleral icterus. No conjunctival injection. MOUTH: No lesions, tongue midline. NECK: Trachea midline, no gross abnormalities. ABDOMEN: Soft, obese and mildly tender and distended. Bowel sounds are positive. No organomegaly. No guarding or rigidity. EXTREMITIES: No pedal edema. SKIN: No rashes, jaundice. NEUROLOGIC: Alert and oriented 2 with no asterixis noted. - Labs CBC & Chem 7: 03/13/20 07:48 03/13/20 07:48 Labs: Abnormal Lab Results - Last 24 Hours (Table) 03/12/20 03/12/20 03/12/20 Range/Units 06:50 06:50 06:50 RBC 2.58 L (3.80-5.40) m/uL Hgb 8.4 L D (11.4-16.0) gm/dL Hct 25.9 L (34.0-46.0) % MCV 100.1 H (80.0-100.0) fL RDW 17.6 H (11.5-15.5) % Plt Count 55 L (150-450) k/uL Lymphocytes # 0.4 L (1.0-4.8) k/uL PT (9.0-12.0) sec INR (<1.2) Sodium (137-145) mmol/L Carbon Dioxide (22-30) mmol/L BUN (7-17) mg/dL Glucose (74-99) mg/dL Magnesium 1.3 L (1.6-2.3) mg/dL Total Bilirubin (0.2-1.3) mg/dL AST (14-36) U/L Alkaline Phosphatase (38-126) U/L Ammonia 55 H (<30) umol/L Albumin (3.5-5.0) g/dL 03/12/20 03/12/20 Range/Units 06:50 06:50 RBC (3.80-5.40) m/uL Hgb (11.4-16.0) gm/dL Hct (34.0-46.0) % MCV (80.0-100.0) fL RDW (11.5-15.5) % Plt Count (150-450) k/uL Lymphocytes # (1.0-4.8) k/uL PT 20.3 H (9.0-12.0) sec INR 2.1 H (<1.2) Sodium 134 L (137-145) mmol/L Carbon Dioxide 20 L (22-30) mmol/L BUN 2 L (7-17) mg/dL Glucose 101 H (74-99) mg/dL Magnesium (1.6-2.3) mg/dL Total Bilirubin 11.1 H (0.2-1.3) mg/dL AST 154 H (14-36) U/L Alkaline Phosphatase 345 H (38-126) U/L Ammonia (<30) umol/L Albumin 2.5 L (3.5-5.0) g/dL Microbiology - Last 24 Hours (Table) 03/10/20 14:30 Gram Stain - Preliminary Ascites Fluid Body Fluid Culture - Preliminary 03/10/20 01:48 Blood Culture - Preliminary Blood No Growth after 48 hours Assessment and Plan (1) Alcoholic hepatitis Narrative/Plan: 29-year-old female with medical history significant for alcohol abuse with multiple hospitalizations for alcoholic hepatitis with encephalopathy and ascites previously transferred to [facility], who presented as a transfer from outside facility for encephalopathy and alcohol withdrawal. The patient had previously reported 2 months of abstinence from alcohol but resumed drinking prior to coming back to the hospital. The patient had been prescribed medicines including diuretics and lactulose for encephalopathy as an outpatient but is unclear if she was compliant with these medications. The patient is a poor historian. She has not followed up with gastroenterology in the office after discharge and has continued to drink as stated. On current admission she has been reinitiated on diuretic therapy with Aldactone and Lasix has been held due to persistent hypotension and also initiated on lactulose and rifaximin therapy. Current Visit: No Status: Acute Code(s): K70.10 - ALCOHOLIC HEPATITIS WITHOUT ASCITES SNOMED Code(s): 823701368 (2) Hepatic encephalopathy Narrative/Plan: Patient with known hepatic encephalopathy on rifaximin and lactulose therapy, mentation likely worsened by treatment of withdrawal and benzodiazepine therapy. Current Visit: Yes Status: Acute Code(s): K72.90 - HEPATIC FAILURE, UNSPECIFIED WITHOUT COMA SNOMED Code(s): 72856257 (3) Acalculous cholecystitis Current Visit: No Status: Acute Code(s): K81.9 - CHOLECYSTITIS, UNSPECIFIED SNOMED Code(s): 87232095 (4) Ascites Current Visit: No Status: Acute Code(s): R18.8 - OTHER ASCITES SNOMED Code(s): 686938961 (5) Chronic anemia Narrative/Plan: Patient with known history of pancytopenia and normocytic normochromic anemia. She is denying any signs or symptoms of GI bleeding, however suspicion is for possible GI blood loss from portal hypertensive gastropathy, gastric antral vascular ectasia, possible peptic ulcer disease, all exacerbated by thrombocytopenia and coagulopathy in the setting of liver disease. Variceal bleed unlikely sedation is denying hematemesis or melena. Current Visit: No Status: Acute Code(s): D64.9 - ANEMIA, UNSPECIFIED SNOMED Code(s): 578432577 (6) ETOH abuse Current Visit: No Status: Acute Code(s): F10.10 - ALCOHOL ABUSE, UNCOMPLICATED SNOMED Code(s): 98359792 (7) Elevated liver enzymes Current Visit: No Status: Acute Code(s): R74.8 - ABNORMAL LEVELS OF OTHER SERUM ENZYMES SNOMED Code(s): 837473567 Plan: Supportive care Okay for sodium restricted diet Continue to monitor CBC, BMP, LFTs and INR Alcohol abstinence Continue to monitor and treated for alcohol withdrawal Low-dose midrodrine therapy initiated in the setting of persistent hypotension Continue Aldactone therapy, consideration for titration of medication as well as addition of Lasix dependent on electrolytes, kidney function and blood pressures Packed red blood cells were given to the patient Plan is for endoscopy prior to discharge, when blood pressures and mentation has improved, as patient remains high risk given alcohol withdrawal and hypotension (midrodrine therapy initiated as described) Overall poor prognosis in the setting of continued alcohol use, which has been discussed with the patient at length Narcotic and anxiolytic therapy should be minimized in the setting of known liver disease as well confused picture regarding encephalopathy Thank you for allowing us to participate in the care of the patient we will continue to follow
--- NOTE | 2020-03-13 13:10 | P.PN ---
Subjective Patient is awake and alert today. Her mentation is improving compared to yesterday. Heart rate better controlled. No acute events overnight reported by nursing staff. Objective - Vital Signs Vital signs: Vital Signs Temp 98.4 F 03/13/20 07:00 Pulse 117 H 03/13/20 07:00 Resp 17 03/13/20 07:00 BP 96/56 03/13/20 07:00 Pulse Ox 100 03/13/20 07:00 Intake & Output 03/12/20 03/13/20 03/13/20 18:59 06:59 18:59 Intake Total 240 200 304 Output Total 3 Balance 240 197 304 Intake: Oral 240 200 304 Output: Urine/Stool Mix 3 Other: Voiding Method Bedside Commode Bedside Commode Bedside Commode # Voids 3 3 1 # Bowel Movements 3 2 1 - Exam General: The patient is awake and alert, she appeared confused Eye: Ictirec conjunctiva bilaterally Neck: The neck is supple, there is no JVD. Cardiovascular: Normal S1-S2, no S3-S4, no murmurs. Respiratory: Lungs clear to auscultation bilaterally Gastrointestinal: Abdomen is soft, nontender Musculoskeletal: There is no pedal edema. Skin: Skin is warm and dry - Labs CBC & Chem 7: 03/13/20 07:48 03/13/20 07:48 Labs: Abnormal Lab Results - Last 24 Hours (Table) 03/13/20 03/13/20 03/13/20 Range/Units 07:48 07:48 07:48 RBC 2.19 L (3.80-5.40) m/uL Hgb 7.1 L (11.4-16.0) gm/dL Hct 22.0 L (34.0-46.0) % MCV 100.5 H (80.0-100.0) fL RDW 18.5 H (11.5-15.5) % Plt Count 59 L (150-450) k/uL Lymphocytes # 0.7 L (1.0-4.8) k/uL PT 20.3 H (9.0-12.0) sec INR 2.1 H (<1.2) Potassium 3.4 L (3.5-5.1) mmol/L Chloride 110 H (98-107) mmol/L Carbon Dioxide 21 L (22-30) mmol/L BUN <2 L (7-17) mg/dL Creatinine 0.46 L (0.52-1.04) mg/dL Calcium 7.9 L (8.4-10.2) mg/dL Total Bilirubin 8.4 H (0.2-1.3) mg/dL AST 91 H (14-36) U/L Alkaline Phosphatase 268 H (38-126) U/L Ammonia (<30) umol/L Total Protein 6.1 L (6.3-8.2) g/dL Albumin 2.1 L (3.5-5.0) g/dL 03/13/20 Range/Units 07:48 RBC (3.80-5.40) m/uL Hgb (11.4-16.0) gm/dL Hct (34.0-46.0) % MCV (80.0-100.0) fL RDW (11.5-15.5) % Plt Count (150-450) k/uL Lymphocytes # (1.0-4.8) k/uL PT (9.0-12.0) sec INR (<1.2) Potassium (3.5-5.1) mmol/L Chloride (98-107) mmol/L Carbon Dioxide (22-30) mmol/L BUN (7-17) mg/dL Creatinine (0.52-1.04) mg/dL Calcium (8.4-10.2) mg/dL Total Bilirubin (0.2-1.3) mg/dL AST (14-36) U/L Alkaline Phosphatase (38-126) U/L Ammonia 38 H (<30) umol/L Total Protein (6.3-8.2) g/dL Albumin (3.5-5.0) g/dL Microbiology - Last 24 Hours (Table) 03/10/20 01:48 Blood Culture - Preliminary Blood No Growth after 72 hours 03/10/20 14:40 Anaerobic Culture - Preliminary Paracentesis Fluid 03/10/20 14:30 Gram Stain - Preliminary Ascites Fluid Body Fluid Culture - Preliminary Assessment and Plan Assessment: 1. Alcohol abuse with acute alcohol withdrawal syndrome: Counseled extensively to quit. [facility] protocol as needed. 2. Acute hepatic encephalopathy: Continue lactulose and rifaximin. ammonia level within acceptable range 3. 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 Bilirubin improving compared to last week but remain high. 4. Ascites, status post paracentesis with 0.9 L removal. Lasix on hold secondary to hypotension. We will restart when blood pressure allow 5. Hypomagnesemia, replaced. Repeat lab work in the morning 6. Seizure disorder: Maintained on Keppra. Seizure disorder in place. 7. Acute anemia, with possible acute blood loss anemia awaiting GI evaluation. 1 units of blood transfused for hemoglobin of 6.3. We'll monitor CBC daily. Continue IV Protonix. Seen and evaluated by GI. Plan for EGD prior to discharge when overall condition improved. 8. Sinus tachycardia: Probably secondary to dehydration. Improved with IV fluid bolus. Thyroid function test within normal range. 9. Coagulopathy: Vitamin K ordered today per GI. We will continue to monitor INR. 10. Thrombocytopenia, secondary to underlying liver disease. We will continue to monitor 11. Hypotension problem in setting of underlying liver disease. Started on midodrine by GI. Patient's overall condition is guarded. No family members around to be updated about her current condition. Patient is not a candidate for liver transplant at this time giving ongoing alcohol abuse. She was counseled extensively to quit.
[2020-03-13] MEDS: ONDANSETRON 4 MG/2 ML VIAL IVP PRN (20:43)
--- NOTE | 2020-03-13 20:59 | PN ---
PROGRESS NOTE DATE OF DICTATION: 03/13/2020 This patient is a 29-year-old white female with a history of heavy alcohol abuse. She was recently discharged from the hospital because of acute alcoholic hepatitis and altered mental status. She is back with the same symptoms. She is doing much better today. She is more awake and alert. She denies any abdominal pain. She reports no nausea, vomiting. Slightly confused but answering questions appropriately. PHYSICAL EXAMINATION: Her blood pressure is 96/56, pulse rate 117, temperature 98.4. HEENT examination unremarkable. Conjunctivae pale. Sclerae are deeply icteric. Oral cavity no lesions. NECK: No JVD or lymph node enlargement. CHEST: Clear to auscultation. HEART: Regular rate and rhythm. ABDOMEN: Soft. It was non-tender, non-distended. EXTREMITIES: Trace pedal edema. NEUROLOGIC: Alert and oriented to name and place; not to time. LABS: Labs done from today show WBC 4.3, hemoglobin 7.1, platelets 59,000. INR 2.1. AST and ALT are 91 and 25, respectively. T-bilirubin 8.4. Alkaline phosphatase is 268, albumin 2.1. IMPRESSION: 1. Severe acute alcoholic hepatitis with elevated T-bilirubin and serum transaminases. T-bilirubin has slightly improved to 8.4 g/dL today. 2. Macrocytic anemia secondary to underlying chronic liver disease with portal hypertension and hypersplenism. Clinically no evidence of active GI bleed. 3. Thrombocytopenia secondary to severe portal hypertension from chronic liver disease. 4. Coagulopathy secondary to advanced liver disease. 5. Hepatic encephalopathy, improving. Remains on Xifaxan as well as lactulose. 6. Persistent hyp tension from underlying liver disease started yesterday. RECOMMENDATIONS: 1. Continue with symptomatic and supportive care. 2. Monitor LFTs closely. 3. Continue with lactulose and titrate so that she has 3-4 bowel movements daily. 4. Continue with oral Xifaxan. 5. If her blood pressure continues to improve, will consider starting her on diuretics at a low dose. 6. Low-salt diet. 7. I had a lengthy discussion with the patient regarding the importance of abstinence from alcohol. 8. No plans for any endoscopic intervention at the present time, as clinically she does not have any evidence of active bleeding. 9. Will follow with you closely. Thank you for this consultation. MMODL / IJN: [id number] /
[2020-03-14] MEDS: HEPARIN SODIUM,PORCINE 5,000 UNIT/ML 1 ML VIAL SQ SCH ×4 (00:33→21:19)
[2020-03-14 07:29] LABS: Prothrombin Time 19.5 sec (9.0-12.0)
[2020-03-14] MEDS: LACTULOSE 20 GM/30 ML CUP PO SCH ×4 (07:40→21:15)
[2020-03-14] MEDS: PANTOPRAZOLE 40 MG/10 ML VIAL IVP SCH (07:40)
[2020-03-14] MEDS: THIAMINE 100 MG TAB PO SCH ×2 (07:41→17:28)
[2020-03-14] MEDS: FOLIC ACID 1 MG TAB PO SCH (07:41)
[2020-03-14] MEDS: SPIRONOLACTONE 25 MG TAB PO SCH (07:41)
[2020-03-14] MEDS: MAGNESIUM OXIDE 400 MG TAB PO SCH ×2 (07:41→21:16)
[2020-03-14] MEDS: MIDODRINE 5 MG TAB PO SCH ×3 (07:41→17:28)
[2020-03-14] MEDS: levETIRAcetam 500 MG TAB PO SCH ×2 (07:41→21:16)
[2020-03-14] MEDS: NICOTINE 14MG/24HR PATCH TRANSDERM SCH (07:42)
[2020-03-14] MEDS: RIFAXIMIN 550 MG TABLET PO SCH ×2 (07:42→21:16)
[2020-03-14 07:47] LABS: Anisocytosis Slight; HCT 22.8 % (34.0-46.0); HGB 7.4 gm/dL (11.4-16.0); Hypochromasia Slight; MCH 33.4 pg (25.0-35.0); MCHC 32.6 g/dL (31.0-37.0); MCV 102.7 fL (80.0-100.0); Macrocytosis Moderate; Mean Platelet Volume 8.4; RBC 2.22 m/uL (3.80-5.40); RDW 19.1 % (11.5-15.5); WBC 3.6 k/uL (3.8-10.6)
[2020-03-14 07:51] LABS: Platelet Count 64 k/uL (150-450)
[2020-03-14 08:02] LABS: ALT 23 U/L (4-34); AST 65 U/L (14-36); African American GFR (CKD) >90 (>60 ml/min/1.73 sqM); Albumin 2.1 g/dL (3.5-5.0); Alkaline Phosphatase 267 U/L (38-126); Anion Gap 5 mmol/L; Blood Urea Nitrogen <2 mg/dL (7-17); Calcium 8.1 mg/dL (8.4-10.2); Carbon Dioxide 22 mmol/L (22-30); Chloride 111 mmol/L (98-107); Glucose 85 mg/dL (74-99); Non-African American GFR(CKD) >90 (>60 ml/min/1.73 sqM); Potassium 3.8 mmol/L (3.5-5.1); Sodium 138 mmol/L (137-145); Total Bilirubin 8.1 mg/dL (0.2-1.3); Total Protein 6.1 g/dL (6.3-8.2)
[2020-03-14 08:32] LABS: Eosinophils # (M) 0.11 k/uL (0-0.7); Lymphocytes # (M) 0.65 k/uL (1.0-4.8); Monocytes # (M) 0.11 k/uL (0-1.0); Neutrophils # (M) 2.74 k/uL (1.3-7.7); Neutrophils % (M) 76 %; Nucleated Red Blood Cells 0 /100 WBC (0-0); Total Cells Counted 100
[2020-03-14] MEDS: ONDANSETRON 4 MG/2 ML VIAL IVP PRN ×2 (11:49→21:35)
--- NOTE | 2020-03-14 14:36 | P.PN ---
Subjective Patient is lethargic but easily arousable. No acute events overnight. Lab work stable compared to yesterday. Objective - Vital Signs Vital signs: Vital Signs Temp 98.2 F 03/14/20 07:00 Pulse 110 H 03/14/20 07:00 Resp 18 03/14/20 07:00 BP 90/62 03/14/20 07:00 Pulse Ox 100 03/14/20 07:00 Intake & Output 03/13/20 03/14/20 03/14/20 18:59 06:59 18:59 Intake Total 304 100 Output Total 0 Balance 304 100 Intake: Oral 304 100 Output: Stool 0 Other: Voiding Method Bedside Commode Bedside Commode # Voids 1 1 # Bowel Movements 1 2 - Exam General: The patient is awake and alert, she appeared confused Eye: Ictirec conjunctiva bilaterally Neck: The neck is supple, there is no JVD. Cardiovascular: Normal S1-S2, no S3-S4, no murmurs. Respiratory: Lungs clear to auscultation bilaterally Gastrointestinal: Abdomen is soft, nontender Musculoskeletal: There is no pedal edema. Skin: Skin is warm and dry - Labs CBC & Chem 7: 03/14/20 07:01 03/14/20 07:01 Labs: Abnormal Lab Results - Last 24 Hours (Table) 03/14/20 03/14/20 03/14/20 Range/Units 07:01 07:01 07:01 WBC 3.6 L (3.8-10.6) k/uL RBC 2.22 L (3.80-5.40) m/uL Hgb 7.4 L (11.4-16.0) gm/dL Hct 22.8 L (34.0-46.0) % MCV 102.7 H (80.0-100.0) fL RDW 19.1 H (11.5-15.5) % Plt Count 64 L (150-450) k/uL Lymphocytes # (Manual) 0.65 L (1.0-4.8) k/uL PT 19.5 H (9.0-12.0) sec INR 2.0 H (<1.2) Chloride 111 H (98-107) mmol/L BUN <2 L (7-17) mg/dL Creatinine 0.47 L (0.52-1.04) mg/dL Calcium 8.1 L (8.4-10.2) mg/dL Total Bilirubin 8.1 H (0.2-1.3) mg/dL AST 65 H (14-36) U/L Alkaline Phosphatase 267 H (38-126) U/L Total Protein 6.1 L (6.3-8.2) g/dL Albumin 2.1 L (3.5-5.0) g/dL Microbiology - Last 24 Hours (Table) 03/10/20 01:48 Blood Culture - Preliminary Blood No Growth after 96 hours Assessment and Plan Assessment: 1. Alcohol abuse with acute alcohol withdrawal syndrome: Counseled extensively to quit. 2. Acute hepatic encephalopathy: Continue lactulose and rifaximin. ammonia le andrade within acceptable range 3. 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 Bilirubin improving compared to last week but remain high. 4. Ascites, status post paracentesis with 0.9 L removal. Lasix on hold secondary to hypotension. We will restart when blood pressure allow 5. Hypomagnesemia, replaced. 6. Seizure disorder: Maintained on Keppra. Seizure disorder in place. 7. Acute anemia, with possible acute on chronic blood loss anemia. 1 units of blood transfused for hemoglobin of 6.3. We'll monitor CBC daily. Continue IV Protonix. Seen and evaluated by GI. no plan for EGD during this admission 8. Sinus tachycardia: Probably secondary to dehydration. Improved with IV fluid bolus. Thyroid function test within normal range. 9. Coagulopathy: Vitamin K ordered today per GI. We will continue to monitor INR. 10. Thrombocytopenia, secondary to underlying liver disease. We will continue to monitor 11. Hypotension in setting of underlying liver disease. Started on midodrine by GI. Patient's overall condition is guarded. No family members around to be updated about her current condition. Patient is not a candidate for liver transplant at this time giving ongoing alcohol abuse. She was counseled extensively to quit. PT/OT evaluation. Anticipate discharge within the next day or 2.
--- NOTE | 2020-03-14 21:14 | PN ---
PROGRESS NOTE DATE OF SERVICE: March 14, 2020 Patient is a 29-year-old white female with history of acute alcoholic hepatitis admitted to the hospital with altered mental status/hepatic encephalopathy. She was doing much better yesterday. Today she is very sleepy. However, arousable and answers to questions appropriately. She denies any symptoms. PHYSICAL EXAMINATION: Appears comfortable. Vital signs stable. Blood pressure 90/62, pulse rate 100, temperature 98.2. HEENT examination unremarkable. Conjunctivae pink. Sclerae anicteric. Oral cavity no lesions. NECK: No JVD or lymph node enlargement. Sclerae deeply icteric. ABDOMEN: Soft, slightly distended. Bowel sounds are positive. No organomegaly. EXTREMITIES: No pedal edema. NEURO: She is awake, oriented to name but she is very sleepy. LABS: From today WBC is 3.6, hemoglobin 7.4, platelets 64,000. MCV 102, T-bilirubin 0.1, AST 65, ALT 23, alkaline phosphatase 261. INR 2. IMPRESSION: 1. Acute alcoholic hepatitis with elevated bilirubin and minimal elevation of serum transaminases, parameters remains stable. 2. Portal hypertension with ascites, status post large-volume paracentesis 4 days ago. Clinically has mild ascites. 3. Hepatic encephalopathy, improving. 4. Coagulopathy secondary to advanced liver disease. 5. Pancytopenia secondary to underlying portal hypertension and hypersplenism. 6. Severe anemia. Clinically no evidence of active bleeding. RECOMMENDATIONS: 1. Continue with Xifaxan and lactulose. 2. Monitor ammonia level. 3. The patient was started on Aldactone 25 mg daily and tolerating well. 4. Continue midodrine. 5. Follow labs closely. 6. We will follow with you. Thank you for this consultation. MMODL / IJN: [id number] /
[2020-03-14] MEDS ORDERED: ACETAMINOPHEN TAB 325 MG TAB PO STA (21:32)
[2020-03-15 04:00] VITALS: RESP 16
[2020-03-15 06:43] LABS: ALT 21 U/L (4-34); AST 53 U/L (14-36); African American GFR (CKD) >90 (>60 ml/min/1.73 sqM); Albumin 2.1 g/dL (3.5-5.0); Alkaline Phosphatase 249 U/L (38-126); Anion Gap 4 mmol/L; Blood Urea Nitrogen <2 mg/dL (7-17); Calcium 8.2 mg/dL (8.4-10.2); Carbon Dioxide 23 mmol/L (22-30); Chloride 110 mmol/L (98-107); Glucose 85 mg/dL (74-99); Non-African American GFR(CKD) >90 (>60 ml/min/1.73 sqM); Potassium 4.4 mmol/L (3.5-5.1); Sodium 137 mmol/L (137-145); Total Protein 6.2 g/dL (6.3-8.2)
[2020-03-15 07:01] LABS: Anisocytosis Slight; Basophils % (A) 0 %; Eosinophils # (A) 0.1 k/uL (0-0.7); Eosinophils % (A) 3 %; HCT 23.1 % (34.0-46.0); HGB 7.5 gm/dL (11.4-16.0); Hypochromasia Slight; Lymphocytes # (A) 0.8 k/uL (1.0-4.8); Lymphocytes % (A) 24 %; MCH 33.2 pg (25.0-35.0); MCHC 32.4 g/dL (31.0-37.0); MCV 102.6 fL (80.0-100.0); Macrocytosis Moderate; Mean Platelet Volume 8.3; Monocytes # (A) 0.3 k/uL (0-1.0); Monocytes % (A) 8 %; Neutrophils % (A) 63 %; Platelet Count 64 k/uL (150-450); RBC 2.26 m/uL (3.80-5.40); WBC 3.2 k/uL (3.8-10.6)
[2020-03-15 07:11] LABS: Poikilocytosis (M) Present
[2020-03-15 08:21] VITALS: BP 96/61; PULSE 110; TEMP 97.9
[2020-03-15] MEDS: MIDODRINE 5 MG TAB PO SCH ×2 (08:36→11:45)
[2020-03-15] MEDS: FOLIC ACID 1 MG TAB PO SCH (08:36)
[2020-03-15] MEDS: MAGNESIUM OXIDE 400 MG TAB PO SCH (08:36)
[2020-03-15] MEDS: THIAMINE 100 MG TAB PO SCH (08:36)
[2020-03-15] MEDS: HEPARIN SODIUM,PORCINE 5,000 UNIT/ML 1 ML VIAL SQ SCH (08:36)
[2020-03-15] MEDS: SPIRONOLACTONE 25 MG TAB PO SCH (08:36)
[2020-03-15] MEDS: RIFAXIMIN 550 MG TABLET PO SCH (08:37)
[2020-03-15] MEDS: NICOTINE 14MG/24HR PATCH TRANSDERM SCH (08:37)
[2020-03-15] MEDS: levETIRAcetam 500 MG TAB PO SCH (08:37)
[2020-03-15] MEDS: LACTULOSE 20 GM/30 ML CUP PO SCH (08:38)
[2020-03-15] MEDS: ONDANSETRON 4 MG/2 ML VIAL IVP PRN (08:53)
[2020-03-15] MEDS ORDERED: PANTOPRAZOLE 40 MG TABLET PO SCH (09:00)
--- NOTE | 2020-03-15 09:40 | P.DS ---
Providers Date of admission: 03/09/20 23:58 Expected date of discharge: 03/15/20 Attending physician: Alannah Jacob MD Consults: 03/10/20 01:05 Consult Physician Routine Consulting Provider: Jefry Hartley Consult Reason/Comments: hepatic encephalopathy Grade I Do you want consulting provider notified?: Yes, Notify in am Primary care physician: Dede Del Rosario [facility] Hospital Course: This is a 29-year-old female with complex past medical history noted below who presented to the hospital with worsening confusion and fatigue. Patient was evaluated in the ER and admitted to the hospital for further management of her medical problems noted below. 1. Alcohol abuse with acute alcohol withdrawal syndrome: Counseled extensively to quit. No more withdrawal symptoms prior to discharge 2. Acute hepatic encephalopathy: Improved significantly. Continue lactulose and rifaximin. ammonia level within acceptable range 3. 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 Bilirubin improving compared to last week but remain high. 4. Ascites, status post paracentesis with 0.9 L removal. Continue Lasix and spironolactone 5. Hypomagnesemia, replaced. 6. Seizure disorder: Maintained on Keppra. Discontinue tramadol 7. Acute anemia, with possible acute on chronic blood loss anemia. Requiring 1 unit of blood transfused for hemoglobin of 6.3. Seen and evaluated by GI. no plan for EGD during this admission as there is no evidence of ongoing bleed. 8. Sinus tachycardia: Probably secondary to dehydration. Improved with IV fluid bolus. Thyroid function test within normal range. 9. Coagulopathy: given vitamin K during this admission 10. Thrombocytopenia, secondary to underlying liver disease. 11. Hypotension in setting of underlying liver disease. Continue home dose of midodrine Patient will be discharged home in a stable condition. She will follow-up with GI in the office as directed. Repeat lab work on next follow-up. Consider EGD the outpatient setting. Patient counseled extensively regarding compliance with her medication including lactulose and rifaximin. She was counseled extensively to avoid drinking alcohol at all Patient Condition at Discharge: Poor Plan - Discharge Summary Discharge Rx Participant: Yes New Discharge Prescriptions: New Magnesium Oxide [Mag-Ox] 400 mg PO BID #30 tab Rifaximin [Xifaxan] 550 mg PO BID #60 tablet Continue Pantoprazole [Protonix] 40 mg PO DAILY PRN PRN Reason: GERD Ondansetron HCl [Zofran] 4 mg PO Q12H PRN PRN Reason: Nausea And Vomiting levETIRAcetam [Keppra] 750 mg PO BID Midodrine [ProAmatine] 5 mg PO AC-TID Thiamine [Vitamin B-1] 100 mg PO DAILY Spironolactone [Aldactone] 25 mg PO DAILY Folic Acid 1 mg PO DAILY Lactulose 30 gm PO QID Potassium Chloride ER [K-Dur 20] 20 meq PO DAILY 30 Days #30 tab Furosemide [Lasix] 40 mg PO DAILY 30 Days #30 tab Multivitamins, Thera [Multivitamin (formulary)] 1 tab PO DAILY Trimethobenzamide HCl [Tigan] 300 mg PO BID PRN PRN Reason: Nausea Discontinued traMADol HCL 50 mg PO BID PRN PRN Reason: Pain Discharge Medication List Folic Acid 1 mg PO DAILY 02/10/20 [History] Lactulose 30 gm PO QID 02/10/20 [History] Midodrine [ProAmatine] 5 mg PO AC-TID 02/10/20 [History] Ondansetron HCl [Zofran] 4 mg PO Q12H PRN 02/10/20 [History] Pantoprazole [Protonix] 40 mg PO DAILY PRN 02/10/20 [History] Spironolactone [Aldactone] 25 mg PO DAILY 02/10/20 [History] Thiamine [Vitamin B-1] 100 mg PO DAILY 02/10/20 [History] levETIRAcetam [Keppra] 750 mg PO BID 02/10/20 [History] Furosemide [Lasix] 40 mg PO DAILY 30 Days #30 tab 02/11/20 [Rx] Potassium Chloride ER [K-Dur 20] 20 meq PO DAILY 30 Days #30 tab 02/11/20 [Rx] Multivitamins, Thera [Multivitamin (formulary)] 1 tab PO DAILY 03/10/20 [History] Trimethobenzamide HCl [Tigan] 300 mg PO BID PRN 03/10/20 [History] Magnesium Oxide [Mag-Ox] 400 mg PO BID #30 tab 03/15/20 [Rx] Rifaximin [Xifaxan] 550 mg PO BID #60 tablet 03/15/20 [Rx] Follow up Appointment(s)/Referral(s): [facility], [NON-STAFF] - As Needed Jefry Hartley MD [STAFF PHYSICIAN] - 1 Week Discharge Disposition: HOME WITH HOME HEALTH SERVICES
--- NOTE | 2020-03-15 16:45 | PN ---
PROGRESS NOTE DATE OF SERVICE: 03/15/2020 Patient is a 29-year-old white female admitted to the hospital with severe acute alcoholic hepatitis and altered mental status. She is feeling much better today. She is more awake. She is sitting up in bed, eating her breakfast, doing well. She is not complaining of any symptoms. Has some abdominal discomfort. PHYSICAL EXAMINATION: Appears comfortable. Vital signs are stable. Blood pressure 96/61, pulse rate 110, temperature 97.9. HEENT examination unremarkable. Conjunctivae pink. Sclerae icteric. Oral cavity no lesions. NECK: No JVD or lymph node enlargement. CHEST: Clear to auscultation. HEART: Regular rate and rhythm. ABDOMEN: Soft. Bowel sounds are positive. No organomegaly. EXTREMITIES: No pedal edema. NEURO: She is alert and oriented x3. No focal deficits. LABS: Labs done today, T bilirubin is 8.1. ALT and AST are minimally elevated. INR is 1.1. IMPRESSION: 1. Acute alcoholic hepatitis with elevated bilirubin, gradually improving. 2. Altered mental status secondary to hepatic encephalopathy. Remains on lactulose and Xifaxan and she is more awake today. 3. Macrocytic anemia secondary to severe alcohol abuse and portal hypertension. 4. Ascites status post large-volume paracentesis four days ago. Remains on Lasix and Aldactone currently. 5. Coagulopathy secondary to advanced liver disease. RECOMMENDATION: 1. Continue to monitor her closely. 2. Continue with symptomatic and supportive care. 3. I consulted the patient regarding importance of abstinence from alcohol. 4. Monitor her labs closely. 5. Continue Xifaxan and lactulose. 6. Will follow with you. Thank you for this consultation. MMODL / IJN: [id number] /
== END 2020-03-15 12:55 | disposition home health service (06) | DRG 896 ==
LOC: 4SSUR 23:58
PROVIDERS: ADMIT Internal Medicine; ATTEND Internal Medicine
PROC: 0W9G3ZX Drainage of Peritoneal Cavity, Percutaneous Approach, Diagnostic (ICD-10-PCS; 2020-03-10)
PROC: 30233N1 Transfusion of Nonautologous Red Blood Cells into Peripheral Vein, Percutaneous Approach (ICD-10-PCS; principal; 2020-03-11 12:50)
DX: F10.239 Alcohol dependence with withdrawal, unspecified (principal); K72.00 Acute and subacute hepatic failure without coma; D61.818 Other pancytopenia; D68.9 Coagulation defect, unspecified; K76.6 Portal hypertension; D73.1 Hypersplenism; D75.89 Other specified diseases of blood and blood-forming organs; E83.42 Hypomagnesemia; E86.0 Dehydration; F41.9 Anxiety disorder, unspecified; F90.9 Attention-deficit hyperactivity disorder, unspecified type; G40.909 Epilepsy, unspecified, not intractable, without status epilepticus; G89.29 Other chronic pain; K70.11 Alcoholic hepatitis with ascites; K81.9 Cholecystitis, unspecified; Z79.899 Other long term (current) drug therapy; Z91.19 Patient's noncompliance with other medical treatment and regimen; Z11.59 Encounter for screening for other viral diseases; R00.0 Tachycardia, unspecified; Z88.1 Allergy status to other antibiotic agents; Z88.0 Allergy status to penicillin; Z71.41 Alcohol abuse counseling and surveillance of alcoholic
CPT/HCPCS: 36410; 49083; 76705; 76937; 80053; 81001; 82140; 82945; 83615; 83690; 83735; 84100; 84157; 84443; 85025; 85027; 85610; 86850; 86900; 86901; 86920; 87040; 87070; 87075; 87205; 89050; 93005

== ENCOUNTER 2020-03-23 18:36 | Inpatient (IN) | payer OTHER ==
[2020-03-23] MEDS ORDERED: NALOXONE 0.4 MG/ML 1 ML VIAL IV PRN (19:11)
--- NOTE | 2020-03-23 19:16 | ED ---
General Adult HPI - General Stated complaint: ABD pain Time Seen by Provider: 03/23/20 18:54 Source: patient, EMS, RN notes reviewed, old records reviewed - History of Present Illness Initial comments: 29-year-old female transferred from outside facility for evaluation of seizure, abdominal pain and distention, alcohol intoxication. Patient was noted to have a alcohol level of 380, mild lactic acid, anemia, hyperbilirubinemia. She is well-known to this Hospital and gastroenterology. She had previously followed with [facility] but is no longer being seen at [facility]. She has advanced liver disease and recurrent abdominal ascites. - Related Data Home Medications Medication Instructions Recorded Confirmed Folic Acid 1 mg PO DAILY 02/10/20 03/10/20 Lactulose 30 gm PO QID 02/10/20 03/10/20 Midodrine [ProAmatine] 5 mg PO AC-TID 02/10/20 03/10/20 Ondansetron HCl [Zofran] 4 mg PO Q12H PRN 02/10/20 03/10/20 Pantoprazole [Protonix] 40 mg PO DAILY PRN 02/10/20 03/10/20 Spironolactone [Aldactone] 25 mg PO DAILY 02/10/20 03/10/20 Thiamine [Vitamin B-1] 100 mg PO DAILY 02/10/20 03/10/20 levETIRAcetam [Keppra] 750 mg PO BID 02/10/20 03/10/20 Multivitamins, Thera [Multivitamin 1 tab PO DAILY 03/10/20 03/10/20 (formulary)] Trimethobenzamide HCl [Tigan] 300 mg PO BID PRN 03/10/20 03/10/20 Previous Rx's Medication Instructions Recorded Furosemide [Lasix] 40 mg PO DAILY 30 Days #30 tab 02/11/20 Potassium Chloride ER [K-Dur 20] 20 meq PO DAILY 30 Days #30 tab 02/11/20 Magnesium Oxide [Mag-Ox] 400 mg PO BID #30 tab 03/15/20 Rifaximin [Xifaxan] 550 mg PO BID #60 tablet 03/15/20 Allergies Allergy/AdvReac Type Severity Reaction Status Date / Time ceftriaxone Allergy Anaphylaxis Verified 03/10/20 07:04 Penicillins Allergy Rash/Hives Verified 03/10/20 07:04 Review of Systems ROS Statement: Those systems with pertinent positive or pertinent negative responses have been documented in the HPI. ROS Other: All systems not noted in ROS Statement are negative. Past Medical History Past Medical History: Liver Disease, Pneumonia, Seizure Disorder Additional Past Medical History / Comment(s): Past obstetrical history significant for 1 section for failure to progress. ETOH abuse. Bronchitis, Sepsis (2013) History of Any Multi-Drug Resistant Organisms: None Reported Past Surgical History: Section, Orthopedic Surgery Additional Past Surgical History / Comment(s): 2 rt foot sx in past Past Anesthesia/Blood Transfusion Reactions: Motion Sickness Past Psychological History: ADD/ADHD, Anxiety Past Alcohol Use History: Abuse, Daily Past Drug Use History: None Reported - Past Family History Father Family Medical History: No Reported History Additional Family Medical History / Comment(s): anxiety Mother Family Medical History: No Reported History General Exam General appearance: alert, in no apparent distress, appears intoxicated Head exam: Present: atraumatic, normocephalic Eye exam: Present: scleral icterus ENT exam: Present: normal exam Neck exam: Present: normal inspection. Absent: tenderness, meningismus Respiratory exam: Present: normal lung sounds bilaterally. Absent: respiratory distress, wheezes Cardiovascular Exam: Present: regular rate, normal rhythm GI/Abdominal exam: Present: distended, other (Positive for fluid wave) Extremities exam: Present: normal capillary refill, pedal edema Neurological exam: Present: alert Medical Decision Making - Medical Decision Making Review of laboratory testing from outside facility reveals alcohol intoxication with serum alcohol 380, hemoglobin of 7.4, mild lactic acid 3.1, normal electrolytes, bilirubin is 9.8. Case discussed with Dr. Jacob who will admit, gastroenterology on consult. Disposition Clinical Impression: ETOH abuse, Seizure disorder, Liver cirrhosis, Chronic anemia, Abdominal pain Disposition: ADMITTED IP TO THIS HOSP Condition: Serious Is patient prescribed a controlled substance at d/c from ED?: No Referrals: Adilene Rock [facility] [Primary Care Provider] - 1-2 days Decision to Admit Reason: Admit from EC Decision Date: 03/23/20 Decision Time: 19:16
[2020-03-23] MEDS ORDERED: TRIMETHOBENZAMIDE 300 MG CAP PO PRN (21:26)
[2020-03-23] MEDS ORDERED: PROCHLORPERAZINE 5 MG TAB PO PRN (21:29)
[2020-03-23] MEDS ORDERED: MORPHINE SULFATE 4 MG/ML SYRINGE IV PRN (21:29)
[2020-03-23] MEDS ORDERED: LORazepam 2 MG/ML INJ IV PRN ×3 (21:31)
[2020-03-23] MEDS: PANTOPRAZOLE 40 MG TABLET PO SCH (21:39)
[2020-03-23] MEDS: LACTULOSE 20 GM/30 ML CUP PO SCH (22:10)
[2020-03-23] MEDS: FUROSEMIDE 40 MG TAB PO SCH (22:15)
[2020-03-23] MEDS: LORazepam 2 MG/ML INJ IV PRN (22:16)
[2020-03-23] MEDS: THIAMINE 100 MG TAB PO SCH (22:52)
--- NOTE | 2020-03-23 22:59 | P.HPIM ---
History of Present Illness H&P Date: 03/23/20 Chief Complaint: abd distention and pain 29 year old female with end stage liver disease secondary to alcoholic hepatitis and ongoing alcohol abuse, seizure disorder (most recent breakthrough seizure > 1 month ago per patient ) patient comes in as a transfer from [facility] , due to symptomatic ascitis and end stage liver disease with ongoing alcohol abuse patient was recently discharged 1 week ago , for similar problem. during her most recent hospital course she was treated for acute hepatic encephalopathy, ascitis and alcohol withdrawal syndrome. she was also found to have severe anemia requiring 1 unit blood transfusion , however, GI did not recommend any endoscopy at that time as there was no evidence of bleeding. this time patient comes in intoxicated with alcohol, she is homeless staying with a friend she claims to be complaint with her seizure meds only, otherwise does not take the rest of her meds as ordered including lactulose. she is constipated, and complaining of chronic diffuse abd pain, worsened with significant abd distention this time. her last paracentesis was while admitted about 2 weeks ago. she continues to drink alcohol despite being extensively counseled. she currently denies any fever, or chillls, denies any chest pain , but admits to some difficulty with breathing especially when lying down due to significant ascitis. she also reports constipation but denies any bleeding. she has very poor appetite with severe nausea, but denies any vomiting, or bleeding. she denies any recent travel or sick contact. blood work showed no electrolytes abnormalities, but did show stable severe anemia at 7.4, lactic acidosis, elevated bilirubin , thrombocytopenia, and elevated alcohol level. Review of Systems Pertinent positives as noted in HPI. All other systems were reviewed and are negative Past Medical History Past Medical History: Liver Disease, Pneumonia, Seizure Disorder Additional Past Medical History / Comment(s): Past obstetrical history significant for 1 section for failure to progress. ETOH abuse. Bronchitis, Sepsis (2013) History of Any Multi-Drug Resistant Organisms: None Reported Past Surgical History: Section, Orthopedic Surgery Additional Past Surgical History / Comment(s): 2 rt foot sx in past Past Anesthesia/Blood Transfusion Reactions: Motion Sickness Past Psychological History: ADD/ADHD, Anxiety Past Alcohol Use History: Abuse, Daily Past Drug Use History: None Reported - Past Family History Father Family Medical History: No Reported History Additional Family Medical History / Comment(s): anxiety Mother Family Medical History: No Reported History Medications and Allergies Home Medications Medication Instructions Recorded Confirmed Type Folic Acid 1 mg PO DAILY 02/10/20 03/23/20 History Lactulose 30 gm PO QID 02/10/20 03/23/20 History Pantoprazole [Protonix] 40 mg PO DAILY PRN 02/10/20 03/23/20 History Spironolactone [Aldactone] 25 mg PO DAILY 02/10/20 03/23/20 History Thiamine [Vitamin B-1] 100 mg PO DAILY 02/10/20 03/23/20 History levETIRAcetam [Keppra] 750 mg PO BID 02/10/20 03/23/20 History Furosemide [Lasix] 40 mg PO DAILY 30 Days #30 tab 02/11/20 03/23/20 Rx Potassium Chloride ER [K-Dur 20] 20 meq PO DAILY 30 Days #30 tab 02/11/20 03/23/20 Rx Multivitamins, Thera [Multivitamin 1 tab PO DAILY 03/10/20 03/23/20 History (formulary)] Trimethobenzamide HCl [Tigan] 300 mg PO BID PRN 03/10/20 03/23/20 History Magnesium Oxide [Mag-Ox] 400 mg PO BID #30 tab 03/15/20 03/23/20 Rx Atomoxetine HCl [Strattera] 25 mg PO DAILY 03/23/20 03/23/20 History Metoprolol Tartrate 25 mg PO DAILY 03/23/20 03/23/20 History traMADol HCL 50 mg PO BID 03/23/20 03/23/20 History Allergies Allergy/AdvReac Type Severity Reaction Status Date / Time ceftriaxone Allergy Anaphylaxis Verified 03/23/20 20:18 Penicillins Allergy Rash/Hives Verified 03/23/20 20:18 Physical Exam Vitals: Vital Signs Temp Pulse Resp BP Pulse Ox 03/23/20 18:45 97.8 F 105 H 20 106/65 97 Intake and Output 03/23/20 03/23/20 03/23/20 06:59 14:59 22:59 Other: Weight 81.647 kg Constitutional: No acute distress, conversant, pleasant Eyes: deeply jaundiced sclerae, moist conjunctiva, Pupils equal round reactive to light ENMT: NC/AT, bleeding pimple over left chin Oropharynx clear, no erythema, or exudates Neck: Supple, FROM, no masses, or JVD No carotid bruits No thyromegaly Lungs: Clear to auscultation Clear to percussion Normal respiratory effort, no accessory muscle use Cardiovascular: Heart regular in rate and rhythm, No murmurs, gallops, or rubs No peripheral edema Abdominal: moderate to severe distention, discomfort diffusely to deep palpation no guarding, rebound or rigidity Abdomen moving with respiration Normoactive bowel sounds No hepatomegaly, No splenomegaly No palpable mass No abdominal wall hernia noted positive transmitted thrill Skin: deeply jaundiced, otherwise Normal temperature, tone, texture, turgor Extremities: No digital cyanosis No clubbing Pedal pulses intact and symmetrical Radial pulses intact and symmetrical No calf tenderness Psychiatric: Alert and oriented to person, place only depressed affect poor judgement Neuro Muscles Strength 4/5 in all 4 extremities , mild astrexis in bilateral hands Sensation to light touch grossly present throughout Cranial nerves II-XII grossly intact No focal sensory deficits Lymphatics: no palpable cervical or supraclavicular , or inguinal lymph nodes Assessment and Plan Assessment: symptomatic ascitis minimal acute hepatic encephalopathy, secondary to alcoholic hepatitis and end stage liver disease chronic anemia and thrombocytopenia with no evidence of acute bleeding constipation seizure disorder medical non compliance lactic acidosis acute severe alcohol intoxication , monitor for alcohol withdrawal syndrome plan gentle IV fluid hydration monitor vital signs midodrin for hypotension opioids for pain as needed IR for abd paracentesis again counseled to quit alcohol Benzo per CIWA thiamine folic acid PPI resume lasix and spironolactone lactulose QID target 3-5 BM daily monitor electrolytes seizure precautions continue keppra check ammonia level CODE STATUS:full code DVT prophylaxis: heparin sc tid Discussed with: Patient, ER, RN Anticipated length of stay > than [address]: pending clinical course A total of 75 minutes was spent on the care of this complex patient more than 50% of the time was spent in counseling and care coordination.
[2020-03-24 01:00] LABS: Lactic Acid, Venous 1.6 mmol/L (0.7-2.0)
[2020-03-24] MEDS: HEPARIN SODIUM,PORCINE 5,000 UNIT/ML 1 ML VIAL SQ SCH ×4 (01:34→23:13)
[2020-03-24] MEDS: LORazepam 2 MG/ML INJ IV PRN ×4 (06:45→21:18)
[2020-03-24] MEDS: THIAMINE 100 MG TAB PO SCH ×2 (09:12→17:32)
[2020-03-24] MEDS: FUROSEMIDE 40 MG TAB PO SCH (09:12)
[2020-03-24] MEDS: SPIRONOLACTONE 25 MG TAB PO SCH (09:12)
[2020-03-24] MEDS: FOLIC ACID 1 MG TAB PO SCH (09:12)
[2020-03-24 09:13] LABS: ALT 30 U/L (4-34); AST 175 U/L (14-36); African American GFR (CKD) >90 (>60 ml/min/1.73 sqM); Albumin 3.2 g/dL (3.5-5.0); Alkaline Phosphatase 276 U/L (38-126); Anion Gap 15 mmol/L; Blood Urea Nitrogen 3 mg/dL (7-17); Carbon Dioxide 23 mmol/L (22-30); Chloride 104 mmol/L (98-107); Glucose 119 mg/dL (74-99); Magnesium 1.5 mg/dL (1.6-2.3); Non-African American GFR(CKD) >90 (>60 ml/min/1.73 sqM); Sodium 142 mmol/L (137-145); Total Bilirubin 10.8 mg/dL (0.2-1.3); Total Protein 8.7 g/dL (6.3-8.2)
[2020-03-24] MEDS: METOPROLOL TARTRATE 25 MG TAB PO SCH (09:13)
[2020-03-24] MEDS: PANTOPRAZOLE 40 MG TABLET PO SCH (09:13)
[2020-03-24] MEDS: LACTULOSE 20 GM/30 ML CUP PO SCH ×4 (09:13→20:59)
[2020-03-24 09:19] LABS: Potassium 4.2 mmol/L (3.5-5.1)
--- NOTE | 2020-03-24 11:08 | US ---
EXAMINATION TYPE: US abdomen limited DATE OF EXAM: 03/24/2020 COMPARISON: US 03/10/2020 CLINICAL HISTORY: ascites . Moderate amount of ascites visualized, largest pocket left lower quadrant measuring 10.7 cm IMPRESSION: Moderate ascites
[2020-03-24 11:30] LABS: Anisocytosis Slight; Basophils % (A) 1 %; Eosinophils # (A) 0.1 k/uL (0-0.7); Eosinophils % (A) 1 %; HCT 24.2 % (34.0-46.0); Lymphocytes # (A) 0.7 k/uL (1.0-4.8); Lymphocytes % (A) 16 %; MCH 33.1 pg (25.0-35.0); MCV 100.1 fL (80.0-100.0); Macrocytosis Moderate; Monocytes # (A) 0.3 k/uL (0-1.0); Monocytes % (A) 7 %; Neutrophils # (A) 3.3 k/uL (1.3-7.7); Neutrophils % (A) 74 %; RBC 2.42 m/uL (3.80-5.40); RDW 18.2 % (11.5-15.5); WBC 4.4 k/uL (3.8-10.6)
[2020-03-24 11:33] LABS: INR 1.7 (<1.2); Prothrombin Time 16.3 sec (9.0-12.0)
[2020-03-24 11:37] LABS: Platelet Count 84 k/uL (150-450)
--- NOTE | 2020-03-24 11:59 | P.PN ---
Subjective Progress Note Date: 03/24/20 Patient has no new complaints today, continues to report abdominal pain specifically, BLOATING AND SWELLING IN HER ABDOMEN. DENIES FEVERS, CHILLS. Objective - Vital Signs Vital signs: Vital Signs Temp 98.2 F 03/24/20 00:35 Pulse 104 H 03/24/20 00:35 Resp 20 03/24/20 00:35 BP 110/68 03/24/20 00:35 Pulse Ox 96 03/24/20 00:35 Intake & Output 03/23/20 03/24/20 03/24/20 18:59 06:59 18:59 Weight 81.647 kg 81.647 kg - Exam Gen: awake, alert HEENT: normocephalic, atraumatic, good hearing acuity, moist mucous membranes Resp: CTAB, good air exchange, no accessory muscle use, no wheezes, crackles, rhonchi CVS: good distal perfusion x 4, RRR, no murmurs, clicks, gallops GI: +tense ascites : no SPT, no CVAT, maradiaga catheter not present MSK: + pitting edema, anasarca, diffuse jaundice, no clubbing Neuro: non-focal, no sensory deficits, appropriate tone Psych: cooperative, depressed mood - Labs CBC & Chem 7: 03/24/20 10:43 03/24/20 08:10 Labs: Abnormal Lab Results - Last 24 Hours (Table) 03/24/20 03/24/20 03/24/20 Range/Units 00:37 08:10 08:10 RBC (3.80-5.40) m/uL Hgb (11.4-16.0) gm/dL Hct (34.0-46.0) % MCV (80.0-100.0) fL RDW (11.5-15.5) % Plt Count (150-450) k/uL Lymphocytes # (1.0-4.8) k/uL PT (9.0-12.0) sec INR (<1.2) BUN 3 L (7-17) mg/dL Creatinine 0.51 L (0.52-1.04) mg/dL Glucose 119 H (74-99) mg/dL Calcium 8.0 L (8.4-10.2) mg/dL Magnesium 1.5 L (1.6-2.3) mg/dL Total Bilirubin 10.8 H (0.2-1.3) mg/dL AST 175 H (14-36) U/L Alkaline Phosphatase 276 H (38-126) U/L Ammonia 96 H 51 H (<30) umol/L Total Protein 8.7 H (6.3-8.2) g/dL Albumin 3.2 L (3.5-5.0) g/dL 03/24/20 03/24/20 Range/Units 10:43 11:09 RBC 2.42 L (3.80-5.40) m/uL Hgb 8.0 L (11.4-16.0) gm/dL Hct 24.2 L (34.0-46.0) % MCV 100.1 H (80.0-100.0) fL RDW 18.2 H (11.5-15.5) % Plt Count 84 L (150-450) k/uL Lymphocytes # 0.7 L (1.0-4.8) k/uL PT 16.3 H (9.0-12.0) sec INR 1.7 H (<1.2) BUN (7-17) mg/dL Creatinine (0.52-1.04) mg/dL Glucose (74-99) mg/dL Calcium (8.4-10.2) mg/dL Magnesium (1.6-2.3) mg/dL Total Bilirubin (0.2-1.3) mg/dL AST (14-36) U/L Alkaline Phosphatase (38-126) U/L Ammonia (<30) umol/L Total Protein (6.3-8.2) g/dL Albumin (3.5-5.0) g/dL Assessment and Plan Assessment: symptomatic ascitis minimal acute hepatic encephalopathy, secondary to alcoholic hepatitis and end stage liver disease chronic anemia and thrombocytopenia with no evidence of acute bleeding constipation seizure disorder medical non compliance lactic acidosis acute severe alcohol intoxication , monitor for alcohol withdrawal syndrome plan gentle IV fluid hydration monitor vital signs midodrin for hypotension opioids for pain as needed IR for abd paracentesis again counseled to quit alcohol Benzo per CIWA thiamine folic acid PPI resume lasix and spironolactone lactulose QID target 3-5 BM daily monitor electrolytes seizure precautions continue keppra check ammonia level CODE STATUS:full code DVT prophylaxis: heparin sc tid Discussed with: Patient, ER, RN Anticipated length of stay > than [address]: pending clinical course
--- NOTE | 2020-03-24 16:12 | US ---
EXAMINATION TYPE: US paracentesis abd w/image DATE OF EXAM: 03/24/2020 COMPARISON: NONE HISTORY: Ascites. PROCEDURE: Maximal barrier technique was utilized. The skin overlying a suitable pocket of fluid was localized with ultrasound and the overlying skin was prepped and draped. Ultrasound was utilized with sterile technique. Lidocaine was used for local anesthesia and a skin millicent made with a scalpel. Catheter was advanced under direct ultrasound guidance into a suitable pocket of fluid and approximately 3.8 liter s of yellow fluid were removed. Catheter was withdrawn and hemostasis achieved. There is no immedia te complication; the patient is discharged in stable condition. IMPRESSION: STATUS POST ULTRASOUND GUIDED PARACENTESIS FOR PALLIATION OF ASCITES. THIS PROCEDURE WA S PERFORMED BY THE UNDERSIGNED.
[2020-03-24 16:21] LABS: Appearance,BF Clear; Color,BF Yellow
[2020-03-24 16:22] LABS: Nucleated Cells, Body Fluid 25 /uL; RBC, Body Fluid 144 /uL
[2020-03-24 18:15] LABS: Polynuclear WBC,Body Fluid 7 %
[2020-03-24 18:16] LABS: Mononuclear WBC,Body Fluid 93 %
--- NOTE | 2020-03-25 00:27 | P.CONS ---
History of Present Illness - Reason for Consult Consult date: 03/25/20 Alcoholic hepatitis, cirrhosis Requesting physician: Alannah Jacob - Chief Complaint Abdominal distension - History of Present Illness 29-year-old female with a medical history significant for alcohol abuse, multiple recent admissions for acute alcoholic hepatitis with ascites and encephalopathy, seizure disorder and alcohol abuse who was transferred from outside hospital due to ascites and liver disease. Patient was recently discharged from the hospital approximately one week ago when she was seen for similar complaints. Patient has ongoing alcohol abuse. Previously she has been transferred to [facility] but is not a candidate for liver transplantat [facility] due to her ongoing alcohol abuse. She has required paracentesis in the past and underwent paracentesis today with 3.4 L of ascitic fluid removed. No signs or symptoms of GI bleeding but the patient is confused and able to provide little history. Laboratory evaluation on presentation significant for total bilirubin 10.8, alkaline phosphatase 276, AST 175 and ALT 30 with hemoglobin 8 and stable from discharge hemoglobin of 7.5. Ammonia 51 on presentation. Review of Systems REVIEW OF SYSTEMS: CONSTITUTIONAL: Denies any fevers, chills, but does report fatigue.. CARDIOVASCULAR: Denies any chest pain, palpitations high or low blood pressures RESPIRATORY: Denies any shortness of breath, hemoptysis or cough. GENITOURINARY: No dysuria or hematuria. MUSCULOSKELETAL: No weakness reported. SKIN: Denies any new rashes or lesions, or pallor, patient has jaundice as on prior admission and has a wound on the left side of her face.. PSYCHIATRIC: Denies any depression or anxiety, history of alcohol abuse. NEUROLOGY: Denies headache, denies any new focal deficits, history of seizures. EARS/NOSE/THROAT: No recent hearing change, congestion, nasal discharge or sore throat. EYES: No pain in eyes, discharge or change in vision. GASTROINTESTINAL: As per HPI. Past Medical History Past Medical History: GERD/Reflux, Liver Disease, Pneumonia, Seizure Disorder Additional Past Medical History / Comment(s): Pt recently admitted to [facility] on 03/09/20 with alcohol abuse/acute hepatic encephalopathy/end stage liver disease/ascitis with paracentesis/thrombocytopenia/hypomagnesemia. Other HX: Last seizure 03/23/20, bronchitis, sepsis in 2013, UTI, cholecystitis, pancy topenia, chronic anemia, pancreatitis History of Any Multi-Drug Resistant Organisms: None Reported Past Surgical History: Section, Orthopedic Surgery Additional Past Surgical History / Comment(s): R ankle surgery d/t fracture, R foot surgery-pt cannot recall cause Past Anesthesia/Blood Transfusion Reactions: No Reported Reaction, Motion Sickness Additional Past Anesthesia/Blood Transfusion Reaction / Comm: Pt has received blood in past without reaction. Smoking Status: Former smoker - Past Family History Father Family Medical History: No Reported History Additional Family Medical History / Comment(s): anxiety Mother Family Medical History: No Reported History Additional Family Medical History / Comment(s): Mother is healthy Medications and Allergies Home Medications Medication Instructions Recorded Confirmed Type Folic Acid 1 mg PO DAILY 02/10/20 03/23/20 History Lactulose 30 gm PO QID 02/10/20 03/23/20 History Pantoprazole [Protonix] 40 mg PO DAILY PRN 02/10/20 03/23/20 History Spironolactone [Aldactone] 25 mg PO DAILY 02/10/20 03/23/20 History Thiamine [Vitamin B-1] 100 mg PO DAILY 02/10/20 03/23/20 History levETIRAcetam [Keppra] 750 mg PO BID 02/10/20 03/23/20 History Furosemide [Lasix] 40 mg PO DAILY 30 Days #30 tab 02/11/20 03/23/20 Rx Potassium Chloride ER [K-Dur 20] 20 meq PO DAILY 30 Days #30 tab 02/11/2003/14 Rx Multivitamins, Thera [Multivitamin 1 tab PO DAILY 03/10/20 03/23/20 History (formulary)] Trimethobenzamide HCl [Tigan] 300 mg PO BID PRN 03/10/20 03/23/20 History Magnesium Oxide [Mag-Ox] 400 mg PO BID #30 tab 03/15/20 03/23/20 Rx Atomoxetine HCl [Strattera] 25 mg PO DAILY 03/23/20 03/23/20 History Metoprolol Tartrate 25 mg PO DAILY 03/23/20 03/23/20 History traMADol HCL 50 mg PO BID 03/23/20 03/23/20 History Allergies Allergy/AdvReac Type Severity Reaction Status Date / Time ceftriaxone Allergy Anaphylaxis Verified 03/23/20 20:18 Penicillins Allergy Rash/Hives Verified 03/23/20 20:18 Physical Exam Vitals: Vital Signs Temp Pulse Pulse Resp BP BP Pulse Ox 03/24/20 13:17 99.9 F H 99 21 104/56 99 03/24/20 00:35 98.2 F 104 H 20 110/68 96 03/23/20 18:45 97.8 F 105 H 20 106/65 97 Intake and Output 03/23/20 03/24/20 03/24/20 22:59 06:59 14:59 Other: Weight 81.647 kg 81.647 kg On physical examination, patient appears comfortable in no apparent distress. HEAD: Normocephalic, patient has a dressed wound on her left face. EYES: Scleral icterus. No conjunctival injection. MOUTH: No lesions, tongue midline. NECK: Trachea midline, no gross abnormalities. CHEST: Clear to auscultation with no wheezing or rhonchi appreciated. HEART: Regular rate and rhythm. ABDOMEN: Soft, mildly distended. Bowel sounds are positive. No organomegaly. No guarding or rigidity. EXTREMITIES: No pedal edema. SKIN: No rashes, jaundice. NEUROLOGIC: Alert and oriented only to person, tremulousness noted but no asterixis noted. Results CBC & Chem 7: 03/24/20 10:43 03/24/20 08:10 Labs: Abnormal Lab Results - Last 24 Hours (Table) 03/24/20 03/24/20 03/24/20 Range/Units 00:37 08:10 08:10 RBC (3.80-5.40) m/uL Hgb (11.4-16.0) gm/dL Hct (34.0-46.0) % MCV (80.0-100.0) fL RDW (11.5-15.5) % Plt Count (150-450) k/uL Lymphocytes # (1.0-4.8) k/uL PT (9.0-12.0) sec INR (<1.2) BUN 3 L (7-17) mg/dL Creatinine 0.51 L (0.52-1.04) mg/dL Glucose 119 H (74-99) mg/dL Calcium 8.0 L (8.4-10.2) mg/dL Magnesium 1.5 L (1.6-2.3) mg/dL Total Bilirubin 10.8 H (0.2-1.3) mg/dL AST 175 H (14-36) U/L Alkaline Phosphatase 276 H (38-126) U/L Ammonia 96 H 51 H (<30) umol/L Total Protein 8.7 H (6.3-8.2) g/dL Albumin 3.2 L (3.5-5.0) g/dL 03/24/20 03/24/20 Range/Units 10:43 11:09 RBC 2.42 L (3.80-5.40) m/uL Hgb 8.0 L (11.4-16.0) gm/dL Hct 24.2 L (34.0-46.0) % MCV 100.1 H (80.0-100.0) fL RDW 18.2 H (11.5-15.5) % Plt Count 84 L (150-450) k/uL Lymphocytes # 0.7 L (1.0-4.8) k/uL PT 16.3 H (9.0-12.0) sec INR 1.7 H (<1.2) BUN (7-17) mg/dL Creatinine (0.52-1.04) mg/dL Glucose (74-99) mg/dL Calcium (8.4-10.2) mg/dL Magnesium (1.6-2.3) mg/dL Total Bilirubin (0.2-1.3) mg/dL AST (14-36) U/L Alkaline Phosphatase (38-126) U/L Ammonia (<30) umol/L Total Protein (6.3-8.2) g/dL Albumin (3.5-5.0) g/dL US - abdomen: report reviewed (Ultrasound paracentesis with over 3 L of ascitic fluid removed) Assessment and Plan (1) Alcoholic hepatitis Narrative/Plan: 29-year-old female with a medical history significant for alcohol abuse with acute alcoholic hepatitis with encephalopathy, ascites and multiple recent admis sions for similar complaints. [facility] as a transfer due to alcohol intoxication and abdominal distention. Patient has a known history of noncompliance. She has continued to drink alcohol. Overall prognosis is very poor given her ongoing alcohol abuse. Patient's condition has been discussed w ith her at length on multiple occasions on prior admissions. Continue symptomatic treatment at this time. Current Visit: No Status: Acute Code(s): K70.10 - ALCOHOLIC HEPATITIS WITHOUT ASCITES SNOMED Code(s): 352943812 (2) Chronic anemia Narrative/Plan: No signs or symptoms of GI bleeding, anemia is multifactorial given myelosuppression from active alcohol abuse, underlying liver disease as well as a known history of vaginal bleeding. Current Visit: Yes Status: Acute Code(s): D64.9 - ANEMIA, UNSPECIFIED SNOMED Code(s): 670189862 (3) ETOH abuse Current Visit: Yes Status: Acute Code(s): F10.10 - ALCOHOL ABUSE, UNCOMPLICATED SNOMED Code(s): 58228696 (4) Elevated liver enzymes Current Visit: No Status: Acute Code(s): R74.8 - ABNORMAL LEVELS OF OTHER SERUM ENZYMES SNOMED Code(s): 147633103 (5) Hepatic encephalopathy Current Visit: No Status: Acute Code(s): K72.90 - HEPATIC FAILURE, UNSPECIFI ED WITHOUT COMA SNOMED Code(s): 57624387 Plan: Supportive care Okay for sodium restricted diet as tolerated Continue Lasix and Aldactone Continue lactulose 4 times a day Monitor for signs or symptoms of alcohol withdrawal currently on CIWA Limit narcotics and other sedatives in the setting of liver disease Alcohol abstinence Continue to monitor hemoglobin and hematocrit and transfuse as needed and monitor for any signs or symptoms of GI bleeding Overall patient's prognosis is very poor which is been discussed with her on numerous occasions by different members of the gastroenterology team Thank you for allowing us to participate in the care of the patient
[2020-03-25 07:50] LABS: Anisocytosis Slight; Basophils % (A) 0 %; Eosinophils % (A) 2 %; HCT 20.9 % (34.0-46.0); Lymphocytes # (A) 0.6 k/uL (1.0-4.8); Lymphocytes % (A) 29 %; MCH 34.1 pg (25.0-35.0); MCHC 33.3 g/dL (31.0-37.0); MCV 102.2 fL (80.0-100.0); Macrocytosis Moderate; Mean Platelet Volume 8.2; Monocytes # (A) 0.2 k/uL (0-1.0); Monocytes % (A) 8 %; Neutrophils # (A) 1.2 k/uL (1.3-7.7); Neutrophils % (A) 59 %; RBC 2.04 m/uL (3.80-5.40); RDW 18.4 % (11.5-15.5)
[2020-03-25 07:55] VITALS: RESP 18
[2020-03-25 07:58] LABS: Platelet Count 50 k/uL (150-450)
[2020-03-25 08:11] LABS: INR 1.8 (<1.2); Prothrombin Time 17.3 sec (9.0-12.0)
[2020-03-25 08:17] LABS: ALT 22 U/L (4-34); AST 122 U/L (14-36); African American GFR (CKD) >90 (>60 ml/min/1.73 sqM); Albumin 2.3 g/dL (3.5-5.0); Alkaline Phosphatase 232 U/L (38-126); Anion Gap 8 mmol/L; Blood Urea Nitrogen <2 mg/dL (7-17); Calcium 7.4 mg/dL (8.4-10.2); Carbon Dioxide 28 mmol/L (22-30); Chloride 102 mmol/L (98-107); Glucose 104 mg/dL (74-99); Non-African American GFR(CKD) >90 (>60 ml/min/1.73 sqM); Potassium 3.1 mmol/L (3.5-5.1); Sodium 138 mmol/L (137-145); Total Bilirubin 6.8 mg/dL (0.2-1.3); Total Protein 6.5 g/dL (6.3-8.2)
[2020-03-25] MEDS: LACTULOSE 20 GM/30 ML CUP PO SCH (08:47)
[2020-03-25] MEDS: SPIRONOLACTONE 25 MG TAB PO SCH (08:48)
[2020-03-25] MEDS: PANTOPRAZOLE 40 MG TABLET PO SCH (08:48)
[2020-03-25] MEDS: HEPARIN SODIUM,PORCINE 5,000 UNIT/ML 1 ML VIAL SQ SCH (08:48)
[2020-03-25] MEDS: FOLIC ACID 1 MG TAB PO SCH (08:48)
[2020-03-25] MEDS: THIAMINE 100 MG TAB PO SCH (08:48)
[2020-03-25] MEDS: FUROSEMIDE 40 MG TAB PO SCH (08:48)
[2020-03-25] MEDS: METOPROLOL TARTRATE 25 MG TAB PO SCH (08:48)
--- NOTE | 2020-03-25 10:57 | P.DS ---
Providers Date of admission: 03/23/20 19:12 Attending physician: Alannah Jacob MD Consults: 03/23/20 19:13 Consult Physician Routine Consulting Provider: Jefry Hartley Consult Reason/Comments: Abdominal pain, ascites, hyperbilirubinemia Do you want consulting provider notified?: Yes [facility] Course: symptomatic ascites minimal acute hepatic encephalopathy, secondary to alcoholic hepatitis and end stage liver disease chronic anemia and thrombocytopenia with no evidence of acute bleeding constipation seizure disorder medical non compliance lactic acidosis acute severe alcohol intoxication , monitor for alcohol withdrawal syndrome 29 year old woman with ESLD from alcohol use presented with confusion, jaundice, and abdominal pain. She has been non-compliant with her medications, and has built up significant amount of ascites in her abdomen prompting discomfort. GI consult was placed, and her home medications were restarted. IR removed fluid from her abdomen providing significant relief. Her mentation cleared up with the use of lactulose. Patient was counseled regarding poor prognosis, and accepted hospice services on discharge home. Her medications were sent to the pharmacy for medications to bedside service. Patient Condition at Discharge: Poor Plan - Discharge Summary Discharge Rx Participant: No New Discharge Prescriptions: New LORazepam [Ativan] 1 mg PO Q4H PRN 3 Days #15 tab PRN Reason: Anxiety Continue Multivitamins, Thera [Multivitamin (formulary)] 1 tab PO DAILY traMADol HCL 50 mg PO BID Spironolactone [Aldactone] 25 mg PO DAILY #30 tab Folic Acid 1 mg PO DAILY #30 tab Potassium Chloride ER [K-Dur 20] 20 meq PO DAILY 30 Days #30 tab levETIRAcetam [Keppra] 750 mg PO BID #30 tab Lactulose 30 gm PO QID #3600 ml Furosemide [Lasix] 40 mg PO DAILY 30 Days #30 tab Magnesium Oxide [Mag-Ox] 400 mg PO BID #30 tab Metoprolol Tartrate 25 mg PO DAILY #30 tab Pantoprazole [Protonix] 40 mg PO DAILY PRN #30 tab PRN Reason: GERD Atomoxetine HCl [Strattera] 25 mg PO DAILY #30 cap Discontinued Thiamine [Vitamin B-1] 100 mg PO DAILY Trimethobenzamide HCl [Tigan] 300 mg PO BID PRN PRN Reason: Nausea Discharge Medication List Multivitamins, Thera [Multivitamin (formulary)] 1 tab PO DAILY 03/10/20 [History] traMADol HCL 50 mg PO BID 03/23/20 [History] Atomoxetine HCl [Strattera] 25 mg PO DAILY #30 cap 03/25/20 [Rx] Folic Acid 1 mg PO DAILY #30 tab 03/25/20 [Rx] Furosemide [Lasix] 40 mg PO DAILY 30 Days #30 tab 03/25/20 [Rx] LORazepam [Ativan] 1 mg PO Q4H PRN 3 Days #15 tab 03/25/20 [Rx] Lactulose 30 gm PO QID #3600 ml 03/25/20 [Rx] Magnesium Oxide [Mag-Ox] 400 mg PO BID #30 tab 03/25/20 [Rx] Metoprolol Tartrate 25 mg PO DAILY #30 tab 03/25/20 [Rx] Pantoprazole [Protonix] 40 mg PO DAILY PRN #30 tab 03/25/20 [Rx] Potassium Chloride ER [K-Dur 20] 20 meq PO DAILY 30 Days #30 tab 03/25/20 [Rx] Spironolactone [Aldactone] 25 mg PO DAILY #30 tab 03/25/20 [Rx] levETIRAcetam [Keppra] 750 mg PO BID #30 tab 03/25/20 [Rx] Follow up Appointment(s)/Referral(s): [facility], [NON-STAFF] - (Hospice ) [facility] [Primary Care Provider] - 1-2 days
[2020-03-25 11:57] VITALS: BP 99/56; PULSE 103; TEMP 98.8
== END 2020-03-25 14:24 | disposition hospice, home (50) | DRG 433 ==
LOC: EC 18:36 → 4SSUR 19:12 → 5NMEDONC 03-24 15:14
PROVIDERS: ADMIT Internal Medicine; ATTEND Internal Medicine
PROC: 0W9G3ZZ Drainage of Peritoneal Cavity, Percutaneous Approach (ICD-10-PCS; principal; 2020-03-24)
DX: K70.11 Alcoholic hepatitis with ascites (principal); F10.239 Alcohol dependence with withdrawal, unspecified; E87.2 Acidosis; K72.90 Hepatic failure, unspecified without coma; Y90.8 Blood alcohol level of 240 mg/100 ml or more; F10.229 Alcohol dependence with intoxication, unspecified; G40.909 Epilepsy, unspecified, not intractable, without status epilepticus; F90.9 Attention-deficit hyperactivity disorder, unspecified type; K59.00 Constipation, unspecified; Z51.5 Encounter for palliative care; Z66 Do not resuscitate; Z59.0 Homelessness; D64.9 Anemia, unspecified; D69.6 Thrombocytopenia, unspecified; F41.9 Anxiety disorder, unspecified; K70.31 Alcoholic cirrhosis of liver with ascites; Z79.899 Other long term (current) drug therapy; Z87.891 Personal history of nicotine dependence; Z91.14 Patient's other noncompliance with medication regimen; Z91.19 Patient's noncompliance with other medical treatment and regimen; Z87.440 Personal history of urinary (tract) infections; Z87.01 Personal history of pneumonia (recurrent); Z90.49 Acquired absence of other specified parts of digestive tract; Z81.8 Family history of other mental and behavioral disorders; Z88.1 Allergy status to other antibiotic agents; Z88.0 Allergy status to penicillin
CPT/HCPCS: 49083; 76705; 80053; 82140; 83605; 83735; 85025; 85610; 87070; 87075; 87205; 89050; 96372; 96374; 96375; 96376; 99285

== ENCOUNTER 2020-04-10 14:37 | Emergency (ER) | payer OTHER ==
[2020-04-10 14:55] VITALS: TEMP 98.9
--- NOTE | 2020-04-10 15:25 | ED ---
General Adult HPI - General Source: patient, RN notes reviewed, old records reviewed, Caregiver Mode of arrival: ambulatory Limitations: no limitations <Michele Blas - Last Filed: 04/10/20 19:09> <Amanda Mcclellan - Last Filed: 04/11/20 12:16> - General Chief complaint: Recheck/Abnormal Lab/Rx Stated complaint: Hospice Sent Time Seen by Provider: 04/10/20 15:10 - History of Present Illness Initial comments: 29-year-old female patient past medical history of end-stage liver disease secondary to alcohol abuse plus ED for request to be placed into hospice. Patient declining any acute complaints at this time. Systemic: Pt denies fatigue, fever/chills, rash. Pt denies weakness, night sweats, weight loss. Neuro: Pt denies headache, visual disturbances, syncope or pre-syncope. HEENT: Pt denies ocular discharge or irritation, otalgia, rhinorrhea, pharyngitis or notable lymphadenopathy. Cardiopulmonary: Pt denies chest pain, SOB, heart palpitations, dyspnea on exertion. Abdominal/GI: Pt denies abdominal pain, n/v/d. : Pt denies dysuria, burning w/ urination, frequency/urgency. Denies new onset urinary or bowel incontinence. MSK: Pt denies myalgia, loss of strength or function in extremities. Neuro: Pt denies new onset weakness, paresthesias. (Michele Blas) - Related Data Home Medications Medication Instructions Recorded Confirmed Multivitamins, Thera [Multivitamin 1 tab PO DAILY 03/10/20 03/23/20 (formulary)] traMADol HCL 50 mg PO BID 03/23/20 03/23/20 Previous Rx's Medication Instructions Recorded Atomoxetine HCl [Strattera] 25 mg PO DAILY #30 cap 03/25/20 Folic Acid 1 mg PO DAILY #30 tab 03/25/20 Furosemide [Lasix] 40 mg PO DAILY 30 Days #30 tab 03/25/20 LORazepam [Ativan] 1 mg PO Q4H PRN 3 Days #15 tab 03/25/20 Lactulose [Cephulac] 20 gm PO BID #1800 ml 03/25/20 Magnesium Oxide [Mag-Ox] 400 mg PO BID #30 tab 03/25/20 Metoprolol Tartrate 25 mg PO DAILY #30 tab 03/25/20 Pantoprazole [Protonix] 40 mg PO DAILY PRN #30 tab 03/25/20 Potassium Chloride ER [K-Dur 20] 20 meq PO DAILY 30 Days #30 tab 03/25/20 Spironolactone [Aldactone] 25 mg PO DAILY #30 tab 03/25/20 levETIRAcetam [Keppra] 750 mg PO BID #30 tab 03/25/20 Allergies Allergy/AdvReac Type Severity Reaction Status Date / Time ceftriaxone Allergy Anaphylaxis Verified 03/23/20 20:18 Penicillins Allergy Rash/Hives Verified 03/23/20 20:18 Review of Systems ROS Other: All systems not noted in ROS Statement are negative. <Michele Blas - Last Filed: 04/10/20 19:09> ROS Other: All systems not noted in ROS Statement are negative. <Amanda Mcclellan - Last Filed: 04/11/20 12:16> ROS Statement: Those systems with pertinent positive or pertinent negative responses have been documented in the HPI. Past Medical History Past Medical History: GERD/Reflux, Liver Disease, Pneumonia, Seizure Disorder Additional Past Medical History / Comment(s): Pt recently admitted to [facility] on 03/09/20 with alcohol abuse/acute hepatic encephalopathy/end stage liver disease/ascitis with paracentesis/thrombocytopenia/hypomagnesemia. Other HX: Last seizure 03/23/20, bronchitis, sepsis in 2013, UTI, cholecystitis, pancytopenia, chronic anemia, pancreatitis History of Any Multi-Drug Resistant Organisms: None Reported Past Surgical History: Section, Orthopedic Surgery Additional Past Surgical History / Comment(s): R ankle surgery d/t fracture, R foot surgery-pt cannot recall cause Past Anesthesia/Blood Transfusion Reactions: No Reported Reaction, Motion Sickness Additional Past Anesthesia/Blood Transfusion Reaction / Comment(s): Pt has received blood in past without reaction. Past Psychological History: ADD/ADHD, Anxiety Smoking Status: Former smoker Past Alcohol Use History: Daily, Heavy - Past Family History Father Family Medical History: No Reported History Additional Family Medical History / Comment(s): anxiety Mother Family Medical History: No Reported History Additional Family Medical History / Comment(s): Mother is healthy <Michele Blas - Last Filed: 04/10/20 19:09> General Exam Limitations: no limitations <Michele Blas - Last Filed: 04/10/20 19:09> - General Exam Comments Initial Comments: Constitutional: NAD, AOX3, Pt has pleasant affect. HEENT: NC/AT, trachea midline, neck supple, no lymphadenopathy.External ears appear normal, without discharge. Mucous membranes moist. Eyes PERRLA, EOM intact. Jaundice noted. No pallor noted. Cardiopulmonary: RRR, no murmurs, rubs or gallops, no JVD noted. Lungs CTAB in anterior and posterior lovell. No peripheral edema. Abdominal exam: Abdomen soft and non-distended. Abdomen non-tender to palpation in all 4 quadrants. No hepatosplenomegaly. No ecchymosis Neuro: CN II-XII grossly intact. MSK:Full active ROM in upper and lower extremities (Michele Blas) Course Vital Signs 04/10/20 04/10/20 14:50 17:20 Temperature 98.9 F Pulse Rate 109 H 96 Respiratory 16 18 Rate Blood Pressure 96/56 128/78 O2 Sat by Pulse 100 98 Oximetry Medical Decision Making <Michele Blas - Last Filed: 04/10/20 19:09> <Amanda Mcclellan - Last Filed: 04/11/20 12:16> - Medical Decision Making 29-year-old female patient presents to ED for evaluation of possible hospice placement patient does have end-stage liver disease. Patient is denying any acute complaints. Physical exam displayed jaundice. Patient was evaluated by Dr. Muñiz for possible admission. he examined patient and then contacted hospice facility. Patient can be followed up on an outpatient does not meet inpatient criteria. She'll be discharged. Case discussed with Dr. Arnold. (Michele Blas) I was available for consultation in the emergency department. The history and physical exam were done by the midlevel provider. I was consulted for this patients care. I reviewed the case with the midlevel provider and based on their presentation of the patient, I agree with the assessment, medical decision making and plan of care as documented. I spoke with Dr. Muñiz in regards to the patients care, not Dr. Arnold. Chart was dictated using Droplr dictation software. Attempts were made to correct any dictation errors however some typographical errors may persist. Patient was seen during a national state of emergency due to the Covid-19 pandemic. (Amanda Mcclellan) Disposition Is patient prescribed a controlled substance at d/c from ED?: No <Michele Blas - Last Filed: 04/10/20 19:09> <Amanda Mcclellan - Last Filed: 04/11/20 12:16> Clinical Impression: End stage liver disease Disposition: HOME SELF-CARE Condition: Stable Instructions (If sedation given, give patient instructions): Cirrhosis (ED) Additional Instructions: follow-up with primary care provider and hospice agency. Return to ER if any worsening symptoms. Referrals: [facility] [REFERRING] - 1-2 days
[2020-04-10 17:21] VITALS: BP 128/78; PULSE 96; RESP 18
--- NOTE | 2020-04-10 19:33 | P.CONS ---
History of Present Illness - Reason for Consult Consult date: 04/10/20 Medical management Requesting physician: Amanda Mcclellan - Chief Complaint Distended abdomen - History of Present Illness Consultation: This is a 29-year-old patient was a diagnosis of end-stage liver disease secondary to alcoholism. Also history of seizure disorder. Patient has continued to drink alcohol. Patient was recently in the hospital on March 23 and discharge in March 25. She had then presented with acute hepatic encephalopathy and had been actively drinking. She was discharged with hospice. The plan of hospice at that time had come to the hospital but because patient was intoxicated and patient's parents could not be reached patient could not be signed up. Patient does live with the caregiver Donald has been taking care of for for quite some time. Patient had called up hospice today sitting that she felt she may need to have paracentesis done. Hence she was sent out of the ER. Patient also drank of wine: Today. Her abdomen is not distended ready slightly so. No shortness of breath. No nausea vomiting. Patient is able to walk to the bathroom and lower. Also had breakfast today. Review of systems: GEN.: Tired EYES: 8 tenderness HEENT: None NECK: None RESPIRATORY: Mild shortness of breath CARDIOVASCULAR: None GASTROINTESTINAL: Slight abdominal distention GENITOURINARY: None MUSCULOSKELETAL: None LYMPHATICS: None HEMATOLOGICAL: None PSYCHIATRY: None NEUROLOGICAL: None Past medical history to include: End-stage liver disease from alcoholism, epilepsy, pancreatitis, chronic anemia, alcohol use disorder, anxiety Social history: Lives with Donald. 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 She was drinking up to a gallon of water current to have days. She been smoking on and off since 2007. Alcohol intake is decreased. Physical examination: VITAL SIGNS: 98.9, 109, 16, 96/56, 100% on room air GENERAL: BMI 24, sitting at edge of bed, awake. EYES: [Pupils equal. Conjunctiva icterus l. HEENT: External appearance of nose and ears normal, oral cavity grossly normal. NECK: JVD not raised; masses not palpable. HEART: First and second heart sounds are normal; no edema. LUNGS: Respiratory rate normal; clear to auscultation. ABDOMEN: Soft, minimal distention nontender, liver spleen not palpable, no masses palpable. PSYCH: Alert and oriented x3; mood and affect normal. NEUROLOGICAL: Cranial nerves grossly intact; no facial asymmetry, power and sensation grossly intact. LYMPHATICS: No lymph nodes palpable in the axilla and neck INVESTIGATIONS, reviewed in the clinical context: White count 2 hemoglobin 7 platelets 50 pro time 17.3 potassium 3.1 creatinine 0.51 bilirubin 6.8 AST 122 albumin 2.3 Assessment: -End-stage liver disease secondary to alcoholism -Alcohol use disorder -Pancytopenia from cirrhosis and alcoholism -Hypoalbuminemia from liver disease -Prolonged pro time from underlying cirrhosis Plan: Spoke to the nurse in charge from [facility], telephone number [phone]. Next pain to that patient did not have any criteria for admission currently. Patient is able to eat she is able to walk. Her caregiver Donald is present. Patient can be discharged home with a caregiver. Patient is compos mentis and can sign her own consent as she is an adult. The hospice team to come in and sign him up and patient can then be discharged. I converted this to the physician assistant engineer Michele. Past Medical History Past Medical History: GERD/Reflux, Liver Disease, Pneumonia, Seizure Disorder Additional Past Medical History / Comment(s): Pt recently admitted to [facility] on 03/09/20 with alcohol abuse/acute hepatic encephalopathy/end stage liver disease/ascitis with paracentesis/thrombocytopenia/hypomagnesemia. Other HX: Last seizure 03/23/20, bronchitis, sepsis in 2013, UTI, cholecystitis, pancytopenia, chronic anemia, pancreatitis History of Any Multi-Drug Resistant Organisms: None Reported Past Surgical History: Section, Orthopedic Surgery Additional Past Surgical History / Comment(s): R ankle surgery d/t fracture, R foot surgery-pt cannot recall cause Past Anesthesia/Blood Transfusion Reactions: No Reported Reaction, Motion Sickness Additional Past Anesthesia/Blood Transfusion Reaction / Comm: Pt has received blood in past without reaction. Past Psychological History: ADD/ADHD, Anxiety Smoking Status: Former smoker Past Alcohol Use History: Daily, Heavy - Past Family History Father Family Medical History: No Reported History Additional Family Medical History / Comment(s): anxiety Mother Family Medical History: No Reported History Additional Family Medical History / Comment(s): Mother is healthy Medications and Allergies Home Medications Medication Instructions Recorded Confirmed Type Multivitamins, Thera [Multivitamin 1 tab PO DAILY 03/10/20 03/23/20 History (formulary)] traMADol HCL 50 mg PO BID 03/23/20 03/23/20 History Atomoxetine HCl [Strattera] 25 mg PO DAILY #30 cap 03/25/20 Rx Folic Acid 1 mg PO DAILY #30 tab 03/25/20 Rx Furosemide [Lasix] 40 mg PO DAILY 30 Days #30 tab 03/25/20 Rx LORazepam [Ativan] 1 mg PO Q4H PRN 3 Days #15 tab 03/25/20 Rx Lactulose [Cephulac] 20 gm PO BID #1800 ml 03/25/20 Rx Magnesium Oxide [Mag-Ox] 400 mg PO BID #30 tab 03/25/20 Rx Metoprolol Tartrate 25 mg PO DAILY #30 tab 03/25/20 Rx Pantoprazole [Protonix] 40 mg PO DAILY PRN #30 tab 03/25/20 Rx Potassium Chloride ER [K-Dur 20] 20 meq PO DAILY 30 Days #30 tab 03/25/20 Rx Spironolactone [Aldactone] 25 mg PO DAILY #30 tab 03/25/20 Rx levETIRAcetam [Keppra] 750 mg PO BID #30 tab 03/25/20 Rx Allergies Allergy/AdvReac Type Severity Reaction Status Date / Time ceftriaxone Allergy Anaphylaxis Verified 03/23/20 20:18 Penicillins Allergy Rash/Hives Verified 03/23/20 20:18 Physical Exam Vitals: Vital Signs Temp Pulse Resp BP Pulse Ox 04/10/20 17:20 96 18 128/78 98 04/10/20 14:50 98.9 F 109 H 16 96/56 100 Intake and Output 04/10/20 04/10/20 04/10/20 06:59 14:59 22:59 Other: Weight 65.317 kg
== END 2020-04-10 17:20 | disposition home or self-care (01) ==
LOC: EC 14:37
DX: N18.6 End stage renal disease (principal); R17 Unspecified jaundice; F41.9 Anxiety disorder, unspecified; F90.9 Attention-deficit hyperactivity disorder, unspecified type; K21.9 Gastro-esophageal reflux disease without esophagitis; Z88.0 Allergy status to penicillin; Z88.1 Allergy status to other antibiotic agents; Z87.891 Personal history of nicotine dependence
CPT/HCPCS: 99284

== ENCOUNTER 2020-04-16 15:03 | Observation (INO) | payer OTHER ==
[2020-04-16] MEDS ORDERED: LORazepam 2 MG/ML INJ IV STA (15:33)
[2020-04-16] MEDS ORDERED: METOCLOPRAMIDE 5 MG/ML 2 ML VIAL IVP STA (15:33)
--- NOTE | 2020-04-16 15:56 | XR ---
EXAMINATION TYPE: XR chest 2V DATE OF EXAM: 04/16/2020 COMPARISON: Prior chest x-ray 01/07/2020 HISTORY: Weakness, difficulty breathing TECHNIQUE: Frontal and lateral views of the chest are obtained. FINDINGS: Bandlike areas of increased attenuation within the lungs may reflect atelectasis or scarri ng. Lung lines are low. There is no evident thorax, there may be small pleural effusion. Heart size i s stable. Some improved aeration, lung volumes noted best compared to prior exam. IMPRESSION: Findings are similar to prior exam, some improved aeration, lung volume, difficult to ex clude small effusion, probable associated atelectasis or scarring.
--- NOTE | 2020-04-16 16:08 | ED ---
Weakness HPI - General Chief complaint: Weakness Stated complaint: GALILEO, Heart Issue Time Seen by Provider: 04/16/20 15:18 Source: family Mode of arrival: ambulatory Limitations: no limitations - History of Present Illness Initial comments: 29-year-old female past history of end-stage liver failure secondary to alcohol abuse, or cirrhosis and ascites who presents emergency Department with reported generalized weakness and shortness of breath. Patient arrives with her pyrometer mechanic who provides the history. He states that the patient was evaluated on the and was sent home from the hospital after she did not meet inpatient criteria for hospice. Reports they met with hospice nurse however she has not officially signed on. She has gotten progressively weak over the past several days. Poor by mouth intake. Complaints of palpitations and difficulty breathing. No cough or hemoptysis. No fevers or chills. The patient continues to drink. States that she had half a beer today. Ports to increasing abdominal fullness with concern that she needs a paracentesis. Denies any vomiting. Admits abdominal pain. Reports urine has been extremely dark in coloration. No other alleviating, precipitating or modifying factors - Related Data Home Medications Medication Instructions Recorded Confirmed traMADol HCL 50 mg PO BID 03/23/20 04/16/20 Previous Rx's Medication Instructions Recorded Atomoxetine HCl [Strattera] 25 mg PO DAILY #30 cap 03/25/20 Folic Acid 1 mg PO DAILY #30 tab 03/25/20 Furosemide [Lasix] 40 mg PO DAILY 30 Days #30 tab 03/25/20 LORazepam [Ativan] 1 mg PO Q4H PRN 3 Days #15 tab 03/25/20 Lactulose [Cephulac] 20 gm PO BID #1800 ml 03/25/20 Magnesium Oxide [Mag-Ox] 400 mg PO BID #30 tab 03/25/20 Metoprolol Tartrate 25 mg PO DAILY #30 tab 03/25/20 Pantoprazole [Protonix] 40 mg PO DAILY PRN #30 tab 03/25/20 Potassium Chloride ER [K-Dur 20] 20 meq PO DAILY 30 Days #30 tab 03/25/20 Spironolactone [Aldactone] 25 mg PO DAILY #30 tab 03/25/20 levETIRAcetam [Keppra] 750 mg PO BID #30 tab 03/25/20 Allergies Allergy/AdvReac Type Severity Reaction Status Date / Time ceftriaxone Allergy Anaphylaxis Verified 04/16/20 18:11 Penicillins Allergy Rash/Hives Verified 04/16/20 18:11 Review of Systems ROS Statement: Those systems with pertinent positive or pertinent negative responses have been documented in the HPI. ROS Other: All systems not noted in ROS Statement are negative. Past Medical History Past Medical History: GERD/Reflux, Liver Disease, Pneumonia, Seizure Disorder Additional Past Medical History / Comment(s): Pt recently admitted to [facility] on 03/09/20 with alcohol abuse/acute hepatic encephalopathy/end stage liver disease/ascitis with paracentesis/thrombocytopenia/hypomagnesemia. Other HX: Last seizure 03/23/20, bronchitis, sepsis in 2013, UTI, cholecystitis, pancytopenia, chronic anemia, pancreatitis History of Any Multi-Drug Resistant Organisms: None Reported Past Surgical History: Section, Orthopedic Surgery Additional Past Surgical History / Comment(s): R ankle surgery d/t fracture, R foot surgery-pt cannot recall cause Past Anesthesia/Blood Transfusion Reactions: No Reported Reaction, Motion Sickness Additional Past Anesthesia/Blood Transfusion Reaction / Comment(s): Pt has received blood in past without reaction. Past Psychological History: ADD/ADHD, Anxiety Smoking Status: Former smoker Past Alcohol Use History: Daily, Heavy - Past Family History Father Family Medical History: No Reported History Additional Family Medical History / Comment(s): anxiety Mother Family Medical History: No Reported History Additional Family Medical History / Comment(s): Mother is healthy General Exam Limitations: altered mental status General appearance: lethargic Head exam: Present: atraumatic, normocephalic, normal inspection Eye exam: Present: scleral icterus ENT exam: Present: normal exam, mucous membranes moist Respiratory exam: Present: normal lung sounds bilaterally. Absent: respiratory distress, wheezes, rales, rhonchi, stridor Cardiovascular Exam: Present: normal rhythm, tachycardia GI/Abdominal exam: Present: distended Extremities exam: Present: normal inspection, full ROM, normal capillary refill. Absent: tenderness, pedal edema, joint swelling, calf tenderness Neurological exam: Present: altered Psychiatric exam: Present: flat affect Skin exam: Present: other (jaundiced) Course Vital Signs 04/16/20 04/16/20 04/16/20 15:07 17:16 18:23 Temperature 98.3 F Pulse Rate 132 H 117 H 112 H Respiratory 18 20 18 Rate Blood Pressure 105/66 117/48 113/47 Blood Pressure [Left Arm] O2 Sat by Pulse 93 L 98 97 Oximetry 04/16/20 04/16/20 19:49 20:00 Temperature 98.4 F Pulse Rate 110 H Respiratory 18 18 Rate Blood Pressure 105/56 Blood Pressure 112/70 [Left Arm] O2 Sat by Pulse 98 100 Oximetry EKG Findings - EKG Comments: EKG Findings:: EKG demonstrates a sinus tachycardia with a ventricular rate of 119. [place] 160. QRS 92. QTC 475. No acute ST segment elevations depressions concerning for ischemic changes. No signs of [id number] or brugada syndrome. Medical Decision Making - Medical Decision Making Upon arrival patient placed into room 3. A thorough history and physical exam was performed per patient up to continuous pulse ox and cardiac monitoring. 12- lead EKG performed. Patient given a dose of Ativan for impending DTs and Reglan 10 mg for nausea. Laboratory studies were conducted patient went for chest x- ray. Review the patient's labs demonstrate worsening anemia, hyponatremia, bilirubinemia with an alcohol level 414. Parent Coach is requesting admission for paracentesis. I discussed case with Dr. Muñiz. Discuss case with [facility] to state that the patient is not currently enrolled with them. Dr. Muñiz accepted admission and patient is currently awaiting a bed - Lab Data Result diagrams: 04/17/20 06:44 04/17/20 06:44 Lab Results 04/16/20 04/16/20 04/16/20 Range/Units 16:17 16:17 16:17 WBC 3.4 L (3.8-10.6) k/uL RBC 2.15 L (3.80-5.40) m/uL Hgb 7.3 L (11.4-16.0) gm/dL Hct 22.2 L (34.0-46.0) % MCV 103.5 H (80.0-100.0) fL MCH 34.0 (25.0-35.0) pg MCHC 32.9 (31.0-37.0) g/dL RDW 16.4 H (11.5-15.5) % Plt Count 115 L D (150-450) k/uL Neutrophils % 63 % Lymphocytes % 14 % Monocytes % 19 % Eosinophils % 1 % Basophils % 1 % Neutrophils # 2.2 (1.3-7.7) k/uL Lymphocytes # 0.5 L (1.0-4.8) k/uL Monocytes # 0.6 (0-1.0) k/uL Eosinophils # 0.0 (0-0.7) k/uL Basophils # 0.0 (0-0.2) k/uL Anisocytosis Slight Macrocytosis Moderate PT 14.8 H (9.0-12.0) sec INR 1.5 H (<1.2) APTT 30.3 H (22.0-30.0) sec Sodium 130 L (137-145) mmol/L Potassium 3.3 L (3.5-5.1) mmol/L Chloride 89 L (98-107) mmol/L Carbon Dioxide 28 (22-30) mmol/L Anion Gap 13 mmol/L BUN 8 (7-17) mg/dL Creatinine 0.66 (0.52-1.04) mg/dL Est GFR (CKD-EPI)AfAm >90 (>60 ml/min/1.73 sqM) Est GFR (CKD-EPI)NonAf >90 (>60 ml/min/1.73 sqM) Glucose 129 H (74-99) mg/dL Lactic Ac Sepsis Rflx Plasma Lactic Acid John (0.7-2.0) mmol/L Calcium 7.7 L (8.4-10.2) mg/dL Magnesium 1.9 (1.6-2.3) mg/dL Total Bilirubin 7.4 H (0.2-1.3) mg/dL Conjugated Bilirubin 1.7 H (0.0-0.3) mg/dL Unconjugated Bilirubin 2.4 H (0.0-1.1) mg/dL Delta Bilirubin 3.3 H (0.0-0.2) mg/dL AST 170 H (14-36) U/L ALT 33 (4-34) U/L Alkaline Phosphatase 429 H (38-126) U/L Ammonia (<30) umol/L Creatine Kinase 70 (30-135) U/L Total Protein 7.5 (6.3-8.2) g/dL Albumin 2.9 L (3.5-5.0) g/dL Serum Alcohol 414 H* mg/dL 09/03/20 09/03/20 Range/Units 16:17 16:44 WBC (3.8-10.6) k/uL RBC (3.80-5.40) m/uL Hgb (11.4-16.0) gm/dL Hct (34.0-46.0) % MCV (80.0-100.0) fL MCH (25.0-35.0) pg MCHC (31.0-37.0) g/dL RDW (11.5-15.5) % Plt Count (150-450) k/uL Neutrophils % % Lymphocytes % % Monocytes % % Eosinophils % % Basophils % % Neutrophils # (1.3-7.7) k/uL Lymphocytes # (1.0-4.8) k/uL Monocytes # (0-1.0) k/uL Eosinophils # (0-0.7) k/uL Basophils # (0-0.2) k/uL Anisocytosis Macrocytosis PT (9.0-12.0) sec INR (<1.2) APTT (22.0-30.0) sec Sodium (137-145) mmol/L Potassium (3.5-5.1) mmol/L Chloride (98-107) mmol/L Carbon Dioxide (22-30) mmol/L Anion Gap mmol/L BUN (7-17) mg/dL Creatinine (0.52-1.04) mg/dL Est GFR (CKD-EPI)AfAm (>60 ml/min/1.73 sqM) Est GFR (CKD-EPI)NonAf (>60 ml/min/1.73 sqM) Glucose (74-99) mg/dL Lactic Ac Sepsis Rflx Y Plasma Lactic Acid John 2.9 H* (0.7-2.0) mmol/L Calcium (8.4-10.2) mg/dL Magnesium (1.6-2.3) mg/dL Total Bilirubin (0.2-1.3) mg/dL Conjugated Bilirubin (0.0-0.3) mg/dL Unconjugated Bilirubin (0.0-1.1) mg/dL Delta Bilirubin (0.0-0.2) mg/dL AST (14-36) U/L ALT (4-34) U/L Alkaline Phosphatase (38-126) U/L Ammonia 57 H (<30) umol/L Creatine Kinase (30-135) U/L Total Protein (6.3-8.2) g/dL Albumin (3.5-5.0) g/dL Serum Alcohol mg/dL Disposition Clinical Impression: ETOH abuse, Transaminitis, Ascites, Liver cirrhosis, Tachycardia Disposition: ADMITTED IP TO THIS HOSP Condition: Poor Is patient prescribed a controlled substance at d/c from ED?: No Decision to Admit Reason: Admit from EC Decision Date: 04/16/20 Decision Time: 17:33
[2020-04-16 16:30] LABS: Anisocytosis Slight; Basophils % (A) 1 %; Eosinophils % (A) 1 %; HCT 22.2 % (34.0-46.0); HGB 7.3 gm/dL (11.4-16.0); Lymphocytes # (A) 0.5 k/uL (1.0-4.8); Lymphocytes % (A) 14 %; MCHC 32.9 g/dL (31.0-37.0); MCV 103.5 fL (80.0-100.0); Macrocytosis Moderate; Monocytes # (A) 0.6 k/uL (0-1.0); Monocytes % (A) 19 %; Neutrophils # (A) 2.2 k/uL (1.3-7.7); Neutrophils % (A) 63 %; RBC 2.15 m/uL (3.80-5.40); RDW 16.4 % (11.5-15.5); WBC 3.4 k/uL (3.8-10.6)
[2020-04-16 16:41] LABS: INR 1.5 (<1.2); Partial Thromboplastin Time 30.3 sec (22.0-30.0); Prothrombin Time 14.8 sec (9.0-12.0)
[2020-04-16 16:44] LABS: Lactic Acid, Venous 2.9 mmol/L (0.7-2.0)
[2020-04-16 16:53] LABS: ALT 33 U/L (4-34); AST 170 U/L (14-36); African American GFR (CKD) >90 (>60 ml/min/1.73 sqM); Albumin 2.9 g/dL (3.5-5.0); Alkaline Phosphatase 429 U/L (38-126); Anion Gap 13 mmol/L; Bilirubin, Conjugated 1.7 mg/dL (0.0-0.3); Bilirubin, Delta 3.3 mg/dL (0.0-0.2); Bilirubin,Unconjugated 2.4 mg/dL (0.0-1.1); Blood Urea Nitrogen 8 mg/dL (7-17); Calcium 7.7 mg/dL (8.4-10.2); Carbon Dioxide 28 mmol/L (22-30); Chloride 89 mmol/L (98-107); Creatine Kinase 70 U/L (30-135); Glucose 129 mg/dL (74-99); Magnesium 1.9 mg/dL (1.6-2.3); Non-African American GFR(CKD) >90 (>60 ml/min/1.73 sqM); Potassium 3.3 mmol/L (3.5-5.1); Sodium 130 mmol/L (137-145); Total Bilirubin 7.4 mg/dL (0.2-1.3); Total Protein 7.5 g/dL (6.3-8.2)
[2020-04-16 17:02] LABS: Alcohol 414 mg/dL
[2020-04-16] MEDS ORDERED: THIAMINE 100 MG/ML 2 ML VIAL IM STA (17:32)
[2020-04-16] MEDS ORDERED: LORazepam 2 MG/ML INJ IV PRN ×2 (17:32)
[2020-04-16] MEDS ORDERED: NALOXONE 0.4 MG/ML 1 ML VIAL IV PRN (17:33)
[2020-04-16] MEDS: SODIUM CHLORIDE 0.9% 1,000 ML IV SCH (17:46)
[2020-04-16] MEDS ORDERED: PANTOPRAZOLE 40 MG TABLET PO PRN (20:39)
[2020-04-16 21:08] LABS: Platelet Count 115 k/uL (150-450)
[2020-04-16] MEDS: MAGNESIUM OXIDE 400 MG TAB PO SCH (22:31)
[2020-04-16] MEDS: LACTULOSE 20 GM/30 ML CUP PO SCH (22:31)
[2020-04-16] MEDS: LORazepam 2 MG/ML INJ IV PRN (23:35)
[2020-04-17] MEDS ORDERED: METOPROLOL TARTRATE 25 MG TAB PO STA (01:35)
[2020-04-17] MEDS: THIAMINE 100 MG TAB PO SCH ×2 (06:17→17:48)
[2020-04-17 07:27] LABS: Anisocytosis Slight; Basophils % (A) 0 %; Eosinophils # (A) 0.1 k/uL (0-0.7); Eosinophils % (A) 2 %; HCT 20.2 % (34.0-46.0); Hypochromasia Slight; Lymphocytes # (A) 0.5 k/uL (1.0-4.8); Lymphocytes % (A) 15 %; MCH 34.2 pg (25.0-35.0); MCHC 32.2 g/dL (31.0-37.0); MCV 106.3 fL (80.0-100.0); Macrocytosis Marked; Mean Platelet Volume 8.6; Monocytes # (A) 0.7 k/uL (0-1.0); Monocytes % (A) 19 %; Neutrophils # (A) 2.2 k/uL (1.3-7.7); Neutrophils % (A) 61 %; RDW 16.6 % (11.5-15.5); WBC 3.5 k/uL (3.8-10.6)
[2020-04-17 07:28] LABS: African American GFR (CKD) >90 (>60 ml/min/1.73 sqM); Anion Gap 7 mmol/L; Blood Urea Nitrogen 9 mg/dL (7-17); Calcium 7.2 mg/dL (8.4-10.2); Carbon Dioxide 30 mmol/L (22-30); Chloride 93 mmol/L (98-107); Glucose 102 mg/dL (74-99); Non-African American GFR(CKD) >90 (>60 ml/min/1.73 sqM); Potassium 3.7 mmol/L (3.5-5.1); Sodium 130 mmol/L (137-145)
[2020-04-17 07:31] LABS: HGB 6.5 gm/dL (11.4-16.0)
[2020-04-17 08:16] LABS: Platelet Count 95 k/uL (150-450)
[2020-04-17] MEDS ORDERED: SPIRONOLACTONE 25 MG TAB PO SCH (09:00)
[2020-04-17] MEDS ORDERED: POTASSIUM CHLORIDE ER 20 MEQ TAB.ER PO SCH (09:00)
[2020-04-17] MEDS ORDERED: FUROSEMIDE 40 MG TAB PO SCH (09:00)
[2020-04-17] MEDS ORDERED: METOPROLOL TARTRATE 25 MG TAB PO SCH (09:00)
[2020-04-17] MEDS ORDERED: FOLIC ACID 1 MG TAB PO SCH (09:00)
[2020-04-17] MEDS: MAGNESIUM OXIDE 400 MG TAB PO SCH (09:06)
[2020-04-17] MEDS: LACTULOSE 20 GM/30 ML CUP PO SCH (09:07)
[2020-04-17] MEDS: LORazepam 2 MG/ML INJ IV PRN ×3 (09:08→16:31)
[2020-04-17] MEDS: SODIUM CHLORIDE 0.9% 1,000 ML IV SCH (09:39)
[2020-04-17] MEDS ORDERED: traMADol 50 MG TAB PO SCH (12:45)
[2020-04-17 17:49] VITALS: BP 118/58; PULSE 68; RESP 20; TEMP 99
--- NOTE | 2020-04-17 18:58 | CONS ---
CONSULTATION DATE OF DICTATION: 04/17/2020 REASON FOR CONSULTATION: Alcoholic hepatitis, anemia. HISTORY OF PRESENT ILLNESS: The patient is a 29-year-old white female with heavy alcohol abuse with multiple hospitalizations in the last 2 months with acute alcoholic hepatitis/advanced liver disease with cirrhosis. She was just discharged home 2 weeks ago. She was brought back to the emergency room by her family because of shortness of breath, abdominal pain, not feeling well and somewhat confused. Apparently she has been drinking heavily, and at the time of admission to the hospital her serum alcohol level was 414. She complains of diffuse abdominal pain. No nausea, no vomiting. Somewhat lethargic. In the emergency room, her labs show WBC of 3.4, hemoglobin of 6.5 and platelets of 95,000. Bilirubin was 7.4. AST and ALT are 170 and 33, alkaline phosphatase 429 and serum alcohol level is 414. Ammonia level was 57. PAST MEDICAL HISTORY: Acute alcoholic hepatitis with multiple hospitalizations in the last several months, heavy alcohol abuse, hepatic encephalopathy, ascites requiring large-volume paracentesis. PAST SURGICAL HISTORY: , right foot surgery, right ankle surgery. MEDICATIONS: Medications at home include multivitamin, tramadol. ALLERGIES: CEFTRIAXONE and PENICILLIN. SOCIAL HISTORY: Heavy alcohol abuse. FAMILY HISTORY: Father with anxiety. Mother healthy. REVIEW OF SYSTEMS: CARDIOPULMONARY: She does complain of shortness of breath. Denies any chest pain. NEUROLOGY: Unremarkable. PSYCHIATRIC: History of anxiety, depression. ENT/VISION: Unremarkable. CONSTITUTIONAL: No weight loss. Fatigue. No fever, chills, night sweats. HEMATOLOGY: Severe anemia. ENDOCRINE: Unremarkable. PHYSICAL EXAMINATION: She appears comfortable. No apparent distress. Vital signs are stable. Blood pressure is 107/63, pulse rate 101, temperature 100.7. HEENT examination unremarkable. Conjunctivae pink. Sclerae deeply icteric. Oral cavity no lesions. NECK: No JVD or lymph node enlargement. CHEST: Clear to auscultation. HEART: Regular rate and rhythm. ABDOMEN: Slightly distended. It was tender. Liver was palpable. Spleen no palpable. EXTREMITIES: No pedal edema. SKIN: No rashes. NEUROLOGIC: She is awake, oriented to name and place. Not to time. LABS: Labs from today show WBC 3.5, hemoglobin 6.5, platelets 95,000. AST, ALT from yesterday 170 and 33, respectively. T-bilirubin is 7.4, alkaline phosphatase 429. Ammonia 57. Alcohol level 414. IMPRESSION: 1. Acute alcoholic hepatitis superimposed on alcoholic cirrhosis of the liver with gradual decompensation/end-stage liver disease. 2. Heavy alcohol abuse. 3. Hepatic encephalopathy with slightly elevated ammonia level. 4. Severe symptomatic anemia with a hemoglobin of 6.5 requiring PRBC transfusion. Clinically no evidence of active bleeding. 5. Coagulopathy secondary to advanced liver disease. RECOMMENDATIONS: 1. Agree with PRBC transfusion. 2. Will start her on oral lactulose 30 mL 3 times daily and titrate so that she has 3 bowel movements daily. 3. Start her on oral Xifaxan. 4. Abstinence from alcohol. 5. I had a lengthy discussion with Dr. Muñiz regarding future management and care. Apparently the patient and family are interested in considering hospice consult at this time. Will follow with you closely. Thank you for this consultation. MMBURAKL / IJN: [id number] /
--- NOTE | 2020-04-17 19:04 | P.HPIM ---
History of Present Illness H&P Date: 04/17/20 Chief Complaint: Tired This is a 29-year-old patient was a diagnosis of end-stage liver disease secondary to alcoholism. Also history of seizure disorder. Patient's had mult iple presentations to the hospital. Also has continued to drink alcohol. 2 admissions ago she was made hospice. But never signed up. She lives with a crowd controller called Donald. Sometimes she will leave the place and go and go with friends drinking. Sometimes she goes to her father's place. She was here a week ago in the ER. I did call [facility] at that time. Has spoken to the patient and Donald. Patient again did not sign up. Again when drinking and went on a binge. She has been followed by Dr. Janee Raphael's office. They also edema appropriate for hospice. Patient yet again presents to the ER feeling weak diet and rundown. Oral intake is going on. Tired rundown. Had a signi ficant alcohol level. Able to carry on a conversation. Again patient's crowd controller Donald at the the bedside. Patient wants some pain medication and Ativan request to go home. Review of systems: GEN.: Tired EYES: None HEENT: None NECK: None RESPIRATORY: Mild shortness of breath CARDIOVASCULAR: None GASTROINTESTINAL: Slight abdominal distention GENITOURINARY: None MUSCULOSKELETAL: None LYMPHATICS: None HEMATOLOGICAL: None PSYCHIATRY: Anxious NEUROLOGICAL: None Past medical history to include: End-stage liver disease from alcoholism, epilepsy, pancreatitis, chronic anemia, alcohol use disorder, anxiety Social history: Lives with Donald. Oftentimes she will leave the house and go away with people for some time.. She was drinking up to a gallon of water current to have days. She been smoking on and off since 2007. Physical examination: VITAL SIGNS: 98.3, 117, 18, 105/66, 93% room air-upon presentation GENERAL: BMI 27.5, laying in bed, tired awake. EYES: [Pupils equal. Conjunctiva icterus HEENT: External appearance of nose and ears normal, oral cavity grossly normal. NECK: JVD not raised; masses not palpable. HEART: First and second heart sounds are normal; no edema. LUNGS: Respiratory rate normal; clear to auscultation. ABDOMEN: Soft, minimal distention nontender, liver spleen not palpable, no masses palpable. PSYCH: Awake, tired, able to K at a conversation. NEUROLOGICAL: Cranial nerves grossly intact; no facial asymmetry, power and sensation grossly intact. LYMPHATICS: No lymph nodes palpable in the axilla and neck INVESTIGATIONS, reviewed in the clinical context: White count 3.4 hemoglobin 7.3 platelets 1:15 potassium 3.3 creatinine 0.66 lactic acid 2.9 total bilirubin 7.4 serum alcohol 414 Assessment: -Acute alcohol intoxication -End-stage liver disease/cirrhosis secondary to alcoholism -Alcohol use disorder -Pancytopenia from cirrhosis and alcoholism -Hypoalbuminemia from liver disease -Prolonged pro time from underlying cirrhosis -Hyperbilirubinemia -Hypokalemia -Type II lactic acidosis -Clinically mild ascites Plan: Patient does indicate that she was to go home. 2 the patient that his abdomen is not distended enough for any paracentesis. Patient wants Ativan and pain medications. Did talk at length with patient and Donald about hospice. Patient is agreeable to the same again. Earlier had spoken to the recurrent trademark affixer. They have not been able to follow up with her as per patient is oftentimes not available lower reachable. Dr. Janee Rpahael the GI was also present on the floor. Discussed with her. It was felt appropriate for patient to go into hospice. Spoke to the transplant case manager. This point patient is able to carry on a conversation understand that she is in the hospital and most a month year and both me and Dr. Camargo feels that she is appropriate to make decisions. Plan is for patient to return home today with hospice. Past Medical History Past Medical History: GERD/Reflux, Liver Disease, Pneumonia, Seizure Disorder Additional Past Medical History / Comment(s): Pt recently admitted to [facility] on 03/09/20 with alcohol abuse/acute hepatic encephalopathy/end stage liver disease/ascitis with paracentesis/thrombocytopenia/hypomagnesemia. Other HX: Last seizure 03/23/20, bronchitis, sepsis in 2013, UTI, cholecystitis, pancytopenia, chronic anemia, pancreatitis History of Any Multi-Drug Resistant Organisms: None Reported Past Surgical History: Section, Orthopedic Surgery Additional Past Surgical History / Comment(s): R ankle surgery d/t fracture, R foot surgery-pt cannot recall cause Past Anesthesia/Blood Transfusion Reactions: No Reported Reaction, Motion Sickness Additional Past Anesthesia/Blood Transfusion Reaction / Comment(s): Pt has received blood in past without reaction. Past Psychological History: ADD/ADHD, Anxiety Additional Psychological History / Comment(s): Pt resides with a friend. She does not drive d/t seizures. She was recently hospitalized for a month at [facility] and is just starting to be able to walk again. She has home care thru [facility]. Smoking Status: Former smoker Past Alcohol Use History: Daily, Heavy Additional Past Alcohol Use History / Comment(s): She states she used to drink 1 gallon of vodka in 2.5 days. She has lately been drinking 1/2 gallon of vodka a day and last drank 03/23/20. Pt started smoking in 2007 and quit in 2019. Past Drug Use History: None Reported - Past Family History Father Family Medical History: No Reported History Additional Family Medical History / Comment(s): anxiety Mother Family Medical History: No Reported History Additional Family Medical History / Comment(s): Mother is healthy Medications and Allergies Home Medications Medication Instructions Recorded Confirmed Type traMADol HCL 50 mg PO BID 03/23/20 04/16/20 History Atomoxetine HCl [Strattera] 25 mg PO DAILY #30 cap 03/25/20 04/16/20 Rx Folic Acid 1 mg PO DAILY #30 tab 03/25/20 04/16/20 Rx Furosemide [Lasix] 40 mg PO DAILY 30 Days #30 tab 03/25/20 04/16/20 Rx LORazepam [Ativan] 1 mg PO Q4H PRN 3 Days #15 tab 03/25/20 04/16/20 Rx Lactulose [Cephulac] 20 gm PO BID #1800 ml 03/25/20 04/16/20 Rx Magnesium Oxide [Mag-Ox] 400 mg PO BID #30 tab 03/25/20 04/16/20 Rx Metoprolol Tartrate 25 mg PO DAILY #30 tab 03/25/20 04/16/20 Rx Pantoprazole [Protonix] 40 mg PO DAILY PRN #30 tab 03/25/20 04/16/20 Rx Potassium Chloride ER [K-Dur 20] 20 meq PO DAILY 30 Days #30 tab 03/25/20 04/16/20 Rx Spironolactone [Aldactone] 25 mg PO DAILY #30 tab 03/25/20 04/16/20 Rx levETIRAcetam [Keppra] 750 mg PO BID #30 tab 03/25/20 04/16/20 Rx Allergies Allergy/AdvReac Type Severity Reaction Status Date / Time ceftriaxone Allergy Anaphylaxis Verified 04/16/20 18:11 Penicillins Allergy Rash/Hives Verified 04/16/20 18:11 Physical Exam Vitals: Vital Signs Temp Pulse Pulse Resp BP BP Pulse Ox 04/17/20 08:00 99.2 F 96 16 91/55 04/17/20 03:33 98.2 F 97 20 118/78 98 04/17/20 03:32 110 H 18 04/16/20 23:09 98.4 F 110 H 18 109/74 97 04/16/20 23:04 18 04/16/20 20:00 110 H 18 105/56 100 04/16/20 19:49 98.4 F 18 112/70 98 04/16/20 18:23 112 H 18 113/47 97 04/16/20 17:16 117 H 20 117/48 98 04/16/20 15:07 98.3 F 132 H 18 105/66 93 L Intake and Output 04/16/20 04/17/20 04/17/20 22:59 06:59 14:59 Intake Total 420 Balance 420 Intake: Intake, IV Titration 300 Amount Sodium Chloride 0.9% 1, 300 000 ml @ 75 mls/hr IV . [id number] [facility] Rx#:[id number] Oral 120 Other: # Voids 1 Weight 65.317 kg 72.6 kg Results CBC & Chem 7: 04/17/20 06:44 04/17/20 06:44 Labs: Abnormal Lab Results - Last 24 Hours (Table) 04/16/20 04/16/20 04/16/20 Range/Units 16:17 16:17 16:17 WBC 3.4 L (3.8-10.6) k/uL RBC 2.15 L (3.80-5.40) m/uL Hgb 7.3 L (11.4-16.0) gm/dL Hct 22.2 L (34.0-46.0) % MCV 103.5 H (80.0-100.0) fL RDW 16.4 H (11.5-15.5) % Plt Count 115 L D (150-450) k/uL Lymphocytes # 0.5 L (1.0-4.8) k/uL Macrocytosis PT 14.8 H (9.0-12.0) sec INR 1.5 H (<1.2) APTT 30.3 H (22.0-30.0) sec Sodium 130 L (137-145) mmol/L Potassium 3.3 L (3.5-5.1) mmol/L Chloride 89 L (98-107) mmol/L Glucose 129 H (74-99) mg/dL Plasma Lactic Acid John (0.7-2.0) mmol/L Calcium 7.7 L (8.4-10.2) mg/dL Total Bilirubin 7.4 H (0.2-1.3) mg/dL Conjugated Bilirubin 1.7 H (0.0-0.3) mg/dL Unconjugated Bilirubin 2.4 H (0.0-1.1) mg/dL Delta Bilirubin 3.3 H (0.0-0.2) mg/dL AST 170 H (14-36) U/L Alkaline Phosphatase 429 H (38-126) U/L Ammonia (<30) umol/L Albumin 2.9 L (3.5-5.0) g/dL Serum Alcohol 414 H* mg/dL 04/16/20 04/17/20 04/17/20 Range/Units 16:17 06:44 06:44 WBC 3.5 L (3.8-10.6) k/uL RBC 1.90 L (3.80-5.40) m/uL Hgb 6.5 L* (11.4-16.0) gm/dL Hct 20.2 L (34.0-46.0) % MCV 106.3 H (80.0-100.0) fL RDW 16.6 H (11.5-15.5) % Plt Count 95 L (150-450) k/uL Lymphocytes # 0.5 L (1.0-4.8) k/uL Macrocytosis Marked A PT (9.0-12.0) sec INR (<1.2) APTT (22.0-30.0) sec Sodium 130 L (137-145) mmol/L Potassium (3.5-5.1) mmol/L Chloride 93 L (98-107) mmol/L Glucose 102 H (74-99) mg/dL Plasma Lactic Acid John 2.9 H* (0.7-2.0) mmol/L Calcium 7.2 L (8.4-10.2) mg/dL Total Bilirubin (0.2-1.3) mg/dL Conjugated Bilirubin (0.0-0.3) mg/dL Unconjugated Bilirubin (0.0-1.1) mg/dL Delta Bilirubin (0.0-0.2) mg/dL AST (14-36) U/L Alkaline Phosphatase (38-126) U/L Ammonia 57 H (<30) umol/L Albumin (3.5-5.0) g/dL Serum Alcohol mg/dL Thrombosis Risk Factor Assmnt - Choose All That Apply Each Factor Represents 1 point: Swollen legs (current) Other Risk Factors: No Thrombosis Risk Factor Assessment Total Risk Factor Score: 1 Thrombosis Risk Factor Assessment Level: Low Risk
[2020-04-17] MEDS ORDERED: RIFAXIMIN 550 MG TABLET PO SCH (21:00)
--- NOTE | 2020-04-17 22:58 | P.DS ---
Providers Date of admission: 04/16/20 17:51 Expected date of discharge: 04/17/20 Attending physician: Gonzales Muñiz Consults: 04/16/20 17:34 Consult Physician Urgent Consulting Provider: Pippa Raphael Consult Reason/Comments: ESLD, acute alcohol intoxication, ascites Do you want consulting provider notified?: Yes Primary care physician: [facility] Course: Chief Complaint: Tired Hospital course: This is a 29-year-old patient was a diagnosis of end-stage liver disease secondary to alcoholism. Also history of seizure disorder. Patient's had multiple presentations to the hospital. Also has continued to drink alcohol. 2 admissions ago she was made hospice. But never signed up. She lives with a automation engineer called Donald. Sometimes she will leave the place and go and go with friends drinking. Sometimes she goes to her father's place. She was here a week ago in the ER. I did call [facility] hospice at that time. Has spoken to the patient and Donald. Patient again did not sign up. Again when drinking and went on a binge. She has been followed by Dr. Janee Raphael's office. They also edema appropriate for hospice. Patient yet again presents to the ER feeling weak diet and rundown. Oral intake is going on. Tired rundown. Had a significant alcohol level. Able to carry on a conversation. Again patient's automation engineer Donald at the the bedside. Patient wants some pain medication and Ativan request to go home. Me and Dr. Camargo discussed with the patient. Agreeable into going to hospice. Spoke with Donald. Spoke with the correctional casework specialist. [facility] have been trying to sign of the patient for some time.. Finally decline to sign her today. wind site manager called me to see that [facility] assigned around. Paperwork was done. Patient being discharged. Discussion and discharge planning more than 35 minutes Consultation: Dr. Janee Raphael from GI Physical examination: VITAL SIGNS: 99, 68, 20, 118/58, 95% on 2 L GENERAL: laying in bed, tired awake. EYES: [Pupils equal. Conjunctiva icterus HEENT: External appearance of nose and ears normal, oral cavity grossly normal. NECK: JVD not raised; masses not palpable. HEART: First and second heart sounds are normal; no edema. LUNGS: Respiratory rate normal; clear to auscultation. ABDOMEN: Soft, minimal distention nontender, liver spleen not palpable, no masses palpable. PSYCH: Awake, tired, answering questions appropriately. INVESTIGATIONS, reviewed in the clinical context: White count 3.4 hemoglobin 7.3 platelets 1:15 potassium 3.3 creatinine 0.66 l actic acid 2.9 total bilirubin 7.4 serum alcohol 414 Assessment: -Acute alcohol intoxication -End-stage liver disease/cirrhosis secondary to alcoholism -Alcohol use disorder -Pancytopenia from cirrhosis and alcoholism -Hypoalbuminemia from liver disease -Prolonged pro time from underlying cirrhosis -Hyperbilirubinemia -Hypokalemia -Type II lactic acidosis -Clinically mild ascites Disposition: Home with hospice Patient Condition at Discharge: Poor Plan - Discharge Summary Discharge Rx Participant: No New Discharge Prescriptions: Continue traMADol HCL 50 mg PO BID LORazepam [Ativan] 1 mg PO Q4H PRN 3 Days #15 tab PRN Reason: Anxiety Spironolactone [Aldactone] 25 mg PO DAILY #30 tab Folic Acid 1 mg PO DAILY #30 tab Potassium Chloride ER [K-Dur 20] 20 meq PO DAILY 30 Days #30 tab levETIRAcetam [Keppra] 750 mg PO BID #30 tab Furosemide [Lasix] 40 mg PO DAILY 30 Days #30 tab Magnesium Oxide [Mag-Ox] 400 mg PO BID #30 tab Metoprolol Tartrate 25 mg PO DAILY #30 tab Pantoprazole [Protonix] 40 mg PO DAILY PRN #30 tab PRN Reason: GERD Atomoxetine HCl [Strattera] 25 mg PO DAILY #30 cap Lactulose [Cephulac] 20 gm PO BID #1800 ml Discontinued Multivitamins, Thera [Multivitamin (formulary)] 1 tab PO DAILY Discharge Medication List traMADol HCL 50 mg PO BID 03/23/20 [History] Atomoxetine HCl [Strattera] 25 mg PO DAILY #30 cap 03/25/20 [Rx] Folic Acid 1 mg PO DAILY #30 tab 03/25/20 [Rx] Furosemide [Lasix] 40 mg PO DAILY 30 Days #30 tab 03/25/20 [Rx] LORazepam [Ativan] 1 mg PO Q4H PRN 3 Days #15 tab 03/25/20 [Rx] Lactulose [Cephulac] 20 gm PO BID #1800 ml 03/25/20 [Rx] Magnesium Oxide [Mag-Ox] 400 mg PO BID #30 tab 03/25/20 [Rx] Metoprolol Tartrate 25 mg PO DAILY #30 tab 03/25/20 [Rx] Pantoprazole [Protonix] 40 mg PO DAILY PRN #30 tab 03/25/20 [Rx] Potassium Chloride ER [K-Dur 20] 20 meq PO DAILY 30 Days #30 tab 03/25/20 [Rx] Spironolactone [Aldactone] 25 mg PO DAILY #30 tab 03/25/20 [Rx] levETIRAcetam [Keppra] 750 mg PO BID #30 tab 03/25/20 [Rx] Follow up Appointment(s)/Referral(s): Robert Salazar MD [Primary Care Provider] - 1-2 days Patient Instructions/Handouts: Hospice (DC) Activity/Diet/Wound Care/Special Instructions: Call [facility] [phone] when you get home and they will get in touch with the on-call nurse and she will come see you tonight Discharge Disposition: HOME WITH HOSPICE
== END 2020-04-17 19:39 | disposition hospice, home (50) ==
LOC: EC 15:03 → 3SCARD 17:51
PROVIDERS: ADMIT Hospitalist; ATTEND Hospitalist
DX: K70.31 Alcoholic cirrhosis of liver with ascites (principal); K70.11 Alcoholic hepatitis with ascites; K86.1 Other chronic pancreatitis; K72.90 Hepatic failure, unspecified without coma; F10.129 Alcohol abuse with intoxication, unspecified; Y90.8 Blood alcohol level of 240 mg/100 ml or more; D64.9 Anemia, unspecified; E87.6 Hypokalemia; E87.2 Acidosis; M79.89 Other specified soft tissue disorders; D61.818 Other pancytopenia; D68.9 Coagulation defect, unspecified; K21.9 Gastro-esophageal reflux disease without esophagitis; Z87.01 Personal history of pneumonia (recurrent); G40.909 Epilepsy, unspecified, not intractable, without status epilepticus; Z87.891 Personal history of nicotine dependence; R00.0 Tachycardia, unspecified; E88.09 Other disorders of plasma-protein metabolism, not elsewhere classified; F41.9 Anxiety disorder, unspecified; F32.9 Major depressive disorder, single episode, unspecified; Z98.890 Other specified postprocedural states; Z81.8 Family history of other mental and behavioral disorders; Z79.891 Long term (current) use of opiate analgesic; Z79.899 Other long term (current) drug therapy; Z88.1 Allergy status to other antibiotic agents; Z88.0 Allergy status to penicillin
CPT/HCPCS: 96376 ×2; 96361 ×3; 96372; 96374; 96375; 99285; 93005; 86900; 86901; 80053; 80048; 82140; 82248; 82550; 83605; 83735; 85025 ×2; 85610; 85730; 86850; 86920; 71046; G0378 ×2; P9016; G0480; J2060 ×2; J2765; J3411; 80320

== ENCOUNTER 2020-08-07 19:23 | Observation (INO) | payer OTHER ==
[2020-08-07] MEDS ORDERED: PANTOPRAZOLE 40 MG/10 ML VIAL IVP STA (19:38)
[2020-08-07] MEDS ORDERED: SODIUM CHLORIDE 0.9% 1,000 ML IV STA (19:38)
--- NOTE | 2020-08-07 19:48 | ED ---
General Adult HPI - General Chief complaint: Weakness Stated complaint: weakness Time Seen by Provider: 08/07/20 19:30 Source: patient, EMS Mode of arrival: EMS Limitations: no limitations - History of Present Illness Initial comments: Patient is a 30-year-old female, history of alcohol abuse, liver disease, seizure disorder, presenting to the emergency department via EMS with complaints of generalized weakness, generalized abdominal pain as well as blood coming from her belly button. Patient states she was diagnosed with cold with a few weeks ago, she did have a recent test which came back negative. Patient is just complaining of generalized weakness throughout her body, abdominal pain that she cannot generalized. She has been drinking today, she does appear intoxicated. She denies any headaches, chest pain, shortness of breath. She states she has been coughing up blood occasionally, for the last month. She denies history of bleeding ulcer. She denies any diarrhea, she states she is not . She does have a history of a , no other abdominal surgeries. She has no further complaints at this time. She did receive a total of 8 mg Zofran in the EMS prior to arrival. Her vital signs are stable upon arrival. - Related Data Home Medications Medication Instructions Recorded Confirmed Atomoxetine HCl [Strattera] 60 mg PO DAILY 08/07/20 08/07/20 Dextroamphetamine/Amphetamine 20 mg PO BID 08/07/20 08/07/20 [Adderall] Famotidine 20 mg PO HS 08/07/20 08/07/20 Potassium Chloride ER [K-Dur 10] 20 meq PO DAILY 08/07/20 08/07/20 Thiamine [Vitamin B-1] 100 mg PO DAILY 08/07/20 08/07/20 Trimethobenzamide HCl [Tigan] 300 mg PO BID 08/07/20 08/07/20 Vitamin C/Biotin [Hair, Skin and 1 tab PO DAILY 08/07/20 08/07/20 Nails] levETIRAcetam [Keppra] 1,000 mg PO BID 08/07/20 08/07/20 Previous Rx's Medication Instructions Recorded Folic Acid 1 mg PO DAILY #30 tab 03/25/20 Pantoprazole [Protonix] 40 mg PO DAILY PRN #30 tab 03/25/20 Spironolactone [Aldactone] 25 mg PO DAILY #30 tab 03/25/20 Allergies Allergy/AdvReac Type Severity Reaction Status Date / Time ceftriaxone Allergy Anaphylaxis Verified 08/07/20 21:17 Penicillins Allergy Rash/Hives Verified 08/07/20 21:17 Review of Systems ROS Statement: Those systems with pertinent positive or pertinent negative responses have been documented in the HPI. ROS Other: All systems not noted in ROS Statement are negative. Past Medical History Past Medical History: GERD/Reflux, Liver Disease, Pneumonia, Seizure Disorder Additional Past Medical History / Comment(s): Pt recently admitted to [facility] on 03/09/20 with alcohol abuse/acute hepatic encephalopathy/end stage liver disease/ascitis with paracentesis/thrombocytopenia/hypomagnesemia. Other HX: Last seizure 03/23/20, bronchitis, sepsis in 2013, UTI, cholecystitis, pancytopenia, chronic anemia, pancreatitis History of Any Multi-Drug Resistant Organisms: None Reported Past Surgical History: Section, Orthopedic Surgery Additional Past Surgical History / Comment(s): R ankle surgery d/t fracture, R foot surgery-pt cannot recall cause Past Anesthesia/Blood Transfusion Reactions: No Reported Reaction, Motion Sickness Additional Past Anesthesia/Blood Transfusion Reaction / Comment(s): Pt has received blood in past without reaction. Past Psychological History: ADD/ADHD, Anxiety Smoking Status: Former smoker Past Alcohol Use History: Abuse, Daily, Heavy Past Drug Use History: None Reported - Past Family History Father Family Medical History: No Reported History Additional Family Medical History / Comment(s): anxiety Mother Family Medical History: No Reported History Additional Family Medical History / Comment(s): Mother is healthy General Exam - General Exam Comments Initial Comments: GENERAL: Patient is well-developed and well-nourished. Patient is nontoxic, she appears intoxicated, she is in no acute distress. HEAD: Atraumatic, normocephalic. EYES: Pupils equal round and reactive to light, extraocular movements intact, sclera anicteric, conjunctiva are normal. Eyelids were unremarkable. ENT: TMs normal, nares patent, oropharynx clear without exudates. Moist mucous membranes. NECK: Normal range of motion, supple without lymphadenopathy or JVD. LUNGS: Unlabored respirations. Breath sounds clear to auscultation bilaterally and equal. No wheezes rales or rhonchi. HEART: Regular rate and rhythm without murmurs, rubs or gallops. ABDOMEN: Generalized abdominal pain with palpation, no specific area tenderness. She does have some dried blood on the top of her belly button where she used to have piercings, this appears to be some sort of dermatitis, Soft, normoactive bowel sounds. No guarding, no rebound. No masses appreciated. : Deferred MUSCULOSKELETAL: Normal extremities with adequate strength and normal range of motion, no pitting or edema. No clubbing or cyanosis. NEUROLOGICAL: Patient is alert and oriented x 3. Motor and sensory are also intact. Cranial nerves II through XII grossly intact. Symmetrical smile. Normal speech, normal gait. PSYCH: Normal mood, normal affect. SKIN: Warm, Dry, normal turgor, no rashes or lesions noted. Limitations: no limitations Course Vital Signs 08/07/20 19:25 Temperature 98.3 F Pulse Rate 88 Respiratory 17 Rate Blood Pressure 128/88 O2 Sat by Pulse 97 Oximetry Medical Decision Making - Medical Decision Making Patient is a 30-year-old female with history of alcohol abuse, liver failure, presenting via EMS for vomiting, generalized weakness. She received 8 mg of Zo veena in EMS prior to arrival. Her vital signs are stable. She does appear intoxicated, generalized abdominal discomfort no specific area pain. Patient's hemoglobin is stable at 8.8, liver enzymes are elevated, bilirubin is high, lipase is normal at 209. Urine shows no evidence of infection, urine hCG is not detected. Urine drug screen is positive for benzos. Serum alcohol is 344. Rapid Covid test is positive. Chest x-ray shows no acute process. Patient will be admitted for alcohol intoxication, generalized weakness. [facility] protocol in place. Pt accepted by Dr. Jacob. He is discussed with Dr. Walker. - Lab Data Result diagrams: 08/07/20 20:13 08/07/20 20:13 Lab Results 08/07/20 08/07/20 08/07/20 Range/Units 19:46 19:46 20:13 WBC 3.8 (3.8-10.6) k/uL RBC 3.01 L (3.80-5.40) m/uL Hgb 8.8 L (11.4-16.0) gm/dL Hct 27.3 L (34.0-46.0) % MCV 90.7 (80.0-100.0) fL MCH 29.1 (25.0-35.0) pg MCHC 32.1 (31.0-37.0) g/dL RDW 17.6 H (11.5-15.5) % Plt Count 40 L (150-450) k/uL MPV 9.6 Neutrophils % (Manual) 63 % Band Neuts % (Manual) 1 % Lymphocytes % (Manual) 29 % Monocytes % (Manual) 6 % Basophils % (Manual) 1 % Neutrophils # (Manual) 2.40 (1.3-7.7) k/uL Lymphocytes # (Manual) 1.10 (1.0-4.8) k/uL Monocytes # (Manual) 0.23 (0-1.0) k/uL Basophils # (Manual) 0.04 (0-0.2) k/uL Nucleated RBCs 0 (0-0) /100 WBC Manual Slide Review Performed Hypochromasia Moderate Anisocytosis Slight PT (9.0-12.0) sec INR (<1.2) APTT (22.0-30.0) sec Sodium (137-145) mmol/L Potassium (3.5-5.1) mmol/L Chloride (98-107) mmol/L Carbon Dioxide (22-30) mmol/L Anion Gap mmol/L BUN (7-17) mg/dL Creatinine (0.52-1.04) mg/dL Est GFR (CKD-EPI)AfAm (>60 ml/min/1.73 sqM) Est GFR (CKD-EPI)NonAf (>60 ml/min/1.73 sqM) Glucose (74-99) mg/dL Plasma Lactic Acid John (0.7-2.0) mmol/L Calcium (8.4-10.2) mg/dL Total Bilirubin (0.2-1.3) mg/dL AST (14-36) U/L ALT (4-34) U/L Alkaline Phosphatase (38-126) U/L Total Protein (6.3-8.2) g/dL Albumin (3.5-5.0) g/dL Amylase (30-110) U/L Lipase (23-300) U/L Urine Color Yellow Urine Appearance Clear (Clear) Urine pH 7.0 (5.0-8.0) Ur Specific [place] 1.011 (1.001-1.035) Urine Protein Trace H (Negative) Urine Glucose (UA) Negative (Negative) Urine Ketones Negative (Negative) Urine Blood Trace H (Negative) Urine Nitrite Negative (Negative) Urine Bilirubin 1+ H (Negative) Urine Urobilinogen 4.0 (<2.0) mg/dL Ur Leukocyte Esterase Trace H (Negative) Urine RBC 3 (0-5) /hpf Urine WBC 2 (0-5) /hpf Ur Squamous Epith Cells 5 H (0-4) /hpf Amorphous Sediment Rare H (None) /hpf Urine Mucus Rare H (None) /hpf Urine HCG, Qual Not Detected (Not Detectd) Urine Opiates Screen Not Detected (NotDetected) Ur Oxycodone Screen Not Detected (NotDetected) Urine Methadone Screen Not Detected (NotDetected) Ur Propoxyphene Screen Not Detected (NotDetected) Ur Barbiturates Screen Not Detected (NotDetected) U Tricyclic Antidepress Not Detected (NotDetected) Ur Phencyclidine Scrn Not Detected (NotDetected) Ur Amphetamines Screen Not Detected (NotDetected) U Methamphetamines Scrn Not Detected (NotDetected) U Benzodiazepines Scrn Detected H (NotDetected) Urine Cocaine Screen Not Detected (NotDetected) U Marijuana (THC) Screen Not Detected (NotDetected) Serum Alcohol mg/dL Coronavirus (PCR) (Not Detectd) 08/07/20 08/07/20 08/07/20 Range/Units 20:13 20:13 20:13 WBC (3.8-10.6) k/uL RBC (3.80-5.40) m/uL Hgb (11.4-16.0) gm/dL Hct (34.0-46.0) % MCV (80.0-100.0) fL MCH (25.0-35.0) pg MCHC (31.0-37.0) g/dL RDW (11.5-15.5) % Plt Count (150-450) k/uL MPV Neutrophils % (Manual) % Band Neuts % (Manual) % Lymphocytes % (Manual) % Monocytes % (Manual) % Basophils % (Manual) % Neutrophils # (Manual) (1.3-7.7) k/uL Lymphocytes # (Manual) (1.0-4.8) k/uL Monocytes # (Manual) (0-1.0) k/uL Basophils # (Manual) (0-0.2) k/uL Nucleated RBCs (0-0) /100 WBC Manual Slide Review Hypochromasia Anisocytosis PT 15.3 H (9.0-12.0) sec INR 1.6 H (<1.2) APTT 35.5 H (22.0-30.0) sec Sodium 145 (137-145) mmol/L Potassium 4.5 (3.5-5.1) mmol/L Chloride 111 H (98-107) mmol/L Carbon Dioxide 27 (22-30) mmol/L Anion Gap 7 mmol/L BUN 6 L (7-17) mg/dL Creatinine 0.48 L (0.52-1.04) mg/dL Est GFR (CKD-EPI)AfAm >90 (>60 ml/min/1.73 sqM) Est GFR (CKD-EPI)NonAf >90 (>60 ml/min/1.73 sqM) Glucose 94 (74-99) mg/dL Plasma Lactic Acid John 1.5 (0.7-2.0) mmol/L Calcium 7.8 L (8.4-10.2) mg/dL Total Bilirubin 2.9 H (0.2-1.3) mg/dL AST 218 H (14-36) U/L ALT 45 H (4-34) U/L Alkaline Phosphatase 383 H (38-126) U/L Total Protein 8.4 H (6.3-8.2) g/dL Albumin 3.3 L (3.5-5.0) g/dL Amylase 72 (30-110) U/L Lipase 209 (23-300) U/L Urine Color Urine Appearance (Clear) Urine pH (5.0-8.0) Ur Specific [place] (1.001-1.035) Urine Protein (Negative) Urine Glucose (UA) (Negative) Urine Ketones (Negative) Urine Blood (Negative) Urine Nitrite (Negative) Urine Bilirubin (Negative) Urine Urobilinogen (<2.0) mg/dL Ur Leukocyte Esterase (Negative) Urine RBC (0-5) /hpf Urine WBC (0-5) /hpf Ur Squamous Epith Cells (0-4) /hpf Amorphous Sediment (None) /hpf Urine Mucus (None) /hpf Urine HCG, Qual (Not Detectd) Urine Opiates Screen (NotDetected) Ur Oxycodone Screen (NotDetected) Urine Methadone Screen (NotDetected) Ur Propoxyphene Screen (NotDetected) Ur Barbiturates Screen (NotDetected) U Tricyclic Antidepress (NotDetected) Ur Phencyclidine Scrn (NotDetected) Ur Amphetamines Screen (NotDetected) U Methamphetamines Scrn (NotDetected) U Benzodiazepines Scrn (NotDetected) Urine Cocaine Screen (NotDetected) U Marijuana (THC) Screen (NotDetected) Serum Alcohol 344 H* mg/dL Coronavirus (PCR) (Not Detectd) 08/07/20 Range/Units 21:08 WBC (3.8-10.6) k/uL RBC (3.80-5.40) m/uL Hgb (11.4-16.0) gm/dL Hct (34.0-46.0) % MCV (80.0-100.0) fL MCH (25.0-35.0) pg MCHC (31.0-37.0) g/dL RDW (11.5-15.5) % Plt Count (150-450) k/uL MPV Neutrophils % (Manual) % Band Neuts % (Manual) % Lymphocytes % (Manual) % Monocytes % (Manual) % Basophils % (Manual) % Neutrophils # (Manual) (1.3-7.7) k/uL Lymphocytes # (Manual) (1.0-4.8) k/uL Monocytes # (Manual) (0-1.0) k/uL Basophils # (Manual) (0-0.2) k/uL Nucleated RBCs (0-0) /100 WBC Manual Slide Review Hypochromasia Anisocytosis PT (9.0-12.0) sec INR (<1.2) APTT (22.0-30.0) sec Sodium (137-145) mmol/L Potassium (3.5-5.1) mmol/L Chloride (98-107) mmol/L Carbon Dioxide (22-30) mmol/L Anion Gap mmol/L BUN (7-17) mg/dL Creatinine (0.52-1.04) mg/dL Est GFR (CKD-EPI)AfAm (>60 ml/min/1.73 sqM) Est GFR (CKD-EPI)NonAf (>60 ml/min/1.73 sqM) Glucose (74-99) mg/dL Plasma Lactic Acid John (0.7-2.0) mmol/L Calcium (8.4-10.2) mg/dL Total Bilirubin (0.2-1.3) mg/dL AST (14-36) U/L ALT (4-34) U/L Alkaline Phosphatase (38-126) U/L Total Protein (6.3-8.2) g/dL Albumin (3.5-5.0) g/dL Amylase (30-110) U/L Lipase (23-300) U/L Urine Color Urine Appearance (Clear) Urine pH (5.0-8.0) Ur Specific [place] (1.001-1.035) Urine Protein (Negative) Urine Glucose (UA) (Negative) Urine Ketones (Negative) Urine Blood (Negative) Urine Nitrite (Negative) Urine Bilirubin (Negative) Urine Urobilinogen (<2.0) mg/dL Ur Leukocyte Esterase (Negative) Urine RBC (0-5) /hpf Urine WBC (0-5) /hpf Ur Squamous Epith Cells (0-4) /hpf Amorphous Sediment (None) /hpf Urine Mucus (None) /hpf Urine HCG, Qual (Not Detectd) Urine Opiates Screen (NotDetected) Ur Oxycodone Screen (NotDetected) Urine Methadone Screen (NotDetected) Ur Propoxyphene Screen (NotDetected) Ur Barbiturates Screen (NotDetected) U Tricyclic Antidepress (NotDetected) Ur Phencyclidine Scrn (NotDetected) Ur Amphetamines Screen (NotDetected) U Methamphetamines Scrn (NotDetected) U Benzodiazepines Scrn (NotDetected) Urine Cocaine Screen (NotDetected) U Marijuana (THC) Screen (NotDetected) Serum Alcohol mg/dL Coronavirus (PCR) Detected A (Not Detectd) Disposition Clinical Impression: Weakness, Alcohol intoxication, COVID-19 Disposition: ADMITTED IP TO THIS [facility] Condition: Good Is patient prescribed a controlled substance at d/c from ED?: No Time of Disposition: 21:34 Decision Date: 08/07/20 Decision Time: 21:34
[2020-08-07 19:58] LABS: Amorphous Sediment,Urine Rare /hpf; Appearance,Urine Clear (Clear); Bilirubin,Urine 1+ (Negative); Blood,Urine Trace (Negative); Color,Urine Yellow; Glucose,Urine (UA) Negative (Negative); Ketones,Urine Negative (Negative); Leukocyte Esterase,Urine Trace (Negative); Mucus,Urine Rare /hpf; Nitrite,Urine Negative (Negative); Protein,Urine Trace (Negative); RBC,Urine 3 /hpf (0-5); Specific Gravity,Urine 1.011 (1.001-1.035); Squamous Epithelial Cell,Urine 5 /hpf (0-4); WBC,Urine 2 /hpf (0-5)
[2020-08-07 20:07] LABS: Amphetamine Screen,Urine Not Detected (NotDetected); Barbiturate Screen,Urine Not Detected (NotDetected); Benzodiazepines Screen,Urine Detected (NotDetected); Cocaine Screen,Urine Not Detected (NotDetected); Methadone Screen, Urine Not Detected (NotDetected); Opiate Screen,Urine Not Detected (NotDetected); Oxycodone Screen, Urine Not Detected (NotDetected); Phencyclidine Screen,Urine Not Detected (NotDetected); Tricyclic Antidepressant,Urine Not Detected (NotDetected); Urn Cannabinoid Scrn Not Detected (NotDetected)
--- NOTE | 2020-08-07 20:10 | XR ---
EXAM: XR Chest, 2 Views CLINICAL HISTORY: Cough. Weakness. TECHNIQUE: Frontal and lateral views of the chest. COMPARISON: 04/16/2020. FINDINGS: Lungs: The lungs are well aerated. Pleural space: Unremarkable. No pneumothorax. Heart: Cardiomediastinal silhouette unremarkable. Mediastinum: See above. Bones/joints: The ribs are within normal limits. Alignment of the thoracic spine is within normal limits. Soft tissues: Soft tissues are unremarkable. IMPRESSION: No active disease.
[2020-08-07 20:23] LABS: Anisocytosis Slight; HCT 27.3 % (34.0-46.0); HGB 8.8 gm/dL (11.4-16.0); Hypochromasia Moderate; MCH 29.1 pg (25.0-35.0); MCHC 32.1 g/dL (31.0-37.0); MCV 90.7 fL (80.0-100.0); Mean Platelet Volume 9.6; RBC 3.01 m/uL (3.80-5.40); RDW 17.6 % (11.5-15.5); WBC 3.8 k/uL (3.8-10.6)
[2020-08-07 20:33] LABS: INR 1.6 (<1.2); Partial Thromboplastin Time 35.5 sec (22.0-30.0); Prothrombin Time 15.3 sec (9.0-12.0)
[2020-08-07 20:37] LABS: ALT 45 U/L (4-34); AST 218 U/L (14-36); African American GFR (CKD) >90 (>60 ml/min/1.73 sqM); Albumin 3.3 g/dL (3.5-5.0); Alkaline Phosphatase 383 U/L (38-126); Amylase 72 U/L (30-110); Anion Gap 7 mmol/L; Blood Urea Nitrogen 6 mg/dL (7-17); Calcium 7.8 mg/dL (8.4-10.2); Carbon Dioxide 27 mmol/L (22-30); Chloride 111 mmol/L (98-107); Glucose 94 mg/dL (74-99); Lipase 209 U/L (23-300); Non-African American GFR(CKD) >90 (>60 ml/min/1.73 sqM); Potassium 4.5 mmol/L (3.5-5.1); Sodium 145 mmol/L (137-145); Total Bilirubin 2.9 mg/dL (0.2-1.3); Total Protein 8.4 g/dL (6.3-8.2)
[2020-08-07 20:44] LABS: Platelet Count 40 k/uL (150-450)
[2020-08-07 20:48] LABS: Band Neutrophils % 1 %; Basophils # (M) 0.04 k/uL (0-0.2); Monocytes # (M) 0.23 k/uL (0-1.0); Neutrophils % (M) 63 %; Nucleated Red Blood Cells 0 /100 WBC (0-0); Total Cells Counted 100
[2020-08-07 21:00] LABS: Alcohol 344 mg/dL
[2020-08-07] MEDS ORDERED: NALOXONE 0.4 MG/ML 1 ML VIAL IV PRN (21:28)
[2020-08-07] MEDS ORDERED: LORazepam 2 MG/ML INJ IV PRN ×2 (21:30)
[2020-08-07] MEDS ORDERED: THIAMINE 100 MG/ML 2 ML VIAL IM STA (21:30)
[2020-08-07] MEDS: ONDANSETRON 4 MG/2 ML VIAL IVP PRN (22:51)
[2020-08-07] MEDS: LORazepam 2 MG/ML INJ IV PRN (22:52)
[2020-08-07] MEDS: MORPHINE SULFATE 4 MG/ML SYRINGE IV PRN (22:53)
[2020-08-07] MEDS: TRIMETHOBENZAMIDE 300 MG CAP PO SCH (23:42)
[2020-08-07] MEDS: levETIRAcetam 500 MG TAB PO SCH (23:42)
--- NOTE | 2020-08-08 03:17 | P.HPIM ---
History of Present Illness H&P Date: 08/07/20 Chief Complaint: bleeding, generalized weakness, abd pain 30 year old female with alcohol dependance and abuse, end stage liver disease. patient with frequent hospitalizations for end stage liver disease, and alcohol abuse patient comes in for evaluation due to 1 month history of lower back pain since falling in the parking lot after having a seizure, she lives with a caregiver, Donald, but she makes her own decisions. 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 she decided to get medical care today, due to generalized weakness and ongoing bleeding issues. she claims that she was diagnosed with COVID 19 infection couple weeks ago, her symptoms were mainly GI, she was also having some coughing, loss of smell and taste sensation and some fevers off and on. patient is a poor historian and is not giving clear sequence of events. she also admits to ongoing alcohol abuse without quantifying how much she is drinking, and claims that everytime she tries to quit, something happens and she relapses. she has been having mouth, nose, and umbilical bleeding for about a month now, she is not clear what has been done for this so far. and she does not seem to be impressed or genuinely concerned regarding that, and again she requests pain medications for her lower back , which seems to be her main concern. she denies any associated focal neuro deficits. currently she denies any diarrhea , GI bleeding, nausea or vomiting, fever or chills, active coughing, chest pain or trouble breathing. in the ED, alcohol level was in the 300 range, anemia, throbmocytopenia, endstage liver disease with elevated liver enzymes and prolonged PT/PTT elevated INR Review of Systems Pertinent positives as noted in HPI. All other systems were reviewed and are negative Past Medical History Past Medical History: GERD/Reflux, Liver Disease, Pneumonia, Seizure Disorder Additional Past Medical History / Comment(s): alcohol abuse/acute hepatic encephalopathy/end stage liver disease/ascitis with paracentesis/thrombocytopenia/hypomagnesemia. Other HX: Last seizure , bronchitis, sepsis in 2013, UTI, cholecystitis, pancytopenia, chronic anemia, pancreatitis History of Any Multi-Drug Resistant Organisms: None Reported Past Surgical History: Section, Orthopedic Surgery Additional Past Surgical History / Comment(s): R ankle surgery d/t fracture, R foot surgery-pt cannot recall cause Past Anesthesia/Blood Transfusion Reactions: No Reported Reaction, Motion Sickn ess Additional Past Anesthesia/Blood Transfusion Reaction / Comment(s): Pt has received blood in past without reaction. Past Psychological History: ADD/ADHD, Anxiety Smoking Status: Former smoker Past Alcohol Use History: Abuse, Daily, Heavy Past Drug Use History: None Reported - Past Family History Father Family Medical History: No Reported History Additional Family Medical History / Comment(s): anxiety Mother Family Medical History: No Reported History Additional Family Medical History / Comment(s): Mother is healthy Medications and Allergies Home Medications Medication Instructions Recorded Confirmed Type Folic Acid 1 mg PO DAILY #30 tab 03/25/20 08/07/20 Rx Pantoprazole [Protonix] 40 mg PO DAILY PRN #30 tab 03/25/20 08/07/20 Rx Spironolactone [Aldactone] 25 mg PO DAILY #30 tab 03/25/20 08/07/20 Rx Atomoxetine HCl [Strattera] 60 mg PO DAILY 08/07/20 08/07/20 History Dextroamphetamine/Amphetamine 20 mg PO BID 08/07/20 08/07/20 History [Adderall] Famotidine 20 mg PO HS 08/07/20 08/07/20 History Potassium Chloride ER [K-Dur 10] 20 meq PO DAILY 08/07/20 08/07/20 History Thiamine [Vitamin B-1] 100 mg PO DAILY 08/07/20 08/07/20 History Trimethobenzamide HCl [Tigan] 300 mg PO BID 08/07/20 08/07/20 History Vitamin C/Biotin [Hair, Skin and 1 tab PO DAILY 08/07/20 08/07/20 History Nails] levETIRAcetam [Keppra] 1,000 mg PO BID 08/07/20 08/07/20 History Allergies Allergy/AdvReac Type Severity Reaction Status Date / Time ceftriaxone Allergy Anaphylaxis Verified 08/07/20 21:17 Penicillins Allergy Rash/Hives Verified 08/07/20 21:17 Physical Exam Vitals: Vital Signs Temp Pulse Resp BP Pulse Ox 08/07/20 19:25 98.3 F 88 17 128/88 97 Intake and Output 08/07/20 08/07/20 08/07/20 06:59 14:59 22:59 Other: Weight 71.214 kg Constitutional: No acute distress, conversant, pleasant Eyes: jaundiced sclerae, moist conjunctiva, Pupils equal round reactive to light ENMT: NC/AT, bleeding from her lips, with cracked lips Neck: Supple, FROM, no masses, or JVD No carotid bruits No thyromegaly Lungs: Clear to auscultation Clear to percussion Normal respiratory effort, no accessory muscle use Cardiovascular: Heart regular in rate and rhythm, No murmurs, gallops, or rubs No peripheral edema Abdominal: Soft, bleeding from the umbilical region at site of piercing Nontender, no guarding, rebound or rigidity Abdomen moving with respiration Normoactive bowel sounds hepatomegaly No palpable mass No abdominal wall hernia noted Skin: Normal temperature, tone, texture, turgor No induration No subcutaneous nodules No rash, lesions No ulcers Extremities: No digital cyanosis No clubbing Pedal pulses intact and symmetrical Radial pulses intact and symmetrical No calf tenderness Psychiatric: Alert and oriented to person, place and time flat affect fair judgement Neuro Muscles Strength 4/5 in all 4 extremities Sensation to light touch grossly present throughout Cranial nerves II-XII grossly intact No focal sensory deficits Lymphatics: no palpable cervical or supraclavicular , or inguinal lymph nodes Results CBC & Chem 7: 08/07/20 20:13 08/07/20 20:13 Labs: Abnormal Lab Results - Last 24 Hours (Table) 08/07/20 08/07/20 08/07/20 Range/Units 19:46 20:13 20:13 RBC 3.01 L (3.80-5.40) m/uL Hgb 8.8 L (11.4-16.0) gm/dL Hct 27.3 L (34.0-46.0) % RDW 17.6 H (11.5-15.5) % Plt Count 40 L (150-450) k/uL PT 15.3 H (9.0-12.0) sec INR 1.6 H (<1.2) APTT 35.5 H (22.0-30.0) sec Chloride (98-107) mmol/L BUN (7-17) mg/dL Creatinine (0.52-1.04) mg/dL Calcium (8.4-10.2) mg/dL Total Bilirubin (0.2-1.3) mg/dL AST (14-36) U/L ALT (4-34) U/L Alkaline Phosphatase (38-126) U/L Total Protein (6.3-8.2) g/dL Albumin (3.5-5.0) g/dL Urine Protein Trace H (Negative) Urine Blood Trace H (Negative) Urine Bilirubin 1+ H (Negative) Ur Leukocyte Esterase Trace H (Negative) Ur Squamous Epith Cells 5 H (0-4) /hpf Amorphous Sediment Rare H (None) /hpf Urine Mucus Rare H (None) /hpf U Benzodiazepines Scrn Detected H (NotDetected) Serum Alcohol mg/dL Coronavirus (PCR) (Not Detectd) 08/07/20 08/07/20 Range/Units 20:13 21:08 RBC (3.80-5.40) m/uL Hgb (11.4-16.0) gm/dL Hct (34.0-46.0) % RDW (11.5-15.5) % Plt Count (150-450) k/uL PT (9.0-12.0) sec INR (<1.2) APTT (22.0-30.0) sec Chloride 111 H (98-107) mmol/L BUN 6 L (7-17) mg/dL Creatinine 0.48 L (0.52-1.04) mg/dL Calcium 7.8 L (8.4-10.2) mg/dL Total Bilirubin 2.9 H (0.2-1.3) mg/dL AST 218 H (14-36) U/L ALT 45 H (4-34) U/L Alkaline Phosphatase 383 H (38-126) U/L Total Protein 8.4 H (6.3-8.2) g/dL Albumin 3.3 L (3.5-5.0) g/dL Urine Protein (Negative) Urine Blood (Negative) Urine Bilirubin (Negative) Ur Leukocyte Esterase (Negative) Ur Squamous Epith Cells (0-4) /hpf Amorphous Sediment (None) /hpf Urine Mucus (None) /hpf U Benzodiazepines Scrn (NotDetected) Serum Alcohol 344 H* mg/dL Coronavirus (PCR) Detected A (Not Detectd) Assessment and Plan Assessment: COVID 19 positive end stage liver disease aucte severe alcohol intoxication with alcohol dependance and abuse seizure disorder chronic anemia thrombocytopenia bleeding with elevated INR plan supportive care Fresh frozen plasma X 2 check fibrinogen, d dimer, follow up cbc, cmp, PT/INR resume home meds pain control with opiates monitor vital signs, oxygen requirement alcohol withdrawal precautions thiamine benzo per CIWA scale IVF hydration Preformed a thorough record review from recent hospitalization for alcohol abuse, and end stage liver disease, CODE STATUS:full code DVT prophylaxis: mechanical Discussed with: Patient, ER Anticipated length of stay > than [address]: pending clinical course A total of 75 minutes was spent on the care of this complex patient more than 50% of the time was spent in counseling and care coordination.
[2020-08-08 03:53] LABS: D-Dimer 0.7 mg/L FEU (<0.60)
[2020-08-08 06:47] LABS: Anisocytosis Slight; Basophils % (A) 1 %; Eosinophils % (A) 3 %; HCT 25.1 % (34.0-46.0); HGB 7.7 gm/dL (11.4-16.0); Hypochromasia Marked; Lymphocytes # (A) 0.5 k/uL (1.0-4.8); Lymphocytes % (A) 28 %; MCH 28.5 pg (25.0-35.0); MCHC 30.7 g/dL (31.0-37.0); MCV 92.8 fL (80.0-100.0); Mean Platelet Volume 7.6; Monocytes # (A) 0.1 k/uL (0-1.0); Monocytes % (A) 6 %; Neutrophils % (A) 61 %; RDW 17.5 % (11.5-15.5); WBC 1.6 k/uL (3.8-10.6)
[2020-08-08 06:48] LABS: Platelet Count 25 k/uL (150-450)
[2020-08-08 06:52] LABS: INR 1.7 (<1.2); Partial Thromboplastin Time 37.3 sec (22.0-30.0); Prothrombin Time 16.7 sec (9.0-12.0)
[2020-08-08 07:44] LABS: Poikilocytosis (M) Present; Tear Drop Cells Present
[2020-08-08] MEDS: levETIRAcetam 500 MG TAB PO SCH ×2 (07:57→21:31)
[2020-08-08] MEDS: SPIRONOLACTONE 25 MG TAB PO SCH (07:57)
[2020-08-08] MEDS: THIAMINE 100 MG TAB PO SCH ×2 (07:57→16:24)
[2020-08-08] MEDS: TRIMETHOBENZAMIDE 300 MG CAP PO SCH ×2 (07:57→21:31)
[2020-08-08] MEDS: PANTOPRAZOLE 40 MG/10 ML VIAL IV SCH (07:58)
[2020-08-08] MEDS: NON FORMULARY DRUG (Atomoxetine Hcl [Strattera] 60 MG Capsule) PO SCH (07:58)
[2020-08-08] MEDS: MORPHINE SULFATE 4 MG/ML SYRINGE IV PRN ×2 (08:04→21:32)
[2020-08-08 09:42] LABS: ALT 36 U/L (8-44); AST 141 U/L (13-35); African American GFR (CKD) 150.5 (60.0-200.0); Albumin/Globulin Ratio 0.71 (1.60-3.17); Alkaline Phosphatase 315 U/L (41-126); Blood Urea Nitrogen <5.0 mg/dL (9.0-27.0); Calcium 7.1 mg/dL (8.7-10.3); Carbon Dioxide 27.2 mmol/L (21.6-31.8); Chloride 108 mmol/L (96-109); Globulin 3.8 g/dL (1.6-3.3); Glucose 83 mg/dL (70-110); Non-African American GFR(CKD) 129.9 (60.0-200.0); Potassium 3.8 mmol/L (3.5-5.5); Sodium 140 mmol/L (135-145); Total Bilirubin 2.4 mg/dL (0.2-1.2); Total Protein 6.5 g/dL (6.2-8.2)
[2020-08-08 10:53] LABS: Anisocytosis Slight; Basophils % (A) 1 %; Eosinophils # (A) 0.1 k/uL (0-0.7); Eosinophils % (A) 3 %; HCT 25.7 % (34.0-46.0); Hypochromasia Marked; Lymphocytes # (A) 0.4 k/uL (1.0-4.8); Lymphocytes % (A) 20 %; MCH 28.8 pg (25.0-35.0); Mean Platelet Volume 7.3; Monocytes # (A) 0.1 k/uL (0-1.0); Monocytes % (A) 7 %; Neutrophils # (A) 1.2 k/uL (1.3-7.7); Neutrophils % (A) 68 %; RBC 2.76 m/uL (3.80-5.40); WBC 1.8 k/uL (3.8-10.6)
[2020-08-08 11:02] LABS: Platelet Count 18 k/uL (150-450)
[2020-08-08 11:08] LABS: INR 1.6 (<1.2); Prothrombin Time 15.8 sec (9.0-12.0)
[2020-08-08 11:09] LABS: Partial Thromboplastin Time 35.4 sec (22.0-30.0)
[2020-08-08] MEDS: LORazepam 2 MG/ML INJ IV PRN ×2 (16:24→22:02)
[2020-08-08] MEDS ORDERED: HYDROcodone/APAP 5-325MG 1 EACH TAB PO PRN (17:44)
--- NOTE | 2020-08-08 17:44 | P.PN ---
Subjective Progress Note Date: 08/08/20 (delayed charting seen at 1015) Principal diagnosis: bleeding from abdomen Patient is a 30-year-old female with a history of end-stage liver disease secondary to alcohol dependence, GERD, pneumonia, hepatic encephalopathy, thrombocytopenia who presented to the emergency department secondary to low back pain since falling in a parking lot after having a seizure for one month, generalized weakness, and bleeding from her abdomen. Patient had stated she was diagnosed with coated 19 infection a few weeks ago her symptoms were mainly GI after that time as well from coughing, loss of taste and smell with intermittent fevers. It appears that this is all improved. However she did test positive for Kovic 19 antigen in the emergency department. She was also found to have a hemoglobin of 8.8, platelets 40, INR 1.6, calcium 7.8, bilirubin 2.9, AST 218, ALT 45, alkaline phosphatase 383, albumin 3.3. She was also noted to have bleeding from the umbilicus. Results are made for admission secondary to bleeding and intractable pain. She received 1 unit of FFP second freddy to an INR greater than 1.5 with active bleeding. She was started on CIWA protocol as she has been drinking approximately 1 pint daily but has weaned herself down from half gallon. She reports that she fired her hospice approximately 2 months ago she felt they were not doing much for her. She was noted to have worsening thrombocytopenia on 08/08 and 1 unit of platelets was ordered. Patient seen and examined at bedside. She reports she feels as though she is having alcohol withdrawal and feels anxious and is requesting Ativan. She reports that she has had a steady decline over the last 2 months and she likely needs to resume hospice. She is also complaining of overall pain in 3 different spots. General: Ill-appearing, no distress, appears at stated age Derm: + Jaundice warm, dry, quarter-sized area over the umbilicus with scab in place however continued small amounts of oozing bright red blood. Head: atraumatic, normocephalic, symmetric Eyes: EOMI, no lid lag, + scleral icterus Mouth: no lip lesion, mucus membranes moist Cardiovascular: S1S2 reg, no murmur, positive posterior tibial pulse bilateral, Lungs: CTA bilateral, no rhonchi, no rales , no accessory muscle use Abdominal: soft, distended, nontender to palpation, no guarding, no appreciable organomegaly Ext: no gross muscle atrophy, no edema, no contractures Neuro: CN II-XI grossly intact, no focal neuro deficits Psych: Alert, oriented, appropriate affect Bleeding cutaneous umbilicus lesion -1 unit of platelets, status post 1 unit of FFP, continue with dressing changes -If continues to bleed wound care consult on 08/10 -Repeat CBC in a.m. Alcohol abuse with impending withdrawal -Thiamine, folic acid, CIWA protocol COVID19 - suspect prolonged viral shedding as does not appear symptomatic - supportive care - isolation End-stage liver disease -Resume hospice on discharge. 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 -Supportive care Back pain -Attempt to wean off morphine -Start oral [place] Coagulopathy secondary to underlying liver disease -Status post 1 unit of FFP -Repeat INR in a.m. Seizure disorder - keppra DVT prophylaxis: SCDs Discussed with: Patient, nursing Anticipated discharge: 1-[address]: home with hospice A total of 35minutes was spent on the care of this complex patient more than 50% of the time was spent in counseling and care coordination. Objective - Vital Signs Vital signs: Vital Signs Temp 98.3 F 08/08/20 14:00 Pulse 105 H 08/08/20 14:00 Resp 20 08/08/20 14:00 BP 120/78 08/08/20 14:00 Pulse Ox 92 L 08/08/20 14:00 Intake & Output 08/07/20 08/08/20 08/08/20 18:59 06:59 18:59 Intake Total 0 627 Balance 0 627 Weight 71.214 kg Intake: Blood Product 0 627 Ffp 24 Cpd Unit 0 317 [id number] Other: Voiding Method Toilet Bedside Commode Bedpan Diaper - Labs CBC & Chem 7: 08/08/20 10:37 08/08/20 05:57 Labs: Abnormal Lab Results - Last 24 Hours (Table) 08/07/20 08/07/20 08/07/20 Range/Units 19:46 20:13 20:13 WBC (3.8-10.6) k/uL RBC 3.01 L (3.80-5.40) m/uL Hgb 8.8 L (11.4-16.0) gm/dL Hct 27.3 L (34.0-46.0) % MCHC (31.0-37.0) g/dL RDW 17.6 H (11.5-15.5) % Plt Count 40 L (150-450) k/uL Neutrophils # (1.3-7.7) k/uL Lymphocytes # (1.0-4.8) k/uL PT 15.3 H (9.0-12.0) sec INR 1.6 H (<1.2) APTT 35.5 H (22.0-30.0) sec Fibrinogen (200-500) mg/dL D-Dimer (<0.60) mg/L FEU Chloride (98-107) mmol/L BUN (7-17) mg/dL Creatinine (0.52-1.04) mg/dL Calcium (8.4-10.2) mg/dL Total Bilirubin (0.2-1.3) mg/dL AST (14-36) U/L ALT (4-34) U/L Alkaline Phosphatase (38-126) U/L Total Protein (6.3-8.2) g/dL Albumin (3.5-5.0) g/dL Globulin (1.6-3.3) g/dL Albumin/Globulin Ratio (1.60-3.17) g/dL Urine Protein Trace H (Negative) Urine Blood Trace H (Negative) Urine Bilirubin 1+ H (Negative) Ur Leukocyte Esterase Trace H (Negative) Ur Squamous Epith Cells 5 H (0-4) /hpf Amorphous Sediment Rare H (None) /hpf Urine Mucus Rare H (None) /hpf U Benzodiazepines Scrn Detected H (NotDetected) Serum Alcohol mg/dL Coronavirus (PCR) (Not Detectd) 08/07/20 08/07/20 08/08/20 Range/Units 20:13 21:08 03:12 WBC (3.8-10.6) k/uL RBC (3.80-5.40) m/uL Hgb (11.4-16.0) gm/dL Hct (34.0-46.0) % MCHC (31.0-37.0) g/dL RDW (11.5-15.5) % Plt Count (150-450) k/uL Neutrophils # (1.3-7.7) k/uL Lymphocytes # (1.0-4.8) k/uL PT (9.0-12.0) sec INR (<1.2) APTT (22.0-30.0) sec Fibrinogen 151 L (200-500) mg/dL D-Dimer 0.70 H (<0.60) mg/L FEU Chloride 111 H (98-107) mmol/L BUN 6 L (7-17) mg/dL Creatinine 0.48 L (0.52-1.04) mg/dL Calcium 7.8 L (8.4-10.2) mg/dL Total Bilirubin 2.9 H (0.2-1.3) mg/dL AST 218 H (14-36) U/L ALT 45 H (4-34) U/L Alkaline Phosphatase 383 H (38-126) U/L Total Protein 8.4 H (6.3-8.2) g/dL Albumin 3.3 L (3.5-5.0) g/dL Globulin (1.6-3.3) g/dL Albumin/Globulin Ratio (1.60-3.17) g/dL Urine Protein (Negative) Urine Blood (Negative) Urine Bilirubin (Negative) Ur Leukocyte Esterase (Negative) Ur Squamous Epith Cells (0-4) /hpf Amorphous Sediment (None) /hpf Urine Mucus (None) /hpf U Benzodiazepines Scrn (NotDetected) Serum Alcohol 344 H* mg/dL Coronavirus (PCR) Detected A (Not Detectd) 08/08/20 08/08/20 08/08/20 Range/Units 05:57 05:57 05:57 WBC 1.6 L (3.8-10.6) k/uL RBC 2.70 L (3.80-5.40) m/uL Hgb 7.7 L (11.4-16.0) gm/dL Hct 25.1 L (34.0-46.0) % MCHC 30.7 L (31.0-37.0) g/dL RDW 17.5 H (11.5-15.5) % Plt Count 25 L (150-450) k/uL Neutrophils # 1.0 L (1.3-7.7) k/uL Lymphocytes # 0.5 L (1.0-4.8) k/uL PT 16.7 H (9.0-12.0) sec INR 1.7 H (<1.2) APTT 37.3 H (22.0-30.0) sec Fibrinogen (200-500) mg/dL D-Dimer (<0.60) mg/L FEU Chloride (98-107) mmol/L BUN <5.0 L (7-17) mg/dL Creatinine 0.5 L (0.52-1.04) mg/dL Calcium 7.1 L (8.4-10.2) mg/dL Total Bilirubin 2.4 H (0.2-1.3) mg/dL AST 141 H (14-36) U/L ALT (4-34) U/L Alkaline Phosphatase 315 H (38-126) U/L Total Protein (6.3-8.2) g/dL Albumin 2.70 L (3.5-5.0) g/dL Globulin 3.8 H (1.6-3.3) g/dL Albumin/Globulin Ratio 0.71 L (1.60-3.17) g/dL Urine Protein (Negative) Urine Blood (Negative) Urine Bilirubin (Negative) Ur Leukocyte Esterase (Negative) Ur Squamous Epith Cells (0-4) /hpf Amorphous Sediment (None) /hpf Urine Mucus (None) /hpf U Benzodiazepines Scrn (NotDetected) Serum Alcohol mg/dL Coronavirus (PCR) (Not Detectd) 08/08/20 08/08/20 Range/Units 10:37 10:37 WBC 1.8 L (3.8-10.6) k/uL RBC 2.76 L (3.80-5.40) m/uL Hgb 8.0 L (11.4-16.0) gm/dL Hct 25.7 L (34.0-46.0) % MCHC (31.0-37.0) g/dL RDW 18.0 H (11.5-15.5) % Plt Count 18 L* (150-450) k/uL Neutrophils # 1.2 L (1.3-7.7) k/uL Lymphocytes # 0.4 L (1.0-4.8) k/uL PT 15.8 H (9.0-12.0) sec INR 1.6 H (<1.2) APTT 35.4 H (22.0-30.0) sec Fibrinogen (200-500) mg/dL D-Dimer (<0.60) mg/L FEU Chloride (98-107) mmol/L BUN (7-17) mg/dL Creatinine (0.52-1.04) mg/dL Calcium (8.4-10.2) mg/dL Total Bilirubin (0.2-1.3) mg/dL AST (14-36) U/L ALT (4-34) U/L Alkaline Phosphatase (38-126) U/L Total Protein (6.3-8.2) g/dL Albumin (3.5-5.0) g/dL Globulin (1.6-3.3) g/dL Albumin/Globulin Ratio (1.60-3.17) g/dL Urine Protein (Negative) Urine Blood (Negative) Urine Bilirubin (Negative) Ur Leukocyte Esterase (Negative) Ur Squamous Epith Cells (0-4) /hpf Amorphous Sediment (None) /hpf Urine Mucus (None) /hpf U Benzodiazepines Scrn (NotDetected) Serum Alcohol mg/dL Coronavirus (PCR) (Not Detectd)
[2020-08-08] MEDS ORDERED: FAMOTIDINE 20 MG TAB PO SCH (21:00)
[2020-08-08] MEDS: ONDANSETRON 4 MG/2 ML VIAL IVP PRN (21:32)
[2020-08-09] MEDS: MORPHINE SULFATE 4 MG/ML SYRINGE IV PRN (02:51)
[2020-08-09] MEDS: LORazepam 2 MG/ML INJ IV PRN (02:52)
[2020-08-09] MEDS: NON FORMULARY DRUG (Atomoxetine Hcl [Strattera] 60 MG Capsule) PO SCH (07:46)
[2020-08-09] MEDS: SPIRONOLACTONE 25 MG TAB PO SCH (07:46)
[2020-08-09] MEDS: THIAMINE 100 MG TAB PO SCH ×2 (07:47→16:52)
[2020-08-09] MEDS: PANTOPRAZOLE 40 MG/10 ML VIAL IV SCH (07:47)
[2020-08-09] MEDS: levETIRAcetam 500 MG TAB PO SCH ×2 (07:47→20:30)
[2020-08-09] MEDS: TRIMETHOBENZAMIDE 300 MG CAP PO SCH ×2 (07:47→20:30)
[2020-08-09] MEDS: ONDANSETRON 4 MG/2 ML VIAL IVP PRN ×2 (07:47→14:45)
[2020-08-09 08:59] LABS: Anisocytosis Slight; Basophils % (A) 0 %; Eosinophils % (A) 1 %; HCT 24.1 % (34.0-46.0); HGB 7.8 gm/dL (11.4-16.0); Hypochromasia Slight; Lymphocytes # (A) 0.3 k/uL (1.0-4.8); Lymphocytes % (A) 14 %; MCH 29.5 pg (25.0-35.0); MCHC 32.5 g/dL (31.0-37.0); MCV 90.8 fL (80.0-100.0); Monocytes # (A) 0.2 k/uL (0-1.0); Monocytes % (A) 9 %; Neutrophils # (A) 1.5 k/uL (1.3-7.7); Neutrophils % (A) 73 %; RBC 2.65 m/uL (3.80-5.40); RDW 18.2 % (11.5-15.5)
[2020-08-09] MEDS ORDERED: FOLIC ACID 1 MG TAB PO SCH (09:00)
[2020-08-09 09:06] LABS: Platelet Count 26 k/uL (150-450)
[2020-08-09 12:41] LABS: African American GFR (CKD) 141.8 (60.0-200.0); Albumin 3.2 g/dL (3.80-4.90); Albumin/Globulin Ratio 0.76 (1.60-3.17); Anion Gap 6.4 mmol/L (4.00-12.00); Calcium 8.1 mg/dL (8.7-10.3); Carbon Dioxide 27.6 mmol/L (21.6-31.8); Globulin 4.2 g/dL (1.6-3.3); Non-African American GFR(CKD) 122.3 (60.0-200.0); Potassium 3.8 mmol/L (3.5-5.5); Total Protein 7.4 g/dL (6.2-8.2)
[2020-08-09 13:05] LABS: INR 1.49 (0.90-1.11); Prothrombin Time 15.6 sec (9.9-11.9)
--- NOTE | 2020-08-09 15:26 | P.DS ---
Providers Date of admission: 08/07/20 21:15 Expected date of discharge: 08/09/20 Attending physician: Alannah Jacob MD Primary care physician: Ludivina Doyle Hospital Course: Discharge Diagnosis: Bleeding cutaneous umbilicus lesion Epistaxis Alcohol abuse with impending withdrawal COVID19 End-stage liver disease Pancytopenia secondary to bone marrow suppression from alcoholism Back pain Coagulopathy secondary to underlying liver disease Seizure disorder Hospital Course: Patient is a 30-year-old female with a history of end-stage liver disease secondary to alcohol dependence, GERD, pneumonia, hepatic encephalopathy, thrombocytopenia who presented to the emergency department secondary to low back pain since falling in a parking lot after having a seizure for one month, generalized weakness, and bleeding from her abdomen. Patient had stated she was diagnosed with COVID 19 infection a few weeks ago her symptoms were mainly GI after that time as well from coughing, loss of taste and smell with intermittent fevers. It appears that this is all improved. However she did test positive for Kovic 19 antigen in the emergency department. She was also found to have a hemoglobin of 8.8, platelets 40, INR 1.6, calcium 7.8, bilirubin 2.9, AST 218, ALT 45, alkaline phosphatase 383, albumin 3.3. She was also noted to have bleeding from the umbilicus. Results are made for admission secondary to bleeding and intractable pain. She received 1 unit of FFP secondary to an INR greater than 1.5 with active bleeding. She was started on CIWA protocol as she has been drinking approximately 1 pint daily but has weaned herself down from half gallon. She reports that she fired her hospice approximately 2 months ago she felt they were not doing much for her. She was noted to have worsening thrombocytopenia on 08/08 and 1 unit of platelets was ordered. She states that she has had a steady decline since firing hospice 2 months ago, she would like to sign on with a different hospice. She had a nose bleed the morning of 08/09 and plt still less than 50. Patient was ordered one more unit of plts. She was requesting discharge as her bleeding had improved. She wants to sign on with hospice next week and has a follow-up appointment with her PCP on 08/12. Her request for discharged seemed appropriate as she want to re-enroll in hospice. Patient was given the unit of plt and discharged home in guarded condition to follow with PCP and sign on with hospice. Patient seen and examined at bedside. States has been having intermittent nose bleeds for the last 1 month. Wants to go home. Feeling better. Wants to stop drinking. I explained that I cannot give Rx for ativan due to liver failure and hx of continued drinking. Vital signs reviewed and stable. General: non toxic, no distress, appears at stated age Derm: clotted blood over umbilicus with no additional bleeding, warm, dry Head: atraumatic, normocephalic, symmetric, anterior nasal bleed Eyes: EOMI, no lid lag, anicteric sclera Mouth: no lip lesion, mucus membranes moist Cardiovascular: S1S2 reg, no murmur, positive posterior tibial pulse bilateral, Lungs: CTA bilateral, no rhonchi, no rales , no accessory muscle use Abdominal: soft, nontender to palpation, no guarding, no appreciable organomegaly Ext: no gross muscle atrophy, no edema, no contractures Neuro: CN II-XI grossly intact, no focal neuro deficits Psych: Alert, oriented, appropriate affect A total of 35 minutes of time were spent preparing this complex discharge summary . Patient Condition at Discharge: Serious Plan - Discharge Summary Discharge Rx Participant: Yes New Discharge Prescriptions: New HYDROcodone/APAP 5-325MG [[place] 5-325] 1 each PO Q6HR PRN #12 tab PRN Reason: Pain Continue Spironolactone [Aldactone] 25 mg PO DAILY #30 tab Folic Acid 1 mg PO DAILY #30 tab Pantoprazole [Protonix] 40 mg PO DAILY PRN #30 tab PRN Reason: GERD Trimethobenzamide HCl [Tigan] 300 mg PO BID Potassium Chloride ER [K-Dur 10] 20 meq PO DAILY Famotidine 20 mg PO HS Atomoxetine HCl [Strattera] 60 mg PO DAILY levETIRAcetam [Keppra] 1,000 mg PO BID Vitamin C/Biotin [Hair, Skin and Nails] 1 tab PO DAILY Thiamine [Vitamin B-1] 100 mg PO DAILY Discontinued Dextroamphetamine/Amphetamine [Adderall] 20 mg PO BID Discharge Medication List Folic Acid 1 mg PO DAILY #30 tab 03/25/20 [Rx] Pantoprazole [Protonix] 40 mg PO DAILY PRN #30 tab 03/25/20 [Rx] Spironolactone [Aldactone] 25 mg PO DAILY #30 tab 03/25/20 [Rx] Atomoxetine HCl [Strattera] 60 mg PO DAILY 08/07/20 [History] Famotidine 20 mg PO HS 08/07/20 [History] Potassium Chloride ER [K-Dur 10] 20 meq PO DAILY 08/07/20 [History] Thiamine [Vitamin B-1] 100 mg PO DAILY 08/07/20 [History] Trimethobenzamide HCl [Tigan] 300 mg PO BID 08/07/20 [History] Vitamin C/Biotin [Hair, Skin and Nails] 1 tab PO DAILY 08/07/20 [History] levETIRAcetam [Keppra] 1,000 mg PO BID 08/07/20 [History] HYDROcodone/APAP 5-325MG [[place] 5-325] 1 each PO Q6HR PRN #12 tab 08/09/20 [Rx] Follow up Appointment(s)/Referral(s): Ludivina Doyle DO [Primary Care Provider] - 1-2 days Patient Instructions/Handouts: Cirrhosis (DC), Abuse of Alcohol (DC) Activity/Diet/Wound Care/Special Instructions: Activity: as tolerated Diet: low sodium Special Instructions: Please sing on with hospice Y[facility]I Discharge Disposition: HOME SELF-CARE
[2020-08-09 20:32] VITALS: RESP 16
[2020-08-09 21:16] VITALS: BP 117/80; PULSE 91; TEMP 98.4
== END 2020-08-09 22:00 | disposition home or self-care (01) ==
LOC: EC 19:23 → 4SSUR 21:15
PROVIDERS: ADMIT Internal Medicine; ATTEND Internal Medicine
DX: F10.229 Alcohol dependence with intoxication, unspecified (principal); F10.239 Alcohol dependence with withdrawal, unspecified; Y90.8 Blood alcohol level of 240 mg/100 ml or more; R53.1 Weakness; D68.9 Coagulation defect, unspecified; K72.90 Hepatic failure, unspecified without coma; D61.818 Other pancytopenia; D61.89 Other specified aplastic anemias and other bone marrow failure syndromes; Z86.19 Personal history of other infectious and parasitic diseases; R10.84 Generalized abdominal pain; R19.8 Other specified symptoms and signs involving the digestive system and abdomen; Z98.891 History of uterine scar from previous surgery; R04.2 Hemoptysis; M54.5 Low back pain; K21.9 Gastro-esophageal reflux disease without esophagitis; Z87.01 Personal history of pneumonia (recurrent); G40.909 Epilepsy, unspecified, not intractable, without status epilepticus; Z87.440 Personal history of urinary (tract) infections; D64.9 Anemia, unspecified; F41.9 Anxiety disorder, unspecified; Z87.891 Personal history of nicotine dependence; Z81.8 Family history of other mental and behavioral disorders; D69.6 Thrombocytopenia, unspecified; Z87.19 Personal history of other diseases of the digestive system; Z79.899 Other long term (current) drug therapy; Z88.1 Allergy status to other antibiotic agents; Z88.0 Allergy status to penicillin
CPT/HCPCS: 36430 ×2; 96376 ×2; 96361 ×3; 96375; 96372; 96374; 99285; 36415; 86900; 86901; 85379; 80053 ×3; 82150; 83605; 83690; 85025 ×3; 85384; 85610 ×3; 85730 ×2; 86850; 81001; 81025; 80306; 87635; 71046; G0378 ×3; P9035; P9059; G0480; P9073; J2060 ×3; J2270 ×3; J3411; J2405 ×3; C9113 ×3; 80320

== ENCOUNTER 2020-09-20 18:20 | Inpatient (IN) | payer OTHER ==
[2020-09-20] MEDS ORDERED: SODIUM CHLORIDE 0.9% 500 ML 500 ML IV ONE (18:33)
[2020-09-20] MEDS ORDERED: ONDANSETRON 4 MG/2 ML VIAL IVP STA (18:54)
[2020-09-20] MEDS ORDERED: levETIRAcetam 500 MG TAB PO STA (19:02)
[2020-09-20 19:04] LABS: Appearance,Urine Clear (Clear); Bilirubin,Urine Negative (Negative); Blood,Urine Moderate (Negative); Color,Urine Yellow; Glucose,Urine (UA) Negative (Negative); Ketones,Urine Negative (Negative); Leukocyte Esterase,Urine Negative (Negative); Nitrite,Urine Negative (Negative); Protein,Urine Trace (Negative); RBC,Urine <1 /hpf (0-5); Specific Gravity,Urine 1.003 (1.001-1.035); Urobilinogen,Urine <2.0 mg/dL (<2.0)
[2020-09-20 19:11] LABS: INR 1.3 (<1.2); Partial Thromboplastin Time 30.8 sec (22.0-30.0)
[2020-09-20 19:17] LABS: ALT 41 U/L (4-34); AST 155 U/L (14-36); African American GFR (CKD) >90 (>60 ml/min/1.73 sqM); Albumin 3.8 g/dL (3.5-5.0); Alkaline Phosphatase 347 U/L (38-126); Anion Gap 9 mmol/L; Blood Urea Nitrogen 5 mg/dL (7-17); Calcium 8.1 mg/dL (8.4-10.2); Carbon Dioxide 27 mmol/L (22-30); Chloride 111 mmol/L (98-107); Glucose 107 mg/dL (74-99); Magnesium 1.8 mg/dL (1.6-2.3); Non-African American GFR(CKD) >90 (>60 ml/min/1.73 sqM); Potassium 3.7 mmol/L (3.5-5.1); Sodium 147 mmol/L (137-145); Total Bilirubin 3.2 mg/dL (0.2-1.3); Total Protein 8.8 g/dL (6.3-8.2)
[2020-09-20 19:19] LABS: Anisocytosis Slight; Basophils % (A) 1 %; Eosinophils # (A) 0.1 k/uL (0-0.7); Eosinophils % (A) 2 %; HCT 24.5 % (34.0-46.0); HGB 7.6 gm/dL (11.4-16.0); Hypochromasia Moderate; Lymphocytes # (A) 0.9 k/uL (1.0-4.8); Lymphocytes % (A) 18 %; MCH 30.7 pg (25.0-35.0); MCHC 31.1 g/dL (31.0-37.0); Macrocytosis Slight; Mean Platelet Volume 9.9; Monocytes # (A) 0.4 k/uL (0-1.0); Monocytes % (A) 7 %; Neutrophils # (A) 3.4 k/uL (1.3-7.7); Neutrophils % (A) 69 %; RBC 2.49 m/uL (3.80-5.40); RDW 18.3 % (11.5-15.5); WBC 4.8 k/uL (3.8-10.6)
[2020-09-20 19:20] LABS: MCV 98.5 fL (80.0-100.0)
[2020-09-20 19:21] LABS: Platelet Count 23 k/uL (150-450)
[2020-09-20] MEDS ORDERED: THIAMINE 100 MG/ML 2 ML VIAL IM STA (19:43)
[2020-09-20] MEDS ORDERED: LORazepam 2 MG/ML INJ IV PRN ×2 (19:43)
[2020-09-20 19:45] LABS: Alcohol 406 mg/dL
[2020-09-20] MEDS ORDERED: NALOXONE 0.4 MG/ML 1 ML VIAL IV PRN (19:58)
--- NOTE | 2020-09-20 20:05 | ED ---
General Adult HPI - General Chief complaint: Recheck/Abnormal Lab/Rx Stated complaint: Alcohol/Low Hemoglobin Time Seen by Provider: 09/20/20 18:22 Source: patient, RN notes reviewed, old records reviewed Mode of arrival: ambulatory Limitations: no limitations - History of Present Illness Initial comments: 30-year-old female presented for alcohol intoxication or patient has had issues with alcoholism for many years. She is presenting with chief complaint of nausea, and not feeling well after consuming 1/5 of alcohol. Patient states that earlier in the week she had her hemoglobin checked and was noted to have a hemoglobin of 5 and was transfused one unit. She does have chronic anemia. As well as chronic, cytopenia. She is in liver failure. She had previously been evaluated by [facility] for liver transplant but is not a cand idate secondary to her ongoing alcohol consumption. - Related Data Home Medications Medication Instructions Recorded Confirmed Atomoxetine HCl [Strattera] 60 mg PO DAILY 08/07/20 09/20/20 levETIRAcetam [Keppra] 1,000 mg PO BID 08/07/20 09/20/20 traMADol HCL 50 mg PO Q6H PRN 09/20/20 09/20/20 Previous Rx's Medication Instructions Recorded Folic Acid 1 mg PO DAILY #30 tab 03/25/20 Allergies Allergy/AdvReac Type Severity Reaction Status Date / Time ceftriaxone Allergy Anaphylaxis Verified 09/20/20 19:51 Penicillins Allergy Rash/Hives Verified 09/20/20 19:51 Review of Systems ROS Statement: Those systems with pertinent positive or pertinent negative responses have been documented in the HPI. ROS Other: All systems not noted in ROS Statement are negative. Past Medical History Past Medical History: GERD/Reflux, Liver Disease, Pneumonia, Seizure Disorder Additional Past Medical History / Comment(s): alcohol abuse/acute hepatic encephalopathy/end stage liver disease/ascitis with paracentesis/thrombocytopenia/hypomagnesemia. Other HX: Last seizure , bronchitis, sepsis in 2013, UTI, cholecystitis, pancytopenia, chronic anemia, pancreatitis History of Any Multi-Drug Resistant Organisms: None Reported Past Surgical History: Section, Orthopedic Surgery Additional Past Surgical History / Comment(s): R ankle surgery d/t fracture, R foot surgery-pt cannot recall cause Past Anesthesia/Blood Transfusion Reactions: No Reported Reaction, Motion Sickness Additional Past Anesthesia/Blood Transfusion Reaction / Comment(s): Pt has received blood in past without reaction. Past Psychological History: ADD/ADHD, Anxiety Smoking Status: Former smoker Past Alcohol Use History: Abuse, Daily, Heavy Past Drug Use History: None Reported - Past Family History Father Family Medical History: No Reported History Additional Family Medical History / Comment(s): anxiety Mother Family Medical History: No Reported History Additional Family Medical History / Comment(s): Mother is healthy General Exam Limitations: no limitations General appearance: appears intoxicated Head exam: Present: atraumatic, normocephalic Eye exam: Present: normal appearance, PERRL ENT exam: Present: normal exam Neck exam: Present: normal inspection. Absent: tenderness, meningismus Respiratory exam: Present: normal lung sounds bilaterally. Absent: respiratory distress, wheezes Cardiovascular Exam: Present: normal rhythm, tachycardia GI/Abdominal exam: Present: distended. Absent: tenderness, guarding, rebound Extremities exam: Present: normal capillary refill Neurological exam: Present: alert Psychiatric exam: Present: depressed Skin exam: Present: pallor Course Vital Signs 09/20/20 18:32 Temperature 97.7 F Pulse Rate 98 Respiratory 18 Rate Blood Pressure 136/86 O2 Sat by Pulse 100 Oximetry Medical Decision Making - Medical Decision Making 30-year-old with liver cirrhosis, continued alcohol abuse. Hemoglobin is stable for this patient at 7.6. She was thrombocytopenia with a total platelets of 23. Sodium 148. Bili is 3.2. Alcohol level 407. Case has been discussed with Dr. Graff who will admit. - Lab Data Result diagrams: 09/20/20 18:48 09/20/20 18:48 Lab Results 09/20/20 09/20/20 09/20/20 Range/Units 18:48 18:48 18:48 WBC 4.8 (3.8-10.6) k/uL RBC 2.49 L (3.80-5.40) m/uL Hgb 7.6 L (11.4-16.0) gm/dL Hct 24.5 L (34.0-46.0) % MCV 98.5 D (80.0-100.0) fL MCH 30.7 (25.0-35.0) pg MCHC 31.1 (31.0-37.0) g/dL RDW 18.3 H (11.5-15.5) % Plt Count 23 L (150-450) k/uL MPV 9.9 Neutrophils % 69 % Lymphocytes % 18 % Monocytes % 7 % Eosinophils % 2 % Basophils % 1 % Neutrophils # 3.4 (1.3-7.7) k/uL Lymphocytes # 0.9 L (1.0-4.8) k/uL Monocytes # 0.4 (0-1.0) k/uL Eosinophils # 0.1 (0-0.7) k/uL Basophils # 0.0 (0-0.2) k/uL Hypochromasia Moderate Anisocytosis Slight Macrocytosis Slight PT 13.0 H (9.0-12.0) sec INR 1.3 H (<1.2) APTT 30.8 H (22.0-30.0) sec Sodium (137-145) mmol/L Potassium (3.5-5.1) mmol/L Chloride (98-107) mmol/L Carbon Dioxide (22-30) mmol/L Anion Gap mmol/L BUN (7-17) mg/dL Creatinine (0.52-1.04) mg/dL Est GFR (CKD-EPI)AfAm (>60 ml/min/1.73 sqM) Est GFR (CKD-EPI)NonAf (>60 ml/min/1.73 sqM) Glucose (74-99) mg/dL Calcium (8.4-10.2) mg/dL Magnesium (1.6-2.3) mg/dL Total Bilirubin (0.2-1.3) mg/dL AST (14-36) U/L ALT (4-34) U/L Alkaline Phosphatase (38-126) U/L Total Protein (6.3-8.2) g/dL Albumin (3.5-5.0) g/dL Urine Color Yellow Urine Appearance Clear (Clear) Urine pH 7.0 (5.0-8.0) Ur Specific [place] 1.003 (1.001-1.035) Urine Protein Trace H (Negative) Urine Glucose (UA) Negative (Negative) Urine Ketones Negative (Negative) Urine Blood Moderate H (Negative) Urine Nitrite Negative (Negative) Urine Bilirubin Negative (Negative) Urine Urobilinogen <2.0 (<2.0) mg/dL Ur Leukocyte Esterase Negative (Negative) Urine RBC <1 (0-5) /hpf Urine HCG, Qual (Not Detectd) Serum Alcohol mg/dL 09/20/20 09/20/20 Range/Units 18:48 18:48 WBC (3.8-10.6) k/uL RBC (3.80-5.40) m/uL Hgb (11.4-16.0) gm/dL Hct (34.0-46.0) % MCV (80.0-100.0) fL MCH (25.0-35.0) pg MCHC (31.0-37.0) g/dL RDW (11.5-15.5) % Plt Count (150-450) k/uL MPV Neutrophils % % Lymphocytes % % Monocytes % % Eosinophils % % Basophils % % Neutrophils # (1.3-7.7) k/uL Lymphocytes # (1.0-4.8) k/uL Monocytes # (0-1.0) k/uL Eosinophils # (0-0.7) k/uL Basophils # (0-0.2) k/uL Hypochromasia Anisocytosis Macrocytosis PT (9.0-12.0) sec INR (<1.2) APTT (22.0-30.0) sec Sodium 147 H (137-145) mmol/L Potassium 3.7 (3.5-5.1) mmol/L Chloride 111 H (98-107) mmol/L Carbon Dioxide 27 (22-30) mmol/L Anion Gap 9 mmol/L BUN 5 L (7-17) mg/dL Creatinine 0.47 L (0.52-1.04) mg/dL Est GFR (CKD-EPI)AfAm >90 (>60 ml/min/1.73 sqM) Est GFR (CKD-EPI)NonAf >90 (>60 ml/min/1.73 sqM) Glucose 107 H (74-99) mg/dL Calcium 8.1 L (8.4-10.2) mg/dL Magnesium 1.8 (1.6-2.3) mg/dL Total Bilirubin 3.2 H (0.2-1.3) mg/dL AST 155 H (14-36) U/L ALT 41 H (4-34) U/L Alkaline Phosphatase 347 H (38-126) U/L Total Protein 8.8 H (6.3-8.2) g/dL Albumin 3.8 (3.5-5.0) g/dL Urine Color Urine Appearance (Clear) Urine pH (5.0-8.0) Ur Specific [place] (1.001-1.035) Urine Protein (Negative) Urine Glucose (UA) (Negative) Urine Ketones (Negative) Urine Blood (Negative) Urine Nitrite (Negative) Urine Bilirubin (Negative) Urine Urobilinogen (<2.0) mg/dL Ur Leukocyte Esterase (Negative) Urine RBC (0-5) /hpf Urine HCG, Qual Not Detected (Not Detectd) Serum Alcohol 406 H* mg/dL Disposition Clinical Impression: Ascites, Liver cirrhosis, Chronic anemia, Alcohol intoxication Disposition: ADMITTED IP TO THIS [facility] Condition: Stable Is patient prescribed a controlled substance at d/c from ED?: No Referrals: None,Stated [Primary Care Provider] - 1-2 days Decision to Admit Reason: Admit from [facility] Decision Date: 09/20/20 Decision Time: 20:04
[2020-09-20] MEDS: PANTOPRAZOLE 40 MG/10 ML VIAL IVP SCH (20:06)
[2020-09-20] MEDS: SODIUM CHLORIDE 0.9% 1,000 ML IV SCH (20:06)
--- NOTE | 2020-09-20 22:17 | HP ---
HISTORY AND PHYSICAL DATE IS SERVICE: 09/20/2020. CHIEF COMPLAINT: Low hemoglobin and alcohol intoxication, change in mental status and possible bleeding. HISTORY OF PRESENT ILLNESS: This 30-year-old woman with a past medical history of multiple medical problems including GERD, chronic liver disease, seizure disorder, history of alcohol abuse, hepatic encephalopathy, ADHD, anxiety, not being followed by any primary physician in the outpatient setting, was admitted with change in mental status, some bleeding and as well as significant alcohol intake also. The patient apparently was in [facility] previously, but right now the patient is not following up obviously. The patient is also having significant alcohol issues. The patient admitted for further evaluation. Hemoglobin is found to be 7.6, platelets 23. The patient also had multiple hematology and electrolytes abnormalities previously. There is no history of fever, rigors. No history of headache, loss of consciousness, seizures at this time. PAST MEDICAL HISTORY: Chronic liver disease, history of GERD, history of EtOH, seizure disorder, history of ADD/ADHD, anxiety. MEDICATIONS: Medications prior to admission home medications are: Keppra, vitamin B complex, Tigan, vitamin B1, Aldactone, K-Dur, Protonix, Tyro, folic acid, famotidine, compliance unknown. ALLERGIES: ROCEPHIN AND PENICILLIN. FAMILY HISTORY: Per chart, history of anxiety in the family. SOCIAL HISTORY: History of alcohol, previous history of smoker. REVIEW OF SYSTEMS: ENT: No diminished hearing. No diminished vision. CARDIOVASCULAR: No angina. RESPIRATION as mentioned earlier. GI: As mentioned earlier. : No dysuria. NERVOUS SYSTEM: No numbness, weakness. ALLERGY/IMMUNOLOGY: No asthma, hay fever. MUSCULOSKELETAL: As mentioned earlier. HEMATOLOGY/ONCOLOGY: As mentioned earlier. ENDOCRINE: No history of diabetes or hypothyroidism. CONSTITUTIONAL: As mentioned earlier. DERMATOLOGY: Negative. RHEUMATOLOGY: Negative. PSYCHIATRY: As mentioned earlier. PHYSICAL EXAMINATION: Alert and oriented x3. The pulse is 98. Blood pressure 136/80. Respirations 18, temperature 97.7. Pulse ox 100 percent on room air. HEENT is conjunctivae pale. NECK: No JVD. RESPIRATORY SYSTEM: Breath sounds diminished at the bases. No rhonchi. No crackles. ABDOMEN: Soft, obese, nontender. No mass palpable. Striae present. LEGS: No edema. No swelling. NERVOUS SYSTEM: Higher functions as mentioned earlier. Moves all four limbs. No focal motor or sensory deficits. Minimal hepatic flap present. LYMPHATICS: No lymph nodes palpable in the neck, axillae or groin. SKIN: No ulcer, no rash and no bleeding. JOINTS: No active deforming arthropathy. LABS: WBC 4.3, hemoglobin 7. Other labs are pending. ASSESSMENT: 1. Possibly acute gastrointestinal bleed with acute blood loss anemia, acute on chronic. 2. Epistaxis. 3. Possible alcoholic intoxication hepatic encephalopathy. 4. Chronic liver disease secondary to alcohol. 5. Severe thrombocytopenia secondary to EtOH. 6. History of gastroesophageal reflux disease. 7. History of pneumonia. 8. History of seizure disorder. 9. History of alcoholic hepatic encephalopathy. 10.History of hypomagnesemia. 11.History attention-deficit disorder, attention-deficit/hyperactivity disorder. 12.History of anxiety. 13.History of noncompliance. RECOMMENDATIONS AND DISCUSSION: This 30-year-old woman who presented with multiple complex medical issues, we will monitor the patient closely, continue the current medications, management and symptomatic treatment. Otherwise monitor hemoglobin closely. Repeat labs. We will obtain gastroenterology consultation. Otherwise, we will closely follow. CIWA protocol. Prognosis guarded because of multiple complex medical issues. Further recommendations to follow. 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 Ensure compliance. MMODL / IJN: [id number] / MTDD
[2020-09-21] MEDS: LORazepam 2 MG/ML INJ IV PRN ×3 (08:01→19:22)
[2020-09-21] MEDS: ONDANSETRON 4 MG/2 ML VIAL IVP PRN ×2 (09:25→19:26)
[2020-09-21] MEDS: levETIRAcetam 500 MG TAB PO SCH ×2 (09:25→20:15)
[2020-09-21] MEDS: PANTOPRAZOLE 40 MG/10 ML VIAL IVP SCH ×2 (09:26→20:15)
[2020-09-21 09:53] LABS: Albumin/Globulin Ratio 0.86 (1.60-3.17); Anion Gap 6.9 mmol/L (4.00-12.00); BUN/Creat Ratio 12.5 Ratio (12.00-20.00); Calcium 7.2 mg/dL (8.7-10.3); Carbon Dioxide 27.1 mmol/L (21.6-31.8); Globulin 3.5 g/dL (1.6-3.3); Magnesium 1.5 mg/dL (1.5-2.4); Non-African American GFR(CKD) 139.8 (60.0-200.0); Potassium 3.2 mmol/L (3.5-5.5); Total Bilirubin 2.7 mg/dL (0.2-1.2); Total Protein 6.5 g/dL (6.2-8.2)
[2020-09-21 11:29] LABS: Anisocytosis (M) 2+; Basophils # (A) 0.02 X 10*3/uL (0.00-0.10); Eosinophils # (A) 0.04 X 10*3/uL (0.04-0.35); Eosinophils % (A) 2.1 %; Lymphocytes # (A) 0.56 X 10*3/uL (0.90-5.00); Lymphocytes % (A) 29.3 %; MCH 30.5 pg (27.0-32.0); MCHC 30.3 g/dL (32.0-37.0); MCV 100.5 fL (80.0-97.0); Macrocytosis (M) 2+; Mean Platelet Volume 12.6 fL (9.5-12.2); Monocytes # (A) 0.22 X 10*3/uL (0.20-1.00); Monocytes % (A) 11.5 %; Neutrophils # (A) 1.05 X 10*3/uL (1.80-7.70); Neutrophils % (A) 55.1 %; RBC 1.97 X 10*6/uL (4.10-5.20); RDW 18.2 % (11.5-14.5); WBC 1.91 X 10*3/uL (4.50-10.00)
[2020-09-21] MEDS ORDERED: FUROSEMIDE 10 MG/ML 2 ML VIAL IV ONE (14:17)
--- NOTE | 2020-09-21 14:59 | PN ---
PROGRESS NOTE DATE OF SERVICE: 09/21/2020 This 30-year-old woman was admitted with alcoholic intoxication, hepatic encephalopathy, multiple medical problems, also had hemoglobin of 6, indicating acute gastrointestinal bleeding. The platelets were 16. The patient alcohol was 406 on admission. The patient is being recommend one unit transfusion. Patient will be closely monitored at this time. PAST MEDICAL HISTORY: Reviewed. REVIEW OF SYSTEMS: CARDIOVASCULAR SYSTEM: No angina. RESPIRATORY SYSTEM: As mentioned earlier. GI: As mentioned earlier. : No dysuria. NERVOUS SYSTEM: No numbness or weakness. CURRENT MEDICATIONS: Current medications are reviewed and include folic acid, Cephulac, Keppra, Protonix, Ultram. PHYSICAL EXAMINATION: The patient is alert and oriented x3. Pulse is 107, blood pressure 129/80, respiration 18, temperature 98 degrees, pulse ox 97% on room air. HEENT: Conjunctivae normal. NECK: No jugular venous distention. CARDIOVASCULAR: S1, S2 muffled. RESPIRATORY: Breath sounds diminished at the bases. A few scattered rhonchi and crackles. ABDOMEN: Soft, nontender. No mass palpable. LEGS: No edema. No swelling. NERVOUS SYSTEM: Diffusely weak. LABS: WBC 1.91 and hemoglobin is 6 and platelets 16. Other labs are noted. Bilirubin is 2.7. ASSESSMENT: 1. Acute gastrointestinal bleed with acute blood loss anemia possibly acute on chronic anemia possibly secondary to esophageal varices. Rule out peptic ulcer disease. 2. Epistaxis, apparently. 3. Alcohol intoxication with hepatic encephalopathy. 4. Chronic liver disease secondary to alcohol. 5. History of severe thrombocytopenia secondary to EtOH. 6. Gastroesophageal reflux disease. 7. Pneumonia. 8. Seizure disorder. 9. History of alcoholic hepatic encephalopathy. 10.History of hypomagnesemia. 11.Attention deficit disorder, attention deficit hyperactivity disorder. 12.History of anxiety. 13.History of noncompliance. 14.Hypokalemia. RECOMMENDATIONS AND DISCUSSION: I recommend to continue current medications. Continue symptomatic treatment. Recommend 2 units of transfusion. Obtain potassium. Otherwise monitor electrolytes closely. Gastroenterology evaluation. Lasix in between transfusions. Prognosis guarded. Further recommendations to follow. MMODL / IJN: [id number] /
[2020-09-21] MEDS: LACTULOSE 20 GM/30 ML CUP PO SCH ×2 (16:55→20:15)
[2020-09-21 17:39] LABS: HCT 19.8 % (37.2-46.3); Platelet Count 16 X 10*3/uL (140-440)
[2020-09-21] MEDS: SODIUM CHLORIDE 0.9% 1,000 ML IV SCH (20:16)
[2020-09-21] MEDS: traMADol 50 MG TAB PO PRN (20:22)
[2020-09-21 23:28] LABS: Anisocytosis Slight; Basophils % (A) 1 %; Eosinophils % (A) 2 %; HCT 25.7 % (34.0-46.0); HGB 8.6 gm/dL (11.4-16.0); Hypochromasia Slight; Lymphocytes # (A) 0.4 k/uL (1.0-4.8); Lymphocytes % (A) 14 %; MCH 31.6 pg (25.0-35.0); MCHC 33.6 g/dL (31.0-37.0); Monocytes # (A) 0.2 k/uL (0-1.0); Monocytes % (A) 9 %; Neutrophils % (A) 74 %; Poikilocytosis Slight; RBC 2.73 m/uL (3.80-5.40); RDW 17.3 % (11.5-15.5); WBC 2.7 k/uL (3.8-10.6)
[2020-09-22 00:37] LABS: Platelet Count 20 k/uL (150-450)
[2020-09-22 00:38] LABS: Reticulocyte % 1.5 % (0.5-2.0)
[2020-09-22] MEDS: ONDANSETRON 4 MG/2 ML VIAL IVP PRN ×3 (02:08→20:47)
[2020-09-22] MEDS: LORazepam 2 MG/ML INJ IV PRN ×4 (02:08→20:47)
[2020-09-22] MEDS ORDERED: Potassium Replacement Protocol 1 EACH MISC MISCELLANE PRN (04:16)
[2020-09-22] MEDS: POTASSIUM CHLORIDE ER 20 MEQ TAB.ER PO SCH ×2 (04:37→05:07)
[2020-09-22] MEDS: Atomoxetine Hcl [Strattera] 60 MG Capsule PO SCH (08:05)
[2020-09-22] MEDS: LACTULOSE 20 GM/30 ML CUP PO SCH ×3 (08:06→20:47)
[2020-09-22] MEDS: FOLIC ACID 1 MG TAB PO SCH (08:06)
[2020-09-22] MEDS: PANTOPRAZOLE 40 MG/10 ML VIAL IVP SCH ×2 (08:11→20:47)
[2020-09-22] MEDS: levETIRAcetam 500 MG TAB PO SCH ×2 (08:12→20:47)
[2020-09-22 09:46] LABS: African American GFR (CKD) 141.8 (60.0-200.0); Albumin 3.3 g/dL (3.80-4.90); Albumin/Globulin Ratio 0.87 (1.60-3.17); Anion Gap 7.5 mmol/L (4.00-12.00); Calcium 7.8 mg/dL (8.7-10.3); Carbon Dioxide 25.5 mmol/L (21.6-31.8); Globulin 3.8 g/dL (1.6-3.3); Non-African American GFR(CKD) 122.3 (60.0-200.0); Potassium 3.1 mmol/L (3.5-5.5); Total Bilirubin 6.2 mg/dL (0.2-1.2); Total Protein 7.1 g/dL (6.2-8.2)
[2020-09-22 10:52] LABS: Basophils # (A) 0.02 X 10*3/uL (0.00-0.10); Basophils % (A) 0.5 %; Eosinophils # (A) 0.01 X 10*3/uL (0.04-0.35); Eosinophils % (A) 0.3 %; HCT 25.5 % (37.2-46.3); HGB 8.2 g/dL (12.0-15.0); Lymphocytes # (A) 0.15 X 10*3/uL (0.90-5.00); Lymphocytes % (A) 3.8 %; MCH 30.8 pg (27.0-32.0); MCHC 32.2 g/dL (32.0-37.0); MCV 95.9 fL (80.0-97.0); Monocytes # (A) 0.47 X 10*3/uL (0.20-1.00); Monocytes % (A) 11.8 %; Neutrophils # (A) 3.34 X 10*3/uL (1.80-7.70); Neutrophils % (A) 83.3 %; Platelet Count 21 X 10*3/uL (140-440); RBC 2.66 X 10*6/uL (4.10-5.20); RDW 18.3 % (11.5-14.5)
[2020-09-22 10:55] LABS: Folate, Serum 9.7 ng/mL
[2020-09-22 11:02] LABS: % Iron Saturation 48.48 (12.00-45.00); Ferritin 11.3 ng/mL (10.0-291.0)
[2020-09-22] MEDS: SODIUM CHLORIDE 0.9% 1,000 ML IV SCH (11:02)
[2020-09-22] MEDS ORDERED: POTASSIUM CHLORIDE ER 20 MEQ TAB.ER PO STA ×2 (11:10→14:59)
[2020-09-22 11:37] LABS: Glucose,Whole Blood 103 mg/dL (75-99)
[2020-09-22] MEDS ORDERED: PROPOFOL 10 MG/ML 20 ML VIAL IV ONE (11:44)
[2020-09-22] MEDS ORDERED: LIDOCAINE 1% INJ 10MG/ML (20 ML MDV) ONE (11:44)
[2020-09-22] MEDS ORDERED: IV FLUID CONTINUATION 1,000 ML IV ONE ×2 (11:46)
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
--- NOTE | 2020-09-22 12:57 | P.PCN ---
Date of Procedure: 09/22/20 Description of Procedure: BRIEF HISTORY: 30-year-old female with a medical history significant for alcohol abuse with multiple admissions for alcoholic hepatitis with ascites noncompliance who presented to the hospital for treatment of alcohol intoxication and nausea. The patient has been treated for decompensated liver disease with encephalopathy and ascites in the past. She has never reported signs or symptoms of GI bleeding and has had anemia likely related to her chronic alcohol use. On her presentation she reports that after a period of sobriety she again has been drinking daily alcohol approximately 1 pint per day over the past few months. Currently she is not taking any medications in the outpatient setting following up with any physicians. Laboratory evaluation on presentation significant for alcohol level of 406, INR 1.3, hemoglobin 7.6, platelet count 23,000, total bilirubin 3.2, alkaline phosphatase 347, AST 155 and ALT 41. No prior endoscopies in the past. She does report nausea is stating with no hematemesis. She does report intermittent bright red blood per rectum mainly with straining and constipation and noted this 2 days ago. PROCEDURE PERFORMED: Esophagogastroduodenoscopy. PREOPERATIVE DIAGNOSIS: Anemia, pancytopenia, blood per rectum. ESTIMATED BLOOD LOSS: Minimal. IV sedation per anesthesia. PROCEDURE: After informed consent was obtained, the patient was brought into the endoscopy unit. IV sedation was administered by Anesthesia under continuous monitoring. Initially the Olympus GIF-190 video endoscope was inserted into the mouth. Esophagus intubated without any difficulty. It was gradually advanced into the stomach and duodenum and carefully examined. The bulb and the second part of the duodenum appeared normal. The scope at this time was withdrawn to the stomach, adequately insufflated with air, and upon careful examination, mucosa of the antrum, body, cardia and the fundus appeared normal, except for diffuse punctate erythema consistent with moderate portal hypertensive gastropathy. The scope was then withdrawn into the esophagus. The GE junction was located at 39 cm from the incisors. The esophagus appeared normal, with no evidence of varices. There were no erosions or ulcerations seen and the patient tolerated the procedure well. Biopsies were taken in the setting of thrombocytopenia. IMPRESSION: 1. Moderate portal hypertensive gastropathy. 2. No active bleeding or old blood noted on EGD. RECOMMENDATIONS: The findings of this examination were discussed with the patient. Okay to resume sodium restricted diet. Continue monitor CBC, BMP and LFTs. Alcohol abstinence, continue to monitor for alcohol withdrawal and treat. Continue lactulose therapy. Continue Protonix. Okay for sodium restricted diet as tolerated.
[2020-09-22] MEDS: traMADol 50 MG TAB PO PRN (15:13)
[2020-09-22] MEDS ORDERED: LEVOFLOXACIN 500MG-D5W PMX 500 MG in DEXTROSE/WATER 1 100ML.BAG IVPB SCH (22:00)
--- NOTE | 2020-09-22 22:37 | P.PN ---
Subjective This is a pleasant 30 years old female with multiple medical problems including hepatic liver disease, seizure disorder, gastroesophageal reflux disease, alcohol abuse, previous history of hepatic encephalopathy, end-stage liver disease and ascites with previous paracentesis, thrombocytopenia, hypomagnesemia. She presents on nausea and on feeling well. She has worsening pancytopenia since 01/2020, she received 1 unit of blood transfusion recently for hemoglobin of 5 as per documentation. She has advanced alcoholic liver disease but She is not a candidate for liver transplant due to her ongoing alcohol consumption and abuse On admission her hemoglobin dropped to 6.0 and she received 2 units of blood transfusion and her hemoglobin went up to 8.2 today. Her WBCs slightly improved to 4.0K and she has low platelets 16-21K. Anemia workup showing anemia of chronic disease, B12 and folate are deficient. Reticulocyte count is 1.5%. P june underwent EGD today by GI team showing moderate portal hypertensive gastropathy with no active bleeding. This morning also she developed low-grade temperature of 100.3. Will order blood culture, proteincalcitonin, abdominal ultrasound and infectious disease consult. Also will check EKG in the morning Review of systems CONSTITUTIONAL: No fever, no malaise, no fatigue. HEENT: No recent visual problems or hearing problems. Denied any sore throat. CARDIOVASCULAR: No orthopnea, PND, no palpitations, no syncope. PULMONARY: No shortness of breath, no cough, no hemoptysis. GASTROINTESTINAL: No diarrhea, no nausea, no vomiting, no abdominal pain. Normoactive bowel sounds. NEUROLOGICAL: No headaches, no weakness, no numbness. Active Medications Generic Name Dose Route Start Last Admin Trade Name Bethany PRN Reason Stop Dose Admin Folic Acid 1 mg 09/22/20 09:00 09/22/20 08:06 Folic Acid 1 Mg Tab PO Not Given DAILY CE Sodium Chloride 1,000 mls @ 50 mls/hr 09/20/20 20:00 09/22/20 11:02 Saline 0.9% IV 50 mls/hr .Q20H CE Administration Lactulose 30 gm 09/21/20 16:00 09/22/20 20:47 Lactulose 20 Gm/30 Ml Cup PO 30 gm TID CE Administration Levetiracetam 1,000 mg 09/21/20 09:00 09/22/20 20:47 Levetiracetam 500 Mg Tab PO 1,000 mg BID CE Administration Lorazepam 1 mg 09/20/20 19:43 09/22/20 20:47 Lorazepam 2 Mg/Ml Inj IV 1 mg Q2HR PRN Administration CIWA 8 or 9 Lorazepam 1 mg 09/20/20 19:43 Lorazepam 2 Mg/Ml Inj IV Q1HR PRN CIWA 10 to 15 Miscellaneous Information 1 each 09/22/20 04:16 Potassium Replacement Protocol 1 Each Misc MISCELLANE DAILY PRN Per Protocol Protocol Naloxone HCl 0.2 mg 09/20/20 19:58 Naloxone 0.4 Mg/Ml 1 Ml Vial IV Q2M PRN Opioid Reversal Atomoxetine Hcl [ 60 mg 09/22/20 09:00 09/22/20 08:05 Strattera] 60 Mg PO Not Given Capsule DAILY CE Ondansetron HCl 4 mg 09/21/20 08:19 09/22/20 20:47 Ondansetron 4 Mg/2 Ml Vial IVP 4 mg Q6HR PRN Administration Nausea And Vomiting Pantoprazole Sodium 40 mg 09/23/20 09:00 Pantoprazole 40 Mg/10 Ml Vial IVP DAILY [facility] Tramadol HCl 50 mg 09/21/20 10:22 09/22/20 15:13 Tramadol 50 Mg Tab PO 50 mg Q6H PRN Administration Pain Objective - Vital Signs Vital signs: Vital Signs Temp 98.9 F 09/22/20 14:00 Pulse 119 H 09/22/20 14:00 Resp 16 09/22/20 14:00 BP 128/76 09/22/20 14:00 Pulse Ox 98 09/22/20 14:00 Intake & Output 09/21/20 09/22/20 09/22/20 18:59 06:59 18:59 Intake Total 860 276 250 Output Total 400 Balance 860 -124 250 Intake: IV 250 Intake, IV Titration 300 Amount Sodium Chloride 0.9% 1, 300 000 ml @ 50 mls/hr IV . Q20H [facility] Rx#:[id number] Oral 250 Blood Product 310 276 Rc As-1 Unit 310 [id number] Rc Pheresis As-3 Unit 0 276 [id number] Output: Urine 400 Other: # Voids 3 4 2 # Bowel Movements 5 - Exam -GENERAL: The patient is alert and oriented x3, mild drowsiness, not in any acute distress. Well developed, well nourished. HEENT: Pupils are round and equally reacting to light. EOMI. No scleral icterus. No conjunctival pallor. Normocephalic, atraumatic. No pharyngeal erythema. No thyromegaly. CARDIOVASCULAR: S1 and S2 present. No murmurs, rubs, or gallops. PULMONARY: Chest is clear to auscultation, no wheezing or crackles. ABDOMEN: Soft, nontender, nondistended, normoactive bowel sounds. No palpable organomegaly. MUSCULOSKELETAL: No joint swelling or deformity. EXTREMITIES: No cyanosis, clubbing, or pedal edema. NEUROLOGICAL: Gross neurological examination did not reveal any focal deficits. SKIN: No rashes. no petechiae. - Labs CBC & Chem 7: 09/22/20 05:43 09/22/20 14:14 Labs: Abnormal Lab Results - Last 24 Hours (Table) 09/21/20 09/21/20 09/21/20 Range/Units 05:14 12:18 23:00 WBC 2.7 L (3.8-10.6) k/uL RBC 2.73 L (3.80-5.40) m/uL Hgb 6.0 L* 8.6 L (12.0-15.0) g/dL Hct 19.8 L* 25.7 L (37.2-46.3) % RDW 17.3 H (11.5-15.5) % Plt Count 16 L* 20 L (140-440) X 10*3/uL Plt Count Comment Lymphocytes # 0.4 L (1.0-4.8) k/uL Eosinophils # (0.04-0.35) X 10*3/uL Immature Plt Fraction (1.1-6.1) % Sodium (135-145) mmol/L Potassium (3.5-5.5) mmol/L BUN (9.0-27.0) mg/dL BUN/Creatinine Ratio (12.00-20.00) Ratio Glucose (70-110) mg/dL POC Glucose (mg/dL) (75-99) mg/dL Calcium (8.7-10.3) mg/dL % Saturation (12.00-45.00) Total Bilirubin (0.2-1.2) mg/dL AST (13-35) U/L Alkaline Phosphatase (41-126) U/L Ammonia (<30) umol/L Albumin (3.80-4.90) g/dL Globulin (1.6-3.3) g/dL Albumin/Globulin Ratio (1.60-3.17) g/dL Vitamin B12 (200.0-944.0) pg/mL Crossmatch See Detail 09/21/20 09/22/20 09/22/20 Range/Units 23:00 05:43 05:43 WBC 4.00 L (3.8-10.6) k/uL RBC 2.66 L (3.80-5.40) m/uL Hgb 8.2 L (12.0-15.0) g/dL Hct 25.5 L (37.2-46.3) % RDW 18.3 H (11.5-15.5) % Plt Count 21 L (140-440) X 10*3/uL Plt Count Comment DECREASED A Lymphocytes # 0.15 L (1.0-4.8) k/uL Eosinophils # 0.01 L (0.04-0.35) X 10*3/uL Immature Plt Fraction 9.8 H (1.1-6.1) % Sodium 134 L (135-145) mmol/L Potassium 3.1 L (3.5-5.5) mmol/L BUN 6.0 L (9.0-27.0) mg/dL BUN/Creatinine Ratio 10.00 L (12.00-20.00) Ratio Glucose 115 H (70-110) mg/dL POC Glucose (mg/dL) (75-99) mg/dL Calcium 7.8 L (8.7-10.3) mg/dL % Saturation 48.48 H (12.00-45.00) Total Bilirubin 6.2 H (0.2-1.2) mg/dL AST 95 H (13-35) U/L Alkaline Phosphatase 205 H (41-126) U/L Ammonia (<30) umol/L Albumin 3.30 L (3.80-4.90) g/dL Globulin 3.8 H (1.6-3.3) g/dL Albumin/Globulin Ratio 0.87 L (1.60-3.17) g/dL Vitamin B12 1442.0 H (200.0-944.0) pg/mL Crossmatch 09/22/20 09/22/20 Range/Units 05:43 11:35 WBC (3.8-10.6) k/uL RBC (3.80-5.40) m/uL Hgb (12.0-15.0) g/dL Hct (37.2-46.3) % RDW (11.5-15.5) % Plt Count (140-440) X 10*3/uL Plt Count Comment Lymphocytes # (1.0-4.8) k/uL Eosinophils # (0.04-0.35) X 10*3/uL Immature Plt Fraction (1.1-6.1) % Sodium (135-145) mmol/L Potassium (3.5-5.5) mmol/L BUN (9.0-27.0) mg/dL BUN/Creatinine Ratio (12.00-20.00) Ratio Glucose (70-110) mg/dL POC Glucose (mg/dL) 103 H (75-99) mg/dL Calcium (8.7-10.3) mg/dL % Saturation (12.00-45.00) Total Bilirubin (0.2-1.2) mg/dL AST (13-35) U/L Alkaline Phosphatase (41-126) U/L Ammonia 114 H (<30) umol/L Albumin (3.80-4.90) g/dL Globulin (1.6-3.3) g/dL Albumin/Globulin Ratio (1.60-3.17) g/dL Vitamin B12 (200.0-944.0) pg/mL Crossmatch Assessment and Plan Assessment: Low hemoglobin, EGD showing portal hypertensive gastropathy with no active ble eding Pancytopenia. Decompensated Alcoholic liver disease Hepatic encephalopathy Fever, rule out sepsis History of seizure disorder History of anxiety History of noncompliance Gastroesophageal reflux disease Plan: This is a pleasant 30 years old female who presents with nausea but not feeling well and found to have hepatic encephalopathy with elevated ammonia level, por immanuel hypertensive gastropathy after EGD done. And GI team R following the case closely and continue with lactulose for hepatic encephalopathy and monitor bowel movements. No more evidence of GI bleeds and monitor hemoglobin while on a Protonix Consult hematology team for pancytopenia, which is worsening We'll check abdominal ultrasound, blood culture and broughtcalcitonin for fever Labs and medication were reviewed.. Continue same treatment. Continue with symptomatic treatment. Resume home medication. Monitor lytes and vitals. DVT and GI prophylaxis. Further recommendationsas per clinical course of the patient DVT prophylaxis: no Subcutaneous heparin for significant thrombocytopenia GI Prophylaxis: Ppi Prognosis is guarded
--- NOTE | 2020-09-22 23:08 | US ---
EXAMINATION TYPE: US abdomen limited DATE OF EXAM: 09/22/2020 COMPARISON: US, CT CLINICAL HISTORY: ? ascitis . Ascites check. No fluid seen within the abdomen at this time by ultrasound. Scanned all four quadrants. Incidental finding: Spleen appears enlarged measuring 17.7 cm in length. IMPRESSION: There is no evidence of abdominal ascites. Right kidney shows no hydronephrosis. Spleen is enlarged.
[2020-09-23] MEDS: LEVOFLOXACIN 500 MG TAB PO SCH ×3 (00:58→23:58)
[2020-09-23] MEDS: Atomoxetine Hcl [Strattera] 60 MG Capsule PO SCH (08:04)
[2020-09-23] MEDS: LACTULOSE 20 GM/30 ML CUP PO SCH ×3 (08:06→22:30)
[2020-09-23] MEDS: PANTOPRAZOLE 40 MG/10 ML VIAL IVP SCH (08:08)
[2020-09-23] MEDS: FOLIC ACID 1 MG TAB PO SCH (08:09)
[2020-09-23] MEDS: levETIRAcetam 500 MG TAB PO SCH ×2 (08:09→22:30)
[2020-09-23] MEDS: LORazepam 2 MG/ML INJ IV PRN ×3 (08:18→22:41)
[2020-09-23] MEDS: ONDANSETRON 4 MG/2 ML VIAL IVP PRN ×3 (08:18→22:41)
[2020-09-23 10:12] LABS: African American GFR (CKD) 150.5 (60.0-200.0); Albumin 3.2 g/dL (3.80-4.90); Albumin/Globulin Ratio 0.89 (1.60-3.17); Anion Gap 9.9 mmol/L (4.00-12.00); Calcium 7.8 mg/dL (8.7-10.3); Carbon Dioxide 21.1 mmol/L (21.6-31.8); Globulin 3.6 g/dL (1.6-3.3); Non-African American GFR(CKD) 129.9 (60.0-200.0); Potassium 3.6 mmol/L (3.5-5.5); Total Bilirubin 4.5 mg/dL (0.2-1.2); Total Protein 6.8 g/dL (6.2-8.2)
[2020-09-23 10:27] LABS: Basophils # (A) 0.02 X 10*3/uL (0.00-0.10); Basophils % (A) 0.9 %; Eosinophils # (A) 0.05 X 10*3/uL (0.04-0.35); Eosinophils % (A) 2.3 %; HCT 24.5 % (37.2-46.3); HGB 7.8 g/dL (12.0-15.0); Lymphocytes # (A) 0.35 X 10*3/uL (0.90-5.00); Lymphocytes % (A) 16.1 %; MCHC 31.8 g/dL (32.0-37.0); MCV 97.2 fL (80.0-97.0); Monocytes # (A) 0.34 X 10*3/uL (0.20-1.00); Monocytes % (A) 15.7 %; Neutrophils % (A) 64.5 %; Platelet Count 25 X 10*3/uL (140-440); RBC 2.52 X 10*6/uL (4.10-5.20); RDW 17.9 % (11.5-14.5); WBC 2.17 X 10*3/uL (4.50-10.00)
--- NOTE | 2020-09-23 13:27 | P.PN ---
Subjective This is a pleasant 30 years old female with multiple medical problems including hepatic liver disease, seizure disorder, gastroesophageal reflux disease, alcohol abuse, previous history of hepatic encephalopathy, end-stage liver disease and ascites with previous paracentesis, thrombocytopenia, hypomagnesemia. She presents on nausea and on feeling well. She has worsening pancytopenia since 01/2020, she received 1 unit of blood transfusion recently for hemoglobin of 5 as per documentation. She has advanced alcoholic liver disease but She is not a candidate for liver transplant due to her ongoing alcohol consumption and abuse On admission her hemoglobin dropped to 6.0 and she received 2 units of blood transfusion and her hemoglobin went up to 8.2 today. Her WBCs slightly improved to 4.0K and she has low platelets 16-21K. Anemia workup showing anemia of chronic disease, B12 and folate are deficient. Reticulocyte count is 1.5%. P june underwent EGD today by GI team showing moderate portal hypertensive gastropathy with no active bleeding. This morning also she developed low-grade temperature of 100.3. Will order blood culture, proteincalcitonin, abdominal ultrasound and infectious disease consult. Also will check EKG in the morning 09/23/2020 Patient feels better regarding her nausea and generalized weakness today. She is more awake and alert today. She still somewhat tachycardic at 107. Restoril vitals are stable. No more fever since yesterday She still pancytopenic with WBC 2.1K, hemoglobin 7.8 and platelets 25K. ammonia is slightly less at 96. Patient says that she had 3 bowel movements yesterday and wanted to bowel movement today. Unsure minutes and lactulose. BNP is unremarkable and liver enzymes are slightly trending down. EGD showing moderate portal hypertensive gastropathy. No active bleeding. Abdominal ultrasound yesterday showed no cystitis but enlarged spleen Natural Science Manager team already been consulted Because of fever patient was started on small dose of Levaquin 500 mg by mouth daily while waiting for blood culture and throatcalcitonin Review of systems CONSTITUTIONAL: No fever, no malaise, no fatigue. HEENT: No recent visual problems or hearing problems. Denied any sore throat. CARDIOVASCULAR: No orthopnea, PND, no palpitations, no syncope. PULMONARY: No shortness of breath, no cough, no hemoptysis. GASTROINTESTINAL: No diarrhea, no nausea, no vomiting, no abdominal pain. Normoactive bowel sounds. NEUROLOGICAL: No headaches, no weakness, no numbness. Active Medications Generic Name Dose Route Start Last Admin Trade Name Freq PRN Reason Stop Dose Admin Folic Acid 1 mg 09/22/20 09:00 09/23/20 08:09 Folic Acid 1 Mg Tab PO 1 mg DAILY CE Administration Sodium Chloride 1,000 mls @ 50 mls/hr 09/20/20 20:00 09/22/20 11:02 Saline 0.9% IV 50 mls/hr .Q20H CE Administration Lactulose 30 gm 09/21/20 16:00 09/23/20 08:06 Lactulose 20 Gm/30 Ml Cup PO 30 gm TID CE Administration Levetiracetam 1,000 mg 09/21/20 09:00 09/23/20 08:09 Levetiracetam 500 Mg Tab PO 1,000 mg BID CE Administration Levofloxacin 500 mg 09/23/20 01:00 09/23/20 01:01 Levofloxacin 500 Mg Tab PO Not Given Q24H [facility] Lorazepam 1 mg 09/20/20 19:43 09/23/20 08:18 Lorazepam 2 Mg/Ml Inj IV 1 mg Q2HR PRN Administration CIWA 8 or 9 Lorazepam 1 mg 09/20/20 19:43 Lorazepam 2 Mg/Ml Inj IV Q1HR PRN CIWA 10 to 15 Miscellaneous Information 1 each 09/22/20 04:16 Potassium Replacement Protocol 1 Each Misc MISCELLANE DAILY PRN Per Protocol Protocol Naloxone HCl 0.2 mg 09/20/20 19:58 Naloxone 0.4 Mg/Ml 1 Ml Vial IV Q2M PRN Opioid Reversal Atomoxetine Hcl [ 60 mg 09/22/20 09:00 09/23/20 08:04 Strattera] 60 Mg PO Not Given Capsule DAILY [facility] Ondansetron HCl 4 mg 09/21/20 08:19 09/23/20 08:18 Ondansetron 4 Mg/2 Ml Vial IVP 4 mg Q6HR PRN Administration Nausea And Vomiting Pantoprazole Sodium 40 mg 09/23/20 09:00 09/23/20 08:08 Pantoprazole 40 Mg/10 Ml Vial IVP 40 mg DAILY CE Administration Tramadol HCl 50 mg 09/21/20 10:22 09/22/20 15:13 Tramadol 50 Mg Tab PO 50 mg Q6H PRN Administration Pain Objective - Vital Signs Vital signs: Vital Signs Temp 97.7 F 09/23/20 08:00 Pulse 107 H 09/23/20 08:00 Resp 16 09/23/20 08:00 BP 131/79 09/23/20 08:00 Pulse Ox 99 09/23/20 08:00 Intake & Output 09/22/20 09/23/20 09/23/20 18:59 06:59 18:59 Intake Total 250 Balance 250 Intake: IV 250 Other: Voiding Method Bedside Commode Bedpan Diaper # Voids 4 2 # Bowel Movements 1 2 - Exam -GENERAL: The patient is alert and oriented x3, mild drowsiness, not in any acute distress. Well developed, well nourished. HEENT: Pupils are round and equally reacting to light. EOMI. No scleral icterus. No conjunctival pallor. Normocephalic, atraumatic. No pharyngeal erythema. No thyromegaly. CARDIOVASCULAR: S1 and S2 present. No murmurs, rubs, or gallops. PULMONARY: Chest is clear to auscultation, no wheezing or crackles. ABDOMEN: Soft, nontender, nondistended, normoactive bowel sounds. No palpable organomegaly. MUSCULOSKELETAL: No joint swelling or deformity. EXTREMITIES: No cyanosis, clubbing, or pedal edema. NEUROLOGICAL: Gross neurological examination did not reveal any focal deficits. SKIN: No rashes. no petechiae. - Labs CBC & Chem 7: 09/23/20 05:41 09/23/20 05:41 Labs: Abnormal Lab Results - Last 24 Hours (Table) 09/23/20 09/23/20 09/23/20 Range/Units 05:41 05:41 05:41 WBC 2.17 L (4.50-10.00) X 10*3/uL RBC 2.52 L (4.10-5.20) X 10*6/uL Hgb 7.8 L (12.0-15.0) g/dL Hct 24.5 L (37.2-46.3) % MCV 97.2 H (80.0-97.0) fL MCHC 31.8 L (32.0-37.0) g/dL RDW 17.9 H (11.5-14.5) % Plt Count 25 L (140-440) X 10*3/uL Plt Count Comment A Neutrophils # 1.40 L (1.80-7.70) X 10*3/uL Lymphocytes # 0.35 L (0.90-5.00) X 10*3/uL Immature Plt Fraction 7.9 H (1.1-6.1) % Sodium 134 L (135-145) mmol/L Carbon Dioxide 21.1 L (21.6-31.8) mmol/L BUN 6.0 L (9.0-27.0) mg/dL Creatinine 0.5 L (0.6-1.5) mg/dL Calcium 7.8 L (8.7-10.3) mg/dL Total Bilirubin 4.5 H (0.2-1.2) mg/dL AST 70 H (13-35) U/L Alkaline Phosphatase 173 H (41-126) U/L Ammonia 96 H (<30) umol/L Albumin 3.20 L (3.80-4.90) g/dL Globulin 3.6 H (1.6-3.3) g/dL Albumin/Globulin Ratio 0.89 L (1.60-3.17) g/dL Assessment and Plan Assessment: Low hemoglobin, EGD showing portal hypertensive gastropathy with no active bleeding Pancytopenia. With splenomegaly Low-grade temperature, follow-up blood culture Decompensated Alcoholic liver disease Hepatic encephalopathy Fever, rule out sepsis History of seizure disorder History of anxiety History of noncompliance Gastroesophageal reflux disease Plan: This is a pleasant 30 years old female who presents with nausea but not feeling well and found to have hepatic encephalopathy with elevated ammonia level, portal hypertensive gastropathy after EGD done. And GI team R following the case closely and continue with lactulose for hepatic encephalopathy and monitor bowel movements. No more evidence of GI bleeds and monitor hemoglobin while on a Protonix Consult hematology team for pancytopenia, which is worsening Labs and medication were reviewed.. Continue same treatment. Continue with symptomatic treatment. Resume home medication. Monitor lytes and vitals. DVT and GI prophylaxis. Further recommendationsas per clinical course of the patient DVT prophylaxis: no Subcutaneous heparin for significant thrombocytopenia GI Prophylaxis: Ppi Prognosis is guarded
[2020-09-23 14:58] LABS: % Iron Saturation 5.36 (12.00-45.00); Ferritin 19.5 ng/mL (10.0-291.0)
[2020-09-23] MEDS: SODIUM CHLORIDE 0.9% 1,000 ML IV SCH (14:59)
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
[2020-09-23 16:00] LABS: Protein, Total 7.4 g/dL (6.2-8.2)
[2020-09-23] MEDS: FAMOTIDINE 20 MG TAB PO SCH (23:57)
[2020-09-23] MEDS: FERROUS SULFATE 325 MG TAB PO SCH (23:57)
[2020-09-24] MEDS: SODIUM CHLORIDE 0.9% 1,000 ML IV SCH (05:36)
[2020-09-24] MEDS: LORazepam 2 MG/ML INJ IV PRN ×3 (07:56→20:36)
[2020-09-24] MEDS: ONDANSETRON 4 MG/2 ML VIAL IVP PRN ×2 (07:57→15:49)
[2020-09-24] MEDS: FERROUS SULFATE 325 MG TAB PO SCH ×2 (07:57→17:38)
[2020-09-24] MEDS: Atomoxetine Hcl [Strattera] 60 MG Capsule PO SCH (08:39)
[2020-09-24] MEDS: LACTULOSE 20 GM/30 ML CUP PO SCH ×3 (09:33→22:46)
[2020-09-24] MEDS: levETIRAcetam 500 MG TAB PO SCH ×2 (09:34→20:35)
[2020-09-24] MEDS: FOLIC ACID 1 MG TAB PO SCH (09:34)
[2020-09-24] MEDS: PANTOPRAZOLE 40 MG/10 ML VIAL IVP SCH (09:35)
[2020-09-24 09:45] LABS: African American GFR (CKD) 141.8 (60.0-200.0); Albumin 3.2 g/dL (3.80-4.90); Albumin/Globulin Ratio 0.91 (1.60-3.17); Anion Gap 10.1 mmol/L (4.00-12.00); Bilirubin, Conjugated 2.7 mg/dL (0.20-0.40); Calcium 7.8 mg/dL (8.7-10.3); Carbon Dioxide 20.9 mmol/L (21.6-31.8); Globulin 3.5 g/dL (1.6-3.3); Non-African American GFR(CKD) 122.3 (60.0-200.0); Potassium 3.2 mmol/L (3.5-5.5); Total Bilirubin 3.7 mg/dL (0.2-1.2); Total Protein 6.7 g/dL (6.2-8.2)
[2020-09-24 10:04] LABS: Basophils # (A) 0.03 X 10*3/uL (0.00-0.10); Basophils % (A) 1.2 %; Eosinophils # (A) 0.07 X 10*3/uL (0.04-0.35); Eosinophils % (A) 2.8 %; HCT 24.9 % (37.2-46.3); HGB 7.7 g/dL (12.0-15.0); Lymphocytes # (A) 0.44 X 10*3/uL (0.90-5.00); Lymphocytes % (A) 17.8 %; MCH 30.4 pg (27.0-32.0); MCHC 30.9 g/dL (32.0-37.0); MCV 98.4 fL (80.0-97.0); Mean Platelet Volume 12.1 fL (9.5-12.2); Monocytes % (A) 16.2 %; Neutrophils # (A) 1.51 X 10*3/uL (1.80-7.70); Neutrophils % (A) 61.2 %; Platelet Count 39 X 10*3/uL (140-440); RBC 2.53 X 10*6/uL (4.10-5.20); RDW 17.7 % (11.5-14.5); WBC 2.47 X 10*3/uL (4.50-10.00)
[2020-09-24] MEDS ORDERED: SODIUM FERRIC GLUCONAT-SUCROSE 125 MG in SODIUM CHLORIDE 0.9% 100 ML IVPB ONE (10:20)
--- NOTE | 2020-09-24 10:27 | P.PN ---
Subjective Progress Note Date: 09/24/20 Principal diagnosis: pancytopenia In f/u pt is agitated, wanting to go home. Denies acute physical c/o. Objective - Vital Signs Vital signs: Vital Signs Temp 97.9 F 09/24/20 06:57 Pulse 103 H 09/24/20 06:57 Resp 16 09/24/20 06:57 BP 119/66 09/24/20 06:57 Pulse Ox 99 09/24/20 06:57 Intake & Output 09/23/20 09/24/20 09/24/20 18:59 06:59 18:59 Other: Voiding Method Bedside Commode Bedside Commode Bedside Commode Bedpan Diaper Diaper Diaper # Voids 3 2 # Bowel Movements 0 2 - Constitutional General appearance: Present: average body habitus, mild distress - EENT Eyes: Present: EOMI, scleral icterus (improved) ENT: Present: hearing grossly normal - Respiratory Details: resp even and unlabored - Integumentary Integumentary: Present: jaundiced - Neurologic Neurologic: Present: CNII-XII intact - Musculoskeletal Musculoskeletal: Present: strength equal bilaterally - Psychiatric Psychiatric: Present: A&O x's 3 - Labs CBC & Chem 7: 09/24/20 04:58 09/24/20 04:58 Labs: Abnormal Lab Results - Last 24 Hours (Table) 09/22/20 09/23/20 09/23/20 Range/Units 22:43 05:41 08:52 WBC 2.17 L (4.50-10.00) X 10*3/uL RBC 2.52 L (4.10-5.20) X 10*6/uL Hgb 7.8 L (12.0-15.0) g/dL Hct 24.5 L (37.2-46.3) % MCV 97.2 H (80.0-97.0) fL MCHC 31.8 L (32.0-37.0) g/dL RDW 17.9 H (11.5-14.5) % Plt Count 25 L (140-440) X 10*3/uL Plt Count Comment A Neutrophils # 1.40 L (1.80-7.70) X 10*3/uL Lymphocytes # 0.35 L (0.90-5.00) X 10*3/uL Immature Plt Fraction 7.9 H (1.1-6.1) % Sodium (135-145) mmol/L Potassium (3.5-5.5) mmol/L Carbon Dioxide (21.6-31.8) mmol/L BUN (9.0-27.0) mg/dL BUN/Creatinine Ratio (12.00-20.00) Ratio Calcium (8.7-10.3) mg/dL Iron 18 L (50-170) ug/dL % Saturation 5.36 L (12.00-45.00) Total Bilirubin (0.2-1.2) mg/dL Conjugated Bilirubin (0.20-0.40) mg/dL AST (13-35) U/L Alkaline Phosphatase (41-126) U/L Ammonia (<30) umol/L Albumin (3.80-4.90) g/dL Globulin (1.6-3.3) g/dL Albumin/Globulin Ratio (1.60-3.17) g/dL Procalcitonin 0.16 H (0.02-0.09) ng/mL 09/24/20 09/24/20 09/24/20 Range/Units 04:58 04:58 04:58 WBC 2.47 L (4.50-10.00) X 10*3/uL RBC 2.53 L (4.10-5.20) X 10*6/uL Hgb 7.7 L (12.0-15.0) g/dL Hct 24.9 L (37.2-46.3) % MCV 98.4 H (80.0-97.0) fL MCHC 30.9 L (32.0-37.0) g/dL RDW 17.7 H (11.5-14.5) % Plt Count 39 L (140-440) X 10*3/uL Plt Count Comment A Neutrophils # 1.51 L (1.80-7.70) X 10*3/uL Lymphocytes # 0.44 L (0.90-5.00) X 10*3/uL Immature Plt Fraction 9.1 H (1.1-6.1) % Sodium 134 L (135-145) mmol/L Potassium 3.2 L (3.5-5.5) mmol/L Carbon Dioxide 20.9 L (21.6-31.8) mmol/L BUN 6.0 L (9.0-27.0) mg/dL BUN/Creatinine Ratio 10.00 L (12.00-20.00) Ratio Calcium 7.8 L (8.7-10.3) mg/dL Iron (50-170) ug/dL % Saturation (12.00-45.00) Total Bilirubin 3.7 H (0.2-1.2) mg/dL Conjugated Bilirubin 2.70 H (0.20-0.40) mg/dL AST 53 H (13-35) U/L Alkaline Phosphatase 176 H (41-126) U/L Ammonia 55 H (<30) umol/L Albumin 3.20 L (3.80-4.90) g/dL Globulin 3.5 H (1.6-3.3) g/dL Albumin/Globulin Ratio 0.91 L (1.60-3.17) g/dL Procalcitonin (0.02-0.09) ng/mL Microbiology - Last 24 Hours (Table) 09/22/20 22:43 Blood Culture - Preliminary Blood No Growth after 24 hours - Imaging and Cardiology US - abdomen: report reviewed Assessment and Plan (1) Pancytopenia Narrative/Plan: Noted in this EMR as far back as 2018, exacerbations and recovery seen. Discussed with pt again today that her count abnormalities are most likley r/t marrow damage from ETOH. She is iron deficient, still pending paraproteinemia labs. Her counts, though not normal, are adequate and do not require transfusion at this time. Discussion of abstaining from ETOH made pt agitated so, discussion was stopped. No transfusions needed today. Pt started on oral iron. 1 dose of IV iron ordered Current Visit: Yes Status: Chronic Priority: High Code(s): D61.818 - OTHER PANCYTOPENIA SNOMED Code(s): 229492098
[2020-09-24 13:36] LABS: Gamma Globulin 2.58 g/dL (0.70-1.50)
--- NOTE | 2020-09-24 14:35 | P.PN ---
Subjective Progress Note Date: 09/24/20 Principal diagnosis: Decompensated cirrhosis of the liver, anemia Patient was seen and examined lying in bed. She is awake and alert 3. She is status post upper endoscopy which revealed moderate portal hypertensive gastropathy, no signs of GI bleed. She denies any symptoms of GI bleed, nausea, vomiting, or abdominal pain. Mentality is on consult and has seen patient. Objective - Vital Signs Vital signs: Vital Signs Temp 97.9 F 09/24/20 06:57 Pulse 103 H 09/24/20 06:57 Resp 16 09/24/20 06:57 BP 119/66 09/24/20 06:57 Pulse Ox 99 09/24/20 06:57 Intake & Output 09/23/20 09/24/20 09/24/20 18:59 06:59 18:59 Other: Voiding Method Bedside Commode Bedside Commode Bedside Commode Bedpan Diaper Diaper Diaper # Voids 3 2 # Bowel Movements 0 2 - Exam General appearance: The patient is alert, oriented, in no acute distress. HET: Head is normocephalic and atraumatic. Conjunctiva pink. Sclera icteric. Neck: Supple without lymphadenopathy. Abdomen: Soft, nontender, nondistended with bowel sounds. No guarding or rigidity. Extremities: Normal skin color and turgor. Pedal edema. Skin: Jaundice. Neurological: No focal deficits. Alert and oriented 3. - Labs CBC & Chem 7: 09/24/20 04:58 09/24/20 04:58 Labs: Abnormal Lab Results - Last 24 Hours (Table) 09/22/20 09/23/20 09/24/20 Range/Units 22:43 08:52 04:58 WBC (4.50-10.00) X 10*3/uL RBC (4.10-5.20) X 10*6/uL Hgb (12.0-15.0) g/dL Hct (37.2-46.3) % MCV (80.0-97.0) fL MCHC (32.0-37.0) g/dL RDW (11.5-14.5) % Plt Count (140-440) X 10*3/uL Plt Count Comment Neutrophils # (1.80-7.70) X 10*3/uL Lymphocytes # (0.90-5.00) X 10*3/uL Immature Plt Fraction (1.1-6.1) % Sodium (135-145) mmol/L Potassium (3.5-5.5) mmol/L Carbon Dioxide (21.6-31.8) mmol/L BUN (9.0-27.0) mg/dL BUN/Creatinine Ratio (12.00-20.00) Ratio Calcium (8.7-10.3) mg/dL Iron 18 L (50-170) ug/dL % Saturation 5.36 L (12.00-45.00) Total Bilirubin (0.2-1.2) mg/dL Conjugated Bilirubin (0.20-0.40) mg/dL AST (13-35) U/L Alkaline Phosphatase (41-126) U/L Ammonia 55 H (<30) umol/L Albumin (3.80-4.90) g/dL Globulin (1.6-3.3) g/dL Albumin/Globulin Ratio (1.60-3.17) g/dL Procalcitonin 0.16 H (0.02-0.09) ng/mL 09/24/20 09/24/20 Range/Units 04:58 04:58 WBC 2.47 L (4.50-10.00) X 10*3/uL RBC 2.53 L (4.10-5.20) X 10*6/uL Hgb 7.7 L (12.0-15.0) g/dL Hct 24.9 L (37.2-46.3) % MCV 98.4 H (80.0-97.0) fL MCHC 30.9 L (32.0-37.0) g/dL RDW 17.7 H (11.5-14.5) % Plt Count 39 L (140-440) X 10*3/uL Plt Count Comment A Neutrophils # 1.51 L (1.80-7.70) X 10*3/uL Lymphocytes # 0.44 L (0.90-5.00) X 10*3/uL Immature Plt Fraction 9.1 H (1.1-6.1) % Sodium 134 L (135-145) mmol/L Potassium 3.2 L (3.5-5.5) mmol/L Carbon Dioxide 20.9 L (21.6-31.8) mmol/L BUN 6.0 L (9.0-27.0) mg/dL BUN/Creatinine Ratio 10.00 L (12.00-20.00) Ratio Calcium 7.8 L (8.7-10.3) mg/dL Iron (50-170) ug/dL % Saturation (12.00-45.00) Total Bilirubin 3.7 H (0.2-1.2) mg/dL Conjugated Bilirubin 2.70 H (0.20-0.40) mg/dL AST 53 H (13-35) U/L Alkaline Phosphatase 176 H (41-126) U/L Ammonia (<30) umol/L Albumin 3.20 L (3.80-4.90) g/dL Globulin 3.5 H (1.6-3.3) g/dL Albumin/Globulin Ratio 0.91 L (1.60-3.17) g/dL Procalcitonin (0.02-0.09) ng/mL Microbiology - Last 24 Hours (Table) 09/22/20 22:43 Blood Culture - Preliminary Blood No Growth after 24 hours Assessment and Plan (1) Liver cirrhosis Narrative/Plan: 30-year-old female with multiple medical comorbidities including decompensated cirrhosis secondary to alcohol abuse with ascites and encephalopathy in the past as well as chronic anemia who presented due to nausea to all intoxication. He has a long-standing history of alcohol abuse but had been sober for a few months but reports that she resumed drinking over the past few months proximally pint a day of alcohol. She has required paracentesis in the past and treatment of encephalopathy. Currently taking no medications at home. Patient has a known history of anemia likely multifactorial secondary to chronic alcohol use and myelosuppression, no prior endoscopy she is reporting small amounts of red blood per rectum with straining and constipation. Current Visit: Yes Status: Acute Code(s): K74.60 - UNSPECIFIED CIRRHOSIS OF LIVER SNOMED Code(s): 68156817 (2) Alcohol intoxication Current Visit: Yes Status: Acute Code(s): F10.929 - ALCOHOL USE, UNSPECIFIED WITH INTOXICATION, UNSPECIFIED SNOMED Code(s): 64765220 (3) Ascites Current Visit: Yes Status: Acute Code(s): R18.8 - OTHER ASCITES SNOMED Code(s): 544689518 (4) Pancytopenia Narrative/Plan: Hematology on consult, likely all related to bone marrow damage from ETOH abuse and liver disease. Current Visit: Yes Status: Chronic Priority: High Code(s): D61.818 - OTHER PANCYTOPENIA SNOMED Code(s): 646784989 (5) ETOH abuse Current Visit: No Status: Acute Code(s): F10.10 - ALCOHOL ABUSE, UNCOMPLICATED SNOMED Code(s): 54714604 (6) Elevated liver enzymes Current Visit: No Status: Acute Code(s): R74.8 - ABNORMAL LEVELS OF OTHER SERUM ENZYMES SNOMED Code(s): 160375003 (7) Hepatic encephalopathy Current Visit: No Status: Acute Code(s): K72.90 - HEPATIC FAILURE, UNSPECIFIED WITHOUT COMA SNOMED Code(s): 46649201 Plan: Continue supportive care Continue lactulose, titrate 3-4 bowel movements daily Alcohol abstinence Appreciate recommendations from hematology Patient is status post EGD with no active bleeding Repeat labs CBC CMP in a.m. Discussion had agian with patient regarding importance of alcohol abstinence, patient states she is planning in patient rehab once discharged She may be discharged home from a gastroenterology standpoint. Recommend close outpatient follow-up with gastroenterology For this consultation, we will continue to follow Dr. Hartley I agree with the dictator's note, documented as a scribe by Guerita Tom.
--- NOTE | 2020-09-24 19:26 | P.PN ---
Subjective This is a pleasant 30 years old female with multiple medical problems including hepatic liver disease, seizure disorder, gastroesophageal reflux disease, alcohol abuse, previous history of hepatic encephalopathy, end-stage liver disease and ascites with previous paracentesis, thrombocytopenia, hypomagnesemia. She presents on nausea and on feeling well. She has worsening pancytopenia since 01/2020, she received 1 unit of blood transfusion recently for hemoglobin of 5 as per documentation. She has advanced alcoholic liver disease but She is not a candidate for liver transplant due to her ongoing alcohol consumption and abuse On admission her hemoglobin dropped to 6.0 and she received 2 units of blood transfusion and her hemoglobin went up to 8.2 today. Her WBCs slightly improved to 4.0K and she has low platelets 16-21K. Anemia workup showing anemia of chronic disease, B12 and folate are deficient. Reticulocyte count is 1.5%. P june underwent EGD today by GI team showing moderate portal hypertensive gastropathy with no active bleeding. This morning also she developed low-grade temperature of 100.3. Will order blood culture, proteincalcitonin, abdominal ultrasound and infectious disease consult. Also will check EKG in the morning 09/23/2020 Patient feels better regarding her nausea and generalized weakness today. She is more awake and alert today. She still somewhat tachycardic at 107. Restoril vitals are stable. No more fever since yesterday She still pancytopenic with WBC 2.1K, hemoglobin 7.8 and platelets 25K. ammonia is slightly less at 96. Patient says that she had 3 bowel movements yesterday and wanted to bowel movement today. Unsure minutes and lactulose. BNP is unremarkable and liver enzymes are slightly trending down. EGD showing moderate portal hypertensive gastropathy. No active bleeding. Abdominal ultrasound yesterday showed no cystitis but enlarged spleen Lead Maintenance Technician team already been consulted Because of fever patient was started on small dose of Levaquin 500 mg by mouth daily while waiting for blood culture and throatcalcitonin 09/24/2020 Patient is more awake and alert today. She is been asking to go home today stated that she is back to her baseline however she still complaining from Zofran and she needed one dose this morning and yesterday she was eating 25-50% of her meal, patient is encouraged to eat more and today she was eating 75 200% procalcitonin is within normal limits, no more fever for more than 48 hours. Discontinue Levaquin especially in the absence of symptoms and improvement in her clinical picture Hematology service R following the patient closely for her pancytopenia which is slightly improving, IV iron is given for iron deficiency anemia per hematology team Possible discharge in 24-48 hours if she keeps improved Objective - Vital Signs Vital signs: Vital Signs Temp 98.1 F 09/24/20 13:26 Pulse 105 H 09/24/20 13:26 Resp 15 09/24/20 13:26 BP 114/68 09/24/20 13:26 Pulse Ox 97 09/24/20 13:26 Intake & Output 09/23/20 09/24/20 09/24/20 18:59 06:59 18:59 Other: Voiding Method Bedside Commode Bedside Commode Bedside Commode Bedpan Diaper Diaper Diaper # Voids 3 2 # Bowel Movements 0 2 - Exam -GENERAL: The patient is alert and oriented x3, mild drowsiness, not in any acute distress. Well developed, well nourished. HEENT: Pupils are round and equally reacting to light. EOMI. No scleral icterus. No conjunctival pallor. Normocephalic, atraumatic. No pharyngeal erythema. No thyromegaly. CARDIOVASCULAR: S1 and S2 present. No murmurs, rubs, or gallops. PULMONARY: Chest is clear to auscultation, no wheezing or crackles. ABDOMEN: Soft, nontender, nondistended, normoactive bowel sounds. No palpable organomegaly. MUSCULOSKELETAL: No joint swelling or deformity. EXTREMITIES: No cyanosis, clubbing, or pedal edema. NEUROLOGICAL: Gross neurological examination did not reveal any focal deficits. SKIN: No rashes. no petechiae. - Labs CBC & Chem 7: 09/24/20 04:58 09/24/20 04:58 Labs: Abnormal Lab Results - Last 24 Hours (Table) 09/22/20 09/23/20 09/23/20 Range/Units 22:43 08:52 08:52 WBC (4.50-10.00) X 10*3/uL RBC (4.10-5.20) X 10*6/uL Hgb (12.0-15.0) g/dL Hct (37.2-46.3) % MCV (80.0-97.0) fL MCHC (32.0-37.0) g/dL RDW (11.5-14.5) % Plt Count (140-440) X 10*3/uL Plt Count Comment Neutrophils # (1.80-7.70) X 10*3/uL Lymphocytes # (0.90-5.00) X 10*3/uL Immature Plt Fraction (1.1-6.1) % Sodium (135-145) mmol/L Potassium (3.5-5.5) mmol/L Carbon Dioxide (21.6-31.8) mmol/L BUN (9.0-27.0) mg/dL BUN/Creatinine Ratio (12.00-20.00) Ratio Calcium (8.7-10.3) mg/dL Iron 18 L (50-170) ug/dL % Saturation 5.36 L (12.00-45.00) Total Bilirubin (0.2-1.2) mg/dL Conjugated Bilirubin (0.20-0.40) mg/dL AST (13-35) U/L Alkaline Phosphatase (41-126) U/L Ammonia (<30) umol/L Albumin (3.80-4.90) g/dL Albumin (PEP) 3.00 L (3.80-4.90) g/dL Globulin (1.6-3.3) g/dL Albumin/Globulin Ratio (1.60-3.17) g/dL Amunr-9-Cwylycxje 0.55 L (0.60-1.00) g/dL Gamma Globulins 2.58 H (0.70-1.50) g/dL Procalcitonin 0.16 H (0.02-0.09) ng/mL Free [place] LC, Quant 10.90 H (0.33-1.94) mg/dL Free Lambda LC, Quant 6.60 H (0.57-2.63) mg/dL 09/24/20 09/24/20 09/24/20 Range/Units 04:58 04:58 04:58 WBC 2.47 L (4.50-10.00) X 10*3/uL RBC 2.53 L (4.10-5.20) X 10*6/uL Hgb 7.7 L (12.0-15.0) g/dL Hct 24.9 L (37.2-46.3) % MCV 98.4 H (80.0-97.0) fL MCHC 30.9 L (32.0-37.0) g/dL RDW 17.7 H (11.5-14.5) % Plt Count 39 L (140-440) X 10*3/uL Plt Count Comment A Neutrophils # 1.51 L (1.80-7.70) X 10*3/uL Lymphocytes # 0.44 L (0.90-5.00) X 10*3/uL Immature Plt Fraction 9.1 H (1.1-6.1) % Sodium 134 L (135-145) mmol/L Potassium 3.2 L (3.5-5.5) mmol/L Carbon Dioxide 20.9 L (21.6-31.8) mmol/L BUN 6.0 L (9.0-27.0) mg/dL BUN/Creatinine Ratio 10.00 L (12.00-20.00) Ratio Calcium 7.8 L (8.7-10.3) mg/dL Iron (50-170) ug/dL % Saturation (12.00-45.00) Total Bilirubin 3.7 H (0.2-1.2) mg/dL Conjugated Bilirubin 2.70 H (0.20-0.40) mg/dL AST 53 H (13-35) U/L Alkaline Phosphatase 176 H (41-126) U/L Ammonia 55 H (<30) umol/L Albumin 3.20 L (3.80-4.90) g/dL Albumin (PEP) (3.80-4.90) g/dL Globulin 3.5 H (1.6-3.3) g/dL Albumin/Globulin Ratio 0.91 L (1.60-3.17) g/dL Ixsep-3-Ddvacjwhr (0.60-1.00) g/dL Gamma Globulins (0.70-1.50) g/dL Procalcitonin (0.02-0.09) ng/mL Free [place] LC, Quant (0.33-1.94) mg/dL Free Lambda LC, Quant (0.57-2.63) mg/dL Microbiology - Last 24 Hours (Table) 09/22/20 22:43 Blood Culture - Preliminary Blood No Growth after 24 hours Assessment and Plan Assessment: Low hemoglobin, EGD showing portal hypertensive gastropathy with no active bleeding. Lead Maintenance Technician team on the case Pancytopenia. With splenomegaly Low-grade temperature, improved. No active infection. Discontinue antibiotic Decompensated Alcoholic liver disease Hepatic encephalopathy, resolved and patient is awake History of seizure disorder History of anxiety History of noncompliance Gastroesophageal reflux disease Plan: This is a pleasant 30 years old female who presents with nausea but and alcoholic liver disease. Patient is clinically improving are more awake. We will keep monitoring for her persistent nausea and if it improves and patient it is improved and possible discharge tomorrow if she got cleared by hematology and other services. GI team evaluated the patient. Also patient on Protonix and Pepcid is added. Discontinue Levaquin. Continue with lactulose Labs and medication were reviewed.. Continue same treatment. Continue with symptomatic treatment. Resume home medication. Monitor lytes and vitals. DVT and GI prophylaxis. Further recommendationsas per clinical course of the patient DVT prophylaxis: no Subcutaneous heparin for significant thrombocytopenia GI Prophylaxis: Ppi Prognosis is guarded
[2020-09-24] MEDS: FAMOTIDINE 20 MG TAB PO SCH (20:34)
[2020-09-24] MEDS: traMADol 50 MG TAB PO PRN (20:35)
[2020-09-25] MEDS: SODIUM CHLORIDE 0.9% 1,000 ML IV SCH (00:42)
[2020-09-25 07:09] VITALS: BP 126/83; PULSE 98; RESP 18; TEMP 98.1
[2020-09-25] MEDS: FERROUS SULFATE 325 MG TAB PO SCH (07:46)
[2020-09-25] MEDS: ONDANSETRON 4 MG/2 ML VIAL IVP PRN (07:46)
[2020-09-25] MEDS: LORazepam 2 MG/ML INJ IV PRN (07:47)
[2020-09-25 07:55] LABS: Methylmalonic Acid 0.16 umol/L (<0.40)
[2020-09-25 11:00] LABS: HIV 2 AB Non-Reactive (Non-Reactive); HIV AB P24 Non-Reactive (Non-Reactive); HIV P24 AG Non-Reactive (Non-Reactive)
[2020-09-25] MEDS: FOLIC ACID 1 MG TAB PO SCH (11:01)
[2020-09-25] MEDS: LACTULOSE 20 GM/30 ML CUP PO SCH (11:01)
[2020-09-25] MEDS: PANTOPRAZOLE 40 MG/10 ML VIAL IVP SCH (11:01)
[2020-09-25] MEDS: levETIRAcetam 500 MG TAB PO SCH (11:02)
[2020-09-25] MEDS: Atomoxetine Hcl [Strattera] 60 MG Capsule PO SCH (11:03)
--- NOTE | 2020-09-25 12:42 | P.PN ---
Subjective Progress Note Date: 09/25/20 Principal diagnosis: pancytopenia In f/u pt is irritable, no acute c/o, tolerated IV iron, tolerating PO iron BID so far. Objective - Vital Signs Vital signs: Vital Signs Temp 98.1 F 09/25/20 07:07 Pulse 98 09/25/20 07:07 Resp 18 09/25/20 07:07 BP 126/83 09/25/20 07:07 Pulse Ox 98 09/25/20 07:07 Intake & Output 09/24/20 09/25/20 09/25/20 18:59 06:59 18:59 Intake Total 240 236 Balance 240 236 Intake: Oral 240 236 Other: Voiding Method Bedside Commode Bedside Commode Diaper Diaper # Voids 2 2 # Bowel Movements 2 - Constitutional General appearance: Present: average body habitus, no acute distress - EENT Eyes: Present: EOMI, scleral icterus ENT: Present: hearing grossly normal - Integumentary Integumentary: Present: jaundiced - Neurologic Neurologic: Present: CNII-XII intact - Musculoskeletal Musculoskeletal: Present: strength equal bilaterally - Psychiatric Psychiatric: Present: A&O x's 3, intact judgment & insight - Labs CBC & Chem 7: 09/24/20 04:58 09/24/20 04:58 Labs: Abnormal Lab Results - Last 24 Hours (Table) 09/23/20 09/23/20 Range/Units 08:52 08:52 Albumin (PEP) 3.00 L (3.80-4.90) g/dL Dbpll-1-Oblluwmpu 0.55 L (0.60-1.00) g/dL Gamma Globulins 2.58 H (0.70-1.50) g/dL RBC Folate 1,159 H (280 - 791) ng/mL Microbiology - Last 24 Hours (Table) 09/22/20 22:43 Blood Culture - Preliminary Blood No Growth after 48 hours Assessment and Plan (1) Pancytopenia Narrative/Plan: Noted in this EMR as far back as 2018, exacerbations and recovery seen. Pancytopenia most likley r/t marrow damage from ETOH. Iron deficiency being treated, s/p 1 IV iron, started on PO iron BID. Recheck CBC and iron studies 1 mo. No paraproteinemia, labs results reviewed. Her counts, though not normal, are adequate and do not require transfusion at this time. Current Visit: Yes Status: Chronic Priority: High Code(s): D61.818 - OTHER PANCYTOPENIA SNOMED Code(s): 625760582
--- NOTE | 2020-09-25 16:33 | P.PN ---
Subjective Progress Note Date: 09/25/20 Principal diagnosis: Anemia, decompensated cirrhosis with liver The 30-year-old female with a significant history of alcohol abuse with multiple admissions for alcoholic hepatitis with ascites and noncompliance. The patient was admitted with alcohol intoxication and nausea. Patienthas been treated for decompensated liver with encephalopathy and ascites in the past. She was found to be anemic on admission. She denies any signs of GI bleed. Denies any abdominal pain, nausea, or vomiting currently. She underwent an upper endoscopy which revealed moderate portal hypertensive gastropathy, no active bleeding or blood noted on EGD. The plan is for discharge home today. Hemoglobin is stable at 7.7. Hematology has been on consult for anemia, likely RELATED to bone roseanna ow damage from alcohol abuse and liver cirrhosis. Objective - Vital Signs Vital signs: Vital Signs Temp 98.1 F 09/25/20 07:07 Pulse 98 09/25/20 07:07 Resp 18 09/25/20 07:07 BP 126/83 09/25/20 07:07 Pulse Ox 98 09/25/20 07:07 Intake & Output 09/24/20 09/25/20 09/25/20 18:59 06:59 18:59 Intake Total 240 236 Balance 240 236 Intake: Oral 240 236 Other: Voiding Method Bedside Commode Bedside Commode Diaper Diaper # Voids 2 2 # Bowel Movements 2 - Exam General appearance: The patient is alert, oriented, appears in no acute distress. HET: Head is normocephalic and atraumatic. Conjunctiva pink. Sclera icteric. Neck: Supple without lymphadenopathy. Abdomen: Soft, nontender, nondistended with bowel sounds. No guarding or rigidity. Extremities: Normal skin color and turgor. No pedal edema Skin: No rashes, jaundice Neurological: No focal deficits. Alert and oriented 3. - Labs CBC & Chem 7: 09/24/20 04:58 09/24/20 04:58 Labs: Abnormal Lab Results - Last 24 Hours (Table) 09/23/20 09/23/20 Range/Units 08:52 08:52 Albumin (PEP) 3.00 L (3.80-4.90) g/dL Vcodg-9-Rjpbhyhng 0.55 L (0.60-1.00) g/dL Gamma Globulins 2.58 H (0.70-1.50) g/dL RBC Folate 1,159 H (280 - 791) ng/mL Free [place] LC, Quant 10.90 H (0.33-1.94) mg/dL Free Lambda LC, Quant 6.60 H (0.57-2.63) mg/dL Microbiology - Last 24 Hours (Table) 09/22/20 22:43 Blood Culture - Preliminary Blood No Growth after 48 hours Assessment and Plan (1) Liver cirrhosis Narrative/Plan: 30-year-old female with multiple medical comorbidities including decompensated cirrhosis secondary to alcohol abuse with ascites and encephalopathy in the past as well as chronic anemia who presented due to nausea to all intoxication. He has a long-standing history of alcohol abuse but had been sober for a few months but reports that she resumed drinking over the past few months proximally pint a day of alcohol. She has required paracentesis in the past and treatment of encephalopathy. Currently taking no medications at home. Patient has a known history of anemia likely multifactorial secondary to chronic alcohol use and myelosuppression, no prior endoscopy she is reporting small amounts of red blood per rectum with straining and constipation. Status: Acute Code(s): K74.60 - UNSPECIFIED CIRRHOSIS OF LIVER SNOMED Code(s): 69866365 (2) Alcohol intoxication Status: Acute Code(s): F10.929 - ALCOHOL USE, UNSPECIFIED WITH INTOXICATION, UNSPECIFIED SNOMED Code(s): 97904779 (3) Ascites Status: Acute Code(s): R18.8 - OTHER ASCITES SNOMED Code(s): 417913208 (4) Pancytopenia Narrative/Plan: Hematology on consult, likely all related to bone marrow damage from ETOH abuse and liver disease. Status: Chronic Priority: High Code(s): D61.818 - OTHER PANCYTOPENIA SNOMED Code(s): 926211531 (5) ETOH abuse Status: Acute Code(s): F10.10 - ALCOHOL ABUSE, UNCOMPLICATED SNOMED Code(s): 99179000 (6) Elevated liver enzymes Status: Acute Code(s): R74.8 - ABNORMAL LEVELS OF OTHER SERUM ENZYMES SNOMED Code(s): 956360382 (7) Hepatic encephalopathy Status: Acute Code(s): K72.90 - HEPATIC FAILURE, UNSPECIFIED WITHOUT COMA SNOMED Code(s): 70786091 Plan: 1. Supportive care 2. Continue low-sodium diet 3. Repeat CBC, CMP, INR 4. Patient is status post EGD with no signs of active bleeding 5. Alcohol abstinence 6. Patient may be discharged home from a gastroenterology standpoint, discussed with patient importance of alcohol cessation and follow-up with gastroenterology Thank you for this consultation Dr. Janee Raphael I agree with the dictator's note, documented as a scribe by Guerita Tom.
--- NOTE | 2020-09-27 12:47 | P.DS ---
Providers Date of admission: 09/21/20 09:41 Attending physician: Nicci Graff Consults: 09/20/20 19:43 Consult Physician Routine Consulting Provider: Pippa Raphael Consult Reason/Comments: gi bleeding? Do you want consulting provider notified?: Yes 09/22/20 21:41 Consult Physician Routine Consulting Provider: Eddy Arias Consult Reason/Comments: pancytopenia Do you want consulting provider notified?: Yes, Notify in am Primary care physician: Stated None Hospital Course: Diagnoses: Alcohol abuse and alcohol withdrawal Anemia with Low hemoglobin, EGD showing portal hypertensive gastropathy with no active bleeding. GI and [employer] team on the case and they cleared the patient for discharge Pancytopenia. With splenomegaly. [employer] team. The patient for discharge Low-grade temperature, improved. No active infection. Discontinue antibiotic upon discharge with no need further treatment Decompensated Alcoholic liver disease, stable upon discharge Hepatic encephalopathy, resolved and patient is awake History of seizure disorder History of anxiety History of noncompliance Gastroesophageal reflux disease Hospital course: This is a pleasant 30 years old female with multiple medical problems including hepatic liver disease, seizure disorder, gastroesophageal reflux disease, alcohol abuse, previous history of hepatic encephalopathy, end-stage liver disease and ascites with previous paracentesis, thrombocytopenia, hypomagnesemia. She presents on nausea and on feeling well. She has worsening pancytopenia since 01/2020, she received 1 unit of blood transfusion recently for hemoglobin of 5 as per documentation. She has advanced alcoholic liver disease but She is not a candidate for liver transplant due to her ongoing alcohol consumption and abuse On admission her hemoglobin dropped to 6.0 and she received 2 units of blood transfusion and her hemoglobin went up to 8.2 today. Her WBCs slightly improved to 4.0K and she has low platelets 16-21K. Anemia workup showing anemia of chronic disease, B12 and folate are normal. Reticulocyte count is 1.5%. Patient underwent EGD today by GI team showing moderate portal hypertensive gastropathy with no active bleeding.Abdominal ultrasound showed no ascites but enlarged spleen. Patient has been followed closely by GI and hematology team, she was treated with Protonix, Pepcid, CIWA protocol and normal saline as well a s lactulose. She got awake and back to her normal state of mentation. Her nausea is improved and she started eating most of her meal prior to discharge about 75-100% On the day of discharge she was fully awake and oriented for more than 48 hours, she denies any symptoms, no chest pain or dyspnea. No change in urine or bowel habits. No abdominal pain. No nausea vomiting. No fever Patient was eager to go home today stated that if she is not going to be discharged she was going to leave AMA, when I went to the room patient was already rest up and sitting at bed edge Patient was cleared for discharge by GI and hematology team Patient is been discharged on lactulose, iron pill, Pepcid, Protonix and short course of tapered benzodiazepine/Ativan for alcohol withdrawal as she confirms to me she is intending to quit drinking, I explained to her extensively she should avoid drinking alcohol while taking benzodiazepine, risks including but not limited to respiratory suppression and/or and she verbalized understanding and acceptance Also patient was instructed not to drive while under the loss of alcohol or benzodiazepine Problems and management plan were discussed with the patient and he verbalized understanding and acceptance Patient was found stable and can be discharged home however he needs follow-up as an outpatient. Patient was instructed to follow up with PCP Dr. Florence within one week and patient agrees. Patient also was instructed with network engineering advisor Dr. Arias in 3-[address] Torres in 2-3 weeks and she verbalized understanding and acceptance Physical exam Gen: patient is a AAOx3, no distress CVS: S1-S2, RRR, no murmur Lungs: B/L CTA, no wheezing Abdomen: soft, no distention, no tenderness, positive bowel sounds Extremity: no leg edema or induration Time spent more than 35 minutes Patient Condition at Discharge: Stable Plan - Discharge Summary Discharge Rx Participant: No New Discharge Prescriptions: New Lactulose [Cephulac] 30 gm PO TID 30 Days #1000 ml Ferrous Sulfate [Iron (65 MG Elemental)] 325 mg PO BID-W/MEALS #60 tab Famotidine [Pepcid] 40 mg PO HS #7 tab Pantoprazole Sodium [Protonix] 40 mg PO DAILY #30 tablet. LORazepam [Ativan] 0.5 mg PO DIRECTED 3 Days #4 tab Continue Folic Acid 1 mg PO DAILY #30 tab Atomoxetine HCl [Strattera] 60 mg PO DAILY levETIRAcetam [Keppra] 1,000 mg PO BID traMADol HCL 50 mg PO Q6H PRN PRN Reason: Pain Discharge Medication List Folic Acid 1 mg PO DAILY #30 tab 03/25/20 [Rx] Atomoxetine HCl [Strattera] 60 mg PO DAILY 08/07/20 [History] levETIRAcetam [Keppra] 1,000 mg PO BID 08/07/20 [History] traMADol HCL 50 mg PO Q6H PRN 09/20/20 [History] Famotidine [Pepcid] 40 mg PO HS #7 tab 09/25/20 [Rx] Ferrous Sulfate [Iron (65 MG Elemental)] 325 mg PO BID-W/MEALS #60 tab 09/25/20 [Rx] LORazepam [Ativan] 0.5 mg PO DIRECTED 3 Days #4 tab 09/25/20 [Rx] Lactulose [Cephulac] 30 gm PO TID 30 Days #1000 ml 09/25/20 [Rx] Pantoprazole Sodium [Protonix] 40 mg PO DAILY #30 tablet. 09/25/20 [Rx] Follow up Appointment(s)/Referral(s): Eddy Arias MD [STAFF PHYSICIAN] - 4 Weeks (Office closed today, please call and make an appointment Monday) Ludivina Doyle DO [REFERRING] - 1-2 Days (office closed, please call and make an appointment Monday) [facility], [NON-STAFF] - Jefry Hartley MD [STAFF PHYSICIAN] - 10/16/20 1:15 pm Patient Instructions/Handouts: Cirrhosis (DC), Alcohol Intoxication (DC), Abuse of Alcohol (DC), Pancytopenia (DC) Activity/Diet/Wound Care/Special Instructions: heart healthy diet activity is restricted till you see your doctor avoid drinking alcohol while taking ativan (benzodiazepine) risk including but not limited to respiratory suppression and Discharge Disposition: HOME WITH HOME HEALTH SERVICES
== END 2020-09-25 13:07 | disposition home health service (06) | DRG 433 ==
LOC: EC 18:20 → 4SSUR 19:58 → OBSVTOIN 09-21 09:41
PROVIDERS: ADMIT Hospitalist; ATTEND Hospitalist
PROC: 30233N1 Transfusion of Nonautologous Red Blood Cells into Peripheral Vein, Percutaneous Approach (ICD-10-PCS; principal; 2020-09-21)
PROC: 0DJ08ZZ Inspection of Upper Intestinal Tract, Via Natural or Artificial Opening Endoscopic (ICD-10-PCS; 2020-09-22)
DX: K70.40 Alcoholic hepatic failure without coma (principal); D61.818 Other pancytopenia; K76.6 Portal hypertension; K62.5 Hemorrhage of anus and rectum; F10.230 Alcohol dependence with withdrawal, uncomplicated; D69.59 Other secondary thrombocytopenia; K70.11 Alcoholic hepatitis with ascites; K70.31 Alcoholic cirrhosis of liver with ascites; F10.220 Alcohol dependence with intoxication, uncomplicated; G40.909 Epilepsy, unspecified, not intractable, without status epilepticus; Z20.822 Contact with and (suspected) exposure to COVID-19; K21.9 Gastro-esophageal reflux disease without esophagitis; F41.9 Anxiety disorder, unspecified; F90.9 Attention-deficit hyperactivity disorder, unspecified type; R04.0 Epistaxis; K31.89 Other diseases of stomach and duodenum; E87.6 Hypokalemia; R16.1 Splenomegaly, not elsewhere classified; Y90.8 Blood alcohol level of 240 mg/100 ml or more; Z79.899 Other long term (current) drug therapy; Z87.01 Personal history of pneumonia (recurrent); Z87.81 Personal history of (healed) traumatic fracture; Z87.440 Personal history of urinary (tract) infections; Z98.890 Other specified postprocedural states; Z87.891 Personal history of nicotine dependence; Z91.19 Patient's noncompliance with other medical treatment and regimen; Z91.410 Personal history of adult physical and sexual abuse; Z88.1 Allergy status to other antibiotic agents; Z88.0 Allergy status to penicillin; Z81.8 Family history of other mental and behavioral disorders
CPT/HCPCS: 36415; 43235; 76705; 80048; 80053; 80076; 80320; 81001; 81025; 82140; 82607; 82728; 82746; 82747; 83540; 83550; 83735; 83883; 83921; 84132; 84145; 84165; 84703; 85025; 85045; 85610; 85730; 86334; 86850; 86900; 86901; 86920; 87040; 87390; 87635; 93005; 96372; 96374; 96375; 99285

== ENCOUNTER 2020-11-06 23:23 | Inpatient (IN) | payer OTHER ==
[2020-11-06] MEDS ORDERED: LORazepam 2 MG/ML INJ IV PRN ×2 (23:49)
[2020-11-06] MEDS ORDERED: NALOXONE 0.4 MG/ML 1 ML VIAL IV PRN (23:56)
[2020-11-07] MEDS ORDERED: MAG HYDROX/AL HYDROX/SIMETH 30 ML CUP PO PRN (00:01)
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
[2020-11-07] MEDS: LORazepam 2 MG/ML INJ IV PRN ×5 (00:15→21:15)
[2020-11-07] MEDS: THIAMINE 100 MG TAB PO SCH ×3 (00:16→15:51)
[2020-11-07] MEDS: FAMOTIDINE 20 MG/2 ML VIAL IV SCH ×2 (01:06→12:35)
[2020-11-07] MEDS: SODIUM CHLORIDE 0.9% 1,000 ML IV SCH (01:10)
[2020-11-07] MEDS ORDERED: MORPHINE SULFATE 2 MG/ML SYRINGE IVP STA (01:50)
[2020-11-07] MEDS ORDERED: LACTULOSE 20 GM/30 ML CUP PO ONE (02:35)
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
[2020-11-07 07:48] LABS: ALT 31 U/L (4-34); AST 155 U/L (14-36); African American GFR (CKD) >90 (>60 ml/min/1.73 sqM); Albumin 3.5 g/dL (3.5-5.0); Albumin/Globulin Ratio 0.9; Alkaline Phosphatase 253 U/L (38-126); Anion Gap 9 mmol/L; Blood Urea Nitrogen 7 mg/dL (7-17); Calcium 7.8 mg/dL (8.4-10.2); Carbon Dioxide 28 mmol/L (22-30); Chloride 109 mmol/L (98-107); Glucose 100 mg/dL (74-99); Magnesium 1.6 mg/dL (1.6-2.3); Non-African American GFR(CKD) >90 (>60 ml/min/1.73 sqM); Potassium 3.3 mmol/L (3.5-5.1); Sodium 146 mmol/L (137-145); Total Bilirubin 2.3 mg/dL (0.2-1.3); Total Protein 7.5 g/dL (6.3-8.2)
[2020-11-07 07:49] LABS: Anisocytosis Slight; HCT 25.3 % (34.0-46.0); HGB 8.3 gm/dL (11.4-16.0); Hypochromasia Slight; MCHC 32.6 g/dL (31.0-37.0); Macrocytosis Slight; Mean Platelet Volume 8.7; RDW 16.6 % (11.5-15.5); WBC 2.1 k/uL (3.8-10.6)
[2020-11-07 07:51] LABS: MCV 101.1 fL (80.0-100.0)
[2020-11-07 08:06] LABS: Platelet Count 28 k/uL (150-450)
[2020-11-07] MEDS: LACTULOSE 20 GM/30 ML CUP PO SCH ×3 (08:47→21:28)
[2020-11-07] MEDS: PANTOPRAZOLE 40 MG TABLET PO SCH (08:47)
[2020-11-07] MEDS: levETIRAcetam 500 MG TAB PO SCH ×2 (08:47→21:28)
[2020-11-07] MEDS: FOLIC ACID 1 MG TAB PO SCH (08:47)
[2020-11-07] MEDS: FERROUS SULFATE 325 MG TAB PO SCH ×2 (08:47→15:51)
[2020-11-07] MEDS: PROMETHAZINE 25 MG TAB PO PRN (21:27)
[2020-11-08] MEDS: LORazepam 2 MG/ML INJ IV PRN ×6 (00:19→21:01)
[2020-11-08] MEDS: SODIUM CHLORIDE 0.9% 1,000 ML IV SCH (04:19)
[2020-11-08] MEDS: LACTULOSE 20 GM/30 ML CUP PO SCH ×3 (09:12→20:56)
[2020-11-08] MEDS: PANTOPRAZOLE 40 MG TABLET PO SCH (09:14)
[2020-11-08] MEDS: FERROUS SULFATE 325 MG TAB PO SCH ×2 (09:14→15:22)
[2020-11-08] MEDS: THIAMINE 100 MG TAB PO SCH ×2 (09:14→15:22)
[2020-11-08] MEDS: FOLIC ACID 1 MG TAB PO SCH (09:14)
[2020-11-08] MEDS: levETIRAcetam 500 MG TAB PO SCH ×2 (09:15→20:56)
[2020-11-08 13:19] LABS: Basophils % (A) 1 %; Eosinophils # (A) 0.1 k/uL (0-0.7); Eosinophils % (A) 3 %; HCT 25.2 % (34.0-46.0); HGB 8.7 gm/dL (11.4-16.0); Hypochromasia Slight; Lymphocytes # (A) 0.4 k/uL (1.0-4.8); Lymphocytes % (A) 20 %; MCH 33.9 pg (25.0-35.0); MCHC 34.4 g/dL (31.0-37.0); MCV 98.7 fL (80.0-100.0); Macrocytosis Slight; Mean Platelet Volume 11.3; Monocytes # (A) 0.2 k/uL (0-1.0); Monocytes % (A) 12 %; Neutrophils # (A) 1.1 k/uL (1.3-7.7); Neutrophils % (A) 61 %; RBC 2.55 m/uL (3.80-5.40); RDW 15.9 % (11.5-15.5); WBC 1.9 k/uL (3.8-10.6)
[2020-11-08 13:33] LABS: Platelet Count 27 k/uL (150-450)
[2020-11-08 13:39] LABS: ALT 27 U/L (4-34); AST 137 U/L (14-36); African American GFR (CKD) >90 (>60 ml/min/1.73 sqM); Albumin 3.6 g/dL (3.5-5.0); Albumin/Globulin Ratio 0.9; Alkaline Phosphatase 243 U/L (38-126); Anion Gap 8 mmol/L; Blood Urea Nitrogen 6 mg/dL (7-17); Calcium 8.2 mg/dL (8.4-10.2); Carbon Dioxide 26 mmol/L (22-30); Chloride 105 mmol/L (98-107); Globulin 4.2 g/dL; Glucose 105 mg/dL (74-99); Magnesium 1.4 mg/dL (1.6-2.3); Non-African American GFR(CKD) >90 (>60 ml/min/1.73 sqM); Phosphorus 3.8 mg/dL (2.5-4.5); Potassium 3.3 mmol/L (3.5-5.1); Sodium 139 mmol/L (137-145); Total Bilirubin 3.9 mg/dL (0.2-1.3); Total Protein 7.8 g/dL (6.3-8.2)
[2020-11-08] MEDS ORDERED: POTASSIUM CHLORIDE ER 20 MEQ TAB.ER PO STA (15:08)
[2020-11-08] MEDS: MAGNESIUM SULFATE-D5W PMX 1 GM in DEXTROSE/WATER 1 100ML.BAG IVPB SCH ×4 (15:19→21:58)
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
[2020-11-08] MEDS ORDERED: ACETAMINOPHEN TAB 325 MG TAB PO PRN (20:24)
[2020-11-09] MEDS: LORazepam 2 MG/ML INJ IV PRN ×3 (01:05→14:39)
[2020-11-09] MEDS: SODIUM CHLORIDE 0.9% 1,000 ML IV SCH (01:06)
[2020-11-09] MEDS: PANTOPRAZOLE 40 MG TABLET PO SCH (08:17)
[2020-11-09] MEDS: THIAMINE 100 MG TAB PO SCH ×2 (08:17→17:19)
[2020-11-09] MEDS: FERROUS SULFATE 325 MG TAB PO SCH ×2 (08:17→17:19)
[2020-11-09] MEDS: FOLIC ACID 1 MG TAB PO SCH (08:17)
[2020-11-09] MEDS: LACTULOSE 20 GM/30 ML CUP PO SCH ×3 (08:17→22:01)
[2020-11-09] MEDS: levETIRAcetam 500 MG TAB PO SCH ×2 (08:19→20:31)
[2020-11-09 10:03] LABS: African American GFR (CKD) 141.8 (60.0-200.0); Albumin 3.2 g/dL (3.80-4.90); Albumin/Globulin Ratio 0.84 (1.60-3.17); Anion Gap 6.6 mmol/L (4.00-12.00); Calcium 7.8 mg/dL (8.7-10.3); Carbon Dioxide 25.4 mmol/L (21.6-31.8); Globulin 3.8 g/dL (1.6-3.3); Magnesium 1.8 mg/dL (1.5-2.4); Non-African American GFR(CKD) 122.3 (60.0-200.0); Phosphorus 3.7 mg/dL (2.4-5.1); Total Bilirubin 3.8 mg/dL (0.3-1.2)
--- NOTE | 2020-11-09 10:12 | US ---
EXAMINATION TYPE: US abdomen limited DATE OF EXAM: 11/09/2020 COMPARISON: 09/22/2020 CLINICAL HISTORY: 30-year-old female ascites, assess for fluid pocket please. TECHNIQUE: Multiple sonographic images of the 4 abdominal quadrants for assessment of ascites. FINDINGS: No fluid visualized. IMPRESSION: No abdominal ascites visualized.
[2020-11-09 10:29] LABS: INR 1.5 (<1.2); Prothrombin Time 14.8 sec (9.0-12.0)
[2020-11-09 10:41] LABS: Basophils # (A) 0.02 X 10*3/uL (0.00-0.10); Basophils % (A) 0.9 %; Eosinophils # (A) 0.06 X 10*3/uL (0.04-0.35); Eosinophils % (A) 2.8 %; HCT 24.8 % (37.2-46.3); HGB 7.7 g/dL (12.0-15.0); Lymphocytes # (A) 0.46 X 10*3/uL (0.90-5.00); Lymphocytes % (A) 21.3 %; MCH 32.2 pg (27.0-32.0); MCV 103.8 fL (80.0-97.0); Mean Platelet Volume 11.5 fL (9.5-12.2); Monocytes % (A) 18.5 %; Neutrophils # (A) 1.21 X 10*3/uL (1.80-7.70); Platelet Count 29 X 10*3/uL (140-440); RBC 2.39 X 10*6/uL (4.10-5.20); RDW 15.3 % (11.5-14.5); WBC 2.16 X 10*3/uL (4.50-10.00)
[2020-11-09] MEDS ORDERED: Potassium Replacement Protocol 1 EACH MISC MISCELLANE PRN (10:55)
[2020-11-09] MEDS: POTASSIUM CHLORIDE ER 20 MEQ TAB.ER PO SCH ×4 (11:10→18:57)
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
--- NOTE | 2020-11-09 14:33 | P.PN ---
Subjective Progress Note Date: 11/09/20 Principal diagnosis: liver cirrhosis Patient had 100.8 fever last night. Otherwise she does not have any complaints. No cough, pain or shortness of breath. Objective - Vital Signs Vital signs: Vital Signs Temp 97.7 F 11/09/20 12:07 Pulse 109 H 11/09/20 12:07 Resp 17 11/09/20 12:07 BP 113/64 11/09/20 12:07 Pulse Ox 96 11/09/20 12:07 Intake & Output 11/08/20 11/09/20 11/09/20 18:59 06:59 18:59 Intake Total 220 480 Balance 220 480 Intake: Intake, IV Titration 220 Amount Magnesium Sulfate-D5w Pmx 200 1 gm In Dextrose/Water 1 100ml.bag @ 100 mls/hr IVPB Q1H CE Rx#: [id number] Sodium Chloride 0.9% 1, 20 000 ml @ 20 mls/hr IV . Q24H CE Rx#:[id number] Oral 480 Other: Voiding Method Toilet # Voids 3 # Bowel Movements 3 - Exam General: non toxic, no distress, appears older than stated age, normal weight Derm: no unusual rashes/lesions no unusual ecchymoses, warm, dry Head: atraumatic, normocephalic, symmetric Eyes: EOMI, no lid lag, anicteric sclera, pupils equal round reactive to light ENT: Nose and ears atraumatic, no thrush, no pharyngeal erythema Neck: No thyromegaly, no cervical lymphadenopathy, trachea midline, supple Mouth: no lip lesion, mucus membranes moist Cardiovascular: S1S2 reg, no murmur, positive posterior tibial pulse bilateral, no edema, capillary refill less than 2 seconds Lungs: CTA bilateral, no rhonchi, no rales , no accessory muscle use Abdominal: soft, distended, nontender to palpation, no guarding, no appreciable organomegaly, normal bowel sounds Ext: no gross muscle atrophy, muscle strength 5 out of 5 in all 4 extremities grossly, no contractures, Neuro: CN II-XI grossly intact, light touch intact all 4 extremities, finger to nose within normal limits, no asterixis Psych: Alert, oriented, appropriate affect - Labs CBC & Chem 7: 11/09/20 06:17 11/09/20 06:17 Labs: Abnormal Lab Results - Last 24 Hours (Table) 11/09/20 11/09/20 11/09/20 Range/Units 06:17 06:17 09:58 WBC 2.16 L (4.50-10.00) X 10*3/uL RBC 2.39 L (4.10-5.20) X 10*6/uL Hgb 7.7 L (12.0-15.0) g/dL Hct 24.8 L (37.2-46.3) % MCV 103.8 H (80.0-97.0) fL MCH 32.2 H (27.0-32.0) pg MCHC 31.0 L (32.0-37.0) g/dL RDW 15.3 H (11.5-14.5) % Plt Count 29 L (140-440) X 10*3/uL Plt Count Comment A Neutrophils # 1.21 L (1.80-7.70) X 10*3/uL Lymphocytes # 0.46 L (0.90-5.00) X 10*3/uL Immature Plt Fraction 10.5 H (1.1-6.1) % PT 14.8 H (9.0-12.0) sec INR 1.5 H (<1.2) Potassium 3.0 L (3.5-5.5) mmol/L BUN 6.0 L (9.0-27.0) mg/dL BUN/Creatinine Ratio 10.00 L (12.00-20.00) Ratio Calcium 7.8 L (8.7-10.3) mg/dL Total Bilirubin 3.8 H (0.3-1.2) mg/dL AST 91 H (13-35) U/L Alkaline Phosphatase 211 H (41-126) U/L Albumin 3.20 L (3.80-4.90) g/dL Globulin 3.8 H (1.6-3.3) g/dL Albumin/Globulin Ratio 0.84 L (1.60-3.17) g/dL Assessment and Plan Plan: Alcohol withdrawal -CIWA protocol, has not been getting any benzos -Thiamine, folic acid, multivitamin -Continue with IV fluids Elevated ammonia -Continue on lactulose Fever -Stat CXR and UA ETOH abuse -Psych recommending acamprosate, will initiate. Abominal pain and distension -Continue PPI -Abdominal u/s showing no fluids amenable for paracentesis. Leukopenia -Likely sec to ETOH, counseled to quit Anemia Likely sec to chronic disease, negative work up in the past except for iron deficiency but MCV is high Continue to monitor Hypomagnesemia and hypokalemia -Continue to replace Thrombocytopenia, likely secondary to alcohol abuse -Monitor for now DVT prophylaxis -IPCDs Discussed with: patient, care management Anticipated discharge date: [address]: Care management to look into discharge options
--- NOTE | 2020-11-09 15:07 | XR ---
EXAMINATION TYPE: XR chest 2V DATE OF EXAM: 11/09/2020 COMPARISON: Chest x-ray 08/07/2020 HISTORY: Fever TECHNIQUE: Frontal and lateral views of the chest are obtained. FINDINGS: Patchy right basilar density is suspected. There are overlying artifacts. No pneumothorax or pleural effusion. Cardiac mediastinal silhouette is within normal limits. There is a slight spinal curvature. IMPRESSION: Correlate for pneumonia.
[2020-11-09] MEDS ORDERED: Magnesium Replacement Protocol 1 EACH MISC MISCELLANE PRN (15:47)
[2020-11-09] MEDS: ACAMPROSATE CALCIUM 333 MG TABLET.DR PO SCH ×2 (17:19→22:14)
[2020-11-09] MEDS: MAGNESIUM SULFATE-D5W PMX 1 GM in DEXTROSE/WATER 1 100ML.BAG IVPB SCH ×2 (17:19→18:57)
[2020-11-09] MEDS ORDERED: LEVOFLOXACIN 500 MG TAB PO SCH (19:00)
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
[2020-11-09] MEDS: CLINDAMYCIN 150 MG CAP PO SCH ×2 (20:02→22:14)
[2020-11-09] MEDS ORDERED: MELATONIN 5 MG TABLET PO SCH (21:00)
[2020-11-09] MEDS: PROMETHAZINE 25 MG TAB PO PRN (22:13)
[2020-11-09 22:44] LABS: Appearance,Urine Clear (Clear); Bilirubin,Urine 1+ (Negative); Blood,Urine Moderate (Negative); Color,Urine Yellow; Glucose,Urine (UA) Negative (Negative); Ketones,Urine Negative (Negative); Leukocyte Esterase,Urine Negative (Negative); Mucus,Urine Rare /hpf; Nitrite,Urine Negative (Negative); Protein,Urine 1+ (Negative); RBC,Urine 8 /hpf (0-5); Specific Gravity,Urine 1.014 (1.001-1.035); Squamous Epithelial Cell,Urine 1 /hpf (0-4); WBC,Urine 1 /hpf (0-5)
[2020-11-10] MEDS: SODIUM CHLORIDE 0.9% 1,000 ML IV SCH (00:27)
[2020-11-10] MEDS ORDERED: ACAMPROSATE CALCIUM 333 MG TABLET.DR PO SCH (09:00)
[2020-11-10] MEDS: LACTULOSE 20 GM/30 ML CUP PO SCH (10:01)
[2020-11-10] MEDS: PANTOPRAZOLE 40 MG TABLET PO SCH (10:01)
[2020-11-10] MEDS: THIAMINE 100 MG TAB PO SCH (10:01)
[2020-11-10] MEDS: levETIRAcetam 500 MG TAB PO SCH (10:02)
[2020-11-10] MEDS: FOLIC ACID 1 MG TAB PO SCH (10:02)
[2020-11-10] MEDS: FERROUS SULFATE 325 MG TAB PO SCH (10:02)
[2020-11-10] MEDS: CLINDAMYCIN 150 MG CAP PO SCH (10:03)
[2020-11-10 10:22] LABS: African American GFR (CKD) 141.8 (60.0-200.0); Albumin 3.3 g/dL (3.80-4.90); Albumin/Globulin Ratio 0.92 (1.60-3.17); Anion Gap 6.9 mmol/L (4.00-12.00); Carbon Dioxide 22.1 mmol/L (21.6-31.8); Globulin 3.6 g/dL (1.6-3.3); Magnesium 1.7 mg/dL (1.5-2.4); Non-African American GFR(CKD) 122.3 (60.0-200.0); Phosphorus 3.2 mg/dL (2.4-5.1); Potassium 3.4 mmol/L (3.5-5.5); Total Bilirubin 3.2 mg/dL (0.2-1.2); Total Protein 6.9 g/dL (6.2-8.2)
--- NOTE | 2020-11-10 10:29 | P.PN ---
Progress Note - Text Progress Note Date: 11/10/20 Interval History: Patient was seen today for psychiatric follow-up regarding patient's alcohol use and withdrawal. Patient was started yesterday on acamprosate and Librium for alcohol withdrawal and also melatonin. Patient was seen at the bedside and claims that she slept fairly last night however states that she was awoken several times by the beeping from the IV machine. She states that today she is feeling better in terms of her mood and anxiety. She claims that she was likely either go to a rehab in [place] or [place] and states that her roommate and the outreach and education social worker about helping her with it. She claims that she has to do some minor things back home and see her daughter before she goes. She claims that her cravings have improved today for the alcohol and wants to remain on acamprosate. She is denying any paranoia or any delusions today. She claims a fair appetite. At this time patient denies any suicidal or homical ideations, intent or plan. Patient denies any auditory, visual hallucinations. Patient denies any side effects from the medications and has been compliant with meds. Mental Status Exam: General Appearance: Patient appears to be overweight, stated age is alert, directable, and attempts to be cooperative. Patient appears to have improving hygiene and grooming wearing hospital gown with fair eye contact. Behavior: Patient is calmly lying in bed without any agitated behavior. Directable Speech: Patient's speech is fluent and nonpressured. Mood/Affect: Patient reports their mood is "better", affect is congruent Suicidality/Homicidality: Patient denies having any suicidal or homicidal ideation intent or plan. Perceptions: Patient denies any visual hallucinations and denies any auditory hallucinations Though content/process: There is no evidence of any delusional thought content and thought process is linear and goal-directed. Memory and concentration: AOX3, grossly intact for the purposes of this session Judgment and insight: Improving Assessment Alcohol use disorder, severe, currently in withdrawal History of seizure disorder Plan: -At this time patient DOES NOT meet criteria for inpatient psychiatric admission. -Would recommend the following medication changes/additions: Continue with acamprosate 666 mg 3 times a day for alcohol cravings. Melatonin 5 mg daily at bedtime for insomnia/sleep. Librium 20 mg 3 times a day for alcohol withdrawal, this can be tapered off prior to discharge. -CIWA protocol with PRN Ativan for alcohol withdrawal. Continue to monitor vital signs. -She will be following up with [facility] upon discharge in [place]. -Enrollment Management Coordinator spoke with patient about substance abuse and the harmful effects on medical and mental health, patient verbally understood and agreed. -silk worker to provide patient substance use treatment resources including AA/NA meetings in the community. -silk worker to provide patient with access line number to call for inpatient substance rehab. At this time patient is interested in going to a rehab in [place] or [place]. -Psychiatry will sign off at this time. -Please contact with any questions.
[2020-11-10 11:42] LABS: Basophils # (A) 0.04 X 10*3/uL (0.00-0.10); Basophils % (A) 1.8 %; Eosinophils # (A) 0.07 X 10*3/uL (0.04-0.35); Eosinophils % (A) 3.1 %; HCT 25.1 % (37.2-46.3); HGB 7.8 g/dL (12.0-15.0); Lymphocytes # (A) 0.46 X 10*3/uL (0.90-5.00); Lymphocytes % (A) 20.2 %; MCH 32.8 pg (27.0-32.0); MCHC 31.1 g/dL (32.0-37.0); MCV 105.5 fL (80.0-97.0); Mean Platelet Volume 12.4 fL (9.5-12.2); Monocytes # (A) 0.31 X 10*3/uL (0.20-1.00); Monocytes % (A) 13.6 %; Neutrophils # (A) 1.39 X 10*3/uL (1.80-7.70); Neutrophils % (A) 60.9 %; Platelet Count 34 X 10*3/uL (140-440); RBC 2.38 X 10*6/uL (4.10-5.20); RDW 15.7 % (11.5-14.5); WBC 2.28 X 10*3/uL (4.50-10.00)
[2020-11-10] MEDS ORDERED: Potassium Replacement Protocol 1 EACH MISC MISCELLANE PRN (11:56)
[2020-11-10] MEDS ORDERED: Magnesium Replacement Protocol 1 EACH MISC MISCELLANE PRN (11:57)
[2020-11-10] MEDS ORDERED: MAGNESIUM SULFATE-D5W PMX 1 GM in DEXTROSE/WATER 1 100ML.BAG IVPB SCH (12:00)
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
[2020-11-10 12:37] VITALS: BP 109/68; PULSE 113; RESP 19; TEMP 98.5
[2020-11-10] MEDS: POTASSIUM CHLORIDE ER 20 MEQ TAB.ER PO SCH (13:12)
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
== END 2020-11-10 15:50 | disposition home or self-care (01) | DRG 896 ==
LOC: EC 23:23 → 5NMEDONC 11-07 00:05
PROVIDERS: ADMIT Internal Medicine; ATTEND Internal Medicine
DX: F10.239 Alcohol dependence with withdrawal, unspecified (principal); J69.0 Pneumonitis due to inhalation of food and vomit; D61.818 Other pancytopenia; K76.6 Portal hypertension; D68.4 Acquired coagulation factor deficiency; Y90.8 Blood alcohol level of 240 mg/100 ml or more; F90.9 Attention-deficit hyperactivity disorder, unspecified type; F41.9 Anxiety disorder, unspecified; Z87.891 Personal history of nicotine dependence; Z20.822 Contact with and (suspected) exposure to COVID-19; F10.229 Alcohol dependence with intoxication, unspecified; K29.20 Alcoholic gastritis without bleeding; E83.42 Hypomagnesemia; D69.59 Other secondary thrombocytopenia; K70.30 Alcoholic cirrhosis of liver without ascites; G40.909 Epilepsy, unspecified, not intractable, without status epilepticus; K72.90 Hepatic failure, unspecified without coma; D73.1 Hypersplenism; K70.10 Alcoholic hepatitis without ascites
CPT/HCPCS: 36415; 71046; 76705; 80053; 80320; 81001; 82140; 83735; 84100; 84132; 85025; 85027; 85610; 87324; 87635; 96374; 96375; 99285

== ENCOUNTER 2021-02-09 20:15 | Inpatient (IN) | payer OTHER ==
[2021-02-09] MEDS ORDERED: NALOXONE 0.4 MG/ML 1 ML VIAL IV PRN (20:48)
--- NOTE | 2021-02-09 21:01 | ED ---
General Adult HPI - General Chief complaint: Abdominal Pain Stated complaint: liver failure Time Seen by Provider: 02/09/21 20:25 Source: EMS Mode of arrival: EMS Limitations: no limitations - History of Present Illness Initial comments: Janette is a 30-year-old female with history of alcohol abuse who presents to our emergency department by ambulance from an outside facility. Patient presented to the outside facility for dark stools generalized malaise. Patient has a history of alcohol abuse with liver failure. She has had multiple hospitalizations. She was recently hospitalized at [facility] for GI bleed requiring transfusion during that hospitalization she had acute alcohol withdrawal requiring intubation. Since being discharged home the patient has resumed drinking alcohol though she reports drinking much less. Her last drink was earlier today. Patient presented to the outside hospital she is found to be profoundly jaundiced with multiple grossly abnormal labs including acute kidney injury, hypokalemia, bilirubin that was undetectably high. She is also found on physical exam to have ascites. Patient would like to have paracentesis. - Related Data Home Medications Medication Instructions Recorded Confirmed levETIRAcetam [Keppra] 1,000 mg PO BID 08/07/11/07/20 Previous Rx's Medication Instructions Recorded Acamprosate Calcium [Campral] 666 mg PO TID 30 Days #90 tablet. 11/10/20 Clindamycin [Cleocin] 450 mg PO TID 7 Days #21 cap 11/10/20 Ferrous Sulfate [Iron (65 MG 325 mg PO BID-W/MEALS 30 Days #60 11/10/20 Elemental)] tab Folic Acid 1 mg PO DAILY 90 Days #90 tab 11/10/20 Lactulose [Cephulac] 30 gm PO TID 30 Days ml 11/10/20 Levofloxacin [Levaquin] 500 mg PO Q24H 7 Days #7 tab 11/10/20 Pantoprazole [Protonix] 40 mg PO AC-BRKFST 30 Days #30 11/10/20 tablet. Potassium Chloride ER [K-Dur 10] 10 meq PO DAILY 30 Days #30 tab 11/10/20 Thiamine [Vitamin B-1] 100 mg PO BID-W/MEALS 90 Days #90 11/10/20 tab chlordiazePOXIDE HCl [Librium] 10 mg PO TID #0 cap 11/10/20 Allergies Allergy/AdvReac Type Severity Reaction Status Date / Time ceftriaxone Allergy Anaphylaxis Verified 02/09/21 20:25 Penicillins Allergy Rash/Hives Verified 02/09/21 20:25 Review of Systems ROS Statement: Those systems with pertinent positive or pertinent negative responses have been documented in the HPI. ROS Other: All systems not noted in ROS Statement are negative. Past Medical History Past Medical History: GERD/Reflux, Liver Disease, Pneumonia, Seizure Disorder Additional Past Medical History / Comment(s): alcohol abuse/acute hepatic encephalopathy/end stage liver disease/ascitis with paracentesis/thrombocytopenia/hypomagnesemia. Other HX: Last seizure , bronchitis, sepsis in 2013, UTI, cholecystitis, pancytopenia, chronic anemia, pancreatitis, liver failure r/t ETOH abuse. intubated due to detox from ETOH. History of Any Multi-Drug Resistant Organisms: None Reported Past Surgical History: Section, Orthopedic Surgery Additional Past Surgical History / Comment(s): R ankle surgery d/t fracture, R foot surgery-pt cannot recall cause, C-diff 12/18/2020 Past Anesthesia/Blood Transfusion Reactions: No Reported Reaction, Motion S ickness Additional Past Anesthesia/Blood Transfusion Reaction / Comment(s): Pt has received blood in past without reaction. Past Psychological History: ADD/ADHD, Anxiety Smoking Status: Former smoker Past Alcohol Use History: Abuse, Daily, Heavy Past Drug Use History: None Reported - Past Family History Father Family Medical History: No Reported History Additional Family Medical History / Comment(s): anxiety Mother Family Medical History: No Reported History Additional Family Medical History / Comment(s): Mother is healthy General Exam - General Exam Comments Initial Comments: Physical Exam GENERAL: ill-appearing jaundiced female HENT: Normocephalic, Atraumatic. EYES: scleral icterus PULMONARY: Unlabored respirations. CARDIOVASCULAR: RRR ABDOMEN: Fluid wave SKIN: Jaundice : Deferred NEUROLOGIC: Alert and oriented Poor historian MUSCULOSKELETAL: Moving all extremities with no apparent injury PSYCHIATRIC: No SI/HI Limitations: no limitations Course Vital Signs 02/09/21 02/09/21 20:18 21:18 Temperature 99.0 F Pulse Rate 92 95 Respiratory 18 18 Rate Blood Pressure 109/59 106/58 O2 Sat by Pulse 100 100 Oximetry Medical Decision Making - Medical Decision Making Patient was seen and evaluated, history was obtained from patient outside facility as well as review of medical record 30-year-old alcoholic female last Intake Was Earlier Today about Call Was Negative at outside Facility Patient Is in Acute Hepatorenal Syndrome, She Has Liver Failure with a Bilirubin Higher Than Detectable on Labs, She Has Kidney Injury with a Creatinine of 2, Hypokalemia Patient has a mild score of 36 with an estimated 3 month mortality of 52.6% At this time patient will be admitted to the hospital consults to social work, GI, IR for paracentesis and concern for pulmonary into hospice Disposition Clinical Impression: Seizure disorder, ETOH abuse, Liver failure, Hepatorenal syndrome, Coagulopathy, Hypokalemia, Jaundice, Ascites Disposition: ADMITTED IP TO THIS HOSP Condition: Critical Referrals: Robert Salazar MD [Primary Care Provider] - 1-2 days
[2021-02-09] MEDS ORDERED: LORazepam 2 MG/ML INJ IV PRN ×3 (21:12)
[2021-02-09] MEDS ORDERED: THIAMINE 100 MG/ML 2 ML VIAL IM STA (21:12)
[2021-02-09] MEDS ORDERED: levETIRAcetam 500 MG TAB PO STA (21:23)
[2021-02-09] MEDS ORDERED: hydrOXYzine HCL 25 MG TAB PO STA (21:23)
[2021-02-09 21:40] LABS: Anisocytosis Slight; HCT 23.5 % (34.0-46.0); Hypochromasia Slight; MCH 36.6 pg (25.0-35.0); MCHC 34.1 g/dL (31.0-37.0); MCV 107.2 fL (80.0-100.0); Macrocytosis Marked; Mean Platelet Volume 6.7; Platelet Count 116 k/uL (150-450); Poikilocytosis Slight; RBC 2.19 m/uL (3.80-5.40); RDW 19.3 % (11.5-15.5)
[2021-02-09 21:41] LABS: Lactic Acid, Venous 1.4 mmol/L (0.7-2.0)
[2021-02-09 22:06] LABS: Albumin 2.8 g/dL (3.5-5.0); Calcium 8.8 mg/dL (8.4-10.2); Potassium 3.3 mmol/L (3.5-5.1); Total Protein 7.3 g/dL (6.3-8.2)
[2021-02-09 22:13] LABS: Total Bilirubin 38.8 mg/dL (0.2-1.3)
[2021-02-09 22:35] LABS: Nucleated Red Blood Cells 0 /100 WBC (0-0)
[2021-02-09 22:36] LABS: Eosinophils # (M) 0.09 k/uL (0-0.7); Lymphocytes # (M) 0.81 k/uL (1.0-4.8); Metamyelocytes # (M) 0.18 k/uL (0); Metamyelocytes % 2 %; Monocytes # (M) 0.99 k/uL (0-1.0); Neutrophils # (M) 6.93 k/uL (1.3-7.7); Neutrophils % (M) 77 %; Total Cells Counted 100
[2021-02-09 22:37] LABS: RBC Fragments Present; Tear Drop Cells Present
[2021-02-10] MEDS: PANTOPRAZOLE 40 MG/10 ML VIAL IVP SCH ×3 (00:32→20:29)
[2021-02-10 00:48] LABS: Anisocytosis Slight; HCT 23.3 % (34.0-46.0); HGB 8.3 gm/dL (11.4-16.0); Hypochromasia Moderate; MCH 38.3 pg (25.0-35.0); MCHC 35.4 g/dL (31.0-37.0); MCV 108.1 fL (80.0-100.0); Macrocytosis Marked; Mean Platelet Volume 7.6; Platelet Count 115 k/uL (150-450); Poikilocytosis Slight; RBC 2.16 m/uL (3.80-5.40); RDW 18.5 % (11.5-15.5); WBC 8.2 k/uL (3.8-10.6)
[2021-02-10] MEDS: 0.9% NACL WITH KCL 20 MEQ/L 1,000 ML IV SCH ×2 (01:09→20:37)
[2021-02-10 01:28] LABS: Anisocytosis (M) Present; Basophils # (M) 0.08 k/uL (0-0.2); Eosinophils # (M) 0.16 k/uL (0-0.7); Lymphocytes # (M) 0.82 k/uL (1.0-4.8); Monocytes # (M) 0.74 k/uL (0-1.0); Neutrophils % (M) 78 %; Nucleated Red Blood Cells 0 /100 WBC (0-0); Total Cells Counted 100
[2021-02-10 01:29] LABS: Polychromasia Present; RBC Fragments Present; Tear Drop Cells Present
[2021-02-10] MEDS: MORPHINE SULFATE 2 MG/ML SYRINGE IVP PRN (01:45)
[2021-02-10] MEDS: ONDANSETRON 4 MG/2 ML VIAL IVP PRN ×4 (01:45→23:14)
[2021-02-10] MEDS: THIAMINE 100 MG TAB PO SCH ×2 (07:41→16:59)
[2021-02-10 09:35] LABS: INR 2.6 (<1.2); Prothrombin Time 24.8 sec (9.0-12.0)
--- NOTE | 2021-02-10 09:37 | US ---
EXAMINATION TYPE: US abdomen limited DATE OF EXAM: 02/10/2021 COMPARISON: US CLINICAL HISTORY: to assess for fluid pocket please. Cirrhosis per patient; severe jaundice RLQ Transverse ascites pocket: 5.2cm A/P LLQ Transverse ascites pocket: 5.3cm A/P IMPRESSION: 1. Pockets of fluid in the right lower quadrant and left lower quadrant were seen, as described above .
[2021-02-10] MEDS ORDERED: PHYTONADIONE 10 MG in SODIUM CHLORIDE 0.9% 50 ML IVPB STA (09:42)
[2021-02-10] MEDS: RIFAXIMIN 550 MG TABLET PO SCH ×2 (10:28→20:29)
[2021-02-10] MEDS: LACTULOSE 20 GM/30 ML CUP PO SCH ×3 (11:32→21:32)
[2021-02-10] MEDS: MIDODRINE 5 MG TAB PO SCH (12:04)
[2021-02-10 13:28] LABS: African American GFR (CKD) 33.7 (60.0-200.0); Anion Gap 10.3 mmol/L (4.00-12.00); BUN/Creat Ratio 4.55 Ratio (12.00-20.00); Calcium 8.2 mg/dL (8.7-10.3); Carbon Dioxide 15.7 mmol/L (21.6-31.8); Non-African American GFR(CKD) 29.1 (60.0-200.0); Potassium 3.9 mmol/L (3.5-5.5)
[2021-02-10 14:19] LABS: Basophils # (A) 0.03 X 10*3/uL (0.00-0.10); Basophils % (A) 0.4 %; Eosinophils # (A) 0.12 X 10*3/uL (0.04-0.35); Eosinophils % (A) 1.6 %; HCT 21.3 % (37.2-46.3); HGB 7.1 g/dL (12.0-15.0); Lymphocytes # (A) 0.69 X 10*3/uL (0.90-5.00); Lymphocytes % (A) 8.9 %; MCH 36.2 pg (27.0-32.0); MCHC 33.3 g/dL (32.0-37.0); MCV 108.7 fL (80.0-97.0); Mean Platelet Volume 11.1 fL (9.5-12.2); Monocytes # (A) 0.98 X 10*3/uL (0.20-1.00); Monocytes % (A) 12.7 %; Neutrophils # (A) 5.68 X 10*3/uL (1.80-7.70); Neutrophils % (A) 73.4 %; Platelet Count 97 X 10*3/uL (140-440); RBC 1.96 X 10*6/uL (4.10-5.20); RDW 17.8 % (11.5-14.5); WBC 7.73 X 10*3/uL (4.50-10.00)
[2021-02-10 14:20] LABS: Acanthocytes 2+; Anisocytosis (M) 2+; Macrocytosis (M) 2+
--- NOTE | 2021-02-10 14:41 | CONS ---
CONSULTATION REASON FOR CONSULT: Renal failure. HISTORY OF PRESENT ILLNESS: The patient is a 30-year-old female with history of chronic liver disease secondary to ETOH abuse, who was admitted to the hospital with complaints of malaise and not feeling well. Patient has apparently been under the care of hospice previously and has taken her off hospice due to need for continued alcohol consumption. Blood pressure this admission has been low with systolic in the 80s to 90s. Patient's serum creatinine was 1.87 yesterday. I do not have any labs from today. Previous labs show serum creatinine 0.6 on 11/10/2020. It is unclear if the patient is making adequate urine. However, she states that she has been voiding. I do not see any NSAIDs on her home med list. PAST MEDICAL HISTORY: Chronic liver disease, ETOH abuse, seizure disorder, gastroesophageal reflux disease, history of hepatic encephalopathy, thrombocytopenia, hypomagnesemia, bronchitis, chronic anemia, history of hypoxic respiratory failure, history of pancreatitis. PAST SURGICAL HISTORY: , right ankle surgery due to fracture, foot surgery. SOCIAL HISTORY: Positive for smoking and alcohol abuse. MEDICATIONS: Medications prior to admission included: Keppra, Cleocin, folic acid, Cephulac, Levaquin, Protonix, potassium, vitamin B, Librium. ALLERGIES: INCLUDE CEFTRIAXONE, PENICILLIN. REVIEW OF SYSTEMS: As per HPI. Other systems negative. EXAMINATION: Comfortable, awake. She is not in any acute distress. She seems confused. Blood pressure 95/50, heart rate 98 per minute. She is afebrile. Examination of lower extremities shows no evidence of edema. Abdomen is soft, nontender. 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 She is having some tremors. LAB: Show sodium 136, potassium 3.3, chloride 107, CO2 17, BUN 9, serum creatinine 1.87 with hemoglobin 38.8. Coronavirus PCR positive. ASSESSMENT: 1. Acute kidney injury, acute tubular necrosis and prerenal, mostly with low blood pressure and volume depletion. I will increase the IV fluids and check accurate I and Os to monitor urine output. There may be a component of acute tubular necrosis from underlying coronavirus infection. 2. Hypokalemia secondary to decreased oral intake. We will replace. 3. Chronic liver disease secondary to EtOH abuse. 4. Significant hyperbilirubinemia. 5. Coagulopathy with underlying chronic liver disease. 6. Anemia, multifactorial. PLAN: Increase IV fluids. Agree with midodrine. Replace potassium. Repeat labs today. Check accurate I's and O's. Check UA. Thank you for this consultation. We will continue to follow the patient with you during her hospitalization. CRYS / ROSARIO: [id number] /
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
[2021-02-10] MEDS ORDERED: LIDOCAINE 1% (10MG/ML) FOR IV START INTRADERMA PRN (16:18)
[2021-02-10] MEDS: LACTATED RINGERS 1,000 ML IV SCH (20:37)
[2021-02-10 21:26] LABS: Appearance,Urine Turbid (Clear); Bacteria,Urine Moderate /hpf; Bilirubin,Urine 4+ (Negative); Blood,Urine Moderate (Negative); Budding Yeast,Urine Occasional /hpf; Color,Urine Dark Brown; Glucose,Urine (UA) Negative (Negative); Hyaline Casts,Urine 1 /lpf (0-2); Ketones,Urine Negative (Negative); Leukocyte Esterase,Urine Moderate (Negative); Mucus,Urine Rare /hpf; Nitrite,Urine Negative (Negative); PH, Urine 6.5 (5.0-8.0); Protein,Urine Trace (Negative); RBC,Urine 5 /hpf (0-5); Specific Gravity,Urine 1.013 (1.001-1.035); Squamous Epithelial Cell,Urine 2 /hpf (0-4); WBC,Urine 13 /hpf (0-5)
[2021-02-11] MEDS: 0.9% NACL WITH KCL 20 MEQ/L 1,000 ML IV SCH (04:13)
[2021-02-11] MEDS: THIAMINE 100 MG TAB PO SCH ×2 (07:40→17:48)
[2021-02-11] MEDS: ONDANSETRON 4 MG/2 ML VIAL IVP PRN ×2 (07:41→21:26)
[2021-02-11] MEDS: LACTULOSE 20 GM/30 ML CUP PO SCH ×3 (07:41→21:21)
[2021-02-11] MEDS: PANTOPRAZOLE 40 MG/10 ML VIAL IVP SCH ×2 (07:41→21:21)
[2021-02-11 10:46] LABS: INR 1.99 (0.90-1.11); Prothrombin Time 20.7 sec (9.9-11.9)
[2021-02-11 11:20] LABS: HCT 21.4 % (37.2-46.3); HGB 7.2 g/dL (12.0-15.0); MCH 36.2 pg (27.0-32.0); MCHC 33.6 g/dL (32.0-37.0); MCV 107.5 fL (80.0-97.0); Mean Platelet Volume 12.7 fL (9.5-12.2); Platelet Count 104 X 10*3/uL (140-440); RBC 1.99 X 10*6/uL (4.10-5.20); RDW 17.4 % (11.5-14.5); WBC 8.33 X 10*3/uL (4.50-10.00)
[2021-02-11 11:21] LABS: Acanthocytes 2+; Macrocytosis (M) 2+
[2021-02-11 12:25] LABS: African American GFR (CKD) 30.4 (60.0-200.0); Albumin 2.6 g/dL (3.80-4.90); Albumin/Globulin Ratio 0.72 (1.60-3.17); Anion Gap 11.2 mmol/L (4.00-12.00); BUN/Creat Ratio 4.58 Ratio (12.00-20.00); Calcium 8.4 mg/dL (8.7-10.3); Carbon Dioxide 16.8 mmol/L (21.6-31.8); Globulin 3.6 g/dL (1.6-3.3); Non-African American GFR(CKD) 26.2 (60.0-200.0); Potassium 3.4 mmol/L (3.5-5.5); Total Bilirubin 41.3 mg/dL (0.3-1.2); Total Protein 6.2 g/dL (6.2-8.2)
--- NOTE | 2021-02-11 12:32 | PN ---
PROGRESS NOTE Patient is seen for followup for acute kidney injury. She was admitted to the hospital with increased weakness, malaise, nausea and vomiting. Patient has a history of EtOH abuse and chronic liver disease. She has been hypotensive for which patient was started on midodrine. She is also maintained on IV fluids. It appears that patient has been voiding, about 275 cc was obtained overnight. PHYSICAL EXAMINATION: On examination today, blood pressure is 98/55, heart rate 94 per minute, she is afebrile. Examination of the lower extremities shows no evidence of edema. 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 LAB: Show hemoglobin 7.2. BMP from today is pending. Serum creatinine had gone up to 2.2 yesterday. UA shows trace protein, moderate blood, and WBCs 13. ASSESSMENT: 1. Acute kidney injury secondary to hypotension, hypovolemia. The patient is maintained on IV fluids. I see that his fluids have been turned down. I would increase the fluids again. Serum creatinine was higher yesterday. It looks like he has had fair urine output. Therefore, I doubt hepatorenal syndrome. Abdominal ultrasound done yesterday does not mention the kidneys. A CT scan done on 01/08/2020 does not show any evidence of hydronephrosis. 2. Severe hyperbilirubinemia. 3. Chronic liver disease secondary to EtOH abuse. 4. History of seizure disorder. PLAN: Check labs today. Continue IV fluids. Continue midodrine. Check accurate I's and O's. MMODL / IJN: [id number] /
[2021-02-11] MEDS: MIDODRINE 5 MG TAB PO SCH ×2 (14:42→17:47)
[2021-02-11] MEDS: RIFAXIMIN 550 MG TABLET PO SCH ×2 (14:42→21:21)
--- NOTE | 2021-02-11 14:47 | PN ---
PROGRESS NOTE DATE OF SERVICE: February 11, 2021 Patient is a 30-year-old white female admitted to hospital with acute liver failure secondary to severe acute alcoholic hepatitis. She is slightly lethargic but better than yesterday. She was seen on consultation yesterday for GI bleed. She had some dark colored stools for the last 2 days, but none since last night. Hemoglobin dropped from 9.2-7.1 g/dL. She denies any abdominal pain. No nausea, no vomiting. She had about 2 bowel movements with the lactulose today. PHYSICAL EXAMINATION: She appears comfortable. No apparent distress. Vital signs are stable. Blood pressure is 97/57, pulse is 95, temperature 98.4. HEENT examination unremarkable. Conjunctivae pink. Sclerae deeply icteric. Oral cavity no lesions. Neck no JVD or lymph node enlargement. CHEST was clear to auscultation. HEART: Regular rate and rhythm. ABDOMEN: Soft, slightly distended, but no free fluid noted. Extremities: No pedal edema. Neuro: She is awake, oriented to name and place but not to time. LABS: From today WBC 8.3, hemoglobin 7.2, and platelets 104. INR is 1.99. BUN is 11, creatinine 2.4. T-bilirubin is up to 41.3, AST 41, ALT 9, alk phos is 130. IMPRESSION: 1. Severe acute alcoholic hepatitis superimposed on alcoholic cirrhosis of the liver with acute liver failure. 2. Gastrointestinal bleed. The patient presents with dark colored stools. No further bleeding in the last 24 hours. Hemoglobin dropped from 8.3-7.2 g/dL. She had mild coagulopathy with an INR of 2.6. She received 2 units of FFP yesterday and today INR is down to 1.9. No further bleeding noted. She was scheduled for an EGD, but was canceled by anesthesia. 3. Altered mental status secondary to hepatic encephalopathy with improving ammonia is 104 today. 4. Elevated LFTs and jaundice. RECOMMENDATIONS: I had a lengthy discussion with the patient regarding her overall clinical condition and prognosis. The patient at this time wants to continue to remain FULL CODE as per Dr. Enrique. We will continue with oral lactulose 30 mL 3 times daily. Monitor CBC daily and transfuse if the hemoglobin is 7. Since she is has no active bleeding, we will hold off on upper endoscopy today and we will follow with you. Thank you for this consultation. MMBURAKL / IJN: [id number] /
--- NOTE | 2021-02-11 15:27 | P.PN ---
Subjective Patient is a 30-year-old female came in from outside facility where she presented with dark stools and generalized weakness. Patient the is found to be in severe hepatic encephalopathy patient is alert oriented 2 drowsy cannot make any decisions patient has advanced acidosis alcoholic cirrhosis able to provide me some history, patient continues to drink alcohol. Patient is profoundly jaundiced with very high meld score, patient does have moderate ascites. Patient is hypotensive with a serum creatinine of 1.7. Patient at one point of time was under hospice care when and was taken off hospice. Patient had normal serum creatinine in the past. Patient has been urinating. Patient has elevated ammonia of 1:30. Patient had bright red blood per rectum today patient apparently had dark stools. probably has variceal and hemorrhoidal bleed. Patient has highly elevated INR of around 2.26 giving her IV vitamin K 10 mg. Patient overall prognosis is extremely poor patient remains full code. Patient is also found to have positive Covid 19 Patient's GI bleed resolved at this time and her INR has come down to 1.9 in after vitamin K infusion. Patient evidently has a portal gastropathy on her previous upper GI endoscopy, patient is much more awake alert oriented 3 but still mildly confused but can make her dictations for herself initially when I discussed with the patient patient doesn't want hospice does want to continue the treatment and see how she does. After extensive discussion patient wanted to be full code as well. Later in the day I was notified that patient wanted hospice evaluation because of which hospice is being consulted at this time. Patient's ammonia level has come down to 1.103 patient is having bowel movements and is on lactulose PHYSICAL EXAMINATION: GENERAL: The patient is drowsy confused not in any acute distress. Well developed, well nourished. HEENT: Pupils are round and equally reacting to light. EOMI. she does have scleral icterus. No conjunctival pallor. Normocephalic, atraumatic. No pharyngeal erythema. No thyromegaly. CARDIOVASCULAR: S1 and S2 present. No murmurs, rubs, or gallops. PULMONARY: Chest is clear to auscultation, no wheezing or crackles. ABDOMEN: Moderate ascites bowel sounds present MUSCULOSKELETAL: No joint swelling or deformity. EXTREMITIES: No cyanosis, clubbing, or pedal edema. NEUROLOGICAL: Gross neurological examination did not reveal any focal deficits. SKIN: Yellowish discoloration of skin Assessment and plan -Acute upper and lower GI bleed probably variceal and hemorrhoidal bleed , received vitamin K improved GI bleed. No plans for endoscopy at this time -Severe hepatic encephalopathy for which patient is receiving lactulose , improving ammonia level -Cirrhosis with highmeld score patient's overall prognosis is extremely poor, hospice was consulted as per the request of the patient -Asymptomatic Covid 19 infection -Acute renal failure: Multifactorial probably secondary to hypotension and intravascular volume depletion in spite of overall volume overload from cirrhosis. 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 DVT prophylaxis: Patient is auto anticoagulated Objective - Vital Signs Vital signs: Vital Signs Temp 98.4 F 02/11/21 14:00 Pulse 93 02/11/21 14:00 Resp 18 02/11/21 14:00 BP 102/61 02/11/21 14:00 Pulse Ox 100 02/11/21 14:00 Intake & Output 02/10/21 02/11/21 02/11/21 18:59 06:59 18:59 Intake Total 346 336 Output Total 275 Balance 346 61 Intake: Blood Product 346 336 Ffp 24 Cpd Unit 0 336 [id number] Ffp 24 Cpd Unit 346 [id number] Output: Urine 275 Other: Voiding Method External Catheter External Catheter # Voids 2 # Bowel Movements 1 4 - Labs CBC & Chem 7: 02/11/21 05:42 02/11/21 05:42 Labs: Abnormal Lab Results - Last 24 Hours (Table) 02/10/21 02/11/21 02/11/21 Range/Units 20:20 05:42 05:42 RBC (4.10-5.20) X 10*6/uL Hgb (12.0-15.0) g/dL Hct (37.2-46.3) % MCV (80.0-97.0) fL MCH (27.0-32.0) pg RDW (11.5-14.5) % Plt Count (140-440) X 10*3/uL Plt Count Comment MPV (9.5-12.2) fL PT (9.9-11.9) sec INR (0.90-1.11) Potassium 3.4 L (3.5-5.5) mmol/L Chloride 111 H (96-109) mmol/L Carbon Dioxide 16.8 L (21.6-31.8) mmol/L Creatinine 2.4 H (0.6-1.5) mg/dL Est GFR (CKD-EPI)AfAm 30.4 L (60.0-200.0) Est GFR (CKD-EPI)NonAf 26.2 L (60.0-200.0) BUN/Creatinine Ratio 4.58 L (12.00-20.00) Ratio Calcium 8.4 L (8.7-10.3) mg/dL Total Bilirubin 41.3 H* (0.3-1.2) mg/dL AST 41 H (13-35) U/L Alkaline Phosphatase 130 H (41-126) U/L Ammonia 105 H (<30) umol/L Albumin 2.60 L (3.80-4.90) g/dL Globulin 3.6 H (1.6-3.3) g/dL Albumin/Globulin Ratio 0.72 L (1.60-3.17) g/dL Urine Appearance Turbid H (Clear) Urine Protein Trace H (Negative) Urine Blood Moderate H (Negative) Urine Bilirubin 4+ H (Negative) Ur Leukocyte Esterase Moderate H (Negative) Urine WBC 13 H (0-5) /hpf Urine Bacteria Moderate H (None) /hpf Urine Mucus Rare H (None) /hpf Urine Yeast (Budding) Occasional H (None) /hpf 02/11/21 02/11/21 Range/Units 05:42 05:42 RBC 1.99 L (4.10-5.20) X 10*6/uL Hgb 7.2 L (12.0-15.0) g/dL Hct 21.4 L (37.2-46.3) % MCV 107.5 H (80.0-97.0) fL MCH 36.2 H (27.0-32.0) pg RDW 17.4 H (11.5-14.5) % Plt Count 104 L (140-440) X 10*3/uL Plt Count Comment DECREASED A MPV 12.7 H (9.5-12.2) fL PT 20.7 H (9.9-11.9) sec INR 1.99 H (0.90-1.11) Potassium (3.5-5.5) mmol/L Chloride (96-109) mmol/L Carbon Dioxide (21.6-31.8) mmol/L Creatinine (0.6-1.5) mg/dL Est GFR (CKD-EPI)AfAm (60.0-200.0) Est GFR (CKD-EPI)NonAf (60.0-200.0) BUN/Creatinine Ratio (12.00-20.00) Ratio Calcium (8.7-10.3) mg/dL Total Bilirubin (0.3-1.2) mg/dL AST (13-35) U/L Alkaline Phosphatase (41-126) U/L Ammonia (<30) umol/L Albumin (3.80-4.90) g/dL Globulin (1.6-3.3) g/dL Albumin/Globulin Ratio (1.60-3.17) g/dL Urine Appearance (Clear) Urine Protein (Negative) Urine Blood (Negative) Urine Bilirubin (Negative) Ur Leukocyte Esterase (Negative) Urine WBC (0-5) /hpf Urine Bacteria (None) /hpf Urine Mucus (None) /hpf Urine Yeast (Budding) (None) /hpf
[2021-02-11] MEDS: LACTATED RINGERS 1,000 ML IV SCH (17:09)
[2021-02-11] MEDS: levETIRAcetam 500 MG TAB PO SCH (21:21)
[2021-02-11] MEDS: LORazepam 2 MG/ML INJ IV PRN (21:45)
[2021-02-12] MEDS: guaiFENesin SYRUP 100MG/5ML 200 MG/10 ML CUP PO PRN ×2 (00:43→09:51)
[2021-02-12] MEDS: 0.9% NACL WITH KCL 20 MEQ/L 1,000 ML IV SCH ×2 (02:34→11:35)
[2021-02-12] MEDS: ONDANSETRON 4 MG/2 ML VIAL IVP PRN (05:56)
[2021-02-12 08:21] LABS: INR 2.3 (<1.2)
[2021-02-12 08:31] LABS: ALT 11 U/L (4-34); AST 49 U/L (14-36); African American GFR (CKD) 32 (>60 ml/min/1.73 sqM); Albumin 2.5 g/dL (3.5-5.0); Albumin/Globulin Ratio 0.6; Alkaline Phosphatase 141 U/L (38-126); Anion Gap 9 mmol/L; Blood Urea Nitrogen 11 mg/dL (7-17); Calcium 8.9 mg/dL (8.4-10.2); Carbon Dioxide 14 mmol/L (22-30); Chloride 118 mmol/L (98-107); Globulin 4.3 g/dL; Non-African American GFR(CKD) 28 (>60 ml/min/1.73 sqM); Potassium 4.5 mmol/L (3.5-5.1); Sodium 141 mmol/L (137-145); Total Protein 6.8 g/dL (6.3-8.2)
[2021-02-12 08:46] LABS: Anisocytosis Slight; HCT 26.7 % (34.0-46.0); HGB 8.7 gm/dL (11.4-16.0); Hypochromasia Marked; MCH 36.7 pg (25.0-35.0); MCHC 32.7 g/dL (31.0-37.0); MCV 112.5 fL (80.0-100.0); Macrocytosis Marked; Mean Platelet Volume 6.8; Platelet Count 108 k/uL (150-450); Poikilocytosis Slight; RBC 2.38 m/uL (3.80-5.40); RDW 19.3 % (11.5-15.5); WBC 9.5 k/uL (3.8-10.6)
[2021-02-12 08:59] LABS: Total Bilirubin 36.4 mg/dL (0.2-1.3)
[2021-02-12 09:06] LABS: Glucose 124 mg/dL (74-99)
[2021-02-12] MEDS: PANTOPRAZOLE 40 MG/10 ML VIAL IVP SCH ×2 (09:28→21:15)
[2021-02-12] MEDS: LACTULOSE 20 GM/30 ML CUP PO SCH ×3 (09:28→21:15)
[2021-02-12] MEDS: MIDODRINE 5 MG TAB PO SCH ×2 (09:29→18:06)
[2021-02-12] MEDS: RIFAXIMIN 550 MG TABLET PO SCH ×2 (09:29→21:15)
[2021-02-12] MEDS: levETIRAcetam 500 MG TAB PO SCH ×2 (09:29→21:15)
[2021-02-12] MEDS: THIAMINE 100 MG TAB PO SCH ×2 (09:30→18:06)
[2021-02-12] MEDS: LORazepam 2 MG/ML INJ IV PRN (09:51)
[2021-02-12] MEDS: DEXTROSE 5% IN WATER 1,000 ML with SODIUM BICARB (1 MEQ/ML) 150 ML IV SCH (11:12)
--- NOTE | 2021-02-12 12:05 | PN ---
PROGRESS NOTE Patient is seen for followup for acute kidney injury. The patient's renal function has been worsening. She has history of underlying chronic liver disease and was hypotensive on admission, currently maintained on midodrine and IV fluids. Urine output is not accurately charted as patient has an external catheter. It appears that she has had more urine output and what is charted. Patient also has tested positive for COVID PCR, but has not had any respiratory symptoms and is currently 100% on room air for O2 sats. PHYSICAL EXAMINATION: On examination today, blood pressure 102/58, heart rate 93 per minute, she is afebrile. Examination of lower extremities shows no evidence of edema. Heart and lungs are not examined. Abdomen is soft, nontender. [employer] exam grossly intact. LABS: From today show sodium 141, potassium 4.5, chloride 118 CO2 is 14, BUN 11, serum creatinine 2.3, hemoglobin 8.7 g/dL, bilirubin 36.4. ASSESSMENT: 1. Acute kidney injury secondary to hypotension as well as an element of pigment nephropathy with significantly elevated bilirubin. Serum creatinine slightly better than yesterday. Will continue with the midodrine and IV fluids for now. 2. Metabolic acidosis, non gap associated with renal failure and gastrointestinal fluid loss with use of lactulose to prevent hepatic encephalopathy. I will change the IV fluids to IV bicarb. 3. Chronic liver disease secondary to alcoholic liver disease. 4. Anemia, multifactorial. PLAN: Change IV fluids to IV bicarb. Insert Staples catheter temporarily for accurate I's and O's. Repeat labs in a.m. Continue midodrine. MMODL / IJN: [id number] /
[2021-02-12] MEDS ORDERED: PHYTONADIONE 10 MG in SODIUM CHLORIDE 0.9% 50 ML IVPB STA (13:27)
--- NOTE | 2021-02-12 15:26 | P.PN ---
Subjective Patient is a 30-year-old female came in from outside facility where she presented with dark stools and generalized weakness. Patient the is found to be in severe hepatic encephalopathy patient is alert oriented 2 drowsy cannot make any decisions patient has advanced acidosis alcoholic cirrhosis able to provide me some history, patient continues to drink alcohol. Patient is profoundly jaundiced with very high meld score, patient does have moderate ascites. Patient is hypotensive with a serum creatinine of 1.7. Patient at one point of time was under hospice care when and was taken off hospice. Patient had normal serum creatinine in the past. Patient has been urinating. Patient has elevated ammonia of 1:30. Patient had bright red blood per rectum today patient apparently had dark stools. probably has variceal and hemorrhoidal bleed. Patient has highly elevated INR of around 2.26 giving her IV vitamin K 10 mg. Patient overall prognosis is extremely poor patient remains full code. Patient is also found to have positive Covid 19 02/11/2021 Patient's GI bleed resolved at this time and her INR has come down to 1.9 in after vitamin K infusion. Patient evidently has a portal gastropathy on her previous upper GI endoscopy, patient is much more awake alert oriented 3 but still mildly confused but can make her dictations for herself initially when I discussed with the patient patient doesn't want hospice does want to continue the treatment and see how she does. After extensive discussion patient wanted to be full code as well. Later in the day I was notified that patient wanted hospice evaluation because of which hospice is being consulted at this time. Patient's ammonia level has come down to 1.103 patient is having bowel movements and is on lactulose 02/12/2021 Patient is more drowsier do not have any ammonia level available at this time. Patient's serum creatinine remains at 2.3.. Patient doesn't have any more GI bleed but the INR went up again and giving another dose of IV vitamin K. PHYSICAL EXAMINATION: GENERAL: The patient is drowsy confused not in any acute distress. Well developed, well nourished. HEENT: Pupils are round and equally reacting to light. EOMI. she does have scleral icterus. No conjunctival pallor. Normocephalic, atraumatic. No pharyngeal erythema. No thyromegaly. CARDIOVASCULAR: S1 and S2 present. No murmurs, rubs, or gallops. PULMONARY: Chest is clear to auscultation, no wheezing or crackles. ABDOMEN: Moderate ascites bowel sounds present MUSCULOSKELETAL: No joint swelling or deformity. EXTREMITIES: No cyanosis, clubbing, or pedal edema. NEUROLOGICAL: Gross neurological examination did not reveal any focal deficits. SKIN: Yellowish discoloration of skin Assessment and plan -Acute upper and lower GI bleed probably variceal and hemorrhoidal bleed , received vitamin K improved GI bleed. No plans for endoscopy at this time -Severe hepatic encephalopathy for which patient is receiving lactulose and rifaximin , will order ammonia level again tomorrow -Cirrhosis with highmeld score patient's overall prognosis is extremely poor, kevan chung was consulted as per the request of the patient -Asymptomatic Covid 19 infection -Acute renal failure: Multifactorial probably secondary to hypotension and intravascular volume depletion in spite of overall volume overload from cirrhosis. 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 DVT prophylaxis: Patient is auto anticoagulated Objective - Vital Signs Vital signs: Vital Signs Temp 98.8 F 02/12/21 14:34 Pulse 89 02/12/21 14:41 Resp 20 02/12/21 14:34 BP 108/67 02/12/21 14:41 Pulse Ox 95 02/12/21 14:41 Intake & Output 02/11/21 02/12/21 02/12/21 18:59 06:59 18:59 Intake Total 480 Output Total 300 Balance -300 480 Intake: Oral 480 Output: Urine 300 Other: Voiding Method External Catheter Bedpan Diaper # Voids 1 # Bowel Movements 3 1 - Labs CBC & Chem 7: 02/12/21 07:43 02/12/21 07:00 Labs: Abnormal Lab Results - Last 24 Hours (Table) 02/12/21 02/12/21 02/12/21 Range/Units 07:00 07:00 07:43 RBC 2.38 L (3.80-5.40) m/uL Hgb 8.7 L (11.4-16.0) gm/dL Hct 26.7 L (34.0-46.0) % MCV 112.5 H (80.0-100.0) fL MCH 36.7 H (25.0-35.0) pg RDW 19.3 H (11.5-15.5) % Plt Count 108 L (150-450) k/uL Macrocytosis Marked A PT 22.0 H (9.0-12.0) sec INR 2.3 H (<1.2) Chloride 118 H (98-107) mmol/L Carbon Dioxide 14 L (22-30) mmol/L Creatinine 2.30 H (0.52-1.04) mg/dL Glucose 124 H (74-99) mg/dL Total Bilirubin 36.4 H* (0.2-1.3) mg/dL AST 49 H (14-36) U/L Alkaline Phosphatase 141 H (38-126) U/L Albumin 2.5 L (3.5-5.0) g/dL
[2021-02-12] MEDS: LACTATED RINGERS 1,000 ML IV SCH (18:05)
--- NOTE | 2021-02-12 20:27 | P.PN ---
Subjective Progress Note Date: 02/12/21 Principal diagnosis: Alcohol cirrhosis, alcohol hepatitis, decompensated liver failure Patient seen lying in bed in no acute complaints. Objective - Vital Signs Vital signs: Vital Signs Temp 98.6 F 02/12/21 10:00 Pulse 91 02/12/21 10:00 Resp 16 02/12/21 10:00 BP 108/69 02/12/21 10:00 Pulse Ox 100 02/12/21 10:00 Intake & Output 02/11/21 02/12/21 02/12/21 18:59 06:59 18:59 Intake Total 480 Output Total 300 Balance -300 480 Intake: Oral 480 Output: Urine 300 Other: Voiding Method External Catheter Bedpan Diaper # Voids 1 # Bowel Movements 3 1 - Exam On physical examination, patient appears comfortable in no apparent distress. HEAD: Normocephalic, atraumatic. EYES: Scleral icterus. No conjunctival injection. MOUTH: No lesions, tongue midline. NECK: Trachea midline, no gross abnormalities. ABDOMEN: Soft, obese. Bowel sounds are positive. No organomegaly. No guarding or rigidity. EXTREMITIES: Bilateral pedal edema. SKIN: No rashes, jaundice. NEUROLOGIC: Alert and oriented person and place with tremulousness but no asterixis noted. No focal deficits. - Labs CBC & Chem 7: 02/12/21 07:43 02/12/21 07:00 Labs: Abnormal Lab Results - Last 24 Hours (Table) 02/12/21 02/12/21 02/12/21 Range/Units 07:00 07:00 07:43 RBC 2.38 L (3.80-5.40) m/uL Hgb 8.7 L (11.4-16.0) gm/dL Hct 26.7 L (34.0-46.0) % MCV 112.5 H (80.0-100.0) fL MCH 36.7 H (25.0-35.0) pg RDW 19.3 H (11.5-15.5) % Plt Count 108 L (150-450) k/uL Macrocytosis Marked A PT 22.0 H (9.0-12.0) sec INR 2.3 H (<1.2) Chloride 118 H (98-107) mmol/L Carbon Dioxide 14 L (22-30) mmol/L Creatinine 2.30 H (0.52-1.04) mg/dL Glucose 124 H (74-99) mg/dL Total Bilirubin 36.4 H* (0.2-1.3) mg/dL AST 49 H (14-36) U/L Alkaline Phosphatase 141 H (38-126) U/L Albumin 2.5 L (3.5-5.0) g/dL Assessment and Plan (1) Liver failure Narrative/Plan: 30-year-old female with a history of heavy alcohol abuse who presented to the hospital reporting consumption of approximately a fifth of liquor daily and was found to have elevated liver enzymes, hyperbilirubinemia, coagulopathy consistent with alcoholic cirrhosis of the liver with a likely component of acute alcoholic hepatitis. She's had markedly elevated bilirubin, elevated creatinine and coagulopathy consistent with liver failure. INR was 2.6 on presentation improves after vitamin K at 2 and 2.3 today. Hemoglobin is stable at 9. No signs or symptoms of GI bleeding. Overall very poor prognosis due to ongoing alcohol use in liver failure. Current Visit: Yes Status: Acute Code(s): K72.90 - HEPATIC FAILURE, UNSPECIFIED WITHOUT COMA SNOMED Code(s): 15864444 (2) Ascites Current Visit: Yes Status: Acute Code(s): R18.8 - OTHER ASCITES SNOMED Code(s): 554141493 (3) ETOH abuse Current Visit: Yes Status: Acute Code(s): F10.10 - ALCOHOL ABUSE, UNCOMPLICATED SNOMED Code(s): 43090612 (4) Jaundice Current Visit: Yes Status: Acute Code(s): R17 - UNSPECIFIED JAUNDICE SNOMED Code(s): 65462706 (5) Alcoholic hepatitis Current Visit: No Status: Acute Code(s): K70.10 - ALCOHOLIC HEPATITIS WITHOUT ASCITES SNOMED Code(s): 437916057 (6) Hepatic encephalopathy Current Visit: No Status: Acute Code(s): K72.90 - HEPATIC FAILURE, UNSPECIFIED WITHOUT COMA SNOMED Code(s): 01422313 Plan: 1. Okay for sodium restricted diet as tolerated 2. Agree with vitamin K 3. Continue monitor clinically 4. Lactulose 30 g 3 times a day 5. Xifaxan 550 mg twice a day 6. Diuretics per recommendations from nephrology 7. Repeat daily CBC, INR, CMP, ammonia daily 8. Alcohol abstinence 9. Closely monitor for withdrawal symptoms Thank you for this consultation,the gastroenterology service will sign off, overall very poor prognosis if further assistance is needed patient may benefit from transfer to tertiary center for evaluation by hepatology, however given her medical status hospice care would be more appropriate as the patient's overall mortality is very high in the setting of alcohol liver disease and failure and continued alcohol abuse.
[2021-02-12 21:02] LABS: HCT 23.9 % (37.2-46.3); HGB 7.7 g/dL (12.0-15.0); MCHC 32.2 g/dL (32.0-37.0); MCV 111.7 fL (80.0-97.0); Mean Platelet Volume 12.9 fL (9.5-12.2); Platelet Count 137 X 10*3/uL (140-440); RBC 2.14 X 10*6/uL (4.10-5.20); WBC 10.92 X 10*3/uL (4.50-10.00)
[2021-02-12 21:03] LABS: Basophils # (M) 0.22 X 10*3/uL (0.00-0.10); Eosinophils # (M) 0.22 X 10*3/uL (0.04-0.35); Lymphocytes # (M) 0.87 X 10*3/uL (0.90-5.00); Macrocytosis (M) 2+; Metamyelocytes % 1 % (0-0); Monocytes # (M) 0.98 X 10*3/uL (0.20-1.00); Myelocytes % 1 % (0-0); Neutrophils # (M) 8.41 X 10*3/uL (2.00-8.90); Neutrophils % (M) 77 %; Polychromasia 2+; Schistocytes 1+
[2021-02-13] MEDS: DEXTROSE 5% IN WATER 1,000 ML with SODIUM BICARB (1 MEQ/ML) 150 ML IV SCH ×2 (04:19→13:53)
[2021-02-13] MEDS: THIAMINE 100 MG TAB PO SCH ×2 (08:11→16:39)
[2021-02-13] MEDS: MIDODRINE 5 MG TAB PO SCH ×2 (08:11→17:05)
[2021-02-13] MEDS: ONDANSETRON 4 MG/2 ML VIAL IVP PRN (08:11)
[2021-02-13] MEDS: levETIRAcetam 500 MG TAB PO SCH ×2 (08:12→21:27)
[2021-02-13] MEDS: PANTOPRAZOLE 40 MG/10 ML VIAL IVP SCH ×2 (08:12→21:27)
[2021-02-13] MEDS: RIFAXIMIN 550 MG TABLET PO SCH ×2 (08:13→21:27)
[2021-02-13] MEDS: LACTULOSE 20 GM/30 ML CUP PO SCH ×3 (08:45→21:27)
[2021-02-13] MEDS: LORazepam 1 MG TAB PO PRN ×2 (08:45→16:39)
[2021-02-13] MEDS ORDERED: PHYTONADIONE 10 MG in SODIUM CHLORIDE 0.9% 50 ML IVPB STA (09:16)
--- NOTE | 2021-02-13 10:19 | P.PN ---
Subjective Patient is seen in follow-up for acute kidney injury. Creatinine 2.3 as of yesterday. Labs from today are pending. Oral intake remains poor. Admits to good urine output. Maintained on bicarb drip. Vital signs are stable. General: The patient appeared well nourished and normally developed. HEENT: Head exam is unremarkable. Neck is without jugular venous distension. LUNGS: Breath sounds decreased. HEART: Rate and Rhythm are regular. ABDOMEN: Distention noted. EXTREMITITES: No edema. Objective - Vital Signs Vital signs: Vital Signs Temp 98 F 02/13/21 09:59 Pulse 100 02/13/21 09:59 Resp 15 02/13/21 09:59 BP 101/61 02/13/21 09:59 Pulse Ox 100 02/13/21 09:59 Intake & Output 02/12/21 02/13/21 02/13/21 18:59 06:59 18:59 Intake Total 960 960 Output Total 300 Balance 960 660 Intake: IV 960 Dextrose 5% in Water 1, 960 000 ml @ 80 mls/hr IV . [id number] CE with Sodium Bicarb (1 Meq/ml) 150 ml Rx#:[id number] Oral 960 Output: Urine 300 Other: Voiding Method Bedpan Bedpan Diaper Diaper Diaper # Voids 1 1 # Bowel Movements 2 2 - Labs CBC & Chem 7: 02/12/21 15:15 02/12/21 07:00 Labs: Abnormal Lab Results - Last 24 Hours (Table) 02/12/21 02/13/21 Range/Units 15:15 07:29 WBC 10.92 H (4.50-10.00) X 10*3/uL RBC 2.14 L (4.10-5.20) X 10*6/uL Hgb 7.7 L (12.0-15.0) g/dL Hct 23.9 L (37.2-46.3) % MCV 111.7 H (80.0-97.0) fL MCH 36.0 H (27.0-32.0) pg RDW 18.0 H (11.5-14.5) % Plt Count 137 L (140-440) X 10*3/uL Plt Count Comment DECREASED A MPV 12.9 H (9.5-12.2) fL Metamyelocytes % 1 H (0-0) % Myelocytes % 1 H (0-0) % Lymphocytes # (Manual) 0.87 L (0.90-5.00) X 10*3/uL Basophils # (Manual) 0.22 H (0.00-0.10) X 10*3/uL Ammonia 99 H (<30) umol/L Assessment and Plan Plan: Assessment: 1. Acute kidney injury secondary to ATN secondary to hypotension and pigment nephropathy. Creatinine 2.3 as of yesterday. Trace proteinuria on UA. 2. Metabolic acidosis secondary to acute kidney injury and GI losses maintained on bicarb drip. 3. Chronic liver disease secondary to alcohol abuse. 4. Hypokalemia from poor intake. Improved. 5. Hypotension due to underlying liver disease maintained on midodrine. Plan: Maintain bicarb drip. Morning labs pending. Continue to monitor renal function and urine output. Check renal ultrasound.
--- NOTE | 2021-02-13 11:32 | P.PN ---
Subjective Patient is a 30-year-old female came in from outside facility where she presented with dark stools and generalized weakness. Patient the is found to be in severe hepatic encephalopathy patient is alert oriented 2 drowsy cannot make any decisions patient has advanced acidosis alcoholic cirrhosis able to provide me some history, patient continues to drink alcohol. Patient is profoundly jaundiced with very high meld score, patient does have moderate ascites. Patient is hypotensive with a serum creatinine of 1.7. Patient at one point of time was under hospice care when and was taken off hospice. Patient had normal serum creatinine in the past. Patient has been urinating. Patient has elevated ammonia of 1:30. Patient had bright red blood per rectum today patient apparently had dark stools. probably has variceal and hemorrhoidal bleed. Patient has highly elevated INR of around 2.26 giving her IV vitamin K 10 mg. Patient overall prognosis is extremely poor patient remains full code. Patient is also found to have positive Covid 19 02/11/2021 Patient's GI bleed resolved at this time and her INR has come down to 1.9 in after vitamin K infusion. Patient evidently has a portal gastropathy on her previous upper GI endoscopy, patient is much more awake alert oriented 3 but still mildly confused but can make her dictations for herself initially when I discussed with the patient patient doesn't want hospice does want to continue the treatment and see how she does. After extensive discussion patient wanted to be full code as well. Later in the day I was notified that patient wanted hospice evaluation because of which hospice is being consulted at this time. Patient's ammonia level has come down to 1.103 patient is having bowel movements and is on lactulose 02/12/2021 Patient is more drowsier do not have any ammonia level available at this time. Patient's serum creatinine remains at 2.3.. Patient doesn't have any more GI bleed but the INR went up again and giving another dose of IV vitamin K. 02/13/2021 Issue remains on IV fluids patient's abdominal distention is bit worse. Patient Remains at 2.3 patient presently in [place]. Patient is was do not on octreotide. Serum ammonia level has come down to 99. He with the lactulose titrating for 2-3 loose bowel movements a day patient does have anion gap as well as non-anion gap metabolic acidosis. INR is 2.3 will order 10 mg of IV vitamin K. No more GI bleed clinically. Patient is bit more awake today but still appears lethargic. Constitutional: As mentioned in the interval history Cardio vascular: denied any chest pain, palpitations Gastrointestinal denied any nausea vomiting Pulmonary: Denied any shortness of breath cough Neurologic denied any new focal deficits All inpatient medications were reviewed and appropriate changes in these medications as dictated in the interval history and assessment and plan. PHYSICAL EXAMINATION: GENERAL: The patient is drowsy less confused. Well developed, well nourished. HEENT: Pupils are round and equally reacting to light. EOMI. she does have scleral icterus. No conjunctival pallor. Normocephalic, atraumatic. No pharyngeal erythema. No thyromegaly. CARDIOVASCULAR: S1 and S2 present. No murmurs, rubs, or gallops. PULMONARY: Chest is clear to auscultation, no wheezing or crackles. ABDOMEN: Moderate ascites bowel sounds present MUSCULOSKELETAL: No joint swelling or deformity. EXTREMITIES: No cyanosis, clubbing, or pedal edema. NEUROLOGICAL: Gross neurological examination did not reveal any focal deficits. SKIN: Yellowish discoloration of skin Assessment and plan -Acute upper and lower GI bleed probably variceal and hemorrhoidal bleed , received vitamin K improved GI bleed. No plans for endoscopy at this time -Severe hepatic encephalopathy for which patient is receiving lactulose and rifaximin , will order ammonia level again tomorrow -Cirrhosis with highmeld score patient's overall prognosis is extremely poor, hospice was consulted as per the request of the patient -Asymptomatic Covid 19 infection -Acute renal failure: Multifactorial probably secondary to hypotension and intravascular volume depletion in spite of overall volume overload from ci rrhosis. 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 DVT prophylaxis: Patient is auto anticoagulated Objective - Vital Signs Vital signs: Vital Signs Temp 98 F 02/13/21 09:59 Pulse 100 02/13/21 09:59 Resp 15 02/13/21 09:59 BP 101/61 02/13/21 09:59 Pulse Ox 100 02/13/21 09:59 Intake & Output 02/12/21 02/13/21 02/13/21 18:59 06:59 18:59 Intake Total 960 960 Output Total 300 Balance 960 660 Intake: IV 960 Dextrose 5% in Water 1, 960 000 ml @ 80 mls/hr IV . [id number] CE with Sodium Bicarb (1 Meq/ml) 150 ml Rx#:[id number] Oral 960 Output: Urine 300 Other: Voiding Method Bedpan Bedpan Diaper Diaper Diaper # Voids 1 1 # Bowel Movements 2 2 - Labs CBC & Chem 7: 02/12/21 15:15 02/12/21 07:00 Labs: Abnormal Lab Results - Last 24 Hours (Table) 02/12/21 02/13/21 Range/Units 15:15 07:29 WBC 10.92 H (4.50-10.00) X 10*3/uL RBC 2.14 L (4.10-5.20) X 10*6/uL Hgb 7.7 L (12.0-15.0) g/dL Hct 23.9 L (37.2-46.3) % MCV 111.7 H (80.0-97.0) fL MCH 36.0 H (27.0-32.0) pg RDW 18.0 H (11.5-14.5) % Plt Count 137 L (140-440) X 10*3/uL Plt Count Comment DECREASED A MPV 12.9 H (9.5-12.2) fL Metamyelocytes % 1 H (0-0) % Myelocytes % 1 H (0-0) % Lymphocytes # (Manual) 0.87 L (0.90-5.00) X 10*3/uL Basophils # (Manual) 0.22 H (0.00-0.10) X 10*3/uL Ammonia 99 H (<30) umol/L
[2021-02-13 12:21] LABS: INR 2.33 (0.90-1.11)
[2021-02-13 13:05] LABS: Albumin 2.4 g/dL (3.80-4.90); Albumin/Globulin Ratio 0.69 (1.60-3.17); BUN/Creat Ratio 3.91 Ratio (12.00-20.00); Calcium 8.2 mg/dL (8.7-10.3); Globulin 3.5 g/dL (1.6-3.3); Non-African American GFR(CKD) 27.6 (60.0-200.0); Potassium 3.7 mmol/L (3.5-5.5); Total Bilirubin 39.3 mg/dL (0.2-1.2); Total Protein 5.9 g/dL (6.2-8.2)
--- NOTE | 2021-02-13 15:40 | US ---
EXAMINATION TYPE: US kidneys/renal and bladder DATE OF EXAM: 02/13/2021 COMPARISON: CT 01/08/2020 CLINICAL HISTORY: 30 year-old female acute kidney injury TECHNIQUE: Multiple sonographic images of the kidneys and bladder are obtained. FINDINGS: EXAM MEASUREMENTS: Right Kidney: 13.2 x 5.9 x 6.4 cm Left Kidney: 14.2 x 5.5 x 7.0 cm No hydronephrosis on either side. Bladder: wnl Bilateral Jets seen: No Incidental note is made of enlarged spleen at 21.1 cm. Incidental note is made of free fluid in the pelvis. Trace perihepatic ascites also noted. IMPRESSION: 1. No hydronephrosis. 2. Incidental splenomegaly at 21.1 cm. 3. Incidental moderate pelvic ascites and trace perihepatic ascites. Correlate as to etiology.
[2021-02-13] MEDS: SODIUM BICARBONATE TAB 650 MG TAB PO SCH ×2 (16:39→21:27)
[2021-02-14] MEDS: DEXTROSE 5% IN WATER 1,000 ML with SODIUM BICARB (1 MEQ/ML) 150 ML IV SCH (05:30)
[2021-02-14] MEDS: levETIRAcetam 500 MG TAB PO SCH ×2 (07:46→20:01)
[2021-02-14] MEDS: THIAMINE 100 MG TAB PO SCH ×2 (07:46→16:49)
[2021-02-14] MEDS: SODIUM BICARBONATE TAB 650 MG TAB PO SCH ×3 (07:46→20:01)
[2021-02-14] MEDS: LORazepam 1 MG TAB PO PRN ×3 (07:46→20:13)
[2021-02-14] MEDS: MIDODRINE 5 MG TAB PO SCH ×3 (07:46→16:49)
[2021-02-14] MEDS: RIFAXIMIN 550 MG TABLET PO SCH ×2 (07:46→20:01)
[2021-02-14] MEDS: LACTULOSE 20 GM/30 ML CUP PO SCH ×3 (07:47→20:00)
[2021-02-14] MEDS: PANTOPRAZOLE 40 MG/10 ML VIAL IVP SCH ×2 (07:47→20:01)
--- NOTE | 2021-02-14 09:04 | P.PN ---
Subjective Patient is seen in follow-up for acute kidney injury. Creatinine 2.3 as of yesterday. Labs from today are pending. Oral intake remains poor. On clear liquid diet. Has been voiding. Maintained on bicarb drip. Vital signs are stable. General: The patient appeared well nourished and normally developed. HEENT: Head exam is unremarkable. Neck is without jugular venous distension. LUNGS: Breath sounds decreased. HEART: Rate and Rhythm are regular. ABDOMEN: Distention noted. EXTREMITITES: No edema. Objective - Vital Signs Vital signs: Vital Signs Temp 98.7 F 02/14/21 07:26 Pulse 88 02/14/21 07:26 Resp 20 02/14/21 07:26 BP 95/53 02/14/21 07:26 Pulse Ox 99 02/14/21 07:26 Intake & Output 02/13/21 02/14/21 02/14/21 18:59 06:59 18:59 Other: Voiding Method Diaper Diaper Diaper # Voids 2 2 # Bowel Movements 1 3 - Labs CBC & Chem 7: 02/12/21 15:15 02/13/21 07:29 Labs: Abnormal Lab Results - Last 24 Hours (Table) 02/13/21 02/13/21 02/14/21 Range/Units 07:29 07:29 06:29 PT 24.0 H (9.9-11.9) sec INR 2.33 H (0.90-1.11) Chloride 112 H (96-109) mmol/L Carbon Dioxide 15.0 L (21.6-31.8) mmol/L Creatinine 2.3 H (0.6-1.5) mg/dL Est GFR (CKD-EPI)AfAm 32.0 L (60.0-200.0) Est GFR (CKD-EPI)NonAf 27.6 L (60.0-200.0) BUN/Creatinine Ratio 3.91 L (12.00-20.00) Ratio Calcium 8.2 L (8.7-10.3) mg/dL Total Bilirubin 39.3 H* (0.2-1.2) mg/dL AST 53 H (13-35) U/L Alkaline Phosphatase 136 H (41-126) U/L Ammonia 107 H (<30) umol/L Total Protein 5.9 L (6.2-8.2) g/dL Albumin 2.40 L (3.80-4.90) g/dL Globulin 3.5 H (1.6-3.3) g/dL Albumin/Globulin Ratio 0.69 L (1.60-3.17) g/dL Assessment and Plan Plan: Assessment: 1. Acute kidney injury secondary to ATN secondary to hypotension and pigment nephropathy. Creatinine 2.3 as of yesterday. Trace proteinuria on UA. No hydronephrosis noted on kidney ultrasound. 2. Metabolic acidosis secondary to acute kidney injury and GI losses maintained on bicarb drip. 3. Chronic liver disease secondary to alcohol abuse. 4. Hypokalemia from poor intake. Status post placement. 5. Hypotension due to underlying liver disease maintained on midodrine. Plan: Maintain bicarb drip. Morning labs pending. Continue to monitor renal function and urine output. Maintain oral bicarb.
[2021-02-14 09:31] LABS: HCT 21.4 % (37.2-46.3); HGB 7.1 g/dL (12.0-15.0); MCHC 33.2 g/dL (32.0-37.0); MCV 108.6 fL (80.0-97.0); Mean Platelet Volume 13.1 fL (9.5-12.2); Platelet Count 118 X 10*3/uL (140-440); RBC 1.97 X 10*6/uL (4.10-5.20); WBC 8.71 X 10*3/uL (4.50-10.00)
[2021-02-14 09:54] LABS: INR 2.49 (0.90-1.11); Prothrombin Time 25.6 sec (9.9-11.9)
[2021-02-14 09:56] LABS: African American GFR (CKD) 27.6 (60.0-200.0); Albumin 2.3 g/dL (3.80-4.90); Albumin/Globulin Ratio 0.68 (1.60-3.17); Anion Gap 10.4 mmol/L (4.00-12.00); BUN/Creat Ratio 3.85 Ratio (12.00-20.00); Calcium 8.1 mg/dL (8.7-10.3); Carbon Dioxide 20.6 mmol/L (21.6-31.8); Globulin 3.4 g/dL (1.6-3.3); Magnesium 2.1 mg/dL (1.5-2.4); Non-African American GFR(CKD) 23.8 (60.0-200.0); Potassium 3.3 mmol/L (3.5-5.5); Total Bilirubin 38.5 mg/dL (0.3-1.2); Total Protein 5.7 g/dL (6.2-8.2)
[2021-02-14] MEDS ORDERED: POTASSIUM CHLORIDE ER 20 MEQ TAB.ER PO STA (12:16)
[2021-02-14] MEDS: SODIUM CHLORIDE 0.9% 1,000 ML IV SCH (13:03)
[2021-02-14] MEDS: ONDANSETRON 4 MG/2 ML VIAL IVP PRN ×2 (13:08→20:13)
--- NOTE | 2021-02-14 13:39 | P.PN ---
Subjective Patient is a 30-year-old female came in from outside facility where she presented with dark stools and generalized weakness. Patient the is found to be in severe hepatic encephalopathy patient is alert oriented 2 drowsy cannot make any decisions patient has advanced acidosis alcoholic cirrhosis able to provide me some history, patient continues to drink alcohol. Patient is profoundly jaundiced with very high meld score, patient does have moderate ascites. Patient is hypotensive with a serum creatinine of 1.7. Patient at one point of time was under hospice care when and was taken off hospice. Patient had normal serum creatinine in the past. Patient has been urinating. Patient has elevated ammonia of 1:30. Patient had bright red blood per rectum today patient apparently had dark stools. probably has variceal and hemorrhoidal bleed. Patient has highly elevated INR of around 2.26 giving her IV vitamin K 10 mg. Patient overall prognosis is extremely poor patient remains full code. Patient is also found to have positive Covid 19 02/11/2021 Patient's GI bleed resolved at this time and her INR has come down to 1.9 in after vitamin K infusion. Patient evidently has a portal gastropathy on her previous upper GI endoscopy, patient is much more awake alert oriented 3 but still mildly confused but can make her dictations for herself initially when I discussed with the patient patient doesn't want hospice does want to continue the treatment and see how she does. After extensive discussion patient wanted to be full code as well. Later in the day I was notified that patient wanted hospice evaluation because of which hospice is being consulted at this time. Patient's ammonia level has come down to 1.103 patient is having bowel movements and is on lactulose 02/12/2021 Patient is more drowsier do not have any ammonia level available at this time. Patient's serum creatinine remains at 2.3.. Patient doesn't have any more GI bleed but the INR went up again and giving another dose of IV vitamin K. 02/13/2021 Issue remains on IV fluids patient's abdominal distention is bit worse. Patient Remains at 2.3 patient presently in [place]. Patient is was do not on octreotide. Serum ammonia level has come down to 99. He with the lactulose titrating for 2-3 loose bowel movements a day patient does have anion gap as well as non-anion gap metabolic acidosis. INR is 2.3 will order 10 mg of IV vitamin K. No more GI bleed clinically. Patient is bit more awake today but still appears lethargic. 02/14/2021 In spite of high-grade [facility] medical management no significant improvement in patient clinical condition, patient INR remains high at 2.4 in spite of the IV vitamin K 3 days in a row. Ammonia is above 100 patient is still drowsy patient meld score is very high. Patient wanted hospice hospice was ready consulted mostly probably will be discharged under hospice care tomorrow. Will not obtain any more labs. Patient's creatinine although improved to 1.97 with IV fluids. mostly probably has hepatorenal syndrome along with prerenal azotemia. Review of systems unable to obtain due to her clinical condition All inpatient medications were reviewed and appropriate changes in these medications as dictated in the interval history and assessment and plan. PHYSICAL EXAMINATION: GENERAL: The patient is drowsy, still confused a bit. Well developed, well nourished. HEENT: Pupils are round and equally reacting to light. EOMI. she does have scleral icterus. No conjunctival pallor. Normocephalic, atraumatic. No pharyngeal erythema. No thyromegaly. CARDIOVASCULAR: S1 and S2 present. No murmurs, rubs, or gallops. PULMONARY: Chest is clear to auscultation, no wheezing or crackles. ABDOMEN: Moderate ascites bowel sounds present, does have asterixis MUSCULOSKELETAL: No joint swelling or deformity. EXTREMITIES: No cyanosis, clubbing, or pedal edema. NEUROLOGICAL: Gross neurological examination did not reveal any focal deficits. SKIN: Yellowish discoloration of skin Assessment and plan -Acute upper and lower GI bleed probably variceal and hemorrhoidal bleed , received vitamin K improved GI bleed. No plans for endoscopy at this time. Patient's INR continued to be high -Severe hepatic encephalopathy for which patient is receiving lactulose and rifaximin , will order ammonia level again tomorrow -Cirrhosis with highmeld score patient's overall prognosis is extremely poor, hospice was consulted as per the request of the patient -Asymptomatic Covid 19 infection -Acute renal failure: Multifactorial probably secondary to hypotension and intravascular volume depletion in spite of overall volume overload from cirrhosis. Coagulopathy secondary to cirrhosis -Hypokalemia potassium was replaced -Continued alcohol use: Until this admission -Seizure disorder for which patient is on antiseizure medications which are being continued -Pancytopenia secondary to cirrhosis Patient's overall prognosis is poor and her clinical condition is guarded guarded prognosis , hospice will evaluate the patient. DVT prophylaxis: Patient is auto anticoagulated Objective - Vital Signs Vital signs: Vital Signs Temp 99.0 F 02/14/21 13:30 Pulse 90 02/14/21 13:30 Resp 19 02/14/21 13:30 BP 100/62 02/14/21 13:30 Pulse Ox 100 02/14/21 13:30 Intake & Output 02/13/21 02/14/21 02/14/21 18:59 06:59 18:59 Other: Voiding Method Diaper Diaper Diaper # Voids 2 2 # Bowel Movements 1 3 - Labs CBC & Chem 7: 02/14/21 06:29 02/14/21 06:29 Labs: Abnormal Lab Results - Last 24 Hours (Table) 02/14/21 02/14/21 02/14/21 Range/Units 06:29 06:29 06:29 RBC 1.97 L (4.10-5.20) X 10*6/uL Hgb 7.1 L (12.0-15.0) g/dL Hct 21.4 L (37.2-46.3) % MCV 108.6 H (80.0-97.0) fL MCH 36.0 H (27.0-32.0) pg RDW 18.0 H (11.5-14.5) % Plt Count 118 L (140-440) X 10*3/uL MPV 13.1 H (9.5-12.2) fL PT 25.6 H (9.9-11.9) sec INR 2.49 H (0.90-1.11) Potassium (3.5-5.5) mmol/L Carbon Dioxide (21.6-31.8) mmol/L Creatinine (0.6-1.5) mg/dL Est GFR (CKD-EPI)AfAm (60.0-200.0) Est GFR (CKD-EPI)NonAf (60.0-200.0) BUN/Creatinine Ratio (12.00-20.00) Ratio Glucose (70-110) mg/dL Calcium (8.7-10.3) mg/dL Total Bilirubin (0.3-1.2) mg/dL AST (13-35) U/L Alkaline Phosphatase (41-126) U/L Ammonia 107 H (<30) umol/L Total Protein (6.2-8.2) g/dL Albumin (3.80-4.90) g/dL Globulin (1.6-3.3) g/dL Albumin/Globulin Ratio (1.60-3.17) g/dL 02/14/21 Range/Units 06:29 RBC (4.10-5.20) X 10*6/uL Hgb (12.0-15.0) g/dL Hct (37.2-46.3) % MCV (80.0-97.0) fL MCH (27.0-32.0) pg RDW (11.5-14.5) % Plt Count (140-440) X 10*3/uL MPV (9.5-12.2) fL PT (9.9-11.9) sec INR (0.90-1.11) Potassium 3.3 L (3.5-5.5) mmol/L Carbon Dioxide 20.6 L (21.6-31.8) mmol/L Creatinine 2.6 H (0.6-1.5) mg/dL Est GFR (CKD-EPI)AfAm 27.6 L (60.0-200.0) Est GFR (CKD-EPI)NonAf 23.8 L (60.0-200.0) BUN/Creatinine Ratio 3.85 L (12.00-20.00) Ratio Glucose 145 H (70-110) mg/dL Calcium 8.1 L (8.7-10.3) mg/dL Total Bilirubin 38.5 H* (0.3-1.2) mg/dL AST 52 H (13-35) U/L Alkaline Phosphatase 130 H (41-126) U/L Ammonia (<30) umol/L Total Protein 5.7 L (6.2-8.2) g/dL Albumin 2.30 L (3.80-4.90) g/dL Globulin 3.4 H (1.6-3.3) g/dL Albumin/Globulin Ratio 0.68 L (1.60-3.17) g/dL
[2021-02-15] MEDS: SODIUM CHLORIDE 0.9% 1,000 ML IV SCH (02:07)
[2021-02-15] MEDS: PANTOPRAZOLE 40 MG/10 ML VIAL IVP SCH ×2 (07:52→21:14)
[2021-02-15] MEDS: LACTULOSE 20 GM/30 ML CUP PO SCH ×3 (07:52→21:15)
[2021-02-15] MEDS: RIFAXIMIN 550 MG TABLET PO SCH ×2 (07:53→21:14)
[2021-02-15] MEDS: THIAMINE 100 MG TAB PO SCH ×2 (07:53→17:55)
[2021-02-15] MEDS: SODIUM BICARBONATE TAB 650 MG TAB PO SCH ×3 (07:53→21:14)
[2021-02-15] MEDS: levETIRAcetam 500 MG TAB PO SCH ×2 (07:53→21:14)
[2021-02-15] MEDS: MIDODRINE 5 MG TAB PO SCH ×3 (07:53→17:55)
[2021-02-15] MEDS: ONDANSETRON 4 MG/2 ML VIAL IVP PRN ×2 (08:10→21:26)
--- NOTE | 2021-02-15 09:39 | P.PN ---
Subjective Patient is seen in follow-up for acute kidney injury. Creatinine 2.6 as of yesterday. Labs from today are pending. Oral intake remains poor. Has been voiding. Maintained on IV fluids. Vital signs are stable. General: The patient appeared well nourished and normally developed. HEENT: Head exam is unremarkable. Neck is without jugular venous distension. LUNGS: Breath sounds decreased. HEART: Rate and Rhythm are regular. ABDOMEN: Distention noted. EXTREMITITES: No edema. Objective - Vital Signs Vital signs: Vital Signs Temp 98.3 F 02/15/21 08:00 Pulse 89 02/15/21 08:00 Resp 16 02/15/21 08:00 BP 90/49 02/15/21 08:00 Pulse Ox 100 02/15/21 08:00 Intake & Output 02/14/21 02/15/21 02/15/21 18:59 06:59 18:59 Output Total 1700 Balance -1700 Output: Urine 300 Stool 1400 Other: Voiding Method Diaper Diaper # Voids 2 2 # Bowel Movements 1 3 - Labs CBC & Chem 7: 02/14/21 06:29 02/14/21 06:29 Labs: Abnormal Lab Results - Last 24 Hours (Table) 02/14/21 02/14/21 Range/Units 06:29 06:29 PT 25.6 H (9.9-11.9) sec INR 2.49 H (0.90-1.11) Potassium 3.3 L (3.5-5.5) mmol/L Carbon Dioxide 20.6 L (21.6-31.8) mmol/L Creatinine 2.6 H (0.6-1.5) mg/dL Est GFR (CKD-EPI)AfAm 27.6 L (60.0-200.0) Est GFR (CKD-EPI)NonAf 23.8 L (60.0-200.0) BUN/Creatinine Ratio 3.85 L (12.00-20.00) Ratio Glucose 145 H (70-110) mg/dL Calcium 8.1 L (8.7-10.3) mg/dL Total Bilirubin 38.5 H* (0.3-1.2) mg/dL AST 52 H (13-35) U/L Alkaline Phosphatase 130 H (41-126) U/L Total Protein 5.7 L (6.2-8.2) g/dL Albumin 2.30 L (3.80-4.90) g/dL Globulin 3.4 H (1.6-3.3) g/dL Albumin/Globulin Ratio 0.68 L (1.60-3.17) g/dL Assessment and Plan Plan: Assessment: 1. Acute kidney injury secondary to ATN secondary to hypotension and pigment nephropathy. Creatinine 2.6 as of yesterday. Trace proteinuria on UA. No hydronephrosis noted on kidney ultrasound. 2. Metabolic acidosis secondary to acute kidney injury and GI losses status post bicarb drip. Now on oral bicarb. 3. Chronic liver disease secondary to alcohol abuse. 4. Hypokalemia from poor intake. Status post placement. 5. Hypotension due to underlying liver disease maintained on midodrine. Plan: Hep-Lock IV fluids. Morning labs pending. Check abdominal ultrasound. May need paracentesis. Patient leaning towards hospice.
[2021-02-15 09:42] LABS: African American GFR (CKD) 24.2 (60.0-200.0); Anion Gap 12.6 mmol/L (4.00-12.00); BUN/Creat Ratio 4.14 Ratio (12.00-20.00); Calcium 8.6 mg/dL (8.7-10.3); Carbon Dioxide 17.4 mmol/L (21.6-31.8); Non-African American GFR(CKD) 20.9 (60.0-200.0); Potassium 3.5 mmol/L (3.5-5.5)
--- NOTE | 2021-02-15 10:38 | US ---
EXAMINATION TYPE: US abdomen limited DATE OF EXAM: 02/15/2021 COMPARISON: US CLINICAL HISTORY: ascites. Ascites Minimal amount of ascites IMPRESSION: 1. Minimal abdominal ascites in the right perihepatic region.
[2021-02-15] MEDS: LORazepam 1 MG TAB PO PRN (13:09)
--- NOTE | 2021-02-15 20:14 | P.PN ---
Progress Note - Text Progress Note Date: 02/15/21 Presenting complaint: Tired Hospital course Patient is a 30-year-old female came in from outside facility where she presented with dark stools and generalized weakness. Patient the is found to be in severe hepatic encephalopathy patient is alert oriented 2 drowsy cannot make any decisions patient has advanced acidosis alcoholic cirrhosis able to provide me some history, patient continues to drink alcohol. Patient is profoundly jaundiced with very high meld score, patient does have moderate ascites. Patient is hypotensive with a serum creatinine of 1.7. Patient at one point of time was under hospice care when and was taken off hospice. Patient had normal serum creatinine in the past. Patient has been urinating. Patient has elevated ammonia of 1:30. Patient had bright red blood per rectum today patient apparently had dark stools. probably has variceal and hemorrhoidal bleed. Patient has highly elevated INR of around 2.26 giving her IV vitamin K 10 mg. Patient overall prognosis is extremely poor patient remains full code. Patient is also found to have positive Covid 19 02/11/2021 Patient's GI bleed resolved at this time and her INR has come down to 1.9 in after vitamin K infusion. Patient evidently has a portal gastropathy on her previous upper GI endoscopy, patient is much more awake alert oriented 3 but still mildly confused but can make her dictations for herself initially when I discussed with the patient patient doesn't want hospice does want to continue the treatment and see how she does. After extensive discussion patient wanted to be full code as well. Later in the day I was notified that patient wanted hospice evaluation because of which hospice is being consulted at this time. Patient's ammonia level has come down to 1.103 patient is having bowel movements and is on lactulose 02/12/2021 Patient is more drowsier do not have any ammonia level available at this time. Patient's serum creatinine remains at 2.3.. Patient doesn't have any more GI bleed but the INR went up again and giving another dose of IV vitamin K. 02/13/2021 Issue remains on IV fluids patient's abdominal distention is bit worse. Patient Remains at 2.3 patient presently in [place]. Patient is was do not on octreotide. Serum ammonia level has come down to 99. He with the lactulose titrating for 2-3 loose bowel movements a day patient does have anion gap as well as non-anion gap metabolic acidosis. INR is 2.3 will order 10 mg of IV vi tamin K. No more GI bleed clinically. Patient is bit more awake today but still appears lethargic. 02/14/2021 In spite of high-grade [facility] medical management no significant improvement in patient clinical condition, patient INR remains high at 2.4 in spite of the IV vitamin K 3 days in a row. Ammonia is above 100 patient is still drowsy patient meld score is very high. Patient wanted hospice hospice was ready consulted mostly probably will be discharged under hospice care tomorrow. Will not obtain any more labs. Patient's creatinine although improved to 1.97 with IV fluids. mostly probably has hepatorenal syndrome along with prerenal azotemia. 02/15/2021: Laying in bed. Tired. Jaundice. Abdominal distention. Abdominal pain. Decreased appetite. Review of systems unable to obtain due to her clinical condition Active Medications Guaifenesin (Guaifenesin Syrup 100mg/5ml 200 Mg/10 Ml Cup) 200 mg PO Q6H PRN PRN Reason: Cough Last Admin: 02/12/21 09:51 Dose: 200 mg Documented by: Lactulose (Lactulose 20 Gm/30 Ml Cup) 30 gm PO TID [facility] Last Admin: 02/15/21 17:54 Dose: Not Given Documented by: Levetiracetam (Levetiracetam 500 Mg Tab) 1,000 mg PO BID [facility] Last Admin: 02/15/21 07:53 Dose: 1,000 mg Documented by: Lidocaine HCl (Lidocaine 1% (10mg/Ml) For Iv Start) 0.1 ml INTRADERMA PER PROTOCOL PRN PRN Reason: IV Start Lorazepam (Lorazepam 2 Mg/Ml Inj) 2 mg IV Q6HR PRN PRN Reason: Seizures Lorazepam (Lorazepam 1 Mg Tab) 1 mg PO Q6HR PRN PRN Reason: Anxiety Last Admin: 02/15/21 13:09 Dose: 1 mg Documented by: Midodrine (Midodrine 5 Mg Tab) 10 mg PO AC-TID [facility] Last Admin: 02/15/21 17:55 Dose: 10 mg Documented by: Morphine Sulfate (Morphine Sulfate 2 Mg/Ml Syringe) 2 mg IVP Q4H PRN PRN Reason: Pain/Discomfort Last Admin: 02/10/21 01:45 Dose: 2 mg Documented by: Naloxone HCl (Naloxone 0.4 Mg/Ml 1 Ml Vial) 0.2 mg IV Q2M PRN PRN Reason: Opioid Reversal Ondansetron HCl (Ondansetron 4 Mg/2 Ml Vial) 4 mg IVP Q6HR PRN PRN Reason: Nausea And Vomiting Last Admin: 02/15/21 08:10 Dose: 4 mg Documented by: Pantoprazole Sodium (Pantoprazole 40 Mg/10 Ml Vial) 40 mg IVP BID [facility] Last Admin: 02/15/21 07:52 Dose: 40 mg Documented by: Rifaximin (Rifaximin 550 Mg Tablet) 550 mg PO BID [facility] Stop: 03/12/21 09:01 Last Admin: 02/15/21 07:53 Dose: 550 mg Documented by: Sodium Bicarbonate (Sodium Bicarbonate Tab 650 Mg Tab) 650 mg PO TID [facility] Last Admin: 02/15/21 17:55 Dose: 650 mg Documented by: Thiamine HCl (Thiamine 100 Mg Tab) 100 mg PO BID-W/MEALS [facility] Last Admin: 02/15/21 17:55 Dose: 100 mg Documented by: On examination: VITAL SIGNS: 98.8, 85, 16, 100/62, 100% room air GENERAL APPEARANCE: Laying in bed, bit tired, but lethargic. HEENT: Normal external appearance of nose and ear. Oral cavity normal EYES: Pupils equal. Conjunctiva icterus. NECK: JVD not raised. Mass not palpable. RESPIRATORY: Respiratory effort increased. Lungs decreased breath sounds CARDIOVASCULAR: First and second sounds normal. No edema. ABDOMEN: Distended. Mild tenderness. Liver spleen not palpable. PSYCHIATRY: Able to answer questions. But lethargic Investigations: WBC 8.7 hemoglobin 7.1 platelets 118 pro time 25.6 Potassium 3.5 creatinine 2.9 AST 52 ALT 11 ammonia 107 albumin 2.3 Abdominal ultrasound: Minimal abdominal ascites Previous abdominal ultrasound: Splenomegaly at 21.1 cm, moderate pelvic ascites. Assessment and plan -Acute upper and lower GI bleed probably variceal and hemorrhoidal bleed , received vitamin K improved GI bleed. No plans for endoscopy at this time. Patient's INR continued to be high -Severe hepatic encephalopathy for which patient is receiving lactulose and rifaximin , -Alcohol-induced Cirrhosis with highmeld score patient's overall prognosis is extremely poor, hospice was consulted as per the request of the patient -Asymptomatic Covid 19 infection -Acute renal failure: Multifactorial probably secondary to hypotension and intravascular volume depletion in spite of overall volume overload from cirrhosis.: Not improving Coagulopathy secondary to cirrhosis: Not improving -Hypokalemia potassium was replaced -Alcohol use disorder: Continued alcohol use: Until this admission -Seizure disorder for which patient is on antiseizure medications which are being continued -Pancytopenia secondary to cirrhosis Discussed briefly with the patient. Hospice has been informed. I called patient's father, because the patient wanted me to call him.. He understands prognosis is guarded. He and his will be coming to see the patient later today. We will have a family meeting tomorrow at 3 PM after I communicated with the nurse. financial sales manager involved. The father will be unable to take care of the patient at home. Need to find a place for discharge Total time spent about 45 minutes with over 25 minutes of discussion
[2021-02-16] MEDS: SODIUM BICARBONATE TAB 650 MG TAB PO SCH ×3 (07:56→22:09)
[2021-02-16] MEDS: MIDODRINE 5 MG TAB PO SCH ×3 (07:56→16:59)
[2021-02-16] MEDS: PANTOPRAZOLE 40 MG/10 ML VIAL IVP SCH ×2 (07:56→22:09)
[2021-02-16] MEDS: THIAMINE 100 MG TAB PO SCH ×2 (07:56→16:59)
[2021-02-16] MEDS: LACTULOSE 20 GM/30 ML CUP PO SCH ×3 (07:56→22:08)
[2021-02-16] MEDS: ONDANSETRON 4 MG/2 ML VIAL IVP PRN ×2 (07:57→17:08)
[2021-02-16] MEDS: levETIRAcetam 500 MG TAB PO SCH ×2 (07:57→22:09)
[2021-02-16] MEDS: LORazepam 1 MG TAB PO PRN ×3 (07:57→23:50)
[2021-02-16] MEDS: RIFAXIMIN 550 MG TABLET PO SCH ×2 (07:57→22:09)
--- NOTE | 2021-02-16 09:45 | P.PN ---
Subjective Patient is seen in follow-up for acute kidney injury. Creatinine 2.9 as of yesterday. Labs from today are pending. Oral intake remains poor. Has been voiding. IV fluids have been discontinued. Family meeting scheduled as afternoon. Hospice being considered. Vital signs are stable. General: The patient appeared well nourished and normally developed. HEENT: Head exam is unremarkable. Neck is without jugular venous distension. LUNGS: Breath sounds decreased. HEART: Rate and Rhythm are regular. ABDOMEN: Distention noted. EXTREMITITES: No edema. Objective - Vital Signs Vital signs: Vital Signs Temp 98.5 F 02/16/21 08:00 Pulse 86 02/16/21 08:00 Resp 16 02/16/21 08:00 BP 97/61 02/16/21 08:00 Pulse Ox 99 02/16/21 08:00 Intake & Output 02/15/21 02/16/21 02/16/21 18:59 06:59 18:59 Intake Total 900 Output Total 200 Balance 900 -200 Intake: Intake, IV Titration 380 Amount Sodium Chloride 0.9% 1, 380 000 ml @ 75 mls/hr IV . [id number] [facility] Rx#:[id number] Oral 520 Output: Urine 200 Other: Voiding Method Diaper # Voids 1 # Bowel Movements 1 - Labs CBC & Chem 7: 02/14/21 06:29 02/15/21 05:50 Assessment and Plan Plan: Assessment: 1. Acute kidney injury secondary to ATN secondary to hypotension and pigment nephropathy. Creatinine 2.9 as of yesterday. Trace proteinuria on UA. No hydronephrosis noted on kidney ultrasound. 2. Metabolic acidosis secondary to acute kidney injury and GI losses status post bicarb drip. Now on oral bicarb. 3. Chronic liver disease secondary to alcohol abuse. 4. Hypokalemia from poor intake. Status post placement. 5. Hypotension due to underlying liver disease maintained on midodrine. Plan: Remains off IV fluids. Encourage oral intake. Morning labs pending. Family meeting this afternoon. Hospice be considered. Overall prognosis guarded.
[2021-02-16 11:58] LABS: ALT 8 U/L (4-34); AST 45 U/L (14-36); African American GFR (CKD) 22 (>60 ml/min/1.73 sqM); Albumin 2.3 g/dL (3.5-5.0); Albumin/Globulin Ratio 0.6; Anion Gap 8 mmol/L; Blood Urea Nitrogen 15 mg/dL (7-17); Calcium 8.5 mg/dL (8.4-10.2); Carbon Dioxide 20 mmol/L (22-30); Chloride 110 mmol/L (98-107); Glucose 104 mg/dL (74-99); Non-African American GFR(CKD) 19 (>60 ml/min/1.73 sqM); Potassium 3.6 mmol/L (3.5-5.1); Sodium 138 mmol/L (137-145)
[2021-02-16 12:09] LABS: Total Bilirubin 33.9 mg/dL (0.2-1.3)
[2021-02-16 12:11] LABS: Alkaline Phosphatase 129 U/L (38-126); Total Protein 6.3 g/dL (6.3-8.2)
[2021-02-16 14:40] VITALS: BMI 28.3
--- NOTE | 2021-02-16 17:44 | P.PN ---
Progress Note - Text Progress Note Date: 02/16/21 Presenting complaint: Tired Hospital course Patient is a 30-year-old female came in from outside facility where she presented with dark stools and generalized weakness. Patient the is found to be in severe hepatic encephalopathy patient is alert oriented 2 drowsy cannot make any decisions patient has advanced acidosis alcoholic cirrhosis able to provide me some history, patient continues to drink alcohol. Patient is profoundly jaundiced with very high meld score, patient does have moderate ascites. Patient is hypotensive with a serum creatinine of 1.7. Patient at one point of time was under hospice care when and was taken off hospice. Patient had normal serum creatinine in the past. Patient has been urinating. Patient has elevated ammonia of 1:30. Patient had bright red blood per rectum today patient apparently had dark stools. probably has variceal and hemorrhoidal bleed. Patient has highly elevated INR of around 2.26 giving her IV vitamin K 10 mg. Patient overall prognosis is extremely poor patient remains full code. Patient is also found to have positive Covid 19 02/11/2021 Patient's GI bleed resolved at this time and her INR has come down to 1.9 in after vitamin K infusion. Patient evidently has a portal gastropathy on her previous upper GI endoscopy, patient is much more awake alert oriented 3 but still mildly confused but can make her dictations for herself initially when I discussed with the patient patient doesn't want hospice does want to continue the treatment and see how she does. After extensive discussion patient wanted to be full code as well. Later in the day I was notified that patient wanted hospice evaluation because of which hospice is being consulted at this time. Patient's ammonia level has come down to 1.103 patient is having bowel movements and is on lactulose 02/12/2021 Patient is more drowsier do not have any ammonia level available at this time. Patient's serum creatinine remains at 2.3.. Patient doesn't have any more GI bleed but the INR went up again and giving another dose of IV vitamin K. 02/13/2021 Issue remains on IV fluids patient's abdominal distention is bit worse. Patient Remains at 2.3 patient presently in [place]. Patient is was do not on octreotide. Serum ammonia level has come down to 99. He with the lactulose titrating for 2-3 loose bowel movements a day patient does have anion gap as well as non-anion gap metabolic acidosis. INR is 2.3 will order 10 mg of IV v itamin K. No more GI bleed clinically. Patient is bit more awake today but still appears lethargic. 02/14/2021 In spite of high-grade [facility] medical management no significant improvement in patient clinical condition, patient INR remains high at 2.4 in spite of the IV vitamin K 3 days in a row. Ammonia is above 100 patient is still drowsy patient meld score is very high. Patient wanted hospice hospice was ready consulted mostly probably will be discharged under hospice care tomorrow. Will not obtain any more labs. Patient's creatinine although improved to 1.97 with IV fluids. mostly probably has hepatorenal syndrome along with prerenal azotemia. 02/15/2021: Laying in bed. Tired. Jaundice. Abdominal distention. Abdominal pain. Decreased appetite. 02/16/2021: Laying in bed. Tired. Awake. Jaundiced. Eating about 25%. Able to answer questions. Review of systems: Was done for constitutional, cardiovascular, GI, pulmonary. relevant finding as above Active Medications Guaifenesin (Guaifenesin Syrup 100mg/5ml 200 Mg/10 Ml Cup) 200 mg PO Q6H PRN PRN Reason: Cough Last Admin: 02/12/21 09:51 Dose: 200 mg Documented by: Lactulose (Lactulose 20 Gm/30 Ml Cup) 30 gm PO TID [facility] Last Admin: 02/16/21 16:59 Dose: 30 gm Documented by: Levetiracetam (Levetiracetam 500 Mg Tab) 1,000 mg PO BID [facility] Last Admin: 02/16/21 07:57 Dose: 1,000 mg Documented by: Lidocaine HCl (Lidocaine 1% (10mg/Ml) For Iv Start) 0.1 ml INTRADERMA PER PROTOCOL PRN PRN Reason: IV Start Lorazepam (Lorazepam 2 Mg/Ml Inj) 2 mg IV Q6HR PRN PRN Reason: Seizures Lorazepam (Lorazepam 1 Mg Tab) 1 mg PO Q6HR PRN PRN Reason: Anxiety Last Admin: 02/16/21 17:08 Dose: 1 mg Documented by: Midodrine (Midodrine 5 Mg Tab) 10 mg PO AC-TID [facility] Last Admin: 02/16/21 16:59 Dose: 10 mg Documented by: Morphine Sulfate (Morphine Sulfate 2 Mg/Ml Syringe) 2 mg IVP Q4H PRN PRN Reason: Pain/Discomfort Last Admin: 02/10/21 01:45 Dose: 2 mg Documented by: Naloxone HCl (Naloxone 0.4 Mg/Ml 1 Ml Vial) 0.2 mg IV Q2M PRN PRN Reason: Opioid Reversal Ondansetron HCl (Ondansetron 4 Mg/2 Ml Vial) 4 mg IVP Q6HR PRN PRN Reason: Nausea And Vomiting Last Admin: 02/16/21 17:08 Dose: 4 mg Documented by: Pantoprazole Sodium (Pantoprazole 40 Mg/10 Ml Vial) 40 mg IVP BID [facility] Last Admin: 02/16/21 07:56 Dose: 40 mg Documented by: Rifaximin (Rifaximin 550 Mg Tablet) 550 mg PO BID [facility] Stop: 03/12/21 09:01 Last Admin: 02/16/21 07:57 Dose: 550 mg Documented by: Sodium Bicarbonate (Sodium Bicarbonate Tab 650 Mg Tab) 650 mg PO TID [facility] Last Admin: 02/16/21 16:59 Dose: 650 mg Documented by: Thiamine HCl (Thiamine 100 Mg Tab) 100 mg PO BID-W/MEALS [facility] Last Admin: 02/16/21 16:59 Dose: 100 mg Documented by: On examination: VITAL SIGNS: 98.8, 83, 18, 98.62, 99% room air GENERAL APPEARANCE: Laying in bed, bit tired, awake, tired HEENT: Normal external appearance of nose and ear. Oral cavity normal EYES: Pupils equal. Conjunctiva icterus. NECK: JVD not raised. Mass not palpable. RESPIRATORY: Respiratory effort increased. Lungs decreased breath sounds CARDIOVASCULAR: First and second sounds normal. No edema. ABDOMEN: Distended. Mild tenderness. Liver spleen not palpable. PSYCHIATRY: Able to answer questions. Investigations: January 17: Potassium 3.6 bilirubin 33.9 WBC 8.7 hemoglobin 7.1 platelets 118 pro time 25.6 Potassium 3.5 creatinine 2.9 AST 52 ALT 11 ammonia 107 albumin 2.3 Abdominal ultrasound: Minimal abdominal ascites Previous abdominal ultrasound: Splenomegaly at 21.1 cm, moderate pelvic ascites. Assessment and plan -Acute upper and lower GI bleed probably variceal and hemorrhoidal bleed , received vitamin K improved GI bleed. No plans for endoscopy at this time. Patient's INR continued to be high -Severe hepatic encephalopathy for which patient is receiving lactulose and rifaximin , -Alcohol-induced Cirrhosis with highmeld score patient's overall prognosis is extremely poor, hospice was consulted as per the request of the patient -Asymptomatic Covid 19 infection -Acute renal failure: Multifactorial probably secondary to hypotension and intravascular volume depletion in spite of overall volume overload from cirrhosis.: Not improving Coagulopathy secondary to cirrhosis: Not improving -Hypokalemia potassium was replaced -Alcohol use disorder: Continued alcohol use: Until this admission -Seizure disorder for which patient is on antiseizure medications which are being continued -Pancytopenia secondary to cirrhosis Prognosis remains guarded. Henri criminal justice social worker is working with hospice. Patient eating about 25%. Family meeting scheduled today. Advanced care planning: Had a meeting in patient's room with the patient, her father and her brother. Patient's mother could not make it because she was at work. Henri the criminal justice social worker will also present. Everybody understands the guarded prognosis. Patient had previously been under hospice then took herself off the same. Patient does want to go into hospice. I did remind the patient and the family that with complete abstinence from alcohol there may be some improvement at least temporarily . Patient is agreed to proceed with our DO NOT RESUSCITATE CODE STATUS. Patient maintains decision-making capacity. Told the father the brother to look into getting the part of fertility after they discuss this with the patient. side door worker looking into placement for hospice. Total time spent about 20 minutes for this
[2021-02-17 09:19] LABS: ALT 8 U/L (4-34); AST 45 U/L (14-36); African American GFR (CKD) 20 (>60 ml/min/1.73 sqM); Albumin 2.5 g/dL (3.5-5.0); Albumin/Globulin Ratio 0.6; Anion Gap 11 mmol/L; Blood Urea Nitrogen 16 mg/dL (7-17); Calcium 8.9 mg/dL (8.4-10.2); Carbon Dioxide 19 mmol/L (22-30); Chloride 112 mmol/L (98-107); Globulin 4.1 g/dL; Glucose 85 mg/dL (74-99); Non-African American GFR(CKD) 17 (>60 ml/min/1.73 sqM); Potassium 3.4 mmol/L (3.5-5.1); Sodium 142 mmol/L (137-145)
[2021-02-17] MEDS: PANTOPRAZOLE 40 MG/10 ML VIAL IVP SCH (09:21)
[2021-02-17] MEDS: THIAMINE 100 MG TAB PO SCH ×2 (09:22→16:47)
[2021-02-17] MEDS: MIDODRINE 5 MG TAB PO SCH ×3 (09:22→16:47)
[2021-02-17] MEDS: SODIUM BICARBONATE TAB 650 MG TAB PO SCH ×3 (09:22→21:01)
[2021-02-17] MEDS: RIFAXIMIN 550 MG TABLET PO SCH (09:23)
[2021-02-17] MEDS: LACTULOSE 20 GM/30 ML CUP PO SCH ×3 (09:23→21:01)
[2021-02-17] MEDS: levETIRAcetam 500 MG TAB PO SCH ×2 (09:23→21:14)
--- NOTE | 2021-02-17 09:37 | P.PN ---
Subjective Patient is seen in follow-up for acute kidney injury. Creatinine 3.1 as of yesterday. Labs from today are pending. Oral intake remains poor. Has been voiding. Hospice still being considered. Vital signs are stable. General: The patient appeared well nourished and normally developed. HEENT: Head exam is unremarkable. Neck is without jugular venous distension. LUNGS: Breath sounds decreased. HEART: Rate and Rhythm are regular. ABDOMEN: Distention noted. EXTREMITITES: No edema. Objective - Vital Signs Vital signs: Vital Signs Temp 98.5 F 02/17/21 08:00 Pulse 82 02/17/21 08:00 Resp 18 02/17/21 08:00 BP 101/60 02/17/21 08:00 Pulse Ox 98 02/17/21 08:00 Intake & Output 02/16/21 02/17/21 02/17/21 18:59 06:59 18:59 Intake Total 520 Output Total 962 200 Balance -442 -200 Weight 77.111 kg Intake: Oral 520 Output: Urine 960 Stool 200 Urine/Stool Mix 2 Other: Voiding Method Diaper # Voids 1 3 # Bowel Movements 1 3 - Labs CBC & Chem 7: 02/14/21 06:29 02/16/21 11:21 Labs: Abnormal Lab Results - Last 24 Hours (Table) 02/16/21 Range/Units 11:21 Chloride 110 H (98-107) mmol/L Carbon Dioxide 20 L (22-30) mmol/L Creatinine 3.18 H (0.52-1.04) mg/dL Glucose 104 H (74-99) mg/dL Total Bilirubin 33.9 H* (0.2-1.3) mg/dL AST 45 H (14-36) U/L Alkaline Phosphatase 129 H (38-126) U/L Albumin 2.3 L (3.5-5.0) g/dL Assessment and Plan Plan: Assessment: 1. Acute kidney injury secondary to ATN secondary to hypotension and pigment nephropathy. Creatinine 3.1 as of yesterday. Trace proteinuria on UA. No hydr onephrosis noted on kidney ultrasound. 2. Metabolic acidosis secondary to acute kidney injury and GI losses status post bicarb drip. Now on oral bicarb. Better. 3. Chronic liver disease secondary to alcohol abuse. 4. Hypokalemia from poor intake. Status post placement. 5. Hypotension due to underlying liver disease maintained on midodrine. Plan: Remains off IV fluids. Encourage oral intake. Morning labs pending. Hospice decision still pending. Overall prognosis guarded. Add spironolactone.
[2021-02-17 09:40] LABS: Total Bilirubin 35.3 mg/dL (0.2-1.3)
[2021-02-17 09:43] LABS: Alkaline Phosphatase 150 U/L (38-126); Total Protein 6.6 g/dL (6.3-8.2)
[2021-02-17] MEDS: SPIRONOLACTONE 25 MG TAB PO SCH ×2 (10:47→21:01)
[2021-02-17] MEDS ORDERED: POTASSIUM CHLORIDE ER 20 MEQ TAB.ER PO STA (16:36)
--- NOTE | 2021-02-17 19:26 | P.PN ---
Progress Note - Text Progress Note Date: 02/17/21 Presenting complaint: Tired Hospital course Patient is a 30-year-old female came in from outside facility where she presented with dark stools and generalized weakness. Patient the is found to be in severe hepatic encephalopathy patient is alert oriented 2 drowsy cannot make any decisions patient has advanced acidosis alcoholic cirrhosis able to provide me some history, patient continues to drink alcohol. Patient is profoundly jaundiced with very high meld score, patient does have moderate ascites. Patient is hypotensive with a serum creatinine of 1.7. Patient at one point of time was under hospice care when and was taken off hospice. Patient had normal serum creatinine in the past. Patient has been urinating. Patient has elevated ammonia of 1:30. Patient had bright red blood per rectum today patient apparently had dark stools. probably has variceal and hemorrhoidal bleed. Patient has highly elevated INR of around 2.26 giving her IV vitamin K 10 mg. Patient overall prognosis is extremely poor patient remains full code. Patient is also found to have positive Covid 19 02/11/2021 Patient's GI bleed resolved at this time and her INR has come down to 1.9 in after vitamin K infusion. Patient evidently has a portal gastropathy on her previous upper GI endoscopy, patient is much more awake alert oriented 3 but still mildly confused but can make her dictations for herself initially when I discussed with the patient patient doesn't want hospice does want to continue the treatment and see how she does. After extensive discussion patient wanted to be full code as well. Later in the day I was notified that patient wanted hospice evaluation because of which hospice is being consulted at this time. Patient's ammonia level has come down to 1.103 patient is having bowel movements and is on lactulose 02/12/2021 Patient is more drowsier do not have any ammonia level available at this time. Patient's serum creatinine remains at 2.3.. Patient doesn't have any more GI bleed but the INR went up again and giving another dose of IV vitamin K. 02/13/2021 Issue remains on IV fluids patient's abdominal distention is bit worse. Patient Remains at 2.3 patient presently in [place]. Patient is was do not on octreotide. Serum ammonia level has come down to 99. He with the lactulose titrating for 2-3 loose bowel movements a day patient does have anion gap as well as non-anion gap metabolic acidosis. INR is 2.3 will order 10 mg of IV v itamin K. No more GI bleed clinically. Patient is bit more awake today but still appears lethargic. 02/14/2021 In spite of high-grade [facility] medical management no significant improvement in patient clinical condition, patient INR remains high at 2.4 in spite of the IV vitamin K 3 days in a row. Ammonia is above 100 patient is still drowsy patient meld score is very high. Patient wanted hospice hospice was ready consulted mostly probably will be discharged under hospice care tomorrow. Will not obtain any more labs. Patient's creatinine although improved to 1.97 with IV fluids. mostly probably has hepatorenal syndrome along with prerenal azotemia. 02/15/2021: Laying in bed. Tired. Jaundice. Abdominal distention. Abdominal pain. Decreased appetite. 02/16/2021: Laying in bed. Tired. Awake. Jaundiced. Eating about 25%. Able to answer questions. 02/17/2021: Laying in bed. Tired. Eating some. Sluggish. answering occasional question Review of systems: Was done for constitutional, cardiovascular, GI, pulmonary. relevant finding as above Active Medications Guaifenesin (Guaifenesin Syrup 100mg/5ml 200 Mg/10 Ml Cup) 200 mg PO Q6H PRN PRN Reason: Cough Last Admin: 02/12/21 09:51 Dose: 200 mg Documented by: Lactulose (Lactulose 20 Gm/30 Ml Cup) 30 gm PO TID [facility] Last Admin: 02/17/21 16:47 Dose: 30 gm Documented by: Levetiracetam (Levetiracetam 500 Mg Tab) 1,000 mg PO BID [facility] Last Admin: 02/17/21 09:23 Dose: 1,000 mg Documented by: Lidocaine HCl (Lidocaine 1% (10mg/Ml) For Iv Start) 0.1 ml INTRADERMA PER PROTOCOL PRN PRN Reason: IV Start Lorazepam (Lorazepam 2 Mg/Ml Inj) 2 mg IV Q6HR PRN PRN Reason: Seizures Lorazepam (Lorazepam 1 Mg Tab) 1 mg PO Q6HR PRN PRN Reason: Anxiety Last Admin: 02/16/21 23:50 Dose: 1 mg Documented by: Midodrine (Midodrine 5 Mg Tab) 10 mg PO AC-TID [facility] Last Admin: 02/17/21 16:47 Dose: 10 mg Documented by: Morphine Sulfate (Morphine Sulfate 2 Mg/Ml Syringe) 2 mg IVP Q4H PRN PRN Reason: Pain/Discomfort Last Admin: 02/10/21 01:45 Dose: 2 mg Documented by: Naloxone HCl (Naloxone 0.4 Mg/Ml 1 Ml Vial) 0.2 mg IV Q2M PRN PRN Reason: Opioid Reversal Ondansetron HCl (Ondansetron 4 Mg/2 Ml Vial) 4 mg IVP Q6HR PRN PRN Reason: Nausea And Vomiting Last Admin: 02/16/21 17:08 Dose: 4 mg Documented by: Pantoprazole Sodium (Pantoprazole 40 Mg Tablet) 40 mg PO BID [facility] Sodium Bicarbonate (Sodium Bicarbonate Tab 650 Mg Tab) 650 mg PO TID [facility] Last Admin: 02/17/21 16:47 Dose: 650 mg Documented by: Spironolactone (Spironolactone 25 Mg Tab) 25 mg PO BID [facility] Last Admin: 02/17/21 10:47 Dose: 25 mg Documented by: Thiamine HCl (Thiamine 100 Mg Tab) 100 mg PO BID-W/MEALS [facility] Last Admin: 02/17/21 16:47 Dose: 100 mg Documented by: On examination: VITAL SIGNS: 98.5, 82, 18, 10 1 x 60, 98% room air GENERAL APPEARANCE: Laying in bed, lethargic but arousable HEENT: Normal external appearance of nose and ear. Oral cavity normal EYES: Pupils equal. Conjunctiva icterus. NECK: JVD not raised. Mass not palpable. RESPIRATORY: Respiratory effort increased. Lungs decreased breath sounds CARDIOVASCULAR: First and second sounds normal. No edema. ABDOMEN: Distended. Mild tenderness. Liver spleen not palpable. PSYCHIATRY: Able to answer questions. Investigations: January 18: Potassium 3.4 creatinine 3.4 to bilirubin 35.3 January 17: Potassium 3.6 bilirubin 33.9 WBC 8.7 hemoglobin 7.1 platelets 118 pro time 25.6 Potassium 3.5 creatinine 2.9 AST 52 ALT 11 ammonia 107 albumin 2.3 Abdominal ultrasound: Minimal abdominal ascites Previous abdominal ultrasound: Splenomegaly at 21.1 cm, moderate pelvic ascites. Assessment and plan -Acute upper and lower GI bleed probably variceal and hemorrhoidal bleed , received vitamin K improved GI bleed. No plans for endoscopy at this time. Patient's INR continued to be high -Severe hepatic encephalopathy for which patient is receiving lactulose and rifaximin : Slow to respond, -Alcohol-induced Cirrhosis with highmeld score patient's overall prognosis is extremely poor, hospice was consulted as per the request of the patient -Asymptomatic Covid 19 infection -Acute renal failure: Multifactorial probably secondary to hypotension and intravascular volume depletion in spite of overall volume overload from cirrhosis.: Worsening Coagulopathy secondary to cirrhosis: Not improving -Hypokalemia potassium was replaced -Alcohol use disorder: Continued alcohol use: Until this admission -Seizure disorder for which patient is on antiseizure medications which are being continued -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 Looking into placement. Prognosis guarded. Continue current medications.
[2021-02-17] MEDS: PANTOPRAZOLE 40 MG TABLET PO SCH (21:01)
[2021-02-18] MEDS: SODIUM BICARBONATE TAB 650 MG TAB PO SCH ×3 (08:06→20:28)
[2021-02-18] MEDS: THIAMINE 100 MG TAB PO SCH ×2 (08:06→17:42)
[2021-02-18] MEDS: MIDODRINE 5 MG TAB PO SCH ×3 (08:06→17:42)
[2021-02-18] MEDS: PANTOPRAZOLE 40 MG TABLET PO SCH ×2 (08:06→20:27)
[2021-02-18] MEDS: levETIRAcetam 500 MG TAB PO SCH ×2 (08:07→20:28)
[2021-02-18] MEDS: SPIRONOLACTONE 25 MG TAB PO SCH ×2 (08:07→20:27)
[2021-02-18] MEDS: LACTULOSE 20 GM/30 ML CUP PO SCH ×3 (08:07→20:27)
[2021-02-18 08:32] LABS: ALT 8 U/L (4-34); AST 48 U/L (14-36); African American GFR (CKD) 18 (>60 ml/min/1.73 sqM); Albumin 2.5 g/dL (3.5-5.0); Albumin/Globulin Ratio 0.6; Anion Gap 10 mmol/L; Blood Urea Nitrogen 18 mg/dL (7-17); Calcium 8.8 mg/dL (8.4-10.2); Carbon Dioxide 19 mmol/L (22-30); Chloride 112 mmol/L (98-107); Globulin 4.2 g/dL; Glucose 97 mg/dL (74-99); Magnesium 2.1 mg/dL (1.6-2.3); Non-African American GFR(CKD) 16 (>60 ml/min/1.73 sqM); Potassium 3.5 mmol/L (3.5-5.1); Sodium 141 mmol/L (137-145)
[2021-02-18 09:25] LABS: Total Bilirubin 34.5 mg/dL (0.2-1.3); Total Protein 6.7 g/dL (6.3-8.2)
[2021-02-18 09:26] LABS: Alkaline Phosphatase 144 U/L (38-126)
[2021-02-18] MEDS ORDERED: POTASSIUM CHLORIDE ER 20 MEQ TAB.ER PO STA (09:29)
--- NOTE | 2021-02-18 09:30 | P.PN ---
Subjective Patient is seen in follow-up for acute kidney injury. Creatinine 3.65 today. Feels weak. Oral intake poor. Has been voiding. Vital signs are stable. General: The patient appeared well nourished and normally developed. HEENT: Head exam is unremarkable. Neck is without jugular venous distension. LUNGS: Breath sounds decreased. HEART: Rate and Rhythm are regular. ABDOMEN: Distention noted. EXTREMITITES: No edema. Objective - Vital Signs Vital signs: Vital Signs Temp 98.3 F 02/18/21 02:19 Pulse 84 02/18/21 02:19 Resp 16 02/18/21 02:19 BP 98/57 02/18/21 02:19 Pulse Ox 94 L 02/18/21 02:19 Intake & Output 02/17/21 02/18/21 02/18/21 18:59 06:59 18:59 Intake Total 1080 480 Output Total 3 4 Balance 1077 476 Intake: Oral 1080 480 Output: Urine 4 Urine/Stool Mix 3 Other: Voiding Method Diaper # Voids 3 # Bowel Movements 1 - Labs CBC & Chem 7: 02/14/21 06:29 02/18/21 07:34 Labs: Abnormal Lab Results - Last 24 Hours (Table) 02/17/21 02/18/21 Range/Units 07:49 07:34 Potassium 3.4 L (3.5-5.1) mmol/L Chloride 112 H 112 H (98-107) mmol/L Carbon Dioxide 19 L 19 L (22-30) mmol/L BUN 18 H (7-17) mg/dL Creatinine 3.42 H 3.65 H (0.52-1.04) mg/dL Total Bilirubin 35.3 H* 34.5 H* (0.2-1.3) mg/dL AST 45 H 48 H (14-36) U/L Alkaline Phosphatase 150 H 144 H (38-126) U/L Albumin 2.5 L 2.5 L (3.5-5.0) g/dL Assessment and Plan Plan: Assessment: 1. Acute kidney injury secondary to ATN secondary to hypotension and pigment nephropathy. Creatinine 3.65 today. Trace proteinuria on UA. No hydronephrosis noted on kidney ultrasound. 2. Metabolic acidosis secondary to acute kidney injury and GI losses status p ost bicarb drip. Now on oral bicarb. Stable. 3. Chronic liver disease secondary to alcohol abuse. 4. Hypokalemia from poor intake. Status post placement. 5. Hypotension due to underlying liver disease maintained on midodrine. Plan: Remains off IV fluids. Encourage oral intake. Maintain spironolactone. Overall prognosis guarded. Possible discharge tomorrow to [facility] with hospice.
[2021-02-18] MEDS: MORPHINE SULFATE 2 MG/ML SYRINGE IVP PRN (14:18)
--- NOTE | 2021-02-18 16:37 | P.PN ---
Progress Note - Text Progress Note Date: 02/18/21 Presenting complaint: Tired Hospital course Patient is a 30-year-old female came in from outside facility where she presented with dark stools and generalized weakness. Patient the is found to be in severe hepatic encephalopathy patient is alert oriented 2 drowsy cannot make any decisions patient has advanced acidosis alcoholic cirrhosis able to provide me some history, patient continues to drink alcohol. Patient is profoundly jaundiced with very high meld score, patient does have moderate ascites. Patient is hypotensive with a serum creatinine of 1.7. Patient at one point of time was under hospice care when and was taken off hospice. Patient had normal serum creatinine in the past. Patient has been urinating. Patient has elevated ammonia of 1:30. Patient had bright red blood per rectum today patient apparently had dark stools. probably has variceal and hemorrhoidal bleed. Patient has highly elevated INR of around 2.26 giving her IV vitamin K 10 mg. Patient overall prognosis is extremely poor patient remains full code. Patient is also found to have positive Covid 19 02/11/2021 Patient's GI bleed resolved at this time and her INR has come down to 1.9 in after vitamin K infusion. Patient evidently has a portal gastropathy on her previous upper GI endoscopy, patient is much more awake alert oriented 3 but still mildly confused but can make her dictations for herself initially when I discussed with the patient patient doesn't want hospice does want to continue the treatment and see how she does. After extensive discussion patient wanted to be full code as well. Later in the day I was notified that patient wanted hospice evaluation because of which hospice is being consulted at this time. Patient's ammonia level has come down to 1.103 patient is having bowel movements and is on lactulose 02/12/2021 Patient is more drowsier do not have any ammonia level available at this time. Patient's serum creatinine remains at 2.3.. Patient doesn't have any more GI bleed but the INR went up again and giving another dose of IV vitamin K. 02/13/2021 Issue remains on IV fluids patient's abdominal distention is bit worse. Patient Remains at 2.3 patient presently in [place]. Patient is was do not on octreotide. Serum ammonia level has come down to 99. He with the lactulose titrating for 2-3 loose bowel movements a day patient does have anion gap as well as non-anion gap metabolic acidosis. INR is 2.3 will order 10 mg of IV v itamin K. No more GI bleed clinically. Patient is bit more awake today but still appears lethargic. 02/14/2021 In spite of high-grade [facility] medical management no significant improvement in patient clinical condition, patient INR remains high at 2.4 in spite of the IV vitamin K 3 days in a row. Ammonia is above 100 patient is still drowsy patient meld score is very high. Patient wanted hospice hospice was ready consulted mostly probably will be discharged under hospice care tomorrow. Will not obtain any more labs. Patient's creatinine although improved to 1.97 with IV fluids. mostly probably has hepatorenal syndrome along with prerenal azotemia. 02/15/2021: Laying in bed. Tired. Jaundice. Abdominal distention. Abdominal pain. Decreased appetite. 02/16/2021: Laying in bed. Tired. Awake. Jaundiced. Eating about 25%. Able to answer questions. 02/17/2021: Laying in bed. Tired. Eating some. Sluggish. answering occasional question 02/18/2021: Laying in bed. Awake, tired, lethargic. Barely eating. Patient's parents at the bedside. An 8-year-old daughter. Able to answer some questions Review of systems: Was done for constitutional, cardiovascular, GI, pulmonary. relevant finding as above Active Medications Guaifenesin (Guaifenesin Syrup 100mg/5ml 200 Mg/10 Ml Cup) 200 mg PO Q6H PRN PRN Reason: Cough Last Admin: 02/12/21 09:51 Dose: 200 mg Documented by: Lactulose (Lactulose 20 Gm/30 Ml Cup) 30 gm PO TID [facility] Last Admin: 02/18/21 08:07 Dose: 30 gm Documented by: Levetiracetam (Levetiracetam 500 Mg Tab) 1,000 mg PO BID [facility] Last Admin: 02/18/21 08:07 Dose: 1,000 mg Documented by: Lidocaine HCl (Lidocaine 1% (10mg/Ml) For Iv Start) 0.1 ml INTRADERMA PER PROTOCOL PRN PRN Reason: IV Start Lorazepam (Lorazepam 2 Mg/Ml Inj) 2 mg IV Q6HR PRN PRN Reason: Seizures Lorazepam (Lorazepam 1 Mg Tab) 1 mg PO Q6HR PRN PRN Reason: Anxiety Last Admin: 02/16/21 23:50 Dose: 1 mg Documented by: Midodrine (Midodrine 5 Mg Tab) 10 mg PO AC-TID [facility] Last Admin: 02/18/21 14:18 Dose: 10 mg Documented by: Morphine Sulfate (Morphine Sulfate 2 Mg/Ml Syringe) 2 mg IVP Q4H PRN PRN Reason: Pain/Discomfort Last Admin: 02/18/21 14:18 Dose: 2 mg Documented by: Naloxone HCl (Naloxone 0.4 Mg/Ml 1 Ml Vial) 0.2 mg IV Q2M PRN PRN Reason: Opioid Reversal Ondansetron HCl (Ondansetron 4 Mg/2 Ml Vial) 4 mg IVP Q6HR PRN PRN Reason: Nausea And Vomiting Last Admin: 02/16/21 17:08 Dose: 4 mg Documented by: Pantoprazole Sodium (Pantoprazole 40 Mg Tablet) 40 mg PO BID [facility] Last Admin: 02/18/21 08:06 Dose: 40 mg Documented by: Sodium Bicarbonate (Sodium Bicarbonate Tab 650 Mg Tab) 650 mg PO TID [facility] Last Admin: 02/18/21 14:18 Dose: 650 mg Documented by: Spironolactone (Spironolactone 25 Mg Tab) 25 mg PO BID [facility] Last Admin: 02/18/21 08:07 Dose: 25 mg Documented by: Thiamine HCl (Thiamine 100 Mg Tab) 100 mg PO BID-W/MEALS [facility] Last Admin: 02/18/21 08:06 Dose: 100 mg Documented by: On examination: VITAL SIGNS: 98.4, 69, 16, 92 x 50, 99% room air GENERAL APPEARANCE: Laying in bed, lethargic but arousable HEENT: Normal external appearance of nose and ear. Oral cavity normal EYES: Pupils equal. Conjunctiva icterus. NECK: JVD not raised. Mass not palpable. RESPIRATORY: Respiratory effort increased. Lungs decreased breath sounds CARDIOVASCULAR: First and second sounds normal. No edema. ABDOMEN: Distended. Mild tenderness. Liver spleen not palpable. PSYCHIATRY: Able to answer questions. Lethargic Investigations: February 18: Potassium 3.5 creatinine 3.65 February 17: Potassium 3.4 creatinine 3.4 to bilirubin 35.3 February 16: Potassium 3.6 bilirubin 33.9 WBC 8.7 hemoglobin 7.1 platelets 118 pro time 25.6 Potassium 3.5 creatinine 2.9 AST 52 ALT 11 ammonia 107 albumin 2.3 Abdominal ultrasound: Minimal abdominal ascites Previous abdominal ultrasound: Splenomegaly at 21.1 cm, moderate pelvic ascites. Assessment and plan -Acute upper and lower GI bleed probably variceal and hemorrhoidal bleed , received vitamin K improved GI bleed. No plans for endoscopy at this time. Patient's INR continued to be high -Severe hepatic encephalopathy for which patient is receiving lactulose and rifaximin : Slow to respond, -Alcohol-induced Cirrhosis with highmeld score patient's overall prognosis is extremely poor, hospice was consulted as per the request of the patient -Asymptomatic Covid 19 infection -Acute renal failure: Multifactorial probably secondary to hypotension and intravascular volume depletion in spite of overall volume overload from cirrhosis.: Worsening Coagulopathy secondary to cirrhosis: Not improving -Hypokalemia potassium was replaced -Alcohol use disorder: Continued alcohol use: Until this admission -Seizure disorder for which patient is on antiseizure medications which are being continued -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 Spoke to the patient. Spoke to the social services manager. Possible discharge to [facility] tomorrow. Current medications to continue.
[2021-02-18] MEDS: ONDANSETRON 4 MG/2 ML VIAL IVP PRN (17:46)
[2021-02-19] MEDS: MORPHINE SULFATE 2 MG/ML SYRINGE IVP PRN (08:29)
[2021-02-19] MEDS: SPIRONOLACTONE 25 MG TAB PO SCH (08:33)
[2021-02-19] MEDS: LACTULOSE 20 GM/30 ML CUP PO SCH (08:33)
[2021-02-19] MEDS: PANTOPRAZOLE 40 MG TABLET PO SCH (08:33)
[2021-02-19] MEDS: THIAMINE 100 MG TAB PO SCH (08:33)
[2021-02-19] MEDS: levETIRAcetam 500 MG TAB PO SCH (08:33)
[2021-02-19] MEDS: SODIUM BICARBONATE TAB 650 MG TAB PO SCH ×2 (08:33→14:28)
[2021-02-19] MEDS: MIDODRINE 5 MG TAB PO SCH ×2 (08:33→14:27)
--- NOTE | 2021-02-19 12:01 | P.PN ---
Subjective Patient is seen in follow-up for acute kidney injury. Creatinine 3.65 as of yesterday. Feels fatigued. Oral intake poor. Vital signs are stable. General: The patient appeared well nourished and normally developed. HEENT: Head exam is unremarkable. Neck is without jugular venous distension. LUNGS: Breath sounds decreased. HEART: Rate and Rhythm are regular. ABDOMEN: Distention noted. EXTREMITITES: No edema. Objective - Vital Signs Vital signs: Vital Signs Temp 98.5 F 02/19/21 07:40 Pulse 91 02/19/21 07:40 Resp 18 02/19/21 07:40 BP 110/69 02/19/21 07:40 Pulse Ox 99 02/19/21 07:40 Intake & Output 02/18/21 02/19/21 02/19/21 18:59 06:59 18:59 Intake Total 458 Output Total 200 Balance 458 -200 Intake: Oral 458 Output: Stool 200 Other: Voiding Method Diaper Diaper Diaper # Voids 1 2 # Bowel Movements 3 2 - Labs CBC & Chem 7: 02/14/21 06:29 02/18/21 07:34 Assessment and Plan Plan: Assessment: 1. Acute kidney injury secondary to ATN secondary to hypotension and pigment nephropathy. Creatinine 3.65 yesterday. Trace proteinuria on UA. No hydronephrosis noted on kidney ultrasound. 2. Metabolic acidosis secondary to acute kidney injury and GI losses status post bicarb drip. Now on oral bicarb. Stable. 3. Chronic liver disease secondary to alcohol abuse. 4. Hypokalemia from poor intake. Status post placement. 5. Hypotension due to underlying liver disease maintained on midodrine. Plan: Remains off IV fluids. Encourage oral intake. Maintain spironolactone. Overall prognosis guarded. Plan for discharge on hospice today
--- NOTE | 2021-02-19 12:32 | P.DS ---
Providers Date of admission: 02/09/21 20:48 Expected date of discharge: 02/19/21 Attending physician: Gonzales Muñiz Consults: 02/10/21 09:41 Consult Physician Routine Consulting Provider: Aria Singh Consult Reason/Comments: Hepatorenal syndrome Do you want consulting provider notified?: Yes Primary care physician: [facility] Course: Presenting complaint: Tired Hospital course Patient is a 30-year-old female came in from outside facility where she presented with dark stools and generalized weakness. Patient the is found to be in severe hepatic encephalopathy patient is alert oriented 2 drowsy cannot make any decisions patient has advanced acidosis alcoholic cirrhosis able to provide me some history, patient continues to drink alcohol. Patient is profoundly jaundiced with very high meld score, patient does have moderate ascites. Patient is hypotensive with a serum creatinine of 1.7. Patient at one point of time was under hospice care when and was taken off hospice. Patient had normal serum creatinine in the past. Patient has been urinating. Patient has elevated ammonia of 1:30. Patient had bright red blood per rectum today patient apparently had dark stools. probably has variceal and hemorrhoidal bleed. Patient has highly elevated INR of around 2.26 giving her IV vitamin K 10 mg. Patient overall prognosis is extremely poor patient remains full code. After discussion with the patient and later on involvement of the parent's patient did decide to proceed with hospice. [Patient is also found to have positive Covid 19-asymptomatic. Note patient previously was COVID 19 positive. Few weeks ago.] 02/11/2021 Patient's GI bleed resolved at this time and her INR has come down to 1.9 in after vitamin K infusion. Patient evidently has a portal gastropathy on her previous upper GI endoscopy, patient is much more awake alert oriented 3 but still mildly confused but can make her dictations for herself initially when I discussed with the patient patient doesn't want hospice does want to continue the treatment and see how she does. After extensive discussion patient wanted to be full code as well. Later in the day I was notified that patient wanted hospice evaluation because of which hospice is being consulted at this time. Patient's ammonia level has come down to 1.103 patient is having bowel movements and is on lactulose 02/12/2021 Patient is more drowsier do not have any ammonia level available at this time. Patient's serum creatinine remains at 2.3.. Patient doesn't have any more GI bleed but the INR went up again and giving another dose of IV vitamin K. 02/13/2021 Issue remains on IV fluids patient's abdominal distention is bit worse. Patient Remains at 2.3 patient presently in [place]. Patient is was do not on octreotide. Serum ammonia level has come down to 99. He with the lactulose titrating for 2-3 loose bowel movements a day patient does have anion gap as well as non-anion gap metabolic acidosis. INR is 2.3 will order 10 mg of IV vitamin K. No more GI bleed clinically. Patient is bit more awake today but still appears lethargic. 02/14/2021 In spite of high-grade [facility] medical management no significant improvement in patient clinical condition, patient INR remains high at 2.4 in spite of the IV vitamin K 3 days in a row. Ammonia is above 100 patient is still drowsy patient meld score is very high. Patient wanted hospice hospice was ready consulted mostly probably will be discharged under hospice care tomorrow. Will not obtain any more labs. Patient's creatinine although improved to 1.97 with IV fluids. mostly probably has hepatorenal syndrome along with prerenal azotemia. 02/15/2021: Laying in bed. Tired. Jaundice. Abdominal distention. Abdominal pain. Decreased appetite. 02/16/2021: Laying in bed. Tired. Awake. Jaundiced. Eating about 25%. Able to answer questions. 02/17/2021: Laying in bed. Tired. Eating some. Sluggish. answering occasional question 02/18/2021: Laying in bed. Awake, tired, lethargic. Barely eating. Patient's parents at the bedside. An 8-year-old daughter. Able to answer some questions 02/19/2021: Laying in bed. Tired. Awake. Eating occasionally. Discussed about discharged to ECF/hospice. Consultation: Dr. Swanson from nephrology Dr. Torres from GI On examination: VITAL SIGNS: 98.5, 91, 18, 110/69, 99% room air GENERAL APPEARANCE: Laying in bed, awake, tired HEENT: Normal external appearance of nose and ear. Oral cavity normal EYES: Pupils equal. Conjunctiva icterus. NECK: JVD not raised. Mass not palpable. RESPIRATORY: Respiratory effort increased. Lungs decreased breath sounds CARDIOVASCULAR: First and second sounds normal. No edema. ABDOMEN: Distended. Mild tenderness. Liver spleen not palpable. PSYCHIATRY: Able to answer questions. Lethargic Investigations: February 18: Potassium 3.5 creatinine 3.65 February 17: Potassium 3.4 creatinine 3.4 to bilirubin 35.3 February 16: Potassium 3.6 bilirubin 33.9 WBC 8.7 hemoglobin 7.1 platelets 118 pro time 25.6 Potassium 3.5 creatinine 2.9 AST 52 ALT 11 ammonia 107 albumin 2.3 Abdominal ultrasound: Minimal abdominal ascites Previous abdominal ultrasound: Splenomegaly at 21.1 cm, moderate pelvic ascites. Assessment and plan -Acute upper and lower GI bleed probably variceal and hemorrhoidal bleed , received vitamin K improved GI bleed. No plans for endoscopy at this time. Patient's INR continued to be high -Severe hepatic encephalopathy for which patient is receiving lactulose and rifaximin : Slow to respond, -Alcohol-induced Cirrhosis with highmeld score patient's overall prognosis is extremely poor, hospice was consulted as per the request of the patient -Asymptomatic Covid 19 infection -Acute renal failure: Multifactorial probably secondary to hypotension and intravascular volume depletion in spite of overall volume overload from cirrhosis.: Worsening Coagulopathy secondary to cirrhosis: Not improving -Hypokalemia potassium was replaced -Alcohol use disorder: Continued alcohol use: Until this admission -Seizure disorder for which patient is on antiseizure medications which are being continued -Pancytopenia secondary to cirrhosis -DO NOT RESUSCITATE -Patient be changed over to hospice/[facility] upon discharge [facility] Plan - Discharge Summary Discharge Rx Participant: Yes New Discharge Prescriptions: New Spironolactone [Aldactone] 25 mg PO BID tab Lactulose [Cephulac] 30 gm PO TID ml Midodrine [ProAmatine] 10 mg PO AC-TID tab Continue levETIRAcetam [Keppra] 1,000 mg PO BID Sodium Bicarbonate Tab 650 mg PO TID Omeprazole Magnesium [PriLOSEC OTC] 20 mg PO AC-SUPPER Discontinued Lidocaine [Lidoderm 5% Patch] 1 patch TRANSDERM DAILY Lactulose [Cephulac] 10 gm PO BID Propranolol [Inderal] 20 mg PO HS hydrOXYzine HCL [Atarax] 25 mg PO Q6H PRN PRN Reason: Itching guaiFENesin [guaiFENesin Oral Solution] 100 mg PO Q6H PRN PRN Reason: Cough traMADol HCL 50 mg PO Q6H PRN PRN Reason: Mild Pain Ferrous Sulfate [Iron (65 MG Elemental)] 325 mg PO Q48H Discharge Medication List levETIRAcetam [Keppra] 1,000 mg PO BID 08/07/20 [History] Omeprazole Magnesium [PriLOSEC OTC] 20 mg PO AC-SUPPER 02/09/21 [History] Sodium Bicarbonate Tab 650 mg PO TID 02/09/21 [History] Lactulose [Cephulac] 30 gm PO TID ml 02/19/21 [Rx] Midodrine [ProAmatine] 10 mg PO AC-TID tab 02/19/21 [Rx] Spironolactone [Aldactone] 25 mg PO BID tab 02/19/21 [Rx] Follow up Appointment(s)/Referral(s): Robert Salazar MD [Primary Care Provider] - 1-2 days Kathy Mireles [NON-STAFF] - As Needed Roselia Justin [NON-STAFF] - As Needed
[2021-02-19 14:15] VITALS: BP 90/55; PULSE 84; RESP 20; TEMP 98.4
== END 2021-02-19 17:00 | DRG 368 ==
LOC: EC 20:15 → 5NMEDONC 20:48 → 4SSUR 22:01
PROVIDERS: ADMIT Hospitalist; ATTEND Hospitalist
PROC: 30233K1 Transfusion of Nonautologous Frozen Plasma into Peripheral Vein, Percutaneous Approach (ICD-10-PCS; principal; 2021-02-10)
DX: I85.11 Secondary esophageal varices with bleeding (principal); U07.1 COVID-19; K76.7 Hepatorenal syndrome; N17.0 Acute kidney failure with tubular necrosis; D68.4 Acquired coagulation factor deficiency; K76.6 Portal hypertension; E87.2 Acidosis; D61.818 Other pancytopenia; K70.31 Alcoholic cirrhosis of liver with ascites; I95.9 Hypotension, unspecified; F10.10 Alcohol abuse, uncomplicated; K64.9 Unspecified hemorrhoids; K70.11 Alcoholic hepatitis with ascites; K70.40 Alcoholic hepatic failure without coma; Z51.5 Encounter for palliative care; Z66 Do not resuscitate; F90.9 Attention-deficit hyperactivity disorder, unspecified type; F41.9 Anxiety disorder, unspecified; Z87.891 Personal history of nicotine dependence; Z86.16 Personal history of COVID-19; E86.1 Hypovolemia; E87.6 Hypokalemia; E87.70 Fluid overload, unspecified; G40.909 Epilepsy, unspecified, not intractable, without status epilepticus; Z79.899 Other long term (current) drug therapy; T47.3X6A Underdosing of saline and osmotic laxatives, initial encounter; T50.2X6A Underdosing of carbonic-anhydrase inhibitors, benzothiadiazides and other diuretics, initial encounter; Z91.128 Patient's intentional underdosing of medication regimen for other reason; Z91.410 Personal history of adult physical and sexual abuse; Z98.890 Other specified postprocedural states; Z87.01 Personal history of pneumonia (recurrent); Z88.1 Allergy status to other antibiotic agents; Z88.0 Allergy status to penicillin; Z20.822 Contact with and (suspected) exposure to COVID-19
CPT/HCPCS: 36415; 76705; 76770; 80048; 80053; 81001; 82140; 83605; 83735; 84703; 85025; 85027; 85610; 86850; 86900; 86901; 87635; 99285

== ENCOUNTER 2021-02-21 13:35 | Emergency (ER) | payer OTHER ==
[2021-02-21 15:10] LABS: Albumin 2.9 g/dL (3.5-5.0); Calcium 9.7 mg/dL (8.4-10.2); Potassium 4.2 mmol/L (3.5-5.1); Total Protein 7.5 g/dL (6.3-8.2)
[2021-02-21 15:14] LABS: Lactic Acid, Venous 1.1 mmol/L (0.7-2.0)
[2021-02-21 15:16] LABS: Bilirubin, Conjugated 23.1 mg/dL (0.0-0.3); Bilirubin,Unconjugated 3.1 mg/dL (0.0-1.1)
--- NOTE | 2021-02-21 15:17 | ED ---
Altered Mental Status HPI - General Chief Complaint: Altered Mental Status Stated Complaint: Altered Time Seen by Provider: 02/21/21 14:10 Source: EMS, old records reviewed Mode of arrival: EMS - History of Present Illness Initial Comments: This is a 30-year-old female with a history of alcohol liver cirrhosis, liver failure, multiple admissions for encephalopathy, GI bleed, noncompliance history who presents emergent department for mental status changes. Patient was recently discharged to [facility] [place]. She is reportedly been having worsening mental status over the last couple of days. The patient is quite somnolent and difficult to get a history from however will open her eyes to voice and telemetry the reason she is here and knows her name and her birthdate. However she does tend to fall asleep midsentence. She states that she has been taking her lactulose. Unsure if she's been having bowel movements or not. She really does not complain of any other symptoms except for feeling very sleepy. Pen chart revealed appears that she was here for medication noncompliance. She had mild score performed that showed a 90 more telemetry a 50%. The patient requested to remain full code. She was evaluated by GI and nephrology and medically optimized and sent to [facility]. - Related Data Home Medications Medication Instructions Recorded Confirmed levETIRAcetam [Keppra] 1,000 mg PO Q12H 08/07/20 02/21/21 Sodium Bicarbonate Tab 650 mg PO TID@0600,1400,2200 02/09/21 02/21/21 LORazepam [Ativan] 1 mg PO Q4H PRN 02/21/21 02/21/21 Lactulose [Cephulac] 30 gm PO TID@0600,1400,2200 02/21/21 02/21/21 MORPHINE ORAL ANITRA CONC 20mg/mL 10 mg PO Q4H PRN 02/21/21 02/21/21 [Roxanol Oral Soln Conc 20MG/ML] Midodrine HCl [ProAmatine] 10 mg PO AC-TID 02/21/21 02/21/21 Omeprazole 20 mg PO DAILY 02/21/21 02/21/21 Spironolactone [Aldactone] 25 mg PO BID@0900,1700 02/21/21 02/21/21 Allergies Allergy/AdvReac Type Severity Reaction Status Date / Time ceftriaxone Allergy Anaphylaxis Verified 02/21/21 18:27 Penicillins Allergy Rash/Hives Verified 02/21/21 18:27 Review of Systems ROS Statement: Those systems with pertinent positive or pertinent negative responses have been documented in the HPI. ROS Other: All systems not noted in ROS Statement are negative. Past Medical History Past Medical History: GERD/Reflux, Liver Disease, Pneumonia, Seizure Disorder Additional Past Medical History / Comment(s): alcohol abuse/acute hepatic encephalopathy/end stage liver disease/ascitis with paracentesis/thrombocytopenia/hypomagnesemia. Other HX: Last seizure , bronchitis, sepsis in 2013, UTI, cholecystitis, pancytopenia, chronic anemia, pa ncreatitis, liver failure r/t ETOH abuse. intubated due to detox from ETOH. History of Any Multi-Drug Resistant Organisms: None Reported Past Surgical History: Section, Orthopedic Surgery Additional Past Surgical History / Comment(s): R ankle surgery d/t fracture, R foot surgery-pt cannot recall cause, C-diff 12/18/2020 Past Anesthesia/Blood Transfusion Reactions: No Reported Reaction, Motion Sickness Additional Past Anesthesia/Blood Transfusion Reaction / Comment(s): Pt has received blood in past without reaction. Past Psychological History: ADD/ADHD, Anxiety Smoking Status: Former smoker Past Alcohol Use History: Abuse, Daily, Heavy Past Drug Use History: None Reported - Past Family History Father Family Medical History: No Reported History Additional Family Medical History / Comment(s): anxiety Mother Family Medical History: No Reported History Additional Family Medical History / Comment(s): Mother is healthy General Exam - General Exam Comments Initial Comments: Constitutional: He is quite somnolent however will awaken to voice. She'll open her eyes and will speak and carry on a conversation for a few seconds before starting to fall back asleep again Appears comfortable Head: Normocephalic atraumatic Eyes: no conjunctival injection there is significant scleral icterus EOMI Neck: No JVD Supple Heart: Regular rate rhythm normal S1-S2 no murmurs Lungs: Clear to auscultation bilaterally No wheezing No rales Abdomen: Soft is a distended abdomen however no tenderness to palpation consistent with her ascites Extremities: Non edematous DP pulses intact Radial pulses intact Neuro: Patient is sleepy however will awaken to voice and is oriented 3 No focal neurologic deficits, GCS of 13 Psych: Appropriate mood and affect Course Vital Signs 02/21/21 02/21/21 02/21/21 13:40 15:09 16:14 Temperature 98.4 F Pulse Rate 94 87 87 Respiratory 16 18 15 Rate Blood Pressure 108/52 104/60 111/56 O2 Sat by Pulse 98 95 100 Oximetry 02/21/21 17:28 Temperature Pulse Rate 88 Respiratory 18 Rate Blood Pressure 104/53 O2 Sat by Pulse 99 Oximetry - Reevaluation(s) Reevaluation #1: 02/21/21 15:20 EKG showing normal sinus rhythm with rate of 88. No abnormal ST segment changes or T-wave inversions. QTC is 517. Other intervals normal. No ectopy. Reevaluation #2: I spoke with family over the phone. The patient was admitted to hospice and sent over to [facility] [place] however the family states that the still wanted full code and want her treated and felt that she was not doing well over the nursing facility which is why they requested that she be sent to. The family is coming here for further discussion. 02/21/21 15:48 Reevaluation #3: 02/21/21 17:[address] Muñiz about the patient. He states the patient made the decision herself to be DNR and to be enrolled in hospice. There is nothing else that can be done for her per all the consultants that saw her. She was enrolled in [facility]. I will attempt to speak with [facility] to clarify. Family is on their way in. Reevaluation #4: 02/21/21 18:34 Noted allergy to ceftriaxone. Will stop. Reevaluation #5: 02/21/21 19:15 Family now agreeable to DNR and hospice. [facility] will accept the patient back and I spoke with [facility] who stated they would re-enroll michelle. Pt to be transferred back to [facility]. 02/21/21 19:34 Medical Decision Making - Lab Data Result diagrams: 02/21/21 14:36 02/21/21 14:36 Lab Results 02/21/21 02/21/21 02/21/21 Range/Units 14:36 14:36 14:36 WBC 12.5 H (3.8-10.6) k/uL RBC 2.60 L (3.80-5.40) m/uL Hgb 9.4 L (11.4-16.0) gm/dL Hct 28.1 L (34.0-46.0) % MCV 107.8 H (80.0-100.0) fL MCH 36.0 H (25.0-35.0) pg MCHC 33.4 (31.0-37.0) g/dL RDW 17.9 H (11.5-15.5) % Plt Count 88 L (150-450) k/uL MPV 6.8 Neutrophils % 80 % Lymphocytes % 9 % Monocytes % 7 % Eosinophils % 1 % Basophils % 1 % Neutrophils # 10.0 H (1.3-7.7) k/uL Lymphocytes # 1.1 (1.0-4.8) k/uL Monocytes # 0.9 (0-1.0) k/uL Eosinophils # 0.1 (0-0.7) k/uL Basophils # 0.1 (0-0.2) k/uL Manual Slide Review Performed Hypochromasia Marked Poikilocytosis Moderate Anisocytosis Slight Macrocytosis Marked A PT 21.8 H (9.0-12.0) sec INR 2.2 H (<1.2) APTT 64.3 H (22.0-30.0) sec Sodium (137-145) mmol/L Potassium (3.5-5.1) mmol/L Chloride (98-107) mmol/L Carbon Dioxide (22-30) mmol/L Anion Gap mmol/L BUN (7-17) mg/dL Creatinine (0.52-1.04) mg/dL Est GFR (CKD-EPI)AfAm (>60 ml/min/1.73 sqM) Est GFR (CKD-EPI)NonAf (>60 ml/min/1.73 sqM) Glucose (74-99) mg/dL Plasma Lactic Acid John (0.7-2.0) mmol/L Calcium (8.4-10.2) mg/dL Total Bilirubin (0.2-1.3) mg/dL Conjugated Bilirubin (0.0-0.3) mg/dL Unconjugated Bilirubin (0.0-1.1) mg/dL Delta Bilirubin (0.0-0.2) mg/dL AST (14-36) U/L ALT (4-34) U/L Alkaline Phosphatase (38-126) U/L Ammonia (<30) umol/L Troponin I (0.000-0.034) ng/mL Total Protein (6.3-8.2) g/dL Albumin (3.5-5.0) g/dL Amylase (30-110) U/L Lipase (23-300) U/L Urine Color Dark Brown Urine Appearance Turbid H (Clear) Urine pH 6.0 (5.0-8.0) Ur Specific Benton 1.014 (1.001-1.035) Urine Protein 1+ H (Negative) Urine Glucose (UA) Negative (Negative) Urine Ketones Negative (Negative) Urine Blood Small H (Negative) Urine Nitrite Negative (Negative) Urine Bilirubin 4+ H (Negative) Urine Urobilinogen <2.0 (<2.0) mg/dL Ur Leukocyte Esterase Large H (Negative) Urine WBC >182 H (0-5) /hpf Urine WBC Clumps Many H (None) /hpf Urine Bacteria Occasional H (None) /hpf Granular Casts 27 (0) /lpf Urine Mucus Occasional H (None) /hpf Serum Alcohol mg/dL 02/21/21 02/21/21 02/21/21 Range/Units 14:36 14:36 14:36 WBC (3.8-10.6) k/uL RBC (3.80-5.40) m/uL Hgb (11.4-16.0) gm/dL Hct (34.0-46.0) % MCV (80.0-100.0) fL MCH (25.0-35.0) pg MCHC (31.0-37.0) g/dL RDW (11.5-15.5) % Plt Count (150-450) k/uL MPV Neutrophils % % Lymphocytes % % Monocytes % % Eosinophils % % Basophils % % Neutrophils # (1.3-7.7) k/uL Lymphocytes # (1.0-4.8) k/uL Monocytes # (0-1.0) k/uL Eosinophils # (0-0.7) k/uL Basophils # (0-0.2) k/uL Manual Slide Review Hypochromasia Poikilocytosis Anisocytosis Macrocytosis PT (9.0-12.0) sec INR (<1.2) APTT (22.0-30.0) sec Sodium 142 (137-145) mmol/L Potassium 4.2 (3.5-5.1) mmol/L Chloride 111 H (98-107) mmol/L Carbon Dioxide 20 L (22-30) mmol/L Anion Gap 11 mmol/L BUN 25 H (7-17) mg/dL Creatinine 3.83 H (0.52-1.04) mg/dL Est GFR (CKD-EPI)AfAm 17 (>60 ml/min/1.73 sqM) Est GFR (CKD-EPI)NonAf 15 (>60 ml/min/1.73 sqM) Glucose 86 (74-99) mg/dL Plasma Lactic Acid John 1.1 (0.7-2.0) mmol/L Calcium 9.7 (8.4-10.2) mg/dL Total Bilirubin 38.2 H* (0.2-1.3) mg/dL Conjugated Bilirubin 23.1 H (0.0-0.3) mg/dL Unconjugated Bilirubin 3.1 H (0.0-1.1) mg/dL Delta Bilirubin 12.0 H (0.0-0.2) mg/dL AST 51 H (14-36) U/L ALT 10 (4-34) U/L Alkaline Phosphatase 168 H (38-126) U/L Ammonia 152 H (<30) umol/L Troponin I <0.012 (0.000-0.034) ng/mL Total Protein 7.5 (6.3-8.2) g/dL Albumin 2.9 L (3.5-5.0) g/dL Amylase 74 (30-110) U/L Lipase 73 (23-300) U/L Urine Color Urine Appearance (Clear) Urine pH (5.0-8.0) Ur Specific Benton (1.001-1.035) Urine Protein (Negative) Urine Glucose (UA) (Negative) Urine Ketones (Negative) Urine Blood (Negative) Urine Nitrite (Negative) Urine Bilirubin (Negative) Urine Urobilinogen (<2.0) mg/dL Ur Leukocyte Esterase (Negative) Urine WBC (0-5) /hpf Urine WBC Clumps (None) /hpf Urine Bacteria (None) /hpf Granular Casts (0) /lpf Urine Mucus (None) /hpf Serum Alcohol mg/dL 02/21/21 Range/Units 17:33 WBC (3.8-10.6) k/uL RBC (3.80-5.40) m/uL Hgb (11.4-16.0) gm/dL Hct (34.0-46.0) % MCV (80.0-100.0) fL MCH (25.0-35.0) pg MCHC (31.0-37.0) g/dL RDW (11.5-15.5) % Plt Count (150-450) k/uL MPV Neutrophils % % Lymphocytes % % Monocytes % % Eosinophils % % Basophils % % Neutrophils # (1.3-7.7) k/uL Lymphocytes # (1.0-4.8) k/uL Monocytes # (0-1.0) k/uL Eosinophils # (0-0.7) k/uL Basophils # (0-0.2) k/uL Manual Slide Review Hypochromasia Poikilocytosis Anisocytosis Macrocytosis PT (9.0-12.0) sec INR (<1.2) APTT (22.0-30.0) sec Sodium (137-145) mmol/L Potassium (3.5-5.1) mmol/L Chloride (98-107) mmol/L Carbon Dioxide (22-30) mmol/L Anion Gap mmol/L BUN (7-17) mg/dL Creatinine (0.52-1.04) mg/dL Est GFR (CKD-EPI)AfAm (>60 ml/min/1.73 sqM) Est GFR (CKD-EPI)NonAf (>60 ml/min/1.73 sqM) Glucose (74-99) mg/dL Plasma Lactic Acid John (0.7-2.0) mmol/L Calcium (8.4-10.2) mg/dL Total Bilirubin (0.2-1.3) mg/dL Conjugated Bilirubin (0.0-0.3) mg/dL Unconjugated Bilirubin (0.0-1.1) mg/dL Delta Bilirubin (0.0-0.2) mg/dL AST (14-36) U/L ALT (4-34) U/L Alkaline Phosphatase (38-126) U/L Ammonia (<30) umol/L Troponin I (0.000-0.034) ng/mL Total Protein (6.3-8.2) g/dL Albumin (3.5-5.0) g/dL Amylase (30-110) U/L Lipase (23-300) U/L Urine Color Urine Appearance (Clear) Urine pH (5.0-8.0) Ur Specific Benton (1.001-1.035) Urine Protein (Negative) Urine Glucose (UA) (Negative) Urine Ketones (Negative) Urine Blood (Negative) Urine Nitrite (Negative) Urine Bilirubin (Negative) Urine Urobilinogen (<2.0) mg/dL Ur Leukocyte Esterase (Negative) Urine WBC (0-5) /hpf Urine WBC Clumps (None) /hpf Urine Bacteria (None) /hpf Granular Casts (0) /lpf Urine Mucus (None) /hpf Serum Alcohol <10 mg/dL Disposition Clinical Impression: Liver failure, Hepatic encephalopathy Disposition: DC/TRNS W/I HOSP TO SNF SWING Condition: Critical Referrals: Percy Seo MD [Primary Care Provider] - 1-2 days
[2021-02-21 15:18] LABS: Total Bilirubin 38.2 mg/dL (0.2-1.3)
[2021-02-21] MEDS ORDERED: LACTULOSE 20 GM/30 ML CUP PO ONE (15:18)
[2021-02-21 15:21] LABS: INR 2.2 (<1.2); Prothrombin Time 21.8 sec (9.0-12.0)
[2021-02-21 15:25] LABS: Anisocytosis Slight; Basophils # (A) 0.1 k/uL (0-0.2); Basophils % (A) 1 %; Eosinophils # (A) 0.1 k/uL (0-0.7); Eosinophils % (A) 1 %; HCT 28.1 % (34.0-46.0); HGB 9.4 gm/dL (11.4-16.0); Hypochromasia Marked; Lymphocytes # (A) 1.1 k/uL (1.0-4.8); Lymphocytes % (A) 9 %; MCHC 33.4 g/dL (31.0-37.0); MCV 107.8 fL (80.0-100.0); Macrocytosis Marked; Mean Platelet Volume 6.8; Monocytes # (A) 0.9 k/uL (0-1.0); Monocytes % (A) 7 %; Neutrophils % (A) 80 %; Poikilocytosis Moderate; RDW 17.9 % (11.5-15.5); WBC 12.5 k/uL (3.8-10.6)
[2021-02-21 15:26] LABS: Platelet Count 88 k/uL (150-450)
[2021-02-21 15:28] LABS: Partial Thromboplastin Time 64.3 sec (22.0-30.0)
--- NOTE | 2021-02-21 15:47 | XR ---
EXAMINATION TYPE: XR chest 1V portable DATE OF EXAM: 02/21/2021 COMPARISON: 11/09/2020. HISTORY: Altered mental status. TECHNIQUE: Single frontal view of the chest is obtained. FINDINGS: There is mild to moderate perihilar and bibasilar streaky and hazy opacities. There is pro bable trace left pleural effusion. No pneumothorax seen. The cardiac silhouette size is enlarged. The osseous structures are intact. IMPRESSION: Mild to moderate opacities may represent atelectasis/edema. Superimposed infiltrates not excluded.
[2021-02-21 17:33] VITALS: RESP 18
[2021-02-21 18:24] LABS: Appearance,Urine Turbid (Clear); Bacteria,Urine Occasional /hpf; Bilirubin,Urine 4+ (Negative); Blood,Urine Small (Negative); Color,Urine Dark Brown; Glucose,Urine (UA) Negative (Negative); Granular Casts,Urine 27 /lpf (0); Ketones,Urine Negative (Negative); Leukocyte Esterase,Urine Large (Negative); Mucus,Urine Occasional /hpf; Nitrite,Urine Negative (Negative); Protein,Urine 1+ (Negative); Specific Gravity,Urine 1.014 (1.001-1.035); Urobilinogen,Urine <2.0 mg/dL (<2.0); WBC,Urine >182 /hpf (0-5)
[2021-02-21 21:10] VITALS: BP 108/62; PULSE 91; TEMP 99.2
== END 2021-02-21 20:46 | disposition swing bed (61) ==
LOC: EC 13:35
DX: K72.90 Hepatic failure, unspecified without coma (principal); K21.9 Gastro-esophageal reflux disease without esophagitis; G40.909 Epilepsy, unspecified, not intractable, without status epilepticus; F41.9 Anxiety disorder, unspecified; Z79.899 Other long term (current) drug therapy; Z87.891 Personal history of nicotine dependence; Z88.0 Allergy status to penicillin; Z88.1 Allergy status to other antibiotic agents
CPT/HCPCS: 36415; 93005; 80053; 82140; 82150; 82248; 83605; 83690; 84484; 85025; 85610; 85730; 81001; 87040; 71045; 99285; G0480; 80320